=== PATIENT | female | born 1970 | race Caucasian/White ===

== ENCOUNTER 2016-12-27 12:06 | Emergency (ER) | payer OTHER ==
[2016-12-27 12:50] VITALS: TEMP 98.1
[2016-12-27] MEDS ORDERED: HYDROmorphone 1 MG/ML 1 ML SYRINGE IM STA (13:23)
--- NOTE | 2016-12-27 13:26 | ED ---
General Adult HPI - General Chief complaint: Back Pain/Injury Stated complaint: Back/leg pain Time Seen by Provider: 12/27/16 13:00 Source: patient, RN notes reviewed Mode of arrival: ambulatory Limitations: no limitations - History of Present Illness Initial comments: This is a 46-year-old female presents with an exacerbation of chronic low back pain. Patient states she was at her neurologist this morning who sent her over for a computed tomography scan due to worsening symptoms. Patient admits to radicular pain down the posterior right leg and increasing posterior right hip pain. Patient states she does have a history of sciatica but it has never been this bad before. Patient denies any numbness/tingling or weakness. Patient states the pain is worse with coughing and when she coughs she feels weak in her knees from the pain. Patient states she is getting a procedure to help with her nerve pain in 2 weeks by her neurologist. Patient has taken [place] at 7 :30 AM this morning. Patient denies any change in bowel or bladder function or loss of sensation to the saddle area. Patient is able to ambulate, but states is painful. Patient denies any recent fever, chills, shortness breath, chest pain, abdominal pain, nausea/vomiting/diarrhea, hematuria, headache, or visual changes, or any other complaints. - Related Data Home Medications Medication Instructions Recorded Confirmed Ipratropium [place] [Atrovent Hfa] 2 puff INHALATION QID PRN 03/16/14 12/27/16 Ipratropium/Albuterol Sulfate 1 tab PO TID PRN 03/16/14 12/27/16 [Combivent Respimat Inhaler] LORazepam [Ativan] 1 mg PO TID 03/16/14 12/27/16 Previous Rx's Medication Instructions Recorded Albuterol Inhaler [Ventolin Hfa 2 puff INHALATION Q4HR PRN #1 07/27/15 Inhaler] inhaler predniSONE 50 mg PO DAILY #5 tab 07/27/15 predniSONE 50 mg PO DAILY #5 tab 12/20/15 Allergies Allergy/AdvReac Type Severity Reaction Status Date / Time pregabalin [From Lyrica] Allergy Unknown Verified 12/27/16 12:51 Review of Systems ROS Statement: Those systems with pertinent positive or pertinent negative responses have been documented in the HPI. ROS Other: All systems not noted in ROS Statement are negative. Past Medical History Past Medical History: Asthma, COPD Additional Past Medical History / Comment(s): anxiety History of Any Multi-Drug Resistant Organisms: None Reported Past Surgical History: Adenoidectomy, Cholecystectomy, Hysterectomy, Tonsillectomy Past Psychological History: No Psychological Hx Reported Smoking Status: Current every day smoker Past Alcohol Use History: Occasional, Rare Past Drug Use History: None Reported General Exam - General Exam Comments Initial Comments: General: The patient is awake and alert, in no distress, and does not appear acutely ill. Neck: The neck is supple, there is no tenderness or JVD. Cardiovascular: There is a regular rate and rhythm. No murmur, rub or gallop is appreciated. Respiratory: Lungs are clear to auscultation, respirations are non-labored, breath sounds are equal. No wheezes, stridor, rales, or rhonchi. Musculoskeletal: There is tenderness to palpation over the lumbar spine and to the right side paraspinal muscles along with tenderness to palpation of the posterior right hip. Negative straight leg raise. Patient has full range of motion, strength 5/5 and Sensation intact. Posterior tibial pulses 2+ bilaterally. Neurological: A&O x 3. CN II-XII intact, There are no obvious motor or sensory deficits. Coordination appears grossly intact. Speech is normal. Skin: Skin is warm and dry and no rashes or lesions are noted. Psychiatric: Normal mood and affect. Limitations: no limitations Course Vital Signs 12/27/16 12/27/16 12:45 15:02 Temperature 98.1 F 98.1 F Pulse Rate 92 84 Respiratory 16 20 Rate Blood Pressure 146/92 105/84 O2 Sat by Pulse 98 Oximetry Medical Decision Making - Medical Decision Making This is a 46-year-old female with an exacerbation of chronic back pain. Patient is requesting a computed tomography scan for her neurologist. On physical exam patient is neurologically intact. There is tenderness to palpation over the lumbar spine and to the right side paraspinal muscles along with tenderness to palpation of the posterior right hip. Negative straight leg raise. Patient has full range of motion, strength 5/5 and Sensation intact. Posterior tibial pulses 2+ bilaterally. Patient was given Dilaudid in the [facility] for pain and felt relief from this. A CT scan of the lumbar spine without contrast was done and reviewed showing: # 1 no vertebral compression collapse or malalignment. #2 mild multilevel degenerative disc disease with bulging disks. No canal compromise seen. #3 there is mild narrowing of the right sided neural foramina at L4-L5 and L5-S1. Reported by Dr. Sheppard. I discussed results with patient. I discussed a course of steroids to help with the patient's pain but patient states she is restricted from using steroids and NSAIDs until the procedure she is having with her neurologist in a few days. I discussed that with patient should continue her at home pain medication along with heating pads and ice. I discussed return parameters. I discussed that patient should follow-up with her neurologist in the next 1-2 days and also with her primary care physician or return to the [facility] for any worsening symptoms or for any further concerns. Patient was receptive to this plan and patient was discharged home. Disposition Clinical Impression: Acute exacerbation of chronic low back pain Disposition: HOME SELF-CARE Condition: Good Instructions: Chronic Back Pain (ED) Additional Instructions: Please continue your at home pain medications along with ice and heat. Please continue to follow up here neurologist and also follow-up through primary care physician in the next 1-2 days. Please return to the [facility] for worsening symptoms or for any further concerns. Referrals: Isael Palomares DO [Primary Care Provider] - 1-2 days Time of Disposition: 14:57
--- NOTE | 2016-12-27 14:35 | CT ---
EXAMINATION TYPE: CT lumbar spine wo con DATE OF EXAM: 12/27/2016 2:18 PM COMPARISON: NONE HISTORY: 46-year-old female with low back pain. TECHNIQUE: Contiguous axial scanning of the lumbar spine without IV contrast. Coronal and sagittal re constructions performed. CT DLP: 377.6 mGycm Automated exposure control for dose reduction was used. FINDINGS: Moderate atherosclerotic calcifications throughout the abdominal aorta with areas of fusiform dilatat ion and no significant ectasia or aneurysm. Vertebral body heights are preserved and alignment is maintained. Small endplate Schmorl's nodes within the lower thoracic and upper lumbar spine. Very mild bulging di scs in the mid to lower lumbar spine. No significant spinal canal stenosis seen. On the left, no significant neuroforaminal stenosis. On the right, there is mild neuroforaminal narrowing at L4-L5 and L5-S1. IMPRESSION: 1. NO VERTEBRAL COMPRESSION COLLAPSE OR MALALIGNMENT. 2. MILD MULTILEVEL DEGENERATIVE DISC DISEASE WITH BULGING DISCS. NO CANAL COMPROMISE SEEN. 3. THERE IS MILD NARROWING OF THE RIGHT-SIDED NEURAL FORAMINA AT L4-L5 AND L5-S1.
[2016-12-27 15:06] VITALS: BP 105/84; PULSE 84; RESP 20
== END 2016-12-27 15:10 | disposition home or self-care (01) ==
LOC: EC 12:06
DX: G89.29 Other chronic pain (principal); M54.5 Low back pain; M25.551 Pain in right hip; R05 Cough; F17.200 Nicotine dependence, unspecified, uncomplicated; Z88.8 Allergy status to other drugs, medicaments and biological substances
CPT/HCPCS: 72131; 99283; 96372; J1170

== ENCOUNTER → 2017-01-03 | Outpatient (CLI) | payer OTHER ==
--- NOTE | 2017-01-03 12:15 | XR ---
EXAMINATION TYPE: XR Hip Complete RT DATE OF EXAM: 01/03/2017 12:01 PM CLINICAL HISTORY: pain TECHNIQUE: AP and frogleg views of the right hip are obtained. COMPARISON: None. FINDINGS: At the lateral aspect of the obturator foramen there is linear ossific density with cortica l thickening of the adjacent ischium. This is of uncertain etiology may reflect chronic avulsion inju ry. IMPRESSION: 1. Avulsion fracture as discussed above of indeterminate age is difficult to exclude. Similar CT cor relation.
== END | disposition home or self-care (01) ==
LOC: RADXRMAIN 11:37
PROVIDERS: ATTEND Psychiatry & Neurology Neurology
DX: M25.551 Pain in right hip (principal)
CPT/HCPCS: 73502

== ENCOUNTER → 2017-12-16 | Outpatient (CLI) | payer OTHER ==
--- NOTE | 2017-12-16 14:21 | XR ---
EXAMINATION TYPE: XR tibia fibula LT DATE OF EXAM: 12/16/2017 COMPARISON: NONE HISTORY: 47-year-old female with left-sided pain posterior calf. TECHNIQUE: 2 views FINDINGS: No acute fracture, subluxation, or dislocation seen. No periostitis or osteolysis. IMPRESSION: No acute osseous abnormality seen.
== END | disposition home or self-care (01) ==
LOC: RADXRMAIN 12:06
PROVIDERS: ATTEND Family Medicine
DX: M79.605 Pain in left leg (principal)

== ENCOUNTER 2018-02-12 12:28 | Emergency (ER) | payer OTHER ==
[2018-02-12] MEDS ORDERED: methylPREDNISolone SOD SUCCI 125 MG/2 ML VIAL IV STA (13:05)
[2018-02-12] MEDS ORDERED: SODIUM CHLORIDE 0.9% 500 ML IV STA (13:05)
[2018-02-12] MEDS ORDERED: IPRATROPIUM 0.5 MG/2.5 ML NEBU INHALATION STA (13:05)
[2018-02-12] MEDS ORDERED: ALBUTEROL NEBULIZED 2.5 MG/3 ML INHALATION STA (13:05)
--- NOTE | 2018-02-12 13:17 | ED ---
General Adult HPI - General Chief complaint: Shortness of Breath Stated complaint: CHEO, HYPERTENSION Time Seen by Provider: 02/12/18 13:00 Source: patient, RN notes reviewed, old records reviewed Mode of arrival: wheelchair Limitations: no limitations - History of Present Illness Initial comments: 47-year-old female presenting with 5 day history of cough and fatigue. Patient is a smoker, although she is cutting back. She has a history of COPD which has not required significant treatment in the past. She states her cough is productive of white sputum. She is complaining of right-sided posterior chest pain, worse with cough and deep breathing. This pain is sharp in nature. Denies any central chest pain. She has had some belching and central burning with no radiating central chest pain. No history of CAD. No nausea vomiting. No fever, patient has had chills. She complains of some nasal congestion which she attributed to seasonal ALLERGIES. She does have a remote history of spontaneous pneumothorax when she was 20. She states this pain in the right side of her chest is different. - Related Data Home Medications Medication Instructions Recorded Confirmed Ipratropium/Albuterol Sulfate 1 puff INHALATION RT-BID 03/16/14 02/12/18 [Combivent Respimat Inhaler] Albuterol Inhaler [Ventolin Hfa 2 puff INHALATION RT-Q4H PRN 02/12/18 02/12/18 Inhaler] Gabapentin [Neurontin] 100 mg PO DAILY 02/12/18 02/12/18 Gabapentin [Neurontin] 300 mg PO HS 02/12/18 02/12/18 HYDROcodone/APAP 7.5-325MG [[place] 1 tab PO QID 02/12/18 02/12/18 7.5-325] Meclizine [Antivert] 25 mg PO BID 02/12/18 02/12/18 Meloxicam [Mobic] 15 mg PO DAILY 02/12/18 02/12/18 busPIRone HCL 15 mg PO BID 02/12/18 02/12/18 hydrOXYzine HCL [Atarax] 50 mg PO QID 02/12/18 02/12/18 tiZANidine [Zanaflex] 2 mg PO HS 02/12/18 02/12/18 tiZANidine [Zanaflex] 4 mg PO HS 02/12/18 02/12/18 traZODone HCL 100 mg PO HS 02/12/18 02/12/18 Previous Rx's Medication Instructions Recorded Albuterol Inhaler [Ventolin Hfa 1 - 2 puff INHALATION Q4HR PRN #1 02/12/18 Inhaler] inhaler Azithromycin [Zithromax Z-pack] 0 mg PO DIRECTED #6 tab 02/12/18 predniSONE 50 mg PO DAILY #5 tab 02/12/18 Allergies Allergy/AdvReac Type Severity Reaction Status Date / Time pregabalin [From Lyrica] Allergy Unknown Verified 02/12/18 12:55 Review of Systems ROS Statement: Those systems with pertinent positive or pertinent negative responses have been documented in the HPI. ROS Other: All systems not noted in ROS Statement are negative. Past Medical History Past Medical History: Asthma, COPD Additional Past Medical History / Comment(s): anxiety, neuropathy rt side, back and neck pain History of Any Multi-Drug Resistant Organisms: None Reported Past Surgical History: Adenoidectomy, Cholecystectomy, Hysterectomy, Tonsillectomy Additional Past Surgical History / Comment(s): ablation to back Past Psychological History: No Psychological Hx Reported Smoking Status: Current every day smoker Past Alcohol Use History: Rare Past Drug Use History: None Reported General Exam Limitations: no limitations General appearance: alert, in no apparent distress Head exam: Present: atraumatic, normocephalic Eye exam: Present: normal appearance, PERRL, EOMI ENT exam: Present: normal exam Neck exam: Present: normal inspection. Absent: tenderness, meningismus Respiratory exam: Present: decreased breath sounds. Absent: respiratory distress, wheezes, rhonchi, accessory muscle use Cardiovascular Exam: Present: normal rhythm, tachycardia GI/Abdominal exam: Present: soft. Absent: distended, tenderness Extremities exam: Present: normal inspection, normal capillary refill. Absent: tenderness, calf tenderness Neurological exam: Present: alert, oriented X3, CN II-XII intact. Absent: motor sensory deficit Psychiatric exam: Present: normal affect, normal mood Skin exam: Present: warm, dry, intact. Absent: cyanosis, diaphoretic Course Vital Signs 02/12/18 02/12/18 02/12/18 12:33 13:26 13:55 Temperature 96.9 F L Pulse Rate 103 H 84 88 Respiratory 18 Rate Blood Pressure 106/78 O2 Sat by Pulse 98 Oximetry EKG Findings - EKG Comments: EKG Findings:: EKG, normal sinus rhythm, biatrial enlargement, rate of 95, NC interval 126, QRS duration 84, QTC 469, there is no ST segment elevation Medical Decision Making - Medical Decision Making 47-year-old female presenting with cough and sharp chest pain worse with cough. Patient does have history of COPD. On exam she has diminished air entry bilaterally. She is given albuterol, Atrovent and steroids. On reevaluation she is improved air entry and is feeling somewhat better. Laboratory studies are obtained, normal CBC, normal CMP, negative troponin and d-dimer. EKG is nonischemic. Chest x-ray negative for focal pneumonia, and negative for pneumothorax. Patient will be treated for COPD exacerbation and will follow-up with her primary care physician. She is encouraged to quit smoking. - Lab Data Result diagrams: 02/12/18 13:35 02/12/18 13:35 Lab Results 02/12/18 02/12/18 02/12/18 Range/Units 13:35 13:35 13:35 WBC 7.6 (3.8-10.6) k/uL RBC 4.90 (3.80-5.40) m/uL Hgb 15.3 (11.4-16.0) gm/dL Hct 45.0 (34.0-46.0) % MCV 91.9 (80.0-100.0) fL MCH 31.3 (25.0-35.0) pg MCHC 34.0 (31.0-37.0) g/dL RDW 12.6 (11.5-15.5) % Plt Count 269 (150-450) k/uL Neutrophils % 63 % Lymphocytes % 27 % Monocytes % 6 % Eosinophils % 1 % Basophils % 1 % Neutrophils # 4.8 (1.3-7.7) k/uL Lymphocytes # 2.1 (1.0-4.8) k/uL Monocytes # 0.4 (0-1.0) k/uL Eosinophils # 0.1 (0-0.7) k/uL Basophils # 0.1 (0-0.2) k/uL PT (9.0-12.0) sec INR (<1.2) APTT (22.0-30.0) sec D-Dimer (<0.60) mg/L FEU Sodium 141 (137-145) mmol/L Potassium 4.5 (3.5-5.1) mmol/L Chloride 105 (98-107) mmol/L Carbon Dioxide 24 (22-30) mmol/L Anion Gap 12 mmol/L BUN 14 (7-17) mg/dL Creatinine 0.88 (0.52-1.04) mg/dL Est GFR (CKD-EPI)AfAm >90 (>60 ml/min/1.73 sqM) Est GFR (CKD-EPI)NonAf 79 (>60 ml/min/1.73 sqM) Glucose 81 (74-99) mg/dL Calcium 9.8 (8.4-10.2) mg/dL Magnesium 2.0 (1.6-2.3) mg/dL Total Bilirubin 0.5 (0.2-1.3) mg/dL AST 15 (14-36) U/L ALT 17 (9-52) U/L Alkaline Phosphatase 87 (38-126) U/L Total Creatine Kinase 71 (30-135) U/L CK-MB (CK-2) 1.0 (0.0-2.4) ng/mL CK-MB (CK-2) Rel Index 1.4 Troponin I <0.012 (0.000-0.034) ng/mL NT-Pro-B Natriuret Pep pg/mL Total Protein 6.8 (6.3-8.2) g/dL Albumin 4.3 (3.5-5.0) g/dL 02/12/18 02/12/18 Range/Units 13:35 13:35 WBC (3.8-10.6) k/uL RBC (3.80-5.40) m/uL Hgb (11.4-16.0) gm/dL Hct (34.0-46.0) % MCV (80.0-100.0) fL MCH (25.0-35.0) pg MCHC (31.0-37.0) g/dL RDW (11.5-15.5) % Plt Count (150-450) k/uL Neutrophils % % Lymphocytes % % Monocytes % % Eosinophils % % Basophils % % Neutrophils # (1.3-7.7) k/uL Lymphocytes # (1.0-4.8) k/uL Monocytes # (0-1.0) k/uL Eosinophils # (0-0.7) k/uL Basophils # (0-0.2) k/uL PT 10.2 (9.0-12.0) sec INR 1.0 (<1.2) APTT 24.8 (22.0-30.0) sec D-Dimer 0.31 (<0.60) mg/L FEU Sodium (137-145) mmol/L Potassium (3.5-5.1) mmol/L Chloride (98-107) mmol/L Carbon Dioxide (22-30) mmol/L Anion Gap mmol/L BUN (7-17) mg/dL Creatinine (0.52-1.04) mg/dL Est GFR (CKD-EPI)AfAm (>60 ml/min/1.73 sqM) Est GFR (CKD-EPI)NonAf (>60 ml/min/1.73 sqM) Glucose (74-99) mg/dL Calcium (8.4-10.2) mg/dL Magnesium (1.6-2.3) mg/dL Total Bilirubin (0.2-1.3) mg/dL AST (14-36) U/L ALT (9-52) U/L Alkaline Phosphatase (38-126) U/L Total Creatine Kinase (30-135) U/L CK-MB (CK-2) (0.0-2.4) ng/mL CK-MB (CK-2) Rel Index Troponin I (0.000-0.034) ng/mL NT-Pro-B Natriuret Pep 85 pg/mL Total Protein (6.3-8.2) g/dL Albumin (3.5-5.0) g/dL Disposition Clinical Impression: Acute exacerbation of chronic obstructive airways disease Disposition: HOME SELF-CARE Condition: Good Instructions: Chronic Bronchitis (ED) Prescriptions: Albuterol Inhaler [Ventolin Hfa Inhaler] 1 - 2 puff INHALATION Q4HR PRN #1 inhaler PRN Reason: Shortness Of Breath Azithromycin [Zithromax Z-pack] 0 mg PO DIRECTED #6 tab predniSONE 50 mg PO DAILY #5 tab Is patient prescribed a controlled substance at d/c from ED?: No Referrals: Isael Palomares DO [Primary Care Provider] - 1-2 days Time of Disposition: 14:34
--- NOTE | 2018-02-12 13:27 | XR ---
EXAMINATION TYPE: XR chest 2V DATE OF EXAM: 02/12/2018 COMPARISON: Chest x-ray July 27, 2015. HISTORY: History of COPD with cough and chest pain. TECHNIQUE: Frontal and lateral views of the chest are obtained. FINDINGS: Underlying emphysematous change is redemonstrated. There is no focal air space opacity, pl eural effusion, or pneumothorax seen. The cardiac silhouette size is within normal limits. Site unde rlying scoliotic curvature is stable. IMPRESSION: Chronic emphysematous change without acute pulmonary process. No significant change from prior.
[2018-02-12 13:46] LABS: Basophils # (A) 0.1 k/uL (0-0.2); Basophils % (A) 1 %; Eosinophils # (A) 0.1 k/uL (0-0.7); Eosinophils % (A) 1 %; HGB 15.3 gm/dL (11.4-16.0); Lymphocytes # (A) 2.1 k/uL (1.0-4.8); Lymphocytes % (A) 27 %; MCH 31.3 pg (25.0-35.0); MCV 91.9 fL (80.0-100.0); Mean Platelet Volume 7.6; Monocytes # (A) 0.4 k/uL (0-1.0); Monocytes % (A) 6 %; Neutrophils # (A) 4.8 k/uL (1.3-7.7); Neutrophils % (A) 63 %; Platelet Count 269 k/uL (150-450); RDW 12.6 % (11.5-15.5); WBC 7.6 k/uL (3.8-10.6)
[2018-02-12 14:00] LABS: ALT 17 U/L (9-52); AST 15 U/L (14-36); Albumin 4.3 g/dL (3.5-5.0); Alkaline Phosphatase 87 U/L (38-126); Anion Gap 12 mmol/L; Blood Urea Nitrogen 14 mg/dL (7-17); Calcium 9.8 mg/dL (8.4-10.2); Carbon Dioxide 24 mmol/L (22-30); Chloride 105 mmol/L (98-107); D-Dimer 0.31 mg/L FEU (<0.60); Glucose 81 mg/dL (74-99); Partial Thromboplastin Time 24.8 sec (22.0-30.0); Potassium 4.5 mmol/L (3.5-5.1); Prothrombin Time 10.2 sec (9.0-12.0); Sodium 141 mmol/L (137-145); Total Bilirubin 0.5 mg/dL (0.2-1.3); Total Protein 6.8 g/dL (6.3-8.2)
[2018-02-12 14:10] LABS: Creatine Kinase 71 U/L (30-135)
[2018-02-12 14:24] LABS: Troponin I <0.012 ng/mL (0.000-0.034)
[2018-02-12 14:53] VITALS: BP 103/66; PULSE 101; RESP 20; TEMP 98.3
== END 2018-02-12 14:54 | disposition home or self-care (01) ==
LOC: EC 12:28
DX: J44.1 Chronic obstructive pulmonary disease with (acute) exacerbation (principal); I10 Essential (primary) hypertension; F41.9 Anxiety disorder, unspecified; G62.9 Polyneuropathy, unspecified; F17.200 Nicotine dependence, unspecified, uncomplicated; Z79.1 Long term (current) use of non-steroidal anti-inflammatories (NSAID); Z79.891 Long term (current) use of opiate analgesic; Z79.899 Other long term (current) drug therapy; Z88.8 Allergy status to other drugs, medicaments and biological substances
CPT/HCPCS: 36415; 94640; 93005; 85379; 83880; 80053; 82550; 82553; 83735; 84484; 85025; 85610; 85730; 87040; 71046; 99285; 96374; 96361; J2930

== ENCOUNTER → 2018-04-24 | Outpatient (CLI) | payer OTHER ==
--- NOTE | 2018-04-24 15:47 | CT ---
EXAMINATION TYPE: CT abdomen w con DATE OF EXAM: 04/24/2018 COMPARISON: NONE HISTORY: 47-year-old female complains of epigastric pain and nausea. TECHNIQUE: Contiguous axial scanning of the abdomen abdomen following administration of 100 ml Isovue 300 IV contrast. Delayed images through the kidneys and coronal/sagittal reconstructions performed. CT DLP: 219 mGycm Automated exposure control for dose reduction was used. FINDINGS: Heart normal size without pericardial effusion. Some emphysematous changes are noted in the visualize d lower lungs. No pleural effusion. Liver mildly enlarged. 19.0 cm. No focal liver lesion. Portal venous system is patent. Mild prominence to the bile duct 1.1 cm likely due to postcholecystectomy status. This can be confirm ed with alkaline phosphatase and bilirubin levels. Small diverticulum of the second portion of the duodenum projecting to the pancreatic head region. Adrenal glands, right kidney, spleen, and pancreas show no gross abnormality. Somewhat striated appearance to the 2 areas in the upper pole of the left kidney may be due to partia l volume averaging affects on the delayed kidney images, slice 15. No dilated small bowel, free fluid, or free air. Some prominent fluid filled small bowel loops are pr esent in the lower abdomen and there is a moderate to large stool burden in the visualized portions o f the colon. No pericolonic inflammatory change. Moderate atherosclerotic calcifications within the abdominal aorta and iliac arteries with fusiform d ilatation of the distal abdominal aorta up to 2.4 cm after short segment focal 9 mm wide narrowing. T here is also mild fusiform dilatation just above 2.2 cm. No aneurysm. No mesenteric or retroperitoneal lymphadenopathy seen. Pelvis is not imaged. Bones: No osseous destructive process. IMPRESSION: 1. A COUPLE STRIATED AREAS IN THE upper pole of the left kidney on delayed kidney images could be par tial volume artifacts. Correlate to exclude pyelonephritis. 2. Dilated bile duct at 1.1 cm likely secondary to postcholecystectomy status. Correlate with alkalin e phosphatase and bilirubin levels. 3. Mild hepatomegaly (19.0 cm). 4. Moderate to large stool burden. Also, some prominent fluid-filled small bowel loops in the lower a bdomen could represent enteritis. Clinically correlate. 5. Moderate atherosclerotic calcifications. There are 2 segments of fusiform dilatation of the infrar enal abdominal aorta (measuring up to 2.4 cm) with focal narrowing of the aorta down to 9 mm interpos ed between. No yaniv aneurysm.
== END | disposition home or self-care (01) ==
LOC: RADCTMAIN 14:10
PROVIDERS: ATTEND Family Medicine
DX: K83.8 Other specified diseases of biliary tract (principal); R16.0 Hepatomegaly, not elsewhere classified; I70.0 Atherosclerosis of aorta; I77.811 Abdominal aortic ectasia; Q25.1 Coarctation of aorta
CPT/HCPCS: 74160; Q9967

== ENCOUNTER 2019-10-26 13:52 | Emergency (ER) | payer OTHER ==
[2019-10-26 14:42] VITALS: TEMP 97.6
[2019-10-26] MEDS ORDERED: SODIUM CHLORIDE 0.9% 1,000 ML IV STA (15:18)
[2019-10-26] MEDS ORDERED: ONDANSETRON 4 MG/2 ML VIAL IVP STA (15:18)
[2019-10-26] MEDS ORDERED: methylPREDNISolone SOD SUCCI 125 MG/2 ML VIAL IV STA (15:20)
[2019-10-26] MEDS ORDERED: IPRATROPIUM-ALBUTEROL 3 ML NEB INHALATION STA (15:20)
[2019-10-26 15:44] LABS: Basophils # (A) 0.1 k/uL (0-0.2); Basophils % (A) 1 %; Eosinophils # (A) 0.1 k/uL (0-0.7); Eosinophils % (A) 1 %; HCT 43.1 % (34.0-46.0); HGB 14.1 gm/dL (11.4-16.0); Lymphocytes # (A) 2.2 k/uL (1.0-4.8); Lymphocytes % (A) 28 %; MCH 32.5 pg (25.0-35.0); MCHC 32.8 g/dL (31.0-37.0); MCV 99.3 fL (80.0-100.0); Monocytes # (A) 0.4 k/uL (0-1.0); Monocytes % (A) 5 %; Neutrophils # (A) 5.1 k/uL (1.3-7.7); Neutrophils % (A) 64 %; Platelet Count 192 k/uL (150-450); RBC 4.34 m/uL (3.80-5.40); RDW 13.4 % (11.5-15.5)
[2019-10-26 15:52] LABS: Albumin 3.5 g/dL (3.5-5.0); Calcium 9.1 mg/dL (8.4-10.2); Magnesium 1.7 mg/dL (1.6-2.3); Potassium 4.4 mmol/L (3.5-5.1); Total Bilirubin 0.3 mg/dL (0.2-1.3); Total Protein 5.9 g/dL (6.3-8.2)
--- NOTE | 2019-10-26 16:51 | XR ---
EXAMINATION TYPE: XR chest 2V DATE OF EXAM: 10/26/2019 COMPARISON: 08/22/2018 HISTORY: Weakness TECHNIQUE: FINDINGS: Heart is normal. Lungs are clear. Costophrenic angles are clear. There is minimal pleural s carring at the lung apices. There are no hilar masses. There is no pleural effusion. There is mild pu lmonary hyperinflation and flattening of the diaphragm. Bony thorax appears intact. IMPRESSION: There is probably some COPD. No acute lung disease. No change.
--- NOTE | 2019-10-26 16:51 | ED ---
General Adult HPI - General Chief complaint: Nausea/Vomiting/Diarrhea Stated complaint: Dehydration Time Seen by Provider: 10/26/19 14:32 Source: patient Mode of arrival: ambulatory Limitations: no limitations - History of Present Illness Initial comments: The patient is a 49-year-old female with past history of COPD who presents to the emergency room with reported cough, nausea, chest wall pain and diarrhea. She states that her symptoms have been present since Saturday. She has had a cough with yellow-green sputum production. Admits to chills without recorded fevers. She is a COPD patient has been using her for inhalers as directed. States that she still feels short of breath and is wheezing. Admits to multiple sick contacts including her fianc. Denies chest pain but admits to chest wall pain. No ripping or tearing sensation to her back. Does not wear oxygen at home. She denies any abdominal pain. Admits to multiple episodes of nonbloody diarrhea. No recent antibiotic use. Denies history of C. diff. No urinary changes to include dysuria, hematuria or difficulty voiding. There are no alleviating, precipitating or modifying factors - Related Data Home Medications Medication Instructions Recorded Confirmed Ipratropium/Albuterol Sulfate 1 puff INHALATION RT-QID 03/16/14 08/22/18 [Combivent Respimat Inhaler] Gabapentin [Neurontin] 300 mg PO BID 02/12/18 08/22/18 HYDROcodone/APAP 7.5-325MG [[place] 1 tab PO QID 02/12/18 08/22/18 7.5-325] busPIRone HCL 15 mg PO BID 02/12/18 08/22/18 hydrOXYzine HCL [Atarax] 50 mg PO BID 02/12/18 08/22/18 tiZANidine [Zanaflex] 2 mg PO HS 02/12/18 08/22/18 tiZANidine [Zanaflex] 4 mg PO HS 02/12/18 08/22/18 traZODone HCL 100 mg PO HS 02/12/18 08/22/18 Amoxic-Pot Clav 875-125Mg 1 tab PO BID 08/22/18 08/22/18 [Augmentin 875-125] Promethaz-Cod 6.25-10 mg/5 ml 5 ml PO Q4HR PRN 08/22/18 08/22/18 [Phenergan with Codeine] Previous Rx's Medication Instructions Recorded Albuterol Inhaler [Ventolin Hfa 1 - 2 puff INHALATION Q4HR PRN #1 02/12/18 Inhaler] inhaler Ipratropium-Albuterol Nebulize 3 ml INHALATION Q4H #30 neb 08/22/18 [Duoneb 0.5 mg-3 mg/3 ml Soln] predniSONE [Deltasone] 40 mg PO DAILY #8 tab 08/22/18 Azithromycin [Zithromax Z-pack] 250 mg PO DIRECTED #1 pack 10/26/19 guaiFENesin-Coden 100-10MG/5ML 10 ml PO Q6H PRN 3 Days #120 ml 10/26/19 [Robitussin AC] predniSONE [Deltasone] 20 mg PO BID #10 tab 10/26/19 Allergies Allergy/AdvReac Type Severity Reaction Status Date / Time amitriptyline [From Elavil] Allergy Unknown Verified 10/26/19 14:21 pregabalin [From Lyrica] Allergy Unknown Verified 10/26/19 14:21 Review of Systems ROS Statement: Those systems with pertinent positive or pertinent negative responses have been documented in the HPI. ROS Other: All systems not noted in ROS Statement are negative. Past Medical History Past Medical History: Asthma, COPD Additional Past Medical History / Comment(s): anxiety, neuropathy rt side, back and neck pain History of Any Multi-Drug Resistant Organisms: None Reported Past Surgical History: Adenoidectomy, Cholecystectomy, Hysterectomy, Tonsillectomy Additional Past Surgical History / Comment(s): ablation to back Past Psychological History: No Psychological Hx Reported Smoking Status: Current every day smoker Past Alcohol Use History: Rare Past Drug Use History: None Reported General Exam Limitations: no limitations General appearance: alert, in no apparent distress Head exam: Present: atraumatic, normocephalic, normal inspection Eye exam: Present: normal appearance, PERRL, EOMI. Absent: scleral icterus, conjunctival injection, periorbital swelling ENT exam: Present: normal exam, mucous membranes moist Neck exam: Present: normal inspection. Absent: tenderness, meningismus, lymphadenopathy Respiratory exam: Present: wheezes, decreased breath sounds, other (bronchospastic cough). Absent: respiratory distress, rales, rhonchi, stridor Cardiovascular Exam: Present: regular rate, normal rhythm, normal heart sounds. Absent: systolic murmur, diastolic murmur, rubs, gallop, clicks GI/Abdominal exam: Present: soft, normal bowel sounds. Absent: distended, tenderness, guarding, rebound, rigid Extremities exam: Present: normal inspection, full ROM, normal capillary refill. Absent: tenderness, pedal edema, joint swelling, calf tenderness Back exam: Present: normal inspection Neurological exam: Present: alert, oriented X3, CN II-XII intact Psychiatric exam: Present: normal affect, normal mood Skin exam: Present: warm, dry, intact, normal color. Absent: rash Course Vital Signs 10/26/19 10/26/19 10/26/19 14:19 14:41 17:29 Temperature 98.3 F 97.6 F Pulse Rate 86 68 78 Respiratory 22 18 Rate Blood Pressure 116/82 117/92 O2 Sat by Pulse 99 100 Oximetry 10/26/19 10/26/19 17:45 19:13 Temperature 97.6 F Pulse Rate 78 78 Respiratory 16 16 Rate Blood Pressure 94/67 94/67 O2 Sat by Pulse 97 97 Oximetry EKG Findings - EKG Comments: EKG Findings:: EKG demonstrates normal sinus rhythm with ventricular rate of 74. LA interval 128. QRS 84. QTC of 459. No acute ST segment elevations or depressions concerning for ischemic changes Medical Decision Making - Medical Decision Making Upon arrival the patient was placed into room 18. A thorough history and physical exam is performed. The patient does have a bronchospastic cough with wheezing. She is provided with a DuoNeb breathing treatment and 125 mg of Solu- Medrol. I provided her with 4 mg of Zofran for her nausea and a liter bolus because of her reported diarrhea. The patient was sent from her clinic however he did not provide the patient with any treatment. I did recommend laboratory studies. CBC, CMP are unremarkable. Lactic acid 0.9. Urinalysis is negative. Influenza is negative. Chest x-ray demonstrates no acute lung disease. I reevaluated the patient she feels much improved. I discussed diagnosis, differential treatment options. The patient will be discharged home with a prescription for Robitussin-AC. Side effect profile discussed. She does fill out an opiate start talking form. I will also provided patient with a prescription for azithromycin and she is a smoker. Provide her with a steroid burst. She is to continue using her inhalers. Return to the emergency room for any new or worsening symptoms. She needs to follow up with her family care doctor in 2-4 days. The patient was given a work note. She was discharged home in stable condition - Lab Data Result diagrams: 10/26/19 15:20 10/26/19 15:20 Lab Results 10/26/19 10/26/19 10/26/19 Range/Units 15:20 15:20 15:35 WBC 8.0 (3.8-10.6) k/uL RBC 4.34 (3.80-5.40) m/uL Hgb 14.1 (11.4-16.0) gm/dL Hct 43.1 (34.0-46.0) % MCV 99.3 (80.0-100.0) fL MCH 32.5 (25.0-35.0) pg MCHC 32.8 (31.0-37.0) g/dL RDW 13.4 (11.5-15.5) % Plt Count 192 (150-450) k/uL Neutrophils % 64 % Lymphocytes % 28 % Monocytes % 5 % Eosinophils % 1 % Basophils % 1 % Neutrophils # 5.1 (1.3-7.7) k/uL Lymphocytes # 2.2 (1.0-4.8) k/uL Monocytes # 0.4 (0-1.0) k/uL Eosinophils # 0.1 (0-0.7) k/uL Basophils # 0.1 (0-0.2) k/uL Sodium 137 (137-145) mmol/L Potassium 4.4 (3.5-5.1) mmol/L Chloride 109 H (98-107) mmol/L Carbon Dioxide 24 (22-30) mmol/L Anion Gap 4 mmol/L BUN 13 (7-17) mg/dL Creatinine 0.90 (0.52-1.04) mg/dL Est GFR (CKD-EPI)AfAm 87 (>60 ml/min/1.73 sqM) Est GFR (CKD-EPI)NonAf 76 (>60 ml/min/1.73 sqM) Glucose 88 (74-99) mg/dL Plasma Lactic Acid Juan 0.9 (0.7-2.0) mmol/L Calcium 9.1 (8.4-10.2) mg/dL Magnesium 1.7 (1.6-2.3) mg/dL Total Bilirubin 0.3 (0.2-1.3) mg/dL AST 24 (14-36) U/L ALT 16 (4-34) U/L Alkaline Phosphatase 94 (38-126) U/L Total Protein 5.9 L (6.3-8.2) g/dL Albumin 3.5 (3.5-5.0) g/dL Lipase 94 (23-300) U/L Urine Color Urine Appearance (Clear) Urine pH (5.0-8.0) Ur [place] (1.001-1.035) Urine Protein (Negative) Urine Glucose (UA) (Negative) Urine Ketones (Negative) Urine Blood (Negative) Urine Nitrite (Negative) Urine Bilirubin (Negative) Urine Urobilinogen (<2.0) mg/dL Ur Leukocyte Esterase (Negative) Influenza Type A RNA (Not Detectd) Influenza Type B (PCR) (Not Detectd) 10/26/19 10/26/19 Range/Units Unknown Unknown WBC (3.8-10.6) k/uL RBC (3.80-5.40) m/uL Hgb (11.4-16.0) gm/dL Hct (34.0-46.0) % MCV (80.0-100.0) fL MCH (25.0-35.0) pg MCHC (31.0-37.0) g/dL RDW (11.5-15.5) % Plt Count (150-450) k/uL Neutrophils % % Lymphocytes % % Monocytes % % Eosinophils % % Basophils % % Neutrophils # (1.3-7.7) k/uL Lymphocytes # (1.0-4.8) k/uL Monocytes # (0-1.0) k/uL Eosinophils # (0-0.7) k/uL Basophils # (0-0.2) k/uL Sodium (137-145) mmol/L Potassium (3.5-5.1) mmol/L Chloride (98-107) mmol/L Carbon Dioxide (22-30) mmol/L Anion Gap mmol/L BUN (7-17) mg/dL Creatinine (0.52-1.04) mg/dL Est GFR (CKD-EPI)AfAm (>60 ml/min/1.73 sqM) Est GFR (CKD-EPI)NonAf (>60 ml/min/1.73 sqM) Glucose (74-99) mg/dL Plasma Lactic Acid Juan (0.7-2.0) mmol/L Calcium (8.4-10.2) mg/dL Magnesium (1.6-2.3) mg/dL Total Bilirubin (0.2-1.3) mg/dL AST (14-36) U/L ALT (4-34) U/L Alkaline Phosphatase (38-126) U/L Total Protein (6.3-8.2) g/dL Albumin (3.5-5.0) g/dL Lipase (23-300) U/L Urine Color Yellow Urine Appearance Clear (Clear) Urine pH 6.5 (5.0-8.0) Ur [place] 1.019 (1.001-1.035) Urine Protein Negative (Negative) Urine Glucose (UA) Negative (Negative) Urine Ketones Negative (Negative) Urine Blood Negative (Negative) Urine Nitrite Negative (Negative) Urine Bilirubin Negative (Negative) Urine Urobilinogen <2.0 (<2.0) mg/dL Ur Leukocyte Esterase Negative (Negative) Influenza Type A RNA Not Detected (Not Detectd) Influenza Type B (PCR) Not Detected (Not Detectd) Disposition Clinical Impression: Cough, Tracheobronchitis, Diarrhea Disposition: HOME SELF-CARE Condition: Stable Instructions (If sedation given, give patient instructions): Acute Nausea and Vomiting (ED), Acute Diarrhea (ED) Additional Instructions: Please follow up with the primary care doctor in 2-4 days. Return to the emergency room for any new or worsening symptoms Prescriptions: predniSONE [Deltasone] 20 mg PO BID #10 tab guaiFENesin-Coden 100-10MG/5ML [Robitussin AC] 10 ml PO Q6H PRN 3 Days #120 ml PRN Reason: Cough Azithromycin [Zithromax Z-pack] 250 mg PO DIRECTED #1 pack Is patient prescribed a controlled substance at d/c from ED?: Yes When asked, does pt state using other controlled substances?: No If prescribed controlled substance>3 days was MAPS reviewed?: Prescribed <3 Days If opioid is for acute pain is fill amount 7 days or less?: Yes If Rx opioid, was Start Talking consent form obtained?: Yes Referrals: Isael Palomares DO [Primary Care Provider] - 1-2 days Time of Disposition: 18:23
[2019-10-26 17:23] LABS: Appearance,Urine Clear (Clear); Bilirubin,Urine Negative (Negative); Blood,Urine Negative (Negative); Color,Urine Yellow; Glucose,Urine (UA) Negative (Negative); Ketones,Urine Negative (Negative); Leukocyte Esterase,Urine Negative (Negative); Nitrite,Urine Negative (Negative); PH, Urine 6.5 (5.0-8.0); Protein,Urine Negative (Negative); Specific Gravity,Urine 1.019 (1.001-1.035); Urobilinogen,Urine <2.0 mg/dL (<2.0)
[2019-10-26 17:33] VITALS: PULSE 78
[2019-10-26 17:46] VITALS: BP 94/67; RESP 16
== END 2019-10-26 19:14 | disposition home or self-care (01) ==
LOC: EC 13:52
DX: J40 Bronchitis, not specified as acute or chronic (principal); R19.7 Diarrhea, unspecified; F17.200 Nicotine dependence, unspecified, uncomplicated; F41.9 Anxiety disorder, unspecified; Z79.899 Other long term (current) drug therapy; Z88.8 Allergy status to other drugs, medicaments and biological substances
CPT/HCPCS: 99284; 96374; 96375; 36415; 94640; 93005; 80053; 83605; 83690; 83735; 85025; 81003; 87502; 71046; 96361; J2930; J2405

== ENCOUNTER 2019-11-29 20:56 | Inpatient (IN) | payer OTHER ==
[2019-11-29] MEDS ORDERED: IPRATROPIUM-ALBUTEROL 3 ML NEB INHALATION STA (21:22)
[2019-11-29] MEDS ORDERED: methylPREDNISolone SOD SUCCI 125 MG/2 ML VIAL IV STA (21:31)
[2019-11-29] MEDS ORDERED: MAGNESIUM SULFATE-D5W PMX 1 GM in DEXTROSE/WATER 1 100ML.BAG IVPB ONE (21:41)
[2019-11-29] MEDS ORDERED: ALBUTEROL NEBULIZED 2.5 MG/3 ML INHALATION STA (21:42)
[2019-11-29 21:52] LABS: Basophils % (A) 0 %; Eosinophils # (A) 0.1 k/uL (0-0.7); Eosinophils % (A) 1 %; HCT 44.6 % (34.0-46.0); HGB 14.7 gm/dL (11.4-16.0); Lymphocytes # (A) 2.1 k/uL (1.0-4.8); Lymphocytes % (A) 12 %; MCH 32.3 pg (25.0-35.0); MCHC 32.9 g/dL (31.0-37.0); Mean Platelet Volume 7.9; Monocytes % (A) 6 %; Neutrophils # (A) 14.6 k/uL (1.3-7.7); Neutrophils % (A) 81 %; Platelet Count 279 k/uL (150-450); RBC 4.55 m/uL (3.80-5.40)
[2019-11-29 22:01] LABS: ALT 15 U/L (4-34); AST 22 U/L (14-36); African American GFR (CKD) >90 (>60 ml/min/1.73 sqM); Albumin 4.1 g/dL (3.5-5.0); Alkaline Phosphatase 105 U/L (38-126); Anion Gap 6 mmol/L; Blood Urea Nitrogen 11 mg/dL (7-17); Calcium 9.4 mg/dL (8.4-10.2); Carbon Dioxide 29 mmol/L (22-30); Chloride 96 mmol/L (98-107); Glucose 79 mg/dL (74-99); INR 0.9 (<1.2); Non-African American GFR(CKD) 89 (>60 ml/min/1.73 sqM); Potassium 4.3 mmol/L (3.5-5.1); Sodium 131 mmol/L (137-145); Total Bilirubin 0.4 mg/dL (0.2-1.3)
[2019-11-29 22:02] LABS: Partial Thromboplastin Time 24.1 sec (22.0-30.0); Prothrombin Time 9.3 sec (9.0-12.0)
--- NOTE | 2019-11-29 22:29 | XR ---
EXAMINATION TYPE: XR chest 2V DATE OF EXAM: 11/29/2019 COMPARISON: 10/26/2019 HISTORY: Nausea and vomiting TECHNIQUE: 2 views FINDINGS: There is pulmonary hyperinflation with flattening of the diaphragm. Heart is normal. Lungs are clear of consolidation. There are no hilar masses. Bony thorax is intact. IMPRESSION: COPD. No acute lung disease. No change.
[2019-11-29] MEDS ORDERED: SODIUM CHLORIDE 0.9% 1,000 ML IV ONE (22:57)
[2019-11-29] MEDS ORDERED: NALOXONE 0.4 MG/ML 1 ML VIAL IV PRN (23:00)
--- NOTE | 2019-11-29 23:00 | ED ---
SOB HPI - General Chief Complaint: Shortness of Breath Stated Complaint: CHEO Time Seen by Provider: 11/29/19 21:00 Source: patient Mode of arrival: wheelchair Limitations: physical limitation - History of Present Illness Initial Comments: The patient is a 49-year-old female with past medical history of asthma and COPD who presents to the emergency room with reported shortness of breath for the past 3 days. The patient denies being on home oxygen. 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 States that she has had increased cough with yellow sputum production. She was recently hospitalized in October for similar symptoms. States that her symptoms at this time are much worse. She arrives to triage tachycardic with an oxygen saturation of 86%. She has significant increased worker breathing. She admits to chest wall discomfort from coughing. Has not been taking any medications at home [id number] for her symptoms. She does have prescribed inhalers which she states she has almost completely used up because she is using them so frequently. Last dose of steroids with with her recent hospitalization. She denies any cardiac history. No history of DVT or PE. No calf pain or swelling. Admits to chills without fevers. No sick contacts with similar symptoms. Denies ear pain or sore throat. There are no other alleviating, precipitating or modifying factors - Related Data Home Medications Medication Instructions Recorded Confirmed Gabapentin [Neurontin] 600 mg PO BID 02/12/18 11/30/19 HYDROcodone/APAP 7.5-325MG [[place] 1 tab PO Q6H PRN 02/12/18 11/30/19 7.5-325] busPIRone HCL 15 mg PO BID 02/12/18 11/30/19 tiZANidine [Zanaflex] 4 mg PO BID 02/12/18 11/30/19 traZODone HCL 150 mg PO HS 02/12/18 11/30/19 ARIPiprazole [Abilify] 2 mg PO HS 11/30/19 11/30/19 Butalbital/Aspirin/Caffeine 1 tab PO Q8H PRN 11/30/19 11/30/19 [Fvqorx-Efabcin-Lawsizll 50-325-40 mg] Cyanocobalamin [Vitamin B-12 1,000 mcg IM Q60D 11/30/19 11/30/19 Injection] Desvenlafaxine Succinate [Pristiq 50 mg PO HS 11/30/19 11/30/19 ER] Desvenlafaxine [Pristiq ER] 100 mg PO HS 11/30/19 11/30/19 Fluticasone Nasal [place] [Flonase 2 spr EA NOSTRIL DAILY 11/30/19 11/30/19 Nasal [place]] Primidone [Mysoline] 50 mg PO HS 11/30/19 11/30/19 Previous Rx's Medication Instructions Recorded Albuterol Inhaler [Ventolin Hfa 1 - 2 puff INHALATION RT-Q4H PRN 12/02/19 Inhaler] #1 puff Beclomethasone Dip 80 Mcg/Puff 1 puff INHALATION RT-BID #1 puff 12/02/19 [Qvar 80 mcg] Ipratropium-Albuterol Nebulize 3 ml INHALATION QID #120 neb 12/02/19 [Duoneb 0.5 mg-3 mg/3 ml Soln] Nicotine 21Mg/24Hr Patch [Habitrol] 1 patch TRANSDERM DAILY #14 patch 12/02/19 Salmeterol Xinafoate [Serevent 1 puff INHALATION RT-BID #1 device 12/02/19 Diskus] predniSONE 10 mg PO DAILY #30 tab 12/02/19 Allergies Allergy/AdvReac Type Severity Reaction Status Date / Time amitriptyline [From Elavil] Allergy Unknown Verified 11/30/19 10:11 pregabalin [From Lyrica] Allergy Unknown Verified 11/30/19 10:11 Review of Systems ROS Statement: Those systems with pertinent positive or pertinent negative responses have been documented in the HPI. ROS Other: All systems not noted in ROS Statement are negative. Past Medical History Past Medical History: Asthma, COPD Additional Past Medical History / Comment(s): anxiety, neuropathy rt side, back and neck pain History of Any Multi-Drug Resistant Organisms: None Reported Past Surgical History: Adenoidectomy, Cholecystectomy, Hysterectomy, Tonsillectomy Additional Past Surgical History / Comment(s): ablation to back Past Psychological History: No Psychological Hx Reported Smoking Status: Current every day smoker Past Alcohol Use History: Rare Past Drug Use History: None Reported - Past Family History Mother Family Medical History: No Reported History General Exam Limitations: physical limitation General appearance: alert, in distress Head exam: Present: atraumatic, normocephalic, normal inspection Eye exam: Present: normal appearance, PERRL, EOMI. Absent: scleral icterus, conjunctival injection, periorbital swelling ENT exam: Present: normal exam, mucous membranes moist Neck exam: Present: normal inspection. Absent: tenderness, meningismus, lymphadenopathy Respiratory exam: Present: respiratory distress, wheezes, accessory muscle use. Absent: rales, rhonchi, stridor Cardiovascular Exam: Present: normal rhythm, tachycardia, normal heart sounds. Absent: systolic murmur, diastolic murmur, rubs, gallop, clicks GI/Abdominal exam: Present: soft, normal bowel sounds. Absent: distended, tenderness, guarding, rebound, rigid Extremities exam: Present: normal inspection, full ROM, normal capillary refill. Absent: tenderness, pedal edema, joint swelling, calf tenderness Back exam: Present: normal inspection Neurological exam: Present: alert, oriented X3, CN II-XII intact Psychiatric exam: Present: normal affect, normal mood Skin exam: Present: warm, dry, intact, normal color. Absent: rash Course Vital Signs 11/29/19 11/29/19 11/29/19 21:00 21:05 21:24 Temperature 98.7 F Pulse Rate 106 H 102 H Respiratory 24 26 H Rate Blood Pressure 123/86 O2 Sat by Pulse 86 L 97 Oximetry 11/29/19 11/29/19 11/29/19 21:31 21:44 21:53 Temperature Pulse Rate 108 H 111 H 110 H Respiratory 29 H Rate Blood Pressure 126/90 O2 Sat by Pulse 99 Oximetry 11/29/19 11/29/19 11/29/19 22:04 22:26 23:15 Temperature 98.5 F Pulse Rate 110 H 108 H 107 H Respiratory 25 H 16 Rate Blood Pressure 122/76 118/88 O2 Sat by Pulse 94 L 98 Oximetry 11/29/19 11/29/19 23:42 23:54 Temperature Pulse Rate 107 H 111 H Respiratory Rate Blood Pressure O2 Sat by Pulse Oximetry Medical Decision Making - Medical Decision Making Upon arrival the patient was placed into room 5. She is placed on supplemental oxygen. The patient has extremely diminished breath sounds bilaterally. Because of this respiratory is called. They do give the patient 1 DuoNeb breathing treatment followed by 3 albuterol breathing treatments. Peripheral IV was established and the patient was given 1 g of magnesium and 125 mg of Solu- Medrol. Laboratory studies were conducted. Patient's white blood cell count is elevated at 18,000. Sodium mildly low at 131. Influenza A and B are not detected. Chest x-ray demonstrates signs of COPD however no acute lung disease. I reevaluated the patient. She is resting much more comfortably in bed. I did recommend hospital admission for breathing treatments, steroids and pulmonology evaluation. I will also place her on antibiotics as she still currently smokes and I am concerned for tracheobronchitis. The patient did agree to this. She was admitted to Dr. Acosta and was transported to floor in stable condition - Lab Data Result diagrams: 11/30/19 06:56 11/30/19 16:04 Lab Results 11/29/19 11/29/19 11/29/19 Range/Units 21:15 21:15 21:15 WBC 18.0 H (3.8-10.6) k/uL RBC 4.55 (3.80-5.40) m/uL Hgb 14.7 (11.4-16.0) gm/dL Hct 44.6 (34.0-46.0) % MCV 98.0 (80.0-100.0) fL MCH 32.3 (25.0-35.0) pg MCHC 32.9 (31.0-37.0) g/dL RDW 13.0 (11.5-15.5) % Plt Count 279 (150-450) k/uL Neutrophils % 81 % Lymphocytes % 12 % Monocytes % 6 % Eosinophils % 1 % Basophils % 0 % Neutrophils # 14.6 H (1.3-7.7) k/uL Lymphocytes # 2.1 (1.0-4.8) k/uL Monocytes # 1.0 (0-1.0) k/uL Eosinophils # 0.1 (0-0.7) k/uL Basophils # 0.0 (0-0.2) k/uL PT (9.0-12.0) sec INR (<1.2) APTT (22.0-30.0) sec Sodium 131 L (137-145) mmol/L Potassium 4.3 (3.5-5.1) mmol/L Chloride 96 L (98-107) mmol/L Carbon Dioxide 29 (22-30) mmol/L Anion Gap 6 mmol/L BUN 11 (7-17) mg/dL Creatinine 0.79 (0.52-1.04) mg/dL Est GFR (CKD-EPI)AfAm >90 (>60 ml/min/1.73 sqM) Est GFR (CKD-EPI)NonAf 89 (>60 ml/min/1.73 sqM) Glucose 79 (74-99) mg/dL Plasma Lactic Acid Juan 1.0 (0.7-2.0) mmol/L Calcium 9.4 (8.4-10.2) mg/dL Total Bilirubin 0.4 (0.2-1.3) mg/dL AST 22 (14-36) U/L ALT 15 (4-34) U/L Alkaline Phosphatase 105 (38-126) U/L Troponin I (0.000-0.034) ng/mL Total Protein 7.0 (6.3-8.2) g/dL Albumin 4.1 (3.5-5.0) g/dL Influenza Type A RNA (Not Detectd) Influenza Type B (PCR) (Not Detectd) 11/29/19 11/29/19 11/29/19 Range/Units 21:15 21:15 21:41 WBC (3.8-10.6) k/uL RBC (3.80-5.40) m/uL Hgb (11.4-16.0) gm/dL Hct (34.0-46.0) % MCV (80.0-100.0) fL MCH (25.0-35.0) pg MCHC (31.0-37.0) g/dL RDW (11.5-15.5) % Plt Count (150-450) k/uL Neutrophils % % Lymphocytes % % Monocytes % % Eosinophils % % Basophils % % Neutrophils # (1.3-7.7) k/uL Lymphocytes # (1.0-4.8) k/uL Monocytes # (0-1.0) k/uL Eosinophils # (0-0.7) k/uL Basophils # (0-0.2) k/uL PT 9.3 (9.0-12.0) sec INR 0.9 (<1.2) APTT 24.1 (22.0-30.0) sec Sodium (137-145) mmol/L Potassium (3.5-5.1) mmol/L Chloride (98-107) mmol/L Carbon Dioxide (22-30) mmol/L Anion Gap mmol/L BUN (7-17) mg/dL Creatinine (0.52-1.04) mg/dL Est GFR (CKD-EPI)AfAm (>60 ml/min/1.73 sqM) Est GFR (CKD-EPI)NonAf (>60 ml/min/1.73 sqM) Glucose (74-99) mg/dL Plasma Lactic Acid Juan (0.7-2.0) mmol/L Calcium (8.4-10.2) mg/dL Total Bilirubin (0.2-1.3) mg/dL AST (14-36) U/L ALT (4-34) U/L Alkaline Phosphatase (38-126) U/L Troponin I <0.012 (0.000-0.034) ng/mL Total Protein (6.3-8.2) g/dL Albumin (3.5-5.0) g/dL Influenza Type A RNA Not Detected (Not Detectd) Influenza Type B (PCR) Not Detected (Not Detectd) - EKG Data EKG Comments: EKG demonstrates a sinus tachycardia with a ventricular rate of 101. [place] interval 122. QRS knee. QTC of 446. No acute ST segment elevations or depressions concerning for ischemic changes. Disposition Clinical Impression: COPD exacerbation, Hypoxia, Leukocytosis Disposition: ADMITTED IP TO THIS HOSP Condition: Stable Is patient prescribed a controlled substance at d/c from ED?: No Decision to Admit Reason: Admit from EC Decision Date: 11/29/19 Decision Time: 23:00
[2019-11-29] MEDS: traZODone HCL 100 MG TAB PO SCH (23:14)
[2019-11-29] MEDS ORDERED: AZITHROMYCIN 500 MG in SODIUM CHLORIDE 0.9% 250 ML IVPB ONE (23:30)
[2019-11-29] MEDS: IPRATROPIUM-ALBUTEROL 3 ML NEB INHALATION SCH (23:42)
[2019-11-30] MEDS: methylPREDNISolone SOD SUCCI 40 MG/ML 1 ML VIAL IV SCH ×3 (00:35→17:27)
[2019-11-30] MEDS: SODIUM CHLORIDE 0.9% 1,000 ML IV SCH ×2 (00:35→07:38)
[2019-11-30] MEDS: guaiFENesin-Coden 100-10MG/5ML 10 ML CUP PO PRN ×4 (01:34→23:37)
[2019-11-30] MEDS: hydrOXYzine HCL 25 MG TAB PO SCH ×3 (01:35→20:21)
[2019-11-30] MEDS: GABAPENTIN 300 MG CAP PO SCH ×3 (01:35→20:22)
[2019-11-30] MEDS: busPIRone HCl 5 MG TAB PO SCH ×3 (01:36→20:22)
[2019-11-30] MEDS: PRIMIDONE 50 MG TAB PO SCH ×2 (01:36→20:23)
[2019-11-30] MEDS: tiZANidine 4 MG TAB PO SCH ×3 (01:36→20:23)
[2019-11-30] MEDS: ARIPiprazole 2 MG TAB PO SCH ×2 (01:36→20:23)
[2019-11-30] MEDS: IPRATROPIUM-ALBUTEROL 3 ML NEB INHALATION SCH ×5 (04:11→21:08)
[2019-11-30 07:17] LABS: Basophils % (A) 0 %; Eosinophils # (A) 0.1 k/uL (0-0.7); Eosinophils % (A) 1 %; HCT 42.3 % (34.0-46.0); HGB 13.2 gm/dL (11.4-16.0); Lymphocytes # (A) 0.6 k/uL (1.0-4.8); Lymphocytes % (A) 4 %; MCH 31.2 pg (25.0-35.0); MCHC 31.1 g/dL (31.0-37.0); MCV 100.1 fL (80.0-100.0); Mean Platelet Volume 7.8; Monocytes # (A) 0.3 k/uL (0-1.0); Monocytes % (A) 2 %; Neutrophils # (A) 12.1 k/uL (1.3-7.7); Neutrophils % (A) 92 %; Platelet Count 263 k/uL (150-450); RBC 4.23 m/uL (3.80-5.40); RDW 12.9 % (11.5-15.5); WBC 13.2 k/uL (3.8-10.6)
[2019-11-30 07:25] LABS: Glucose,Whole Blood 148 mg/dL (75-99)
[2019-11-30 07:28] LABS: African American GFR (CKD) >90 (>60 ml/min/1.73 sqM); Anion Gap 3 mmol/L; Blood Urea Nitrogen 12 mg/dL (7-17); Carbon Dioxide 26 mmol/L (22-30); Chloride 109 mmol/L (98-107); Glucose 172 mg/dL (74-99); Non-African American GFR(CKD) 89 (>60 ml/min/1.73 sqM); Potassium 5.9 mmol/L (3.5-5.1); Sodium 138 mmol/L (137-145)
[2019-11-30] MEDS: INSULIN ASPART (NovoLOG) 100 UNIT/ML VIAL SQ SCH ×4 (07:36→22:51)
[2019-11-30] MEDS ORDERED: HYDROcodone/APAP 7.5-325MG 1 EACH TAB PO SCH (09:00)
[2019-11-30] MEDS: HYDROcodone/APAP 7.5-325MG 1 EACH TAB PO PRN ×3 (09:02→20:24)
[2019-11-30] MEDS: NICOTINE 21MG/24HR PATCH TRANSDERM SCH (11:18)
[2019-11-30] MEDS: ENOXAPARIN 40 MG/0.4 ML SYRINGE SQ SCH (11:18)
[2019-11-30 11:35] LABS: Glucose,Whole Blood 131 mg/dL (75-99)
[2019-11-30 11:52] VITALS: BMI 18.0
--- NOTE | 2019-11-30 15:57 | P.HPIM ---
History of Present Illness H&P Date: 11/30/19 Chief Complaint: Short of breath History of presenting complaint: This is a pleasant [address] Palomares. Chronic stable medical conditions include anxiety some neuropathy, back and neck pain. Patient long- standing smoker. For 2 days patient became increasingly short of breath cough congested wheezing. Chest tightness. Symptoms began getting worse decided to c ome in. Patient smokes close to a pack a day sometimes more. Denies ANY fever and chills Review of systems: GEN.: Tired EYES: None HEENT: None NECK: None RESPIRATORY: As above CARDIOVASCULAR: None GASTROINTESTINAL: None GENITOURINARY: None MUSCULOSKELETAL: Neck and back pain, chronic LYMPHATICS: None HEMATOLOGICAL: None PSYCHIATRY: None NEUROLOGICAL: Some neuropathy Past medical history to include: COPD, anxiety, neuropathy the right side, back and neck pain, smoker Social history: Lives with fijelena, smoking average of more than pack a day for close to 39 years alcohol rarely Family history: Reviewed, noncontributory to presentation Physical examination: VITAL SIGNS: 98.7, 106, 26, 123/86, 86% on room air GENERAL: BMI 18, sitting up short of breath. EYES: Pupils equal. Conjunctiva normal. HEENT: External appearance of nose and ears normal, oral cavity grossly normal. NECK: JVD not raised; masses not palpable. HEART: First and second heart sounds are normal; no edema. LUNGS: Respiratory rate increased, decreased breath sounds prolonged expiration, ecstasy muscles are working, not able to speak in full sentences. ABDOMEN: Soft, nontender, liver spleen not palpable, no masses palpable. PSYCH: Alert and oriented x3; mood and affect anxiousl. NEUROLOGICAL: Cranial nerves grossly intact; no facial asymmetry, power and sensation grossly intact. LYMPHATICS: No lymph nodes palpable in the axilla and neck INVESTIGATIONS, reviewed in the clinical context: White count 18 hemoglobin 14.7 potassium 4.3 bun 11 creatinine 0.7 9 repeat potassium 5.9 Influenza A and B both negative EKG tracing personally reviewed by me-sinus tachycardia Chest x-ray film personally reviewed by me-hyperinflation, prominent pulmonary artery, prominent interstitium Assessment: -Acute severe COPD exacerbation in a current smoker -Acute tracheobronchitis versus viral pneumonitis -Chronic nicotine dependence patient's cigarette smoker -Anxiety not otherwise specified -Hyperglycemia secondary to steroids numbers are 172, 148, 131 -Hyperkalemia will check if it is a lab error. Plan: Patient be started on nebulized bronchodilators every 4 hours, IV steroids, inhaled steroids. Also add Perforomist. Lovenox for DVT prophylaxis. Also add Omnicef. Smoke cessation counseling: This was done with the patient. Nicotine patch is being given. More than 3 minutes was spent for this Past Medical History Past Medical History: Asthma, COPD Additional Past Medical History / Comment(s): anxiety, neuropathy rt side, back and neck pain History of Any Multi-Drug Resistant Organisms: None Reported Past Surgical History: Adenoidectomy, Cholecystectomy, Hysterectomy, Tonsillectomy Additional Past Surgical History / Comment(s): ablation to back Past Psychological History: No Psychological Hx Reported Smoking Status: Current every day smoker Past Alcohol Use History: Rare Past Drug Use History: None Reported - Past Family History Mother Family Medical History: No Reported History Medications and Allergies Home Medications Medication Instructions Recorded Confirmed Type Ipratropium/Albuterol Sulfate 1 puff INHALATION RT-BID 03/16/14 11/30/19 History [Combivent Respimat Inhaler] Gabapentin [Neurontin] 600 mg PO BID 02/12/18 11/30/19 History HYDROcodone/APAP 7.5-325MG [[place] 1 tab PO Q6H PRN 02/12/18 11/30/19 History 7.5-325] busPIRone HCL 15 mg PO BID 02/12/18 11/30/19 History hydrOXYzine HCL [Atarax] 50 mg PO Q8H PRN 02/12/18 11/30/19 History tiZANidine [Zanaflex] 4 mg PO BID 02/12/18 11/30/19 History traZODone HCL 150 mg PO HS 02/12/18 11/30/19 History guaiFENesin-Coden 100-10MG/5ML 10 ml PO Q6H PRN 3 Days #120 ml 10/26/19 11/30/19 Rx [Robitussin AC] ARIPiprazole [Abilify] 2 mg PO HS 11/30/19 11/30/19 History Albuterol Inhaler [Ventolin Hfa 1 - 2 puff INHALATION RT-Q4H PRN 11/30/19 11/30/19 History Inhaler] Beclomethasone Dip 80 Mcg/Puff 1 puff INHALATION RT-BID 11/30/19 11/30/19 History [Qvar 80 mcg] Butalbital/Aspirin/Caffeine 1 tab PO Q8H PRN 11/30/19 11/30/19 History [Kerbpp-Ehvakzv-Duepxqut 50-325-40 mg] Cyanocobalamin [Vitamin B-12 1,000 mcg IM Q60D 11/30/19 11/30/19 History Injection] Desvenlafaxine Succinate [Pristiq 50 mg PO HS 11/30/19 11/30/19 History ER] Desvenlafaxine [Pristiq ER] 100 mg PO HS 11/30/19 11/30/19 History Fluticasone Nasal [place] [Flonase 2 spr EA NOSTRIL DAILY 11/30/19 11/30/19 History Nasal [place]] Ipratropium-Albuterol Nebulize 3 ml INHALATION RT-Q4H 11/30/19 11/30/19 History [Duoneb 0.5 mg-3 mg/3 ml Soln] Meclizine [Antivert] 25 mg PO BID 11/30/19 11/30/19 History Primidone [Mysoline] 50 mg PO HS 11/30/19 11/30/19 History Salmeterol Xinafoate [Serevent 1 puff INHALATION RT-BID 11/30/19 11/30/19 History Diskus] Allergies Allergy/AdvReac Type Severity Reaction Status Date / Time amitriptyline [From Elavil] Allergy Unknown Verified 11/30/19 10:11 pregabalin [From Lyrica] Allergy Unknown Verified 11/30/19 10:11 Physical Exam Vitals: Vital Signs Temp Pulse Pulse Resp BP BP Pulse Ox 11/30/19 08:24 92 11/30/19 08:11 86 94 L 11/30/19 07:12 18 11/30/19 07:00 98.1 F 87 18 102/70 98 11/30/19 04:22 104 H 11/30/19 04:11 104 H 11/30/19 04:00 18 11/30/19 02:01 107 H 20 11/30/19 00:47 97.7 F 109 H 16 116/82 94 L 11/29/19 23:54 111 H 11/29/19 23:42 107 H 11/29/19 23:15 98.5 F 107 H 16 118/88 98 11/29/19 22:26 108 H 25 H 122/76 94 L 11/29/19 22:04 110 H 11/29/19 21:53 110 H 11/29/19 21:44 111 H 11/29/19 21:31 108 H 29 H 126/90 99 11/29/19 21:24 102 H 11/29/19 21:05 98.7 F 106 H 26 H 123/86 97 11/29/19 21:00 24 86 L Intake and Output 11/29/19 11/30/19 11/30/19 22:59 06:59 14:59 Intake Total 2320 Balance 2320 Intake: Intake, IV Titration 2200 Amount Sodium Chloride 0.9% 1, 1200 000 ml @ 100 mls/hr IV . Q10H [facility] Rx#:[id number] Sodium Chloride 0.9% 1, 1000 000 ml @ 999 mls/hr IV . Q1H1M ONE Rx#:[id number] Oral 120 Other: Voiding Method Toilet Toilet # Voids 2 Weight 47.627 kg 47.627 kg Results CBC & Chem 7: 11/30/19 06:56 11/30/19 06:56 Labs: Abnormal Lab Results - Last 24 Hours (Table) 11/29/19 11/29/19 11/30/19 Range/Units 21:15 21:15 06:56 WBC 18.0 H 13.2 H (3.8-10.6) k/uL MCV 100.1 H (80.0-100.0) fL Neutrophils # 14.6 H 12.1 H (1.3-7.7) k/uL Lymphocytes # 0.6 L (1.0-4.8) k/uL Sodium 131 L (137-145) mmol/L Potassium (3.5-5.1) mmol/L Chloride 96 L (98-107) mmol/L Glucose (74-99) mg/dL POC Glucose (mg/dL) (75-99) mg/dL 11/30/19 11/30/19 Range/Units 06:56 07:13 WBC (3.8-10.6) k/uL MCV (80.0-100.0) fL Neutrophils # (1.3-7.7) k/uL Lymphocytes # (1.0-4.8) k/uL Sodium (137-145) mmol/L Potassium 5.9 H (3.5-5.1) mmol/L Chloride 109 H (98-107) mmol/L Glucose 172 H (74-99) mg/dL POC Glucose (mg/dL) 148 H (75-99) mg/dL Thrombosis Risk Factor Assmnt - Choose All That Apply Each Factor Represents 1 point: Age 41-60 years Thrombosis Risk Factor Assessment Total Risk Factor Score: 1 Thrombosis Risk Factor Assessment Level: Low Risk
[2019-11-30 16:31] LABS: African American GFR (CKD) >90 (>60 ml/min/1.73 sqM); Anion Gap 2 mmol/L; Blood Urea Nitrogen 16 mg/dL (7-17); Carbon Dioxide 29 mmol/L (22-30); Chloride 105 mmol/L (98-107); Glucose 128 mg/dL (74-99); Non-African American GFR(CKD) 86 (>60 ml/min/1.73 sqM); Potassium 4.8 mmol/L (3.5-5.1); Sodium 136 mmol/L (137-145)
[2019-11-30] MEDS: FORMOTEROL FUMARATE 20 MCG/2 ML NEBU INHALATION SCH ×2 (16:40→21:07)
[2019-11-30] MEDS: BUDESONIDE 1 MG/2 ML NEBU INHALATION SCH ×2 (16:40→21:07)
[2019-11-30 17:15] LABS: Glucose,Whole Blood 131 mg/dL (75-99)
[2019-11-30] MEDS: traZODone HCL 100 MG TAB PO SCH (20:22)
[2019-11-30 22:30] LABS: Glucose,Whole Blood 147 mg/dL (75-99)
[2019-11-30] MEDS ORDERED: traZODone HCL 50 MG TAB PO ONE (23:30)
[2019-12-01] MEDS: IPRATROPIUM-ALBUTEROL 3 ML NEB INHALATION SCH ×7 (00:27→23:20)
[2019-12-01] MEDS: methylPREDNISolone SOD SUCCI 40 MG/ML 1 ML VIAL IV SCH ×4 (00:41→23:12)
[2019-12-01] MEDS: HYDROcodone/APAP 7.5-325MG 1 EACH TAB PO PRN ×4 (02:43→23:11)
[2019-12-01] MEDS: guaiFENesin-Coden 100-10MG/5ML 10 ML CUP PO PRN ×3 (05:44→19:22)
[2019-12-01 06:52] LABS: Glucose,Whole Blood 148 mg/dL (75-99)
[2019-12-01] MEDS: NICOTINE 21MG/24HR PATCH TRANSDERM SCH (07:26)
[2019-12-01] MEDS: ENOXAPARIN 40 MG/0.4 ML SYRINGE SQ SCH (07:26)
[2019-12-01] MEDS: busPIRone HCl 5 MG TAB PO SCH ×2 (07:27→20:42)
[2019-12-01] MEDS: GABAPENTIN 300 MG CAP PO SCH ×2 (07:27→20:41)
[2019-12-01] MEDS: INSULIN ASPART (NovoLOG) 100 UNIT/ML VIAL SQ SCH ×4 (07:27→21:07)
[2019-12-01] MEDS: hydrOXYzine HCL 25 MG TAB PO SCH ×2 (07:28→20:42)
[2019-12-01] MEDS: tiZANidine 4 MG TAB PO SCH ×2 (07:28→20:41)
[2019-12-01] MEDS: FORMOTEROL FUMARATE 20 MCG/2 ML NEBU INHALATION SCH ×2 (08:28→19:40)
[2019-12-01] MEDS: BUDESONIDE 1 MG/2 ML NEBU INHALATION SCH ×2 (08:29→19:40)
[2019-12-01 12:03] LABS: Glucose,Whole Blood 136 mg/dL (75-99)
[2019-12-01] MEDS ORDERED: POLYETHYLENE GLYCOL 3350 17 GM POWD.PACK PO PRN (15:45)
[2019-12-01 16:50] LABS: Glucose,Whole Blood 123 mg/dL (75-99)
[2019-12-01] MEDS: PRIMIDONE 50 MG TAB PO SCH (20:41)
[2019-12-01] MEDS: ARIPiprazole 2 MG TAB PO SCH (20:42)
[2019-12-01] MEDS ORDERED: traZODone HCL 100 MG TAB PO SCH (21:00)
[2019-12-01 21:05] LABS: Glucose,Whole Blood 116 mg/dL (75-99)
--- NOTE | 2019-12-01 22:04 | P.PN ---
Progress Note - Text Progress Note Date: 12/01/19 Chief Complaint: Short of breath History of presenting complaint: This is a pleasant [address] Palomares. Chronic stable medical conditions include anxiety some neuropathy, back and neck pain. Patient long- standing smoker. For 2 days patient became increasingly short of breath cough congested wheezing. Chest tightness. Symptoms began getting worse decided to come in. Patient smokes close to a pack a day sometimes more. Denies ANY fever and chills Admitted with severe COPD exacerbation, acute tracheobronchitis and viral pneumonitis. Today-short of breath remains wheezing. Mild improvement. Did tolerate some diet. Sitting up. Cough. Minimum sputum. Review of systems: Was done for constitutional, cardiovascular, GI, pulmonary. relevant finding as above Active Medications Hydrocodone Bitart/Acetaminophen ([place] 7.5-325) 1 each PO Q6H PRN PRN Reason: Pain Last Admin: 12/01/19 16:31 Dose: 1 each Documented by: Albuterol/Ipratropium (Duoneb 0.5 Mg-3 Mg/3 Ml Soln) 3 ml INHALATION RT-Q4H [facility] Last Admin: 12/01/19 19:40 Dose: 3 ml Documented by: Aripiprazole (Abilify) 2 mg PO HS [facility] Last Admin: 12/01/19 20:42 Dose: 2 mg Documented by: Budesonide (Pulmicort) 1 mg INHALATION RT-BID [facility] Last Admin: 12/01/19 19:40 Dose: 1 mg Documented by: Buspirone HCl (Buspar) 15 mg PO BID [facility] Last Admin: 12/01/19 20:42 Dose: 15 mg Documented by: Enoxaparin Sodium (Lovenox) 40 mg SQ DAILY [facility] Last Admin: 12/01/19 07:26 Dose: 40 mg Documented by: Formoterol Fumarate (Perforomist) 20 mcg INHALATION RT-BID [facility] Last Admin: 12/01/19 19:40 Dose: 20 mcg Documented by: Gabapentin (Neurontin) 600 mg PO BID [facility] Last Admin: 12/01/19 20:41 Dose: 600 mg Documented by: Guaifenesin/Codeine Phosphate (Robitussin Ac) 10 ml PO Q6H PRN PRN Reason: Cough Last Admin: 12/01/19 19:22 Dose: 10 ml Documented by: Hydroxyzine HCl (Atarax) 50 mg PO BID [facility] Last Admin: 12/01/19 20:42 Dose: 50 mg Documented by: Insulin Aspart (Novolog) 0 unit SQ [facility]; Protocol Last Admin: 12/01/19 21:07 Dose: Not Given Documented by: Methylprednisolone Sodium Succinate (Solu-Medrol) 40 mg IV Q8HR [facility] Last Admin: 12/01/19 16:30 Dose: 40 mg Documented by: Naloxone HCl (Narcan) 0.2 mg IV Q2M PRN PRN Reason: Opioid Reversal Nicotine (Habitrol 21mg/24hr Patch) 1 patch TRANSDERM DAILY [facility] Last Admin: 12/01/19 07:26 Dose: 1 patch Documented by: Polyethylene Glycol (Miralax) 17 gm PO DAILY PRN PRN Reason: Constipation Last Admin: 12/01/19 16:30 Dose: 17 gm Documented by: Primidone (Mysoline) 50 mg PO [facility] Last Admin: 12/01/19 20:41 Dose: 50 mg Documented by: Tizanidine HCl (Zanaflex) 4 mg PO [facility] Last Admin: 12/01/19 20:41 Dose: 4 mg Documented by: Tizanidine HCl (Zanaflex) 4 mg PO -BRKT [facility] Last Admin: 12/01/19 07:28 Dose: 4 mg Documented by: Trazodone HCl (Desyrel) 150 mg PO [facility] Last Admin: 12/01/19 20:40 Dose: 150 mg Documented by: Physical examination: VITAL SIGNS: 98.1, 101, 18, 135/85, 93% on room air GENERAL: Propped up in bed, short of breath. EYES: Pupils equal. Conjunctiva normal. HEENT: External appearance of nose and ears normal, oral cavity grossly normal. NECK: JVD not raised; masses not palpable. HEART: First and second heart sounds are normal; no edema. LUNGS: Respiratory rate increased, decreased breath sounds prolonged expiration, ABDOMEN: Soft, nontender, liver spleen not palpable, no masses palpable. PSYCH: Alert and oriented x3; mood and affect anxiousl. INVESTIGATIONS, reviewed in the clinical context: Accu-Cheks noted Prior testing White count 18 hemoglobin 14.7 potassium 4.3 bun 11 creatinine 0.7 9 repeat potassium 5.9 Influenza A and B both negative EKG tracing personally reviewed by me-sinus tachycardia Chest x-ray film personally reviewed by me-hyperinflation, prominent pulmonary artery, prominent interstitium Assessment: -Acute severe COPD exacerbation in a current smoker, slow to respond -Acute tracheobronchitis versus viral pneumonitis -Chronic nicotine dependence patient's cigarette smoker -Anxiety not otherwise specified -Hyperglycemia secondary to steroids numbers are 172, 148, 131 Plan: Continue with nebulized bronchodilators every 4 hours, IV steroids, inhaled ster oids. Perforomist. Omnicef. Encouraged to sit up in a chair. Walking Smoke cessation counseling: This was done with the patient. Nicotine patch is being given. More than 3 minutes was spent for this
[2019-12-01] MEDS: guaiFENesin 600 MG TABLET.ER PO SCH (23:11)
[2019-12-02] MEDS: IPRATROPIUM-ALBUTEROL 3 ML NEB INHALATION SCH ×3 (03:29→11:43)
[2019-12-02] MEDS: HYDROcodone/APAP 7.5-325MG 1 EACH TAB PO PRN ×2 (05:22→12:46)
[2019-12-02 06:47] LABS: Glucose,Whole Blood 143 mg/dL (75-99)
[2019-12-02 07:24] VITALS: BP 113/73; RESP 16; TEMP 98.3
[2019-12-02] MEDS: busPIRone HCl 5 MG TAB PO SCH (07:53)
[2019-12-02] MEDS: ENOXAPARIN 40 MG/0.4 ML SYRINGE SQ SCH (07:53)
[2019-12-02] MEDS: guaiFENesin 600 MG TABLET.ER PO SCH (07:54)
[2019-12-02] MEDS: hydrOXYzine HCL 25 MG TAB PO SCH (07:54)
[2019-12-02] MEDS: GABAPENTIN 300 MG CAP PO SCH (07:54)
[2019-12-02] MEDS: tiZANidine 4 MG TAB PO SCH (07:54)
[2019-12-02] MEDS: INSULIN ASPART (NovoLOG) 100 UNIT/ML VIAL SQ SCH ×2 (07:55→12:41)
[2019-12-02] MEDS: methylPREDNISolone SOD SUCCI 40 MG/ML 1 ML VIAL IV SCH (07:55)
[2019-12-02] MEDS: NICOTINE 21MG/24HR PATCH TRANSDERM SCH (07:55)
[2019-12-02] MEDS: FORMOTEROL FUMARATE 20 MCG/2 ML NEBU INHALATION SCH (07:59)
[2019-12-02] MEDS: BUDESONIDE 1 MG/2 ML NEBU INHALATION SCH (07:59)
--- NOTE | 2019-12-02 10:27 | CDI ---
Documentation Clarification Form Date: 12/02/2019 09:59:46 AM From: Alis Lundberg RN CCDS Admit Date: 11/29/2019 11:00:00 PM Patient Name: Tamiko Lui Visit Number: [id number] Discharge Date: ATTENTION: The Clinical Documentation Specialists (CDI) and [facility] Coding Staff appreciate your assistance in clarifying documentation. Please respond to the clarification below the line at the bottom and electronically sign. The CDI & [facility] Coding staff will review the response and follow-up if needed. Please note: Queries are made part of the Legal Health Record. If you have any questions, please contact the author of this message via ITS. Dr. Reagan Acosta The patient presented with shortness of breath. History/Risk Factors: 49-year-old female with tachycardia, oxygen saturation of 86% and chest wall discomfort from coughing. Medical history of Asthma and COPD. From ED Note 11/29 Home Oxygen: Patient denies. Tobacco use: Cigarettes current every day. Clinical Indicators: 10/29 2100 Oxygen Saturation 86% room air 24 RR 11/295 123/86 106 98.7 26 97% 3L nasal cannula ED Note She arrives to triage tachycardic with an oxygen saturation of 86% Vital signs: Lung/Breathing assessment: 11/30 H&P For 2 days patient became increasingly short of breath cough congested wheezing. Tightness. Treatment: Breathing tx 11/29 Duoneb Q 4 hrs [place]; Solumedrol IV Q 8hrs; 11/30 Pulmicort Bid; Perforomist BID [place]; 11/29 Oxygen 3L nasal cannula; 12/02 Room Air In your professional opinion, can you please clarify if these findings signify one of the following conditions? Acute Respiratory Failure Acute Respiratory Distress Acute Respiratory Insufficiency Other Diagnosis, please specify Unable to determine Specificity: If known, further specify (if known): With hypercapnia? (pCO2 >50 and pH <7.35) With hypoxia? (pO2 <60 mm Hg or SpO2 <91% on room air) (Last Query Form Revision: June 2019) acute hypoxic respiratory failure, POA MTDD
[2019-12-02 11:28] LABS: Glucose,Whole Blood 116 mg/dL (75-99)
[2019-12-02 11:55] VITALS: PULSE 104
[2019-12-02] MEDS ORDERED: predniSONE 20 MG TAB PO STA (13:31)
--- NOTE | 2019-12-02 23:08 | P.DS ---
Providers Date of admission: 11/29/19 23:00 Expected date of discharge: 12/02/19 Attending physician: Reagan Acosta Primary care physician: Isael Palomares [facility] Course: Chief Complaint: Short of breath History of presenting complaint: This is a pleasant [address] Palomares. Chronic stable medical conditions include anxiety some neuropathy, back and neck pain. Patient long- standing smoker. For 2 days patient became increasingly short of breath cough congested wheezing. Chest tightness. Symptoms began getting worse decided to come in. Patient smokes close to a pack a day sometimes more. Denies ANY fever and chills Admitted with severe COPD exacerbation, acute tracheobronchitis and viral pneumonitis.responded well to nebulized bronchodilators, steroids. Today-breathing much improved. Up in the hallway. Tolerating a diet. Counseled about smoking again. Medications were discussed. Discussion and discharge planning more than 35 minutes Physical examination: VITAL SIGNS: 98.3, 98, 16, 1130 73, 96% room air GENERAL: sitting up, comfortable EYES: Pupils equal. Conjunctiva normal. HEENT: External appearance of nose and ears normal, oral cavity grossly normal. NECK: JVD not raised; masses not palpable. HEART: First and second heart sounds are normal; no edema. LUNGS: Respiratory rate inormal, decreased breath sounds ABDOMEN: Soft, nontender, liver spleen not palpable, no masses palpable. PSYCH: Alert and oriented x3; mood and affect anxiousl. INVESTIGATIONS, reviewed in the clinical context: Accu-Cheks noted Prior testing White count 18 hemoglobin 14.7 potassium 4.3 bun 11 creatinine 0.7 9 repeat potassium 5.9 Influenza A and B both negative EKG tracing personally reviewed by me-sinus tachycardia Chest x-ray film personally reviewed by me-hyperinflation, prominent pulmonary artery, prominent interstitium Assessment: -Acute severe COPD exacerbation in a current smoker, -Acute tracheobronchitis versus viral pneumonitis -Chronic nicotine dependence patient's cigarette smoker -Anxiety not otherwise specified -Hyperglycemia secondary to steroids numbers are 172, 148, 131 disposition: Home Patient Condition at Discharge: Stable Plan - Discharge Summary Discharge Rx Participant: No New Discharge Prescriptions: New Nicotine 21Mg/24Hr Patch [Habitrol] 1 patch TRANSDERM DAILY #14 patch predniSONE 10 mg PO DAILY #30 tab Continue HYDROcodone/APAP 7.5-325MG [[place] 7.5-325] 1 tab PO Q6H PRN PRN Reason: Pain traZODone HCL 150 mg PO HS Gabapentin [Neurontin] 600 mg PO BID tiZANidine [Zanaflex] 4 mg PO BID busPIRone HCL 15 mg PO BID Primidone [Mysoline] 50 mg PO HS Fluticasone Nasal [place] [Flonase Nasal [place]] 2 spr EA NOSTRIL DAILY Cyanocobalamin [Vitamin B-12 Injection] 1,000 mcg IM Q60D Desvenlafaxine [Pristiq ER] 100 mg PO HS Desvenlafaxine Succinate [Pristiq ER] 50 mg PO HS Butalbital/Aspirin/Caffeine [Sakmfs-Kngbjwr-Etbsfyvs 50-325-40 mg] 1 tab PO Q8H PRN PRN Reason: Headache ARIPiprazole [Abilify] 2 mg PO HS Beclomethasone Dip 80 Mcg/Puff [Qvar 80 mcg] 1 puff INHALATION RT-BID #1 puff Salmeterol Xinafoate [Serevent Diskus] 1 puff INHALATION RT-BID #1 device Albuterol Inhaler [Ventolin Hfa Inhaler] 1 - 2 puff INHALATION RT-Q4H PRN #1 puff PRN Reason: Shortness Of Breath Changed Ipratropium-Albuterol Nebulize [Duoneb 0.5 mg-3 mg/3 ml Soln] 3 ml INHALATION QID #120 neb Discontinued Ipratropium/Albuterol Sulfate [Combivent Respimat Inhaler] 1 puff INHALATION RT-BID hydrOXYzine HCL [Atarax] 50 mg PO Q8H PRN PRN Reason: Itching guaiFENesin-Coden 100-10MG/5ML [Robitussin AC] 10 ml PO Q6H PRN 3 Days #120 ml PRN Reason: Cough Meclizine [Antivert] 25 mg PO BID Discharge Medication List Gabapentin [Neurontin] 600 mg PO BID 02/12/18 [History] HYDROcodone/APAP 7.5-325MG [[place] 7.5-325] 1 tab PO Q6H PRN 02/12/18 [History] busPIRone HCL 15 mg PO BID 02/12/18 [History] tiZANidine [Zanaflex] 4 mg PO BID 02/12/18 [History] traZODone HCL 150 mg PO HS 02/12/18 [History] ARIPiprazole [Abilify] 2 mg PO HS 11/30/19 [History] Butalbital/Aspirin/Caffeine [Qiezpp-Hxvwwmc-Scciuzwi 50-325-40 mg] 1 tab PO Q8H PRN 11/30/19 [History] Cyanocobalamin [Vitamin B-12 Injection] 1,000 mcg IM Q60D 11/30/19 [History] Desvenlafaxine Succinate [Pristiq ER] 50 mg PO HS 11/30/19 [History] Desvenlafaxine [Pristiq ER] 100 mg PO HS 11/30/19 [History] Fluticasone Nasal [place] [Flonase Nasal [place]] 2 spr EA NOSTRIL DAILY 11/30/19 [History] Primidone [Mysoline] 50 mg PO HS 11/30/19 [History] Albuterol Inhaler [Ventolin Hfa Inhaler] 1 - 2 puff INHALATION RT-Q4H PRN #1 puff 12/02/19 [Rx] Beclomethasone Dip 80 Mcg/Puff [Qvar 80 mcg] 1 puff INHALATION RT-BID #1 puff 12/02/19 [Rx] Ipratropium-Albuterol Nebulize [Duoneb 0.5 mg-3 mg/3 ml Soln] 3 ml INHALATION QID #120 neb 12/02/19 [Rx] Nicotine 21Mg/24Hr Patch [Habitrol] 1 patch TRANSDERM DAILY #14 patch 12/02/19 [Rx] Salmeterol Xinafoate [Serevent Diskus] 1 puff INHALATION RT-BID #1 device 12/02/19 [Rx] predniSONE 10 mg PO DAILY #30 tab 12/02/19 [Rx] Follow up Appointment(s)/Referral(s): [facility] [NON-STAFF] - As Needed (nebulizer) Isael Palomares DO [Primary Care Provider] - 12/15/19 11:15 am Patient Instructions/Handouts: How to Stop Smoking (DC), How to Use a Nebulizer (DC) Discharge Disposition: HOME SELF-CARE
== END 2019-12-02 15:32 | disposition home or self-care (01) | DRG 190 ==
LOC: EC 20:56 → 4SSUR 23:00
PROVIDERS: ADMIT Hospitalist; ATTEND Hospitalist
DX: J44.1 Chronic obstructive pulmonary disease with (acute) exacerbation (principal); J12.9 Viral pneumonia, unspecified; J96.01 Acute respiratory failure with hypoxia; J44.0 Chronic obstructive pulmonary disease with (acute) lower respiratory infection; F17.210 Nicotine dependence, cigarettes, uncomplicated; J20.9 Acute bronchitis, unspecified; Z71.6 Tobacco abuse counseling; E87.5 Hyperkalemia; F41.9 Anxiety disorder, unspecified; G62.9 Polyneuropathy, unspecified; T38.0X5A Adverse effect of glucocorticoids and synthetic analogues, initial encounter; Z79.899 Other long term (current) drug therapy; Z90.710 Acquired absence of both cervix and uterus; Z90.49 Acquired absence of other specified parts of digestive tract; R73.9 Hyperglycemia, unspecified
CPT/HCPCS: 36415; 71046; 80048; 80053; 83605; 84484; 85025; 85610; 85730; 87040; 87502; 93005; 94640; 94644; 94760; 96365; 96367; 96375; 99285

== ENCOUNTER → 2020-05-10 | Outpatient (CLI) | payer OTHER ==
--- NOTE | 2020-05-10 12:21 | US ---
EXAMINATION TYPE: US venous doppler duplex UE RT DATE OF EXAM: 05/10/2020 COMPARISON: NONE CLINICAL HISTORY: R22.31 Swelling Mass and Lump rt upper limb. Painful swelling in right medial forea rm, no injury, no h/o dvt SIDE PERFORMED: Right Right Arm: Negative for DVT internal echoes within noncompressible right basilic vein that extend f rom medial forearm up through upper extremity tech impression relayed to office @ 12:15 IMPRESSION: 1. Right upper extremity ultrasound negative for deep venous thrombosis. 2. Superficial thrombosis is noted within the right basilic vein at the palpable abnormality.
== END | disposition home or self-care (01) ==
LOC: RADUSWWP 11:37
PROVIDERS: ATTEND Family Medicine
DX: I82.611 Acute embolism and thrombosis of superficial veins of right upper extremity (principal)

== ENCOUNTER 2020-06-13 21:56 | Inpatient (IN) | payer OTHER ==
--- NOTE | 2020-06-13 22:12 | ED ---
SOB HPI - General Chief Complaint: Shortness of Breath Stated Complaint: SOB Time Seen by Provider: 06/13/20 22:10 Source: patient Mode of arrival: wheelchair Limitations: no limitations - History of Present Illness Initial Comments: Tamiko 49-year-old female with history of COPD who presents the ER today for evaluation of cough, pleuritic chest pain with coughing, fever, chills. Patient reports that she's had a cough for couple days it's been progressively worsening. Today it was so bad that she felt like she couldn't catch her breath, her oxygen was noted to be in the mid 80s at home she did a double breathing treatment prior to coming in. Patient reports she occasionally has COPD exacerbations but never has a fever or discomfort the way she is experiencing today. Patient denies any cardiac history. - Related Data Home Medications Medication Instructions Recorded Confirmed Gabapentin [Neurontin] 600 mg PO BID 02/12/18 11/30/19 HYDROcodone/APAP 7.5-325MG [[place] 1 tab PO Q6H PRN 02/12/18 11/30/19 7.5-325] busPIRone HCL 15 mg PO BID 02/12/18 11/30/19 tiZANidine [Zanaflex] 4 mg PO BID 02/12/18 11/30/19 traZODone HCL 150 mg PO HS 02/12/18 11/30/19 ARIPiprazole [Abilify] 2 mg PO HS 11/30/19 11/30/19 Butalbital/Aspirin/Caffeine 1 tab PO Q8H PRN 11/30/19 11/30/19 [Bfwrcv-Vzcbtka-Amvyfnvh 50-325-40 mg] Cyanocobalamin [Vitamin B-12 1,000 mcg IM Q60D 11/30/19 11/30/19 Injection] Desvenlafaxine Succinate [Pristiq 50 mg PO HS 11/30/19 11/30/19 ER] Desvenlafaxine [Pristiq ER] 100 mg PO HS 11/30/19 11/30/19 Fluticasone Nasal [place] [Flonase 2 spr EA NOSTRIL DAILY 11/30/19 11/30/19 Nasal [place]] Primidone [Mysoline] 50 mg PO HS 11/30/19 11/30/19 Previous Rx's Medication Instructions Recorded Albuterol Inhaler (Mhu) [Ventolin 1 - 2 puff INHALATION RT-Q4H PRN 12/02/19 Hfa Inhaler (Mhu)] #1 puff Beclomethasone Dip 80 Mcg/Puff 1 puff INHALATION RT-BID #1 puff 12/02/19 [Qvar 80 mcg] Ipratropium-Albuterol Nebulize 3 ml INHALATION QID #120 neb 12/02/19 [Duoneb 0.5 mg-3 mg/3 ml Soln] Nicotine 21Mg/24Hr Patch [Habitrol] 1 patch TRANSDERM DAILY #14 patch 12/02/19 Salmeterol Xinafoate [Serevent 1 puff INHALATION RT-BID #1 device 12/02/19 Diskus] predniSONE 10 mg PO DAILY #30 tab 12/02/19 Allergies Allergy/AdvReac Type Severity Reaction Status Date / Time amitriptyline [From Elavil] Allergy Unknown Verified 06/13/20 22:01 pregabalin [From Lyrica] Allergy Unknown Verified 06/13/20 22:01 Review of Systems ROS Statement: Those systems with pertinent positive or pertinent negative responses have been documented in the HPI. ROS Other: All systems not noted in ROS Statement are negative. Past Medical History Past Medical History: Asthma, COPD Additional Past Medical History / Comment(s): anxiety, neuropathy rt side, back and neck pain History of Any Multi-Drug Resistant Organisms: None Reported Past Surgical History: Adenoidectomy, Cholecystectomy, Hysterectomy, Tonsillect kareem Additional Past Surgical History / Comment(s): ablation to back Past Psychological History: No Psychological Hx Reported Smoking Status: Current every day smoker Past Alcohol Use History: Rare Past Drug Use History: Marijuana - Past Family History Mother Family Medical History: No Reported History General Exam - General Exam Comments Initial Comments: Physical Exam GENERAL: Ill and uncomfortable appearing HENT: Normocephalic, Atraumatic. EYES: PERRL, EOMI PULMONARY: Coarse breath sounds on right Wheezing in all lung [place] CARDIOVASCULAR: Tachycardia ABDOMEN: Soft and nontender with normal bowel sounds. SKIN: Dry, warm : Deferred NEUROLOGIC: Patient is alert and oriented x3. Moving all extremities spontaneously MUSCULOSKELETAL: Normal extremities with adequate strength and full range of motion. No lower extremity swelling or edema. No calf tenderness. PSYCHIATRIC: Normal psychiatric evaluation. Limitations: no limitations Course Vital Signs 06/13/20 06/13/20 06/13/20 21:57 22:51 23:04 Temperature 99.4 F Pulse Rate 106 H 107 H 114 H Respiratory 24 Rate Blood Pressure 132/89 O2 Sat by Pulse 88 L Oximetry Procedures - Sepsis Sepsis Focused Exam #1 Sepsis Focused Exam Date: 06/13/20 Sepsis Focused Exam Time: 23:57 Sepsis Focused Exam Complete: Yes Vital Signs & RN Notes Reviewed: Yes Capillary Refill: < 2 Seconds: Fingers, Toes Peripheral Pulses: Normal: Radial (R), Radial (L) Skin Color: Normal for Patient Respiratory Exam: wheezes, decreased breath sounds Cardiovascular Exam: regular rate Medical Decision Making - Medical Decision Making The patient was seen and evaluated upon arrival Patient noted to be tachycardic, tachypnic, febrile and hypoxic CODE Sepsis IVF, Antipyretics, breathing treatment and steroids ordered 22:50 SEPSIS IDENTIFIED CXR reviewed by me concerning for RUL pneumonia - will treat with rocephin and azithromycin Labs with leukocytosis CXR reviewed by radiology confirms RUL pneumonia Patient's tachycardia worsen after breathing treatment however improved with IV fluids as did her oxygen saturation. The patient will be admitted to the hospital for sepsis secondary to pneumonia. COPD medications also ordered for treatment. Patient will be treated with Rocephin and azithromycin for community-acquired pneumonia. She'll be given breathing treatments [id number]. Nicotine patch administered as the patie nt has a current cigarette smoker. - Lab Data Result diagrams: 06/13/20 22:23 06/13/20 22:23 Lab Results 06/13/20 06/13/20 06/13/20 Range/Units 22:23 22:23 22:23 WBC 20.2 H (3.8-10.6) k/uL RBC 4.57 (3.80-5.40) m/uL Hgb 14.6 (11.4-16.0) gm/dL Hct 44.2 (34.0-46.0) % MCV 96.7 (80.0-100.0) fL MCH 31.9 (25.0-35.0) pg MCHC 33.0 (31.0-37.0) g/dL RDW 12.5 (11.5-15.5) % Plt Count 340 (150-450) k/uL Neutrophils % 84 % Lymphocytes % 7 % Monocytes % 6 % Eosinophils % 1 % Basophils % 1 % Neutrophils # 17.1 H (1.3-7.7) k/uL Lymphocytes # 1.4 (1.0-4.8) k/uL Monocytes # 1.1 H (0-1.0) k/uL Eosinophils # 0.3 (0-0.7) k/uL Basophils # 0.2 (0-0.2) k/uL PT 10.3 (9.0-12.0) sec INR 1.0 (<1.2) APTT 25.2 (22.0-30.0) sec Sodium 133 L (137-145) mmol/L Potassium 3.8 (3.5-5.1) mmol/L Chloride 95 L (98-107) mmol/L Carbon Dioxide 27 (22-30) mmol/L Anion Gap 11 mmol/L BUN 11 (7-17) mg/dL Creatinine 0.89 (0.52-1.04) mg/dL Est GFR (CKD-EPI)AfAm 88 (>60 ml/min/1.73 sqM) Est GFR (CKD-EPI)NonAf 76 (>60 ml/min/1.73 sqM) Glucose 124 H (74-99) mg/dL Plasma Lactic Acid Juan (0.7-2.0) mmol/L Calcium 9.7 (8.4-10.2) mg/dL Total Bilirubin 0.5 (0.2-1.3) mg/dL AST 20 (14-36) U/L ALT 14 (4-34) U/L Alkaline Phosphatase 127 H (38-126) U/L Troponin I (0.000-0.034) ng/mL NT-Pro-B Natriuret Pep pg/mL Total Protein 7.0 (6.3-8.2) g/dL Albumin 4.0 (3.5-5.0) g/dL 06/13/20 06/13/20 06/13/20 Range/Units 22:23 22:23 22:23 WBC (3.8-10.6) k/uL RBC (3.80-5.40) m/uL Hgb (11.4-16.0) gm/dL Hct (34.0-46.0) % MCV (80.0-100.0) fL MCH (25.0-35.0) pg MCHC (31.0-37.0) g/dL RDW (11.5-15.5) % Plt Count (150-450) k/uL Neutrophils % % Lymphocytes % % Monocytes % % Eosinophils % % Basophils % % Neutrophils # (1.3-7.7) k/uL Lymphocytes # (1.0-4.8) k/uL Monocytes # (0-1.0) k/uL Eosinophils # (0-0.7) k/uL Basophils # (0-0.2) k/uL PT (9.0-12.0) sec INR (<1.2) APTT (22.0-30.0) sec Sodium (137-145) mmol/L Potassium (3.5-5.1) mmol/L Chloride (98-107) mmol/L Carbon Dioxide (22-30) mmol/L Anion Gap mmol/L BUN (7-17) mg/dL Creatinine (0.52-1.04) mg/dL Est GFR (CKD-EPI)AfAm (>60 ml/min/1.73 sqM) Est GFR (CKD-EPI)NonAf (>60 ml/min/1.73 sqM) Glucose (74-99) mg/dL Plasma Lactic Acid Juan 1.2 (0.7-2.0) mmol/L Calcium (8.4-10.2) mg/dL Total Bilirubin (0.2-1.3) mg/dL AST (14-36) U/L ALT (4-34) U/L Alkaline Phosphatase (38-126) U/L Troponin I <0.012 (0.000-0.034) ng/mL NT-Pro-B Natriuret Pep 190 pg/mL Total Protein (6.3-8.2) g/dL Albumin (3.5-5.0) g/dL Disposition Clinical Impression: Sepsis, Right upper lobe pneumonia, COPD (chronic obstructive pulmonary disease), Tobacco abuse, Hypoxia Disposition: ADMITTED IP TO THIS HOSP Condition: Serious Is patient prescribed a controlled substance at d/c from ED?: No
[2020-06-13] MEDS ORDERED: methylPREDNISolone SOD SUCCI 125 MG/2 ML VIAL IV STA (22:26)
[2020-06-13] MEDS ORDERED: MORPHINE SULFATE 4 MG/ML SYRINGE IVP STA (22:26)
[2020-06-13] MEDS ORDERED: IPRATROPIUM-ALBUTEROL 3 ML NEB INHALATION STA (22:26)
[2020-06-13] MEDS ORDERED: SODIUM CHLORIDE 0.9% 1,000 ML IV ONE (22:26)
[2020-06-13 22:36] LABS: Basophils # (A) 0.2 k/uL (0-0.2); Basophils % (A) 1 %; Eosinophils # (A) 0.3 k/uL (0-0.7); Eosinophils % (A) 1 %; HCT 44.2 % (34.0-46.0); HGB 14.6 gm/dL (11.4-16.0); Lymphocytes # (A) 1.4 k/uL (1.0-4.8); Lymphocytes % (A) 7 %; MCH 31.9 pg (25.0-35.0); MCV 96.7 fL (80.0-100.0); Monocytes # (A) 1.1 k/uL (0-1.0); Monocytes % (A) 6 %; Neutrophils # (A) 17.1 k/uL (1.3-7.7); Neutrophils % (A) 84 %; Platelet Count 340 k/uL (150-450); RBC 4.57 m/uL (3.80-5.40); RDW 12.5 % (11.5-15.5); WBC 20.2 k/uL (3.8-10.6)
[2020-06-13] MEDS ORDERED: ACETAMINOPHEN TAB 325 MG TAB PO STA (22:36)
[2020-06-13] MEDS ORDERED: cefTRIAXone IN SWFI 1,000 MG/10 ML SYRINGE IVP STA (22:36)
[2020-06-13] MEDS ORDERED: AZITHROMYCIN 500 MG in SODIUM CHLORIDE 0.9% 250 ML IVPB STA (22:36)
[2020-06-13] MEDS: SODIUM CHLORIDE 0.9% 1,000 ML IV SCH (22:37)
--- NOTE | 2020-06-13 22:44 | XR ---
EXAMINATION TYPE: XR chest 2V DATE OF EXAM: 06/13/2020 COMPARISON: 11/29/2019 HISTORY: Short of breath TECHNIQUE: 2 views. There is some coarse infiltrate right upper lobe. There is pulmonary hyperinflation and flattening of the diaphragm. Heart size is normal. There are no hilar masses. There are chest leads. Bony thorax i s intact. IMPRESSION: There is some patchy right upper lobe pneumonia that appears new compared to old exam. CO PD. Normal heart.
[2020-06-13 22:48] LABS: Calcium 9.7 mg/dL (8.4-10.2); Potassium 3.8 mmol/L (3.5-5.1); Total Bilirubin 0.5 mg/dL (0.2-1.3)
[2020-06-13 22:52] LABS: Partial Thromboplastin Time 25.2 sec (22.0-30.0); Prothrombin Time 10.3 sec (9.0-12.0)
[2020-06-13] MEDS ORDERED: KETOROLAC 15 MG/ML 1 ML VIAL IVP STA (23:59)
[2020-06-14] MEDS ORDERED: KETOROLAC 15 MG/ML 1 ML VIAL ONE (00:01)
[2020-06-14] MEDS ORDERED: amLODIPine 10 MG TAB PO SCH (09:00)
[2020-06-14] MEDS: IPRATROPIUM-ALBUTEROL 3 ML NEB INHALATION PRN ×4 (09:15→19:26)
[2020-06-14] MEDS ORDERED: BUTALB/APAP/CAFF 50-325-40MG TAB PO PRN (09:54)
[2020-06-14] MEDS: HYDROcodone/APAP 7.5-325MG 1 EACH TAB PO PRN ×3 (10:32→23:23)
[2020-06-14] MEDS ORDERED: guaiFENesin-DM 100-10MG/5ML 10 ML CUP PO PRN (12:00)
[2020-06-14] MEDS: SODIUM CHLORIDE 0.9% 1,000 ML IV SCH ×3 (12:02→21:13)
[2020-06-14] MEDS: FLUTICASONE 50MCG/SPRAY NASAL 16GM EA NOSTRIL SCH (12:02)
[2020-06-14] MEDS: tiZANidine 4 MG TAB PO SCH ×3 (12:52→22:28)
[2020-06-14] MEDS: KETOROLAC 15 MG/ML 1 ML VIAL IVP PRN ×2 (12:52→19:28)
[2020-06-14] MEDS: NICOTINE 14MG/24HR PATCH TRANSDERM SCH (12:52)
[2020-06-14] MEDS: predniSONE 20 MG TAB PO SCH (12:52)
[2020-06-14] MEDS: LEVOFLOXACIN 500 MG TAB PO SCH (12:53)
[2020-06-14] MEDS: FAMOTIDINE 20 MG TAB PO SCH ×2 (12:53→21:12)
[2020-06-14] MEDS: guaiFENesin-Coden 100-10MG/5ML 10 ML CUP PO PRN ×2 (12:53→21:24)
--- NOTE | 2020-06-14 13:03 | P.HPIM ---
History of Present Illness 49-year-old female with history of COPD continues to smoke came in with complaints of severe cough and chest pain when coughing which is pleuritic in nature. Denied any fever chills. Patient had a low-grade fever here patient has a right upper lobe patchy infiltrate suspicious for pneumonia patient has significant bilateral rhonchi. Patient doesn't have much of wheezing is although on the patient denied any significant cough production. Patient denied any lightheadedness diaphoresis. Is presently requiring oxygen presently on 2 L of oxygen Review of Systems REVIEW OF SYSTEMS: CONSTITUTIONAL: No fever, no malaise, no fatigue. HEENT: No recent visual problems or hearing problems. Denied any sore throat. CARDIOVASCULAR: No chest pain, orthopnea, PND, no palpitations, no syncope. PULMONARY: no hemoptysis. GASTROINTESTINAL: No diarrhea, no nausea, no vomiting, no abdominal pain. NEUROLOGICAL: No headaches, no weakness, no numbness. HEMATOLOGICAL: Denies any bleeding or petechiae. GENITOURINARY: Denies any burning micturition, frequency, or urgency. MUSCULOSKELETAL/RHEUMATOLOGICAL: Denies any joint pain, swelling, or any muscle pain. ENDOCRINE: Denies any polyuria or polydipsia. The rest of the 14-point review of systems is negative. Past Medical History Past Medical History: Asthma, COPD Additional Past Medical History / Comment(s): anxiety, neuropathy rt side, back and neck pain History of Any Multi-Drug Resistant Organisms: None Reported Past Surgical History: Adenoidectomy, Cholecystectomy, Hysterectomy, Tonsillectomy Additional Past Surgical History / Comment(s): ablation to back Past Psychological History: No Psychological Hx Reported Smoking Status: Current every day smoker Past Alcohol Use History: Rare Past Drug Use History: Marijuana - Past Family History Mother Family Medical History: No Reported History Medications and Allergies Home Medications Medication Instructions Recorded Confirmed Type HYDROcodone/APAP 7.5-325MG [[place] 1 tab PO Q6H PRN 02/12/18 06/14/20 History 7.5-325] tiZANidine [Zanaflex] 4 mg PO TID 02/12/18 06/14/20 History ARIPiprazole [Abilify] 2 mg PO HS 11/30/19 06/14/20 History Butalbital/Aspirin/Caffeine 1 tab PO Q8H PRN 11/30/19 06/14/20 History [Whqadd-Sojtnvh-Skpzjcta 50-325-40 mg] Cyanocobalamin [Vitamin B-12 1,000 mcg IM Q60D 11/30/19 06/14/20 History Injection] Desvenlafaxine Succinate [Pristiq 50 mg PO HS 11/30/19 06/14/20 History ER] Desvenlafaxine [Pristiq ER] 100 mg PO HS 11/30/19 06/14/20 History Fluticasone Nasal [place] [Flonase 2 spr EA NOSTRIL DAILY 11/30/19 06/14/20 History Nasal [place]] Primidone [Mysoline] 50 - 100 mg PO HS 11/30/19 06/14/20 History Albuterol Sulfate [Ventolin HFA] 2 puff INHALATION RT-Q6H PRN 06/14/20 06/14/20 History Fluticasone Propion/Salmeterol 1 puff INHALATION RT-BID 06/14/20 06/14/20 History [Wixela 250-50 Inhub] Gabapentin [Neurontin] 600 mg PO BID 06/14/20 06/14/20 History Ipratropium-Albuterol Nebulize 3 ml INHALATION RT-QID 06/14/20 06/14/20 History [Duoneb 0.5 mg-3 mg/3 ml Soln] Polyethylene Glycol 3350 [Miralax] 17 gm PO DAILY 06/14/20 06/14/20 History amLODIPine [Norvasc] 10 mg PO DAILY 06/14/20 06/14/20 History Allergies Allergy/AdvReac Type Severity Reaction Status Date / Time amitriptyline [From Elavil] Allergy Unknown Verified 06/14/20 07:03 pregabalin [From Lyrica] Allergy Unknown Verified 06/14/20 07:03 Physical Exam Vitals: Vital Signs Temp Pulse Pulse Resp BP BP Pulse Ox 06/14/20 12:19 92 06/14/20 12:12 97.7 F 84 21 108/80 94 L 06/14/20 12:09 92 06/14/20 09:26 86 06/14/20 09:15 86 06/14/20 08:05 90 18 06/14/20 07:20 97.7 F 90 18 110/83 94 L 06/14/20 06:00 84 18 94/65 98 06/14/20 04:00 90 20 91/68 96 06/14/20 00:30 90 20 101/73 96 06/13/20 23:30 95 20 106/84 96 06/13/20 23:04 114 H 06/13/20 22:51 107 H 06/13/20 22:11 24 06/13/20 21:57 99.4 F 106 H 24 132/89 88 L Intake and Output 06/13/20 06/14/20 06/14/20 22:59 06:59 14:59 Other: Weight 54.431 kg 54.431 kg PHYSICAL EXAMINATION: GENERAL: The patient is alert and oriented x3, not in any acute distress. Well developed, well nourished. HEENT: Pupils are round and equally reacting to light. EOMI. No scleral icterus. No conjunctival pallor. Normocephalic, atraumatic. No pharyngeal erythema. No thyromegaly. CARDIOVASCULAR: S1 and S2 present. No murmurs, rubs, or gallops. PULMONARY: Good air entry into bilateral lung [place] diffuse bilateral rhonchiand wheezing ABDOMEN: Soft, nontender, nondistended, normoactive bowel sounds. No palpable organomegaly. MUSCULOSKELETAL: No joint swelling or deformity. EXTREMITIES: No cyanosis, clubbing, or pedal edema. NEUROLOGICAL: Gross neurological examination did not reveal any focal deficits. SKIN: No rashes. Results CBC & Chem 7: 06/13/20 22:23 06/13/20 22:23 Labs: Abnormal Lab Results - Last 24 Hours (Table) 06/13/20 06/13/20 Range/Units 22:23 22:23 WBC 20.2 H (3.8-10.6) k/uL Neutrophils # 17.1 H (1.3-7.7) k/uL Monocytes # 1.1 H (0-1.0) k/uL Sodium 133 L (137-145) mmol/L Chloride 95 L (98-107) mmol/L Glucose 124 H (74-99) mg/dL Alkaline Phosphatase 127 H (38-126) U/L Thrombosis Risk Factor Assmnt - Choose All That Apply Any of the Below Risk Factors Present?: Yes Each Factor Represents 1 point: Abnormal pulmonary function (COPD), Age 41-60 years Thrombosis Risk Factor Assessment Total Risk Factor Score: 2 Thrombosis Risk Factor Assessment Level: Low Risk Assessment and Plan Plan: -Shortness of breath: Secondary to possible right upper lobe pneumonia with mild COPD exacerbation patient will start on levofloxacin because of suspicion of atypical pneumonia. Patient will also be started on oral steroids and the nicotine cessation counseling was provided, continue with onset as needed -Chest and musculoskeletal from coughing Will use Toradol for pain -COPD with mild acute exacerbation -Leukocytosis secondary to pneumonia -Continued nicotine use -Hypertension -Depression -Peripheral neuropathy -GI prophylaxis with Pepcid but due to prophylaxis with Lovenox -Mild hypovolemic hyponatremia
--- NOTE | 2020-06-14 15:21 | P.CNPUL ---
History of Present Illness Consult date: 06/14/20 Requesting physician: Jay Ibarra Reason for consult: dyspnea, cough, abnormal CXR/CT Chief complaint: Dyspnea, back pain, cough History of present illness: 49-year-old white female patient of Dr. Palomares, chronic smoker, known history of COPD, chronic neck and back pain, marijuana use, anxiety, who came into the hospital on 06/13/2020, for evaluation of cough, pleuritic chest pain, which the patient describes a sharp, brought on by coughing, increased shortness of breath. Patient's pulse ox was in the mid 80s at home, she was having increasing trouble breathing, and nebulized bronchodilators were not helping. She denies any hemoptysis. Denied any fever or chills. Chest x-ray showed patchy right upper lobe pneumonia, lab work revealed white blood cell count of 20.2, hemoglobin of 14.6, platelet count is 340, sodium is 133, potassium 3.8, chloride is 95, the rest of electrolytes and normal renal profile, lactic acid was 1.2, alk phos was 127, AST and ALT were within normal limits, troponin was less than 0.012, proBNP was 190. Patient was started on a combination of jaz thromycin and Rocephin, IV steroids, nebulized bronchodilators, and we were asked to see the patient in consultation for shortness of breath related to right upper lung pneumonia Review of Systems All systems: negative Constitutional: Denies chills, Denies fever Eyes: denies blurred vision, denies pain Ears, nose, mouth and throat: Denies headache, Denies sore throat Cardiovascular: Denies chest pain, Denies shortness of breath Respiratory: Reports cough, Reports dyspnea, Reports pain on inspiration, Reports respiratory infections, Reports wheezing Gastrointestinal: Denies abdominal pain, Denies diarrhea, Denies nausea, Denies vomiting Genitourinary: Denies dysuria, Denies hematuria Musculoskeletal: Denies myalgias Integumentary: Denies pruritus, Denies rash Neurological: Denies numbness, Denies weakness Psychiatric: Denies anxiety, Denies depression Endocrine: Denies fatigue, Denies weight change Past Medical History Past Medical History: Asthma, COPD Additional Past Medical History / Comment(s): anxiety, neuropathy rt side, back and neck pain History of Any Multi-Drug Resistant Organisms: None Reported Past Surgical History: Adenoidectomy, Cholecystectomy, Hysterectomy, Tonsillectomy Additional Past Surgical History / Comment(s): ablation to back Past Psychological History: No Psychological Hx Reported Smoking Status: Current every day smoker Past Alcohol Use History: Rare Past Drug Use History: Marijuana - Past Family History Mother Family Medical History: No Reported History Medications and Allergies Home Medications Medication Instructions Recorded Confirmed Type HYDROcodone/APAP 7.5-325MG [[place] 1 tab PO Q6H PRN 02/12/18 06/14/20 History 7.5-325] tiZANidine [Zanaflex] 4 mg PO TID 02/12/18 06/14/20 History ARIPiprazole [Abilify] 2 mg PO HS 11/30/19 06/14/20 History Butalbital/Aspirin/Caffeine 1 tab PO Q8H PRN 11/30/19 06/14/20 History [Icrddm-Uydvkqm-Ifbrtipp 50-325-40 mg] Cyanocobalamin [Vitamin B-12 1,000 mcg IM Q60D 11/30/19 06/14/20 History Injection] Desvenlafaxine Succinate [Pristiq 50 mg PO HS 11/30/19 06/14/20 History ER] Desvenlafaxine [Pristiq ER] 100 mg PO HS 11/30/19 06/14/20 History Fluticasone Nasal [place] [Flonase 2 spr EA NOSTRIL DAILY 11/30/19 06/14/20 History Nasal [place]] Primidone [Mysoline] 50 - 100 mg PO HS 11/30/19 06/14/20 History Albuterol Sulfate [Ventolin HFA] 2 puff INHALATION RT-Q6H PRN 06/14/20 06/14/20 History Fluticasone Propion/Salmeterol 1 puff INHALATION RT-BID 06/14/20 06/14/20 Hi story [[place]ela 250-50 Inhub] Gabapentin [Neurontin] 600 mg PO BID 06/14/20 06/14/20 History Ipratropium-Albuterol Nebulize 3 ml INHALATION RT-QID 06/14/20 06/14/20 History [Duoneb 0.5 mg-3 mg/3 ml Soln] Polyethylene Glycol 3350 [Miralax] 17 gm PO DAILY 06/14/20 06/14/20 History amLODIPine [Norvasc] 10 mg PO DAILY 06/14/20 06/14/20 History Allergies Allergy/AdvReac Type Severity Reaction Status Date / Time amitriptyline [From Elavil] Allergy Unknown Verified 06/14/20 07:03 pregabalin [From Lyrica] Allergy Unknown Verified 06/14/20 07:03 Physical Exam Vitals: Vital Signs Temp Pulse Pulse Resp BP BP Pulse Ox 06/14/20 12:19 92 06/14/20 12:12 97.7 F 84 21 108/80 94 L 06/14/20 12:09 92 06/14/20 09:26 86 06/14/20 09:15 86 06/14/20 08:05 90 18 06/14/20 07:20 97.7 F 90 18 110/83 94 L 06/14/20 06:00 84 18 94/65 98 06/14/20 04:00 90 20 91/68 96 06/14/20 00:30 90 20 101/73 96 06/13/20 23:30 95 20 106/84 96 06/13/20 23:04 114 H 06/13/20 22:51 107 H 06/13/20 22:11 24 06/13/20 21:57 99.4 F 106 H 24 132/89 88 L Intake and Output 06/14/20 06/14/20 06/14/20 06:59 14:59 22:59 Other: # Voids 3 Weight 54.431 kg GENERAL EXAM: Alert, very pleasant, 49-year-old white female, on 2 L of oxygen with pulse ox of 94%, comfortable in no apparent distress. HEAD: Normocephalic/atraumatic. EYES: Normal reaction of pupils, equal size. Conjunctiva pink, sclera white. NOSE: Clear with pink turbinates. THROAT: No erythema or exudates. NECK: No masses, no JVD, no thyroid enlargement, no adenopathy. CHEST: No chest wall deformity. Symmetrical expansion. LUNGS: Equal air entry with inspiratory crackles over right upper lobe posteriorly, and diffuse wheezes and diminished breath sounds overall CVS: Regular rate and rhythm, normal S1 and S2, no gallops, no murmurs, no rubs ABDOMEN: Soft, nontender. No hepatosplenomegaly, normal bowel sounds, no guarding or rigidity. EXTREMITIES: No clubbing, no edema, no cyanosis, 2+ pulses and upper and lower extremities. MUSCULOSKELETAL: Muscle strength and tone normal. SPINE: No scoliosis or deformity SKIN: No rashes CENTRAL NERVOUS SYSTEM: Alert and oriented -3. No focal deficits, tone is normal in all 4 extremities. PSYCHIATRIC: Alert and oriented -3. Appropriate affect. Intact judgment and insight. Results - Laboratory Findings CBC and BMP: 06/13/20 22:23 06/13/20 22:23 PT/INR, D-dimer PT 10.3 sec (9.0-12.0) 06/13/20 22:23 INR 1.0 (<1.2) 06/13/20 22:23 Abnormal lab findings: Abnormal Labs 06/13/20 06/13/20 22:23 22:23 WBC 20.2 H Neutrophils # 17.1 H Monocytes # 1.1 H Sodium 133 L Chloride 95 L Glucose 124 H Alkaline Phosphatase 127 H - Diagnostic Findings Chest x-ray: report reviewed, image reviewed Assessment and Plan Plan: Assessment: #1. Acute hypoxic respiratory failure related to acute exacerbation of COPD, and right upper lobe pneumonia, NAD acquired #2. Chronic and ongoing history of nicotine dependence #3. Chronic obstructive pulmonary disease #4. Hypertension #5. Anxiety/depression #6. Peripheral neuropathy #7. Chronic back and neck pain #8. Mild hyponatremia, with a sodium of 133, likely hypovolemic Plan: Continue current antibiotic coverage, patient initially was given Rocephin and Zithromax, is currently on Levaquin, continue IV steroids, nebulized bronchodilators. Send a sputum for culture. Monitor febrile pattern, follow-up chest x-ray in the morning. I performed a history & physical examination of the patient and discussed their management with my nurse practitioner, Caroline Hughes. I reviewed the nurse practitioner's note and agree with the documented findings and plan of care. Lung sounds are positive for diffuse wheezes throughout the lung [place]. The findings and the impression was discussed with the patient. I attest to the documentation by the nurse practitioner. Time with Patient: Greater than 30
[2020-06-14] MEDS: SYMBICORT 80-4.5 MCG INHALER INHALATION SCH (19:26)
[2020-06-14] MEDS ORDERED: PRIMIDONE 50 MG TAB PO SCH (21:00)
[2020-06-14] MEDS ORDERED: DESVENLAFAXINE 100 MG PO SCH (21:00)
[2020-06-14] MEDS: DESVENLAFAXINE SUCCINATE 50 MG TAB.ER.24H PO SCH (21:11)
[2020-06-14] MEDS: GABAPENTIN 300 MG CAP PO SCH (21:11)
[2020-06-14] MEDS: ARIPiprazole 2 MG TAB PO SCH (21:11)
[2020-06-14] MEDS: traZODone HCL 100 MG TAB PO SCH (21:12)
[2020-06-15] MEDS: IPRATROPIUM-ALBUTEROL 3 ML NEB INHALATION PRN ×4 (03:39→18:41)
[2020-06-15 03:46] LABS: Appearance,Urine Clear (Clear); Bilirubin,Urine Negative (Negative); Blood,Urine Negative (Negative); Color,Urine Yellow; Glucose,Urine (UA) Negative (Negative); Ketones,Urine Negative (Negative); Leukocyte Esterase,Urine Negative (Negative); Nitrite,Urine Negative (Negative); Protein,Urine Negative (Negative); Specific Gravity,Urine 1.017 (1.001-1.035); Urobilinogen,Urine <2.0 mg/dL (<2.0)
[2020-06-15] MEDS: SODIUM CHLORIDE 0.9% 1,000 ML IV SCH ×3 (06:47→22:17)
[2020-06-15] MEDS: SYMBICORT 80-4.5 MCG INHALER INHALATION SCH ×3 (07:11→18:41)
[2020-06-15] MEDS: KETOROLAC 15 MG/ML 1 ML VIAL IVP PRN ×3 (07:40→18:00)
[2020-06-15] MEDS: FLUTICASONE 50MCG/SPRAY NASAL 16GM EA NOSTRIL SCH (07:41)
[2020-06-15] MEDS: GABAPENTIN 300 MG CAP PO SCH ×2 (07:41→21:06)
[2020-06-15] MEDS: HYDROcodone/APAP 7.5-325MG 1 EACH TAB PO PRN ×3 (07:41→19:39)
[2020-06-15] MEDS: FAMOTIDINE 20 MG TAB PO SCH ×2 (07:41→21:06)
[2020-06-15] MEDS: NICOTINE 14MG/24HR PATCH TRANSDERM SCH ×2 (07:41→16:19)
[2020-06-15] MEDS: predniSONE 20 MG TAB PO SCH (07:42)
[2020-06-15] MEDS: guaiFENesin-Coden 100-10MG/5ML 10 ML CUP PO PRN ×3 (07:48→18:01)
--- NOTE | 2020-06-15 08:27 | XR ---
EXAMINATION TYPE: XR chest 2V DATE OF EXAM: 06/15/2020 COMPARISON: 06/13/2020 TECHNIQUE: PA and lateral views submitted. HISTORY: Shortness of breath FINDINGS: Right upper lobe patchy infiltrate is progressed from the prior exam. Underlying neoplastic process n ot excluded. Heart size normal. Left lung clear. Hyperexpansion suggestive of COPD. No overt failure. Atherosclerotic change aorta. IMPRESSION: 1. Progressive right upper lobe patchy infiltrate correlate for pneumonia. Underlying neoplasm not ex cluded.
[2020-06-15] MEDS ORDERED: ENOXAPARIN 40 MG/0.4 ML SYRINGE SQ SCH (09:00)
[2020-06-15] MEDS: tiZANidine 4 MG TAB PO SCH ×3 (09:12→22:16)
[2020-06-15 10:18] LABS: African American GFR (CKD) >90 (>60 ml/min/1.73 sqM); Anion Gap 5 mmol/L; Blood Urea Nitrogen 12 mg/dL (7-17); Calcium 8.3 mg/dL (8.4-10.2); Carbon Dioxide 22 mmol/L (22-30); Chloride 111 mmol/L (98-107); Glucose 100 mg/dL (74-99); Non-African American GFR(CKD) >90 (>60 ml/min/1.73 sqM); Potassium 3.6 mmol/L (3.5-5.1); Sodium 138 mmol/L (137-145)
[2020-06-15 10:21] LABS: Basophils % (A) 0 %; Eosinophils # (A) 0.1 k/uL (0-0.7); Eosinophils % (A) 0 %; HCT 35.6 % (34.0-46.0); Lymphocytes # (A) 1.1 k/uL (1.0-4.8); Lymphocytes % (A) 6 %; MCH 32.1 pg (25.0-35.0); MCV 100.4 fL (80.0-100.0); Mean Platelet Volume 8.4; Monocytes # (A) 0.6 k/uL (0-1.0); Monocytes % (A) 3 %; Neutrophils # (A) 16.4 k/uL (1.3-7.7); Neutrophils % (A) 90 %; Platelet Count 314 k/uL (150-450); RBC 3.55 m/uL (3.80-5.40); RDW 12.7 % (11.5-15.5); WBC 18.3 k/uL (3.8-10.6)
[2020-06-15 10:22] LABS: HGB 11.4 gm/dL (11.4-16.0)
[2020-06-15] MEDS ORDERED: RX INFO: IV CONTRAST WAS GIVEN 1 EACH MISC MISCELLANE PRN (11:13)
[2020-06-15] MEDS: LIDOCAINE 5% PATCH TOPICAL SCH ×2 (11:49→16:20)
[2020-06-15] MEDS: LEVOFLOXACIN 500 MG TAB PO SCH (11:49)
--- NOTE | 2020-06-15 11:57 | CT ---
EXAMINATION TYPE: CT chest w con DATE OF EXAM: 06/15/2020 COMPARISON: None HISTORY: Back pain, difficulty breathing, pneumonia. CT DLP: 196.7 mGycm Automated exposure control for dose reduction was used. CONTRAST: CT scan of the chest is performed with IV Contrast, patient injected with 100 mL of Isovue 300. FINDINGS: LUNGS: There is bilateral small effusions and consolidation with extensive consolidative process invo lving the right upper lobe suggestive of pneumonia. Underlying diffuse emphysematous changes are seen and there is apical pleural thickening. MEDIASTINUM: There is a 4.9 x 4.5 cm ascending thoracic aortic aneurysm extending from the aortic nicolle t to the level of the aortic arch. Descending thoracic aorta of normal caliber. Mild atherosclerotic changes. There is coronary artery calcification. No pathologic adenopathy. OTHER: Hypertrophic and degenerative change of the spine. There is a prominent spur extending in the upper thoracic spine resulting in compression of the thecal sac. Postsurgical change involving the b reasts is noted. IMPRESSION: 1. Large area of consolidation involving the right upper lobe most typical of pneumonia. Follow-up to resolution to exclude other etiologies. 2. There is a filling defect within upper lobe pulmonary artery branch compatible with acute pulmonar y embolism. Report immediately called to the patient's nurse. Therefore changes in the right upper lo be could represent a combination of pulmonary infarction and pneumonia. Correlate clinically. 3. Ascending aortic aneurysm measuring 4.9 cm 4. COPD.
[2020-06-15] MEDS: APIXABAN 5 MG TAB PO SCH ×2 (12:15→21:06)
--- NOTE | 2020-06-15 12:16 | P.PN ---
Subjective Progress Note Date: 06/15/20 Principal diagnosis: Dyspnea, back pain, cough 49-year-old white female patient of Dr. Palomares, chronic smoker, known history of COPD, chronic neck and back pain, marijuana use, anxiety, who came into the hospital on 06/13/2020, for evaluation of cough, pleuritic chest pain, which the patient describes a sharp, brought on by coughing, increased shortness of breath. Patient's pulse ox was in the mid 80s at home, she was having increasing trouble breathing, and nebulized bronchodilators were not helping. She denies any hemoptysis. Denied any fever or chills. Chest x-ray showed patchy right upper lobe pneumonia, lab work revealed white blood cell count of 20.2, hemoglobin of 14.6, platelet count is 340, sodium is 133, potassium 3.8, chloride is 95, the rest of electrolytes and normal renal profile, lactic acid was 1.2, alk phos was 127, AST and ALT were within normal limits, troponin was less than 0.012, proBNP was 190. Patient was started on a combination of jaz thromycin and Rocephin, IV steroids, nebulized bronchodilators, and we were asked to see the patient in consultation for shortness of breath related to right upper lung pneumonia On 2019 patient seen in follow-up on medical surgical floor, she still dyspneic, but no acute distress, but diaphoretic, she remains on 2 L of oxygen pulse ox of 99%, no fever, at times slightly tachycardic, occasional cough, no chest pain, today's chest x-ray shows worsening of the right upper lobe patchy infiltrate, and these findings have progressed from yesterday's chest x-ray. Patient continues on Levaquin, calcium level did come back elevated at 0.30. White count has slightly trended down, but remains elevated still at 18.3 and today's labs. In view of these findings we obtained a CT chest with contrast which showed a large area of consolidation involving the right upper lobe most typical of pneumonia, no filling defect within the upper lobe pulmonary artery branch compatible with acute pulmonary embolism. Patient will be started on Eliquis Objective - Vital Signs Vital signs: Vital Signs Temp 98.5 F 06/15/20 07:00 Pulse 105 H 06/15/20 11:12 Resp 19 06/15/20 07:00 BP 108/80 06/15/20 07:00 Pulse Ox 99 06/15/20 07:00 Intake & Output 06/14/20 06/15/20 06/15/20 18:59 06:59 18:59 Intake Total 1000 Output Total 400 Balance 600 Intake: Intake, IV Titration 1000 Amount Sodium Chloride 0.9% 1, 1000 000 ml @ 130 mls/hr IV . Q7H42M [facility] Rx#:[id number] Output: Urine 400 Other: # Voids 3 1 - Exam GENERAL EXAM: Alert, very pleasant, 49-year-old white female, on 2 L of oxygen with pulse ox of 99%, comfortable in no apparent distress. HEAD: Normocephalic/atraumatic. EYES: Normal reaction of pupils, equal size. Conjunctiva pink, sclera white. NOSE: Clear with pink turbinates. THROAT: No erythema or exudates. NECK: No masses, no JVD, no thyroid enlargement, no adenopathy. CHEST: No chest wall deformity. Symmetrical expansion. LUNGS: Equal air entry with inspiratory crackles over right upper lobe posteriorly, and diffuse wheezes and diminished breath sounds overall CVS: Regular rate and rhythm, normal S1 and S2, no gallops, no murmurs, no rubs ABDOMEN: Soft, nontender. No hepatosplenomegaly, normal bowel sounds, no guarding or rigidity. EXTREMITIES: No clubbing, no edema, no cyanosis, 2+ pulses and upper and lower extremities. MUSCULOSKELETAL: Muscle strength and tone normal. SPINE: No scoliosis or deformity SKIN: No rashes CENTRAL NERVOUS SYSTEM: Alert and oriented -3. No focal deficits, tone is normal in all 4 extremities. PSYCHIATRIC: Alert and oriented -3. Appropriate affect. Intact judgment and insight. - Labs CBC & Chem 7: 06/15/20 09:18 06/15/20 09:18 Labs: Abnormal Lab Results - Last 24 Hours (Table) 06/13/20 06/15/20 06/15/20 Range/Units 22:23 09:18 09:18 WBC 18.3 H (3.8-10.6) k/uL RBC 3.55 L (3.80-5.40) m/uL MCV 100.4 H (80.0-100.0) fL Neutrophils # 16.4 H (1.3-7.7) k/uL Chloride 111 H (98-107) mmol/L Glucose 100 H (74-99) mg/dL Calcium 8.3 L (8.4-10.2) mg/dL Procalcitonin 0.30 H (0.02-0.09) ng/mL Microbiology - Last 24 Hours (Table) 06/13/20 22:23 Blood Culture - Preliminary Blood No Growth after 24 hours Assessment and Plan Plan: Assessment: #1. Acute hypoxic respiratory failure related to acute exacerbation of COPD, right upper lobe pneumonia, and right upper lung pulmonary embolism #2. Acute pulmonary embolism in the right upper lobe an incidental finding #3. Chronic and ongoing history of nicotine dependence #4. Chronic obstructive pulmonary disease #5. Hypertension #6. Anxiety/depression #7. Peripheral neuropathy #8. Chronic back and neck pain #9. Mild hyponatremia, with a sodium of 133, likely hypovolemic, improved with hydration Plan: CT chest with contrast reviewed with Dr. Walton, showed right upper lobe consolidation most compatible with pneumonia, continue current antibiotic covera ge, and it showed incidental finding of right upper lobe pulmonary embolism, hemodynamically patient is stable, only requiring couple liters of oxygen, no tachycardia, will start the patient on oral Eliquis. Continue bronchodilators, and oral steroids. We'll continue to follow I performed a history & physical examination of the patient and discussed their management with my nurse practitioner, Caroline Hughes. I reviewed the nurse practitioner's note and agree with the documented findings and plan of care. Lung sounds are positive for diffuse wheezes throughout the lung [place]. The findings and the impression was discussed with the patient. I attest to the documentation by the nurse practitioner. Time with Patient: Less than 30
[2020-06-15] MEDS: PRIMIDONE 50 MG TAB PO SCH ×2 (12:51→21:06)
--- NOTE | 2020-06-15 15:08 | CDI ---
Documentation Clarification Form Date: 06/15/2020 CDS: Alis Lundberg RN, CCDS Admit Date: 06/13/2020 Patient Name: Tamiko Lui ATTENTION: The Clinical Documentation Specialists (CDI) and [facility] Coding Staff appreciate your assistance in clarifying documentation. Please respond to the clarification below the line at the bottom and electronically sign. The CDI & [facility] Coding staff will review the response and follow-up if needed. Please note: Queries are made part of the Legal Health Record. If you have any questions, please contact the author of this message via ITS. Jay Jefferson MD The diagnosis of Sepsis is documented in the ED Note. History/Risk Factors: 49-year-old female presents to the ED with severe cough and chest pain when coughing. Medical History: COPD and Asthma. Admitting diagnosis: Pneumonia and COPD exacerbation. Clinical Indicators: Per ED Note Patient presented for evaluation of cough, pleuritic chest pain with coughing, fever and chills. VSS: B/P: 132/89; HR: 106; Temp: 99.4 F; RR: 24; SpO2: 88% Room Air. Labs: 06/13 Wbc 20.2, Neutrophils 17.1, Procalcitonin 0.30, CXR: 06/13 - Patchy right upper lobe pneumonia Treatment: 06/13 Azithromycin Iv x1, Rocephin IVP x1, Solumedrol IV x1, 1L 0.9NS Bolus followed by 130cc/hr., 06/14 Levaquin po., Please clarify if the Sepsis was: Present/active this admission Treated and resolved this admission Ruled out Other, please specify Clinically unable to determine SIRS Criteria (2 or more of the following may indicate SIRS): -Temperature < 96.8F (36C) or > 101.0F (38.3C) -Heart Rate > 90 bpm -Respiratory Rate > 20 breaths/min or PaCO2 < 32 mmHg -White Blood Cell Count > 12,000 or < 4,000 cells/mm3 or > 10% bands -Lactate >2.0 mmol/L (>4.0 is equivalent to septic shock) Documented in the Internal Medicine Progress note 06/15 possible sepsis, present on admission secondary to above (Last Revision: January 2018) ALEISHA
--- NOTE | 2020-06-15 20:32 | P.PN ---
Subjective Progress Note Date: 06/15/20 Principal diagnosis: 49-year-old female with history of COPD continues to smoke came in with complaints of severe cough and chest pain when coughing which is pleuritic in nature. Denied any fever chills. Patient had a low-grade fever here patient has a right upper lobe patchy infiltrate suspicious for pneumonia patient has significant bilateral rhonchi. Patient doesn't have much of wheezing is although on the patient denied any significant cough production. Patient denied any lightheadedness diaphoresis. Is presently requiring oxygen presently on 2 L of oxygen 06/15/2020 Patient is seen and evaluated in follow up and continues to be dyspneic with a cough and pain that is located on the right side of the chest and radiating to her back. Patient underwent CT of the chest which showed a large area of consolidation involving the right upper lobe most typical of pneumonia with a filling defect in the upper pulmonary artery branch compatible with an acute pulmonary embolism. Patient was initiated on eliquis. Review of systems: Constitutional: Reports generalized fatigue, no reports of fevers or chills Cardiovascular: No reports of chest pain or palpitations Respiratory: reports shortness of breath, occasional cough GI: no reports of nausea or vomiting : no reports of dysuria or retention Neurovascular: no reports of weakness or numbness Musculoskeletal: Reports right chest wall discomfort that radiates to the right upper back All medications reviewed. Objective - Vital Signs Vital signs: Vital Signs Temp 98.5 F 06/15/20 07:00 Pulse 105 H 06/15/20 11:12 Resp 19 06/15/20 07:00 BP 108/80 06/15/20 07:00 Pulse Ox 99 06/15/20 07:00 Intake & Output 06/14/20 06/15/20 06/15/20 18:59 06:59 18:59 Intake Total 1000 Output Total 400 Balance 600 Intake: Intake, IV Titration 1000 Amount Sodium Chloride 0.9% 1, 1000 000 ml @ 130 mls/hr IV . Q7H42M [facility] Rx#:[id number] Output: Urine 400 Other: # Voids 3 1 - Exam GENERAL: The patient is alert and oriented x3, not in any acute distress. Well developed, well nourished. HEENT: Pupils are round and equally reacting to light. EOMI. No scleral icterus. No conjunctival pallor. Normocephalic, atraumatic. No pharyngeal erythema. No thyromegaly. CARDIOVASCULAR: S1 and S2 present. No murmurs, rubs, or gallops. PULMONARY: Good air entry into bilateral lung [place] with diffuse bilateral rhonchi and wheezing noted ABDOMEN: Soft, nontender, nondistended, normoactive bowel sounds. No palpable organomegaly. MUSCULOSKELETAL: No joint swelling or deformity. right upper back discomfort on palpation in the mid scapular area EXTREMITIES: No cyanosis, clubbing, or pedal edema. NEUROLOGICAL: Gross neurological examination did not reveal any focal deficits. SKIN: No rashes. - Labs CBC & Chem 7: 06/15/20 09:18 06/15/20 09:18 Labs: Abnormal Lab Results - Last 24 Hours (Table) 06/13/20 06/15/20 06/15/20 Range/Units 22:23 09:18 09:18 WBC 18.3 H (3.8-10.6) k/uL RBC 3.55 L (3.80-5.40) m/uL MCV 100.4 H (80.0-100.0) fL Neutrophils # 16.4 H (1.3-7.7) k/uL Chloride 111 H (98-107) mmol/L Glucose 100 H (74-99) mg/dL Calcium 8.3 L (8.4-10.2) mg/dL Procalcitonin 0.30 H (0.02-0.09) ng/mL Microbiology - Last 24 Hours (Table) 06/13/20 22:23 Blood Culture - Preliminary Blood No Growth after 24 hours Assessment and Plan Assessment: -Shortness of breath: Secondary to possible right upper lobe pneumonia with mild COPD exacerbation patient will start on levofloxacin because of suspicion of atypical pneumonia. Patient will also be started on oral steroids and the nicotine cessation counseling was provided -possible sepsis, present on admission secondary to above -possible pulmonary embolism of the right upper lung as noted on CT, started on Eliquis -Chest and musculoskeletal from coughing Will use Toradol for pain -COPD with mild acute exacerbation -Leukocytosis secondary to pneumonia -Continued nicotine use -Hypertension -Depression -Peripheral neuropathy -GI prophylaxis with Pepcid -DVT prophylaxis with Lovenox -Mild hypovolemic hyponatremia Plan: continue current medications, management, and symptomatic treatment. Pulmonary following. To continue with steroids, antibiotics, and breathing inhalational treatments. Patient was initiated on Eliquis for PE. Will continue to monitor closely. Will repeat am labs. Further recommendations to follow. Possible discharge in 24-48 hours.
[2020-06-15] MEDS: DESVENLAFAXINE SUCCINATE 50 MG TAB.ER.24H PO SCH (21:05)
[2020-06-15] MEDS: ARIPiprazole 2 MG TAB PO SCH (21:06)
[2020-06-15] MEDS: traZODone HCL 100 MG TAB PO SCH (22:17)
[2020-06-16] MEDS: guaiFENesin-Coden 100-10MG/5ML 10 ML CUP PO PRN ×3 (02:09→17:12)
[2020-06-16] MEDS: KETOROLAC 15 MG/ML 1 ML VIAL IVP PRN ×3 (02:09→17:13)
[2020-06-16] MEDS: IPRATROPIUM-ALBUTEROL 3 ML NEB INHALATION PRN ×5 (02:31→19:21)
[2020-06-16] MEDS: SODIUM CHLORIDE 0.9% 1,000 ML IV SCH (05:41)
[2020-06-16] MEDS: SYMBICORT 80-4.5 MCG INHALER INHALATION SCH ×2 (07:13→19:21)
[2020-06-16] MEDS: HYDROcodone/APAP 7.5-325MG 1 EACH TAB PO PRN (07:29)
[2020-06-16] MEDS: GABAPENTIN 300 MG CAP PO SCH ×2 (07:29→20:03)
[2020-06-16] MEDS: FAMOTIDINE 20 MG TAB PO SCH ×2 (07:31→20:03)
[2020-06-16] MEDS: FLUTICASONE 50MCG/SPRAY NASAL 16GM EA NOSTRIL SCH (07:31)
[2020-06-16] MEDS: LEVOFLOXACIN 500 MG TAB PO SCH (07:31)
[2020-06-16] MEDS: PRIMIDONE 50 MG TAB PO SCH ×2 (07:31→20:03)
[2020-06-16] MEDS: APIXABAN 5 MG TAB PO SCH ×2 (07:31→20:02)
[2020-06-16] MEDS: NICOTINE 14MG/24HR PATCH TRANSDERM SCH (07:31)
[2020-06-16] MEDS: predniSONE 20 MG TAB PO SCH (07:31)
[2020-06-16] MEDS: tiZANidine 4 MG TAB PO SCH ×3 (07:33→20:56)
[2020-06-16] MEDS: HYDROcodone/APAP 10-325MG 1 EACH TAB PO PRN ×2 (13:23→20:08)
--- NOTE | 2020-06-16 13:50 | P.PN ---
Subjective Progress Note Date: 06/16/20 Principal diagnosis: Dyspnea, back pain, cough 49-year-old white female patient of Dr. Palomares, chronic smoker, known history of COPD, chronic neck and back pain, marijuana use, anxiety, who came into the hospital on 06/13/2020, for evaluation of cough, pleuritic chest pain, which the patient describes a sharp, brought on by coughing, increased shortness of breath. Patient's pulse ox was in the mid 80s at home, she was having increasing trouble breathing, and nebulized bronchodilators were not helping. She denies any hemoptysis. Denied any fever or chills. Chest x-ray showed patchy right upper lobe pneumonia, lab work revealed white blood cell count of 20.2, hemoglobin of 14.6, platelet count is 340, sodium is 133, potassium 3.8, chloride is 95, the rest of electrolytes and normal renal profile, lactic acid was 1.2, alk phos was 127, AST and ALT were within normal limits, troponin was less than 0.012, proBNP was 190. Patient was started on a combination of jaz thromycin and Rocephin, IV steroids, nebulized bronchodilators, and we were asked to see the patient in consultation for shortness of breath related to right upper lung pneumonia On 2019 patient seen in follow-up on medical surgical floor, she still dyspneic, but no acute distress, but diaphoretic, she remains on 2 L of oxygen pulse ox of 99%, no fever, at times slightly tachycardic, occasional cough, no chest pain, today's chest x-ray shows worsening of the right upper lobe patchy infiltrate, and these findings have progressed from yesterday's chest x-ray. Patient continues on Levaquin, calcium level did come back elevated at 0.30. White count has slightly trended down, but remains elevated still at 18.3 and today's labs. In view of these findings we obtained a CT chest with contrast which showed a large area of consolidation involving the right upper lobe most typical of pneumonia, no filling defect within the upper lobe pulmonary artery branch compatible with acute pulmonary embolism. Patient will be started on Eliquis. On 06/16/2020 patient seen in follow-up. She continues to have pleuritic chest pain on the right side with a deep breathing and coughing, no hemoptysis, afebrile, she is on 4 L of oxygen pulse ox of 94%, hemodynamically stable, no altered mentation, exertional dyspnea, no acute distress. Yesterday's computed tomography scan showed large area of consolidation involving the right upper lobe most typical for pneumonia, and a filling defect within the upper lobe pulmonary artery branch compatible with acute PE. Patient was started on oral Eliquis, vital signs have been stable overnight. Objective - Vital Signs Vital signs: Vital Signs Temp 98.4 F 06/16/20 06:57 Pulse 104 H 06/16/20 11:36 Resp 20 06/16/20 06:57 BP 103/51 06/16/20 06:57 Pulse Ox 94 L 06/16/20 06:57 Intake & Output 06/15/20 06/16/20 06/16/20 18:59 06:59 18:59 Intake Total 450 Balance 450 Intake: Intake, IV Titration 450 Amount Sodium Chloride 0.9% 1, 450 000 ml @ 130 mls/hr IV . Q7H42M [facility] Rx#:[id number] Other: # Voids 3 1 - Exam GENERAL EXAM: Alert, very pleasant, 49-year-old white female, on 4 L of oxygen with pulse ox of 94%, comfortable in no apparent distress. HEAD: Normocephalic/atraumatic. EYES: Normal reaction of pupils, equal size. Conjunctiva pink, sclera white. NOSE: Clear with pink turbinates. THROAT: No erythema or exudates. NECK: No masses, no JVD, no thyroid enlargement, no adenopathy. CHEST: No chest wall deformity. Symmetrical expansion. LUNGS: Equal air entry with inspiratory crackles over right upper lobe posteriorly, and diffuse wheezes and diminished breath sounds overall CVS: Regular rate and rhythm, normal S1 and S2, no gallops, no murmurs, no rubs ABDOMEN: Soft, nontender. No hepatosplenomegaly, normal bowel sounds, no guarding or rigidity. EXTREMITIES: No clubbing, no edema, no cyanosis, 2+ pulses and upper and lower extremities. MUSCULOSKELETAL: Muscle strength and tone normal. SPINE: No scoliosis or deformity SKIN: No rashes CENTRAL NERVOUS SYSTEM: Alert and oriented -3. No focal deficits, tone is normal in all 4 extremities. PSYCHIATRIC: Alert and oriented -3. Appropriate affect. Intact judgment and insight. - Labs CBC & Chem 7: 06/15/20 09:18 06/15/20 09:18 Labs: Microbiology - Last 24 Hours (Table) 06/15/20 22:25 Gram Stain - Preliminary Sputum Sputum Culture - Preliminary 06/13/20 22:23 Blood Culture - Preliminary Blood No Growth after 48 hours Assessment and Plan Plan: Assessment: #1. Acute hypoxic respiratory failure related to acute exacerbation of COPD, right upper lobe pneumonia, and right upper lung pulmonary embolism #2. Acute pulmonary embolism in the right upper lobe an incidental finding #3. Chronic and ongoing history of nicotine dependence #4. Chronic obstructive pulmonary disease #5. Hypertension #6. Anxiety/depression #7. Peripheral neuropathy #8. Chronic back and neck pain #9. Mild hyponatremia, with a sodium of 133, likely hypovolemic, improved with hydration Plan: Continue current antibiotic coverage, continue follow-up chest x-ray in the morning, continue nebulized bronchodilators and steroids. Increase [place] to 10 mg every 6 hours as needed for pain, and continue to closely follow I performed a history & physical examination of the patient and discussed their management with my nurse practitioner, Caroline Hughes. I reviewed the nurse practitioner's note and agree with the documented findings and plan of care. Lung sounds are positive for diffuse wheezes throughout the lung mo[place]. The findings and the impression was discussed with the patient. I attest to the documentation by the nurse practitioner. Time with Patient: Less than 30
--- NOTE | 2020-06-16 15:03 | P.PN ---
Subjective Progress Note Date: 06/16/20 Principal diagnosis: 49-year-old female with history of COPD continues to smoke came in with complaints of severe cough and chest pain when coughing which is pleuritic in nature. Denied any fever chills. Patient had a low-grade fever here patient has a right upper lobe patchy infiltrate suspicious for pneumonia patient has significant bilateral rhonchi. Patient doesn't have much of wheezing is although on the patient denied any significant cough production. Patient denied any lightheadedness diaphoresis. Is presently requiring oxygen presently on 2 L of oxygen 06/15/2020 Patient is seen and evaluated in follow up and continues to be dyspneic with a cough and pain that is located on the right side of the chest and radiating to her back. Patient underwent CT of the chest which showed a large area of consolidation involving the right upper lobe most typical of pneumonia with a filling defect in the upper pulmonary artery branch compatible with an acute pulmonary embolism. Patient was initiated on eliquis. Review of systems: Constitutional: Reports generalized fatigue, no reports of fevers or chills Cardiovascular: No reports of chest pain or palpitations Respiratory: reports shortness of breath, occasional cough GI: no reports of nausea or vomiting : no reports of dysuria or retention Neurovascular: no reports of weakness or numbness Musculoskeletal: Reports right chest wall discomfort that radiates to the right upper back All medications reviewed. 06/16/2020 Patient is seen in follow-up continues to have some right chest wall tenderness and back tenderness with cough and deep breathing. She became hypoxic in the low 80s sometime this morning prior to receiving a breathing treatment and getting up to the bathroom and oxygen was increased to 4 L via nasal cannula. She does not normally wear oxygen at home. Discussed with nursing staff about weaning oxygen and increasing activity as tolerated. Patient continues to have pain and discomfort of the right upper lobe area and medications have been adjusted. Patient was found to have a PE and has been started on Eliquis. Discussed with case management about verifying coverage and insurance is requiring a prior auth and is currently pending at this time. Pulmonary following. Review of systems: Constitutional: Reports fatigue, no reports of fever, or chills Cardiovascular: Reports chest wall pain in the right upper area with no reports of palpitations Respiratory: Reports intermittent shortness of breath and cough with pleuritic discomfort GI: No reports of nausea, vomiting, or diarrhea : No reports of dysuria or retention Neurovascular: No reports of weakness or numbness All medications have been reviewed Objective - Vital Signs Vital signs: Vital Signs Temp 98.4 F 06/16/20 06:57 Pulse 104 H 06/16/20 11:36 Resp 20 06/16/20 06:57 BP 103/51 06/16/20 06:57 Pulse Ox 94 L 06/16/20 06:57 Intake & Output 06/15/20 06/16/20 06/16/20 18:59 06:59 18:59 Intake Total 450 Balance 450 Intake: Intake, IV Titration 450 Amount Sodium Chloride 0.9% 1, 450 000 ml @ 130 mls/hr IV . Q7H42M [facility] Rx#:[id number] Other: # Voids 3 1 - Exam GENERAL: The patient is alert and oriented x3, not in any acute distress. Lethargic but easily arousable. Well developed, well nourished. HEENT: Pupils are round and equally reacting to light. EOMI. No scleral icterus. No conjunctival pallor. Normocephalic, atraumatic. No pharyngeal erythema. No thyromegaly. CARDIOVASCULAR: S1 and S2 present. No murmurs, rubs, or gallops. PULMONARY: Good air entry into bilateral lung [place] with diffuse bilateral rh onchi noted ABDOMEN: Soft, nontender, nondistended, normoactive bowel sounds. No palpable organomegaly. MUSCULOSKELETAL: No joint swelling or deformity. right upper back discomfort on palpation in the mid scapular area EXTREMITIES: No cyanosis, clubbing, or pedal edema. NEUROLOGICAL: Gross neurological examination did not reveal any focal deficits. SKIN: No rashes. - Labs CBC & Chem 7: 06/15/20 09:18 06/15/20 09:18 Labs: Microbiology - Last 24 Hours (Table) 06/15/20 22:25 Gram Stain - Preliminary Sputum Sputum Culture - Preliminary 06/13/20 22:23 Blood Culture - Preliminary Blood No Growth after 48 hours Assessment and Plan Assessment: -Shortness of breath: Secondary to possible right upper lobe pneumonia with mild COPD exacerbation, patient currently maintained on Levaquin along with oral steroids and breathing inhalational treatments. Pulmonary following -possible sepsis, present on admission secondary to above -possible pulmonary embolism of the right upper lung as noted on CT, started on Eliquis -Chest and musculoskeletal pain from coughing Will use Toradol for pain -COPD with mild acute exacerbation -Leukocytosis secondary to pneumonia, improving -Continued nicotine use -Hypertension -Depression -Peripheral neuropathy -GI prophylaxis with Pepcid -DVT prophylaxis with Eliquis -Mild hypovolemic hyponatremia, improved current sodium is 138. IV fluids discontinued. Plan: continue current medications, management, and symptomatic treatment. Pulmonary following. To continue with steroids, antibiotics, and breathing inhalational treatments. Patient was initiated on Eliquis for PE. Case management consulted to verify coverage and anticoagulation is requiring prior authorization. Discussed with nursing staff about weaning off oxygen and increasing activity as tolerated. Will continue to monitor closely. Will repeat am labs. Further recommendations to follow. Possible discharge in 24-48 hours.
[2020-06-16] MEDS: DESVENLAFAXINE SUCCINATE 50 MG TAB.ER.24H PO SCH (20:03)
[2020-06-16] MEDS: traZODone HCL 100 MG TAB PO SCH (20:03)
[2020-06-16] MEDS: ARIPiprazole 2 MG TAB PO SCH (20:03)
[2020-06-17] MEDS: KETOROLAC 15 MG/ML 1 ML VIAL IVP PRN ×2 (00:51→14:17)
[2020-06-17] MEDS: IPRATROPIUM-ALBUTEROL 3 ML NEB INHALATION PRN ×4 (03:22→15:15)
[2020-06-17] MEDS: HYDROcodone/APAP 10-325MG 1 EACH TAB PO PRN ×2 (04:11→11:08)
[2020-06-17] MEDS: SYMBICORT 80-4.5 MCG INHALER INHALATION SCH (07:16)
[2020-06-17 07:37] VITALS: BP 119/85; RESP 17; TEMP 98.2
[2020-06-17 07:56] LABS: Basophils % (A) 0 %; Eosinophils # (A) 0.2 k/uL (0-0.7); Eosinophils % (A) 1 %; HCT 39.5 % (34.0-46.0); HGB 12.3 gm/dL (11.4-16.0); Lymphocytes # (A) 1.4 k/uL (1.0-4.8); Lymphocytes % (A) 7 %; MCHC 31.3 g/dL (31.0-37.0); MCV 99.1 fL (80.0-100.0); Mean Platelet Volume 7.7; Monocytes # (A) 0.8 k/uL (0-1.0); Monocytes % (A) 4 %; Neutrophils # (A) 16.7 k/uL (1.3-7.7); Neutrophils % (A) 87 %; Platelet Count 414 k/uL (150-450); RBC 3.98 m/uL (3.80-5.40); RDW 12.7 % (11.5-15.5); WBC 19.3 k/uL (3.8-10.6)
[2020-06-17] MEDS: LIDOCAINE 5% PATCH TOPICAL SCH (08:19)
[2020-06-17] MEDS: GABAPENTIN 300 MG CAP PO SCH (08:19)
[2020-06-17] MEDS: FAMOTIDINE 20 MG TAB PO SCH (08:19)
[2020-06-17] MEDS: APIXABAN 5 MG TAB PO SCH (08:19)
[2020-06-17] MEDS: predniSONE 20 MG TAB PO SCH (08:19)
[2020-06-17] MEDS: NICOTINE 14MG/24HR PATCH TRANSDERM SCH (08:19)
[2020-06-17] MEDS: PRIMIDONE 50 MG TAB PO SCH (08:19)
[2020-06-17] MEDS: guaiFENesin-Coden 100-10MG/5ML 10 ML CUP PO PRN (08:19)
[2020-06-17] MEDS: FLUTICASONE 50MCG/SPRAY NASAL 16GM EA NOSTRIL SCH (08:20)
[2020-06-17] MEDS: tiZANidine 4 MG TAB PO SCH (08:20)
--- NOTE | 2020-06-17 08:26 | XR ---
EXAMINATION TYPE: XR chest 2V DATE OF EXAM: 06/17/2020 COMPARISON: 06/15/2020 HISTORY: Follow-up pneumonia TECHNIQUE: Frontal and lateral views of the chest are obtained. FINDINGS: Coarse infiltrate throughout the right lung is essentially unchanged. There may be slightly larger sm all pleural effusion. No evidence for pneumothorax. No pleural effusion. The cardiac silhouette size is within normal limits. The osseous structures are grossly intact. IMPRESSION: 1. Coarse infiltrate throughout the right lung is essentially unchanged. There may be slightly large r small pleural effusion.
[2020-06-17 08:30] LABS: African American GFR (CKD) >90 (>60 ml/min/1.73 sqM); Anion Gap 6 mmol/L; Blood Urea Nitrogen 12 mg/dL (7-17); Carbon Dioxide 27 mmol/L (22-30); Chloride 104 mmol/L (98-107); Glucose 85 mg/dL (74-99); Non-African American GFR(CKD) 81 (>60 ml/min/1.73 sqM); Potassium 3.4 mmol/L (3.5-5.1); Sodium 137 mmol/L (137-145)
[2020-06-17] MEDS ORDERED: POTASSIUM CHLORIDE ER 20 MEQ TAB.ER PO STA (09:44)
--- NOTE | 2020-06-17 11:05 | P.PN ---
Subjective Progress Note Date: 06/17/20 Principal diagnosis: Dyspnea, back pain, cough 49-year-old white female patient of Dr. Palomares, chronic smoker, known history of COPD, chronic neck and back pain, marijuana use, anxiety, who came into the hospital on 06/13/2020, for evaluation of cough, pleuritic chest pain, which the patient describes a sharp, brought on by coughing, increased shortness of breath. Patient's pulse ox was in the mid 80s at home, she was having increasing trouble breathing, and nebulized bronchodilators were not helping. She denies any hemoptysis. Denied any fever or chills. Chest x-ray showed patchy right upper lobe pneumonia, lab work revealed white blood cell count of 20.2, hemoglobin of 14.6, platelet count is 340, sodium is 133, potassium 3.8, chloride is 95, the rest of electrolytes and normal renal profile, lactic acid was 1.2, alk phos was 127, AST and ALT were within normal limits, troponin was less than 0.012, proBNP was 190. Patient was started on a combination of jaz thromycin and Rocephin, IV steroids, nebulized bronchodilators, and we were asked to see the patient in consultation for shortness of breath related to right upper lung pneumonia On 2019 patient seen in follow-up on medical surgical floor, she still dyspneic, but no acute distress, but diaphoretic, she remains on 2 L of oxygen pulse ox of 99%, no fever, at times slightly tachycardic, occasional cough, no chest pain, today's chest x-ray shows worsening of the right upper lobe patchy infiltrate, and these findings have progressed from yesterday's chest x-ray. Patient continues on Levaquin, calcium level did come back elevated at 0.30. White count has slightly trended down, but remains elevated still at 18.3 and today's labs. In view of these findings we obtained a CT chest with contrast which showed a large area of consolidation involving the right upper lobe most typical of pneumonia, no filling defect within the upper lobe pulmonary artery branch compatible with acute pulmonary embolism. Patient will be started on Eliquis. On 06/16/2020 patient seen in follow-up. She continues to have pleuritic chest pain on the right side with a deep breathing and coughing, no hemoptysis, afebrile, she is on 4 L of oxygen pulse ox of 94%, hemodynamically stable, no altered mentation, exertional dyspnea, no acute distress. Yesterday's computed tomography scan showed large area of consolidation involving the right upper lobe most typical for pneumonia, and a filling defect within the upper lobe pulmonary artery branch compatible with acute PE. Patient was started on oral Eliquis, vital signs have been stable overnight. On 06/17/2020 patient seen in follow-up on the general medical surgical floor, she is more comfortable today, right-sided pleuritic chest pain has signifi cantly subsided, yesterday we increased patient's dose of [place] to 10 mg every 6 hours, and patient is more comfortable on today's exam, no worsening dyspnea, patient remains on 2 L of oxygen pulse ox of 93%, she has had no fever or chills. Today's labs have been reviewed, blood cell count is 19.3, hemoglobin is 12.3, sodium is 137, potassium 3.4. Electrolytes and renal profile were within normal limits. Sputum Gram stain showed many probably mononuclear leukocytes, rare gram-positive cocci, rare gram-negative bacilli, cultures pending, but clinically patient has remained stable. No hemoptysis, she is on combination of Levaquin, prednisone, and nebulized bronchodilators. Objective - Vital Signs Vital signs: Vital Signs Temp 98.2 F 06/17/20 06:51 Pulse 90 06/17/20 08:04 Resp 17 06/17/20 06:51 BP 119/85 06/17/20 06:51 Pulse Ox 93 L 06/17/20 06:51 Intake & Output 06/16/20 06/17/20 06/17/20 18:59 06:59 18:59 Intake Total 100 Balance 100 Intake: Oral 100 Other: # Voids 2 2 - Exam GENERAL EXAM: Alert, very pleasant, 49-year-old white female, on 2 L of oxygen with pulse ox of 93%, comfortable in no apparent distress. HEAD: Normocephalic/atraumatic. EYES: Normal reaction of pupils, equal size. Conjunctiva pink, sclera white. NOSE: Clear with pink turbinates. THROAT: No erythema or exudates. NECK: No masses, no JVD, no thyroid enlargement, no adenopathy. CHEST: No chest wall deformity. Symmetrical expansion. LUNGS: Equal air entry with inspiratory crackles over right upper lobe posteriorly CVS: Regular rate and rhythm, normal S1 and S2, no gallops, no murmurs, no rubs ABDOMEN: Soft, nontender. No hepatosplenomegaly, normal bowel sounds, no guarding or rigidity. EXTREMITIES: No clubbing, no edema, no cyanosis, 2+ pulses and upper and lower extremities. MUSCULOSKELETAL: Muscle strength and tone normal. SPINE: No scoliosis or deformity SKIN: No rashes CENTRAL NERVOUS SYSTEM: Alert and oriented -3. No focal deficits, tone is normal in all 4 extremities. PSYCHIATRIC: Alert and oriented -3. Appropriate affect. Intact judgment and insight. - Labs CBC & Chem 7: 06/17/20 07:34 06/17/20 07:34 Labs: Abnormal Lab Results - Last 24 Hours (Table) 06/17/20 06/17/20 Range/Units 07:34 07:34 WBC 19.3 H (3.8-10.6) k/uL Neutrophils # 16.7 H (1.3-7.7) k/uL Potassium 3.4 L (3.5-5.1) mmol/L Microbiology - Last 24 Hours (Table) 06/13/20 22:23 Blood Culture - Preliminary Blood No Growth after 72 hours 06/15/20 22:25 Gram Stain - Preliminary Sputum Sputum Culture - Preliminary Assessment and Plan Plan: Assessment: #1. Acute hypoxic respiratory failure related to acute exacerbation of COPD, right upper lobe pneumonia, and right upper lung pulmonary embolism #2. Acute pulmonary embolism in the right upper lobe an incidental finding #3. Chronic and ongoing history of nicotine dependence #4. Chronic obstructive pulmonary disease #5. Hypertension #6. Anxiety/depression #7. Peripheral neuropathy #8. Chronic back and neck pain #9. Mild hyponatremia, with a sodium of 133, likely hypovolemic, improved with hydration Plan: Chest x-ray has been reviewed, showing stable coarse infiltrates throughout the right lung, clinically patient is stable, afebrile, no acute events overnight, no altered mentation, pleural chest pain has subsided, no hemoptysis, vital signs are stable. From pulmonary perspective patient can be considered for discharge home 10 day course of oral Augmentin, prednisone, and nebulized b ronchodilators and outpatient follow-up in 7-10 days. I performed a history & physical examination of the patient and discussed their management with my nurse practitioner, Caroline Hughes. I reviewed the nurse practitioner's note and agree with the documented findings and plan of care. Lung sounds are positive for diffuse wheezes throughout the lung moctezuma. The findings and the impression was discussed with the patient. I attest to the documentation by the nurse practitioner. Time with Patient: Less than 30
[2020-06-17] MEDS: LEVOFLOXACIN 500 MG TAB PO SCH (12:13)
--- NOTE | 2020-06-17 14:04 | P.DS ---
Providers Date of admission: 06/13/20 22:37 Expected date of discharge: 06/17/20 Attending physician: Reagan Acosta Consults: 06/14/20 10:57 Consult Physician Urgent Consulting Provider: Edward Walton Reason/Comments: shortness of breath Do you want consulting provider notified?: Yes Primary care physician: Isael Palomares [facility] Course: Final diagnosis -Shortness of breath: Secondary to possible right upper lobe pneumonia with mild COPD exacerbation -possible sepsis, present on admission secondary to above -possible pulmonary embolism of the right upper lung as noted on CT, started on Eliquis -Chest and musculoskeletal pain from coughing -COPD with mild acute exacerbation -Leukocytosis secondary to pneumonia, improving -Continued nicotine use -Hypertension -Depression -Peripheral neuropathy -GI prophylaxis with Pepcid -DVT prophylaxis with Eliquis -Mild hypovolemic hyponatremia, improved Discharge disposition Patient is being discharged in a stable condition with guarded prognosis to home. Patient will follow-up with Dr. Alis Palomares in the outpatient setting upon discharge. Patient will also follow-up with pulmonary Dr. Ferraro in 7-10 days. Patient will continue on oral antibiotics in the form of Augmentin twice daily for the next 7 days to complete the course. Patient will also continue on a prednisone taper. Patient is to continue with [place] 10 mg twice daily for the next 5 days and then decrease the dose to 5 mg twice daily thereafter. Total time taken is greater than 35 minutes. History of present illness This is a 49-year-old female who was recently admitted with history of COPD and was having worsening shortness of breath along with a severe cough and chest pain that was pleuritic in nature and was being closely monitored. Patient was initiated on IV antibiotics along with IV steroids and breathing inhalational treatments. Patient continued to have extreme dyspnea requiring oxygen and also upper right lobe chest pain that radiated to her back. Patient underwent a CTA with an incidental finding of a pulmonary embolism and was started on Eliquis. Patient will continue with anticoagulant 10 mg twice daily for the next 5 days and then instructed to decrease dose to 5 mg twice daily thereafter. Patient will continue on oral antibiotics in the form of Augmentin twice daily for the next 7 days to complete the course along with a prednisone taper. Patient instructed continue with bronchodilators and will require oxygen upon discharge as she continued to desat into the 80s on room air. Patient instructed and had a lengthy discussion with the patient about refraining from any tobacco use and absolutely no smoking around the oxygen tanks. Patient states she verbalized understanding. Patient will follow up with pulmonary in the outpatient setting in 7-10 days. Patient also instructed to follow-up with her primary care provider upon discharge. Currently no reports of chest pain, worsening s hortness of breath, or palpitations. Patient is afebrile. No reports of nausea or vomiting and patient is tolerating diet. Patient will be discharged today. On exam vital signs are stable. Temp is 98.2F, pulse is 94, respirations are 17, blood pressure is 119/85, oxygen saturation is 93-94 % on 2 L via nasal cannula. Cardio S1, S2 are muffled. Respiratory system shows diminished breath sounds at the bases with some scattered rhonchi and mild wheezing on expiration noted. Abdomen is soft and nontender. Nervous system shows no focal deficits. Please refer to medication reconciliation sheet for a list of medications. Patient Condition at Discharge: Stable Plan - Discharge Summary Discharge Rx Participant: Yes New Discharge Prescriptions: New Apixaban [Eliquis Starter Pack (for VTE)] 0 mg PO DIRECTED 30 Days #1 pack Amoxic-Pot Clav 875-125Mg [Augmentin 875-125] 1 tab PO Q12HR 7 Days #14 tab Lidocaine 5% Patch [Lidoderm 5% Patch] 1 patch TOPICAL DAILY PRN #20 patch PRN Reason: Pain HYDROcodone/APAP 10-325MG [[place] 10-325] 1 each PO Q6H PRN #12 tab PRN Reason: Pain predniSONE 10 mg PO DIRECTED #30 tab guaiFENesin-Coden 100-10MG/5ML [Robitussin AC] 10 ml PO Q6H PRN #120 ml PRN Reason: Cough Continue tiZANidine [Zanaflex] 4 mg PO TID Primidone [Mysoline] 50 - 100 mg PO HS Fluticasone Nasal [place] [Flonase Nasal [place]] 2 spr EA NOSTRIL DAILY Cyanocobalamin [Vitamin B-12 Injection] 1,000 mcg IM Q60D Desvenlafaxine [Pristiq ER] 100 mg PO HS Desvenlafaxine Succinate [Pristiq ER] 50 mg PO HS Butalbital/Aspirin/Caffeine [Xrylbv-Inceldm-Dmeahrev 50-325-40 mg] 1 tab PO Q8H PRN PRN Reason: Headache ARIPiprazole [Abilify] 2 mg PO HS Albuterol Sulfate [Ventolin HFA] 2 puff INHALATION RT-Q6H PRN PRN Reason: Shortness Of Breath Fluticasone Propion/Salmeterol [[place] 250-50 Inhub] 1 puff INHALATION RT-BID Ipratropium-Albuterol Nebulize [Duoneb 0.5 mg-3 mg/3 ml Soln] 3 ml INHALATION RT-QID Gabapentin [Neurontin] 600 mg PO BID Polyethylene Glycol 3350 [Miralax] 17 gm PO DAILY traZODone HCL 100 mg PO HS Discontinued HYDROcodone/APAP 7.5-325MG [[place] 7.5-325] 1 tab PO Q6H PRN PRN Reason: Pain amLODIPine [Norvasc] 10 mg PO DAILY Discharge Medication List tiZANidine [Zanaflex] 4 mg PO TID 02/12/18 [History] ARIPiprazole [Abilify] 2 mg PO HS 11/30/19 [History] Butalbital/Aspirin/Caffeine [Pjoxcr-Sxvfyqg-Rstmbuko 50-325-40 mg] 1 tab PO Q8H PRN 11/30/19 [History] Cyanocobalamin [Vitamin B-12 Injection] 1,000 mcg IM Q60D 11/30/19 [History] Desvenlafaxine Succinate [Pristiq ER] 50 mg PO HS 11/30/19 [History] Desvenlafaxine [Pristiq ER] 100 mg PO HS 11/30/19 [History] Fluticasone Nasal [place] [Flonase Nasal [place]] 2 spr EA NOSTRIL DAILY 11/30/19 [History] Primidone [Mysoline] 50 - 100 mg PO HS 11/30/19 [History] Albuterol Sulfate [Ventolin HFA] 2 puff INHALATION RT-Q6H PRN 06/14/20 [History] Fluticasone Propion/Salmeterol [[place] 250-50 Inhub] 1 puff INHALATION RT-BID 06/14/20 [History] Gabapentin [Neurontin] 600 mg PO BID 06/14/20 [History] Ipratropium-Albuterol Nebulize [Duoneb 0.5 mg-3 mg/3 ml Soln] 3 ml INHALATION RT-QID 06/14/20 [History] Polyethylene Glycol 3350 [Miralax] 17 gm PO DAILY 06/14/20 [History] traZODone HCL 100 mg PO HS 06/14/20 [History] Apixaban [Eliquis Starter Pack (for VTE)] 0 mg PO DIRECTED 30 Days #1 pack 06/16/20 [Rx] Amoxic-Pot Clav 875-125Mg [Augmentin 875-125] 1 tab PO Q12HR 7 Days #14 tab 06/17/20 [Rx] HYDROcodone/APAP 10-325MG [[place] 10-325] 1 each PO Q6H PRN #12 tab 06/17/20 [Rx] Lidocaine 5% Patch [Lidoderm 5% Patch] 1 patch TOPICAL DAILY PRN #20 patch 06/17/20 [Rx] guaiFENesin-Coden 100-10MG/5ML [Robitussin AC] 10 ml PO Q6H PRN #120 ml 06/17/20 [Rx] predniSONE 10 mg PO DIRECTED #30 tab 06/17/20 [Rx] Follow up Appointment(s)/Referral(s): [facility] [NON-STAFF] - As Needed (oxygen) Isael Palomares DO [Primary Care Provider] - 06/20/20 11:15 am () Yovana Ferraro MD [STAFF PHYSICIAN] - 06/29/20 3:15 pm Activity/Diet/Wound Care/Special Instructions: Activity Limited until follow-up Follow-up with primary care provider upon discharge Continue with antibiotics for 7 days Continue prednisone taper Follow-up with pulmonary in the outpatient setting in 7-10 days Continue with Eliquis 10 mg twice daily for the next 5 days and then titrate the dose to 5 mg twice daily thereafter Continue current diet Continue to avoid tobacco use Do not smoke around any oxygen Discharge Disposition: HOME SELF-CARE
[2020-06-17 15:18] VITALS: PULSE 84
== END 2020-06-17 16:27 | disposition home or self-care (01) | DRG 871 ==
LOC: EC 21:56 → 4SSUR 22:37
PROVIDERS: ADMIT Hospitalist; ATTEND Hospitalist
DX: A41.9 Sepsis, unspecified organism (principal); J18.9 Pneumonia, unspecified organism; J96.01 Acute respiratory failure with hypoxia; I26.99 Other pulmonary embolism without acute cor pulmonale; J44.0 Chronic obstructive pulmonary disease with (acute) lower respiratory infection; J44.1 Chronic obstructive pulmonary disease with (acute) exacerbation; E87.1 Hypo-osmolality and hyponatremia; F41.9 Anxiety disorder, unspecified; F32.9 Major depressive disorder, single episode, unspecified; G62.9 Polyneuropathy, unspecified; F17.210 Nicotine dependence, cigarettes, uncomplicated; I10 Essential (primary) hypertension; E86.1 Hypovolemia; R07.89 Other chest pain; G89.29 Other chronic pain; M54.9 Dorsalgia, unspecified; M54.2 Cervicalgia; Z79.52 Long term (current) use of systemic steroids; Z79.899 Other long term (current) drug therapy; Z88.8 Allergy status to other drugs, medicaments and biological substances; Z90.49 Acquired absence of other specified parts of digestive tract; Z90.89 Acquired absence of other organs; Z98.890 Other specified postprocedural states; Z90.710 Acquired absence of both cervix and uterus
CPT/HCPCS: 36415; 71046; 71260; 80048; 80053; 81003; 83605; 83880; 84145; 84484; 85025; 85610; 85730; 87040; 87070; 87205; 93005; 94640; 94760; 96361; 96365; 96375; 99285

== ENCOUNTER → 2020-09-05 | Outpatient (CLI) | payer OTHER ==
[2020-09-05 12:11] LABS: Basophils # (A) 0.1 k/uL (0-0.2); Basophils % (A) 1 %; Eosinophils # (A) 0.2 k/uL (0-0.7); Eosinophils % (A) 2 %; HCT 44.3 % (34.0-46.0); HGB 14.9 gm/dL (11.4-16.0); Lymphocytes # (A) 1.9 k/uL (1.0-4.8); Lymphocytes % (A) 21 %; MCH 32.4 pg (25.0-35.0); MCHC 33.6 g/dL (31.0-37.0); MCV 96.6 fL (80.0-100.0); Mean Platelet Volume 7.7; Monocytes # (A) 0.6 k/uL (0-1.0); Monocytes % (A) 6 %; Neutrophils # (A) 6.1 k/uL (1.3-7.7); Neutrophils % (A) 69 %; Platelet Count 278 k/uL (150-450); RBC 4.59 m/uL (3.80-5.40); RDW 13.6 % (11.5-15.5)
== END | disposition home or self-care (01) ==
LOC: LABWHC1 11:21
PROVIDERS: ATTEND Family Medicine
DX: R79.9 Abnormal finding of blood chemistry, unspecified (principal)
CPT/HCPCS: 36415; 85025

== ENCOUNTER 2021-03-27 12:54 | Inpatient (IN) | payer OTHER ==
[2021-03-27] MEDS ORDERED: SODIUM CHLORIDE 0.9% 500 ML 500 ML IV STA (14:05)
[2021-03-27] MEDS ORDERED: IPRATROPIUM-ALBUTEROL 3 ML NEB INHALATION STA (14:05)
[2021-03-27] MEDS ORDERED: methylPREDNISolone SOD SUCCI 125 MG/2 ML VIAL IV STA (14:05)
--- NOTE | 2021-03-27 14:08 | ED ---
SOB HPI - General Chief Complaint: Shortness of Breath Stated Complaint: COPD, SOB Time Seen by Provider: 03/27/21 13:59 Source: patient Mode of arrival: wheelchair Limitations: physical limitation - History of Present Illness Initial Comments: 50-year-old female with oxygen-dependent COPD presents emergency Department with a chief complaint of shortness of breath. Patient reports she saw the pulmonary physician who started her on steroids and antibiotics. Patient reports there is no significant improvement in symptoms. States there is an increased exertional dyspnea. She used 2 DuoNeb treatments earlier this morning with no significant improvement in symptoms. She denies any chest but feels tightness. She also reports diffuse bilateral wheezing. She denies any fevers or chills. Reports history of COPD exacerbations and this will feels just like it. Patient has history of pulmonary embolism is currently on eliquis. - Related Data Home Medications Medication Instructions Recorded Confirmed Butalbital/Aspirin/Caffeine 1 tab PO Q8H PRN 11/30/19 03/27/21 [Avlmzs-Zuirnoj-Wxwfsdbe 50-325-40 mg] Cyanocobalamin [Vitamin B-12 1,000 mcg IM Q28D 11/30/19 03/27/21 Injection] Desvenlafaxine Succinate [Pristiq 50 mg PO HS 11/30/19 03/27/21 ER] Desvenlafaxine [Pristiq ER] 100 mg PO HS 11/30/19 03/27/21 Primidone [Mysoline] 50 mg PO HS 11/30/19 03/27/21 Albuterol Sulfate [Ventolin HFA] 2 puff INHALATION RT-Q6H PRN 06/14/20 03/27/21 Fluticasone Propion/Salmeterol 1 puff INHALATION RT-BID 06/14/20 03/27/21 [Wixela 250-50 Inhub] Ipratropium-Albuterol Nebulize 3 ml INHALATION RT-Q4H PRN 06/14/20 03/27/21 [Duoneb 0.5 mg-3 mg/3 ml Soln] traZODone HCL 200 mg PO HS 06/14/20 03/27/21 ARIPiprazole [Abilify] 10 mg PO HS 03/27/21 03/27/21 Apixaban [Eliquis] 5 mg PO BID 03/27/21 03/27/21 Allergies Allergy/AdvReac Type Severity Reaction Status Date / Time amitriptyline [From Elavil] Allergy Unknown Verified 03/27/21 12:59 pregabalin [From Lyrica] Allergy Unknown Verified 03/27/21 12:59 Review of Systems ROS Statement: Those systems with pertinent positive or pertinent negative responses have been documented in the HPI. ROS Other: All systems not noted in ROS Statement are negative. Past Medical History Past Medical History: Asthma, COPD Additional Past Medical History / Comment(s): anxiety, neuropathy rt side, back and neck pain History of Any Multi-Drug Resistant Organisms: None Reported Past Surgical History: Adenoidectomy, Cholecystectomy, Hysterectomy, Tonsillectomy Additional Past Surgical History / Comment(s): ablation to back, brain aneurysm Past Psychological History: No Psychological Hx Reported Smoking Status: Current every day smoker Past Alcohol Use History: Rare Past Drug Use History: Marijuana - Past Family History Mother Family Medical History: No Reported History General Exam Limitations: physical limitation General appearance: alert, in no apparent distress Head exam: Present: atraumatic, normocephalic, normal inspection Eye exam: Present: normal appearance, PERRL, EOMI Pupils: Present: normal accommodation ENT exam: Present: normal exam, normal oropharynx, mucous membranes moist Neck exam: Present: normal inspection, full ROM. Absent: tenderness, lymphadenopathy Respiratory exam: Present: respiratory distress, wheezes (Diffuse bilateral wheezing), decreased breath sounds, prolonged expiratory Cardiovascular Exam: Present: regular rate, normal rhythm, normal heart sounds. Absent: systolic murmur GI/Abdominal exam: Present: soft. Absent: distended, tenderness, guarding Extremities exam: Present: normal inspection, full ROM, normal capillary refill. Absent: tenderness, pedal edema Back exam: Present: normal inspection, full ROM Neurological exam: Present: alert, oriented X3 Psychiatric exam: Present: normal affect, normal mood Skin exam: Present: warm, dry, intact, normal color Course Vital Signs 03/27/21 03/27/21 03/27/21 12:55 14:20 14:38 Temperature 97.9 F Pulse Rate 102 H 90 90 Respiratory 18 Rate Blood Pressure 137/94 O2 Sat by Pulse 95 Oximetry 03/27/21 03/27/21 16:37 16:47 Temperature 98.0 F Pulse Rate 87 Respiratory 20 20 Rate Blood Pressure 129/91 O2 Sat by Pulse 98 Oximetry Medical Decision Making - Medical Decision Making 50-year-old female with oxygen-dependent COPD presents emergency Department with a chief complaint of shortness of breath. On physical examination, patient has respiratory retractions along with diffuse bilateral wheezing. She was on 2 L here 95% of oxygen. Patient was given 2 DuoNeb treatments in addition to 125 mg a salmeterol. On reevaluation, her symptoms improved. The wheezing had also improved. CBC showed mild leukocytosis of 11.5. CMP unremarkable. Coags and d-dimer within normal limits. Patient did have noted a troponin 0.114. She has never appeared to have an elevated troponin before. The EKG showed no acute ischemic changes. CT of the chest was performed which showed no signs of p ulmonary embolism. She does have emphysematous changes. Patient will be started on aspirin and Lipitor. She will be admitted for further medical management. Case discussed with Dr. Tinoco. Admitting physician is Dr. Mcelroy. Cardiology consult. - Lab Data Result diagrams: 03/27/21 14:29 03/27/21 14:29 Lab Results 03/27/21 03/27/21 03/27/21 Range/Units 14:29 14:29 14:29 WBC 11.5 H (3.8-10.6) k/uL RBC 4.30 (3.80-5.40) m/uL Hgb 14.4 (11.4-16.0) gm/dL Hct 41.3 (34.0-46.0) % MCV 96.1 (80.0-100.0) fL MCH 33.6 (25.0-35.0) pg MCHC 34.9 (31.0-37.0) g/dL RDW 12.6 (11.5-15.5) % Plt Count 238 (150-450) k/uL MPV 7.7 Neutrophils % 77 % Lymphocytes % 14 % Monocytes % 5 % Eosinophils % 2 % Basophils % 1 % Neutrophils # 8.9 H (1.3-7.7) k/uL Lymphocytes # 1.7 (1.0-4.8) k/uL Monocytes # 0.6 (0-1.0) k/uL Eosinophils # 0.3 (0-0.7) k/uL Basophils # 0.1 (0-0.2) k/uL PT 10.1 (9.0-12.0) sec INR 0.9 (<1.2) APTT 23.3 (22.0-30.0) sec D-Dimer (<0.60) mg/L FEU Sodium 138 (137-145) mmol/L Potassium 3.8 (3.5-5.1) mmol/L Chloride 105 (98-107) mmol/L Carbon Dioxide 29 (22-30) mmol/L Anion Gap 4 mmol/L BUN 8 (7-17) mg/dL Creatinine 0.69 (0.52-1.04) mg/dL Est GFR (CKD-EPI)AfAm >90 (>60 ml/min/1.73 sqM) Est GFR (CKD-EPI)NonAf >90 (>60 ml/min/1.73 sqM) Glucose 113 H (74-99) mg/dL Calcium 9.1 (8.4-10.2) mg/dL Magnesium 1.7 (1.6-2.3) mg/dL Total Bilirubin 0.2 (0.2-1.3) mg/dL AST 19 (14-36) U/L ALT 11 (4-34) U/L Alkaline Phosphatase 104 (38-126) U/L Troponin I (0.000-0.034) ng/mL Total Protein 6.3 (6.3-8.2) g/dL Albumin 4.0 (3.5-5.0) g/dL 03/27/21 03/27/21 Range/Units 14:29 14:29 WBC (3.8-10.6) k/uL RBC (3.80-5.40) m/uL Hgb (11.4-16.0) gm/dL Hct (34.0-46.0) % MCV (80.0-100.0) fL MCH (25.0-35.0) pg MCHC (31.0-37.0) g/dL RDW (11.5-15.5) % Plt Count (150-450) k/uL MPV Neutrophils % % Lymphocytes % % Monocytes % % Eosinophils % % Basophils % % Neutrophils # (1.3-7.7) k/uL Lymphocytes # (1.0-4.8) k/uL Monocytes # (0-1.0) k/uL Eosinophils # (0-0.7) k/uL Basophils # (0-0.2) k/uL PT (9.0-12.0) sec INR (<1.2) APTT (22.0-30.0) sec D-Dimer 0.33 (<0.60) mg/L FEU Sodium (137-145) mmol/L Potassium (3.5-5.1) mmol/L Chloride (98-107) mmol/L Carbon Dioxide (22-30) mmol/L Anion Gap mmol/L BUN (7-17) mg/dL Creatinine (0.52-1.04) mg/dL Est GFR (CKD-EPI)AfAm (>60 ml/min/1.73 sqM) Est GFR (CKD-EPI)NonAf (>60 ml/min/1.73 sqM) Glucose (74-99) mg/dL Calcium (8.4-10.2) mg/dL Magnesium (1.6-2.3) mg/dL Total Bilirubin (0.2-1.3) mg/dL AST (14-36) U/L ALT (4-34) U/L Alkaline Phosphatase (38-126) U/L Troponin I 0.114 H* (0.000-0.034) ng/mL Total Protein (6.3-8.2) g/dL Albumin (3.5-5.0) g/dL - EKG Data EKG Comments: Sinus rhythm with no acute ischemic changes Ventricular rate 89, HI 126, QRS 86, QTC 464. Disposition Clinical Impression: COPD exacerbation, NSTEMI (non-ST elevated myocardial infarction) Disposition: ADMITTED IP TO THIS HOSP Condition: Good Is patient prescribed a controlled substance at d/c from ED?: No Referrals: Isael Palomares DO [Primary Care Provider] - 1-2 days Time of Disposition: 17:12
[2021-03-27] MEDS ORDERED: HYDROcodone/APAP 10-325MG 1 EACH TAB PO ONE (14:39)
[2021-03-27 14:49] LABS: Basophils # (A) 0.1 k/uL (0-0.2); Basophils % (A) 1 %; Eosinophils # (A) 0.3 k/uL (0-0.7); Eosinophils % (A) 2 %; HCT 41.3 % (34.0-46.0); HGB 14.4 gm/dL (11.4-16.0); Lymphocytes # (A) 1.7 k/uL (1.0-4.8); Lymphocytes % (A) 14 %; MCH 33.6 pg (25.0-35.0); MCHC 34.9 g/dL (31.0-37.0); MCV 96.1 fL (80.0-100.0); Mean Platelet Volume 7.7; Monocytes # (A) 0.6 k/uL (0-1.0); Monocytes % (A) 5 %; Neutrophils # (A) 8.9 k/uL (1.3-7.7); Neutrophils % (A) 77 %; Platelet Count 238 k/uL (150-450); RDW 12.6 % (11.5-15.5); WBC 11.5 k/uL (3.8-10.6)
[2021-03-27 15:03] LABS: INR 0.9 (<1.2); Partial Thromboplastin Time 23.3 sec (22.0-30.0); Prothrombin Time 10.1 sec (9.0-12.0)
[2021-03-27 15:14] LABS: AST 19 U/L (14-36); African American GFR (CKD) >90 (>60 ml/min/1.73 sqM); Anion Gap 4 mmol/L; Blood Urea Nitrogen 8 mg/dL (7-17); Calcium 9.1 mg/dL (8.4-10.2); Carbon Dioxide 29 mmol/L (22-30); Chloride 105 mmol/L (98-107); Glucose 113 mg/dL (74-99); Magnesium 1.7 mg/dL (1.6-2.3); Non-African American GFR(CKD) >90 (>60 ml/min/1.73 sqM); Potassium 3.8 mmol/L (3.5-5.1); Sodium 138 mmol/L (137-145); Total Bilirubin 0.2 mg/dL (0.2-1.3); Total Protein 6.3 g/dL (6.3-8.2)
[2021-03-27 15:15] LABS: ALT 11 U/L (4-34); Alkaline Phosphatase 104 U/L (38-126)
--- NOTE | 2021-03-27 15:34 | XR ---
EXAMINATION TYPE: XR chest 2V DATE OF EXAM: 03/27/2021 COMPARISON: 06/17/2020 HISTORY: Difficulty breathing TECHNIQUE: Frontal and lateral views of the chest are obtained. FINDINGS: Interval improvement in right sided patchy airspace disease with minimal right upper lung zone airspa ce disease versus scarring still seen. Cardiac silhouette is unchanged. IMPRESSION: Interval improvement in right sided patchy airspace disease with minimal right upper lung zone airspa ce disease versus scarring still seen. CT could be performed for further evaluation if clinically war ranted.
--- NOTE | 2021-03-27 16:36 | CT ---
EXAMINATION TYPE: CT chest angio for PE DATE OF EXAM: 03/27/2021 COMPARISON: Radiograph same day and previous CT 06/15/2020 HISTORY: 50-year-old female right upper lung opacity, exertional dyspnea, Shortness of breath. TECHNIQUE: Contiguous axial scanning of the chest performed with IV Contrast, patient injected with 1 00ml mL of Isovue 370. Coronal/sagittal MIP reconstructions performed. CT DLP: 184.9 mGycm Automated exposure control for dose reduction was used. FINDINGS: Bilateral breast implants. Heart normal size without pericardial effusion. Aneurysmal aortic root measuring up to 4.1 cm. Possible bicuspid aortic valve. Ascending aorta 4.4 cm, not significantly changed. Proximal arch 4.6 cm, not significantly changed. Bovine configuration to the aortic arch and mild atherosclerotic calcifications. No thoracic lymphadenopathy by CT size criteria. Satisfactory opacification the pulmonary consistent. No evidence for pulmonary embolus. No flattening of the intraventricular septum. Minimal reflux of contrast into the hepatic veins. Moderate to advanced centrilobular emphysema. Biapical pleural parenchymal scarring Focal irregular opacity remains posterior right upper lobe measuring 2.2 x 1.5 cm. Secondary of focal distortion and density subpleural peripheral right upper lobe, axial image 33 probable scarring as t here is no significant soft tissue component. Subpleural irregular opacity lateral left upper lobe is unchanged from 06/15/2020 suggesting pleural parenchymal scarring. Some scattered endobronchial mucous plugging in the lower lobes. No pleural effusion. Visualized upper abdomen shows no gross abnormality. Bones: Central, left paracentral disc osteophyte complex at T6-T7 is unchanged. Scattered small endpl ate Schmorl's nodes. IMPRESSION: 1. COPD WITH MODERATE TO ADVANCED EMPHYSEMA. 2. NO EVIDENCE FOR PULMONARY EMBOLUS. 3. QUERY ANY PREVIOUS WORKUP TO ASSESS FOR POTENTIAL BICUSPID AORTIC VALVE. THE ASCENDING AORTA AND A ORTIC ROOT REMAIN ANEURYSMAL MEASURING UP TO 4.6 CM. VASCULAR SURGERY REFERRAL FOR FUTURE SURVEILLANC E/MANAGEMENT SHOULD BE CONSIDERED. Measurements are not significantly changed from 06/15/2020. 4. IRREGULAR PLEURAL PARENCHYMAL OPACITIES IN THE RIGHT GREATER THAN LEFT UPPER LOBES PROBABLY REPRES ENT SCARRING AND HAVE OVERALL IMPROVED SIGNIFICANTLY FROM 06/15/2020. MINIMAL RESIDUAL INFILTRATE WOULD BE DIFFICULT TO EXCLUDE IF THE PATIENT HAS INFECTIOUS SIGNS/SYMPTOMS. FOLLOW-UP CT IN 6 MONTHS TO EX CLUDE NEOPLASM AT A MORE FOCAL AREA MEASURING 2.2 CM IN THE POSTERIOR RIGHT UPPER LOBE. AGAIN, PLEURA L PARENCHYMAL SCARRING IS FAVORED.
[2021-03-27] MEDS ORDERED: ATORVASTATIN 40 MG TAB PO STA (17:08)
[2021-03-27] MEDS ORDERED: NITROGLYCERIN SL TABS 0.4 MG TAB SUBLINGUAL PRN (17:08)
[2021-03-27] MEDS ORDERED: ASPIRIN 325 MG TAB PO STA (17:08)
[2021-03-27] MEDS ORDERED: NICOTINE 21MG/24HR PATCH TRANSDERM SCH (18:15)
[2021-03-27] MEDS ORDERED: HYDROcodone/APAP 7.5-325MG 1 EACH TAB PO PRN (21:33)
[2021-03-27] MEDS ORDERED: guaiFENesin SYRUP 100MG/5ML 200 MG/10 ML CUP PO PRN (21:33)
[2021-03-27] MEDS ORDERED: BENZONATATE 100 MG CAP PO PRN (21:33)
[2021-03-27] MEDS ORDERED: ONDANSETRON 4 MG/2 ML VIAL IVP PRN (21:46)
[2021-03-27] MEDS ORDERED: HEPARIN SODIUM 1,000 UN/ML (10ML VL) IV ONE (21:48)
[2021-03-27] MEDS ORDERED: HEPARIN SODIUM 1,000 UN/ML (10ML VL) IV PRN (21:48)
[2021-03-27] MEDS ORDERED: HEPARIN SOD,PORK IN 0.45% NACL 25,000 UNIT in 0.45% NACL 1 250ML.BAG IV SCH (22:00)
[2021-03-27] MEDS: busPIRone HCl 5 MG TAB PO SCH (22:05)
[2021-03-27] MEDS: GABAPENTIN 300 MG CAP PO SCH (22:06)
[2021-03-27] MEDS: PRIMIDONE 50 MG TAB PO SCH (22:06)
[2021-03-27] MEDS: DESVENLAFAXINE SUCCINATE 50 MG TAB.ER.24H PO SCH ×2 (22:06)
[2021-03-27] MEDS: traZODone HCL 100 MG TAB PO SCH (22:06)
[2021-03-27] MEDS: IPRATROPIUM-ALBUTEROL 3 ML NEB INHALATION PRN (22:35)
[2021-03-27 22:41] LABS: INR 0.9 (<1.2); Prothrombin Time 10.1 sec (9.0-12.0)
[2021-03-27] MEDS: ALBUTEROL NEBULIZED 2.5 MG/3 ML INHALATION SCH (22:49)
[2021-03-27] MEDS: methocarbamoL 750 MG TAB PO PRN (22:51)
[2021-03-28] MEDS: ALBUTEROL NEBULIZED 2.5 MG/3 ML INHALATION SCH ×6 (02:54→23:25)
[2021-03-28 05:31] LABS: Basophils % (A) 1 %; Eosinophils # (A) 0.1 k/uL (0-0.7); Eosinophils % (A) 1 %; HCT 41.8 % (34.0-46.0); HGB 14.3 gm/dL (11.4-16.0); Lymphocytes # (A) 1.6 k/uL (1.0-4.8); Lymphocytes % (A) 24 %; MCH 33.4 pg (25.0-35.0); MCHC 34.2 g/dL (31.0-37.0); MCV 97.7 fL (80.0-100.0); Mean Platelet Volume 7.6; Monocytes # (A) 0.4 k/uL (0-1.0); Monocytes % (A) 6 %; Neutrophils # (A) 4.4 k/uL (1.3-7.7); Neutrophils % (A) 67 %; Platelet Count 223 k/uL (150-450); RBC 4.28 m/uL (3.80-5.40); RDW 12.7 % (11.5-15.5); WBC 6.5 k/uL (3.8-10.6)
[2021-03-28 05:43] LABS: African American GFR (CKD) >90 (>60 ml/min/1.73 sqM); Anion Gap 2 mmol/L; Blood Urea Nitrogen 9 mg/dL (7-17); Calcium 8.9 mg/dL (8.4-10.2); Carbon Dioxide 29 mmol/L (22-30); Chloride 107 mmol/L (98-107); Glucose 94 mg/dL (74-99); Non-African American GFR(CKD) >90 (>60 ml/min/1.73 sqM); Potassium 4.3 mmol/L (3.5-5.1); Sodium 138 mmol/L (137-145)
[2021-03-28 05:47] LABS: INR 0.9 (<1.2); Partial Thromboplastin Time 32.1 sec (22.0-30.0)
[2021-03-28] MEDS ORDERED: ASPIRIN 325 MG TAB PO SCH (09:00)
[2021-03-28] MEDS: METOPROLOL TARTRATE 25 MG TAB PO SCH ×2 (09:22→19:35)
[2021-03-28] MEDS: busPIRone HCl 5 MG TAB PO SCH ×2 (09:23→19:33)
[2021-03-28] MEDS: amLODIPine 5 MG TAB PO SCH (09:23)
[2021-03-28] MEDS: HYDROcodone/APAP 10-325MG 1 EACH TAB PO PRN ×3 (09:23→23:07)
[2021-03-28] MEDS: GABAPENTIN 300 MG CAP PO SCH ×2 (09:23→19:35)
[2021-03-28] MEDS: IPRATROPIUM-ALBUTEROL 3 ML NEB INHALATION SCH ×3 (11:12→20:43)
--- NOTE | 2021-03-28 11:43 | ECHOF ---
Referral Reason:elevated troponin, LV function MEASUREMENTS -------- HEIGHT: 165.1 cm WEIGHT: 51.7 kg BP: 111/73 IVSd: 1.2 cm (0.6 - 1.1) LVIDd: 4.2 cm (3.9 - 5.3) LVPWd: 1.1 cm (0.6 - 1.1) IVSs: 1.7 cm LVIDs: 3.2 cm LVPWs: 1.4 cm LA Diam: 4.0 cm (2.7 - 3.8) Ao Diam: 3.9 cm (2.0 - 3.7) MV E Anthony: 0.69 m/s MV DecT: 129 ms MV A Anthony: 0.71 m/s MV E/A Ratio: 0.96 AV maxP.04 mmHg AV meanP.55 mmHg RAP: 5.00 mmHg RVSP: 35.07 mmHg FINDINGS -------- Sinus rhythm. This was a technically good study. The left ventricular size is normal. There is mild concentric left ventricular hypertrophy. Overa ll left ventricular systolic function is low-normal with, an EF between 50 - 55 %. The right ventricle is normal in size. The left atrial size is normal. The right atrial size is normal. There is mild aortic regurgitation. Peak/mean gradient across the Aortic Valve is 44.04mmHg / 27.55 mmHg. Functionally bicuspid aortic valve. There is moderate to severe aortic stenosis. Vmax 3.3m /s. Dimnesionless index is 0.20, [place] by continuity 0.46 and stroke volume index of 19.2 all concern ing for paradoxical low flow low gradient severe aortic stenosis. Recommend KARLIE or low dose dobutami ne stress echo to further investigate if clinically indicated. [id number] mitral regurgitation is present. Mild tricuspid regurgitation present. The right ventricular systolic pressure, as measured by Doppl er, is 35.07mmHg. Pulmonic valve not well visualized, elevated velocities around pulmonic valve appear related to aorti c jet. Ascending Aortic root is dilated and measures 3.9cm. There is no pericardial effusion. CONCLUSIONS -------- 1. The left ventricular size is normal. 2. There is mild concentric left ventricular hypertrophy. 3. Overall left ventricular systolic function is low-normal with, an EF between 50 - 55 %. 4. The right ventricle is normal in size. 5. The left atrial size is normal. 6. The right atrial size is normal. 7. There is mild aortic regurgitation. 8. Peak/mean gradient across the Aortic Valve is 44.04mmHg / 27.55mmHg. 9. Functionally bicuspid aortic valve. 10. There is moderate to severe aortic stenosis. Vmax 3.3m/s. Dimnesionless index is 0.20, [place] by continuity 0.46 and stroke volume index of 19.2 all concerning for paradoxical low flow low gradient severe aortic stenosis. Recommend KARLIE or low dose dobutamine stress echo to further investigate if c linically indicated. 11. [id number] mitral regurgitation is present. 12. Mild tricuspid regurgitation present. 13. The right ventricular systolic pressure, as measured by Doppler, is 35.07mmHg. 14. Ascending Aortic root is dilated and measures 3.9cm. 15. There is no pericardial effusion. [facility] MANAGER: Nidia Aiken RDCS
[2021-03-28] MEDS: methylPREDNISolone SOD SUCCI 125 MG/2 ML VIAL IV SCH ×3 (12:17→23:08)
[2021-03-28] MEDS: DOXYCYCLINE 100 MG CAP PO SCH ×2 (12:17→19:34)
--- NOTE | 2021-03-28 13:12 | P.CNPUL ---
History of Present Illness Consult date: 03/28/21 Reason for consult: dyspnea Chief complaint: Shortness of breath History of present illness: This is a 50-year-old white female patient who follows with Dr. Adler in the pulmonary clinic for a history of severe COPD with a baseline FEV1 of 33% of predicted consistent with stage III COPD. Patient is on home oxygen, but not on maintenance prednisone. Other medical history is significant for chronic neck and back pain, hypertension, previous episodes of pneumonia, anxiety, pulmonary embolism on Eliquis, tobacco dependence syndrome. Patient continues to smoke, she carries 53-ltpd-ighb smoking history, and is currently smoking 1 pack a day. She states she was treated on an outpatient basis for acute exacerbation of COPD with Depo-Medrol 80 mg injection, she was given 7 day course of doxycycline 100 mg twice daily, she was started on Spiriva resting mats inhaler 2 puffs daily, and she was given an additional prednisone taper. Patient states as soon as her taper of her prednisone had finished her breathing became worse, she is complaining of shortness of breath, cough, wheezing. She presented to the [facility] department on 03/27/2021 for evaluation. She states her PCP did call in a prescription of antibiotics and steroids for her, but in view of worsening symptoms she came into the emergency department. She did report some chest tightness as well. She had diffuse bilateral wheezing. Denied any fever or chills. Her chest x-ray showed interval improvement in the right-sided patchy airspace disease with minimal right upper lung zone airspace disease versus scarring. Her white count was 11.5, hemoglobin was 14.4, d-dimer was negative at 0.3, electrolytes and renal profile were unremarkable, LFTs were within normal limits, she did have troponin elevation of 0.114, 0.110, and 0.101. She was given a dose of IV steroids in the emergency department, breathing treatments. CTA chest was completed showing COPD with moderate to advanced emphysema, no evidence of pulmonary embolism, there was a possibility of bicuspid aortic valve, and aneurysmal ascending aorta and aortic root measuring 4.6 cm. Vascular surgery referral for future maintenance was recommended. There was irregular pleural parenchymal opacities in the right greater than left upper lobes probably representing scarring that seem to have improved compared to previous CT scans of the chest. Review of Systems All systems: negative Constitutional: Denies chills, Denies fever Eyes: denies blurred vision, denies pain Ears, nose, mouth and throat: Denies headache, Denies sore throat Cardiovascular: Denies chest pain, Denies shortness of breath Respiratory: Reports dyspnea, Reports home oxygen, Reports respiratory infections, Reports wheezing, Denies cough Gastrointestinal: Denies abdominal pain, Denies diarrhea, Denies nausea, Denies vomiting Genitourinary: Denies dysuria, Denies hematuria Musculoskeletal: Denies myalgias Integumentary: Denies pruritus, Denies rash Neurological: Denies numbness, Denies weakness Psychiatric: Denies anxiety, Denies depression Endocrine: Denies fatigue, Denies weight change Past Medical History Past Medical History: Asthma, COPD, Hypertension, Pulmonary Embolus (PE) Additional Past Medical History / Comment(s): anxiety, neuropathy rt side, back and neck pain. Moderna vaccine History of Any Multi-Drug Resistant Organisms: None Reported Past Surgical History: Adenoidectomy, Cholecystectomy, Hysterectomy, Tonsillectomy Additional Past Surgical History / Comment(s): ablation to back, brain aneurysm Past Psychological History: No Psychological Hx Reported Smoking Status: Current every day smoker Past Alcohol Use History: Rare Past Drug Use History: Marijuana - Past Family History Mother Family Medical History: No Reported History Medications and Allergies Home Medications Medication Instructions Recorded Confirmed Type Butalbital/Aspirin/Caffeine 1 tab PO Q8H PRN 11/30/19 03/27/21 History [Cfuhtm-[id number]-[id number] 50-325-40 mg] Cyanocobalamin [Vitamin B-12 1,000 mcg IM Q28D 11/30/19 03/27/21 History Injection] Desvenlafaxine Succinate [Pristiq 50 mg PO HS 11/30/19 03/27/21 History ER] Desvenlafaxine [Pristiq ER] 100 mg PO HS 11/30/19 03/27/21 History Primidone [Mysoline] 50 mg PO HS 11/30/19 03/27/21 History Albuterol Sulfate [Ventolin HFA] 2 puff INHALATION RT-Q6H PRN 06/14/20 03/27/21 History Fluticasone Propion/Salmeterol 1 puff INHALATION RT-BID 06/14/20 03/27/21 History [Wixela 250-50 Inhub] Ipratropium-Albuterol Nebulize 3 ml INHALATION RT-Q4H PRN 06/14/20 03/27/21 History [Duoneb 0.5 mg-3 mg/3 ml Soln] traZODone HCL 200 mg PO HS 06/14/20 03/27/21 History ARIPiprazole [Abilify] 10 mg PO HS 03/27/21 03/27/21 History Apixaban [Eliquis] 5 mg PO BID 03/27/21 03/27/21 History Benzonatate [Tessalon Perles] 200 mg PO TID PRN 03/27/21 03/27/21 History Fexofenadine HCl [Vanessa Allergy] 180 mg PO DAILY 03/27/21 03/27/21 History Gabapentin 300 mg PO BID 03/27/21 03/27/21 History HYDROcodone/APAP 7.5-325MG [[place] 1 tab PO Q6H PRN 03/27/21 03/27/21 History 7.5-325] Levofloxacin [Levaquin] 750 mg PO DAILY 03/27/21 03/27/21 History amLODIPine [Norvasc] 5 mg PO DAILY 03/27/21 03/27/21 History busPIRone HCL [Buspar] 15 mg PO BID 03/27/21 03/27/21 History guaiFENesin [guaiFENesin Oral 10 ml PO Q4H PRN 03/27/21 03/27/21 History Solution] methocarbamoL [Robaxin] 750 mg PO TID PRN 03/27/21 03/27/21 History Allergies Allergy/AdvReac Type Severity Reaction Status Date / Time amitriptyline [From Elavil] Allergy Unknown Verified 03/27/21 12:59 pregabalin [From Lyrica] Allergy Unknown Verified 03/27/21 12:59 Physical Exam Vitals: Vital Signs Temp Pulse Pulse Resp BP BP Pulse Ox 03/28/21 11:23 98 03/28/21 11:12 98 03/28/21 08:05 108 H 03/28/21 07:51 106 H 97 03/28/21 04:15 98 F 83 16 111/73 97 03/28/21 03:03 88 03/28/21 02:55 88 03/27/21 23:00 83 18 102/64 94 L 03/27/21 22:20 100 03/27/21 21:05 98.1 F 85 19 121/76 97 03/27/21 20:00 97.9 F 83 18 120/84 98 03/27/21 18:15 88 18 127/86 97 03/27/21 16:47 20 03/27/21 16:37 98.0 F 87 20 129/91 98 03/27/21 14:38 90 03/27/21 14:20 90 03/27/21 12:55 97.9 F 102 H 18 137/94 95 Intake and Output 03/27/21 03/28/21 03/28/21 22:59 06:59 14:59 Intake Total 48.092 293 Output Total 0 Balance 48.092 293 Intake: Intake, IV Titration 48.092 Amount Heparin Sod,Pork in 0.45% 48.092 NaCl 25,000 unit In 0.45 % NaCl 1 250ml.bag @ 12 UNITS/KG/HR 6.314 mls/hr IV .Q24H [facility] Rx#: [id number] Oral 293 Output: Urine 0 Other: Voiding Method Toilet Toilet # Voids 0 1 Weight 52.617 kg 52.1 kg GENERAL EXAM: Alert, very pleasant 50-year-old white female, on 3 L of oxygen and the pulse ox of 97% comfortable in no apparent distress. HEAD: Normocephalic/atraumatic. EYES: Normal reaction of pupils, equal size. Conjunctiva pink, sclera white. NOSE: Clear with pink turbinates. THROAT: No erythema or exudates. NECK: No masses, no JVD, no thyroid enlargement, no adenopathy. CHEST: No chest wall deformity. Symmetrical expansion. LUNGS: Equal air entry with diminished breath sounds, with expiratory wheezing CVS: Regular rate and rhythm, normal S1 and S2, no gallops, no murmurs, no rubs ABDOMEN: Soft, nontender. No hepatosplenomegaly, normal bowel sounds, no guarding or rigidity. EXTREMITIES: No clubbing, no edema, no cyanosis, 2+ pulses and upper and lower extremities. MUSCULOSKELETAL: Muscle strength and tone normal. SPINE: No scoliosis or deformity SKIN: No rashes CENTRAL NERVOUS SYSTEM: Alert and oriented -3. No focal deficits, tone is normal in all 4 extremities. PSYCHIATRIC: Alert and oriented -3. Appropriate affect. Intact judgment and insight. Results - Laboratory Findings CBC and BMP: 03/28/21 05:10 03/28/21 05:10 PT/INR, D-dimer PT 10.0 sec (9.0-12.0) 03/28/21 05:10 INR 0.9 (<1.2) 03/28/21 05:10 D-Dimer 0.33 mg/L FEU (<0.60) 03/27/21 14:29 Abnormal lab findings: Abnormal Labs 03/27/21 03/27/21 03/27/21 14:29 14:29 14:29 WBC 11.5 H Neutrophils # 8.9 H APTT Glucose 113 H Troponin I 0.114 H* 03/27/21 03/27/21 03/28/21 18:06 20:36 05:10 WBC Neutrophils # APTT 32.1 H Glucose Troponin I 0.110 H* 0.101 H* - Diagnostic Findings Chest x-ray: report reviewed, image reviewed CT scan - chest: report reviewed, image reviewed Additional studies: EKG reviewed Assessment and Plan Plan: Assessment: #1. Acute exacerbation of chronic obstructive pulmonary disease, chest x-ray showed patchy airspace disease in the right lung, likely related to scarring which is actually improved from her last chest x-ray from 2019. CTA chest showed COPD/emphysema, no evidence of pulmonary embolism #2. Failure of outpatient treatment, patient had recently completed a course of antibiotics and second round of outpatient prednisone #3. Elevated troponins, patient is being followed by cardiology, rule out possibility of non-STEMI #4. Pleural parenchymal opacities in the right greater than left upper lobes likely representing scarring is seen on the CT chest #5. Aortic root aneurysmal enlargement measuring up to 4.6 cm seen on the CTA chest and possible bicuspid aortic valve #6. Advanced COPD, with baseline FEV1 of 33% of predicted, consistent with stage III COPD, on home oxygen #7. Chronic and ongoing history of nicotine dependence, patient continued to smoke 1 pack a day, carries 38 years of smoking #8. History of pulmonary embolism on Eliquis #9. Anxiety #10. History of neuropathy on the right side #11. Chronic neck and back pain #12. History of marijuana use Plan: Continue current medical treatment We'll add IV steroids 60 mg every 6 hours We will add doxycycline 100 mg twice daily Continue bronchodilators Cardiology evaluation We'll continue to follow I performed a history & physical examination of the patient and discussed their management with my nurse practitioner, Caroline Hughes. I reviewed the nurse practitioner's note and agree with the documented findings and plan of care. Lung sounds are positive for diffuse wheezes throughout the lung [place]. The findings and the impression was discussed with the patient. I attest to the documentation by the nurse practitioner. Time with Patient: Greater than 30
--- NOTE | 2021-03-28 13:21 | P.CRDCN ---
History of Present Illness History of present illness: HISTORY OF PRESENTING ILLNESS This is a pleasant 50-year-old female past medical history significant for COPD, pulmonary embolism (on Eliquis) diagnosed 06/2020, hypertension, chronic nicotin e dependence. She does not follow with a teacher of the deaf/hard of hearing. We have been asked to see in consultation for elevated troponin. Patient presents to the emergency department shortness of breath. Patient states that starting Saturday she had increased shortness of work. 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 She states 3 weeks ago she saw a linseed oil order filler the first week he started her on a prednisone taper. Second week she had no improvement in symptoms and he started her on another prednisone taper and antibiotic. Saturday she had worsening shortness of breath. She also has midsternal right-sided chest pain is nonradiating, nonexertional. She also has back pain but this is chronic. She does have increased shortness of breath with activity. But does not relieve with rest. She denies symptoms of orthopnea. She does have symptoms of PND. She states after med neb her symptoms are improved. She denies palpitations, lower extremity edema, fatigue, weakness, lightheadedness, syncope. She denies history of coronary artery disease, TX, stroke, diabetes. Family history includes Father had an TX and stents placed, not sure what age. She denies family history of bicuspid aortic valve. She smokes about 1 pack per day. No alcohol use. Current home cardiac medications include amlodipine 5 mg daily, Eliquis 5 mg twice a day. DIAGNOSTICS EKG reveals sinus rhythm, heart rate 89, no significant ST-T wave abnormalities, left ventricular hypertrophy, poor R wave progression. Prior EKG 06/2020 revealed sinus tachycardia, heart rate 114, no significant ST- T wave abnormalities Telemetry tracings indicate sinus mechanism, heart rate in the 80s. Chest xray interval from in the right eye patchy airspace disease with minimal right upper lobe lung airspace disease versus scarring. CT chest revealed, potential bicuspid aortic valve, ascending aorta continue medical remained aneurysmal measuring up to 4.6, measurements are not suddenly change from 06/15/2020, no evidence of PE, COPD with moderate to dense emphysema, minimal residual infiltrate would be difficult excluded the patient has infectious signs or symptoms, bilateral pleural parenchymal opacities in the right greater than left upper lobes probably could represent scarring and have a problem improved significantly from 06/15/2020. Laboratory reviewed, CBC unremarkable, troponin 0.13, d-dimer negative, sodium 130, potassium 4.3, BUN 9, serum creatinine 0.72, magnesium 1.7 REVIEW OF SYSTEMS At the time of my exam: CONSTITUTIONAL: Denies fever or chills. CARDIOVASCULAR: +chest pain , +shortness of breath, +PND Denies orthopnea or palpitations. RESPIRATORY: + cough. GASTROINTESTINAL: Denies abdominal pain, diarrhea, constipation, nausea or vomi ting. MUSCULOSKELETAL: Denies myalgias. NEUROLOGIC: Denies numbness, tingling, headacbe or weakness. ENDOCRINE: Denies fatigue, weight change, polydipsia or polyurina. GENITOURINARY: Denies burning, hematuria or urgency with micturation. HEMATOLOGIC: Denies history of anemia or bleeding. PHYSICAL EXAMINATION Blood pressure 111/73 heart rate 83 afebrile and maintaining oxygen saturation 97% on 2L CONSTITUTIONAL: Short of breath, labored breathing HEENT: Head is normocephalic. Pupils are equal, round. Sclerae anicteric. Mucous membranes of the mouth are moist. No JVD. No carotid bruit. CHEST EXAMINATION: Lungs with decreased air exchange, bilateral wheezing. Mild chest tendernes with palpation and with deep breathing. HEART EXAMINATION: Regular rate and rhythm. S1, S2 heard. Systolic murmur noted at right sternal border, No gallops or rub. ABDOMEN: Soft, nontender. Positive bowel sounds. EXTREMITIES: 2+ peripheral pulses, no lower extremity edema and no calf tenderness. SKIN: intact NEUROLOGIC EXAMINATION: Patient is awake, alert and oriented x3. ASSESSMENT Chest pain, atypical, appears more pleuritic in nature Elevated troponin, most likely due to supply and demand mismatch, not indicative of acute coronary syndrome. No ischemia noted on EKG. Shortness of breath COPD exacerbation Bicuspid aortic valve Moderate to severe aortic stenosis Aortic aneursym PLAN Obtain 2D echocardiogram and doppler study to assess cardiac structure and function- results revealed an EF of 50-55%, mild aortic regurgitation with peak/mean gradient of 44 most mercury/27 mmHg, functionally bicuspid aortic valve, moderate to severe aortic stenosis mild to moderate mitral regurgitation, mild tricuspid regurgitation, ascending aortic root is dilated and measures 3.9 cm At this time due to patient respiratory status we will not perform a KARLIE at this time, will most likely perform outpatient, will discuss with the patient Stop heparin drip Continue patient's amlodipine Start metoprolol tartrate 25mg BID Smoking cessation discussed and highly recommended. Follow up with Dr. Negron, when medically stable for discharge. Further recommendations based on clinical course Nurse Practitioner note has been reviewed, I agree with a documented findings and plan of care. Patient was seen and examined. Past Medical History Past Medical History: Asthma, COPD, Hypertension, Pulmonary Embolus (PE) Additional Past Medical History / Comment(s): anxiety, neuropathy rt side, back and neck pain. Moderna vaccine History of Any Multi-Drug Resistant Organisms: None Reported Past Surgical History: Adenoidectomy, Cholecystectomy, Hysterectomy, Tonsillectomy Additional Past Surgical History / Comment(s): ablation to back, brain aneurysm Past Psychological History: No Psychological Hx Reported Smoking Status: Current every day smoker Past Alcohol Use History: Rare Past Drug Use History: Marijuana - Past Family History Mother Family Medical History: No Reported History Medications and Allergies Home Medications Medication Instructions Recorded Confirmed Type Butalbital/Aspirin/Caffeine 1 tab PO Q8H PRN 11/30/19 03/27/21 History [Mljlue-Yzjovfw-Phiyphxn 50-325-40 mg] Cyanocobalamin [Vitamin B-12 1,000 mcg IM Q28D 11/30/19 03/27/21 History Injection] Desvenlafaxine Succinate [Pristiq 50 mg PO HS 11/30/19 03/27/21 History ER] Desvenlafaxine [Pristiq ER] 100 mg PO HS 11/30/19 03/27/21 History Primidone [Mysoline] 50 mg PO HS 11/30/19 03/27/21 History Albuterol Sulfate [Ventolin HFA] 2 puff INHALATION RT-Q6H PRN 06/14/20 03/27/21 History Fluticasone Propion/Salmeterol 1 puff INHALATION RT-BID 06/14/20 03/27/21 History [Wixela 250-50 Inhub] Ipratropium-Albuterol Nebulize 3 ml INHALATION RT-Q4H PRN 06/14/20 03/27/21 History [Duoneb 0.5 mg-3 mg/3 ml Soln] traZODone HCL 200 mg PO HS 06/14/20 03/27/21 History ARIPiprazole [Abilify] 10 mg PO HS 03/27/21 03/27/21 History Apixaban [Eliquis] 5 mg PO BID 03/27/21 03/27/21 History Benzonatate [Tessalon Perles] 200 mg PO TID PRN 03/27/21 03/27/21 History Fexofenadine HCl [Vanessa Allergy] 180 mg PO DAILY 03/27/21 03/27/21 History Gabapentin 300 mg PO BID 03/27/21 03/27/21 History HYDROcodone/APAP 7.5-325MG [[place] 1 tab PO Q6H PRN 03/27/21 03/27/21 History 7.5-325] Levofloxacin [Levaquin] 750 mg PO DAILY 03/27/21 03/27/21 History amLODIPine [Norvasc] 5 mg PO DAILY 03/27/21 03/27/21 History busPIRone HCL [Buspar] 15 mg PO BID 03/27/21 03/27/21 History guaiFENesin [guaiFENesin Oral 10 ml PO Q4H PRN 03/27/21 03/27/21 History Solution] methocarbamoL [Robaxin] 750 mg PO TID PRN 03/27/21 03/27/21 History Allergies Allergy/AdvReac Type Severity Reaction Status Date / Time amitriptyline [From Elavil] Allergy Unknown Verified 03/27/21 12:59 pregabalin [From Lyrica] Allergy Unknown Verified 03/27/21 12:59 Physical Exam Vitals: Vital Signs Temp Pulse Pulse Resp BP BP Pulse Ox 03/28/21 07:51 106 H 97 03/28/21 04:15 98 F 83 16 111/73 97 03/28/21 03:03 88 03/28/21 02:55 88 03/27/21 23:00 83 18 102/64 94 L 03/27/21 22:20 100 03/27/21 21:05 98.1 F 85 19 121/76 97 03/27/21 20:00 97.9 F 83 18 120/84 98 03/27/21 18:15 88 18 127/86 97 03/27/21 16:47 20 03/27/21 16:37 98.0 F 87 20 129/91 98 03/27/21 14:38 90 03/27/21 14:20 90 03/27/21 12:55 97.9 F 102 H 18 137/94 95 Intake and Output 03/27/21 03/28/21 03/28/21 22:59 06:59 14:59 Intake Total 48.092 Output Total 0 Balance 48.092 Intake: Intake, IV Titration 48.092 Amount Heparin Sod,Pork in 0.45% 48.092 NaCl 25,000 unit In 0.45 % NaCl 1 250ml.bag @ 12 UNITS/KG/HR 6.314 mls/hr IV .Q24H [facility] Rx#: [id number] Output: Urine 0 Other: Voiding Method Toilet Toilet # Voids 0 Weight 52.617 kg 52.1 kg Results 03/28/21 05:10 03/28/21 05:10 Cardiac Enzymes 03/27/21 03/27/21 03/27/21 Range/Units 14:29 14:29 18:06 AST 19 (14-36) U/L Troponin I 0.114 H* 0.110 H* (0.000-0.034) ng/mL 03/27/21 Range/Units 20:36 AST (14-36) U/L Troponin I 0.101 H* (0.000-0.034) ng/mL Coagulation 03/27/21 03/27/21 03/28/21 Range/Units 14:29 21:56 05:10 PT 10.1 10.1 10.0 (9.0-12.0) sec APTT 23.3 23.0 32.1 H (22.0-30.0) sec CBC 03/27/21 03/28/21 Range/Units 14:29 05:10 WBC 11.5 H 6.5 (3.8-10.6) k/uL RBC 4.30 4.28 (3.80-5.40) m/uL Hgb 14.4 14.3 (11.4-16.0) gm/dL Hct 41.3 41.8 (34.0-46.0) % Plt Count 238 223 (150-450) k/uL Comprehensive Metabolic Panel 03/27/21 03/28/21 Range/Units 14:29 05:10 Sodium 138 138 (137-145) mmol/L Potassium 3.8 4.3 (3.5-5.1) mmol/L Chloride 105 107 (98-107) mmol/L Carbon Dioxide 29 29 (22-30) mmol/L BUN 8 9 (7-17) mg/dL Creatinine 0.69 0.72 (0.52-1.04) mg/dL Glucose 113 H 94 (74-99) mg/dL Calcium 9.1 8.9 (8.4-10.2) mg/dL AST 19 (14-36) U/L ALT 11 (4-34) U/L Alkaline Phosphatase 104 (38-126) U/L Total Protein 6.3 (6.3-8.2) g/dL Albumin 4.0 (3.5-5.0) g/dL Current Medications Generic Name Dose Route Start Last Admin Trade Name Freq PRN Reason Stop Dose Admin Hydrocodone Bitart/Acetaminophen 1 each 03/27/21 20:15 Hydrocodone/Apap 10-325mg 1 Each Tab PO Q6H PRN Pain Hydrocodone Bitart/Acetaminophen 1 each 03/27/21 21:33 03/27/21 22:04 Hydrocodone/Apap 7.5-325mg 1 Each Tab PO 1 each Q6H PRN Administration Pain Albuterol Sulfate 2.5 mg 03/28/21 00:00 03/28/21 07:50 Albuterol Nebulized 2.5 Mg/3 Ml INHALATION 2.5 mg RT-Q4H ADILENE Administration Albuterol/Ipratropium 3 ml 03/27/21 21:33 03/27/21 22:35 Ipratropium-Albuterol 3 Ml Neb INHALATION 3 ml RT-Q4H PRN Administration Shortness Of Breath Amlodipine Besylate 5 mg 03/28/21 09:00 Amlodipine 5 Mg Tab PO DAILY AD[facility]ENE Aripiprazole 10 mg 03/28/21 21:00 Aripiprazole 10 Mg Tab PO HS ADILENE Aspirin 325 mg 03/28/21 09:00 Aspirin 325 Mg Tab PO DAILY ADILENE Benzonatate 200 mg 03/27/21 21:33 Benzonatate 100 Mg Cap PO TID PRN Cough Buspirone HCl 15 mg 03/27/21 21:45 03/27/21 22:05 Buspirone Hcl 5 Mg Tab PO 15 mg BID ADILENE Administration Desvenlafaxine Succinate 50 mg 03/27/21 21:45 03/27/21 22:06 Desvenlafaxine Succinate 50 Mg Tab.Er.24h PO 50 mg HS ADILENE Administration Desvenlafaxine Succinate 100 mg 03/27/21 21:45 03/27/21 22:06 Desvenlafaxine Succinate 50 Mg Tab.Er.24h PO 100 mg HS ADILENE Administration Gabapentin 300 mg 03/27/21 21:45 03/27/21 22:06 Gabapentin 300 Mg Cap PO 300 mg BID ADILENE Administration Guaifenesin 200 mg 03/27/21 21:33 Guaifenesin Syrup 100mg/5ml 200 Mg/10 Ml Cup PO Q4H PRN Cough Heparin Sodium (Porcine) 0 unit 03/27/21 21:48 03/28/21 06:27 Heparin Sodium 1,000 Un/Ml (10ml Vl) IV 1,000 unit PER PROTOCOL PRN Administration Low PTT Protocol Heparin Sodium/Sodium Chloride 250 mls @ 6.314 mls/hr 03/27/21 22:00 03/28/21 06:26 25,000 unit/ Sodium Chloride IV 15 units/kg/hr .Q24H [facility] 7.893 mls/hr Titration Protocol 12 UNITS/KG/HR Methocarbamol 750 mg 03/27/21 21:33 03/27/21 22:51 Methocarbamol 750 Mg Tab PO 750 mg TID PRN Administration Pain Nitroglycerin 0.4 mg 03/27/21 17:08 Nitroglycerin Sl Tabs 0.4 Mg Tab SUBLINGUAL Q5M PRN Chest Pain Ondansetron HCl 4 mg 03/27/21 21:46 Ondansetron 4 Mg/2 Ml Vial IVP Q6HR PRN Nausea And Vomiting Primidone 50 mg 03/27/21 21:45 03/27/21 22:06 Primidone 50 Mg Tab PO 50 mg HS ADILENE Administration Trazodone HCl 200 mg 03/27/21 21:45 03/27/21 22:06 Trazodone Hcl 100 Mg Tab PO 200 mg HS ADILENE Administration Intake and Output 03/27/21 03/28/21 03/28/21 22:59 06:59 14:59 Intake Total 48.092 Output Total 0 Balance 48.092 Intake: Intake, IV Titration 48.092 Amount Heparin Sod,Pork in 0.45% 48.092 NaCl 25,000 unit In 0.45 % NaCl 1 250ml.bag @ 12 UNITS/KG/HR 6.314 mls/hr IV .Q24H [facility] Rx#: [id number] Output: Urine 0 Other: Voiding Method Toilet Toilet # Voids 0 Weight 52.617 kg 52.1 kg 03/28/21 05:10 03/28/21 05:10
[2021-03-28 14:06] LABS: Chol/HDL Ratio 2.84; Cholesterol 216 mg/dL (0-200); LDL Cholesterol,Calculated 118.2 mg/dL (0.0-131.0)
[2021-03-28] MEDS ORDERED: NON FORMULARY DRUG (Butalbital/Aspirin/Caffeine [Butalb-Aspirin-Caffeine 50-325-40 Mg] 1 E PO PRN (14:50)
[2021-03-28] MEDS ORDERED: HEPARIN SODIUM,PORCINE/PF 5,000 UNIT/0.5 ML SYRINGE SQ SCH (15:00)
--- NOTE | 2021-03-28 16:13 | HP ---
HISTORY AND PHYSICAL DATE OF SERVICE: 03/28/2021. CHIEF COMPLAINT: Shortness of breath and chest pain. HISTORY OF PRESENT ILLNESS: This 50-year-old woman with a past medical history of asthma, COPD, hypertension, history of pulmonary embolism, history of anxiety, being followed by Dr. Isael Palomares in the outpatient setting was complaining of increased shortness of breath. The patient had some anxiety reactions also, but the patient was started as an outpatient on steroids and antibiotics. Because of lack of improvement patient came to [facility] with increased exertional dyspnea. Patient has used 2 DuoNeb updrafts and the patient also complaining of some bilateral wheezing and some tightness of the chest and epigastrium also. The patient was admitted for further evaluation. Troponins were found to be 0.0117, indicating possible uqd-RC-tcxecvk-elevation myocardial infarction. The chest x-ray and CT angio of the chest were also done which showed COPD with no evidence of pulmonary embolism, possible bicuspid aortic valve, some aneurysm dilatation of the aorta and aortic root. Probable scarring also was noted. A followup CT scan was recommended in 6 months. The patient admitted to the hospital for further recommendations to follow. Cardiology and Pulmonology evaluation is in progress at this time. There is no history of fever, rigors or chills. No history of headache, loss of consciousness or seizures. PAST MEDICAL HISTORY: Asthma, COPD, hypertension, pulmonary embolism, adenoidectomy, cholecystectomy. MEDICATIONS: Home medications are gabapentin, guaifenesin, Levaquin, Tessalon Perles, Robaxin, Vanessa, [place], BuSpar. Norvasc, Eliquis, trazodone, Mysoline, Abilify, DuoNeb, butalbital, Pristiq ER, vitamin B12, Ventolin HFA. ALLERGIES: ELAVIL AND LYRICA. FAMILY HISTORY: No history of heart disease or strokes in the family. SOCIAL HISTORY: History of smoking. History of THC. REVIEW OF SYSTEMS: ENT: No diminished vision. No diminished hearing. CARDIO system: As mentioned earlier. RESPIRATORY: As mentioned earlier. GI: No nausea or vomiting. no dysuria. NERVOUS SYSTEM: No numbness or weakness. ALLERGY/IMMUNOLOGY: No asthma or hayfever. MUSCULOSKELETAL: As mentioned earlier. HEMATOLOGY/ONCOLOGY: As mentioned earlier. ENDOCRINE: No history of diabetes or hypothyroidism. CONSTITUTIONAL: As mentioned earlier. DERMATOLOGY: Negative. RHEUMATOLOGY: Negative. PSYCHIATRIC: As mentioned earlier. PHYSICAL EXAMINATION: Alert and oriented times three. Pulse 108, blood pressure 111/73, respirations 16, temperature 98 degrees, pulse ox 97% on 2 L. HEENT: Conjunctivae normal. NECK: No JVD. CARDIOVASCULAR: S1, S2 muffled. RESPIRATION: Breath sounds diminished in the bases. A few scattered rhonchi and crackles. Expiratory wheezing also heard. ABDOMEN: Soft, nontender. LEGS are no edema. No swelling. NERVOUS SYSTEM: Higher functions as mentioned earlier. Moves all four limbs. No focal deficits. LYMPHATICS: No lymph nodes palpable in the neck, axillae or groin. SKIN: No ulcer, no rash and no bleeding. JOINTS: No active deforming arthropathy. LABS: CBC within normal limits and 216. 2D echo with Doppler showed ejection fraction about 50-55% and also moderate to severe aortic stenosis. ASSESSMENT: 1. Chronic obstructive pulmonary disease acute exacerbation with acute purulent tracheobronchitis. 2. Troponin 0.110, possible acute evz-OJ-qtvcrbv-elevation myocardial infarction with chest pain. 3. Hyperlipidemia. 4. History of asthma. 5. History of chronic obstructive pulmonary disease. 6. Moderate to severe aortic stenosis. Recommended KARLIE. 7. Ascending aorta dilated to 3.9 cm. No change in the recent CAT scan. 8. History of hypertension. 9. History of pulmonary embolism. 10.History of anxiety. 11.History of neuropathy. 12.History of degenerative joint disease. 13.History of cholecystectomy. 14.History of nicotine dependence. 15.History of THC. 16.Mild protein calorie malnutrition with body mass index of 19.1. 17.FULL CODE. RECOMMENDATIONS AND DISCUSSION: This 50-year-old woman who presented with multiple complex medical issues, we will monitor the patient closely, continue the current medications. Continue symptomatic treatment. Continue the bronchodilators. Continue with IV steroids. Continue with antibiotics. Follow closely Dr. Nunn and Cardiology. Prognosis guarded because of multiple complex medical issues. Further recommendations to follow. A copy of this dictation being forwarded to Dr. Isael Palomares, who is the primary physician. See cardiology consultation for further details. MMODL / IJN: [id number] / [facility]
[2021-03-28] MEDS: methocarbamoL 750 MG TAB PO PRN (16:17)
[2021-03-28] MEDS: DESVENLAFAXINE SUCCINATE 50 MG TAB.ER.24H PO SCH ×2 (19:34)
[2021-03-28] MEDS: traZODone HCL 100 MG TAB PO SCH (19:35)
[2021-03-28] MEDS: PRIMIDONE 50 MG TAB PO SCH (19:36)
[2021-03-28] MEDS: NICOTINE 14MG/24HR PATCH TRANSDERM SCH (19:36)
[2021-03-28 20:05] LABS: Glucose,Whole Blood 197 mg/dL (75-99)
[2021-03-28] MEDS: SYMBICORT 80-4.5 MCG INHALER INHALATION SCH (20:41)
[2021-03-28] MEDS: SYMBICORT 160-4.5 MCG INHALER INHALATION SCH (20:41)
[2021-03-28] MEDS: INSULIN ASPART (NovoLOG) 100 UNIT/ML VIAL SQ SCH (20:50)
[2021-03-28] MEDS ORDERED: ARIPiprazole 10 MG TAB PO SCH (21:00)
[2021-03-28] MEDS ORDERED: APIXABAN 5 MG TAB PO SCH (21:00)
[2021-03-28] MEDS: IPRATROPIUM-ALBUTEROL 3 ML NEB INHALATION PRN (23:24)
[2021-03-28 23:57] VITALS: RESP 16
[2021-03-29] MEDS: methocarbamoL 750 MG TAB PO PRN (02:56)
[2021-03-29 06:12] LABS: Glucose,Whole Blood 144 mg/dL (75-99)
[2021-03-29] MEDS: methylPREDNISolone SOD SUCCI 125 MG/2 ML VIAL IV SCH (06:32)
[2021-03-29] MEDS: INSULIN ASPART (NovoLOG) 100 UNIT/ML VIAL SQ SCH (06:32)
[2021-03-29 07:42] LABS: African American GFR (CKD) >90 (>60 ml/min/1.73 sqM); Anion Gap 4 mmol/L; Basophils % (A) 0 %; Blood Urea Nitrogen 15 mg/dL (7-17); Calcium 9.7 mg/dL (8.4-10.2); Carbon Dioxide 30 mmol/L (22-30); Chloride 104 mmol/L (98-107); Eosinophils # (A) 0.1 k/uL (0-0.7); Eosinophils % (A) 1 %; Glucose 113 mg/dL (74-99); HCT 45.3 % (34.0-46.0); HGB 14.9 gm/dL (11.4-16.0); Lymphocytes # (A) 1.2 k/uL (1.0-4.8); Lymphocytes % (A) 12 %; MCH 32.3 pg (25.0-35.0); MCHC 32.8 g/dL (31.0-37.0); MCV 98.5 fL (80.0-100.0); Mean Platelet Volume 7.6; Monocytes # (A) 0.4 k/uL (0-1.0); Monocytes % (A) 4 %; Neutrophils # (A) 7.8 k/uL (1.3-7.7); Neutrophils % (A) 82 %; Non-African American GFR(CKD) 89 (>60 ml/min/1.73 sqM); Platelet Count 262 k/uL (150-450); Potassium 5.2 mmol/L (3.5-5.1); RDW 12.7 % (11.5-15.5); Sodium 138 mmol/L (137-145); WBC 9.5 k/uL (3.8-10.6)
[2021-03-29] MEDS: IPRATROPIUM-ALBUTEROL 3 ML NEB INHALATION SCH ×3 (08:42→15:58)
[2021-03-29] MEDS: SYMBICORT 160-4.5 MCG INHALER INHALATION SCH (08:42)
[2021-03-29] MEDS: SYMBICORT 80-4.5 MCG INHALER INHALATION SCH (08:43)
[2021-03-29] MEDS ORDERED: LORATADINE 10 MG TAB PO SCH (09:00)
[2021-03-29] MEDS: METOPROLOL TARTRATE 25 MG TAB PO SCH ×4 (09:00→17:20)
[2021-03-29] MEDS ORDERED: ATORVASTATIN 20 MG TAB PO SCH (09:15)
[2021-03-29] MEDS ORDERED: METOPROLOL SUCCINATE (ER) 50 MG TAB.ER.24H PO SCH (09:15)
[2021-03-29] MEDS ORDERED: METOPROLOL TARTRATE 50 MG TAB PO SCH (09:15)
[2021-03-29] MEDS: amLODIPine 5 MG TAB PO SCH (09:43)
[2021-03-29] MEDS: busPIRone HCl 5 MG TAB PO SCH (09:43)
[2021-03-29] MEDS: GABAPENTIN 300 MG CAP PO SCH (09:44)
[2021-03-29] MEDS: DOXYCYCLINE 100 MG CAP PO SCH (09:45)
[2021-03-29] MEDS: NICOTINE 14MG/24HR PATCH TRANSDERM SCH (09:45)
[2021-03-29] MEDS: HYDROcodone/APAP 10-325MG 1 EACH TAB PO PRN (10:01)
[2021-03-29] MEDS ORDERED: predniSONE 20 MG TAB PO SCH (10:15)
[2021-03-29 11:12] VITALS: TEMP 98.3
[2021-03-29 11:50] LABS: Glucose,Whole Blood 133 mg/dL (75-99)
--- NOTE | 2021-03-29 12:17 | P.PN ---
Subjective This is a pleasant 50-year-old female past medical history significant for COPD, pulmonary embolism diagnosed on 06/[address] chest (on Eliquis), hypertension, chronic nicotine dependence. She does not follow with a computer publisher. We have been asked to see in consultation for elevated troponin. Patient presents to the emergency department shortness of breath. Patient states that starting Saturday she had increased shortness of work. She works as a dining room cashier and walking back and forth from the counter in the store she had increasing shortness of breath. She states 3 weeks ago she saw a international recruiter the first week he started her on a prednisone taper. Second week she had no improvement in symptoms and he started her on another prednisone taper and antibiotic. Saturday she had worsening shortness of breath. She also has midsternal right-sided chest pain is nonradiating, nonexertional. She also has back pain but this is chronic. She does have increased shortness of breath with activity. But does not relieve with rest. She denies symptoms of orthopnea. She does have symptoms of PND. She states after med neb her symptoms are improved. She denies history of coronary artery disease, [place], stroke, diabetes. Family history includes Father had an AZ and stents placed, not sure what age. She denies family history of bicuspid aortic valve. She smokes about 1 pack per day. No alcohol use. Current home cardiac medications include amlodipine 5 mg daily, Eliquis 5 mg twice a day. 03/27-CT chest revealed, No evidence of PE, potential bicuspid aortic valve, ascending aorta continue medical remained aneurysmal measuring up to 4.6, hadley urements are not suddenly change from 06/15/2020, COPD with moderate to dense emphysema, minimal residual infiltrate would be difficult excluded the patient has infectious signs or symptoms, bilateral pleural parenchymal opacities in the right greater than left upper lobes probably could represent scarring and have a problem improved significantly from 06/15/2020. 03/28: Echocardiogram results revealed an EF of 50-55%, mild aortic regurgitation with peak/mean gradient of 44 most mercury/27 mmHg, functionally bicuspid aortic valve, moderate to severe aortic stenosis mild to moderate mitral regurgitation, mild tricuspid regurgitation, ascending aortic root is dilated and measures 3.9 cm 03/29: Patient seen at bedside, sitting up depending no acute distress. Continues to have some shortness of breath but improving. Overnight patient slightly tachycardic HR 90-100s. Telemetry tracings indicate sinus mechanism, heart rate in the 70-100 Laboratory reviewed, sodium 138, potassium 5.2, BUN 15, serum creatinine 0.78. Patient currently being maintained on Eliquis 5 mg twice a day, amlodipine 5 mg daily, atorvastatin 20 mg daily, Toprol titrate 25 mg twice a day, prednisone 40 mg daily, Duonebs QID, PHYSICAL EXAMINATION Blood pressure 110/74 heart rate 85 afebrile and maintaining oxygen saturation 96% on 3 L CONSTITUTIONAL: Short of breath but improving HEENT: Head is normocephalic. No JVD. CHEST EXAMINATION: Lungs with decreased air exchange, bilateral wheezing. Mild chest tendernes with palpation and with deep breathing. HEART EXAMINATION: Regular rate and rhythm. S1, S2 heard. Systolic murmur noted at right sternal border, No gallops or rub. ABDOMEN: Soft, nontender. Positive bowel sounds. EXTREMITIES: 2+ peripheral pulses, no lower extremity edema and no calf tenderness. NEUROLOGIC EXAMINATION: Patient is awake, alert and oriented x3. ASSESSMENT Chest pain, atypical, appears more pleuritic in nature Elevated troponin, most likely due to supply and demand mismatch, not indicative of acute coronary syndrome. No ischemia noted on EKG. Shortness of breath COPD exacerbation History of pulmonary embolism noted on CT chest incidentally on 06/15/2020- Patient has been treated with Eliquis 5mg BID Bicuspid aortic valve Moderate to severe aortic stenosis Aortic aneursym Hyperkalemia PLAN At this time due to patient respiratory status we will not perform a KARLIE at this time, will most likely perform outpatient, this was discussed with the patient and family at bedside Will will continue amlodipine 5 mg daily Change metoprolol tartrate dosing to 50mg in the morning and 25mg at night. Continue patient's Eliquis 5mg BID Smoking cessation discussed and highly recommended. Follow up with Dr. Negron, when medically stable for discharge. Further recommendations based on clinical course Nurse Practitioner note has been reviewed, I agree with a documented findings and plan of care. Patient was seen and examined. Objective - Vital Signs Vital signs: Vital Signs Temp 98.3 F 03/29/21 08:00 Pulse 100 03/29/21 08:56 Resp 16 03/29/21 08:00 BP 110/74 03/29/21 08:00 Pulse Ox 96 03/29/21 08:00 Intake & Output 03/28/21 03/29/21 03/29/21 18:59 06:59 18:59 Intake Total 1273 240 480 Output Total 0 320 Balance 1273 -80 480 Weight 53 kg Intake: IV 20 0.9 20 Oral 1253 240 480 Output: Urine 0 320 Other: Voiding Method Toilet Toilet Toilet # Voids 4 1 1 - Labs CBC & Chem 7: 03/29/21 07:04 03/29/21 07:04 Labs: Abnormal Lab Results - Last 24 Hours (Table) 03/28/21 03/28/21 03/29/21 Range/Units 05:10 20:04 06:11 Neutrophils # (1.3-7.7) k/uL Potassium (3.5-5.1) mmol/L Glucose (74-99) mg/dL POC Glucose (mg/dL) 197 H 144 H (75-99) mg/dL Cholesterol 216 H (0-200) mg/dL HDL Cholesterol 76.0 H (40.0-60.0) mg/dL 03/29/21 03/29/21 03/29/21 Range/Units 07:04 07:04 11:48 Neutrophils # 7.8 H (1.3-7.7) k/uL Potassium 5.2 H (3.5-5.1) mmol/L Glucose 113 H (74-99) mg/dL POC Glucose (mg/dL) 133 H (75-99) mg/dL Cholesterol (0-200) mg/dL HDL Cholesterol (40.0-60.0) mg/dL
--- NOTE | 2021-03-29 12:41 | P.PN ---
Subjective Progress Note Date: 03/29/21 Principal diagnosis: Shortness of breath This is a 50-year-old white female patient who follows with Dr. Adler in the pulmonary clinic for a history of severe COPD with a baseline FEV1 of 33% of predicted consistent with stage III COPD. Patient is on home oxygen, but not on maintenance prednisone. Other medical history is significant for chronic neck and back pain, hypertension, previous episodes of pneumonia, anxiety, pulmonary embolism on Eliquis, tobacco dependence syndrome. Patient continues to smoke, she carries [id number] smoking history, and is currently smoking 1 pack a day. She states she was treated on an outpatient basis for acute exacerbation of COPD with Depo-Medrol 80 mg injection, she was given 7 day course of doxycycline 100 mg twice daily, she was started on Spiriva resting mats inhaler 2 puffs daily, and she was given an additional prednisone taper. Patient states as soon as her taper of her prednisone had finished her breathing became worse, she is complaining of shortness of breath, cough, wheezing. She presented to the emergency department on 03/27/2021 for evaluation. She states her PCP did call in a prescription of antibiotics and steroids for her, but in view of worsening symptoms she came into the emergency department. She did report some chest tightness as well. She had diffuse bilateral wheezing. Denied any fever or ch ills. Her chest x-ray showed interval improvement in the right-sided patchy airspace disease with minimal right upper lung zone airspace disease versus scarring. Her white count was 11.5, hemoglobin was 14.4, d-dimer was negative at 0.3, electrolytes and renal profile were unremarkable, LFTs were within normal limits, she did have troponin elevation of 0.114, 0.110, and 0.101. She was given a dose of IV steroids in the emergency department, breathing treatments. CTA chest was completed showing COPD with moderate to advanced emphysema, no evidence of pulmonary embolism, there was a possibility of bicuspid aortic valve, and aneurysmal ascending aorta and aortic root measuring 4.6 cm. Vascular surgery referral for future maintenance was recommended. There was irregular pleural parenchymal opacities in the right greater than left upper lobes probably representing scarring that seem to have improved compared to previous CT scans of the chest. On 03/29/2021 patient seen in follow-up on selective care unit, she is breathing easier today, she is on 3 L of oxygen pulse ox is 96%, vital signs have been stable, and she is afebrile, patient's troponins were elevated on admission, with the highest one of 0.114. Cardiology consultation was requested, an echocardiogram showed possibility of bicuspid aortic valve with moderate to severe aortic valve stenosis. Outpatient transesophageal echocardiogram was recommended by cardiology. Overall she states her breathing is improving, feels less short of breath, appears to be breathing comfortably on today's exam, she continues on nebulized bronchodilators, empiric antibiotics, and IV steroids. Less bronchospastic, less congested Objective - Vital Signs Vital signs: Vital Signs Temp 98.3 F 03/29/21 08:00 Pulse 72 03/29/21 12:15 Resp 16 03/29/21 08:00 BP 110/74 03/29/21 08:00 Pulse Ox 96 03/29/21 08:00 Intake & Output 03/28/21 03/29/21 03/29/21 18:59 06:59 18:59 Intake Total 1273 240 480 Output Total 0 320 Balance 1273 -80 480 Weight 53 kg Intake: IV 20 0.9 20 Oral 1253 240 480 Output: Urine 0 320 Other: Voiding Method Toilet Toilet Toilet # Voids 4 1 1 - Exam GENERAL EXAM: Alert, very pleasant 50-year-old white female, on 3 L of oxygen and the pulse ox of 97% comfortable in no apparent distress. HEAD: Normocephalic/atraumatic. EYES: Normal reaction of pupils, equal size. Conjunctiva pink, sclera white. NOSE: Clear with pink turbinates. THROAT: No erythema or exudates. NECK: No masses, no JVD, no thyroid enlargement, no adenopathy. CHEST: No chest wall deformity. Symmetrical expansion. LUNGS: Equal air entry with diminished breath sounds, with expiratory wheezing CVS: Regular rate and rhythm, normal S1 and S2, no gallops, no murmurs, no rubs ABDOMEN: Soft, nontender. No hepatosplenomegaly, normal bowel sounds, no guard ing or rigidity. EXTREMITIES: No clubbing, no edema, no cyanosis, 2+ pulses and upper and lower extremities. MUSCULOSKELETAL: Muscle strength and tone normal. SPINE: No scoliosis or deformity SKIN: No rashes CENTRAL NERVOUS SYSTEM: Alert and oriented -3. No focal deficits, tone is normal in all 4 extremities. PSYCHIATRIC: Alert and oriented -3. Appropriate affect. Intact judgment and insight. - Labs CBC & Chem 7: 03/29/21 07:04 03/29/21 07:04 Labs: Abnormal Lab Results - Last 24 Hours (Table) 03/28/21 03/28/21 03/29/21 Range/Units 05:10 20:04 06:11 Neutrophils # (1.3-7.7) k/uL Potassium (3.5-5.1) mmol/L Glucose (74-99) mg/dL POC Glucose (mg/dL) 197 H 144 H (75-99) mg/dL Cholesterol 216 H (0-200) mg/dL HDL Cholesterol 76.0 H (40.0-60.0) mg/dL 03/29/21 03/29/21 03/29/21 Range/Units 07:04 07:04 11:48 Neutrophils # 7.8 H (1.3-7.7) k/uL Potassium 5.2 H (3.5-5.1) mmol/L Glucose 113 H (74-99) mg/dL POC Glucose (mg/dL) 133 H (75-99) mg/dL Cholesterol (0-200) mg/dL HDL Cholesterol (40.0-60.0) mg/dL Assessment and Plan Plan: Assessment: #1. Acute exacerbation of chronic obstructive pulmonary disease, chest x-ray showed patchy airspace disease in the right lung, likely related to scarring which is actually improved from her last chest x-ray from 2019. CTA chest sh owed COPD/emphysema, no evidence of pulmonary embolism #2. Failure of outpatient treatment, patient had recently completed a course of antibiotics and second round of outpatient prednisone #3. Elevated troponins, patient is being followed by cardiology, rule out possibility of non-STEMI #4. Pleural parenchymal opacities in the right greater than left upper lobes likely representing scarring is seen on the CT chest #5. Aortic root aneurysmal enlargement measuring up to 4.6 cm seen on the CTA chest and possible bicuspid aortic valve #6. Advanced COPD, with baseline FEV1 of 33% of predicted, consistent with stage III COPD, on home oxygen #7. Chronic and ongoing history of nicotine dependence, patient continued to smoke 1 pack a day, carries 38 years of smoking #8. History of pulmonary embolism on Eliquis #9. Anxiety #10. History of neuropathy on the right side #11. Chronic neck and back pain #12. History of marijuana use Plan: Patient is breathing easier Vital signs are stable Less short of breath and less congested Transition IV steroids to oral prednisone Continue doxycycline and nebulized bronchodilators Cardiology recs regarding moderate to severe aortic valve stenosis, KARLIE likely on an outpatient basis We'll continue to follow I performed a history & physical examination of the patient and discussed their management with my nurse practitioner, Caroline Hughes. I reviewed the nurse practitioner's note and agree with the documented findings and plan of care. Lung sounds are positive for diffuse wheezes throughout the lung moctezuma. The findings and the impression was discussed with the patient. I attest to the documentation by the nurse practitioner. Time with Patient: Less than 30
[2021-03-29 14:37] VITALS: BP 100/66
--- NOTE | 2021-03-29 16:06 | P.DS ---
Providers Date of admission: 03/27/21 17:14 Attending physician: Allison Mcelroy Consults: 03/27/21 17:08 Consult Physician Urgent Consulting Provider: Inocente Mcpherson Consult Reason/Comments: NSTEMI Do you want consulting provider notified?: Yes 03/28/21 08:54 Consult Physician Urgent Consulting Provider: Amada Nunn Consult Reason/Comments: copd exac/ known patient Do you want consulting provider notified?: Yes Primary care physician: Isael [facility] Course: 50-year-old female with advanced COPD FEV1 of 33% is admitted for COPD exacerbation presently on 2 L bottles and can use to smoke and willing to quit SMOKING. Patient is also found to have elevated troponins which were believed to be secondary to hypoxemia. Patient is cleared by pulmonary and cardiology and will be discharged today. PHYSICAL EXAMINATION: GENERAL: The patient is alert and oriented x3, not in any acute distress. Well developed, well nourished. HEENT: Pupils are round and equally reacting to light. EOMI. No scleral icterus. No conjunctival pallor. Normocephalic, atraumatic. No pharyngeal erythema. No thyromegaly. CARDIOVASCULAR: S1 and S2 present. No murmurs, rubs, or gallops. PULMONARY: Chest is clear to auscultation, no wheezing or crackles. ABDOMEN: Soft, nontender, nondistended, normoactive bowel sounds. No palpable organomegaly. MUSCULOSKELETAL: No joint swelling or deformity. EXTREMITIES: No cyanosis, clubbing, or pedal edema. NEUROLOGICAL: Gross neurological examination did not reveal any focal deficits. SKIN: No rashes. -Acute on chronic hypoxic and hypercapnic respiratory failure secondary to COPD exacerbation -Elevated troponin secondary to hypoxemia -Continue nicotine use -History of PE on Eliquis Neck and back pain with neuropathy Patient Condition at Discharge: Good Plan - Discharge Summary Discharge Rx Participant: No New Discharge Prescriptions: New Metoprolol Tartrate [Lopressor] 50 mg PO DAILY #30 tab Doxycycline Monohydrate [Monodox] 100 mg PO Q12HR #6 cap Famotidine [Pepcid] 20 mg PO BID #30 tablet Metoprolol Tartrate [Lopressor] 25 mg PO DAILY@1600 #30 tab predniSONE 10 mg PO DAILY #30 tab Continue Primidone [Mysoline] 50 mg PO HS Cyanocobalamin [Vitamin B-12 Injection] 1,000 mcg IM Q28D Desvenlafaxine [Pristiq ER] 100 mg PO HS Desvenlafaxine Succinate [Pristiq ER] 50 mg PO HS Butalbital/Aspirin/Caffeine [Vmfsjk-Thmtxnl-Iluhyssr 50-325-40 mg] 1 tab PO Q8H PRN PRN Reason: Headache Albuterol Sulfate [Ventolin HFA] 2 puff INHALATION RT-Q6H PRN PRN Reason: Shortness Of Breath Fluticasone Propion/Salmeterol [Wixela 250-50 Inhub] 1 puff INHALATION RT-BID Ipratropium-Albuterol Nebulize [Duoneb 0.5 mg-3 mg/3 ml Soln] 3 ml INHALATION RT-Q4H PRN PRN Reason: Shortness Of Breath traZODone HCL 200 mg PO HS ARIPiprazole [Abilify] 10 mg PO HS Benzonatate [Tessalon Perles] 200 mg PO TID PRN PRN Reason: Cough busPIRone HCL [Buspar] 15 mg PO BID Fexofenadine HCl [Vanessa Allergy] 180 mg PO DAILY guaiFENesin [guaiFENesin Oral Solution] 10 ml PO Q4H PRN PRN Reason: Cough HYDROcodone/APAP 7.5-325MG [[employer] 7.5-325] 1 tab PO Q6H PRN PRN Reason: Pain Gabapentin 300 mg PO BID Apixaban [Eliquis] 5 mg PO BID methocarbamoL [Robaxin] 750 mg PO TID PRN PRN Reason: Pain Discontinued amLODIPine [Norvasc] 5 mg PO DAILY Levofloxacin [Levaquin] 750 mg PO DAILY Discharge Medication List Butalbital/Aspirin/Caffeine [Jbhxbs-Wrbmjig-Upnmtbdu 50-325-40 mg] 1 tab PO Q8H PRN 11/30/19 [History] Cyanocobalamin [Vitamin B-12 Injection] 1,000 mcg IM Q28D 11/30/19 [History] Desvenlafaxine Succinate [Pristiq ER] 50 mg PO HS 11/30/19 [History] Desvenlafaxine [Pristiq ER] 100 mg PO HS 11/30/19 [History] Primidone [Mysoline] 50 mg PO HS 11/30/19 [History] Albuterol Sulfate [Ventolin HFA] 2 puff INHALATION RT-Q6H PRN 06/14/20 [History] Fluticasone Propion/Salmeterol [[place]ixela 250-50 Inhub] 1 puff INHALATION RT-BID 06/14/20 [History] Ipratropium-Albuterol Nebulize [Duoneb 0.5 mg-3 mg/3 ml Soln] 3 ml INHALATION RT-Q4H PRN 06/14/20 [History] traZODone HCL 200 mg PO HS 06/14/20 [History] ARIPiprazole [Abilify] 10 mg PO HS 03/27/21 [History] Apixaban [Eliquis] 5 mg PO BID 03/27/21 [History] Benzonatate [Tessalon Perles] 200 mg PO TID PRN 03/27/21 [History] Fexofenadine HCl [Vanessa Allergy] 180 mg PO DAILY 03/27/21 [History] Gabapentin 300 mg PO BID 03/27/21 [History] HYDROcodone/APAP 7.5-325MG [[employer] 7.5-325] 1 tab PO Q6H PRN 03/27/21 [History] busPIRone HCL [Buspar] 15 mg PO BID 03/27/21 [History] guaiFENesin [guaiFENesin Oral Solution] 10 ml PO Q4H PRN 03/27/21 [History] methocarbamoL [Robaxin] 750 mg PO TID PRN 03/27/21 [History] Doxycycline Monohydrate [Monodox] 100 mg PO Q12HR #6 cap 03/29/21 [Rx] Famotidine [Pepcid] 20 mg PO BID #30 tablet 03/29/21 [Rx] Metoprolol Tartrate [Lopressor] 25 mg PO DAILY@1600 #30 tab 03/29/21 [Rx] Metoprolol Tartrate [Lopressor] 50 mg PO DAILY #30 tab 03/29/21 [Rx] predniSONE 10 mg PO DAILY #30 tab 03/29/21 [Rx] Follow up Appointment(s)/Referral(s): Martin Negron MD [STAFF PHYSICIAN] - 2 Weeks Isael Palomares DO [Primary Care Provider] - 1-2 days Patient Instructions/Handouts: Heart Attack (GEN), Heart Healthy Diet (DC), COPD (Chronic Obstructive Pulmonary Disease) (DC) Activity/Diet/Wound Care/Special Instructions: Cardiac and low potassium diet Discharge Disposition: HOME SELF-CARE
[2021-03-29 16:14] VITALS: PULSE 79
[2021-03-29] MEDS ORDERED: APIXABAN 5 MG TAB PO SCH (21:00)
[2021-04-03] MEDS ORDERED: CYANOCOBALAMIN 1,000 MCG/ML 1 ML VIAL IM SCH (09:00)
== END 2021-03-29 17:29 | disposition home or self-care (01) | DRG 190 ==
LOC: EC 12:54 → 3SCARD 17:14
PROVIDERS: ADMIT Hospitalist; ATTEND Hospitalist
DX: J44.1 Chronic obstructive pulmonary disease with (acute) exacerbation (principal); J96.22 Acute and chronic respiratory failure with hypercapnia; J96.21 Acute and chronic respiratory failure with hypoxia; E44.1 Mild protein-calorie malnutrition; Q23.1 Congenital insufficiency of aortic valve; Z68.1 Body mass index [BMI] 19.9 or less, adult; J44.9 Chronic obstructive pulmonary disease, unspecified; F17.210 Nicotine dependence, cigarettes, uncomplicated; D72.829 Elevated white blood cell count, unspecified; E78.5 Hyperlipidemia, unspecified; E87.5 Hyperkalemia; F41.9 Anxiety disorder, unspecified; G89.29 Other chronic pain; M19.90 Unspecified osteoarthritis, unspecified site; I77.819 Aortic ectasia, unspecified site; M54.2 Cervicalgia; R77.8 Other specified abnormalities of plasma proteins; M54.9 Dorsalgia, unspecified; J45.909 Unspecified asthma, uncomplicated; I10 Essential (primary) hypertension; I08.3 Combined rheumatic disorders of mitral, aortic and tricuspid valves; G62.9 Polyneuropathy, unspecified; Z79.01 Long term (current) use of anticoagulants; Z79.899 Other long term (current) drug therapy; Z82.49 Family history of ischemic heart disease and other diseases of the circulatory system; Z86.711 Personal history of pulmonary embolism; Z87.01 Personal history of pneumonia (recurrent); Z90.49 Acquired absence of other specified parts of digestive tract; Z90.710 Acquired absence of both cervix and uterus; Z99.81 Dependence on supplemental oxygen; Z90.89 Acquired absence of other organs; Z88.8 Allergy status to other drugs, medicaments and biological substances
CPT/HCPCS: 36415; 71046; 71275; 80048; 80053; 80061; 83735; 84484; 85025; 85379; 85610; 85730; 93005; 93306; 94640; 94760; 99285

== ENCOUNTER → 2021-05-26 | Outpatient (CLI) | payer OTHER ==
--- NOTE | 2021-05-26 07:59 | US ---
EXAMINATION TYPE: US venous doppler duplex LE DATE OF EXAM: 05/26/2021 7:36 AM COMPARISON: NONE CLINICAL HISTORY: Z86.711 HX PULMONARY EMBOLISM. Patient is currently taking blood thinners pain. SIDE PERFORMED: Bilateral TECHNIQUE: The lower extremity deep venous system is examined utilizing real time linear array sonog tamera with graded compression, doppler sonography and color-flow sonography. VESSELS IMAGED: Common Femoral Vein Deep Femoral Vein Greater Saphenous Vein * Femoral Vein Popliteal Vein Small Saphenous Vein * Proximal Calf Veins (* superficial vessels) Right Leg: Negative for DVT Left Leg: Negative for DVT Grayscale, color doppler, spectral doppler imaging performed of the deep veins of the bilateral lower extremities. There is normal flow, compressibility, vascular waveforms. IMPRESSION: No ultrasound evidence for acute DVT in either lower extremity.
== END | disposition home or self-care (01) ==
LOC: RADUSWWP 07:09
PROVIDERS: ATTEND Internal Medicine Hematology & Oncology
DX: M79.604 Pain in right leg (principal); M79.605 Pain in left leg; Z86.711 Personal history of pulmonary embolism
CPT/HCPCS: 93970

== ENCOUNTER → 2021-06-20 | Outpatient (CLI) | payer OTHER ==
--- NOTE | 2021-06-20 15:50 | US ---
EXAMINATION TYPE: US liver DATE OF EXAM: 06/20/2021 COMPARISON: NONE CLINICAL HISTORY: 50-year-old female R74.8 Abnormal levels of other serum enzymes. Gallbladder remove d 1989 EXAM MEASUREMENTS: Liver Length: 18.1 cm CBD: 0.9 cm Right Kidney: 10.3x3.6x4.5 cm Pancreas: wnl Liver: Mildly enlarged but with overall homogeneous echotexture and no focal lesion. Gallbladder: Removed CBD: Dilated at 9 mm. Right Kidney: No hydronephrosis. Fusiform ectasia distal abdominal aorta at 2.5 cm. IMPRESSION: 1. Mild hepatomegaly at 18.1 cm but otherwise with relatively normal homogeneous sonographic appearan ce. 2. Dilated bile duct at 9 mm may be due to postcholecystectomy status. Correlate with alkaline phosph atase and bilirubin levels. 3. Incidental fusiform ectasia of the distal abdominal aorta at 2.5 cm.
== END | disposition home or self-care (01) ==
LOC: RADUSWWP 09:12
PROVIDERS: ATTEND Family Medicine
DX: R16.0 Hepatomegaly, not elsewhere classified (principal); K83.8 Other specified diseases of biliary tract; Z90.49 Acquired absence of other specified parts of digestive tract; I77.811 Abdominal aortic ectasia
CPT/HCPCS: 76705

== ENCOUNTER 2021-09-18 04:32 | Inpatient (IN) | payer OTHER ==
--- NOTE | 2021-09-18 05:04 | XR ---
EXAMINATION TYPE: XR chest 1V portable DATE OF EXAM: 09/18/2021 COMPARISON: 03/27/2021 HISTORY: Short of breath TECHNIQUE: FINDINGS: Heart is normal. Lungs are clear of consolidation. There are no hilar masses. Costophrenic angles are clear. There is some mild pleural and pulmonary scarring at the lung apices. There is some flattening of the diaphragm. IMPRESSION: COPD. No acute lung disease. Scarring at the lung apices. No change.
[2021-09-18 05:20] LABS: ALT 13 U/L (4-34); AST 23 U/L (14-36); African American GFR (CKD) >90 (>60 ml/min/1.73 sqM); Albumin 3.7 g/dL (3.5-5.0); Alkaline Phosphatase 93 U/L (38-126); Anion Gap 9 mmol/L; Blood Urea Nitrogen 7 mg/dL (7-17); Calcium 8.7 mg/dL (8.4-10.2); Carbon Dioxide 26 mmol/L (22-30); Chloride 100 mmol/L (98-107); Glucose 252 mg/dL (74-99); Non-African American GFR(CKD) 82 (>60 ml/min/1.73 sqM); Potassium 4.6 mmol/L (3.5-5.1); Sodium 135 mmol/L (137-145); Total Bilirubin 0.3 mg/dL (0.2-1.3); Total Protein 6.4 g/dL (6.3-8.2)
[2021-09-18 05:36] LABS: INR 0.9 (<1.2); Partial Thromboplastin Time 22.3 sec (22.0-30.0); Prothrombin Time 9.8 sec (9.0-12.0)
[2021-09-18 05:55] LABS: Basophils % (A) 0 %; Eosinophils # (A) 0.1 k/uL (0-0.7); Eosinophils % (A) 1 %; HCT 41.6 % (34.0-46.0); HGB 13.7 gm/dL (11.4-16.0); Lymphocytes # (A) 1.1 k/uL (1.0-4.8); Lymphocytes % (A) 7 %; MCH 33.2 pg (25.0-35.0); MCHC 32.9 g/dL (31.0-37.0); MCV 100.8 fL (80.0-100.0); Mean Platelet Volume 8.6; Monocytes # (A) 0.9 k/uL (0-1.0); Monocytes % (A) 6 %; Neutrophils # (A) 13.1 k/uL (1.3-7.7); Neutrophils % (A) 86 %; Platelet Count 192 k/uL (150-450); RBC 4.13 m/uL (3.80-5.40); RDW 12.4 % (11.5-15.5); WBC 15.3 k/uL (3.8-10.6)
--- NOTE | 2021-09-18 06:17 | ED ---
SOB HPI - General Chief Complaint: Shortness of Breath Stated Complaint: CHEO Time Seen by Provider: 09/18/21 04:34 Source: EMS Mode of arrival: EMS Limitations: physical limitation (Severe dyspnea) - History of Present Illness MD Complaint: shortness of breath, cough -: hour(s) Severity scale (1-10): 0 Consistency: constant Improves With: upright position Worsens With: nothing Known History Of: COPD Associated Symptoms: denies other symptoms, cough Treatments Prior to Arrival: oxygen, bronchodilator, NIPPV, other - Related Data Home Oxygen Therapy: Yes Home Medications Medication Instructions Recorded Confirmed Butalbital/Aspirin/Caffeine 1 tab PO Q8H PRN 11/30/19 03/27/21 [Odmxbn-Rixbwsb-Miprrwyu 50-325-40 mg] Cyanocobalamin [Vitamin B-12 1,000 mcg IM Q28D 11/30/19 03/27/21 Injection] Desvenlafaxine Succinate [Pristiq 50 mg PO HS 11/30/19 03/27/21 ER] Desvenlafaxine [Pristiq ER] 100 mg PO HS 11/30/19 03/27/21 Primidone [Mysoline] 50 mg PO HS 11/30/19 03/27/21 Albuterol Sulfate [Ventolin HFA] 2 puff INHALATION RT-Q6H PRN 06/14/20 03/27/21 Fluticasone Propion/Salmeterol 1 puff INHALATION RT-BID 06/14/20 03/27/21 [Wixela 250-50 Inhub] Ipratropium-Albuterol Nebulize 3 ml INHALATION RT-Q4H PRN 06/14/20 03/27/21 [Duoneb 0.5 mg-3 mg/3 ml Soln] traZODone HCL 200 mg PO HS 06/14/20 03/27/21 ARIPiprazole [Abilify] 10 mg PO HS 03/27/21 03/27/21 Apixaban [Eliquis] 5 mg PO BID 03/27/21 03/27/21 Benzonatate [Tessalon Perles] 200 mg PO TID PRN 03/27/21 03/27/21 Fexofenadine HCl [Vanessa Allergy] 180 mg PO DAILY 03/27/21 03/27/21 Gabapentin 300 mg PO BID 03/27/21 03/27/21 HYDROcodone/APAP 7.5-325MG [[place] 1 tab PO Q6H PRN 03/27/21 03/27/21 7.5-325] busPIRone HCL [Buspar] 15 mg PO BID 03/27/21 03/27/21 guaiFENesin [guaiFENesin Oral 10 ml PO Q4H PRN 03/27/21 03/27/21 Solution] methocarbamoL [Robaxin] 750 mg PO TID PRN 03/27/21 03/27/21 Previous Rx's Medication Instructions Recorded Doxycycline Monohydrate [Monodox] 100 mg PO Q12HR #6 cap 03/29/21 Famotidine [Pepcid] 20 mg PO BID #30 tablet 03/29/21 Metoprolol Tartrate [Lopressor] 25 mg PO DAILY@1600 #30 tab 03/29/21 Metoprolol Tartrate [Lopressor] 50 mg PO DAILY #30 tab 03/29/21 predniSONE 10 mg PO DAILY #30 tab 03/29/21 Allergies Allergy/AdvReac Type Severity Reaction Status Date / Time amitriptyline [From Elavil] Allergy Unknown Verified 03/27/21 12:59 pregabalin [From Lyrica] Allergy Unknown Verified 03/27/21 12:59 Review of Systems ROS Statement: Those systems with pertinent positive or pertinent negative responses have been documented in the HPI. ROS Other: All systems not noted in ROS Statement are negative. Limitations: ROS unobtainable due to patients medical condition (Dyspnea) Constitutional: Denies: fever, chills Respiratory: Reports: cough, dyspnea, wheezes Cardiovascular: Reports: palpitations. Denies: chest pain, edema, syncope Gastrointestinal: Denies: abdominal pain, vomiting, diarrhea Genitourinary: Denies: dysuria Musculoskeletal: Denies: back pain Skin: Denies: rash Neurological: Denies: headache, weakness Past Medical History Past Medical History: Asthma, COPD, Hypertension, Pulmonary Embolus (PE) Additional Past Medical History / Comment(s): anxiety, neuropathy rt side, back and neck pain. Moderna vaccine History of Any Multi-Drug Resistant Organisms: None Reported Past Surgical History: Adenoidectomy, Cholecystectomy, Hysterectomy, To nsillectomy Additional Past Surgical History / Comment(s): ablation to back, brain aneurysm Past Psychological History: No Psychological Hx Reported Smoking Status: Current every day smoker Past Alcohol Use History: Rare Past Drug Use History: Marijuana - Past Family History Mother Family Medical History: No Reported History General Exam Limitations: no limitations General appearance: alert, in no apparent distress, anxious Head exam: Present: atraumatic, normocephalic Eye exam: Present: normal appearance. Absent: scleral icterus, conjunctival injection Neck exam: Present: normal inspection, full ROM Respiratory exam: Present: respiratory distress, wheezes, accessory muscle use, decreased breath sounds. Absent: rales, rhonchi, stridor Cardiovascular Exam: Present: tachycardia, normal heart sounds. Absent: systolic murmur, diastolic murmur, rubs, gallop GI/Abdominal exam: Present: soft. Absent: distended, tenderness, guarding, rebound, rigid, mass Extremities exam: Present: normal inspection, normal capillary refill. Absent: pedal edema, calf tenderness Back exam: Present: normal inspection. Absent: CVA tenderness (R), CVA tenderne ss (L) Neurological exam: Present: alert Skin exam: Present: warm, dry, intact, normal color. Absent: rash Course Vital Signs 09/18/21 04:38 Temperature 97.6 F Pulse Rate 144 H Respiratory 12 Rate Blood Pressure 120/99 O2 Sat by Pulse 99 Oximetry Medical Decision Making - Lab Data Result diagrams: 09/18/21 04:54 09/18/21 04:54 Lab Results 09/18/21 09/18/21 09/18/21 Range/Units 04:54 04:54 04:54 WBC 15.3 H (3.8-10.6) k/uL RBC 4.13 (3.80-5.40) m/uL Hgb 13.7 (11.4-16.0) gm/dL Hct 41.6 (34.0-46.0) % MCV 100.8 H (80.0-100.0) fL MCH 33.2 (25.0-35.0) pg MCHC 32.9 (31.0-37.0) g/dL RDW 12.4 (11.5-15.5) % Plt Count 192 (150-450) k/uL MPV 8.6 Neutrophils % 86 % Lymphocytes % 7 % Monocytes % 6 % Eosinophils % 1 % Basophils % 0 % Neutrophils # 13.1 H (1.3-7.7) k/uL Lymphocytes # 1.1 (1.0-4.8) k/uL Monocytes # 0.9 (0-1.0) k/uL Eosinophils # 0.1 (0-0.7) k/uL Basophils # 0.0 (0-0.2) k/uL PT 9.8 (9.0-12.0) sec INR 0.9 (<1.2) APTT 22.3 (22.0-30.0) sec D-Dimer 1.02 H (<0.60) mg/L FEU Sodium 135 L (137-145) mmol/L Potassium 4.6 (3.5-5.1) mmol/L Chloride 100 (98-107) mmol/L Carbon Dioxide 26 (22-30) mmol/L Anion Gap 9 mmol/L BUN 7 (7-17) mg/dL Creatinine 0.83 (0.52-1.04) mg/dL Est GFR (CKD-EPI)AfAm >90 (>60 ml/min/1.73 sqM) Est GFR (CKD-EPI)NonAf 82 (>60 ml/min/1.73 sqM) Glucose 252 H (74-99) mg/dL Plasma Lactic Acid Juan (0.7-2.0) mmol/L Calcium 8.7 (8.4-10.2) mg/dL Total Bilirubin 0.3 (0.2-1.3) mg/dL AST 23 (14-36) U/L ALT 13 (4-34) U/L Alkaline Phosphatase 93 (38-126) U/L Troponin I (0.000-0.034) ng/mL NT-Pro-B Natriuret Pep pg/mL Total Protein 6.4 (6.3-8.2) g/dL Albumin 3.7 (3.5-5.0) g/dL 09/18/21 09/18/21 09/18/21 Range/Units 04:54 04:54 04:54 WBC (3.8-10.6) k/uL RBC (3.80-5.40) m/uL Hgb (11.4-16.0) gm/dL Hct (34.0-46.0) % MCV (80.0-100.0) fL MCH (25.0-35.0) pg MCHC (31.0-37.0) g/dL RDW (11.5-15.5) % Plt Count (150-450) k/uL MPV Neutrophils % % Lymphocytes % % Monocytes % % Eosinophils % % Basophils % % Neutrophils # (1.3-7.7) k/uL Lymphocytes # (1.0-4.8) k/uL Monocytes # (0-1.0) k/uL Eosinophils # (0-0.7) k/uL Basophils # (0-0.2) k/uL PT (9.0-12.0) sec INR (<1.2) APTT (22.0-30.0) sec D-Dimer (<0.60) mg/L FEU Sodium (137-145) mmol/L Potassium (3.5-5.1) mmol/L Chloride (98-107) mmol/L Carbon Dioxide (22-30) mmol/L Anion Gap mmol/L BUN (7-17) mg/dL Creatinine (0.52-1.04) mg/dL Est GFR (CKD-EPI)AfAm (>60 ml/min/1.73 sqM) Est GFR (CKD-EPI)NonAf (>60 ml/min/1.73 sqM) Glucose (74-99) mg/dL Plasma Lactic Acid Juan 0.8 (0.7-2.0) mmol/L Calcium (8.4-10.2) mg/dL Total Bilirubin (0.2-1.3) mg/dL AST (14-36) U/L ALT (4-34) U/L Alkaline Phosphatase (38-126) U/L Troponin I 0.117 H* (0.000-0.034) ng/mL NT-Pro-B Natriuret Pep 183 pg/mL Total Protein (6.3-8.2) g/dL Albumin (3.5-5.0) g/dL - EKG Data -: EKG Interpreted by Me EKG shows normal: sinus rhythm, axis (Normal), intervals (Normal), QRS complexes (Normal) Rate: tachycardia (Rate 137 bpm) Interpretation: nonspecific ST-T wave changes Disposition Clinical Impression: COPD exacerbation Disposition: ADMITTED IP TO THIS HOSP Condition: Serious
[2021-09-18] MEDS ORDERED: SYMBICORT 80-4.5 MCG INHALER INHALATION SCH (08:00)
--- NOTE | 2021-09-18 08:49 | CT ---
EXAMINATION TYPE: CT chest angio for PE DATE OF EXAM: 09/18/2021 COMPARISON: 03/27/2021 and radiograph same day HISTORY: 51 year-old female shortness of breath, CHEO, Possible PE TECHNIQUE: Contiguous axial scanning of the chest performed with IV Contrast, patient injected with 1 00 ml mL of Isovue 370. Coronal/sagittal MIP reconstructions performed. CT DLP: 217 mGycm Automated exposure control for dose reduction was used. FINDINGS: Bilateral breast implants. Heart normal size without pericardial effusion. No flattening of the interventricular septum. Slight reflux of contrast into the hepatic veins however is noted. Moderate atherosclerotic calcifications w ithin the LAD. Aortic root aneurysmal at 4.1 cm, unchanged. Ascending aorta is aneurysmal at 4.6 cm, relatively unch anged from the recent 03/27/2021 exam. Bovine configuration to the aortic arch. Satisfactory opacification of the pulmonary arterial system. No pulmonary embolus is identified. New 1.2 cm right hilar lymph node probably reactive. Moderate to advanced emphysematous redemonstrated. Multifocal areas of architectural distortion in th e upper lobes with irregular pleural parenchymal opacities are redemonstrated. More focal areas in th e right upper lobe measuring 1.3 x 2.3 cm mass in anteromedial left mid lung measuring 1.1 x 0.6 cm a ppear relatively unchanged with continued follow-up to document further stability. Moderate bronchial wall thickening. Additional areas of pleural parenchymal opacity are also similar. Possible ectatic infrarenal abdominal aorta partially visualized. Bones: Mild degenerative disc disease in the thoracic spine. There is some oval lucent areas within a few left-sided costochondral junctions. The multiplicity suggests a benign etiology. In addition, f indings are unchanged back to 06/15/2020. IMPRESSION: 1. COPD WITH MODERATE TO ADVANCED EMPHYSEMA AND MULTIPLE AREAS OF ARCHITECTURAL DISTORTION AND IRREGU LAR PLEURAL PARENCHYMAL OPACITIES IN THE UPPER LOBES, PROBABLE SCARRING. FINDINGS ARE RELATIVELY UNCH ANGED FROM 03/27/2021. ADDITIONAL 6 MONTH FOLLOW-UP RECOMMENDED. 2. NO DEFINITE PULMONARY EMBOLUS. 3. ANEURYSMAL ASCENDING AORTA (ROOT 4.1 CM, ASCENDING 4.6 CM) SIMILAR TO THE RECENT PRIOR 03/27/2021. 4. NEW MILDLY ENLARGED 1.2 CM RIGHT INFRAHILAR LYMPH NODE PROBABLY REACTIVE. THIS CAN ALSO BE REASSES SED AT A 6 MONTH FOLLOW-UP.
[2021-09-18] MEDS ORDERED: IPRATROPIUM-ALBUTEROL 3 ML NEB INHALATION PRN (08:57)
[2021-09-18] MEDS ORDERED: APIXABAN 5 MG TAB PO SCH (09:00)
[2021-09-18] MEDS ORDERED: METOPROLOL TARTRATE 50 MG TAB PO SCH (09:00)
[2021-09-18] MEDS: IPRATROPIUM-ALBUTEROL 3 ML NEB INHALATION SCH ×4 (09:13→20:31)
[2021-09-18] MEDS: ALBUTEROL NEBULIZED 2.5 MG/3 ML INHALATION SCH ×4 (09:14→20:31)
[2021-09-18] MEDS: HYDROcodone/APAP 7.5-325MG 1 EACH TAB PO PRN ×2 (09:14→16:06)
[2021-09-18] MEDS: GABAPENTIN 300 MG CAP PO SCH ×2 (09:15→20:24)
[2021-09-18] MEDS: busPIRone HCl 5 MG TAB PO SCH ×2 (09:15→20:24)
--- NOTE | 2021-09-18 11:23 | P.CNPUL ---
History of Present Illness Consult date: 09/18/21 Requesting physician: Delfino Tyler Reason for consult: dyspnea, cough, COPD, hypoxemia, abnormal CXR/CT Chief complaint: Shortness of breath. History of present illness: Pulmonary/critical care consult dated 09/18/2021. 51-year-old female with history of COPD from tobacco use. The patient presents to the emergency department on September 18 complaining of increasing shortness of breath. She did not been feeling well for a couple days. In addition, she complains of cough, wheezing, and phlegm production. The phlegm is brown in color. She denied any fever or chills. There was no chest pain or chest discomfort. We initially went to the ER, she was away from the room getting a CAT scan of the chest. She had a CT angiogram which was negative for pulmonary embolism, but did show significant upper lobe emphysematous changes consistent with tobacco-induced emphysema or what we referred to his proximal acinar emphysema. Her BiPAP settings were 12/6 with 60% FiO2. She was getting saline at 20 mL an hour. She was awake. She did respond appropriately. She did not appear to be in significant respiratory distress. She apparently has a history of COPD, hypertension, pulmonary embolism, anxiety, neuropathy, and chronic neck and back pain. She does smoke marijuana. She drinks alcohol rarely. She does smoke cigarettes every day. White count 15.3, normal hemoglobin, hematocrit, and platelet count. D-dimer was 1.02. Sodium 135, potassium 4.6, chlorides CO2 anion gap BUN and creatinine all normal. Troponin was 0.117. N-terminal proBNP was normal. Chest x-ray was consistent with COPD. CT angiogram showed upper lobe emphysematous changes, without pulmonary embolism. Review of Systems REVIEW OF SYSTEMS: CONSTITUTIONAL: [Negative.] NEUROLOGIC: [ Negative.] HEENT: [ Negative.] CARDIAC: [Negative.] PULMONARY: Shortness breath, cough, wheezing, chest tightness, and phlegm production, which is brown. GI: [Negative.] : [Negative.] RHEUMATOLOGIC: [ Negative.] IMMUNOLOGIC: [ Negative.] ENDOCRINE: [Negative. ] DERMATOLOGIC: [Negative.] Past Medical History Past Medical History: Asthma, COPD, GERD/Reflux, Hypertension, Pneumonia, Pulmonary Embolus (PE), Respiratory Disorder, Vascular Disorder Additional Past Medical History / Comment(s): Brain aneurysm with repair, neuropathy R entire side and L lower extremity, home O2 at 2L/NC ATC mostly, bronchitis, pt cannot recall PEs laterallity, chronic lower back/cervical pain, sinus problems History of Any Multi-Drug Resistant Organisms: None Reported Past Surgical History: Adenoidectomy, Section, Cholecystectomy, Hysterectomy, Tonsillectomy Additional Past Surgical History / Comment(s): D&C, lower back pain clinic procedure/ablation, several mini laparoscopies d/t abnormal vaginal bleeding, brain aneurysm repair, septoplasty/facial cyst excision, dental extractions, bilateral breast implants Past Anesthesia/Blood Transfusion Reactions: No Reported Reaction Additional Past Anesthesia/Blood Transfusion Reaction / Comment(s): Pt received blood in past without reaction. Smoking Status: Current every day smoker - Past Family History Mother Family Medical History: Cancer Additional Family Medical History / Comment(s): Uterine cancer Father Family Medical History: Respiratory Disorder Additional Family Medical History / Comment(s): Father from pulmonary fibrosis. Medications and Allergies Home Medications Medication Instructions Recorded Confirmed Type Butalbital/Aspirin/Caffeine 1 tab PO Q8H PRN 11/30/19 09/18/21 History [Tggbtn-Sukfvmb-Wscrhyrh 50-325-40 mg] Cyanocobalamin [Vitamin B-12 1,000 mcg IM QMONTHLY 11/30/19 09/18/21 History Injection] Desvenlafaxine Succinate [Pristiq 50 mg PO HS 11/30/19 09/18/21 History ER] Desvenlafaxine [Pristiq ER] 100 mg PO HS 11/30/19 09/18/21 History Primidone [Mysoline] 50 mg PO BID 11/30/19 09/18/21 History Ipratropium-Albuterol Nebulize 3 ml INHALATION RT-QID 06/14/20 09/18/21 History [Duoneb 0.5 mg-3 mg/3 ml Soln] traZODone HCL 200 mg PO HS 06/14/20 09/18/21 History ARIPiprazole [Abilify] 10 mg PO HS 03/27/21 09/18/21 History Apixaban [Eliquis] 5 mg PO BID 03/27/21 09/18/21 History Benzonatate [Tessalon Perles] 200 mg PO TID PRN 03/27/21 09/18/21 History Fexofenadine HCl [Vanessa Allergy] 180 mg PO DAILY 03/27/21 09/18/21 History Famotidine [Pepcid] 20 mg PO BID #30 tablet 03/29/21 09/18/21 Rx Albuterol Sulfate [Proair Hfa] 2 puff INHALATION RT-Q4H PRN 09/18/21 09/18/21 History Fluticasone Nasal [place] [Flonase 1 spray EA NOSTRIL DAILY PRN 09/18/21 09/18/21 History Nasal [place]] Fluticasone/Salmeterol [Advair 1 puff INHALATION RT-BID 09/18/21 09/18/21 History 250-50 Diskus] HYDROcodone/APAP 10-325MG [[place] 1 tab PO TID 09/18/21 09/18/21 History 10-325] Methocarbamol [Robaxin-750] 750 mg PO TID PRN 09/18/21 09/18/21 History Oxybutynin Chloride 5 mg PO BID 09/18/21 09/18/21 History busPIRone HCL 15 mg PO BID 09/18/21 09/18/21 History Allergies Allergy/AdvReac Type Severity Reaction Status Date / Time amitriptyline [From Elavil] Allergy Unknown Verified 09/18/21 09:17 pregabalin [From Lyrica] Allergy Unknown Verified 09/18/21 09:17 Physical Exam Osteopathic Statement: *. No significant issues noted on an osteopathic str uctural exam other than those noted in the History and Physical/Consult. Vitals: Vital Signs Temp Pulse Pulse Resp BP BP Pulse Ox 09/18/21 09:23 105 H 09/18/21 09:14 109 H 09/18/21 09:00 98.4 F 105 H 32 H 105/77 100 09/18/21 06:25 117 H 20 102/80 96 09/18/21 05:47 134 H 20 103/79 96 09/18/21 04:47 143 H 20 100/73 98 09/18/21 04:38 97.6 F 144 H 12 120/99 99 Intake and Output 09/17/21 09/18/21 09/18/21 22:59 06:59 14:59 Other: Weight 54.431 kg 54.431 kg No acute distress, oriented 3. BiPAP mask in place. HEENT examination is grossly unremarkable. Neck supple. Full range of motion. No adenopathy thyromegaly or neck vein distention. Cardiovascular examination reveals regular rhythm rate. S1-S2 normal. No S3 or S4. No discernible murmur noted. Heart sounds are distant. Heart rate 94 bpm. Lungs reveal severely diminished bilateral breath sounds. Scattered expiratory wheezes scattered rhonchi are noted. No crackles. There is prolongation on forced maneuver. Abdomen soft bowel sounds are heard. No masses or tenderness. Extremities are intact. No cyanosis clubbing or edema. Skin is without rash or lesion. Neurologic examination is brief but nonfocal. Results - Laboratory Findings CBC and BMP: 09/18/21 04:54 09/18/21 04:54 PT/INR, D-dimer PT 9.8 sec (9.0-12.0) 09/18/21 04:54 INR 0.9 (<1.2) 09/18/21 04:54 D-Dimer 1.02 mg/L FEU (<0.60) H 09/18/21 04:54 Abnormal lab findings: Abnormal Labs 09/18/21 09/18/21 09/18/21 04:54 04:54 04:54 WBC 15.3 H MCV 100.8 H Neutrophils # 13.1 H D-Dimer 1.02 H Sodium 135 L Glucose 252 H Troponin I 09/18/21 04:54 WBC MCV Neutrophils # D-Dimer Sodium Glucose Troponin I 0.117 H* - Diagnostic Findings Chest x-ray: image reviewed CT scan - chest: image reviewed Assessment and Plan Assessment: Acute exacerbation of COPD. History of ongoing tobacco use with nicotine addiction. Negative pulmonary embolism on CT angiogram. History of hypertension. Prior history of pulmonary embolism. History of chronic anxiety. History of neuropathy. Chronic neck and back pain. Plan: Plan dated 09/18/2021. The patient is on albuterol sulfate and ipratropium bromide, as well as Pulmicort 1 mg, and formoterol 20 g. In addition, the patient's receiving Solu-Medrol 60 mg every 6 hours, and is also receiving Rocephin. We did order a pro-calcitonin level on this patient. If it's normal, and I would discontinue antibiotics. Additional recommendations and suggestions are forthcoming. Prog nosis is guarded. The patient encouraged to quit smoking. We will continue to follow make recommendations where appropriate. Time with Patient: Greater than 30
[2021-09-18] MEDS ORDERED: methylPREDNISolone SOD SUCCI 40 MG/ML 1 ML VIAL IV SCH (12:00)
[2021-09-18] MEDS: methylPREDNISolone SOD SUCCI 125 MG/2 ML VIAL IV SCH ×3 (12:23→23:59)
[2021-09-18] MEDS ORDERED: FLUTICASONE 50MCG/SPRAY NASAL 16GM EA NOSTRIL PRN (12:23)
[2021-09-18] MEDS ORDERED: HEPARIN SODIUM 1,000 UN/ML (10ML VL) IV ONE (12:35)
[2021-09-18] MEDS ORDERED: HEPARIN SODIUM 1,000 UN/ML (10ML VL) IV PRN (12:35)
[2021-09-18] MEDS ORDERED: HEPARIN SOD,PORK IN 0.45% NACL 25,000 UNIT in 0.45% NACL 1 250ML.BAG IV SCH (12:45)
[2021-09-18] MEDS: INSULIN ASPART (NovoLOG) 100 UNIT/ML VIAL SQ SCH ×3 (12:48→20:02)
[2021-09-18] MEDS: PANTOPRAZOLE 40 MG/10 ML VIAL IVP SCH (12:48)
--- NOTE | 2021-09-18 13:46 | P.CRDCN ---
History of Present Illness History of present illness: HISTORY OF PRESENTING ILLNESS This is a pleasant 50-year-old female past medical history significant for COPD, pulmonary embolism (on Eliquis) diagnosed 06/2020, hypertension, chronic nicotin e dependence, ascending aortic aneurysm, bicuspid aortic valve diagnosed 03/2021. She does follows with Dr. Negron. We have been asked to see in consultation for elevated troponin. Patient presents to the emergency department shortness of breath. Patient states that starting Saturday she had increased shortness and dyspnea on exertion. She also endorses an episode of left sided chest pain Saturday, it radiated to her left shoulder and left axilla. She states she was short of breath. She denies associated diaphoresis, nausea, lightheadedness or dizziness. She does have increased shortness of breath with activity. But does not relieve with rest. She denies symptoms of orthopnea. She does have symptoms of PND. She denies palpitations, lower extremity edema, fatigue, weakness, lightheadedness, syncope. She denies history of coronary artery disease, SD, stroke, diabetes. Family history includes Father had an SD and stents placed, not sure what age. She denies family history of bicuspid a ortic valve. She smokes about 1 pack per day. No alcohol use. Current home cardiac medications include amlodipine 5 mg daily, Eliquis 5 mg twice a day. DIAGNOSTICS EKG reveals Sinus tachycardia HR 137, no significant ST[facility] abnormalities Echocardiogram 03/28/2021 revealed an EF of 50-55%, mild aortic regurgitation with peak/mean gradient of 44 most mercury/27 mmHg, functionally bicuspid aortic valve, moderate to severe aortic stenosis mild to moderate mitral regurgitation, mild tricuspid regurgitation, ascending aortic root is dilated and measures 3.9 cm Telemetry tracings indicate sinus mechanism, heart rate in the 90s CT chest revealed, COPD with moderate to advanced emphysema, No PE, aneurysmal ascending aorta 4.1 cm, ascending 4.6 cm similar to recent study in 03/2021, Mildly enlarged 1.2 cm right infrahilar lymph node, moderate atherosclerotic calcifications within the LAD Laboratory reviewed, WBC 15.3, Hgb 13.7, Plt 192, d-dimer 1.72, sodium 135, potassium 4.6, BUN 7, serum creatinine 0.8, BNP 183, troponin 0.11-->1.1, covid- 19 negative REVIEW OF SYSTEMS At the time of my exam: CONSTITUTIONAL: Denies fever or chills. CARDIOVASCULAR: +shortness of breath, +PND Denies any further chest pain, Denies orthopnea or palpitations. RESPIRATORY: + cough. GASTROINTESTINAL: Denies abdominal pain, diarrhea, constipation, nausea or vomiting. MUSCULOSKELETAL: Denies myalgias. NEUROLOGIC: Denies numbness, tingling, headacbe or weakness. ENDOCRINE: Denies fatigue, weight change, polydipsia or polyurina. GENITOURINARY: Denies burning, hematuria or urgency with micturation. HEMATOLOGIC: Denies history of anemia or bleeding. PHYSICAL EXAMINATION Blood pressure 90/57 HR 92, afebrile, requiring BIPAP CONSTITUTIONAL: Short of breath, labored breathing HEENT: Head is normocephalic. Pupils are equal, round. Sclerae anicteric. Mucous membranes of the mouth are moist. No JVD. No carotid bruit. CHEST EXAMINATION: Lungs with decreased air exchange, bilateral rhonci and whee zing. Mild chest tendernes with palpation and with deep breathing. HEART EXAMINATION: Regular rate and rhythm. S1, S2 heard. Systolic murmur noted at right sternal border, No gallops or rub. ABDOMEN: Soft, nontender. Positive bowel sounds. EXTREMITIES: 2+ peripheral pulses, no lower extremity edema and no calf tenderness. SKIN: intact NEUROLOGIC EXAMINATION: Patient is awake, alert and oriented x3. ASSESSMENT Acute COPD exacerbation Elevated troponin, likely related to supply and demand mismatch type II event related to hypoxemia, could be an acute ischemic event, but no evidence of EKG Moderate atherosclertoic calcifications within the LAD seen on CT chest Episode of Chest pain on 09/15/21, resolved, denies any further chest pain Shortness of breath Bicuspid aortic valve Moderate to severe aortic stenosis Ascending Aortic aneursym PLAN -Continue IV heparin drip -Start aspirin 81mg daily, and atorvastatin 80mg daily -Metoprolol tartrate 25mg BID -Obtain echo to evaluate aortic valve and LV function Further recommendations based on clinical course Nurse Practitioner note has been reviewed, I agree with a documented findings and plan of care. Patient was seen and examined. Past Medical History Past Medical History: Asthma, COPD, GERD/Reflux, Hypertension, Pneumonia, Pulmonary Embolus (PE), Respiratory Disorder, Vascular Disorder Additional Past Medical History / Comment(s): Brain aneurysm with repair, neuropathy R entire side and L lower extremity, home O2 at 2L/NC ATC mostly, bronchitis, pt cannot recall PEs laterallity, chronic lower back/cervical pain, sinus problems History of Any Multi-Drug Resistant Organisms: None Reported Past Surgical History: Adenoidectomy, Section, Cholecystectomy, Hysterectomy, Tonsillectomy Additional Past Surgical History / Comment(s): D&C, lower back pain clinic procedure/ablation, several mini laparoscopies d/t abnormal vaginal bleeding, brain aneurysm repair, septoplasty/facial cyst excision, dental extractions, bilateral breast implants Past Anesthesia/Blood Transfusion Reactions: No Reported Reaction Additional Past Anesthesia/Blood Transfusion Reaction / Comment(s): Pt received blood in past without reaction. Smoking Status: Current every day smoker - Past Family History Mother Family Medical History: Cancer Additional Family Medical History / Comment(s): Uterine cancer Father Family Medical History: Respiratory Disorder Additional Family Medical History / Comment(s): Father from pulmonary fibrosis. Medications and Allergies Home Medications Medication Instructions Recorded Confirmed Type Butalbital/Aspirin/Caffeine 1 tab PO Q8H PRN 11/30/19 09/18/21 History [Bucpyi-Iyijjvj-Sfuseixd 50-325-40 mg] Cyanocobalamin [Vitamin B-12 1,000 mcg IM QMONTHLY 11/30/19 09/18/21 History Injection] Desvenlafaxine Succinate [Pristiq 50 mg PO HS 11/30/19 09/18/21 History ER] Desvenlafaxine [Pristiq ER] 100 mg PO HS 11/30/19 09/18/21 History Primidone [Mysoline] 50 mg PO BID 11/30/19 09/18/21 History Ipratropium-Albuterol Nebulize 3 ml INHALATION RT-QID 06/14/20 09/18/21 History [Duoneb 0.5 mg-3 mg/3 ml Soln] traZODone HCL 200 mg PO HS 06/14/20 09/18/21 History ARIPiprazole [Abilify] 10 mg PO HS 03/27/21 09/18/21 History Apixaban [Eliquis] 5 mg PO BID 03/27/21 09/18/21 History Benzonatate [Tessalon Perles] 200 mg PO TID PRN 03/27/21 09/18/21 History Fexofenadine HCl [Vanessa Allergy] 180 mg PO DAILY 03/27/21 09/18/21 History Famotidine [Pepcid] 20 mg PO BID #30 tablet 03/29/21 09/18/21 Rx Albuterol Sulfate [Proair Hfa] 2 puff INHALATION RT-Q4H PRN 09/18/21 09/18/21 History Fluticasone Nasal [place] [Flonase 1 spray EA NOSTRIL DAILY PRN 09/18/21 09/18/21 History Nasal [place]] Fluticasone/Salmeterol [Advair 1 puff INHALATION RT-BID 09/18/21 09/18/21 History 250-50 Diskus] HYDROcodone/APAP 10-325MG [[place] 1 tab PO TID 09/18/21 09/18/21 History 10-325] Methocarbamol [Robaxin-750] 750 mg PO TID PRN 09/18/21 09/18/21 History Oxybutynin Chloride 5 mg PO BID 09/18/21 09/18/21 History busPIRone HCL 15 mg PO BID 09/18/21 09/18/21 History Allergies Allergy/AdvReac Type Severity Reaction Status Date / Time amitriptyline [From Elavil] Allergy Unknown Verified 09/18/21 09:17 pregabalin [From Lyrica] Allergy Unknown Verified 09/18/21 09:17 Physical Exam Vitals: Vital Signs Temp Pulse Pulse Resp BP BP Pulse Ox 09/18/21 11:30 97.2 F L 92 20 90/57 100 09/18/21 11:15 94 09/18/21 11:06 94 09/18/21 09:23 105 H 09/18/21 09:14 109 H 09/18/21 09:00 98.4 F 105 H 32 H 105/77 100 09/18/21 06:25 117 H 20 102/80 96 09/18/21 05:47 134 H 20 103/79 96 09/18/21 04:47 143 H 20 100/73 98 09/18/21 04:38 97.6 F 144 H 12 120/99 99 Intake and Output 09/17/21 09/18/21 09/18/21 22:59 06:59 14:59 Intake Total 50 Balance 50 Intake: Intake, IV Titration 50 Amount cefTRIAXone 1 gm In 50 Sodium Chloride 0.9% 50 ml @ 100 mls/hr IVPB Q24HR [facility] Rx#:[id number] Other: # Voids 1 Weight 54.431 kg 54.431 kg Results 09/18/21 04:54 09/18/21 04:54 Cardiac Enzymes 09/18/21 09/18/21 09/18/21 Range/Units 04:54 04:54 09:00 AST 23 (14-36) U/L Troponin I 0.117 H* 1.160 H* (0.000-0.034) ng/mL Coagulation 09/18/21 Range/Units 04:54 PT 9.8 (9.0-12.0) sec APTT 22.3 (22.0-30.0) sec CBC 09/18/21 Range/Units 04:54 WBC 15.3 H (3.8-10.6) k/uL RBC 4.13 (3.80-5.40) m/uL Hgb 13.7 (11.4-16.0) gm/dL Hct 41.6 (34.0-46.0) % Plt Count 192 (150-450) k/uL Comprehensive Metabolic Panel 09/18/21 Range/Units 04:54 Sodium 135 L (137-145) mmol/L Potassium 4.6 (3.5-5.1) mmol/L Chloride 100 (98-107) mmol/L Carbon Dioxide 26 (22-30) mmol/L BUN 7 (7-17) mg/dL Creatinine 0.83 (0.52-1.04) mg/dL Glucose 252 H (74-99) mg/dL Calcium 8.7 (8.4-10.2) mg/dL AST 23 (14-36) U/L ALT 13 (4-34) U/L Alkaline Phosphatase 93 (38-126) U/L Total Protein 6.4 (6.3-8.2) g/dL Albumin 3.7 (3.5-5.0) g/dL Current Medications Generic Name Dose Route Start Last Admin Trade Name Freq PRN Reason Stop Dose Admin Hydrocodone Bitart/Acetaminophen 1 each 09/18/21 08:57 09/18/21 09:14 Hydrocodone/Apap 7.5-325mg 1 Each Tab PO 1 each Q6H PRN Administration Pain Albuterol Sulfate 2.5 mg 09/18/21 08:00 09/18/21 11:05 Albuterol Nebulized 2.5 Mg/3 Ml INHALATION Not Given RT-QID [facility] Albuterol/Ipratropium 3 ml 09/18/21 08:00 09/18/21 11:05 Ipratropium-Albuterol 3 Ml Neb INHALATION 3 ml RT-QID [facility] Administration Albuterol/Ipratropium 3 ml 09/18/21 08:57 Ipratropium-Albuterol 3 Ml Neb INHALATION RT-Q4H PRN Shortness Of Breath Aripiprazole 10 mg 09/18/21 21:00 Aripiprazole 10 Mg Tab PO HS [facility] Budesonide 1 mg 09/18/21 20:00 Budesonide 1 Mg/2 Ml Nebu INHALATION RT-BID [facility] Buspirone HCl 15 mg 09/18/21 09:00 09/18/21 09:15 Buspirone Hcl 5 Mg Tab PO 15 mg BID [facility] Administration Fluticasone Propionate 1 spray 09/18/21 12:23 Fluticasone 50mcg/[place] Nasal 16gm EA NOSTRIL DAILY PRN Congestion Formoterol Fumarate 20 mcg 09/18/21 20:00 Formoterol Fumarate 20 Mcg/2 Ml Nebu INHALATION RT-BID [facility] Gabapentin 300 mg 09/18/21 09:00 09/18/21 09:15 Gabapentin 300 Mg Cap PO 300 mg BID [facility] Administration Heparin Sodium (Porcine) 0 unit 09/18/21 12:35 Heparin Sodium 1,000 Un/Ml (10ml Vl) IV PER PROTOCOL PRN Low PTT Protocol Ceftriaxone Sodium 1 gm/ 50 mls @ 100 mls/hr 09/18/21 09:00 09/18/21 09:15 Sodium Chloride IVPB 100 mls/hr Q24HR [facility] Administration Heparin Sodium/Sodium Chloride 250 mls @ 6.532 mls/hr 09/18/21 12:45 09/18/21 12:55 25,000 unit/ Sodium Chloride IV 12 units/kg/hr .Q24H [facility] 6.532 mls/hr Administration Protocol 12 UNITS/KG/HR Insulin Aspart 0 unit 09/18/21 12:30 09/18/21 12:48 Insulin Aspart (Novolog) 100 Unit/Ml Vial SQ Not Given ACHS [facility] Protocol Methylprednisolone Sodium Succinate 60 mg 09/18/21 12:00 09/18/21 12:23 Methylprednisolone Sod Succi 125 Mg/2 Ml Vial IV 60 mg Q6HR [facility] Administration Metoprolol Tartrate 25 mg 09/18/21 16:00 Metoprolol Tartrate 25 Mg Tab PO DAILY@1600 [facility] Metoprolol Tartrate 50 mg 09/18/21 09:00 09/18/21 09:17 Metoprolol Tartrate 50 Mg Tab PO Not Given DAILY [facility] Oxybutynin Chloride 5 mg 09/18/21 21:00 Oxybutynin Chloride 5 Mg Tab PO BID [facility] Pantoprazole Sodium 40 mg 09/18/21 12:30 09/18/21 12:48 Pantoprazole 40 Mg/10 Ml Vial IVP 40 mg DAILY [facility] Administration Primidone 50 mg 09/18/21 21:00 Primidone 50 Mg Tab PO BID [facility] Trazodone HCl 200 mg 09/18/21 21:00 Trazodone Hcl 100 Mg Tab PO [facility] Intake and Output 09/17/21 09/18/21 09/18/21 22:59 06:59 14:59 Intake Total 50 Balance 50 Intake: Intake, IV Titration 50 Amount cefTRIAXone 1 gm In 50 Sodium Chloride 0.9% 50 ml @ 100 mls/hr IVPB Q24HR [facility] Rx#:[id number] Other: # Voids 1 Weight 54.431 kg 54.431 kg Patient Weight 09/19/21 06:59 Weight 54.431 kg 09/18/21 04:54 09/18/21 04:54
[2021-09-18] MEDS: ASPIRIN 81 MG PO SCH (16:00)
[2021-09-18] MEDS: ATORVASTATIN 80 MG TAB PO SCH (16:00)
[2021-09-18] MEDS: METOPROLOL TARTRATE 25 MG TAB PO SCH ×2 (16:00→20:25)
[2021-09-18] MEDS ORDERED: METOPROLOL TARTRATE 25 MG TAB PO SCH (16:00)
[2021-09-18 17:30] LABS: Glucose,Whole Blood 154 mg/dL (75-99)
[2021-09-18 20:02] LABS: Glucose,Whole Blood 117 mg/dL (75-99)
[2021-09-18] MEDS: OXYBUTYNIN CHLORIDE 5 MG TAB PO SCH (20:25)
[2021-09-18] MEDS: traZODone HCL 100 MG TAB PO SCH (20:25)
[2021-09-18] MEDS: PRIMIDONE 50 MG TAB PO SCH (20:25)
[2021-09-18] MEDS: FORMOTEROL FUMARATE 20 MCG/2 ML NEBU INHALATION SCH (20:32)
[2021-09-18] MEDS: BUDESONIDE 1 MG/2 ML NEBU INHALATION SCH (20:32)
[2021-09-18] MEDS: ARIPiprazole 10 MG TAB PO SCH (21:32)
[2021-09-19 05:24] LABS: Basophils % (A) 0 %; Eosinophils % (A) 0 %; HCT 41.4 % (34.0-46.0); HGB 13.3 gm/dL (11.4-16.0); Lymphocytes # (A) 0.8 k/uL (1.0-4.8); Lymphocytes % (A) 15 %; MCH 33.1 pg (25.0-35.0); MCHC 32.1 g/dL (31.0-37.0); MCV 103.1 fL (80.0-100.0); Macrocytosis Slight; Mean Platelet Volume 8.4; Monocytes # (A) 0.2 k/uL (0-1.0); Monocytes % (A) 3 %; Neutrophils % (A) 80 %; Platelet Count 190 k/uL (150-450); RBC 4.01 m/uL (3.80-5.40); RDW 13.1 % (11.5-15.5)
[2021-09-19 05:33] LABS: INR 0.9 (<1.2); Partial Thromboplastin Time 33.4 sec (22.0-30.0); Prothrombin Time 9.6 sec (9.0-12.0)
[2021-09-19] MEDS ORDERED: HEPARIN SODIUM 1,000 UN/ML (10ML VL) IV PRN (06:25)
[2021-09-19 06:28] LABS: Glucose,Whole Blood 173 mg/dL (75-99)
[2021-09-19] MEDS: INSULIN ASPART (NovoLOG) 100 UNIT/ML VIAL SQ SCH ×4 (06:58→22:23)
[2021-09-19] MEDS: methylPREDNISolone SOD SUCCI 125 MG/2 ML VIAL IV SCH ×4 (06:58→23:46)
[2021-09-19 07:07] LABS: Potassium 5.7 mmol/L (3.5-5.1)
[2021-09-19] MEDS: BUDESONIDE 1 MG/2 ML NEBU INHALATION SCH ×2 (07:55→21:10)
[2021-09-19] MEDS: FORMOTEROL FUMARATE 20 MCG/2 ML NEBU INHALATION SCH ×2 (07:55→21:10)
[2021-09-19] MEDS: ALBUTEROL NEBULIZED 2.5 MG/3 ML INHALATION SCH ×3 (07:55→17:01)
[2021-09-19] MEDS: IPRATROPIUM-ALBUTEROL 3 ML NEB INHALATION SCH ×4 (07:55→21:10)
--- NOTE | 2021-09-19 08:54 | P.HPIM ---
History of Present Illness H&P Date: 09/18/21 Chief Complaint: shortness of breath Tamiko Lui is a 51 yo F with PMH of COPD, PE on eliquis, chronic back pain, tobacco use who presented to the ED with worsening shortness of breath over the past few days. She complains that over the past 4-5 days she has been feeling sh ort of breath and she also experienced some chest pain with her coughing. She states that she has been bringing up clear mucus and noticing wheezing that was not improved with her home inhalres. She denies fever, chills, nausea or diaphoresis. On presentation she was tachycardic and hypoxic requiring BIPAP, WBC 15k, Cr 0.8, Trop 0.15, procalcitonin negative, COVID negative. CTA chest performed and no PE or acute infiltrate. Review of Systems All systems: negative Constitutional: Reports malaise, Denies chills, Denies fever Eyes: denies blurred vision, denies pain Ears, nose, mouth and throat: Denies headache, Denies sore throat Cardiovascular: Denies chest pain, Denies shortness of breath Respiratory: Reports congestion, Reports cough, Reports dyspnea Gastrointestinal: Denies abdominal pain, Denies diarrhea, Denies nausea, Denies vomiting Genitourinary: Denies dysuria, Denies hematuria Musculoskeletal: Denies myalgias Integumentary: Denies pruritus, Denies rash Neurological: Denies numbness, Denies weakness Psychiatric: Denies anxiety, Denies depression Endocrine: Denies fatigue, Denies weight change Past Medical History Past Medical History: Asthma, COPD, GERD/Reflux, Hypertension, Pneumonia, Pulmon yuan Embolus (PE), Respiratory Disorder, Vascular Disorder Additional Past Medical History / Comment(s): Brain aneurysm with repair, neuropathy R entire side and L lower extremity, home O2 at 2L/[place] ATC mostly, bronchitis, pt cannot recall PEs laterallity, chronic lower back/cervical pain, sinus problems History of Any Multi-Drug Resistant Organisms: None Reported Past Surgical History: Adenoidectomy, Section, Cholecystectomy, Hysterectomy, Tonsillectomy Additional Past Surgical History / Comment(s): D&C, lower back pain clinic procedure/ablation, several mini laparoscopies d/t abnormal vaginal bleeding, brain aneurysm repair, septoplasty/facial cyst excision, dental extractions, bilateral breast implants Past Anesthesia/Blood Transfusion Reactions: No Reported Reaction Additional Past Anesthesia/Blood Transfusion Reaction / Comment(s): Pt received blood in past without reaction. Smoking Status: Current every day smoker - Past Family History Mother Family Medical History: Cancer Additional Family Medical History / Comment(s): Uterine cancer Father Family Medical History: Respiratory Disorder Additional Family Medical History / Comment(s): Father from pulmonary fibrosis. Medications and Allergies Home Medications Medication Instructions Recorded Confirmed Type Butalbital/Aspirin/Caffeine 1 tab PO Q8H PRN 11/30/19 09/18/21 History [Sismln-Nvbsoug-Jrmpzlon 50-325-40 mg] Cyanocobalamin [Vitamin B-12 1,000 mcg IM QMONTHLY 11/30/19 09/18/21 History Injection] Desvenlafaxine Succinate [Pristiq 50 mg PO HS 11/30/19 09/18/21 History ER] Desvenlafaxine [Pristiq ER] 100 mg PO HS 11/30/19 09/18/21 History Primidone [Mysoline] 50 mg PO BID 11/30/19 09/18/21 History Ipratropium-Albuterol Nebulize 3 ml INHALATION RT-QID 06/14/20 09/18/21 History [Duoneb 0.5 mg-3 mg/3 ml Soln] traZODone HCL 200 mg PO HS 06/14/20 09/18/21 History ARIPiprazole [Abilify] 10 mg PO HS 03/27/21 09/18/21 History Apixaban [Eliquis] 5 mg PO BID 03/27/21 09/18/21 History Benzonatate [Tessalon Perles] 200 mg PO TID PRN 03/27/21 09/18/21 History Fexofenadine HCl [Vanessa Allergy] 180 mg PO DAILY 03/27/21 09/18/21 History Famotidine [Pepcid] 20 mg PO BID #30 tablet 03/29/21 09/18/21 Rx Albuterol Sulfate [Proair Hfa] 2 puff INHALATION RT-Q4H PRN 09/18/21 09/18/21 History Fluticasone Nasal [place] [Flonase 1 spray EA NOSTRIL DAILY PRN 09/18/21 09/18/21 History Nasal [place]] Fluticasone/Salmeterol [Advair 1 puff INHALATION RT-BID 09/18/21 09/18/21 History 250-50 Diskus] HYDROcodone/APAP 10-325MG [[place] 1 tab PO TID 09/18/21 09/18/21 History 10-325] Methocarbamol [Robaxin-750] 750 mg PO TID PRN 09/18/21 09/18/21 History Oxybutynin Chloride 5 mg PO BID 09/18/21 09/18/21 History busPIRone HCL 15 mg PO BID 09/18/21 09/18/21 History Allergies Allergy/AdvReac Type Severity Reaction Status Date / Time amitriptyline [From Elavil] Allergy Unknown Verified 09/18/21 09:17 pregabalin [From Lyrica] Allergy Unknown Verified 09/18/21 09:17 Physical Exam Vitals: Vital Signs Temp Pulse Pulse Resp BP BP Pulse Ox 09/18/21 21:00 90 09/18/21 20:50 90 09/18/21 20:36 90 09/18/21 17:41 98.4 F 82 27 H 126/81 98 09/18/21 15:57 97.2 F L 96 28 H 100/78 100 09/18/21 11:30 97.2 F L 92 20 90/57 100 09/18/21 11:15 94 09/18/21 11:06 94 09/18/21 09:23 105 H 09/18/21 09:14 109 H 09/18/21 09:00 98.4 F 105 H 32 H 105/77 100 09/18/21 06:25 117 H 20 102/80 96 09/18/21 05:47 134 H 20 103/79 96 09/18/21 04:47 143 H 20 100/73 98 09/18/21 04:38 97.6 F 144 H 12 120/99 99 Intake and Output 09/18/21 09/18/21 09/18/21 06:59 14:59 22:59 Intake Total 288.89 42.676 Balance 288.89 42.676 Intake: Intake, IV Titration 66.89 42.676 Amount Heparin Sod,Pork in 0.45% 16.89 42.676 NaCl 25,000 unit In 0.45 % NaCl 1 250ml.bag @ 12 UNITS/KG/HR 6.532 mls/hr IV .Q24H [facility] Rx#: [id number] cefTRIAXone 1 gm In 50 Sodium Chloride 0.9% 50 ml @ 100 mls/hr IVPB Q24HR [facility] Rx#:[id number] Oral 222 Other: # Voids 1 Weight 54.431 kg 54.431 kg General: well nourished, well developed, NAD. Vitals reviewed Eyes: PERRL, EOMI, conjunctiva normal HENT: normocephalic, mucus membranes moist Neck: supple, no JVD Lungs: normal effort, wheezing and rhonchi throughout. diminished air entry CV: Regular rate and rhythm, no murmur. Peripheral pulses 2+ Abdomen: soft, nondistended, no organomegaly Lymph: no cervical or axillary LAD Skin: warm and dry. Neuro: A&Ox3, normal mood and affect Results CBC & Chem 7: 09/19/21 04:56 09/19/21 04:56 Labs: Abnormal Lab Results - Last 24 Hours (Table) 09/18/21 09/18/21 09/18/21 Range/Units 04:54 04:54 04:54 WBC 15.3 H (3.8-10.6) k/uL MCV 100.8 H (80.0-100.0) fL Neutrophils # 13.1 H (1.3-7.7) k/uL APTT (22.0-30.0) sec D-Dimer 1.02 H (<0.60) mg/L FEU Sodium 135 L (137-145) mmol/L Glucose 252 H (74-99) mg/dL POC Glucose (mg/dL) (75-99) mg/dL Troponin I (0.000-0.034) ng/mL 09/18/21 09/18/21 09/18/21 Range/Units 04:54 09:00 17:29 WBC (3.8-10.6) k/uL MCV (80.0-100.0) fL Neutrophils # (1.3-7.7) k/uL APTT (22.0-30.0) sec D-Dimer (<0.60) mg/L FEU Sodium (137-145) mmol/L Glucose (74-99) mg/dL POC Glucose (mg/dL) 154 H (75-99) mg/dL Troponin I 0.117 H* 1.160 H* (0.000-0.034) ng/mL 09/18/21 09/18/21 Range/Units 18:23 20:00 WBC (3.8-10.6) k/uL MCV (80.0-100.0) fL Neutrophils # (1.3-7.7) k/uL APTT 45.5 H (22.0-30.0) sec D-Dimer (<0.60) mg/L FEU Sodium (137-145) mmol/L Glucose (74-99) mg/dL POC Glucose (mg/dL) 117 H (75-99) mg/dL Troponin I (0.000-0.034) ng/mL Thrombosis Risk Factor Assmnt - Choose All That Apply Any of the Below Risk Factors Present?: Yes Each Factor Represents 1 point: Abnormal pulmonary function (COPD), Age 41-60 years Other Risk Factors: Yes Each Risk Factor Represents 3 Points: History of DVT/PE Other congenital or acquired thrombophilia - If yes, enter type in comment: No Thrombosis Risk Factor Assessment Total Risk Factor Score: 5 Thrombosis Risk Factor Assessment Level: High Risk Assessment and Plan Plan: 1. Acute hypoxic respiratory failure and COPD exacerbation. Supplemental o2 as required to maintain above 88%. Start IV steroids; consult pulmonology. Duonebs and pulmicort 2. Elevated troponin, due to demand ischemia. Cardiology consult. Start IV heparin, hold eliquis 3. Chronic back pain. Continue home norco 4. Mood disorder. Continue home trazodone, abilify, buspar
[2021-09-19] MEDS: ASPIRIN 81 MG PO SCH (09:59)
[2021-09-19] MEDS: GABAPENTIN 300 MG CAP PO SCH ×2 (10:00→22:28)
[2021-09-19] MEDS: busPIRone HCl 5 MG TAB PO SCH ×2 (10:00→22:29)
[2021-09-19] MEDS: METOPROLOL TARTRATE 25 MG TAB PO SCH ×2 (10:00→22:29)
[2021-09-19] MEDS: ATORVASTATIN 80 MG TAB PO SCH (10:00)
[2021-09-19] MEDS: HYDROcodone/APAP 7.5-325MG 1 EACH TAB PO PRN ×2 (10:01→16:34)
[2021-09-19] MEDS: OXYBUTYNIN CHLORIDE 5 MG TAB PO SCH ×2 (10:01→22:29)
[2021-09-19] MEDS: PANTOPRAZOLE 40 MG/10 ML VIAL IVP SCH (10:01)
[2021-09-19 11:41] LABS: Glucose,Whole Blood 112 mg/dL (75-99)
--- NOTE | 2021-09-19 11:41 | P.PN ---
Subjective This is a pleasant 50-year-old female past medical history significant for COPD, pulmonary embolism (on Eliquis) diagnosed 06/2020, hypertension, chronic nicotine dependence, ascending aortic aneurysm, bicuspid aortic valve diagnosed 03/2021. She does follows with Dr. Negron. We have been asked to see in consultation for elevated troponin. Patient presents to the emergency department shortness of breath and currently being treated for COPD exac erbation. troponin 0.11-->1.1-->0.3. She was started on BIPAP and duonebs and states her breathing has improved. Labs, sodium 134, potassium 5.7, BUN 22, serum creatinine 1.04, troponin 0.39 She's currently maintained on IV heparin, aspirin 81 mg daily, atorvastatin 80 mg daily, metoprolol tartrate 25 mg twice a day PHYSICAL EXAMINATION Blood pressure 126/77, heart rate 91, afebrile, saturation status post percent on 5 L nasal cannula CONSTITUTIONAL: Short of breath HEENT: Neck Supple. No JVD CHEST EXAMINATION: Lungs with decreased air exchange, bilateral wheezing. HEART EXAMINATION: Regular rate and rhythm. S1, S2 heard. Systolic murmur noted at right sternal border ABDOMEN: Soft, nontender. Positive bowel sounds. EXTREMITIES: 2+ peripheral pulses, no lower extremity edema and no calf tenderness. NEUROLOGIC EXAMINATION: Patient is awake, alert and oriented x3. ASSESSMENT Acute COPD exacerbation Elevated troponin, likely related to supply and demand mismatch type II event related to hypoxemia Moderate atherosclertoic calcifications within the LAD seen on CT chest Episode of Chest pain on 09/15/21, resolved, denies any further chest pain Shortness of breath Bicuspid aortic valve Moderate to severe aortic stenosis Ascending Aortic aneursym PLAN -Stop IV heparin, restart patient on Eliquis -Continue aspirin 81mg daily, and atorvastatin 80mg daily and metoprolol tartrat e 25mg BID -Echo obtained, will review Further recommendations based on clinical course Nurse Practitioner note has been reviewed, I agree with a documented findings and plan of care. Patient was seen and examined. Objective - Vital Signs Vital signs: Vital Signs Temp 98.2 F 09/19/21 08:05 Pulse 82 09/19/21 11:18 Resp 22 09/19/21 08:05 BP 126/77 09/19/21 08:05 Pulse Ox 96 09/19/21 08:05 Intake & Output 09/18/21 09/19/21 09/19/21 18:59 06:59 18:59 Intake Total 288.89 42.676 75.445 Balance 288.89 42.676 75.445 Weight 54.431 kg 53.5 kg Intake: Intake, IV Titration 66.89 42.676 75.445 Amount Heparin Sod,Pork in 0.45% 16.89 42.676 75.445 NaCl 25,000 unit In 0.45 % NaCl 1 250ml.bag @ 12 UNITS/KG/HR 6.532 mls/hr IV .Q24H [facility] Rx#: [id number] cefTRIAXone 1 gm In 50 Sodium Chloride 0.9% 50 ml @ 100 mls/hr IVPB Q24HR [facility] Rx#:[id number] Oral 222 Other: Voiding Method Bedside Commode Bedside Commode # Voids 1 1 - Labs CBC & Chem 7: 09/19/21 04:56 09/19/21 04:56 Labs: Abnormal Lab Results - Last 24 Hours (Table) 09/18/21 09/18/21 09/18/21 Range/Units 09:00 17:29 18:23 MCV (80.0-100.0) fL Lymphocytes # (1.0-4.8) k/uL APTT 45.5 H (22.0-30.0) sec Sodium (137-145) mmol/L Potassium (3.5-5.1) mmol/L Carbon Dioxide (22-30) mmol/L BUN (7-17) mg/dL Glucose (74-99) mg/dL POC Glucose (mg/dL) 154 H (75-99) mg/dL Troponin I 1.160 H* (0.000-0.034) ng/mL 09/18/21 09/19/21 09/19/21 Range/Units 20:00 04:56 04:56 MCV 103.1 H (80.0-100.0) fL Lymphocytes # 0.8 L (1.0-4.8) k/uL APTT 33.4 H (22.0-30.0) sec Sodium (137-145) mmol/L Potassium (3.5-5.1) mmol/L Carbon Dioxide (22-30) mmol/L BUN (7-17) mg/dL Glucose (74-99) mg/dL POC Glucose (mg/dL) 117 H (75-99) mg/dL Troponin I (0.000-0.034) ng/mL 09/19/21 09/19/21 09/19/21 Range/Units 04:56 04:56 06:26 MCV (80.0-100.0) fL Lymphocytes # (1.0-4.8) k/uL APTT (22.0-30.0) sec Sodium 134 L (137-145) mmol/L Potassium 5.7 H (3.5-5.1) mmol/L Carbon Dioxide 32 H (22-30) mmol/L BUN 22 H (7-17) mg/dL Glucose 162 H (74-99) mg/dL POC Glucose (mg/dL) 173 H (75-99) mg/dL Troponin I 0.399 H* (0.000-0.034) ng/mL
--- NOTE | 2021-09-19 12:14 | P.PN ---
Subjective Progress Note Date: 09/19/21 Principal diagnosis: Shortness of breath. Pulmonary/critical care consult dated 09/18/2021. 51-year-old female with history of COPD from tobacco use. The patient presents to the emergency department on September 18 complaining of increasing shortness of breath. She did not been feeling well for a couple days. In addition, she complains of cough, wheezing, and phlegm production. The phlegm is brown in color. She denied any fever or chills. There was no chest pain or chest discomfort. We initially went to the ER, she was away from the room getting a CAT scan of the chest. She had a CT angiogram which was negative for pulmonary embolism, but did show significant upper lobe emphysematous changes consistent with tobacco-induced emphysema or what we referred to his proximal acinar emphysema. Her BiPAP settings were 12/6 with 60% FiO2. She was getting saline at 20 mL an hour. She was awake. She did respond appropriately. She did not appear to be in significant respiratory distress. She apparently has a history of COPD, hypertension, pulmonary embolism, anxiety, neuropathy, and chronic neck and back pain. She does smoke marijuana. She drinks alcohol rarely. She does smoke cigarettes every day. White count 15.3, normal hemoglobin, hematocrit, and platelet count. D-dimer was 1.02. Sodium 135, potassium 4.6, chlorides CO2 anion gap BUN and creatinine all normal. Troponin was 0.117. N-terminal proBNP was normal. Chest x-ray was consistent with COPD. CT angiogram showed upper lobe emphysematous changes, without pulmonary embolism. Progress note dated 09/19/2021. This is a 51-year-old female seen in room 360. Yesterday we saw her in the emergency department. She was admitted with a diagnosis of COPD exacerbation. Unfortunately, she continues to smoke. This patient sees my nurse practitioner, Dr. Kaitlyn Arizmendi in the office. Currently, she is on BiPAP at 12/6 and an FiO2 of 60%. She's getting saline at 20 mL an hour. She does use home oxygen at 3 L/m, 24. White count 5, hemoglobin 13.3, hematocrit 41.4, platelet count 19 0,000. Sodium 134, potassium 5.7, chlorides 103, CO2 32, BUN 22, and creatinine 1.04. Troponins is 0.399. CT angiogram was negative for PE, but did show upper lobe emphysematous changes. Objective - Vital Signs Vital signs: Vital Signs Temp 98.2 F 09/19/21 08:05 Pulse 82 09/19/21 11:18 Resp 22 09/19/21 08:05 BP 126/77 09/19/21 08:05 Pulse Ox 96 09/19/21 08:05 Intake & Output 09/18/21 09/19/21 09/19/21 18:59 06:59 18:59 Intake Total 288.89 42.676 75.445 Balance 288.89 42.676 75.445 Weight 54.431 kg 53.5 kg Intake: Intake, IV Titration 66.89 42.676 75.445 Amount Heparin Sod,Pork in 0.45% 16.89 42.676 75.445 NaCl 25,000 unit In 0.45 % NaCl 1 250ml.bag @ 12 UNITS/KG/HR 6.532 mls/hr IV .Q24H [facility] Rx#: [id number] cefTRIAXone 1 gm In 50 Sodium Chloride 0.9% 50 ml @ 100 mls/hr IVPB Q24HR [facility] Rx#:[id number] Oral 222 Other: Voiding Method Bedside Commode Bedside Commode # Voids 1 1 - Exam No acute distress, oriented 3. BiPAP mask in place. HEENT examination is grossly unremarkable. Neck supple. Full range of motion. No adenopathy thyromegaly or neck vein distention. Cardiovascular examination reveals regular rhythm rate. S1-S2 normal. No S3 or S4. No discernible murmur noted. Heart sounds are distant. Heart rate 82 bpm. Lungs reveal severely diminished bilateral breath sounds. Scattered expiratory wheezes scattered rhonchi are noted. No crackles. There is prolongation on forced maneuver. Abdomen soft bowel sounds are heard. No masses or tenderness. Extremities are intact. No cyanosis clubbing or edema. Skin is without rash or lesion. Neurologic examination is brief but nonfocal. - Labs CBC & Chem 7: 09/19/21 04:56 09/19/21 04:56 Labs: Abnormal Lab Results - Last 24 Hours (Table) 09/18/21 09/18/21 09/18/21 Range/Units 17:29 18:23 20:00 MCV (80.0-100.0) fL Lymphocytes # (1.0-4.8) k/uL APTT 45.5 H (22.0-30.0) sec Sodium (137-145) mmol/L Potassium (3.5-5.1) mmol/L Carbon Dioxide (22-30) mmol/L BUN (7-17) mg/dL Glucose (74-99) mg/dL POC Glucose (mg/dL) 154 H 117 H (75-99) mg/dL Troponin I (0.000-0.034) ng/mL 09/19/21 09/19/21 09/19/21 Range/Units 04:56 04:56 04:56 MCV 103.1 H (80.0-100.0) fL Lymphocytes # 0.8 L (1.0-4.8) k/uL APTT 33.4 H (22.0-30.0) sec Sodium 134 L (137-145) mmol/L Potassium 5.7 H (3.5-5.1) mmol/L Carbon Dioxide 32 H (22-30) mmol/L BUN 22 H (7-17) mg/dL Glucose 162 H (74-99) mg/dL POC Glucose (mg/dL) (75-99) mg/dL Troponin I (0.000-0.034) ng/mL 09/19/21 09/19/21 09/19/21 Range/Units 04:56 06:26 11:39 MCV (80.0-100.0) fL Lymphocytes # (1.0-4.8) k/uL APTT (22.0-30.0) sec Sodium (137-145) mmol/L Potassium (3.5-5.1) mmol/L Carbon Dioxide (22-30) mmol/L BUN (7-17) mg/dL Glucose (74-99) mg/dL POC Glucose (mg/dL) 173 H 112 H (75-99) mg/dL Troponin I 0.399 H* (0.000-0.034) ng/mL Assessment and Plan Assessment: Acute exacerbation of COPD. History of ongoing tobacco use with nicotine addiction. Elevated troponins, possibly related to supply/demand mismatch. Negative pulmonary embolism on CT angiogram. History of hypertension. Prior history of pulmonary embolism. History of chronic anxiety. History of neuropathy. Chronic neck and back pain. Plan: Plan dated 09/18/2021. The patient is on albuterol sulfate and ipratropium bromide, as well as Pulmicort 1 mg, and formoterol 20 g. In addition, the patient's receiving Solu-Medrol 60 mg every 6 hours, and is also receiving Rocephin. We did order a pro-calcitonin level on this patient. If it's normal, and I would discontinue antibiotics. Additional recommendations and suggestions are forthcoming. Prognosis is guarded. The patient encouraged to quit smoking. We will continue to follow make recommendations where appropriate. Plan dated 09/19/2021. The patient's placed on appropriate medications including albuterol, ipratropium bromide, Pulmicort, and formoterol. In addition, the patient's on Solu-Medrol. She remains on BiPAP, with settings of 12/6, and 60% FiO2. She clinically looks much better today than she did yesterday. She is much more awake and alert. Pro-calcitonin level was 0.05 some antibiotics can be discontinued. The patient may have sustained a non-ST segment elevation myocardial infarction. Troponins are elevated. White count 5, hemoglobin 13.3, hematocrit 41.4, and platelet count 190,000. Sodium 134, potassium 5.7, chlorides 103, CO2 32, BUN and creatinine were 22 and 1.04. We will continue to follow make recommendations where appropriate. Cardiology has seen the patient. Time with Patient: Less than 30
[2021-09-19] MEDS: PRIMIDONE 50 MG TAB PO SCH ×2 (12:33→22:29)
[2021-09-19] MEDS: APIXABAN 5 MG TAB PO SCH ×2 (12:33→22:29)
[2021-09-19 16:36] LABS: Glucose,Whole Blood 169 mg/dL (75-99)
--- NOTE | 2021-09-19 16:42 | P.PN ---
Subjective Progress Note Date: 09/19/21 Tamiko Lui is a 51 yo F with PMH of COPD, PE on eliquis, chronic back pain, tobacco use who presented to the ED with worsening shortness of breath over the past few days. She complains that over the past 4-5 days she has been feeling short of breath and she also experienced some chest pain with her coughing. She states that she has been bringing up clear mucus and noticing wheezing that was not improved with her home inhalres. She denies fever, chills, nausea or diaphoresis. On presentation she was tachycardic and hypoxic requiring BIPAP, WBC 15k, Cr 0.8, Trop 0.15, procalcitonin negative, COVID negative. CTA chest performed and no PE or acute infiltrate. 09/19/2021 maintained on BiPAP throughout the night and this morning with O2 sats in the 90s. Minimal cough, denies increased shortness of breath. Afebrile, normal WBC. Antibiotics discontinued, pro-calcitonin normal. Anticoagulated on heparin drip. Troponin 0.117, 0.160, 0.399. Denies chest pain, palpitations. Objective - Vital Signs Vital signs: Vital Signs Temp 97.4 F L 09/19/21 16:00 Pulse 86 09/19/21 16:00 Resp 19 09/19/21 16:00 BP 105/69 09/19/21 16:00 Pulse Ox 97 09/19/21 16:00 Intake & Output 09/18/21 09/19/21 09/19/21 18:59 06:59 18:59 Intake Total 288.89 42.676 875.445 Balance 288.89 42.676 875.445 Weight 54.431 kg 53.5 kg Intake: IV 140 0.9 140 Intake, IV Titration 66.89 42.676 75.445 Amount Heparin Sod,Pork in 0.45% 16.89 42.676 75.445 NaCl 25,000 unit In 0.45 % NaCl 1 250ml.bag @ 12 UNITS/KG/HR 6.532 mls/hr IV .Q24H [facility] Rx#: [id number] cefTRIAXone 1 gm In 50 Sodium Chloride 0.9% 50 ml @ 100 mls/hr IVPB Q24HR [facility] Rx#:[id number] Oral 222 660 Other: Voiding Method Bedside Commode Bedside Commode # Voids 1 1 3 - Exam General: Alert and oriented 3, sitting up in bed, NAD. Vitals reviewed Eyes: PERRL, EOMI, conjunctiva normal HENT: normocephalic, mucus membranes moist Neck: supple, no JVD Lungs: normal effort, diminished air entry with mild wheezing throughout. CV: Regular rate and rhythm, systolic murmur. Peripheral pulses 2+ Abdomen: soft, nondistended, no organomegaly Skin: warm and dry. Neuro: normal mood and affect, no focal deficits - Labs CBC & Chem 7: 09/19/21 04:56 09/19/21 04:56 Labs: Abnormal Lab Results - Last 24 Hours (Table) 09/18/21 09/18/21 09/18/21 Range/Units 17:29 18:23 20:00 MCV (80.0-100.0) fL Lymphocytes # (1.0-4.8) k/uL APTT 45.5 H (22.0-30.0) sec Sodium (137-145) mmol/L Potassium (3.5-5.1) mmol/L Carbon Dioxide (22-30) mmol/L BUN (7-17) mg/dL Glucose (74-99) mg/dL POC Glucose (mg/dL) 154 H 117 H (75-99) mg/dL Troponin I (0.000-0.034) ng/mL 09/19/21 09/19/21 09/19/21 Range/Units 04:56 04:56 04:56 MCV 103.1 H (80.0-100.0) fL Lymphocytes # 0.8 L (1.0-4.8) k/uL APTT 33.4 H (22.0-30.0) sec Sodium 134 L (137-145) mmol/L Potassium 5.7 H (3.5-5.1) mmol/L Carbon Dioxide 32 H (22-30) mmol/L BUN 22 H (7-17) mg/dL Glucose 162 H (74-99) mg/dL POC Glucose (mg/dL) (75-99) mg/dL Troponin I (0.000-0.034) ng/mL 09/19/21 09/19/21 09/19/21 Range/Units 04:56 06:26 11:39 MCV (80.0-100.0) fL Lymphocytes # (1.0-4.8) k/uL APTT (22.0-30.0) sec Sodium (137-145) mmol/L Potassium (3.5-5.1) mmol/L Carbon Dioxide (22-30) mmol/L BUN (7-17) mg/dL Glucose (74-99) mg/dL POC Glucose (mg/dL) 173 H 112 H (75-99) mg/dL Troponin I 0.399 H* (0.000-0.034) ng/mL Assessment and Plan Assessment: Acute COPD exacerbation Acute on chronic hypoxic respiratory failure secondary to the above, BiPAP dependent. There is 3 L nasal cannula O2 at home Troponins elevated secondary to demand ischemia, possible NSTEMI, cardiology following Moderate to severe aortic stenosis Bicuspid aortic valve Ascending aortic aneurysm, further monitoring outpatient Chronic back pain Mood disorder Ongoing nicotine dependence Plan: Continue on current medication regime ,monitoring and symptomatic treatment. Aggressive pulmonary toileting, steroids and nebulized bronchodilators. Anticoagulated on heparin drip. Echo pending. The impression and plan of care has been dictated as directed. : I performed a history and examination of this patient, discussed the same with the dictator. I agree with the dictator's note ,documented as a scribe. Any additional findings or plans will be noted.
[2021-09-19 20:54] LABS: Glucose,Whole Blood 120 mg/dL (75-99)
[2021-09-19] MEDS: traZODone HCL 100 MG TAB PO SCH (22:29)
[2021-09-19] MEDS: ARIPiprazole 10 MG TAB PO SCH (22:30)
[2021-09-20] MEDS: HYDROcodone/APAP 7.5-325MG 1 EACH TAB PO PRN ×4 (05:30→21:41)
[2021-09-20] MEDS: methylPREDNISolone SOD SUCCI 125 MG/2 ML VIAL IV SCH ×4 (05:30→23:27)
[2021-09-20 06:00] LABS: Basophils % (A) 0 %; Eosinophils % (A) 0 %; HCT 43.4 % (34.0-46.0); HGB 13.6 gm/dL (11.4-16.0); Lymphocytes # (A) 0.8 k/uL (1.0-4.8); Lymphocytes % (A) 8 %; MCH 32.3 pg (25.0-35.0); MCHC 31.3 g/dL (31.0-37.0); MCV 103.1 fL (80.0-100.0); Macrocytosis Slight; Mean Platelet Volume 8.3; Monocytes # (A) 0.3 k/uL (0-1.0); Monocytes % (A) 3 %; Neutrophils # (A) 9.2 k/uL (1.3-7.7); Neutrophils % (A) 88 %; Platelet Count 241 k/uL (150-450); WBC 10.5 k/uL (3.8-10.6)
[2021-09-20 06:04] LABS: Glucose,Whole Blood 117 mg/dL (75-99)
[2021-09-20] MEDS: INSULIN ASPART (NovoLOG) 100 UNIT/ML VIAL SQ SCH ×4 (06:14→21:41)
[2021-09-20 06:20] LABS: Calcium 9.5 mg/dL (8.4-10.2)
[2021-09-20] MEDS: PANTOPRAZOLE 40 MG TABLET PO SCH (06:28)
[2021-09-20] MEDS: BUDESONIDE 1 MG/2 ML NEBU INHALATION SCH ×2 (09:05→21:35)
[2021-09-20] MEDS: IPRATROPIUM-ALBUTEROL 3 ML NEB INHALATION SCH ×4 (09:05→21:35)
[2021-09-20] MEDS: FORMOTEROL FUMARATE 20 MCG/2 ML NEBU INHALATION SCH ×2 (09:05→21:35)
[2021-09-20] MEDS: APIXABAN 5 MG TAB PO SCH ×2 (09:27→21:40)
[2021-09-20] MEDS: ATORVASTATIN 80 MG TAB PO SCH (09:27)
[2021-09-20] MEDS: busPIRone HCl 5 MG TAB PO SCH ×2 (09:27→21:41)
[2021-09-20] MEDS: METOPROLOL TARTRATE 25 MG TAB PO SCH ×2 (09:27→21:40)
[2021-09-20] MEDS: GABAPENTIN 300 MG CAP PO SCH ×2 (09:27→21:41)
[2021-09-20] MEDS: ASPIRIN 81 MG PO SCH (09:27)
[2021-09-20] MEDS: OXYBUTYNIN CHLORIDE 5 MG TAB PO SCH ×2 (09:27→21:41)
[2021-09-20] MEDS: PRIMIDONE 50 MG TAB PO SCH ×2 (09:27→21:41)
[2021-09-20 11:45] LABS: Glucose,Whole Blood 172 mg/dL (75-99)
--- NOTE | 2021-09-20 13:22 | P.PN ---
Subjective This is a pleasant 50-year-old female past medical history significant for COPD, pulmonary embolism (on Eliquis) diagnosed 06/2020, hypertension, chronic nicotine dependence, ascending aortic aneurysm, bicuspid aortic valve diagnosed 03/2021. She does follows with Dr. Negron. We have been asked to see in consultation for elevated troponin. Patient presents to the emergency department shortness of breath and currently being treated for COPD exac erbation. troponin 0.11-->1.1-->0.3. She was started on BIPAP and duonebs. Patient seen and examined at bedside, her breathing has improved. Her echocardiogram revealed EF 35-40%, aortic stenosis with peak/mean gradient 31mmH/20mmHg, cannot exclude bicuspid aortic valve, trace to mild mitral regur gitation, mild tricuspid regurgitation. In March 2021, patient had an EF 50-55%, peak/mean gradient across aortic valve 44/28mmHg, and bicuspid aortic valve. Labs, sodium 135, potassium 5.0, BUN 28, serum creatinine 1.1, WBC 7.5, hemoglobin 13, platelets 241 She's currently maintained on Eliquis 5mg BID, aspirin 81 mg daily, atorvastatin 80 mg daily, metoprolol tartrate 25 mg twice a day PHYSICAL EXAMINATION Blood pressure 126/77, heart rate 91, afebrile, saturation status post percent on 5 L nasal cannula CONSTITUTIONAL: Short of breath HEENT: Neck Supple. No JVD CHEST EXAMINATION: Lungs with decreased air exchange, bilateral wheezing. HEART EXAMINATION: Regular rate and rhythm. S1, S2 heard. Systolic murmur noted at right sternal border ABDOMEN: Soft, nontender. Positive bowel sounds. EXTREMITIES: 2+ peripheral pulses, no lower extremity edema and no calf tenderness. NEUROLOGIC EXAMINATION: Patient is awake, alert and oriented x3. ASSESSMENT Acute COPD exacerbation Elevated troponin, likely related to supply and demand mismatch type II event related to hypoxemia Cardiomyopathy, etiology unclear at this time Moderate atherosclertoic calcifications within the LAD seen on CT chest Episode of Chest pain on 09/15/21, resolved, denies any further chest pain Shortness of breath Bicuspid aortic valve Moderate to severe aortic stenosis Ascending Aortic aneursym PLAN -At this time we do not plan for KARLIE or cardiac catheterization. Continue current medical regimen. Patient follows with Dr. Negron, and further discussion on timing of KARLIE after recovering from COPD exacerbation will be discussed as an outpatient. Nurse Practitioner note has been reviewed, I agree with a documented findings and plan of care. Patient was seen and examined. Objective - Vital Signs Vital signs: Vital Signs Temp 98.4 F 09/20/21 08:00 Pulse 84 09/20/21 09:36 Resp 17 09/20/21 08:00 BP 103/70 09/20/21 08:00 Pulse Ox 97 09/20/21 08:00 Intake & Output 09/19/21 09/20/21 09/20/21 18:59 06:59 18:59 Intake Total 1295.445 477 Balance 1295.445 477 Weight 55.5 kg Intake: IV 140 0.9 140 Intake, IV Titration 75.445 Amount Heparin Sod,Pork in 0.45% 75.445 NaCl 25,000 unit In 0.45 % NaCl 1 250ml.bag @ 12 UNITS/KG/HR 6.532 mls/hr IV .Q24H [facility] Rx#: [id number] Oral 1080 477 Other: Voiding Method Bedside Commode Bedside Commode Bedside Commode # Voids 3 1 - Labs CBC & Chem 7: 09/20/21 05:35 09/20/21 05:35 Labs: Abnormal Lab Results - Last 24 Hours (Table) 09/19/21 09/19/21 09/20/21 Range/Units 16:35 20:53 05:35 MCV 103.1 H (80.0-100.0) fL Neutrophils # 9.2 H (1.3-7.7) k/uL Lymphocytes # 0.8 L (1.0-4.8) k/uL Sodium (137-145) mmol/L BUN (7-17) mg/dL Creatinine (0.52-1.04) mg/dL Glucose (74-99) mg/dL POC Glucose (mg/dL) 169 H 120 H (75-99) mg/dL 09/20/21 09/20/21 09/20/21 Range/Units 05:35 06:02 11:41 MCV (80.0-100.0) fL Neutrophils # (1.3-7.7) k/uL Lymphocytes # (1.0-4.8) k/uL Sodium 135 L (137-145) mmol/L BUN 28 H (7-17) mg/dL Creatinine 1.10 H (0.52-1.04) mg/dL Glucose 119 H (74-99) mg/dL POC Glucose (mg/dL) 117 H 172 H (75-99) mg/dL
--- NOTE | 2021-09-20 14:50 | P.PN ---
Subjective Progress Note Date: 09/20/21 Principal diagnosis: Shortness of breath. Pulmonary/critical care consult dated 09/18/2021. 51-year-old female with history of COPD from tobacco use. The patient presents to the emergency department on September 18 complaining of increasing shortness of breath. She did not been feeling well for a couple days. In addition, she complains of cough, wheezing, and phlegm production. The phlegm is brown in color. She denied any fever or chills. There was no chest pain or chest discomfort. We initially went to the ER, she was away from the room getting a CAT scan of the chest. She had a CT angiogram which was negative for pulmonary embolism, but did show significant upper lobe emphysematous changes consistent with tobacco-induced emphysema or what we referred to his proximal acinar emphysema. Her BiPAP settings were 12/6 with 60% FiO2. She was getting saline at 20 mL an hour. She was awake. She did respond appropriately. She did not appear to be in significant respiratory distress. She apparently has a history of COPD, hypertension, pulmonary embolism, anxiety, neuropathy, and chronic neck and back pain. She does smoke marijuana. She drinks alcohol rarely. She does smoke cigarettes every day. White count 15.3, normal hemoglobin, hematocrit, and platelet count. D-dimer was 1.02. Sodium 135, potassium 4.6, chlorides CO2 anion gap BUN and creatinine all normal. Troponin was 0.117. N-terminal proBNP was normal. Chest x-ray was consistent with COPD. CT angiogram showed upper lobe emphysematous changes, without pulmonary embolism. Progress note dated 09/19/2021. This is a 51-year-old female seen in room 360. Yesterday we saw her in the emergency department. She was admitted with a diagnosis of COPD exacerbation. Unfortunately, she continues to smoke. This patient sees my nurse practitioner, Dr. Kaitlyn Arizmendi in the office. Currently, she is on BiPAP at 12/6 and an FiO2 of 60%. She's getting saline at 20 mL an hour. She does use home oxygen at 3 L/m, 24. White count 5, hemoglobin 13.3, hematocrit 41.4, platelet count 19 0,000. Sodium 134, potassium 5.7, chlorides 103, CO2 32, BUN 22, and creatinine 1.04. Troponins is 0.399. CT angiogram was negative for PE, but did show upper lobe emphysematous changes. Progress note dated 09/20/2021. 51-year-old female, seen again in room 360. Currently, she is doing much be tter. She is on 3 L nasal cannula. This much oxygen she uses at home. She's not on any IV fluids. She is hoping to be discharged tomorrow. Her breathing is much improved. Certainly not back to baseline. She is still coughing and wheezing a bit. Lab data includes a white count 10.5, hemoglobin 13.6, hematocrit 43.4, and a platelet count of 241,000. Sodium 135, potassium 5, chlorides 100, CO2 30, anion gap 5, BUN 28, and creatinine 1.10. CT angiogram was negative for pulmonary embolism. Objective - Vital Signs Vital signs: Vital Signs Temp 97.8 F 09/20/21 13:00 Pulse 104 H 09/20/21 13:34 Resp 16 09/20/21 13:00 BP 97/66 09/20/21 13:00 Pulse Ox 96 09/20/21 13:00 Intake & Output 09/19/21 09/20/21 09/20/21 18:59 06:59 18:59 Intake Total 1583.863 9219 Balance 5192.741 5345 Weight 55.5 kg Intake: IV 140 0.9 140 Intake, IV Titration 75.445 Amount Heparin Sod,Pork in 0.45% 75.445 NaCl 25,000 unit In 0.45 % NaCl 1 250ml.bag @ 12 UNITS/KG/HR 6.532 mls/hr IV .Q24H [facility] Rx#: [id number] Oral [id number] Other: Voiding Method Bedside Commode Bedside Commode Bedside Commode # Voids 3 1 2 - Exam No acute distress, oriented 3. Currently on 3 L nasal cannula. HEENT examination is grossly unremarkable. Neck supple. Full range of motion. No adenopathy thyromegaly or neck vein distention. Cardiovascular examination reveals regular rhythm rate. S1-S2 normal. No S3 or S4. No discernible murmur noted. Heart sounds are distant. Heart rate 93 bpm. Lungs reveal severely diminished bilateral breath sounds. Scattered expiratory wheezes scattered rhonchi are noted. No crackles. There is prolongation on forced maneuver. Breath sounds are much improved. Abdomen soft bowel sounds are heard. No masses or tenderness. Extremities are intact. No cyanosis clubbing or edema. Skin is without rash or lesion. Neurologic examination is brief but nonfocal. - Labs CBC & Chem 7: 09/20/21 05:35 09/20/21 05:35 Labs: Abnormal Lab Results - Last 24 Hours (Table) 09/19/21 09/19/21 09/20/21 Range/Units 16:35 20:53 05:35 MCV 103.1 H (80.0-100.0) fL Neutrophils # 9.2 H (1.3-7.7) k/uL Lymphocytes # 0.8 L (1.0-4.8) k/uL Sodium (137-145) mmol/L BUN (7-17) mg/dL Creatinine (0.52-1.04) mg/dL Glucose (74-99) mg/dL POC Glucose (mg/dL) 169 H 120 H (75-99) mg/dL 09/20/21 09/20/21 09/20/21 Range/Units 05:35 06:02 11:41 MCV (80.0-100.0) fL Neutrophils # (1.3-7.7) k/uL Lymphocytes # (1.0-4.8) k/uL Sodium 135 L (137-145) mmol/L BUN 28 H (7-17) mg/dL Creatinine 1.10 H (0.52-1.04) mg/dL Glucose 119 H (74-99) mg/dL POC Glucose (mg/dL) 117 H 172 H (75-99) mg/dL Assessment and Plan Assessment: Acute exacerbation of COPD. History of ongoing tobacco use with nicotine addiction. Elevated troponins, possibly related to supply/demand mismatch. Negative pulmonary embolism on CT angiogram. History of hypertension. Prior history of pulmonary embolism. History of chronic anxiety. History of neuropathy. Chronic neck and back pain. Plan: Plan dated 09/18/2021. The patient is on albuterol sulfate and ipratropium bromide, as well as Pulmicort 1 mg, and formoterol 20 g. In addition, the patient's receiving Solu-Medrol 60 mg every 6 hours, and is also receiving Rocephin. We did order a pro-calcitonin level on this patient. If it's normal, and I would discontinue antibiotics. Additional recommendations and suggestions are forthcoming. Prog nosis is guarded. The patient encouraged to quit smoking. We will continue to follow make recommendations where appropriate. Plan dated 09/19/2021. The patient's placed on appropriate medications including albuterol, ipratropium bromide, Pulmicort, and formoterol. In addition, the patient's on Solu-Medrol. She remains on BiPAP, with settings of 12/6, and 60% FiO2. She clinically looks much better today than she did yesterday. She is much more awake and alert. Pro-calcitonin level was 0.05 some antibiotics can be discontinued. The patient may have sustained a non-ST segment elevation myocardial infarction. Troponins are elevated. White count 5, hemoglobin 13.3, hematocrit 41.4, and platelet count 190,000. Sodium 134, potassium 5.7, chlorides 103, CO2 32, BUN and creatinine were 22 and 1.04. We will continue to follow make recommendations where appropriate. Cardiology has seen the patient. Plan dated 09/20/2021. Currently, the patient's on 3 L nasal cannula. Yesterday, and the day before, she was on BiPAP. She's not receiving any IV fluids. The patient is hoping to be discharged home tomorrow. The patient's breathing is much improved. Certainly not back to baseline. Labs, x-rays, and medications are all reviewed. From the pulmonary standpoint, the patient is on formoterol, 20 g, twice a day, budesonide, 1 mg, twice a day, albuterol sulfate and ipratropium bromide updrafts, 4 times a day and when necessary, and Solu-Medrol, 60 mg every 6 hours. The patient's pro-calcitonin level was normal, and antibiotics were discontinued. Prognosis is guarded. Time with Patient: Less than 30
--- NOTE | 2021-09-20 16:37 | P.PN ---
Subjective Progress Note Date: 09/20/21 Tamiko Lui is a 51 yo F with PMH of COPD, PE on eliquis, chronic back pain, tobacco use who presented to the ED with worsening shortness of breath over the past few days. She complains that over the past 4-5 days she has been feeling short of breath and she also experienced some chest pain with her coughing. She states that she has been bringing up clear mucus and noticing wheezing that was not improved with her home inhalres. She denies fever, chills, nausea or diaphoresis. On presentation she was tachycardic and hypoxic requiring BIPAP, WBC 15k, Cr 0.8, Trop 0.15, procalcitonin negative, COVID negative. CTA chest performed and no PE or acute infiltrate. 09/19/2021 maintained on BiPAP throughout the night and this morning with O2 sats in the 90s. Minimal cough, denies increased shortness of breath. Afebrile, normal WBC. Antibiotics discontinued, pro-calcitonin normal. Anticoagulated on heparin drip. Troponin 0.117, 0.160, 0.399. Denies chest pain, palpitations. 09/20/2021 maintained on BiPAP during the night and currently maintaining O2 sats in the 90s on 3 L nasal cannula. Afebrile. Labs pending. Objective - Vital Signs Vital signs: Vital Signs Temp 98.1 F 09/20/21 15:41 Pulse 88 09/20/21 15:41 Resp 17 09/20/21 15:41 BP 104/71 09/20/21 15:41 Pulse Ox 99 09/20/21 15:41 Intake & Output 09/19/21 09/20/21 09/20/21 18:59 06:59 18:59 Intake Total 5543.510 0784 Output Total 1100 Balance 1295.445 337 Weight 55.5 kg Intake: IV 140 0.9 140 Intake, IV Titration 75.445 Amount Heparin Sod,Pork in 0.45% 75.445 NaCl 25,000 unit In 0.45 % NaCl 1 250ml.bag @ 12 UNITS/KG/HR 6.532 mls/hr IV .Q24H ADILENE Rx#: [id number] Oral 1080 1437 Output: Urine 1100 Other: Voiding Method Bedside Commode Bedside Commode Bedside Commode # Voids 3 1 2 - Exam General: Alert and oriented 3, sitting up in bed, NAD. Vitals reviewed Eyes: PERRL, EOMI, conjunctiva normal HENT: normocephalic, mucus membranes moist Neck: supple, no JVD Lungs: normal effort, diminished air entry with mild expiratory wheezing throughout. CV: Regular rate and rhythm, systolic murmur. Peripheral pulses 2+ Abdomen: soft, nondistended, no organomegaly Skin: warm and dry. Neuro: normal mood and affect, no focal deficits - Labs CBC & Chem 7: 09/20/21 05:35 09/20/21 05:35 Labs: Abnormal Lab Results - Last 24 Hours (Table) 09/19/21 09/19/21 09/20/21 Range/Units 16:35 20:53 05:35 MCV 103.1 H (80.0-100.0) fL Neutrophils # 9.2 H (1.3-7.7) k/uL Lymphocytes # 0.8 L (1.0-4.8) k/uL Sodium (137-145) mmol/L BUN (7-17) mg/dL Creatinine (0.52-1.04) mg/dL Glucose (74-99) mg/dL POC Glucose (mg/dL) 169 H 120 H (75-99) mg/dL 09/20/21 09/20/21 09/20/21 Range/Units 05:35 06:02 11:41 MCV (80.0-100.0) fL Neutrophils # (1.3-7.7) k/uL Lymphocytes # (1.0-4.8) k/uL Sodium 135 L (137-145) mmol/L BUN 28 H (7-17) mg/dL Creatinine 1.10 H (0.52-1.04) mg/dL Glucose 119 H (74-99) mg/dL POC Glucose (mg/dL) 117 H 172 H (75-99) mg/dL Assessment and Plan Assessment: Acute COPD exacerbation Acute on chronic hypoxic respiratory failure secondary to the above, BiPAP dependent. There is 3 L nasal cannula O2 at home Troponins elevated secondary to demand ischemia, possible NSTEMI, cardiology following Moderate to severe aortic stenosis Bicuspid aortic valve Ascending aortic aneurysm, further monitoring outpatient Chronic back pain Mood disorder Ongoing nicotine dependence Plan: Continue on current medication regime ,monitoring and symptomatic treatment. Aggressive pulmonary toileting, steroids and nebulized bronchodilators. Anticoagulated on Eliquis. Significant clinical improvement.. Discharge planning in progress for tomorrow pending pulmonary final DC recommendations and clearance. The impression and plan of care has been dictated as directed. : I performed a history and examination of this patient, discussed the same with the dictator. I agree with the dictator's note ,documented as a scribe. Any additional findings or plans will be noted.
[2021-09-20 16:47] LABS: Glucose,Whole Blood 104 mg/dL (75-99)
[2021-09-20 20:59] LABS: Glucose,Whole Blood 142 mg/dL (75-99)
[2021-09-20] MEDS: ARIPiprazole 10 MG TAB PO SCH (21:41)
[2021-09-20] MEDS: traZODone HCL 100 MG TAB PO SCH (21:41)
[2021-09-21 06:06] LABS: Glucose,Whole Blood 115 mg/dL (75-99)
[2021-09-21] MEDS: INSULIN ASPART (NovoLOG) 100 UNIT/ML VIAL SQ SCH ×2 (06:08→12:18)
[2021-09-21] MEDS: PANTOPRAZOLE 40 MG TABLET PO SCH (06:29)
[2021-09-21] MEDS: methylPREDNISolone SOD SUCCI 125 MG/2 ML VIAL IV SCH ×2 (06:29→12:17)
[2021-09-21] MEDS: APIXABAN 5 MG TAB PO SCH (08:32)
[2021-09-21] MEDS: ATORVASTATIN 80 MG TAB PO SCH (08:32)
[2021-09-21] MEDS: PRIMIDONE 50 MG TAB PO SCH (08:32)
[2021-09-21] MEDS: ASPIRIN 81 MG PO SCH (08:33)
[2021-09-21] MEDS: METOPROLOL TARTRATE 25 MG TAB PO SCH (08:33)
[2021-09-21] MEDS: HYDROcodone/APAP 7.5-325MG 1 EACH TAB PO PRN (08:33)
[2021-09-21] MEDS: GABAPENTIN 300 MG CAP PO SCH (08:34)
[2021-09-21] MEDS: OXYBUTYNIN CHLORIDE 5 MG TAB PO SCH (08:34)
[2021-09-21] MEDS: busPIRone HCl 5 MG TAB PO SCH (08:36)
[2021-09-21] MEDS: BUDESONIDE 1 MG/2 ML NEBU INHALATION SCH (09:14)
[2021-09-21] MEDS: FORMOTEROL FUMARATE 20 MCG/2 ML NEBU INHALATION SCH (09:14)
[2021-09-21] MEDS: IPRATROPIUM-ALBUTEROL 3 ML NEB INHALATION SCH ×2 (09:14→12:57)
[2021-09-21 09:26] VITALS: PULSE 76
--- NOTE | 2021-09-21 11:22 | P.PN ---
Subjective This is a pleasant 50-year-old female past medical history significant for COPD, pulmonary embolism (on Eliquis) diagnosed 06/2020, hypertension, chronic nicotine dependence, ascending aortic aneurysm, bicuspid aortic valve diagnosed 03/2021. She does follows with Dr. Negron. We have been asked to see in consultation for elevated troponin. Patient presents to the emergency department shortness of breath and currently being treated for COPD exac erbation. troponin 0.11-->1.1-->0.3. She was started on BIPAP and duonebs. Patient seen and examined at bedside, her breathing has improved every day. She has been weaned to 2L nasal cannula. Her echocardiogram revealed EF 35-40%, aortic stenosis with peak/mean gradient 31mmH/20mmHg, cannot exclude bicuspid aortic valve, trace to mild mitral regurgitation, mild tricuspid regurgitation. In March 2021, patient had an EF 50-55%, peak/mean gradient across aortic valve 44/28mmHg, and bicuspid aortic valve. She's currently maintained on Eliquis 5mg BID, aspirin 81 mg daily, atorvastatin 80 mg daily, metoprolol tartrate 25 mg twice a day PHYSICAL EXAMINATION Blood pressure 105/71, heart rate 74, afebrile, saturation >92% on 2 L nasal cannula CONSTITUTIONAL: Short of breath HEENT: Neck Supple. No JVD CHEST EXAMINATION: Lungs with decreased air exchange, bilateral wheezing. HEART EXAMINATION: Regular rate and rhythm. S1, S2 heard. Systolic murmur noted at right sternal border ABDOMEN: Soft, nontender. Positive bowel sounds. EXTREMITIES: 2+ peripheral pulses, no lower extremity edema and no calf tenderness. NEUROLOGIC EXAMINATION: Patient is awake, alert and oriented x3. ASSESSMENT Acute COPD exacerbation Elevated troponin, likely related to supply and demand mismatch type II event related to hypoxemia Cardiomyopathy, etiology unclear at this time Moderate atherosclertoic calcifications within the LAD seen on CT chest Episode of Chest pain on 09/15/21, resolved, denies any further chest pain Shortness of breath Bicuspid aortic valve Moderate to severe aortic stenosis Ascending Aortic aneursym PLAN -At this time we do not plan for KARLIE or cardiac catheterization. Continue current medical regimen. Patient follows with Dr. Negron, and further discussion on timing of KARLIE after recovering from COPD exacerbation will be discussed as an outpatient. Patient to follow up with DR. Negron on 09/26/21 at 3:30pm -We will follow the patient as needed. Please reach out with any further questions or concerns. Nurse Practitioner note has been reviewed, I agree with a documented findings and plan of care. Patient was seen and examined. Objective - Vital Signs Vital signs: Vital Signs Temp 97.7 F 09/21/21 08:19 Pulse 76 09/21/21 09:33 Resp 16 09/21/21 08:19 BP 105/71 09/21/21 08:19 Pulse Ox 98 09/21/21 08:19 Intake & Output 09/20/21 09/21/21 09/21/21 18:59 06:59 18:59 Intake Total 1674 480 Output Total 1100 Balance 574 480 Weight 55.5 kg Intake: Oral 1674 480 Output: Urine 1100 Other: Voiding Method Bedside Commode Bedside Commode # Voids 2 1 - Labs CBC & Chem 7: 09/20/21 05:35 09/20/21 05:35 Labs: Abnormal Lab Results - Last 24 Hours (Table) 09/20/21 09/20/21 09/20/21 Range/Units 11:41 16:45 20:49 POC Glucose (mg/dL) 172 H 104 H 142 H (75-99) mg/dL 09/21/21 Range/Units 05:57 POC Glucose (mg/dL) 115 H (75-99) mg/dL
[2021-09-21 11:30] LABS: Glucose,Whole Blood 117 mg/dL (75-99)
--- NOTE | 2021-09-21 12:02 | P.DS ---
Providers Date of admission: 09/18/21 06:02 Expected date of discharge: 09/21/21 Attending physician: Delfino Tyler MD Consults: 09/18/21 06:09 Consult Physician Routine Consulting Provider: Amada Nunn Consult Reason/Comments: COPD exacerbation Do you want consulting provider notified?: Yes 09/18/21 12:34 Consult Physician Routine Consulting Provider: Sara Gordon Consult Reason/Comments: ELEVATED TROPONIN Do you want consulting provider notified?: Yes Primary care physician: Minal Jauregui Hospital Course: Final diagnoses: Acute COPD exacerbation Acute on chronic hypoxic respiratory failure secondary to the above, BiPAP dependent. Wears 2- 3 L nasal cannula O2 at home Troponins elevated secondary to demand ischemia, possible NSTEMI, cardiology following Moderate to severe aortic stenosis Bicuspid aortic valve Ascending aortic aneurysm, further monitoring outpatient Chronic back pain Mood disorder Ongoing nicotine dependence Hospital course:Tamiko Lui is a 51 yo F with PMH of COPD, PE on eliquis, chronic back pain, tobacco use who presented to the ED with worsening shortness of breath over the past few days. She complains that over the past 4-5 days she has been feeling short of breath and she also experienced some chest pain with her coughing. She states that she has been bringing up clear mucus and noticing wheezing that was not improved with her home inhalres. She denies fever, chills, nausea or diaphoresis. On presentation she was tachycardic and hypoxic requiring BIPAP, WBC 15k, Cr 0.8, Trop 0.15, procalcitonin negative, COVID nega tive. CTA chest performed and no PE or acute infiltrate. 09/19/2021 maintained on BiPAP throughout the night and this morning with O2 sats in the 90s. Minimal cough, denies increased shortness of breath. Afebrile, normal WBC. Antibiotics discontinued, pro-calcitonin normal. Anticoagulated on heparin drip. Troponin 0.117, 0.160, 0.399. Denies chest pain, palpitations. 09/20/2021 maintained on BiPAP during the night and currently maintaining O2 sats in the 90s on 3 L nasal cannula. Afebrile. Labs pending. Significant clinical improvement, did not require BiPAP during the night, main taining O2 sats in the high 90s on 2 L nasal cannula-at baseline. Denies chest pain, palpitations or increased shortness of breath. Minimal wheezing, better air entry. Patient will be discharged home today in a stable condition with guarded prognosis pending final DC recommendations and clearance per pulmonary. The impression and plan of care has been dictated as directed. : I performed a history and examination of this patient, discussed the same with the dictator. I agree with the dictator's note ,documented as a scribe. Any additional findings or plans will be noted. Patient Condition at Discharge: Stable Plan - Discharge Summary Discharge Rx Participant: No New Discharge Prescriptions: New Atorvastatin [Lipitor] 80 mg PO DAILY #30 tab Metoprolol Tartrate [Lopressor] 25 mg PO BID #60 tab Gabapentin [Neurontin] 300 mg PO BID #6 cap Aspirin 81 mg PO DAILY tab predniSONE 10 mg PO DIRECTED #30 tab Continue Primidone [Mysoline] 50 mg PO BID Cyanocobalamin [Vitamin B-12 Injection] 1,000 mcg IM QMONTHLY Desvenlafaxine [Pristiq ER] 100 mg PO HS Desvenlafaxine Succinate [Pristiq ER] 50 mg PO HS Butalbital/Aspirin/Caffeine [Iyftkc-Irshrei-Imbgdkro 50-325-40 mg] 1 tab PO Q8H PRN PRN Reason: Headache Ipratropium-Albuterol Nebulize [Duoneb 0.5 mg-3 mg/3 ml Soln] 3 ml INHALATION RT-QID traZODone HCL 200 mg PO HS ARIPiprazole [Abilify] 10 mg PO HS Benzonatate [Tessalon Perles] 200 mg PO TID PRN PRN Reason: Cough Fexofenadine HCl [Vanessa Allergy] 180 mg PO DAILY Famotidine [Pepcid] 20 mg PO BID #30 tablet Albuterol Sulfate [Proair Hfa] 2 puff INHALATION RT-Q4H PRN PRN Reason: Shortness Of Breath Methocarbamol [Robaxin-750] 750 mg PO TID PRN PRN Reason: Muscle Spasm Apixaban [Eliquis] 5 mg PO BID Oxybutynin Chloride 5 mg PO BID HYDROcodone/APAP 10-325MG [Zimmerman 10-325] 1 tab PO TID Fluticasone Nasal [place] [Flonase Nasal [place]] 1 spray EA NOSTRIL DAILY PRN PRN Reason: Congestion busPIRone HCL 15 mg PO BID Fluticasone/Salmeterol [Advair 250-50 Diskus] 1 puff INHALATION RT-BID Discharge Medication List Butalbital/Aspirin/Caffeine [Dwmutr-Mfjbifs-Tecisuwu 50-325-40 mg] 1 tab PO Q8H PRN 11/30/19 [History] Cyanocobalamin [Vitamin B-12 Injection] 1,000 mcg IM QMONTHLY 11/30/19 [History] Desvenlafaxine Succinate [Pristiq ER] 50 mg PO HS 11/30/19 [History] Desvenlafaxine [Pristiq ER] 100 mg PO HS 11/30/19 [History] Primidone [Mysoline] 50 mg PO BID 11/30/19 [History] Ipratropium-Albuterol Nebulize [Duoneb 0.5 mg-3 mg/3 ml Soln] 3 ml INHALATION RT-QID 06/14/20 [History] traZODone HCL 200 mg PO HS 06/14/20 [History] ARIPiprazole [Abilify] 10 mg PO HS 03/27/21 [History] Apixaban [Eliquis] 5 mg PO BID 03/27/21 [History] Benzonatate [Tessalon Perles] 200 mg PO TID PRN 03/27/21 [History] Fexofenadine HCl [Vanessa Allergy] 180 mg PO DAILY 03/27/21 [History] Famotidine [Pepcid] 20 mg PO BID #30 tablet 03/29/21 [Rx] Albuterol Sulfate [Proair Hfa] 2 puff INHALATION RT-Q4H PRN 09/18/21 [History] Fluticasone Nasal [place] [Flonase Nasal [place]] 1 spray EA NOSTRIL DAILY PRN 09/18/21 [History] Fluticasone/Salmeterol [Advair 250-50 Diskus] 1 puff INHALATION RT-BID 09/18/21 [History] HYDROcodone/APAP 10-325MG [[place] 10-325] 1 tab PO TID 09/18/21 [History] Methocarbamol [Robaxin-750] 750 mg PO TID PRN 09/18/21 [History] Oxybutynin Chloride 5 mg PO BID 09/18/21 [History] busPIRone HCL 15 mg PO BID 09/18/21 [History] Aspirin 81 mg PO DAILY tab 09/21/21 [Rx] Atorvastatin [Lipitor] 80 mg PO DAILY #30 tab 09/21/21 [Rx] Gabapentin [Neurontin] 300 mg PO BID #6 cap 09/21/21 [Rx] Metoprolol Tartrate [Lopressor] 25 mg PO BID #60 tab 09/21/21 [Rx] predniSONE 10 mg PO DIRECTED #30 tab 09/21/21 [Rx] Follow up Appointment(s)/Referral(s): Martin Negron MD [STAFF PHYSICIAN] - 09/26/21 3:30 pm (@ [facility] ([facility])) Delfino Tyler MD [STAFF PHYSICIAN] - 09/22/21 Ambulatory/Diagnostic Orders: Basic Metabolic Panel [LAB.AMB] Time Frame: 3 Days, Location: None Selected
[2021-09-21 12:17] VITALS: BP 119/87; RESP 18; TEMP 98.3
--- NOTE | 2021-09-21 13:45 | PN ---
PROGRESS NOTE This is a 51-year-old female who likely will be discharged home today. She is seen again in room 360. She is doing much better. She does use oxygen at home at 2 L. Currently not on any IV fluids. We did get her an appointment to see Dr. Kaitlyn Adler in the office on September 28 at 4 p.m. The patient is doing much better. She is feeling much less short of breath. I told her she is is going home to rest and take it easy. She should not run around. No smoking. Current vital signs include temperature 98.3, heart rate 76, respiratory rate 18, blood pressure 119/87, mean 97. Two-liter saturation 97%. GENERAL APPEARANCE: She appears in no acute distress. HEENT: Examination is grossly unremarkable. NECK: Supple. Full range of motion. No adenopathy. Neck veins are flat. CARDIOVASCULAR: Examination reveals regular rhythm and rate. S1, S2 normal. No S3, S4 or murmur. LUNGS: Lungs reveal some mild expiratory rhonchi and expiratory wheezes. Breath sounds are equal. Breath sounds are diminished throughout. Breath sounds are much improved. ABDOMEN: Soft. Bowel sounds are heard. EXTREMITIES: Intact. No cyanosis, clubbing or edema. SKIN: Without rash. NEUROLOGIC: Examination is brief but nonfocal. No new labs today. No x-rays to review today. Medications are reviewed. She has appointments with her primary care physician and also Dr. Pérez Negron. ASSESSMENT: 1. Acute exacerbation of chronic obstructive pulmonary disease. 2. History of ongoing tobacco use with nicotine addiction. 3. Elevated troponins, possibly related to supply/demand mismatch. 4. Negative pulmonary embolism on CT angiogram. 5. History of essential hypertension. 6. Prior history of pulmonary embolism. 7. History of chronic anxiety. 8. History of neuropathy. 9. Chronic neck and back pain. PLAN: The patient is doing well. It appears that she will be discharged home today. No additional recommendations are made. We did make her an appointment to follow up with our nurse practitioner. Will continue to follow. Medications are reviewed. MMODL / IJN: [id number] /
--- NOTE | 2021-09-22 08:58 | ECHOF ---
Referral Reason:Repeat to assess aortic valve and LV function MEASUREMENTS -------- HEIGHT: 162.6 cm WEIGHT: 54.4 kg BP: 90/59 RVIDd: 2.7 cm (< 3.3) IVSd: 1.2 cm (0.6 - 1.1) LVIDd: 4.4 cm (3.9 - 5.3) LVPWd: 1.3 cm (0.6 - 1.1) IVSs: 1.6 cm LVIDs: 3.6 cm LVPWs: 1.4 cm LA Diam: 3.0 cm (2.7 - 3.8) LAESV Index (A-L): 15.18 ml/m Ao Diam: 4.1 cm (2.0 - 3.7) AV Cusp: 1.3 cm (1.5 - 2.6) MV EXCURSION: 13.362 mm (> 18.000) MV EF SLOPE: 76 mm/s (70 - 150) EPSS: 0.9 cm MV E Anthony: 0.68 m/s MV DecT: 171 ms MV A Anthony: 0.84 m/s MV E/A Ratio: 0.81 AV maxP.60 mmHg AV meanP.62 mmHg RAP: 5.00 mmHg RVSP: 24.33 mmHg FINDINGS -------- Sinus rhythm. This was a technically adequate study. The left ventricular size is normal. There is mild concentric left ventricular hypertrophy. Overa ll left ventricular systolic function is moderately impaired with, an EF between 35 - 40 %. The right ventricle is normal in size. Normal LA size by volume 22+/-6 ml/m2. The right atrium is normal in size. Interatrial and interventricular septum intact. There is mild aortic valve sclerosis. There is severe aortic stenosis present. Peak/mean gradient across the Aortic Valve is 31.60mmHg / 20.62mmHg. Can't exclude possible Bicuspid Aov. There is trace to mild mitral regurgitation. Mild tricuspid regurgitation present. Right ventricular systolic pressure is normal at < 35 mmHg. The pulmonic valve was not well visualized. The aortic root is dilated measuring 4.1cm. Normal inferior vena cava with normal inspiratory collapse consistent with estimated right atrial pre ssure of 5 mmHg. The inferior vena cava is mildly dilated. There is no pericardial effusion. CONCLUSIONS -------- 1. The left ventricular size is normal. 2. There is mild concentric left ventricular hypertrophy. 3. Overall left ventricular systolic function is moderately impaired with, an EF between 35 - 40 %. 4. There is mild aortic valve sclerosis. 5. There is severe aortic stenosis present. 6 consider KARLIE to asess - gradients underestimating 6. Peak/mean gradient across the Aortic Valve is 31.60mmHg / 20.62mmHg. 7. Can't exclude possible Bicuspid Aov. 8. There is trace to mild mitral regurgitation. 9. Mild tricuspid regurgitation present. 10. The aortic root is dilated measuring 4.1cm. 11. The inferior vena cava is mildly dilated. 12. There is no pericardial effusion. COLLECTOR: Ирина Trevino RDCS
== END 2021-09-21 13:26 | disposition home or self-care (01) | DRG 190 ==
LOC: EC 04:32 → 3SCARD 06:02
PROVIDERS: ADMIT Family Medicine; ATTEND Family Medicine
DX: J44.1 Chronic obstructive pulmonary disease with (acute) exacerbation (principal); J96.21 Acute and chronic respiratory failure with hypoxia; I21.4 Non-ST elevation (NSTEMI) myocardial infarction; I24.8 Other forms of acute ischemic heart disease; I42.9 Cardiomyopathy, unspecified; F12.90 Cannabis use, unspecified, uncomplicated; F17.210 Nicotine dependence, cigarettes, uncomplicated; F39 Unspecified mood [affective] disorder; G89.29 Other chronic pain; I10 Essential (primary) hypertension; I35.0 Nonrheumatic aortic (valve) stenosis; Z20.822 Contact with and (suspected) exposure to COVID-19; Z79.01 Long term (current) use of anticoagulants; Z79.82 Long term (current) use of aspirin; Z79.899 Other long term (current) drug therapy; Z80.49 Family history of malignant neoplasm of other genital organs; Z82.49 Family history of ischemic heart disease and other diseases of the circulatory system; Z86.711 Personal history of pulmonary embolism; Z90.710 Acquired absence of both cervix and uterus; Z98.82 Breast implant status; F41.9 Anxiety disorder, unspecified; G62.9 Polyneuropathy, unspecified; M54.2 Cervicalgia; M54.50 Low back pain, unspecified; K21.9 Gastro-esophageal reflux disease without esophagitis; I71.2 Thoracic aortic aneurysm, without rupture
CPT/HCPCS: 36415; 71045; 71275; 80048; 80053; 83605; 83880; 84145; 84484; 85025; 85379; 85610; 85730; 87635; 93005; 93306; 94640; 94660; 94667; 99285

== ENCOUNTER 2022-02-17 18:11 | Observation (INO) | payer OTHER ==
[2022-02-17] MEDS ORDERED: MAGNESIUM SULFATE-D5W PMX 2 GM in DEXTROSE/WATER 1 100ML.BAG IVPB STA (18:16)
[2022-02-17] MEDS ORDERED: SODIUM CHLORIDE 0.9% 1,000 ML IV STA (18:16)
[2022-02-17] MEDS ORDERED: IPRATROPIUM-ALBUTEROL 3 ML NEB INHALATION STA (18:16)
--- NOTE | 2022-02-17 18:35 | ED ---
SOB HPI - General Chief Complaint: Shortness of Breath Stated Complaint: CHEO Time Seen by Provider: 02/17/22 18:11 Source: patient, EMS, RN notes reviewed, old records reviewed Mode of arrival: EMS Limitations: no limitations - History of Present Illness Initial Comments: 51-year-old female with a history of COPD who presents by EMS with complaints of shortness of breath is been going on for about a week he progressively worse she is on 4 L of oxygen at home she was found have 80% sat home and later he sat it down into the 70s. She will was brought in by EMS he was placed on BiPAP with some improvement upon arrival she was noted have a 99.5 axillary temperature. She denies any fevers chills or sweats she has a cough with minimal phlegm production MD Complaint: shortness of breath - Related Data Home Medications Medication Instructions Recorded Confirmed Desvenlafaxine Succinate [Pristiq 50 mg PO HS 11/30/19 02/17/22 ER] Desvenlafaxine [Pristiq ER] 100 mg PO HS 11/30/19 02/17/22 Primidone [Mysoline] 100 mg PO HS 11/30/19 02/17/22 Ipratropium-Albuterol Nebulize 3 ml INHALATION RT-QID 06/14/20 02/17/22 [Duoneb 0.5 mg-3 mg/3 ml Soln] traZODone HCL 200 mg PO HS 06/14/20 02/17/22 HYDROcodone/APAP 10-325MG [[place] 1 tab PO TID PRN 09/18/21 02/17/22 10-325] Methocarbamol [Robaxin-750] 750 mg PO TID PRN 09/18/21 02/17/22 Albuterol Sulfate [Proair Hfa] 1 - 2 puff INHALATION RT-Q6H PRN 02/17/22 02/17/22 Cariprazine HCl [Vraylar] 3 mg PO HS 02/17/22 02/17/22 Ergocalciferol [Vitamin D2 (1250 1,250 mcg PO MO 02/17/22 02/17/22 Mcg = 92158 Iu)] Fluticasone/Umeclidin/Vilanter 1 puff INHALATION RT-DAILY 02/17/22 02/17/22 [Trelegy Ellipta 100-62.5-25] Previous Rx's Medication Instructions Recorded Gabapentin [Neurontin] 300 mg PO BID #6 cap 09/21/21 Allergies Allergy/AdvReac Type Severity Reaction Status Date / Time amitriptyline [From Elavil] Allergy Unknown Verified 02/17/22 20:01 pregabalin [From Lyrica] Allergy Unknown Verified 02/17/22 20:01 Review of Systems ROS Statement: Those systems with pertinent positive or pertinent negative responses have been documented in the HPI. ROS Other: All systems not noted in ROS Statement are negative. Past Medical History Past Medical History: Asthma, COPD, GERD/Reflux, Hypertension, Pneumonia, Pulmonary Embolus (PE), Respiratory Disorder, Vascular Disorder Additional Past Medical History / Comment(s): Brain aneurysm with repair, neuropathy R entire side and L lower extremity, home O2 at 2L/NC ATC mostly, bronchitis, pt cannot recall PEs laterallity, chronic lower back/cervical pain, sinus problems History of Any Multi-Drug Resistant Organisms: None Reported Past Surgical History: Adenoidectomy, Section, Cholecystectomy, Hysterectomy, Tonsillectomy Additional Past Surgical History / Comment(s): D&C, lower back pain clinic procedure/ablation, several mini laparoscopies d/t abnormal vaginal bleeding, brain aneurysm repair, septoplasty/facial cyst excision, dental extractions, bilateral breast implants Past Anesthesia/Blood Transfusion Reactions: No Reported Reaction Additional Past Anesthesia/Blood Transfusion Reaction / Comment(s): Pt received blood in past without reaction. Past Psychological History: No Psychological Hx Reported Smoking Status: Current every day smoker - Past Family History Mother Family Medical History: Cancer Additional Family Medical History / Comment(s): Uterine cancer Father Family Medical History: Respiratory Disorder Additional Family Medical History / Comment(s): Father from pulmonary fibrosis. General Exam - General Exam Comments Initial Comments: This is a Well-developed thin appearing female who is awake alert oriented x3 demonstrated respiratory distress Limitations: no limitations General appearance: alert, anxious, in distress Head exam: Present: atraumatic, normocephalic, normal inspection Eye exam: Present: normal appearance, PERRL, EOMI. Absent: scleral icterus, conjunctival injection, periorbital swelling ENT exam: Present: mucous membranes dry Neck exam: Present: normal inspection, full ROM, other (No stridor JVD or bruits). Absent: tenderness, meningismus, lymphadenopathy Respiratory exam: Present: normal lung sounds bilaterally, accessory muscle use, other (Tachypnea). Absent: respiratory distress, wheezes, rales, rhonchi, stridor Cardiovascular Exam: Present: normal rhythm, tachycardia, normal heart sounds. Absent: systolic murmur, diastolic murmur, rubs, gallop, clicks GI/Abdominal exam: Present: soft, normal bowel sounds. Absent: distended, tenderness, guarding, rebound, rigid Extremities exam: Present: normal inspection, full ROM, normal capillary refill. Absent: tenderness, pedal edema, joint swelling, calf tenderness Back exam: Present: normal inspection Neurological exam: Present: alert, oriented X3, CN II-XII intact Psychiatric exam: Present: normal affect, normal mood Skin exam: Present: warm, dry, intact, normal color. Absent: rash Course Vital Signs 02/17/22 02/17/22 02/17/22 18:13 18:23 18:34 Temperature 99.5 F Pulse Rate 136 H 134 H 135 H Respiratory 32 H 25 H 24 Rate Blood Pressure 132/96 O2 Sat by Pulse 100 Oximetry 02/17/22 02/17/22 18:50 19:15 Temperature Pulse Rate 122 H Respiratory 30 H 24 Rate Blood Pressure 99/80 O2 Sat by Pulse 98 Oximetry - Reevaluation(s) Reevaluation #1: 02/17/22 21:26 She get some improvement after the initial treatment. Medical Decision Making - Medical Decision Making PT is improvement after aggressive treatment. I did discuss the findings with her and family members patient does have influenza type A. Be admitted for continued treatment of COPD exacerbation as well as the influenza type a. I did discuss the case with Dr. Lewis. - Lab Data Result diagrams: 02/17/22 18:28 02/17/22 18:28 Lab Results 02/17/22 02/17/22 02/17/22 Range/Units 18:28 18:28 18:28 WBC 22.6 H (3.8-10.6) k/uL RBC 4.81 (3.80-5.40) m/uL Hgb 15.2 (11.4-16.0) gm/dL Hct 47.0 H (34.0-46.0) % MCV 97.7 (80.0-100.0) fL MCH 31.6 (25.0-35.0) pg MCHC 32.4 (31.0-37.0) g/dL RDW 13.2 (11.5-15.5) % Plt Count 236 (150-450) k/uL MPV 8.0 Neutrophils % 91 % Lymphocytes % 4 % Monocytes % 3 % Eosinophils % 1 % Basophils % 0 % Neutrophils # 20.5 H (1.3-7.7) k/uL Lymphocytes # 0.9 L (1.0-4.8) k/uL Monocytes # 0.8 (0-1.0) k/uL Eosinophils # 0.1 (0-0.7) k/uL Basophils # 0.1 (0-0.2) k/uL PT 10.0 (9.0-12.0) sec INR 0.9 (<1.2) APTT 24.3 (22.0-30.0) sec D-Dimer 0.53 (<0.60) mg/L FEU Sodium 131 L (137-145) mmol/L Potassium 4.4 (3.5-5.1) mmol/L Chloride 96 L (98-107) mmol/L Carbon Dioxide 26 (22-30) mmol/L Anion Gap 9 mmol/L BUN 9 (7-17) mg/dL Creatinine 0.74 (0.52-1.04) mg/dL Est GFR (CKD-EPI)AfAm >90 (>60 ml/min/1.73 sqM) Est GFR (CKD-EPI)NonAf >90 (>60 ml/min/1.73 sqM) Glucose 166 H (74-99) mg/dL Plasma Lactic Acid Juan (0.7-2.0) mmol/L Calcium 8.8 (8.4-10.2) mg/dL Magnesium 1.7 (1.6-2.3) mg/dL Total Bilirubin 0.5 (0.2-1.3) mg/dL AST 18 (14-36) U/L ALT 14 (4-34) U/L Alkaline Phosphatase 92 (38-126) U/L Troponin I (0.000-0.034) ng/mL NT-Pro-B Natriuret Pep pg/mL Total Protein 6.7 (6.3-8.2) g/dL Albumin 4.2 (3.5-5.0) g/dL Coronavirus (PCR) (Not Detectd) Influenza Type A RNA (Not Detectd) Influenza Type B (PCR) (Not Detectd) 02/17/22 02/17/22 02/17/22 Range/Units 18:28 18:28 18:28 WBC (3.8-10.6) k/uL RBC (3.80-5.40) m/uL Hgb (11.4-16.0) gm/dL Hct (34.0-46.0) % MCV (80.0-100.0) fL MCH (25.0-35.0) pg MCHC (31.0-37.0) g/dL RDW (11.5-15.5) % Plt Count (150-450) k/uL MPV Neutrophils % % Lymphocytes % % Monocytes % % Eosinophils % % Basophils % % Neutrophils # (1.3-7.7) k/uL Lymphocytes # (1.0-4.8) k/uL Monocytes # (0-1.0) k/uL Eosinophils # (0-0.7) k/uL Basophils # (0-0.2) k/uL PT (9.0-12.0) sec INR (<1.2) APTT (22.0-30.0) sec D-Dimer (<0.60) mg/L FEU Sodium (137-145) mmol/L Potassium (3.5-5.1) mmol/L Chloride (98-107) mmol/L Carbon Dioxide (22-30) mmol/L Anion Gap mmol/L BUN (7-17) mg/dL Creatinine (0.52-1.04) mg/dL Est GFR (CKD-EPI)AfAm (>60 ml/min/1.73 sqM) Est GFR (CKD-EPI)NonAf (>60 ml/min/1.73 sqM) Glucose (74-99) mg/dL Plasma Lactic Acid Juan 1.1 (0.7-2.0) mmol/L Calcium (8.4-10.2) mg/dL Magnesium (1.6-2.3) mg/dL Total Bilirubin (0.2-1.3) mg/dL AST (14-36) U/L ALT (4-34) U/L Alkaline Phosphatase (38-126) U/L Troponin I 0.029 (0.000-0.034) ng/mL NT-Pro-B Natriuret Pep 140 pg/mL Total Protein (6.3-8.2) g/dL Albumin (3.5-5.0) g/dL Coronavirus (PCR) (Not Detectd) Influenza Type A RNA (Not Detectd) Influenza Type B (PCR) (Not Detectd) 02/17/22 02/17/22 Range/Units 18:28 18:28 WBC (3.8-10.6) k/uL RBC (3.80-5.40) m/uL Hgb (11.4-16.0) gm/dL Hct (34.0-46.0) % MCV (80.0-100.0) fL MCH (25.0-35.0) pg MCHC (31.0-37.0) g/dL RDW (11.5-15.5) % Plt Count (150-450) k/uL MPV Neutrophils % % Lymphocytes % % Monocytes % % Eosinophils % % Basophils % % Neutrophils # (1.3-7.7) k/uL Lymphocytes # (1.0-4.8) k/uL Monocytes # (0-1.0) k/uL Eosinophils # (0-0.7) k/uL Basophils # (0-0.2) k/uL PT (9.0-12.0) sec INR (<1.2) APTT (22.0-30.0) sec D-Dimer (<0.60) mg/L FEU Sodium (137-145) mmol/L Potassium (3.5-5.1) mmol/L Chloride (98-107) mmol/L Carbon Dioxide (22-30) mmol/L Anion Gap mmol/L BUN (7-17) mg/dL Creatinine (0.52-1.04) mg/dL Est GFR (CKD-EPI)AfAm (>60 ml/min/1.73 sqM) Est GFR (CKD-EPI)NonAf (>60 ml/min/1.73 sqM) Glucose (74-99) mg/dL Plasma Lactic Acid Juan (0.7-2.0) mmol/L Calcium (8.4-10.2) mg/dL Magnesium (1.6-2.3) mg/dL Total Bilirubin (0.2-1.3) mg/dL AST (14-36) U/L ALT (4-34) U/L Alkaline Phosphatase (38-126) U/L Troponin I (0.000-0.034) ng/mL NT-Pro-B Natriuret Pep pg/mL Total Protein (6.3-8.2) g/dL Albumin (3.5-5.0) g/dL Coronavirus (PCR) Not Detected (Not Detectd) Influenza Type A RNA Detected H (Not Detectd) Influenza Type B (PCR) Not Detected (Not Detectd) - EKG Data -: EKG Interpreted by Me EKG shows normal: sinus rhythm (Sinus tachycardia rate 121. Interval 18 QRS duration 81 QT since QTC 338/[address] configuration) - Radiology Data Radiology results: report reviewed (Imaging reviewed no definitive infiltrate seen.), image reviewed Critical Care Time Critical Care Time: Yes Total Critical Care Time: 39 Critical Care Time: Critical care time includes initial presentation with history physical labs x- rays multiple reevaluation the patient to responsive therapy discuss with the EMS crew upon arrival review of old charting discussed with the admitting physician admission orders and documentation the above Disposition Clinical Impression: Influenza A, Acute respiratory distress syndrome in adult, COPD exacerbation, Leukocytosis, Febrile illness, acute Disposition: ADMITTED IP TO THIS HOSP Condition: Fair Referrals: None,Stated [REFERRING] - 1-2 days Decision Date: 02/17/22 Decision Time: 21:28
[2022-02-17 18:36] LABS: Basophils # (A) 0.1 k/uL (0-0.2); Basophils % (A) 0 %; Eosinophils # (A) 0.1 k/uL (0-0.7); Eosinophils % (A) 1 %; HGB 15.2 gm/dL (11.4-16.0); Lymphocytes # (A) 0.9 k/uL (1.0-4.8); Lymphocytes % (A) 4 %; MCH 31.6 pg (25.0-35.0); MCHC 32.4 g/dL (31.0-37.0); MCV 97.7 fL (80.0-100.0); Monocytes # (A) 0.8 k/uL (0-1.0); Monocytes % (A) 3 %; Neutrophils # (A) 20.5 k/uL (1.3-7.7); Neutrophils % (A) 91 %; Platelet Count 236 k/uL (150-450); RBC 4.81 m/uL (3.80-5.40); RDW 13.2 % (11.5-15.5); WBC 22.6 k/uL (3.8-10.6)
[2022-02-17 18:51] LABS: ALT 14 U/L (4-34); AST 18 U/L (14-36); African American GFR (CKD) >90 (>60 ml/min/1.73 sqM); Albumin 4.2 g/dL (3.5-5.0); Alkaline Phosphatase 92 U/L (38-126); Anion Gap 9 mmol/L; Blood Urea Nitrogen 9 mg/dL (7-17); Calcium 8.8 mg/dL (8.4-10.2); Carbon Dioxide 26 mmol/L (22-30); Chloride 96 mmol/L (98-107); Glucose 166 mg/dL (74-99); INR 0.9 (<1.2); Magnesium 1.7 mg/dL (1.6-2.3); Non-African American GFR(CKD) >90 (>60 ml/min/1.73 sqM); Partial Thromboplastin Time 24.3 sec (22.0-30.0); Potassium 4.4 mmol/L (3.5-5.1); Sodium 131 mmol/L (137-145); Total Bilirubin 0.5 mg/dL (0.2-1.3); Total Protein 6.7 g/dL (6.3-8.2)
--- NOTE | 2022-02-17 19:15 | XR ---
EXAMINATION TYPE: XR chest 1V portable DATE OF EXAM: 02/17/2022 COMPARISON: 09/18/2021 HISTORY: Short of breath TECHNIQUE: Single view FINDINGS: There is some pulmonary hyperinflation and flattening of the diaphragm. Are some emphysemat ous changes in the upper lobes. Heart size is normal. Thoracic aorta is atheromatous. There is some m ild fibrotic changes at the lung apices. IMPRESSION: COPD. No acute lung disease. Normal heart. No change
[2022-02-17] MEDS ORDERED: OSELTAMIVIR 75 MG CAP PO STA (21:29)
[2022-02-17] MEDS: HYDROcodone/APAP 10-325MG 1 EACH TAB PO PRN (22:14)
[2022-02-18] MEDS: SODIUM CHLORIDE 0.9% 1,000 ML IV SCH ×3 (00:05→17:23)
[2022-02-18] MEDS: methylPREDNISolone SOD SUCCI 125 MG/2 ML VIAL IV SCH ×4 (00:05→17:22)
[2022-02-18] MEDS ORDERED: GABAPENTIN 300 MG CAP PO STA (00:12)
[2022-02-18] MEDS ORDERED: SYMBICORT 80-4.5 MCG INHALER INHALATION SCH (08:00)
[2022-02-18] MEDS: GABAPENTIN 300 MG CAP PO SCH ×2 (08:09→22:03)
[2022-02-18] MEDS: HYDROcodone/APAP 10-325MG 1 EACH TAB PO PRN ×2 (08:09→17:21)
[2022-02-18] MEDS: OSELTAMIVIR 75 MG CAP PO SCH (08:09)
[2022-02-18] MEDS: IPRATROPIUM-ALBUTEROL 3 ML NEB INHALATION PRN ×3 (08:15→21:27)
[2022-02-18] MEDS ORDERED: methocarbamoL 750 MG TAB PO PRN (09:00)
[2022-02-18 09:16] LABS: Magnesium 2.5 mg/dL (1.5-2.4)
[2022-02-18 09:19] LABS: HCT 47.4 % (37.2-46.3); HGB 14.9 g/dL (12.0-15.0); MCH 30.8 pg (27.0-32.0); MCHC 31.4 g/dL (32.0-37.0); MCV 97.9 fL (80.0-97.0); Mean Platelet Volume 10.9 fL (9.5-12.2); NRBC Per 100 WBC 0 /100 WBCS (0.0-0.0); Platelet Count 181 X 10*3/uL (140-440); RBC 4.84 X 10*6/uL (4.10-5.20); RDW 12.9 % (11.5-14.5); WBC 9.79 X 10*3/uL (4.50-10.00)
[2022-02-18 09:47] LABS: African American GFR (CKD) 98.9 (60.0-200.0); Albumin/Globulin Ratio 1.6 (1.60-3.17); Anion Gap 14.2 mmol/L (10.00-18.00); BUN/Creat Ratio 13.25 Ratio (12.00-20.00); Blood Urea Nitrogen 10.6 mg/dL (9.0-27.0); Calcium 9.3 mg/dL (8.7-10.3); Carbon Dioxide 24.8 mmol/L (20.0-27.5); Globulin 2.5 g/dL (1.6-3.3); Non-African American GFR(CKD) 85.4 (60.0-200.0); Potassium 5.2 mmol/L (3.5-5.5); Total Bilirubin 0.3 mg/dL (0.30-1.20); Total Protein 6.5 g/dL (6.2-8.2)
--- NOTE | 2022-02-18 10:06 | P.CN ---
Psychiatric Consult - . Consult date: 02/18/22 Consult:: 02/18/22 10:00 This is a psychiatric assessment on Tamiko Lui who is a 51-year-old female is currently hospitalized with exacerbation of her COPD Following information is an abstract from the assessment done yesterday: 51-year-old female with a history of COPD who presents by EMS with complaints of shortness of breath is been going on for about a week he progressively worse she is on 4 L of oxygen at home she was found have 80% sat home and later he sat it down into the 70s. She will was brought in by EMS he was placed on BiPAP with some improvement upon arrival she was noted have a 99.5 axillary temperature. She denies any fevers chills or sweats she has a cough with minimal phlegm production MD Complaint: shortness of breath - Related Data Home Medications Medication Instructions Recorded Confirmed Desvenlafaxine Succinate [Pristiq 50 mg PO HS 11/30/19 02/17/22 ER] Desvenlafaxine [Pristiq ER] 100 mg PO HS 11/30/19 02/17/22 Primidone [Mysoline] 100 mg PO HS 11/30/19 02/17/22 Ipratropium-Albuterol Nebulize 3 ml INHALATION RT-QID 06/14/20 02/17/22 [Duoneb 0.5 mg-3 mg/3 ml Soln] traZODone HCL 200 mg PO HS 06/14/20 02/17/22 HYDROcodone/APAP 10-325MG [[place] 1 tab PO TID PRN 09/18/21 02/17/22 10-325] Methocarbamol [Robaxin-750] 750 mg PO TID PRN 09/18/21 02/17/22 Albuterol Sulfate [Proair Hfa] 1 - 2 puff INHALATION RT-Q6H PRN 02/17/22 02/17/22 Cariprazine HCl [Vraylar] 3 mg PO HS 02/17/22 02/17/22 Ergocalciferol [Vitamin D2 (1250 1,250 mcg PO MO 02/17/22 02/17/22 Mcg = 62863 Iu)] Fluticasone/Umeclidin/Vilanter 1 puff INHALATION RT-DAILY 02/17/22 02/17/22 [Trelegy Ellipta 100-62.5-25] Previous Rx's Medication Instructions Recorded Gabapentin [Neurontin] 300 mg PO BID #6 cap 09/21/21 Allergies Allergy/AdvReac Type Severity Reaction Status Date / Time amitriptyline [From Elavil] Allergy Unknown Verified 02/17/22 20:01 pregabalin [From Lyrica] Allergy Unknown Verified 02/17/22 20:01 When seen today patient was pleasant and cooperative Patient admits that she has a history of depression from early adolescence and that she has been treated by her primary care physician all these years She states that the medications have been prescribed by him all along and that she takes and religiously She denies that she has ever been hospitalized on the psychiatry unit or has needed any counselors She denies any history of any suicidal ideations or plans She feels that her psychotropic medication seems to be working fine She states that she realizes that she came here for an anxiety episode but that she does have upper history tract infection She admits that she still smokes about a pack a day and is working on trying to quit smoking She denies that she currently needs any other psychiatric help Mental status examination: Reveals a middle-aged female who looks somewhat older for age Patient is alert and oriented to time place and person Speech was clear coherent and relevant Thought processes are goal-directed sequential and logical There is no evidence of any overt psychosis Patient denies any depression or anxiety Patient denies any auditory or visual hallucinations Patient's formal and operational judgment appears to be fair Insight into her problem appears to be fair Cognitively she appears to be intact Diagnostic impression: Adjustment disorder unspecified Depressive disorder in remission Plan: The patient at this time appears to be psychiatrically stable and does not appear to be in any acute distress Patient is advised to continue her home medications as prescribed and to continue her follow-up care with her physician Thank you very much for your kind referral and please feel free to contact me for any further questions Rene German M.D. 02/18/2022
--- NOTE | 2022-02-18 10:57 | P.HPIM ---
History of Present Illness This is a pleasant 51 female with past medical history of Asthma, COPD, GERD, Hypertension, ,Brain aneurysm with repair, neuropathy R entire side and L lower extremity, home O2 at 2L/NC ATC mostly, bronchitis, chronic lower back/cervical pain, Current every day smoker. Patient presents because of shortness of breath and dyspnea over 2 days duration., As per report. EMS her oxygen dropped and low 80s on 2 L oxygen for home oxygen. Also she has been complaining of from significant coughing and phlegm. But she denies any chest pain. No abdominal pain. No change in the urine or bowel habits. No fever. She smokes 1 pack per day, no alcohol or illicit drugs Patient is afebrile, she is saturating mid 90s on 3 L oxygen. Chest method tachypneic 20-22 Labs show leukocytosis 24.6. Trace of CBC, BMP and liver enzymes are unremarkable. Sodium 131, glucose slightly elevated 166,. Liver enzymes not elevated. Troponin is negative. ProBNP 140. Influenza A RNA is detected while the type B and coronavirus are undetected EKG showing sinus tachycardia at 121, no significant ST-T changes Chest x-ray shows COPD. No acute lung disease. Normal heart. No change In the emergency room patient was started on solid withdrawal 60 mg in Tamiflu MAPS was checked she is on [place] 10-325 mg, and gabapentin 300 mg Review of Systems Review of systems CONSTITUTIONAL: No fever, no malaise, no fatigue. HEENT: No recent visual problems or hearing problems. Denied any sore throat. CARDIOVASCULAR: No orthopnea, PND, no palpitations, no syncope. PULMONARY: No chest wall tenderness cough, no hemoptysis. GASTROINTESTINAL: No diarrhea, no nausea, no vomiting, no abdominal pain. Normoactive bowel sounds. NEUROLOGICAL: No headaches, no weakness, no numbness. HEMATOLOGICAL: Denies any bleeding or petechiae. GENITOURINARY: Denies any burning micturition, frequency, or urgency. MUSCULOSKELETAL/RHEUMATOLOGICAL: Denies any joint pain, swelling, or any muscle pain. ENDOCRINE: Denies any polyuria or polydipsia. Past Medical History Past Medical History: Asthma, Cancer, COPD, GERD/Reflux, Hypertension, Pneumonia, Pulmonary Embolus (PE), Respiratory Disorder, Vascular Disorder Additional Past Medical History / Comment(s): Brain aneurysm with repair, neuropathy R entire side and L lower extremity, home O2 at 2L/NC ATC mostly, bronchitis, pt cannot recall PEs laterallity, chronic lower back/cervical pain, sinus problems, HPV History of Any Multi-Drug Resistant Organisms: None Reported Past Surgical History: Adenoidectomy, Section, Cholecystectomy, Hysterectomy, Tonsillectomy Additional Past Surgical History / Comment(s): D&C, lower back pain clinic procedure/ablation, several mini laparoscopies d/t abnormal vaginal bleeding, brain aneurysm repair, septoplasty/facial cyst excision, dental extractions, bilateral breast implants Past Anesthesia/Blood Transfusion Reactions: No Reported Reaction Additional Past Anesthesia/Blood Transfusion Reaction / Comment(s): Pt received blood in past without reaction. Past Psychological History: Depression Additional Psychological History / Comment(s): Pt resides with her spouse/child. She has home oxygen/nebulizer. She drives. Smoking Status: Current every day smoker Past Alcohol Use History: Rare Additional Past Alcohol Use History / Comment(s): Pt started smoking in 1983 and is a ppd smoker. Past Drug Use History: Marijuana Additional Drug Use History / Comment(s): Marijuana in the past. - Past Family History Mother Family Medical History: Cancer Additional Family Medical History / Comment(s): Uterine cancer Father Family Medical History: Respiratory Disorder Additional Family Medical History / Comment(s): Father from pulmonary fibrosis. Medications and Allergies Home Medications Medication Instructions Recorded Confirmed Type Desvenlafaxine Succinate [Pristiq 50 mg PO HS 11/30/19 02/17/22 History ER] Desvenlafaxine [Pristiq ER] 100 mg PO HS 11/30/19 02/17/22 History Primidone [Mysoline] 100 mg PO HS 11/30/19 02/17/22 History Ipratropium-Albuterol Nebulize 3 ml INHALATION RT-QID 06/14/20 02/17/22 History [Duoneb 0.5 mg-3 mg/3 ml Soln] traZODone HCL 200 mg PO HS 06/14/20 02/17/22 History HYDROcodone/APAP 10-325MG [[place] 1 tab PO TID PRN 09/18/21 02/17/22 History 10-325] Methocarbamol [Robaxin-750] 750 mg PO TID PRN 09/18/21 02/17/22 History Gabapentin [Neurontin] 300 mg PO BID #6 cap 12/16/21 05/14/22 Rx Albuterol Sulfate [Proair Hfa] 1 - 2 puff INHALATION RT-Q6H PRN 02/17/22 02/17/22 History Cariprazine HCl [Vraylar] 3 mg PO HS 02/17/22 02/17/22 History Ergocalciferol [Vitamin D2 (1250 1,250 mcg PO MO 02/17/22 02/17/22 History Mcg = 32881 Iu)] Fluticasone/Umeclidin/Vilanter 1 puff INHALATION RT-DAILY 02/17/22 02/17/22 History [Trelejuanita Ellipta 100-62.5-25] Allergies Allergy/AdvReac Type Severity Reaction Status Date / Time amitriptyline [From Elavil] Allergy Unknown Verified 02/17/22 20:01 pregabalin [From Lyrica] Allergy Unknown Verified 02/17/22 20:01 Physical Exam Vitals: Vital Signs Temp Pulse Pulse Resp BP BP Pulse Ox 02/18/22 08:28 102 H 02/18/22 08:15 102 H 98 02/18/22 08:00 98.1 F 77 110/76 97 02/18/22 03:11 75 16 02/18/22 02:15 97.5 F L 75 16 100/65 98 02/17/22 23:29 98.3 F 85 17 106/78 95 02/17/22 21:59 97 F L 102 H 22 113/95 98 02/17/22 19:15 122 H 24 99/80 98 02/17/22 18:50 30 H 02/17/22 18:34 135 H 24 02/17/22 18:23 134 H 25 H 02/17/22 18:13 99.5 F 136 H 32 H 132/96 100 Intake and Output 02/17/22 02/18/22 02/18/22 22:59 06:59 14:59 Other: Voiding Method Bedside Commode Bedpan # Voids 2 Weight 52.617 kg GENERAL: The patient is alert and oriented x3, not in any acute distress. Well developed, well nourished. HEENT: Pupils are round and equally reacting to light. EOMI. No scleral icterus. No conjunctival pallor. Normocephalic, atraumatic. No pharyngeal erythema. No thyromegaly. CARDIOVASCULAR: S1 and S2 present. No murmurs, rubs, or gallops. -PULMONARY: Chest is clear to auscultation, scattered bilateral wheezing ABDOMEN: Soft, nontender, nondistended, normoactive bowel sounds. No palpable organomegaly. MUSCULOSKELETAL: No joint swelling or deformity. EXTREMITIES: No cyanosis, clubbing, or pedal edema. NEUROLOGICAL: Gross neurological examination did not reveal any focal deficits. SKIN: No rashes. no petechiae. Results CBC & Chem 7: 02/18/22 04:17 02/18/22 04:17 Labs: Abnormal Lab Results - Last 24 Hours (Table) 02/17/22 02/17/22 02/17/22 Range/Units 18:28 18:28 18:28 WBC 22.6 H (3.8-10.6) k/uL Hct 47.0 H (34.0-46.0) % MCV (80.0-97.0) fL MCHC (32.0-37.0) g/dL Neutrophils # 20.5 H (1.3-7.7) k/uL Lymphocytes # 0.9 L (1.0-4.8) k/uL Sodium 131 L (137-145) mmol/L Chloride 96 L (98-107) mmol/L Glucose 166 H (74-99) mg/dL Magnesium (1.5-2.4) mg/dL Influenza Type A RNA Detected H (Not Detectd) 02/18/22 02/18/22 Range/Units 04:17 04:17 WBC (3.8-10.6) k/uL Hct 47.4 H (34.0-46.0) % MCV 97.9 H (80.0-97.0) fL MCHC 31.4 L (32.0-37.0) g/dL Neutrophils # (1.3-7.7) k/uL Lymphocytes # (1.0-4.8) k/uL Sodium 134 L (137-145) mmol/L Chloride 95 L (98-107) mmol/L Glucose 137 H (74-99) mg/dL Magnesium 2.5 H (1.5-2.4) mg/dL Influenza Type A RNA (Not Detectd) Thrombosis Risk Factor Assmnt - Choose All That Apply Each Factor Represents 1 point: Abnormal pulmonary function (COPD), Age 41-60 years Each Risk Factor Represents 3 Points: History of DVT/PE Other congenital or acquired thrombophilia - If yes, enter type in comment: No Thrombosis Risk Factor Assessment Total Risk Factor Score: 5 Thrombosis Risk Factor Assessment Level: High Risk Assessment and Plan Assessment: Acute influenza A Acute COPD exacerbation Nicotine dependence Hypertension Schizophrenia and depression History of GERD Chronic hypoxic respiratory failure Plan: This is a pleasant 51 female who presents with influenza A and COPD exacerbation Continue with Tamiflu Continue with steroids and bronchodilators Pulmonary consult Consult psych team Labs and medication were reviewed.. Continue same treatment. Continue with symptomatic treatment. Resume home medication. Monitor lytes and vitals. DVT and GI prophylaxis. Further recommendationsas per clinical course of the patient DVT prophylaxis: Subcutaneous heparin GI Prophylaxis: Pepcid Prognosis is guarded
[2022-02-18 11:06] LABS: Basophils # (A) 0.01 X 10*3/uL (0.00-0.10); Basophils % (A) 0.1 %; Eosinophils # (A) 0 X 10*3/uL (0.04-0.35); Eosinophils % (A) 0 %; Lymphocytes # (A) 0.51 X 10*3/uL (0.90-5.00); Lymphocytes % (A) 5.2 %; Monocytes # (A) 0.12 X 10*3/uL (0.20-1.00); Monocytes % (A) 1.2 %; Neutrophils # (A) 9.05 X 10*3/uL (1.80-7.70); Neutrophils % (A) 92.5 %; RBC Morphology NORMAL
[2022-02-18] MEDS: INSULIN ASPART (NovoLOG) 100 UNIT/ML VIAL SQ SCH ×3 (12:34→22:18)
--- NOTE | 2022-02-18 12:53 | P.CNPUL ---
History of Present Illness Consult date: 02/18/22 Requesting physician: Taye E Joshua Reason for consult: dyspnea Chief complaint: Shortness of breath History of present illness: 51-year-old female patient with known history of COPD, on home oxygen at 2 L/m, with baseline FEV1 of 0.84 L or 29% of predicted, stage IV COPD, history of tobacco dependence, prior history of right upper lobe pulmonary embolism on Eliquis, chronic back and neck pain, hypertension, previous episodes of pneumonia, and anxiety. Patient came into the emergency department on 02/17/2022 for evaluation of shortness of breath which has been progressive for a period of one week, with worsening hypoxia, and patient was having low O2 saturations as low as 70s and 80 percent on 4 L of oxygen. She was brought in by EMS, she was placed on BiPAP support for severe respiratory distress. She had a low-grade fever on presentation with a temp of 99.5 axillary. Chest x- ray showed COPD, without evidence of acute lung disease. Patient tested negative for COVID-19, however tested positive for influenza A, and negative for influenza B. White blood cell count was 22.6, hemoglobin was 15.2, d-dimer was 0.53, correlation profile was unremarkable, sodium was 131, potassium is 4.4, chloride is 96, CO2 is 26, BUN is 9, creatinine 0.74, LFTs were within normal limits, proBNP was 140, troponin was negative at 0.029. Pro-calcitonin level came back elevated at 0.34 with a normal renal function. Patient was started on IV steroids with Solu-Medrol 60 mg every 6 hours, she was started on Tamiflu, and nebulized bronchodilators. Review of Systems All systems: negative Constitutional: Reports fever, Denies chills Eyes: denies blurred vision, denies pain Ears, nose, mouth and throat: Denies headache, Denies sore throat Cardiovascular: Denies chest pain, Denies shortness of breath Respiratory: Reports cough, Reports dyspnea Gastrointestinal: Denies abdominal pain, Denies diarrhea, Denies nausea, Denies vomiting Genitourinary: Denies dysuria, Denies hematuria Musculoskeletal: Denies myalgias Integumentary: Denies pruritus, Denies rash Neurological: Denies numbness, Denies weakness Psychiatric: Denies anxiety, Denies depression Endocrine: Denies fatigue, Denies weight change Past Medical History Past Medical History: Asthma, Cancer, COPD, GERD/Reflux, Hypertension, Pneumonia, Pulmonary Embolus (PE), Respiratory Disorder, Vascular Disorder Additional Past Medical History / Comment(s): Brain aneurysm with repair, neuropathy R entire side and L lower extremity, home O2 at 2L/NC ATC mostly, bronchitis, pt cannot recall PEs laterallity, chronic lower back/cervical pain, sinus problems, HPV History of Any Multi-Drug Resistant Organisms: None Reported Past Surgical History: Adenoidectomy, Section, Cholecystectomy, Hysterectomy, Tonsillectomy Additional Past Surgical History / Comment(s): D&C, lower back pain clinic procedure/ablation, several mini laparoscopies d/t abnormal vaginal bleeding, brain aneurysm repair, septoplasty/facial cyst excision, dental extractions, bilateral breast implants Past Anesthesia/Blood Transfusion Reactions: No Reported Reaction Additional Past Anesthesia/Blood Transfusion Reaction / Comment(s): Pt received blood in past without reaction. Past Psychological History: Depression Additional Psychological History / Comment(s): Pt resides with her spouse/child. She has home oxygen/nebulizer. She drives. Smoking Status: Current every day smoker Past Alcohol Use History: Rare Additional Past Alcohol Use History / Comment(s): Pt started smoking in 1983 and is a ppd smoker. Past Drug Use History: Marijuana Additional Drug Use History / Comment(s): Marijuana in the past. - Past Family History Mother Family Medical History: Cancer Additional Family Medical History / Comment(s): Uterine cancer Father Family Medical History: Respiratory Disorder Additional Family Medical History / Comment(s): Father from pulmonary fibrosis. Medications and Allergies Home Medications Medication Instructions Recorded Confirmed Type Desvenlafaxine Succinate [Pristiq 50 mg PO HS 11/30/19 02/17/22 History ER] Desvenlafaxine [Pristiq ER] 100 mg PO HS 11/30/19 02/17/22 History Primidone [Mysoline] 100 mg PO HS 11/30/19 02/17/22 History Ipratropium-Albuterol Nebulize 3 ml INHALATION RT-QID 06/14/20 02/17/22 History [Duoneb 0.5 mg-3 mg/3 ml Soln] traZODone HCL 200 mg PO HS 06/14/20 02/17/22 History HYDROcodone/APAP 10-325MG [[place] 1 tab PO TID PRN 09/18/21 02/17/22 History 10-325] Methocarbamol [Robaxin-750] 750 mg PO TID PRN 09/18/21 02/17/22 History Gabapentin [Neurontin] 300 mg PO BID #6 cap 09/21/21 02/17/22 Rx Albuterol Sulfate [Proair Hfa] 1 - 2 puff INHALATION RT-Q6H PRN 02/17/2202/04 History Cariprazine HCl [Vraylar] 3 mg PO HS 02/17/22 02/17/22 History Ergocalciferol [Vitamin D2 (1250 1,250 mcg PO MO 02/17/22 02/17/22 History Mcg = 26956 Iu)] Fluticasone/Umeclidin/Vilanter 1 puff INHALATION RT-DAILY 02/17/22 02/17/22 History [Trelegy Ellipta 100-62.5-25] Allergies Allergy/AdvReac Type Severity Reaction Status Date / Time amitriptyline [From Elavil] Allergy Unknown Verified 02/17/22 20:01 pregabalin [From Lyrica] Allergy Unknown Verified 02/17/22 20:01 Physical Exam Vitals: Vital Signs Temp Pulse Pulse Resp BP BP Pulse Ox 02/18/22 08:28 102 H 02/18/22 08:15 102 H 98 02/18/22 08:00 98.1 F 77 110/76 97 02/18/22 03:11 75 16 02/18/22 02:15 97.5 F L 75 16 100/65 98 02/17/22 23:29 98.3 F 85 17 106/78 95 02/17/22 21:59 97 F L 102 H 22 113/95 98 02/17/22 19:15 122 H 24 99/80 98 02/17/22 18:50 30 H 02/17/22 18:34 135 H 24 02/17/22 18:23 134 H 25 H 02/17/22 18:13 99.5 F 136 H 32 H 132/96 100 Intake and Output 02/17/22 02/18/22 02/18/22 22:59 06:59 14:59 Other: Voiding Method Bedside Commode Bedside Commode Bedpan Bedpan # Voids 2 Weight 52.617 kg GENERAL EXAM: Alert, very pleasant, 51-year-old white female, on 3 L of oxygen pulse ox is 98% comfortable in no apparent distress. HEAD: Normocephalic/atraumatic. EYES: Normal reaction of pupils, equal size. Conjunctiva pink, sclera white. NOSE: Clear with pink turbinates. THROAT: No erythema or exudates. NECK: No masses, no JVD, no thyroid enlargement, no adenopathy. CHEST: No chest wall deformity. Symmetrical expansion. LUNGS: Equal air entry with few scattered rhonchi, diminished breath sounds CVS: Regular rate and rhythm, normal S1 and S2, no gallops, no murmurs, no rubs ABDOMEN: Soft, nontender. No hepatosplenomegaly, normal bowel sounds, no guarding or rigidity. EXTREMITIES: No clubbing, no edema, no cyanosis, 2+ pulses and upper and lower extremities. MUSCULOSKELETAL: Muscle strength and tone normal. SPINE: No scoliosis or deformity SKIN: No rashes CENTRAL NERVOUS SYSTEM: Alert and oriented -3. No focal deficits, tone is normal in all 4 extremities. PSYCHIATRIC: Alert and oriented -3. Appropriate affect. Intact judgment and insight. Results - Laboratory Findings CBC and BMP: 02/18/22 04:17 02/18/22 04:17 PT/INR, D-dimer PT 10.0 sec (9.0-12.0) 02/17/22 18:28 INR 0.9 (<1.2) 02/17/22 18:28 D-Dimer 0.53 mg/L FEU (<0.60) 02/17/22 18:28 Abnormal lab findings: Abnormal Labs 02/17/22 02/17/22 02/17/22 18:28 18:28 18:28 WBC 22.6 H Hct 47.0 H MCV MCHC Immature Gran # Neutrophils # 20.5 H Lymphocytes # 0.9 L Monocytes # Eosinophils # Sodium 131 L Chloride 96 L Glucose 166 H Magnesium Procalcitonin Influenza Type A RNA Detected H 02/18/22 02/18/22 02/18/22 04:17 04:17 04:17 WBC Hct 47.4 H MCV 97.9 H MCHC 31.4 L Immature Gran # 0.10 H Neutrophils # 9.05 H Lymphocytes # 0.51 L Monocytes # 0.12 L Eosinophils # 0 L Sodium 134 L Chloride 95 L Glucose 137 H Magnesium 2.5 H Procalcitonin 0.34 H Influenza Type A RNA - Diagnostic Findings Chest x-ray: report reviewed, image reviewed Assessment and Plan Plan: Assessment: #1. Acute influenza A infection. Patient tested negative for influenza B, COVID-19 was negative #2. Acute exacerbation of COPD related to the above #3. Advanced COPD, stage IV, with baseline FEV1 of 0.84 L or 29% of predicted #4. Acute on chronic hypoxic respiratory failure related to the above, normally wears 2 L of oxygen on a regular basis #5. Chronic and ongoing history of smoking #6. History of PE on [place] #7. Chronic back and neck pain #8. Anxiety #9. Previous episode of pneumonia #10. Depression #11. Hypertension #12. History of neuropathy Plan: Continue Tamiflu Continue IV steroids We will add doxycycline 100 mg twice daily for empiric antibiotic coverage We'll send a sputum specimen Continue nebulized bronchodilators We'll continue to follow patient's clinical course I have personally seen and examined the patient, performed the documentation and the assessment and plan as written. Number of minutes spent on the visit: [15] Time with Patient: Greater than 30
[2022-02-18] MEDS: DOXYCYCLINE 100 MG CAP PO SCH ×2 (17:21→22:04)
[2022-02-18] MEDS ORDERED: NON FORMULARY DRUG (Cariprazine Hcl [Vraylar] 3 MG Capsule) PO SCH (21:00)
[2022-02-18] MEDS ORDERED: NON FORMULARY DRUG (Desvenlafaxine [Pristiq Er] 100 MG Tab.Er.24h) PO SCH (21:00)
[2022-02-18] MEDS ORDERED: DESVENLAFAXINE SUCCINATE 50 MG TAB.ER.24H PO SCH (21:00)
[2022-02-18] MEDS ORDERED: PRIMIDONE 50 MG TAB PO SCH (21:00)
[2022-02-18] MEDS ORDERED: traZODone HCL 100 MG TAB PO SCH (21:00)
[2022-02-18] MEDS: HEPARIN SODIUM,PORCINE/PF 5,000 UNIT/0.5 ML SYRINGE SQ SCH (22:01)
[2022-02-18] MEDS: FAMOTIDINE 20 MG/2 ML VIAL IV SCH (22:04)
[2022-02-18 22:16] LABS: Glucose,Whole Blood 138 mg/dL (75-99)
[2022-02-18] MEDS ORDERED: NICOTINE 14MG/24HR PATCH TRANSDERM SCH (23:43)
[2022-02-19] MEDS: HYDROcodone/APAP 10-325MG 1 EACH TAB PO PRN ×3 (00:29→15:48)
[2022-02-19] MEDS: methylPREDNISolone SOD SUCCI 125 MG/2 ML VIAL IV SCH ×3 (00:30→11:12)
[2022-02-19] MEDS: OSELTAMIVIR 75 MG CAP PO SCH ×2 (00:31→07:38)
[2022-02-19] MEDS: IPRATROPIUM 0.5 MG/2.5 ML NEBU INHALATION SCH ×2 (04:26→04:27)
[2022-02-19] MEDS: SODIUM CHLORIDE 0.9% 1,000 ML IV SCH ×2 (05:30→13:28)
[2022-02-19 07:25] LABS: Glucose,Whole Blood 131 mg/dL (75-99)
[2022-02-19] MEDS: INSULIN ASPART (NovoLOG) 100 UNIT/ML VIAL SQ SCH ×2 (07:34→13:28)
[2022-02-19] MEDS: FAMOTIDINE 20 MG/2 ML VIAL IV SCH (07:37)
[2022-02-19] MEDS: GABAPENTIN 300 MG CAP PO SCH (07:37)
[2022-02-19] MEDS: DOXYCYCLINE 100 MG CAP PO SCH (07:38)
[2022-02-19] MEDS: HEPARIN SODIUM,PORCINE/PF 5,000 UNIT/0.5 ML SYRINGE SQ SCH (07:38)
[2022-02-19 07:45] VITALS: RESP 16
[2022-02-19] MEDS: IPRATROPIUM-ALBUTEROL 3 ML NEB INHALATION PRN ×2 (08:08→15:59)
[2022-02-19] MEDS ORDERED: NICOTINE 14MG/24HR PATCH TRANSDERM SCH ×2 (09:00→23:00)
[2022-02-19] MEDS ORDERED: ERGOCALCIFEROL 1,250 MCG (50,000 IU) CAPSULE PO SCH (09:00)
[2022-02-19 11:18] LABS: African American GFR (CKD) >90 (>60 ml/min/1.73 sqM); Anion Gap 4 mmol/L; Blood Urea Nitrogen 20 mg/dL (7-17); Calcium 8.8 mg/dL (8.4-10.2); Carbon Dioxide 25 mmol/L (22-30); Chloride 105 mmol/L (98-107); Glucose 157 mg/dL (74-99); Non-African American GFR(CKD) 89 (>60 ml/min/1.73 sqM); Potassium 4.7 mmol/L (3.5-5.1); Sodium 134 mmol/L (137-145)
[2022-02-19 11:46] LABS: Glucose,Whole Blood 138 mg/dL (75-99)
[2022-02-19 15:51] VITALS: BP 115/75; TEMP 98.9
--- NOTE | 2022-02-19 15:54 | P.PN ---
Subjective Progress Note Date: 02/19/22 Principal diagnosis: Shortness of breath 51-year-old female patient with known history of COPD, on home oxygen at 2 L/m, with baseline FEV1 of 0.84 L or 29% of predicted, stage IV COPD, history of tobacco dependence, prior history of right upper lobe pulmonary embolism on Eliquis, chronic back and neck pain, hypertension, previous episodes of pneumonia, and anxiety. Patient came into the emergency department on 02/17/2022 for evaluation of shortness of breath which has been progressive for a period of one week, with worsening hypoxia, and patient was having low O2 saturations as low as 70s and 80 percent on 4 L of oxygen. She was brought in by EMS, she was placed on BiPAP support for severe respiratory distress. She had a low-grade fever on presentation with a temp of 99.5 axillary. Chest x- ray showed COPD, without evidence of acute lung disease. Patient tested negative for COVID-19, however tested positive for influenza A, and negative for influenza B. White blood cell count was 22.6, hemoglobin was 15.2, d-dimer was 0.53, correlation profile was unremarkable, sodium was 131, potassium is 4.4, chloride is 96, CO2 is 26, BUN is 9, creatinine 0.74, LFTs were within normal limits, proBNP was 140, troponin was negative at 0.029. Pro-calcitonin level came back elevated at 0.34 with a normal renal function. Patient was started on IV steroids with Solu-Medrol 60 mg every 6 hours, she was started on Tamiflu, and nebulized bronchodilators. On 02/19/2022 patient seen in follow-up on medical surgical floor, she states she is feeling better, breathing easier, she remains on 3 L of oxygen pulse ox is 98%, less dyspneic, less bronchospastic, no fever or chills, a lot of sensitivity stable. She's had no acute events overnight. Patient remains on nebulized bronchodilators, she is on day 2 of Tamiflu treatment, she is on doxycycline for empiric antibiotic coverage. Blood cultures were negative, sputum culture has been sent showing moderate gram-positive cocci, many gram- positive bacilli, many PMNs, final culture is pending. Pro-calcitonin level came back at 0.34, moderately elevated, chest x-ray showed no acute lung disease. Objective - Vital Signs Vital signs: Vital Signs Temp 98.0 F 02/19/22 07:39 Pulse 92 02/19/22 08:18 Resp 16 02/19/22 07:39 BP 112/81 02/19/22 07:39 Pulse Ox 98 02/19/22 07:39 Intake & Output 02/18/22 02/19/22 02/19/22 18:59 06:59 18:59 Intake Total 200 Balance 200 Intake: Oral 200 Other: Voiding Method Bedside Commode Bedside Commode Bedside Commode Bedpan Bedpan # Voids 2 - Exam GENERAL EXAM: Alert, very pleasant, 51-year-old white female, on 3 L of oxygen pulse ox is 98% comfortable in no apparent distress. HEAD: Normocephalic/atraumatic. EYES: Normal reaction of pupils, equal size. Conjunctiva pink, sclera white. NOSE: Clear with pink turbinates. THROAT: No erythema or exudates. NECK: No masses, no JVD, no thyroid enlargement, no adenopathy. CHEST: No chest wall deformity. Symmetrical expansion. LUNGS: Equal air entry with few scattered rhonchi, diminished breath sounds CVS: Regular rate and rhythm, normal S1 and S2, no gallops, no murmurs, no rubs ABDOMEN: Soft, nontender. No hepatosplenomegaly, normal bowel sounds, no guard ing or rigidity. EXTREMITIES: No clubbing, no edema, no cyanosis, 2+ pulses and upper and lower extremities. MUSCULOSKELETAL: Muscle strength and tone normal. SPINE: No scoliosis or deformity SKIN: No rashes CENTRAL NERVOUS SYSTEM: Alert and oriented -3. No focal deficits, tone is normal in all 4 extremities. PSYCHIATRIC: Alert and oriented -3. Appropriate affect. Intact judgment and insight. - Labs CBC & Chem 7: 02/18/22 04:17 02/19/22 10:43 Labs: Abnormal Lab Results - Last 24 Hours (Table) 02/18/22 02/19/22 02/19/22 Range/Units 22:14 07:17 10:43 Sodium 134 L (137-145) mmol/L BUN 20 H (7-17) mg/dL Glucose 157 H (74-99) mg/dL POC Glucose (mg/dL) 138 H 131 H (75-99) mg/dL 02/19/22 Range/Units 11:37 Sodium (137-145) mmol/L BUN (7-17) mg/dL Glucose (74-99) mg/dL POC Glucose (mg/dL) 138 H (75-99) mg/dL Microbiology - Last 24 Hours (Table) 02/19/22 08:15 Gram Stain - Preliminary Sputum Sputum Culture - Preliminary 02/17/22 18:45 Blood Culture - Preliminary Blood No Growth after 24 hours 02/17/22 18:28 Blood Culture - Preliminary Blood No Growth after 24 hours Assessment and Plan Plan: Assessment: #1. Acute influenza A infection. Patient tested negative for influenza B, COVID-19 was negative #2. Acute exacerbation of COPD related to the above #3. Advanced COPD, stage IV, with baseline FEV1 of 0.84 L or 29% of predicted #4. Acute on chronic hypoxic respiratory failure related to the above, normally wears 2 L of oxygen on a regular basis #5. Chronic and ongoing history of smoking #6. History of PE on [place] #7. Chronic back and neck pain #8. Anxiety #9. Previous episode of pneumonia #10. Depression #11. Hypertension #12. History of neuropathy Plan: Clinically patient is improving No fever or chills Increase activity as tolerated From pulmonary perspective patient could be considered for discharge home today to complete a total of 5 days of Tamiflu, and doxycycline 100 mg twice daily for 14 days Patient can resume her nebulized DuoNeb She can resume her Trelegy Ellipta Outpatient follow-up with Dr. Walton in the office in 7-10 days I have personally seen and examined the patient, performed the documentation and the assessment and plan as written. Number of minutes spent on the visit: [15] Time with Patient: Less than 30
[2022-02-19 16:11] VITALS: PULSE 82
[2022-02-19] MEDS ORDERED: FAMOTIDINE 20 MG TAB PO SCH (21:00)
[2022-02-20] MEDS ORDERED: predniSONE 20 MG TAB PO SCH (09:00)
--- NOTE | 2022-02-21 16:52 | P.DS ---
Providers Date of admission: 02/17/22 21:34 Attending physician: Taye Lewis MD Consults: 02/17/22 21:31 Consult Physician Routine Consulting Provider: Edward Walton Consult Reason/Comments: COPD, influenza type A Do you want consulting provider notified?: Yes 02/18/22 01:02 Consult Physician Routine Consulting Provider: Juan Daniel Consult Reason/Comments: Schizophrenia, depression, on multiple medications Do you want consulting provider notified?: Yes, Notify in am Primary care physician: JAMES Resendez Hospital Course: Final Diagnosis Acute influenza A Acute COPD exacerbation Nicotine dependence Hypertension Schizophrenia and depression History of GERD Chronic hypoxic respiratory failure Discharge Disposition Patient is stable for discharge home. She will complete a course of tamiflu, oral steroid taper. Continue with home nebulizer treatment. Patient will also finish a course of oral doxycycline. Follow up in the primary care office with ALLAN MirandaC, and Dr Walton. Hospital Course This is a pleasant 51-year-old female who presents to the hospital with complaints of shortness of breath and dyspnea over the last 2 days. As per report EMS had found her oxygen to be in the low 80s on 2 L nasal cannula which is her home oxygen dose. She is also complaining of cough and phlegm. Patient is a past history significant for asthma, COPD, GERD, hypertension, brain aneurysm with repair, neuropathy right entire side and left lower extremity. There is also history of chronic back pain/cervical pain, bronchitis, home O2 at 2 L nasal cannula. Patient misses smoking one pack of cigarettes per day, denies alcohol, denies illicit drug use. She denies chest pain, no abdominal pain, denies dysuria. She denied fever and chills. Upon admission the patient was saturating mid 90s on 3 L of nasal cannula, she was slightly tachypneic. Initial diagnostics include leukocytosis of 24.6, CBC, BMP liver enzymes are unremarkable. Sodium 131, glucose elevated at 166. Liver enzymes unremarkable, troponin is negative, proBNP 140 [place] virus is negative, influenza B is negative Influenza A RNA is positive EKG on admission showing sinus tachycardia at [address] or T-wave changes. Chest x-ray shows COPD with no acute lung disease. Patient was admitted to the hospitalist consult placed to pulmonary services and was started on Tamiflu and IV Solu-Medrol. Patient was also evaluated by psychiatric services for history of depression. Determined to be psychiatrically stable, and will continue with prescribed home medications. Patient was evaluated in consult by pulmonary services who recommended continuing Tamiflu, oral prednisone taper and nicotine patch on discharge. They will follow-up with patient in the office next week. 02/19/2022 Patient evaluated today sitting up in bed. She is alert and appropriate, does not appear to be in acute distress. She was to be discharged home. She is currently maintaining oxygen saturation at 90% on her 3 L nasal cannula. She is afebrile, heart rate 83, blood pressure 115/75. She is transitioned to oral steroid taper. She denies cough. Labs today show sodium 134 which is stable, potassium 4.7, BUN 20, creatinine 0.78, calcium 8.8. Procalcitonin level was found to be 0.34. Blood glucose in the 130s consistently. She is denying chest pain, shortness of breath, abdominal pain, nausea, vomiting, or diarrhea. Lungs are clear, s1, s2 auscultated, abdomen is soft and non tender. Focal neurological exam is negative. Repeat labs in 2-3 days outpatient to follow up on sodium level. Please see medication reconciliation for a list of current medication. Thank you for allowing us to participate in the care of this patient. The impression and plan of care has been dictated by Jacy Sanon, Nurse Practitioner as directed. Dr. Fred MD I have performed a history and physical examination and medical decision making of this patient, discussed the same with the dictator, and agree with the dictators assessment and plan as written, documented as a scribe. Based on total visit time, I have performed more than 50% of this visit. Patient Condition at Discharge: Stable Plan - Discharge Summary Discharge Rx Participant: Yes New Discharge Prescriptions: New Oseltamivir Phosphate 75 mg PO BID 7 Days #14 capsule Famotidine [Pepcid] 20 mg PO BID 30 Days #60 tab Nicotine 14Mg/24Hr Patch [Habitrol] 1 patch TRANSDERM 2300 7 Days #7 patch predniSONE 0 mg PO DIRECTED 9 Days #21 tab Doxycycline [Vibramycin] 100 mg PO BID 14 Days #28 cap Continue Primidone [Mysoline] 100 mg PO HS Desvenlafaxine [Pristiq ER] 100 mg PO HS Desvenlafaxine Succinate [Pristiq ER] 50 mg PO HS Ipratropium-Albuterol Nebulize [Duoneb 0.5 mg-3 mg/3 ml Soln] 3 ml INHALATION RT-QID traZODone HCL 200 mg PO HS Methocarbamol [Robaxin-750] 750 mg PO TID PRN PRN Reason: Muscle Spasm Gabapentin [Neurontin] 300 mg PO BID #6 cap Fluticasone/Umeclidin/Vilanter [Trelegy Ellipta 100-62.5-25] 1 puff INHALATION RT-DAILY HYDROcodone/APAP 10-325MG [[place] 10-325] 1 tab PO TID PRN PRN Reason: Pain Ergocalciferol [Vitamin D2 (1250 Mcg = 50649 Iu)] 1,250 mcg PO MO Albuterol Sulfate [Proair Hfa] 1 - 2 puff INHALATION RT-Q6H PRN PRN Reason: Shortness Of Breath Cariprazine HCl [Vraylar] 3 mg PO HS Discharge Medication List Desvenlafaxine Succinate [Pristiq ER] 50 mg PO HS 11/30/19 [History] Desvenlafaxine [Pristiq ER] 100 mg PO HS 11/30/19 [History] Primidone [Mysoline] 100 mg PO HS 11/30/19 [History] Ipratropium-Albuterol Nebulize [Duoneb 0.5 mg-3 mg/3 ml Soln] 3 ml INHALATION RT-QID 06/14/20 [History] traZODone HCL 200 mg PO HS 06/14/20 [History] HYDROcodone/APAP 10-325MG [[place] 10-325] 1 tab PO TID PRN 09/18/21 [History] Methocarbamol [Robaxin-750] 750 mg PO TID PRN 09/18/21 [History] Gabapentin [Neurontin] 300 mg PO BID #6 cap 09/21/21 [Rx] Albuterol Sulfate [Proair Hfa] 1 - 2 puff INHALATION RT-Q6H PRN 02/17/22 [History] Cariprazine HCl [Vraylar] 3 mg PO HS 02/17/22 [History] Ergocalciferol [Vitamin D2 (1250 Mcg = 31265 Iu)] 1,250 mcg PO MO 02/17/22 [History] Fluticasone/Umeclidin/Vilanter [Trelegy Ellipta 100-62.5-25] 1 puff INHALATION RT-DAILY 02/17/22 [History] Doxycycline [Vibramycin] 100 mg PO BID 14 Days #28 cap 02/19/22 [Rx] Famotidine [Pepcid] 20 mg PO BID 30 Days #60 tab 02/19/22 [Rx] Nicotine 14Mg/24Hr Patch [Habitrol] 1 patch TRANSDERM 2300 7 Days #7 patch 02/19/22 [Rx] Oseltamivir Phosphate 75 mg PO BID 7 Days #14 capsule 02/19/22 [Rx] predniSONE 0 mg PO DIRECTED 9 Days #21 tab 02/19/22 [Rx] Follow up Appointment(s)/Referral(s): Donna Monaco [Other] - 02/20/22 11:15 am (Please make sure you wear a face mask to your appointment. Please call the office when you arrive outside the building. 33 ) Edward Walton DO [Doctor of Osteopathic Medicine] - 03/15/22 9:45 am Ambulatory/Diagnostic Orders: Basic Metabolic Panel [LAB.AMB] Time Frame: 2 Days, Location: None Selected Patient Instructions/Handouts: Influenza (DC), COPD (Chronic Obstructive Pulmonary Disease) (DC) Activity/Diet/Wound Care/Special Instructions: Continue with Tamiflu, Doxycycline and Steroid Taper. Pepcid prescribed to take with new medications. Increase activity as tolerated. Discharge Disposition: HOME SELF-CARE
== END 2022-02-19 16:56 | disposition home or self-care (01) ==
LOC: EC 18:11 → 4SSUR 21:34 → INTOOBSV 21:34 → UNDODISIN 02-19 16:56
PROVIDERS: ADMIT Internal Medicine; ATTEND Internal Medicine
PROC: 5A09357 Assistance with Respiratory Ventilation, Less than 24 Consecutive Hours, Continuous Positive Airway Pressure (ICD-10-PCS; principal; 2022-02-17)
DX: J10.1 Influenza due to other identified influenza virus with other respiratory manifestations (principal); J44.1 Chronic obstructive pulmonary disease with (acute) exacerbation; J96.21 Acute and chronic respiratory failure with hypoxia; F17.210 Nicotine dependence, cigarettes, uncomplicated; F43.20 Adjustment disorder, unspecified; K21.9 Gastro-esophageal reflux disease without esophagitis; I10 Essential (primary) hypertension; G62.9 Polyneuropathy, unspecified; G89.29 Other chronic pain; M54.2 Cervicalgia; M54.50 Low back pain, unspecified; F32.A Depression, unspecified; F20.9 Schizophrenia, unspecified; F41.9 Anxiety disorder, unspecified; Z99.81 Dependence on supplemental oxygen; Z79.899 Other long term (current) drug therapy; Z20.822 Contact with and (suspected) exposure to COVID-19; Z88.8 Allergy status to other drugs, medicaments and biological substances; Z87.01 Personal history of pneumonia (recurrent); Z90.49 Acquired absence of other specified parts of digestive tract; Z86.79 Personal history of other diseases of the circulatory system; Z98.891 History of uterine scar from previous surgery; Z90.710 Acquired absence of both cervix and uterus; Z98.82 Breast implant status; Z86.711 Personal history of pulmonary embolism; Z86.19 Personal history of other infectious and parasitic diseases; Z98.890 Other specified postprocedural states; Z82.5 Family history of asthma and other chronic lower respiratory diseases; Z80.49 Family history of malignant neoplasm of other genital organs
CPT/HCPCS: 96376 ×2; 96361; 96372 ×2; 96375; 96365; 96366; 99291; 36415; 94660 ×2; 94640 ×5; 93005; 85379; 83880; 80053 ×2; 80048; 83605; 83735 ×2; 84484; 85025 ×2; 85610; 85730; 87040; 87070; 87205; 87502; 84145; 87635; 71045; G0378 ×3; S4990; J2930 ×2; J3475; J1644 ×2

== ENCOUNTER 2022-03-08 08:31 | Day surgery (SDC) | payer OTHER ==
[2022-03-07 10:01] VITALS: BMI 19.9
[~2022-03-08 08:31] MED LIST: LACTATED RINGERS 1,000 ML IV SCH
[2022-03-08 09:02] VITALS: TEMP 97.8
--- NOTE | 2022-03-08 09:24 | P.GSHP ---
History of Present Illness H&P Date: 03/08/22 Chief Complaint: Family history: Cancer, screening colon Is a 51-year-old female presents today for screening colonoscopy. Patient has a family history of colon cancer. Past Medical History Past Medical History: Asthma, COPD, GERD/Reflux, Hypertension, Musculoskeletal Disorder, Osteoarthritis (OA), Pneumonia, Pulmonary Embolus (PE), Renal Disease, Respiratory Disorder Additional Past Medical History / Comment(s): Hx Brain aneurysm w/ repair, thoracic aortic aneurysm, neuropathy R entire side and LLE, home O2 at 3L/NC @ HS & prn ATC, bronchitis, pt cannot recall PEs, chronic lower back/cervical pain, sinus problems, stage 3 kidney disease History of Any Multi-Drug Resistant Organisms: None Reported Past Surgical History: Adenoidectomy, Breast Surgery, Section, Cholecystectomy, Hysterectomy, Tonsillectomy Additional Past Surgical History / Comment(s): D&C, lower back pain clinic procedure/ablation, several mini laparoscopies d/t abn vaginal bleeding, brain aneurysm repair, septoplasty/facial cyst excision, dental extractions, bilateral breast implants Past Anesthesia/Blood Transfusion Reactions: No Reported Reaction Additional Past Anesthesia/Blood Transfusion Reaction / Comment(s): Pt received blood in past without reaction. Smoking Status: Current every day smoker - Past Family History Mother Family Medical History: Cancer Additional Family Medical History / Comment(s): Colon, Uterine cancer w/ mets Father Family Medical History: COPD, Respiratory Disorder Additional Family Medical History / Comment(s): Father from pulmonary fibrosis. Medications and Allergies Home Medications Medication Instructions Recorded Confirmed Type Desvenlafaxine Succinate [Pristiq 50 mg PO HS 11/30/19 03/08/22 History ER] Desvenlafaxine [Pristiq ER] 100 mg PO HS 11/30/19 03/08/22 History Primidone [Mysoline] 100 mg PO HS 11/30/19 03/08/22 History Ipratropium-Albuterol Nebulize 3 ml INHALATION RT-QID PRN 06/14/20 03/08/22 History [Duoneb 0.5 mg-3 mg/3 ml Soln] traZODone HCL 200 mg PO HS 06/14/20 03/08/22 History HYDROcodone/APAP 10-325MG [[place] 1 tab PO TID PRN 09/18/21 03/08/22 History 10-325] Methocarbamol [Robaxin-750] 750 mg PO TID PRN 09/18/21 03/08/22 History Gabapentin [Neurontin] 300 mg PO BID #6 cap 09/21/21 03/08/22 Rx Albuterol Sulfate [Proair Hfa] 1 - 2 puff INHALATION RT-Q6H PRN 02/17/22 03/08/22 History Cariprazine HCl [Vraylar] 3 mg PO HS 02/17/22 03/08/22 History Ergocalciferol [Vitamin D2 (1250 1,250 mcg PO MO 02/17/22 03/08/22 History Mcg = 45751 Iu)] Fluticasone/Umeclidin/Vilanter 1 puff INHALATION RT-DAILY 02/17/22 03/08/22 History [Trelegy Ellipta 100-62.5-25] Famotidine [Pepcid] 20 mg PO BID 30 Days #60 tab 02/19/22 03/08/22 Rx Oxybutynin Chloride 5 mg PO BID 03/07/22 03/08/22 History Allergies Allergy/AdvReac Type Severity Reaction Status Date / Time amitriptyline [From Elavil] AdvReac loss of Verified 03/08/22 08:55 libido pregabalin [From Lyrica] AdvReac "felt Verified 03/08/22 08:55 super high" Surgical - Exam Vital Signs Temp Pulse Resp BP Pulse Ox 97.8 F 110 H 22 139/91 100 03/08/22 09:00 03/08/22 09:00 03/08/22 09:00 03/08/22 09:00 03/08/22 09:00 - General well developed, well nourished, no distress - Eyes PERRL - ENT normal pinna - Neck no masses - Respiratory normal expansion - Cardiovascular Rhythm: regular - Abdomen Abdomen: soft, non tender Assessment and Plan Assessment: Perform screening colonoscopy
[2022-03-08] MEDS ORDERED: PROPOFOL 10 MG/ML 20 ML VIAL IV ONE (09:28)
[2022-03-08] MEDS ORDERED: GLUCAGON 1 MG/ML VIAL ONE (09:28)
--- NOTE | 2022-03-08 10:10 | P.OP ---
Date of Procedure: 03/08/22 Preoperative Diagnosis: Family history: Cancer Screening colonoscopy Postoperative Diagnosis: Diverticulosis Rectal polyp Procedure(s) Performed: Colonoscopy Anesthesia: MAC Surgeon: Chris Mills Pathology: other (Rectal polyp) Condition: stable Disposition: PACU Description of Procedure: Patient's placed on the endoscopy table in the lateral position. She received IV sedation. Digital rectal exam was performed. There were some internal and external hemorrhoids. The flexible colonoscope was then placed patient anus and passed throughout the entire colon. Due to large amount liquid stool in the right colon was limited view of the mucosa. Scope withdrawn. The distal right colon mucosa seen there is no evidence of any polyps. The transverse colon appeared normal. The descending colon and sigmoid colon had some diverticulosis. Scope was brought back the rectum and on the posterior portion of the full there was a small polyp seen. Attempts were made to remove the polyp was snare however due to the positioning the polyp was impossible. Next, portion of polyp was biopsied with the cold forcep. Scope was then withdrawn. Patient tolerated procedure well.
[2022-03-08 10:14] VITALS: RESP 16
[2022-03-08 10:29] VITALS: BP 113/80; PULSE 89
== END 2022-03-08 11:15 | disposition home or self-care (01) ==
LOC: ORWHC2ENDO 08:31
PROVIDERS: ATTEND Surgery
DX: Z12.11 Encounter for screening for malignant neoplasm of colon (principal); D12.8 Benign neoplasm of rectum; K57.30 Diverticulosis of large intestine without perforation or abscess without bleeding; Z80.0 Family history of malignant neoplasm of digestive organs; K64.8 Other hemorrhoids; K64.4 Residual hemorrhoidal skin tags; J44.9 Chronic obstructive pulmonary disease, unspecified; K21.9 Gastro-esophageal reflux disease without esophagitis; I12.9 Hypertensive chronic kidney disease with stage 1 through stage 4 chronic kidney disease, or unspecified chronic kidney disease; N18.9 Chronic kidney disease, unspecified; M19.90 Unspecified osteoarthritis, unspecified site; Z86.711 Personal history of pulmonary embolism; G89.29 Other chronic pain; M54.9 Dorsalgia, unspecified; M54.2 Cervicalgia; Z97.2 Presence of dental prosthetic device (complete) (partial); G62.9 Polyneuropathy, unspecified; Z99.81 Dependence on supplemental oxygen; Z98.890 Other specified postprocedural states; F17.200 Nicotine dependence, unspecified, uncomplicated; Z80.49 Family history of malignant neoplasm of other genital organs; Z83.6 Family history of other diseases of the respiratory system; Z79.51 Long term (current) use of inhaled steroids; Z79.899 Other long term (current) drug therapy; Z88.8 Allergy status to other drugs, medicaments and biological substances
CPT/HCPCS: 88305; 45380; J1610; J2704

== ENCOUNTER → 2022-06-29 | Day surgery (SDC) | payer OTHER ==
[2022-06-28 10:44] VITALS: BMI 19.2
[~2022-06-29] MED LIST changes: +BENZOCAINE SPRAY 1 CAN MUCOUS MEM ONE; -LACTATED RINGERS 1,000 ML IV SCH; +SODIUM CHLORIDE 0.9% 500 ML 500 ML IV ONE; +fentaNYL (PF) 50 MCG/ML 2 ML AMP ONE
[2022-06-29 10:26] VITALS: TEMP 97.9
[2022-06-29] MEDS: MIDAZOLAM 2 MG/2 ML VIAL IVP ONE ×2 (11:01→11:05)
[2022-06-29] MEDS: fentaNYL (PF) 50 MCG/ML 2 ML AMP IVP ONE ×2 (11:01→11:04)
[2022-06-29 13:43] VITALS: RESP 16
[2022-06-29 13:45] VITALS: BP 94/61; PULSE 81
--- NOTE | 2022-06-30 10:23 | ECHOT ---
TRANSESOPHAGEAL ECHOCARDIOGRAM INDICATIONS: Bicuspid aortic valve. PROCEDURE NOTE: After obtaining informed consent, transesophageal echocardiogram is performed in left lateral position using an Omniplane probe. Local and IV sedation were obtained using 1.5 mg of Versed and 50 mcg of fentanyl. The patient tolerated the procedure well without any obvious immediate complications. 2D, color Doppler, and spectral analysis had been performed. FINDINGS: 1. Aortic valve is a bicuspid aortic valve with moderate restriction in leaflet mobility. It is heavily calcified, and there is a significant subvalvular calcification. The noncoronary cusp seems to prolapse. By planimetry, the valve area is 1.8 cm2, consistent with [id number]-[id number] aortic stenosis. Ascending aorta appears aneurysmally dilated measuring . There is mild aortic regurgitation noted. There is mild mitral regurgitation noted. There is mild tricuspid regurgitation noted. 2. Interatrial septum: There is no evidence of xzaf-rw-qpxpi shunt by color-flow Doppler or jeiyc-vi-namk shunt by agitated saline contrast study. 3. Left atrium appears mildly enlarged. 4. Right atrium and right ventricle seen within normal limits. 5. Left ventricle has normal size and preserved LV function with an ejection fraction of 55%. CONCLUSIONS: 1. Bicuspid aortic valve with yeks-rh-ujcfcdzh aortic stenosis. 2. Mild aortic regurgitation. 3. Ascending aortic aneurysm measuring about . PLAN: The patient will follow up with Dr. Kojo Negron, her primary plate straightener, for further care. MMODL / IJN: [id number] /
== END ==
LOC: CATHCVL 09:36
PROVIDERS: ATTEND Internal Medicine Cardiovascular Disease
DX: Q23.1 Congenital insufficiency of aortic valve (principal); I70.0 Atherosclerosis of aorta; I71.2 Thoracic aortic aneurysm, without rupture; J44.9 Chronic obstructive pulmonary disease, unspecified; I10 Essential (primary) hypertension; Z86.711 Personal history of pulmonary embolism; E78.5 Hyperlipidemia, unspecified; F17.210 Nicotine dependence, cigarettes, uncomplicated; Z99.81 Dependence on supplemental oxygen; Z79.899 Other long term (current) drug therapy; Z88.8 Allergy status to other drugs, medicaments and biological substances
CPT/HCPCS: 93312; 93320; 93325; J2250; J3010

== ENCOUNTER → 2022-07-14 | Outpatient (CLI) | payer OTHER ==
--- NOTE | 2022-07-17 10:46 | PE ---
EXAMINATION TYPE: PET CT fusion skull to thigh DATE OF EXAM: 07/14/2022 CLINICAL INDICATION:Female, 51 years old with history of R91.8; TECHNIQUE: Following the intravenous administration of 10.66 mCi of F-18 FDG, whole body images are performed from the skull base to the midthigh. Images are reviewed on the computer in the coronal, axial, and sagittal planes. Reconstructed rotating images are created on independent workstation and reviewed on the computer. A non-contrast CT is performed in conjunction with the PET scan. Glucose level 73 mg/dL COMPARISON: CT 09/18/2021, CT 03/27/2021, PET/CT None, FINDINGS: Mediastinal SUV mean is 1.4. Hepatic parenchyma SUV mean is 1.7. SKULL BASE AND NECK: No suspicious FDG activity. CHEST, MEDIASTINUM, AND HILAR REGION: * There is a left upper lobe pulmonary nodule measuring up to 2.5 x 2.4 cm which is increased in siz e from 2020 where it previously measured 0.9 x 0.5 cm max SUV 4.7. * Left pulmonary hilum lymph node max SUV 1.9 measuring up to 7 mm in short axis. * Additional left upper lobe peripheral wedge-shaped area with max SUV 2 and streaky FDG activity in the lung apex also are present with max SUV 3.4. ABDOMEN AND PELVIS: * Multiple hepatic masses with peripheral FDG activity and central decreased FDG activity most consi stent with necrotic neoplasms. The largest in the right hepatic lobe measuring 12.9 x 9.2 cm and left hepatic lobe measuring up to 6.1 x 6.0 cm. OSSEOUS STRUCTURES: No suspicious FDG activity. OTHER CT: Atherosclerosis of the arterial vasculature. There is ascending thoracic aorta dilation up to 4.6 cm which is stable back to 09/18/2021. Infrarenal aneurysmal ectasia up to 2.2 cm. Bilateral b reast implants which appear intact. Severe emphysematous changes are seen throughout the lungs. IMPRESSION: 1. Left upper lobe enlarging nodule with increased FDG activity consistent with a malignancy. Subtle FDG activity within a left pulmonary hilum lymph node may represent metastatic disease. 2. Multiple centrally necrotic masses within the liver with peripheral metabolic activity. Findings favored to represent metastatic disease given the multiplicity and single suspicious pulmonary nodule in the lung. These are new from 09/18/2021. Tissue sampling recommended. 3. Additional areas within the lung of streaky FDG activity which is indeterminate but could represe nt streaky atelectasis. Attention on follow-up PET/CT.
== END | disposition home or self-care (01) ==
LOC: RADPETMAIN 08:17
PROVIDERS: ATTEND Internal Medicine Critical Care Medicine
DX: R91.8 Other nonspecific abnormal finding of lung field (principal)
CPT/HCPCS: 78815; A9552

== ENCOUNTER 2022-07-24 21:43 | Inpatient (IN) | payer OTHER ==
[2022-07-24] MEDS ORDERED: MORPHINE SULFATE 4 MG/ML SYRINGE IVP STA (22:15)
--- NOTE | 2022-07-24 22:25 | ED ---
General Adult HPI - General Chief complaint: Abdominal Pain Stated complaint: Abdominal pain Time Seen by Provider: 07/24/22 21:48 Source: patient, RN notes reviewed Mode of arrival: EMS Limitations: no limitations - History of Present Illness Initial comments: Patient is a 52-year-old female presenting to the emergency room with complaints of severe abdominal pain not controlled with recent prescription of Percocet that she received from [facility]. She states that she was previously on Roggen for chronic pain but recently was diagnosed with lung and liver cancer which has caused an increase in abdominal pain and dy spnea. She reports that she has not seen oncology at it is scheduled for a biopsy soon. She completed a PET scan already. She states that she has not contacted her primary care provider for adjustment in pain management but states that last time she saw her primary care provider she was advised that she would not be able to prescribe her anything other than her Roggen she was RAD prescribed. She denies any increase in abdominal swelling or abdominal mass. She does have nausea without emesis. She has chronic shortness of breath and is on 3 L nasal cannula and states the increase in abdominal pain has caused an increase in dyspnea. She denies any typical chest pain, headaches, dizziness, fevers or chills. In addition to her recently diagnosed lung and liver cancer she has a past medical history significant for COPD, chronic back pain, neuropathy, asthma, hypertension, hyperlipidemia, chronic kidney disease and GERD. - Related Data Home Medications Medication Instructions Recorded Confirmed Desvenlafaxine [Pristiq ER] 150 mg PO HS 11/30/19 06/29/22 Primidone [Mysoline] 100 mg PO HS 11/30/19 06/29/22 Ipratropium-Albuterol Nebulize 3 ml INHALATION RT-QID PRN 06/14/20 06/28/22 [Duoneb 0.5 mg-3 mg/3 ml Soln] traZODone HCL 200 mg PO HS 06/14/20 06/29/22 HYDROcodone/APAP 10-325MG [Roggen 1 tab PO TID PRN 09/18/21 06/29/22 10-325] methocarbamoL [Robaxin-750] 750 mg PO TID PRN 09/18/21 06/29/22 Albuterol Sulfate [Proair Hfa] 1 - 2 puff INHALATION RT-Q6H PRN 02/17/22 06/28/22 Cariprazine HCl [Vraylar] 3 mg PO HS 02/17/22 06/29/22 Ergocalciferol [Vitamin D2 (1250 1,250 mcg PO MO 02/17/22 06/29/22 Mcg = 64935 Iu)] Fluticasone/Umeclidin/Vilanter 1 puff INHALATION RT-DAILY 02/17/22 06/29/22 [Trelegy Ellipta 100-62.5-25] Oxybutynin Chloride 5 mg PO BID 03/07/22 06/29/22 Fluticasone/Umeclidin/Vilanter 1 puff INHALATION DAILY 06/28/22 06/29/22 [Trelegy Ellipta 200-62.5-25] Previous Rx's Medication Instructions Recorded Gabapentin [Neurontin] 300 mg PO BID #6 cap 09/21/21 Allergies Allergy/AdvReac Type Severity Reaction Status Date / Time amitriptyline [From Elavil] AdvReac loss of Verified 06/28/22 10:37 libido pregabalin [From Lyrica] AdvReac "felt Verified 06/28/22 10:37 super high" Review of Systems ROS Statement: Those systems with pertinent positive or pertinent negative responses have been documented in the HPI. ROS Other: All systems not noted in ROS Statement are negative. Past Medical History Past Medical History: Asthma, COPD, GERD/Reflux, Hyperlipidemia, Hypertension, Osteoarthritis (OA), Pneumonia, Pulmonary Embolus (PE), Renal Disease, Respiratory Disorder, Vascular Disorder Additional Past Medical History / Comment(s): Brain aneurysm with repair, peripheral neuropathy, home O2 at 3L AT NIGHT AND PRN , chronic lower back/cervical pain, CHRONIC KIDNEY DISEASE History of Any Multi-Drug Resistant Organisms: None Reported Past Surgical History: Adenoidectomy, Breast Surgery, Section, Cholecystectomy, Hysterectomy, Tonsillectomy Additional Past Surgical History / Comment(s): D&C, lower back pain clinic procedure/ablation, several mini laparoscopies d/t abnormal vaginal bleeding, brain aneurysm repair, septoplasty/facial cyst excision, dental extractions, bilateral breast implants Past Anesthesia/Blood Transfusion Reactions: No Reported Reaction, Family History of Problems w/ Anesthesia Additional Past Anesthesia/Blood Transfusion Reaction / Comment(s): Pt received blood in past without reaction. SISTER HAS POST OP NAUSEA AND VOMITING Smoking Status: Current every day smoker - Past Family History Mother Family Medical History: Cancer Additional Family Medical History / Comment(s): Colon, Uterine cancer w/ mets Father Family Medical History: COPD, Respiratory Disorder Additional Family Medical History / Comment(s): Father from pulmonary fibrosis. General Exam Limitations: no limitations General appearance: alert, in no apparent distress Head exam: Present: atraumatic, normocephalic, normal inspection Eye exam: Present: normal appearance, PERRL, EOMI. Absent: scleral icterus, conjunctival injection, periorbital swelling ENT exam: Present: normal exam, mucous membranes moist Neck exam: Present: normal inspection Respiratory exam: Present: wheezes, accessory muscle use (Occasional purse lipped breathing), decreased breath sounds. Absent: respiratory distress, rales Cardiovascular Exam: Present: regular rate, normal rhythm, normal heart sounds. Absent: systolic murmur, diastolic murmur, rubs, gallop, clicks GI/Abdominal exam: Present: distended, tenderness, mass Extremities exam: Present: normal inspection. Absent: pedal edema, joint swelling Back exam: Present: normal inspection Neurological exam: Present: alert, oriented X3, CN II-XII intact Psychiatric exam: Present: normal affect, normal mood Skin exam: Present: warm, dry, intact, normal color. Absent: rash Course Vital Signs 07/24/22 07/25/22 21:46 00:25 Temperature 99.1 F Pulse Rate 117 H 107 H Respiratory 22 18 Rate Blood Pressure 130/90 113/76 O2 Sat by Pulse 99 97 Oximetry Medical Decision Making - Medical Decision Making 52-year-old female presenting with increase in abdominal pain and shortness of breath which she reports is due to malignancy. Denies any increase in abdominal size or requiring more oxygen. Will check chest x-ray. No need for abdominal imaging due to no increase in ascites or persistent vomiting. Will give morphine for pain and monitor. No response from morphine for abdominal pain will give Dilaudid. Chest x-ray reveals COPD increase lung scarring and lung mass. Will monitor closely. Some relief from Dilaudid but significant pain persists and with increase in nausea after administration. Will give Zofran. Will need admission for i ntractable abdominal pain. Will check CBC and BMP. Abdominal imaging of computed tomography scan evaluated via cell phone photos. Attempting to obtain from [facility] revealed significant intra-abdominal mass with increased growth over 2 weeks. CBC revealed mild leukocytosis and anemia. BMP shows slightly low sodium and chloride levels BUN and creatinine normal. Daughter reports concerns regarding decreased urine output. Will check bladder scan along with urinalysis, covid swab, and influenza swab. Bladder scan revealed 150 mL bladder; will await urinalysis no need for urinary catheter at this time. Will add LFTs. No indication for antibiotic therapy at this time. COVID and influenza negative. Will admit for intractable abdominal pain and place her nougat cutter machine along with oncology on board. Admission to Dr. Fox planned as he is on-call for city call. No callback at this time will plan for admission and place orders. Case discussed with Dr. Jauregui. - Lab Data Result diagrams: 07/24/22 21:50 07/24/22 21:50 Lab Results 07/24/22 07/24/22 07/25/22 Range/Units 21:50 21:50 00:47 WBC 16.2 H (3.8-10.6) k/uL RBC 3.31 L (3.80-5.40) m/uL Hgb 10.4 L (11.4-16.0) gm/dL Hct 31.0 L (34.0-46.0) % MCV 93.7 (80.0-100.0) fL MCH 31.3 (25.0-35.0) pg MCHC 33.4 (31.0-37.0) g/dL RDW 12.1 (11.5-15.5) % Plt Count 583 H (150-450) k/uL MPV 9.3 Neutrophils % 81 % Lymphocytes % 10 % Monocytes % 7 % Eosinophils % 1 % Basophils % 0 % Neutrophils # 13.1 H (1.3-7.7) k/uL Lymphocytes # 1.7 (1.0-4.8) k/uL Monocytes # 1.2 H (0-1.0) k/uL Eosinophils # 0.1 (0-0.7) k/uL Basophils # 0.0 (0-0.2) k/uL Sodium 131 L (137-145) mmol/L Potassium 4.1 (3.5-5.1) mmol/L Chloride 96 L (98-107) mmol/L Carbon Dioxide 26 (22-30) mmol/L Anion Gap 9 mmol/L BUN 7 (7-17) mg/dL Creatinine 0.65 (0.52-1.04) mg/dL Est GFR (CKD-EPI)AfAm >90 (>60 ml/min/1.73 sqM) Est GFR (CKD-EPI)NonAf >90 (>60 ml/min/1.73 sqM) Glucose 101 H (74-99) mg/dL Calcium 8.2 L (8.4-10.2) mg/dL Coronavirus (PCR) (Not Detectd) Influenza Type A RNA Not Detected (Not Detectd) Influenza Type B (PCR) Not Detected (Not Detectd) 07/25/22 Range/Units 00:47 WBC (3.8-10.6) k/uL RBC (3.80-5.40) m/uL Hgb (11.4-16.0) gm/dL Hct (34.0-46.0) % MCV (80.0-100.0) fL MCH (25.0-35.0) pg MCHC (31.0-37.0) g/dL RDW (11.5-15.5) % Plt Count (150-450) k/uL MPV Neutrophils % % Lymphocytes % % Monocytes % % Eosinophils % % Basophils % % Neutrophils # (1.3-7.7) k/uL Lymphocytes # (1.0-4.8) k/uL Monocytes # (0-1.0) k/uL Eosinophils # (0-0.7) k/uL Basophils # (0-0.2) k/uL Sodium (137-145) mmol/L Potassium (3.5-5.1) mmol/L Chloride (98-107) mmol/L Carbon Dioxide (22-30) mmol/L Anion Gap mmol/L BUN (7-17) mg/dL Creatinine (0.52-1.04) mg/dL Est GFR (CKD-EPI)AfAm (>60 ml/min/1.73 sqM) Est GFR (CKD-EPI)NonAf (>60 ml/min/1.73 sqM) Glucose (74-99) mg/dL Calcium (8.4-10.2) mg/dL Coronavirus (PCR) Not Detected (Not Detectd) Influenza Type A RNA (Not Detectd) Influenza Type B (PCR) (Not Detectd) - Radiology Data Radiology results: report reviewed, image reviewed Two-view chest x-ray impression COPD. Scarring of the upper lobes which is increased compared to old exam. Retro-sternal mass in the anterior segment of th e left upper lobe present on recent PET scan on 07/14/2022 consistent with tumor. Disposition Clinical Impression: Abdominal pain Disposition: ADMITTED IP TO THIS HOSP Condition: Stable Is patient prescribed a controlled substance at d/c from ED?: No Referrals: Donna Monaco NPC [Primary Care Provider] - 1-2 days Time of Disposition: 02:30
--- NOTE | 2022-07-24 22:43 | XR ---
EXAMINATION TYPE: XR chest 2V DATE OF EXAM: 07/24/2022 COMPARISON: 03/27/2021 HISTORY: Short of breath TECHNIQUE: 2 views FINDINGS: Heart is normal. There is no pleural effusion. There is emphysematous changes in the upper lobes. There is coarse linear density in both upper lobes. No hilar mass. There is a sharply marginat ed mass adjacent to the sternum and best seen on the lateral view measuring 4 x 2 cm in the anterior segment left upper lobe. The bony thorax is intact. Sternum is intact. There is mild pulmonary hyperi nflation. IMPRESSION: There is COPD. Scarring in the upper lobes which is increased slightly compared to old ex am. There is retrosternal mass in the anterior segment left upper lobe that is also present on recent PET /CT scan of 07/14/2022 and consistent with tumor.
[2022-07-24] MEDS ORDERED: HYDROmorphone 1 MG/ML 1 ML SYRINGE IVP STA (23:14)
[2022-07-24 23:56] LABS: Basophils % (A) 0 %; Eosinophils # (A) 0.1 k/uL (0-0.7); Eosinophils % (A) 1 %; HGB 10.4 gm/dL (11.4-16.0); Lymphocytes # (A) 1.7 k/uL (1.0-4.8); Lymphocytes % (A) 10 %; MCH 31.3 pg (25.0-35.0); MCHC 33.4 g/dL (31.0-37.0); MCV 93.7 fL (80.0-100.0); Mean Platelet Volume 9.3; Monocytes # (A) 1.2 k/uL (0-1.0); Monocytes % (A) 7 %; Neutrophils # (A) 13.1 k/uL (1.3-7.7); Neutrophils % (A) 81 %; Platelet Count 583 k/uL (150-450); RBC 3.31 m/uL (3.80-5.40); RDW 12.1 % (11.5-15.5); WBC 16.2 k/uL (3.8-10.6)
[2022-07-25 00:07] LABS: African American GFR (CKD) >90 (>60 ml/min/1.73 sqM); Anion Gap 9 mmol/L; Blood Urea Nitrogen 7 mg/dL (7-17); Calcium 8.2 mg/dL (8.4-10.2); Carbon Dioxide 26 mmol/L (22-30); Chloride 96 mmol/L (98-107); Glucose 101 mg/dL (74-99); Non-African American GFR(CKD) >90 (>60 ml/min/1.73 sqM); Potassium 4.1 mmol/L (3.5-5.1); Sodium 131 mmol/L (137-145)
[2022-07-25] MEDS ORDERED: ONDANSETRON 4 MG/2 ML VIAL IVP STA (00:39)
[2022-07-25] MEDS ORDERED: NALOXONE 0.4 MG/ML 1 ML VIAL IV PRN (02:18)
[2022-07-25 03:14] LABS: Total Bilirubin 0.6 mg/dL (0.2-1.3)
[2022-07-25] MEDS: HYDROmorphone 1 MG/ML 1 ML SYRINGE IVP PRN ×5 (03:19→23:30)
[2022-07-25] MEDS: ONDANSETRON 4 MG/2 ML VIAL IVP PRN ×2 (03:19→19:57)
[2022-07-25 04:18] LABS: Appearance,Urine Clear (Clear); Bacteria,Urine Rare /hpf; Bilirubin,Urine Negative (Negative); Blood,Urine Negative (Negative); Color,Urine Yellow; Glucose,Urine (UA) Negative (Negative); Ketones,Urine Negative (Negative); Leukocyte Esterase,Urine Trace (Negative); Mucus,Urine Rare /hpf; Nitrite,Urine Negative (Negative); PH, Urine 6.5 (5.0-8.0); Protein,Urine Trace (Negative); RBC,Urine 1 /hpf (0-5); Specific Gravity,Urine 1.012 (1.001-1.035); Squamous Epithelial Cell,Urine 5 /hpf (0-4); WBC,Urine 2 /hpf (0-5)
[2022-07-25] MEDS ORDERED: HYDROmorphone 0.5 MG/0.5 ML SYRINGE IVP STA (05:48)
[2022-07-25] MEDS ORDERED: METOCLOPRAMIDE 5 MG/ML 2 ML VIAL IVP STA (05:48)
[2022-07-25] MEDS ORDERED: IOPAMIDOL CONTRAST (ORAL USE) VIAL PO PRN (08:25)
[2022-07-25 10:07] LABS: Amylase <30 U/L (30-110); Lipase 15 U/L (23-300)
--- NOTE | 2022-07-25 10:17 | CT ---
EXAMINATION TYPE: CT abdomen pelvis w con DATE OF EXAM: 07/25/2022 COMPARISON: 07/14/2022 HISTORY: 52-year-old female with abdominal pain, nausea, recent diagnosis of lung cancer. TECHNIQUE: Contiguous axial scanning of the abdomen and pelvis following administration of 100 ml Iso roberto 300 IV contrast. Delayed images through the kidneys and coronal/sagittal reconstructions perform ed. CT DLP: 527.3 mGycm Automated exposure control for dose reduction was used. FINDINGS: Heart normal size without pericardial effusion. Ascending aortic aneurysm seen on the patie nt's and 05/26/2022 PET/CT not included in the kidym-rl-eand. Emphysematous changes in the visualized lower lungs. Very large hepatic masses. 2 of them measuring up to 14.4 and 13.8 cm. Slight enlargement by approxim ately a centimeter. Smaller lesions measuring up to 7.1 and 6.9 cm. The largest masses protrude onto the anterior abdominal wall. Portal venous system is patent. Bile duct mildly dilated 8 mm, acceptabl e given postcholecystectomy status. Possible abnormal soft tissue nodule left peripancreatic retroperitoneum measuring 1.2 cm, axial imag e 16 not clearly seen previously. Adrenal glands, kidneys, spleen, and pancreas otherwise show no gross abnormality. There is new mild abdominal pelvic ascites. Moderate atherosclerotic plaque and calcification throughout the abdominal aorta and iliac arteries. Bilobed fusiform ectasia infrarenal abdominal aorta at 2.9 and 2.6 cm. No dilated small bowel or free air. Some prominent fluid-filled small bowel loops in the mid to lower abdomen and pelvis and suggestion of fold thickening throughout left-sided jejunal loops. Correlate for possible enteritis. Some retained oral contrast material is noted scattered throughout the colon. Redundant sigmoid colon. No pericolonic inflammatory change. Bladder is urine distended. Uterus appears surgically absent. Possible cystic lesion of the right ovary measuring 3.6 x 2.4 cm, unchanged from 07/14/2022. Bones: No osseous destructive process. IMPRESSION: 1. VERY LARGE HEPATIC MASSES MEASURING UP TO 14.4 CM HAVE INCREASED BY APPROXIMATELY 1 CM COMPARED TO 07/14/2022. THE LARGEST MEASURE UP TO 14.4 CM AND PROTRUDE AGAINST THE ANTERIOR ABDOMINAL WALL. THESE OCCUPY A SIGNIFICANT PORTION OF THE HEPATIC PARENCHYMA. 2. PROMINENT FLUID-FILLED SMALL BOWEL LOOPS AND JEJUNAL FOLD THICKENING ALONG THE LEFT SIDE OF THE AB DOMEN. FINDINGS MAY REPRESENT ENTERITIS. 3. NEW MILD ABDOMINOPELVIC ASCITES. 4. Moderate atherosclerotic change abdominal aorta and iliac arteries. Bilobed fusiform ectasia infra renal abdominal aorta up to 2.9 cm. Ascending aortic aneurysm seen on the patient's 07/14/2022 PET/CT is not included in the [id number]-gz-[id number]. 5. Possible 2.6 cm cystic lesion of the right ovary. Correlate with patient's menopausal status. Cyst ic epithelial ovarian neoplasm not excluded. Recommend further characterization with pelvic ultrasoun d on a nonemergent basis.
--- NOTE | 2022-07-25 11:25 | P.CNPUL ---
History of Present Illness Consult date: 07/25/22 Requesting physician: Jose Fox Reason for consult: abnormal CXR/CT Chief complaint: Abdominal pain History of present illness: This a very pleasant 52-year-old female patient who has a history of anxiety, chronic back pain, chronic neck pain, depression, hypertension, pulmonary embolism. She also has a 40 year history of chronic and ongoing tobacco dependence and chronic obstructive pulmonary disease, severe with an FEV1 value 33% of predicted. She is maintained on Trelegy ellipta, DuoNeb inhalations, pro-air. She also has a known history of a lung mass that had been followed in the outpatient setting. Her most recent CAT scan of the chest was performed at [facility] in the emergency room with complaints of shortness of breath. She was found to have a solid lung nodule measuring 2.4 cm in the left upper lobe medially as well as a nodular density pleural-based measuring 1 cm. Cavitary type masses seen within the left lung apex measuring 2.6 x 2.0 which also could reflect infected left apical bulla. There is noted hepatic masses. She been seen and evaluated by Dr. Walton in our office as a post hospital follow-up. He ordered a PET scan which was performed on 07/16/2022 which did reveal left upper lobe enlarging nodule with increased FDG activity consistent with malignancy. There is also a left pulmonary hilum lymph node with FDG activity. There is multiple centrally necrotic masses within the liver with peripheral metabolic activity. Suspect metastatic from lung. She had been scheduled for a liver biopsy on 08/06/2022. She presented here to the emergency room yesterday with ongoing abdominal pain mostly in the right upper quadrant. White count 16.2. Hemoglobin 10.4. Sodium 131. Potassium 4.1. BUN 7. Creatinine 0.65. AST 43. ALT 13. Amylase less than 30. Lipase 15. Carroll virus not detected. Influenza screen negative. Chest x-ray shows evidence of COPD. Scarring in the upper lobes which is increased slightly compared to old exam. There is a retrosternal mass in the anterior segment left upper lobe. She is seen in consultation in the emergency department. Currently sitting up on the stretcher. Awake and alert in no acute distress. She is maintaining O2 saturations up to 100% on 3 L/m per nasal cannula. She's afebrile. Hemodynamically stable. She is having abdominal distention and discomfort. A computed tomography scan of the abdomen and pelvis reveals a very large hepatic masses measuring up to 14.4 cm which have increased by 1 cm compared to 07/14/2022. The largest measured at 14.4 and protrudes against anterior abdominal wall. These occupy significant portion of the hepatic parenchymal. There is also prominent fluid-filled small bowel loops and jejunal fold thickening along the left side of the abdomen. Findings may represent enteritis. Mild abdominal pelvic ascites. Review of Systems REVIEW OF SYSTEMS: CONSTITUTIONAL: Denies any recent significant weight loss or weight gain. EYES: Denies change in vision. EARS, NOSE, MOUTH, THROAT: Denies headaches, denies sore throat. CARDIOVASCULAR: Denies chest pain, palpitations or syncopal episodes. RESPIRATORY: Positive for shortness of breath, cough, congestion no hemoptysis. GASTROINTESTINAL: Positive for abdominal pain GENITOURINARY: Denies hematuria, denies infections. MUSKULOSKELETAL: Denies pain, denies swelling. INTEGUMENTARY: Denies rash, denies eczema. NEUROLOGICAL: Denies recent memory loss, no recent seizure activity. PSYCHIATRIC: Denies anxiety, denies depression. HEMATOLOGIC/LYMPHATIC: Denies anemia, denies enlarged lymph nodes. Past Medical History Past Medical History: Asthma, COPD, GERD/Reflux, Hyperlipidemia, Hypertension, Osteoarthritis (OA), Pneumonia, Pulmonary Embolus (PE), Renal Disease, Respiratory Disorder, Vascular Disorder Additional Past Medical History / Comment(s): Brain aneurysm with repair, peripheral neuropathy, home O2 at 3L AT NIGHT AND PRN , chronic lower back/cervical pain, CHRONIC KIDNEY DISEASE History of Any Multi-Drug Resistant Organisms: None Reported Past Surgical History: Adenoidectomy, Breast Surgery, Section, Cholecystectomy, Hysterectomy, Tonsillectomy Additional Past Surgical History / Comment(s): D&C, lower back pain clinic procedure/ablation, several mini laparoscopies d/t abnormal vaginal bleeding, brain aneurysm repair, septoplasty/facial cyst excision, dental extractions, bilateral breast implants Past Anesthesia/Blood Transfusion Reactions: No Reported Reaction, Family History of Problems w/ Anesthesia Additional Past Anesthesia/Blood Transfusion Reaction / Comment(s): Pt received blood in past without reaction. SISTER HAS POST OP NAUSEA AND VOMITING Smoking Status: Current every day smoker - Past Family History Mother Family Medical History: Cancer Additional Family Medical History / Comment(s): Colon, Uterine cancer w/ mets Father Family Medical History: COPD, Respiratory Disorder Additional Family Medical History / Comment(s): Father from pulmonary fibrosis. Medications and Allergies Home Medications Medication Instructions Recorded Confirmed Type Desvenlafaxine [Pristiq ER] 100 mg PO HS 11/30/19 07/25/22 History Primidone [Mysoline] 100 mg PO HS 11/30/19 07/25/22 History Ipratropium-Albuterol Nebulize 3 ml INHALATION RT-TID PRN 06/14/20 07/25/22 History [Duoneb 0.5 mg-3 mg/3 ml Soln] traZODone HCL 200 mg PO HS 06/14/20 07/25/22 History methocarbamoL [Robaxin-750] 750 mg PO TID PRN 09/18/21 07/25/22 History Gabapentin [Neurontin] 300 mg PO BID #6 cap 09/21/21 07/25/22 Rx Albuterol Sulfate [Proair Hfa] 1 - 2 puff INHALATION RT-Q6H PRN 02/17/22 07/25/22 History Cariprazine HCl [Vraylar] 3 mg PO HS 02/17/22 07/25/22 History Ergocalciferol [Vitamin D2 (1250 1,250 mcg PO MO 02/17/22 07/25/22 History Mcg = 29911 Iu)] Fluticasone/Umeclidin/Vilanter 1 puff INHALATION RT-DAILY 02/17/22 07/25/22 History [Trelegy Ellipta 100-62.5-25] Oxybutynin Chloride 5 mg PO BID 03/07/22 07/25/22 History Fluticasone/Umeclidin/Vilanter 1 puff INHALATION RT-DAILY 06/28/22 07/25/22 History [Trelegy Ellipta 200-62.5-25] Desvenlafaxine Succinate [Pristiq 50 mg PO HS 07/25/22 07/25/22 History ER] Ondansetron Odt [Zofran Odt] 8 mg PO Q8H PRN 07/25/22 07/25/22 History Prochlorperazine [Compazine] 10 mg PO BID PRN 07/25/22 07/25/22 History oxyCODONE-APAP 7.5-325MG [Percocet 1 tab PO TID PRN 07/25/22 07/25/22 History 7.5-325 mg] Allergies Allergy/AdvReac Type Severity Reaction Status Date / Time amitriptyline [From Elavil] AdvReac loss of Verified 07/25/22 08:08 libido pregabalin [From Lyrica] AdvReac "felt Verified 07/25/22 08:08 super high" Physical Exam Vitals: Vital Signs Temp Pulse Resp BP Pulse Ox 07/25/22 09:31 93 16 111/90 100 07/25/22 05:54 107 H 20 102/78 95 07/25/22 03:36 98.5 F 102 H 22 123/86 97 07/25/22 03:01 92 15 97 07/25/22 00:25 107 H 18 113/76 97 07/24/22 21:46 99.1 F 117 H 22 130/90 99 Intake and Output 07/24/22 07/25/22 07/25/22 22:59 06:59 14:59 Other: Weight 49.895 kg GENERAL EXAM: Alert, pleasant 52-year-old female, appears older than stated age, currently on 3 L nasal cannula, fairly comfortable in no apparent distress. HEAD: Normocephalic. EYES: Normal reaction of pupils, equal size. NOSE: Clear with pink turbinates. THROAT: No erythema or exudates. NECK: No masses, no JVD. CHEST: No chest wall deformity. LUNGS: Equal air entry with no crackles, wheeze, rhonchi or dullness. Diminished. CVS: S1 and S2 normal with no audible murmur, regular rhythm. ABDOMEN: Positive hepatomegaly, tenderness, distentio, normal bowel sounds. SPINE: No scoliosis or deformity SKIN: No rashes CENTRAL NERVOUS SYSTEM: No focal deficits, tone is normal in all 4 extremities. EXTREMITIES: There is no peripheral edema. No clubbing, no cyanosis. Peripheral pulses are intact. Results - Laboratory Findings CBC and BMP: 07/24/22 21:50 07/24/22 21:50 Abnormal lab findings: Abnormal Labs 07/24/22 07/24/22 07/24/22 21:50 21:50 21:50 WBC 16.2 H RBC 3.31 L Hgb 10.4 L Hct 31.0 L Plt Count 583 H Neutrophils # 13.1 H Monocytes # 1.2 H Sodium 131 L Chloride 96 L Glucose 101 H Calcium 8.2 L AST 43 H Amylase Lipase Urine Protein Ur Leukocyte Esterase Ur Squamous Epith Cells Urine Bacteria Urine Mucus 07/25/22 07/25/22 03:36 09:25 WBC RBC Hgb Hct Plt Count Neutrophils # Monocytes # Sodium Chloride Glucose Calcium AST Amylase <30 L Lipase 15 L Urine Protein Trace H Ur Leukocyte Esterase Trace H Ur Squamous Epith Cells 5 H Urine Bacteria Rare H Urine Mucus Rare H - Diagnostic Findings Chest x-ray: image reviewed Assessment and Plan Assessment: Abdominal discomfort. Computed tomography scan of the abdomen and pelvis reveals a very large hepatic masses measuring up to 14.4 cm which have increased by 1 cm compared to 07/14/2022. The largest measured at 14.4 and protrudes against anterior abdominal wall. These occupy significant portion of the hepatic parenchymal. There is also prominent fluid-filled small bowel loops and jejunal fold thickening along the left side of the abdomen. Findings may represent enteritis. Mild abdominal pelvic ascites. Lung masses. Her most recent CAT scan of the chest was performed at [facility] in the emergency room with complaints of shortness of breath. She was found to have a solid lung nodule measuring 2.4 cm in the left upper lobe medially as well as a nodular density pleural-based measuring 1 cm. Cavitary type masses seen within the left lung apex measuring 2.6 x 2.0 which also could reflect infected left apical bulla. There is noted hepatic masses. She been seen and evaluated by Dr. Walton in our office as a post hospital follow-up. He ordered a PET scan which was performed on 07/16/2022 which did reveal left upper lobe enlarging nodule with increased FDG activity consistent with malignancy. There is also a left pulmonary hilum lymph node with FDG activity. There is multiple centrally necrotic masses within the liver with peripheral metabolic activity. Suspect metastatic from lung. She had been scheduled for a liver biopsy on 08/06/2022. Possible 2.6 cm cystic lesion of the right ovary measuring 3.6 x 2.4 cm. Further characterization with pelvic ultrasound on an emergent basis recommended. Cannot rule out neoplasm. Chronic and ongoing tobacco dependence of approximately 40 years Chronic obstructive pulmonary disease, severe with an FEV1 value 33% of predicted Chronic anxiety/depression Chronic neck and back pain History of pulmonary embolism Hyperlipidemia Plan: The patient was seen and evaluated Chest x-ray, CAT scan, labs and medications reviewed We will see if IR could do the liver biopsy this admission Patient is aware she may have lung cancer with liver metastasis She is educated regarding the importance of complete smoking cessation Continue Symbicort, DuoNeb inhalations Continue adequate pain control We will continue to follow and make further recommendations based on her clinical status I have personally seen and examined the patient, performed the documentation and the assessment and plan as written. Number of minutes spent on the visit: 20.
[2022-07-25] MEDS: IPRATROPIUM-ALBUTEROL 3 ML NEB INHALATION SCH ×3 (11:48→20:13)
[2022-07-25 13:23] LABS: INR 1.2 (<1.2); Prothrombin Time 12.6 sec (9.0-12.0)
[2022-07-25] MEDS ORDERED: IPRATROPIUM-ALBUTEROL 3 ML NEB INHALATION PRN (15:34)
[2022-07-25] MEDS ORDERED: ONDANSETRON ODT 8 MG TAB.RAPDIS PO PRN (15:34)
--- NOTE | 2022-07-25 17:16 | P.CONS ---
History of Present Illness - Reason for Consult Consult date: 07/25/22 Concern for metastatic cancer - Chief Complaint Abdominal pain - History of Present Illness Ms. Lui is a 52-year-old woman with a past medical history significant for COPD along with current cigarette smoking who presented to the ED with progressive abdominal discomfort. She noted this began in June 2022 and had gotten progressively worse. She reports having had an abdominal ultrasound done in June 2022, which revealed abnormal liver lesions. Given her smoking history, she was arranged to have a PET CT performed on 07/16/2022 which revealed a left upper lobe nodule measuring 2.5 x 2.4 cm with an SUV of 4.7. This nodule had increased in size from prior CT imaging on 09/18/2021. In addition she is noted to have a left pulmonary hilar lymph node measuring 7 mm in size with an SUV of 1.9. Additional streaky activity in the left upper lobe was noted with an SUV of 3.4. She was also noted to have multiple hepatic masses with peripheral FDG activity and decreased FDG activity centrally that was consistent with necrotic neoplasm. The largest lesion in the right hepatic lobe measured 12.9 x 9.2 cm with the largest lesion in the left hepatic lobe measuring 6.1 x 6 cm. She was initially on Percocet 7.5 mg/325 mg 3 times daily, but continues to have progressive abdominal pain to the point where she was no longer eating and having nausea with vomiting. Given her progressive abdominal pain, anorexia, nausea, vomiting she presented to the ED for additional management and monitoring. While in the ED, she had a CT of the abdomen and pelvis which revealed large he patic masses measuring 14.4 and 13.8 cm respectively causing protrusion on the anterior abdominal wall. Labs revealed white blood cell count 16.2 (ANC 13), hemoglobin 10.4, platelets 583. CMP revealed no acute metabolic abnormalities with no evidence of hyperbilirubinemia. Amylase and lipase were within normal limits. She was negative for COVID-19, flu A, & flu B. she was given a total of morphine 4 mg IV, Dilaudid 1.5 mg IV. She was started on Dilaudid 1 mg IV every 3 hours along with Zofran 4 mg IV every 8 hours. She was admitted to internal medicine for additional management and monitoring Review of Systems 14 point review of systems conducted with pertinent positives and negatives as noted per HPI Past Medical History Past Medical History: Asthma, COPD, GERD/Reflux, Hyperlipidemia, Hypertension, Osteoarthritis (OA), Pneumonia, Pulmonary Embolus (PE), Renal Disease, Respiratory Disorder, Vascular Disorder Additional Past Medical History / Comment(s): Brain aneurysm with repair, perip heral neuropathy, home O2 at 3L AT NIGHT AND PRN , chronic lower back/cervical pain, CHRONIC KIDNEY DISEASE History of Any Multi-Drug Resistant Organisms: None Reported Past Surgical History: Adenoidectomy, Breast Surgery, Section, Cholecystectomy, Hysterectomy, Tonsillectomy Additional Past Surgical History / Comment(s): D&C, lower back pain clinic procedure/ablation, several mini laparoscopies d/t abnormal vaginal bleeding, brain aneurysm repair, septoplasty/facial cyst excision, dental extractions, bilateral breast implants Past Anesthesia/Blood Transfusion Reactions: No Reported Reaction, Family History of Problems w/ Anesthesia Additional Past Anesthesia/Blood Transfusion Reaction / Comm: Pt received blood in past without reaction. SISTER HAS POST OP NAUSEA AND VOMITING Smoking Status: Current every day smoker - Past Family History Mother Family Medical History: Cancer Additional Family Medical History / Comment(s): Colon, Uterine cancer w/ mets Father Family Medical History: COPD, Respiratory Disorder Additional Family Medical History / Comment(s): Father from pulmonary fibro sis. Medications and Allergies Home Medications Medication Instructions Recorded Confirmed Type Desvenlafaxine [Pristiq ER] 100 mg PO HS 11/30/19 07/25/22 History Primidone [Mysoline] 100 mg PO HS 11/30/19 07/25/22 History Ipratropium-Albuterol Nebulize 3 ml INHALATION RT-TID PRN 06/14/20 07/25/22 History [Duoneb 0.5 mg-3 mg/3 ml Soln] traZODone HCL 200 mg PO HS 06/14/20 07/25/22 History methocarbamoL [Robaxin-750] 750 mg PO TID PRN 09/18/21 07/25/22 History Gabapentin [Neurontin] 300 mg PO BID #6 cap 09/21/21 07/25/22 Rx Albuterol Sulfate [Proair Hfa] 1 - 2 puff INHALATION RT-Q6H PRN 02/17/22 07/25/22 History Cariprazine HCl [Vraylar] 3 mg PO HS 02/17/22 07/25/22 History Ergocalciferol [Vitamin D2 (1250 1,250 mcg PO MO 02/17/22 07/25/22 History Mcg = 52457 Iu)] Fluticasone/Umeclidin/Vilanter 1 puff INHALATION RT-DAILY 02/17/22 07/25/22 History [Trelegy Ellipta 100-62.5-25] Oxybutynin Chloride 5 mg PO BID 03/07/22 07/25/22 History Fluticasone/Umeclidin/Vilanter 1 puff INHALATION RT-DAILY 06/28/22 07/25/22 History [Trelegy Ellipta 200-62.5-25] Desvenlafaxine Succinate [Pristiq 50 mg PO HS 07/25/22 07/25/22 History ER] Ondansetron Odt [Zofran Odt] 8 mg PO Q8H PRN 07/25/22 07/25/22 History Prochlorperazine [Compazine] 10 mg PO BID PRN 07/25/22 07/25/22 History oxyCODONE-APAP 7.5-325MG [Percocet 1 tab PO TID PRN 07/25/22 07/25/22 History 7.5-325 mg] Allergies Allergy/AdvReac Type Severity Reaction Status Date / Time amitriptyline [From Elavil] AdvReac loss of Verified 07/25/22 08:08 libido pregabalin [From Lyrica] AdvReac "felt Verified 07/25/22 08:08 super high" Physical Exam Vitals: Vital Signs Temp Pulse Resp BP Pulse Ox 07/25/22 16:49 18 07/25/22 15:43 111 H 18 103/84 97 07/25/22 14:36 100 18 07/25/22 14:28 100 18 07/25/22 11:54 100 18 07/25/22 11:48 96 18 96 07/25/22 09:31 93 16 111/90 100 07/25/22 05:54 107 H 20 102/78 95 07/25/22 03:36 98.5 F 102 H 22 123/86 97 07/25/22 03:01 92 15 97 07/25/22 00:25 107 H 18 113/76 97 07/24/22 21:46 99.1 F 117 H 22 130/90 99 Intake and Output 07/25/22 07/25/22 07/25/22 06:59 14:59 22:59 Other: Voiding Method Toilet Weight 49.895 kg - Constitutional General appearance: average body habitus, mild distress - EENT Eyes: EOMI - Respiratory Respiratory: bilateral: CTA - Cardiovascular Rhythm: regular - Gastrointestinal General gastrointestinal: distended, hepatomegaly Localized gastrointestinal: tender: epigastric periumbilical (Periumbilical tend erness the site of the umbilicus) - Integumentary Integumentary: no rash - Neurologic Neurologic: CNII-XII intact Results CBC & Chem 7: 07/24/22 21:50 07/24/22 21:50 Labs: Abnormal Lab Results - Last 24 Hours (Table) 07/24/22 07/24/22 07/24/22 Range/Units 21:50 21:50 21:50 WBC 16.2 H (3.8-10.6) k/uL RBC 3.31 L (3.80-5.40) m/uL Hgb 10.4 L (11.4-16.0) gm/dL Hct 31.0 L (34.0-46.0) % Plt Count 583 H (150-450) k/uL Neutrophils # 13.1 H (1.3-7.7) k/uL Monocytes # 1.2 H (0-1.0) k/uL PT (9.0-12.0) sec INR (<1.2) Sodium 131 L (137-145) mmol/L Chloride 96 L (98-107) mmol/L Glucose 101 H (74-99) mg/dL Calcium 8.2 L (8.4-10.2) mg/dL AST 43 H (14-36) U/L Amylase (30-110) U/L Lipase (23-300) U/L Urine Protein (Negative) Ur Leukocyte Esterase (Negative) Ur Squamous Epith Cells (0-4) /hpf Urine Bacteria (None) /hpf Urine Mucus (None) /hpf 07/25/22 07/25/22 07/25/22 Range/Units 03:36 09:25 13:04 WBC (3.8-10.6) k/uL RBC (3.80-5.40) m/uL Hgb (11.4-16.0) gm/dL Hct (34.0-46.0) % Plt Count (150-450) k/uL Neutrophils # (1.3-7.7) k/uL Monocytes # (0-1.0) k/uL PT 12.6 H (9.0-12.0) sec INR 1.2 H (<1.2) Sodium (137-145) mmol/L Chloride (98-107) mmol/L Glucose (74-99) mg/dL Calcium (8.4-10.2) mg/dL AST (14-36) U/L Amylase <30 L (30-110) U/L Lipase 15 L (23-300) U/L Urine Protein Trace H (Negative) Ur Leukocyte Esterase Trace H (Negative) Ur Squamous Epith Cells 5 H (0-4) /hpf Urine Bacteria Rare H (None) /hpf Urine Mucus Rare H (None) /hpf CT scan - abdomen: report reviewed Assessment and Plan Assessment: Ms. Lui is a 52-year-old woman with a past medical history significant for COPD and cigarette smoking who presented with progressive abdominal pain and deepa sea. PET/CT on 07/16/[address] abdomen and pelvis on 07/25/2022 who has noted multiple large hepatic masses concerning for metastatic disease. Based on the findings of the PET/CT, she has radiographic evidence concerning for primary lung malignancy with metastasis to the liver. (1) Abdominal pain Current Visit: Yes Status: Acute Code(s): R10.9 - UNSPECIFIED ABDOMINAL PAIN SNOMED Code(s): 42541386 (2) Liver mass Current Visit: Yes Status: Acute Code(s): R16.0 - HEPATOMEGALY, NOT ELSEWHERE CLASSIFIED SNOMED Code(s): 412221958 Plan: #Liver masses -She is noted to have multiple large hepatic masses in both the right and left hepatic lobes on PET CT along with CT abdomen and pelvis on admission -Given the finding of a primary left upper lobe nodule along with left hilar lymphadenopathy, this is suspicious for primary lung cancer with metastasis to the liver -This clinical suspicion was discussed with Ms. Lui, who was already aware of the findings of PET/CT before our discussion -She noted she had a liver biopsy scheduled for 08/06/2022 as an outpatient -Given her progressive abdominal pain along with clinically evident hepatomegaly, this biopsy should be performed as an inpatient to help expedite her workup -Liver biopsy with interventional radiology has already been ordered by the pulmonary team, appreciate their assistance -If indeed a metastatic lung cancer is confirmed with biopsy, she will also need a brain MRI to complete the full staging workup #Abdominal pain -Secondary to likely metastatic liver masses noted above -Her pain is currently improved on Dilaudid 1 mg IV every 3 hours -We will assess her inpatient requirements and subsequently transitioned those to a tolerable oral regimen prior to discharge -We did discuss that the ultimate treatment for her abdominal pain would be treatment of any primary malignancy
[2022-07-25] MEDS: SYMBICORT 160-4.5 MCG INHALER INHALATION SCH (20:14)
[2022-07-25] MEDS: GABAPENTIN 300 MG CAP PO SCH (21:27)
[2022-07-25] MEDS: DESVENLAFAXINE SUCCINATE 50 MG TAB.ER.24H PO SCH ×2 (21:27)
[2022-07-25] MEDS: OXYBUTYNIN CHLORIDE 5 MG TAB PO SCH (21:27)
[2022-07-25] MEDS: traZODone HCL 100 MG TAB PO SCH (21:27)
[2022-07-25] MEDS: PRIMIDONE 50 MG TAB PO SCH (21:27)
[2022-07-25] MEDS: NON FORMULARY DRUG (Cariprazine Hcl [Vraylar] 3 MG Capsule) PO SCH (23:40)
[2022-07-26] MEDS: oxyCODONE-APAP 7.5-325MG 1 EACH TAB PO PRN (01:34)
[2022-07-26] MEDS: ONDANSETRON 4 MG/2 ML VIAL IVP PRN (01:34)
[2022-07-26] MEDS: HYDROmorphone 1 MG/ML 1 ML SYRINGE IVP PRN ×5 (04:32→22:06)
[2022-07-26] MEDS: SYMBICORT 160-4.5 MCG INHALER INHALATION SCH ×2 (07:26→20:16)
[2022-07-26] MEDS: IPRATROPIUM-ALBUTEROL 3 ML NEB INHALATION SCH ×4 (07:26→20:16)
[2022-07-26] MEDS ORDERED: ONDANSETRON 4 MG/2 ML VIAL IVP PRN (08:12)
--- NOTE | 2022-07-26 08:34 | HP ---
HISTORY AND PHYSICAL HISTORY OF PRESENT ILLNESS: This 52-year-old female came to emergency room with severe abdominal pain, not controlled with Percocet. She came to the hospital where she was found to have liver and lung cancer, progressively worsening to the liver. She is supposed to get a possible interventional biopsy of her liver as she has not had a biopsy, hopefully it would be done by when she is here, pain control is her main concern. Her breathing is about the same as normal on 3 L nasal cannula. Has neuropathy, asthma, COPD, chronic kidney disease, GERD, lipids, dyslipidemia, smoking for many years. MEDICATIONS: See list. ALLERGIES: Amitriptyline, pregabalin. REVIEW OF SYSTEMS: A 14-point review of systems, severe abdominal pain and back pain, otherwise negative. PAST MEDICAL HISTORY: Osteoarthritis; pneumonia; history of PE; renal disease; respiratory disorder; vascular disorder; lung cancer into the liver, unclear what pathology it is; asthma; COPD; GERD. PAST SURGICAL HISTORY: , breast surgery, adenoidectomy, cholecystectomy, hysterectomy, tonsillectomy, and D&C. FAMILY HISTORY: Cancer of colon and uterine in mom, father COPD. PHYSICAL EXAMINATION: VITAL SIGNS: Reviewed. She has 2-3 L oxygen set in the mid 90s. Temp 99.1, pulse 107- 117, respiratory rate 18-22, blood pressure is 113 to 130 over 70s to 90s, O2 97-99. HEENT: Pupils are equal, round, and reactive. No jaundice on the eyes, no scleral icterus. NECK: Supple. RESPIRATORY: Wheezes, mild accessory muscle use. No rales. CARDIOVASCULAR: S1, S2. ABDOMEN: Distended. Tenderness to palpation throughout the upper abdomen. EXTREMITIES: No cyanosis, clubbing, or edema. NEUROLOGIC: Cranial nerves intact. PSYCH: Fair mood and affect. SKIN: Warm, dry, intact. We are going to give her Dilaudid for pain. Chest x-ray is reviewed. She has lung cancer into the liver with increasing abdominal pain secondary to liver. Abdominal swelling due to ascites which is causing her pain as well as the liver metastases. Hopefully, we can get some kind of biopsy done. Get oncology consulted. Pulmonary for COPD and lung cancer. COVID is negative, influenza is negative. Prognosis guarded. Please see further orders. MMODL / IJN: [id number] /
[2022-07-26] MEDS: OXYBUTYNIN CHLORIDE 5 MG TAB PO SCH ×2 (09:07→22:07)
[2022-07-26] MEDS: GABAPENTIN 300 MG CAP PO SCH ×2 (09:07→22:07)
[2022-07-26] MEDS: methylPREDNISolone SOD SUCCI 125 MG/2 ML VIAL IV SCH ×3 (09:07→17:52)
[2022-07-26 09:08] LABS: Basophils # (A) 0.04 X 10*3/uL (0.00-0.10); Basophils % (A) 0.3 %; Eosinophils # (A) 0.06 X 10*3/uL (0.04-0.35); Eosinophils % (A) 0.4 %; HCT 27.5 % (37.2-46.3); HGB 8.9 g/dL (12.0-15.0); Immature Grans, Automated 0.9 %; Lymphocytes % (A) 7.6 %; MCH 30.5 pg (27.0-32.0); MCHC 32.4 g/dL (32.0-37.0); MCV 94.2 fL (80.0-97.0); Mean Platelet Volume 10.3 fL (9.5-12.2); Monocytes # (A) 1.29 X 10*3/uL (0.20-1.00); Monocytes % (A) 8.1 %; NRBC Per 100 WBC 0 /100 WBCS (0.0-0.0); Neutrophils # (A) 13.13 X 10*3/uL (1.80-7.70); Neutrophils % (A) 82.7 %; Platelet Count 563 X 10*3/uL (140-440); RBC 2.92 X 10*6/uL (4.10-5.20); RDW 12.8 % (11.5-14.5); WBC 15.87 X 10*3/uL (4.50-10.00)
[2022-07-26 09:21] LABS: Albumin 2.5 g/dL (3.8-4.9); Albumin/Globulin Ratio 0.99 (1.60-3.17); BUN/Creat Ratio 13.51 Ratio (12.00-20.00); Calcium 8.6 mg/dL (8.7-10.3); Carbon Dioxide 31.6 mmol/L (20.0-27.5); Globulin 2.5 g/dL (1.6-3.3); Non-African American GFR(CKD) 93.1 (60.0-200.0); Potassium 3.9 mmol/L (3.5-5.5); Total Bilirubin 0.5 mg/dL (0.30-1.20)
--- NOTE | 2022-07-26 11:04 | P.PN ---
Subjective Progress Note Date: 07/26/22 This a very pleasant 52-year-old female patient who has a history of anxiety, chronic back pain, chronic neck pain, depression, hypertension, pulmonary embolism. She also has a 40 year history of chronic and ongoing tobacco dependence and chronic obstructive pulmonary disease, severe with an FEV1 value 33% of predicted. She is maintained on Trelegy ellipta, DuoNeb inhalations, pro-air. She also has a known history of a lung mass that had been followed in the outpatient setting. Her most recent CAT scan of the chest was performed at [facility] in the emergency room with complaints of shortness of breath. She was found to have a solid lung nodule measuring 2.4 cm in the left upper lobe medially as well as a nodular density pleural-based measuring 1 cm. Cavitary type masses seen within the left lung apex measuring 2.6 x 2.0 which also could reflect infected left apical bulla. There is noted hepatic masses. She been seen and evaluated by Dr. Walton in our office as a post hospital follow-up. He ordered a PET scan which was performed on 07/16/2022 which did reveal left upper lobe enlarging nodule with increased FDG activity consistent with malignancy. There is also a left pulmonary hilum lymph node with FDG activity. There is multiple centrally necrotic masses within the liver with peripheral metabolic activity. Suspect metastatic from lung. She had been scheduled for a liver biopsy on 08/06/2022. She presented here to the emergency room yesterday with ongoing abdominal pain mostly in the right upper quadrant. White count 16.2. Hemoglobin 10.4. Sodium 131. Potassium 4.1. BUN 7. Creatinine 0.65. AST 43. ALT 13. Amylase less than 30. Lipase 15. Carroll virus not detected. Influenza screen negative. Chest x-ray shows evidence of COPD. Scarring in the upper lobes which is increased slightly compared to old exam. There is a retrosternal mass in the anterior segment left upper lobe. She is seen in consultation in the emergency department. Currently sitting up on the stretcher. Awake and alert in no acute distress. She is maintaining O2 saturations up to 100% on 3 L/m per nasal cannula. She's afebrile. Hemodynamically stable. She is having abdominal distention and discomfort. A computed tomography scan of the abdomen and pelvis reveals a very large hepatic masses measuring up to 14.4 cm which have increased by 1 cm compared to . The largest measured at 14.4 and protrudes against anterior abdominal wall. These occupy significant portion of the hepatic parenchymal. There is also prominent fluid-filled small bowel loops and jejunal fold thickening along the left side of the abdomen. Findings may represent enteritis. Mild abdominal pelvic ascites. The patient is seen today 07/26/2022 on the regular medical floor in follow-up. She is currently sitting up in bed. Awake and alert in no acute distress. Feeling a bit better today compared to yesterday. Still with some abdominal discomfort. Still with some cough and congestion. She is maintaining O2 saturations in the mid 90s on 3 L/m per nasal cannula. Afebrile. White count 15.8. Hemoglobin 8.9. Sodium 135. Potassium 3.9. BUN 10. Creatinine 0.7. Amylase less than 30. Lipase 15. AST 60. ALT 10. Alk phos 293. She is continued on Symbicort, DuoNeb inhalations, IV Solu-Medrol. Pain is adequately controlled. Objective - Vital Signs Vital signs: Vital Signs Temp 98.1 F 07/26/22 05:00 Pulse 112 H 07/26/22 05:00 Resp 16 07/26/22 05:00 BP 98/70 07/26/22 05:00 Pulse Ox 96 07/26/22 05:00 FiO2 Intake & Output 07/25/22 07/26/22 07/26/22 18:59 06:59 18:59 Intake Total 240 590 Balance 240 590 Weight 49.895 kg Intake: Oral 240 590 Other: Voiding Method Toilet Toilet # Voids 2 2 - Exam GENERAL EXAM: Alert, 52-year-old female, appears older than stated age, currently on 3 L nasal cannula, comfortable in no apparent distress. HEAD: Normocephalic. EYES: Normal reaction of pupils, equal size. NOSE: Clear with pink turbinates. THROAT: No erythema or exudates. NECK: No masses, no JVD. CHEST: No chest wall deformity. LUNGS: Equal air entry with no crackles, wheeze, rhonchi or dullness. Diminished. CVS: S1 and S2 normal with no audible murmur, regular rhythm. ABDOMEN: Positive hepatomegaly, tenderness, distended, normal bowel sounds. SPINE: No scoliosis or deformity SKIN: No rashes CENTRAL NERVOUS SYSTEM: No focal deficits, tone is normal in all 4 extremities. EXTREMITIES: There is no peripheral edema. No clubbing, no cyanosis. Peripheral pulses are intact. - Labs CBC & Chem 7: 07/26/22 04:38 07/26/22 04:38 Labs: Abnormal Lab Results - Last 24 Hours (Table) 07/25/22 07/26/22 07/26/22 Range/Units 13:04 04:38 04:38 WBC 15.87 H (4.50-10.00) X 10*3/uL RBC 2.92 L (4.10-5.20) X 10*6/uL Hgb 8.9 L (12.0-15.0) g/dL Hct 27.5 L (37.2-46.3) % Plt Count 563 H (140-440) X 10*3/uL Immature Gran # 0.15 H (0.00-0.04) X 10*3/uL Neutrophils # 13.13 H (1.80-7.70) X 10*3/uL Monocytes # 1.29 H (0.20-1.00) X 10*3/uL PT 12.6 H (9.0-12.0) sec INR 1.2 H (<1.2) Chloride 92 L (96-109) mmol/L Carbon Dioxide 31.6 H (20.0-27.5) mmol/L Glucose 113 H (70-110) mg/dL Calcium 8.6 L (8.7-10.3) mg/dL AST 60 H (13-35) U/L Alkaline Phosphatase 293 H (41-126) U/L Total Protein 5.0 L (6.2-8.2) g/dL Albumin 2.5 L (3.8-4.9) g/dL Albumin/Globulin Ratio 0.99 L (1.60-3.17) g/dL Assessment and Plan Assessment: Abdominal discomfort. Computed tomography scan of the abdomen and pelvis reveals a very large hepatic masses measuring up to 14.4 cm which have increased by 1 cm compared to 07/14/2022. The largest measured at 14.4 and protrudes against anterior abdominal wall. These occupy significant portion of the hepatic parenchymal. There is also prominent fluid-filled small bowel loops and jejunal fold thickening along the left side of the abdomen. Findings may represent enteritis. Mild abdominal pelvic ascites. Lung masses. Her most recent CAT scan of the chest was performed at [facility] in the emergency room with complaints of shortness of breath. She was found to have a solid lung nodule measuring 2.4 cm in the left upper lobe medially as well as a nodular density pleural-based measuring 1 cm. C avitary type masses seen within the left lung apex measuring 2.6 x 2.0 which also could reflect infected left apical bulla. There is noted hepatic masses. PET scan which was performed on 07/16/2022 which did reveal left upper lobe enlarging nodule with increased FDG activity consistent with malignancy. There is also a left pulmonary hilum lymph node with FDG activity. There is multiple centrally necrotic masses within the liver with peripheral metabolic activity. Suspect metastatic from lung. She had been scheduled for a biopsy on 08/06/2022, We have requested IR to perform the procedure this admission if possible. Possible 2.6 cm cystic lesion of the right ovary measuring 3.6 x 2.4 cm. Further characterization with pelvic ultrasound on an emergent basis recommended. Cannot rule out neoplasm. Chronic and ongoing tobacco dependence of approximately 40 years Acute exacerbation of chronic obstructive pulmonary disease, severe with an FEV1 value 33% of predicted Chronic anxiety/depression Chronic neck and back pain History of pulmonary embolism Hyperlipidemia Plan: The patient was seen and evaluated Labs and medications reviewed Add Solu-Medrol 60 mg IV every 6 hours Continue Symbicort, DuoNeb inhalations Continue adequate pain control We will continue to follow I have personally seen and examined the patient, performed the documentation and the assessment and plan as written. Number of minutes spent on the visit: 10.
--- NOTE | 2022-07-26 13:48 | P.PCN ---
Date of Procedure: 07/26/22 Preoperative Diagnosis: liver mass Postoperative Diagnosis: same Procedure(s) Performed: u/s liver biopsy Anesthesia: local Estimated Blood Loss (ml): 1 Pathology: other (to path in formalin) Condition: stable Disposition: no change Operative Findings: 1 pass 18 ga midline anterior left lobe liver mass
--- NOTE | 2022-07-26 14:31 | US ---
EXAMINATION TYPE: US biopsy liver DATE OF EXAM: 07/26/2022 HISTORY: Liver mass. Correlation to CT scan 07/25/2022 FINDINGS: Maximal barrier technique was utilized. Hand hygiene achieved with soap and water and alco hol-based hand rub. The skin overlying a suitable path to the patient's mass in the left lobe of the liver was localized with ultrasound and the overlying skin prepped and draped. Ultrasound was utiliz ed with sterile technique. Lidocaine was used for local anesthesia. A skin jani was made with a sca lpel. An 18-gauge needle was advanced under direct ultrasound guidance and core specimen obtained of the mass. Specimen submitted in formalin to Pathology. Following the procedure, hemostasis achieve d and the patient is discharged in stable condition without complication. IMPRESSION:STATUS POST ULTRASOUND GUIDED CORE BIOPSY OF left lobe liver MASS, PATHOLOGY IS PENDING. THIS PROCEDURE IS PERFORMED BY THE UNDERSIGNED.
[2022-07-26 17:28] VITALS: BMI 18.8
[2022-07-26] MEDS: PRIMIDONE 50 MG TAB PO SCH (22:07)
[2022-07-26] MEDS: traZODone HCL 100 MG TAB PO SCH (22:07)
[2022-07-26] MEDS: DESVENLAFAXINE SUCCINATE 50 MG TAB.ER.24H PO SCH ×2 (22:08)
[2022-07-27] MEDS: NON FORMULARY DRUG (Cariprazine Hcl [Vraylar] 3 MG Capsule) PO SCH ×2 (00:23→20:42)
[2022-07-27] MEDS: methylPREDNISolone SOD SUCCI 125 MG/2 ML VIAL IV SCH ×5 (00:25→23:45)
[2022-07-27] MEDS: oxyCODONE-APAP 7.5-325MG 1 EACH TAB PO PRN ×4 (00:25→23:44)
[2022-07-27] MEDS: HYDROmorphone 1 MG/ML 1 ML SYRINGE IVP PRN ×3 (04:38→13:26)
[2022-07-27] MEDS: IPRATROPIUM-ALBUTEROL 3 ML NEB INHALATION SCH ×4 (07:16→19:15)
[2022-07-27] MEDS: SYMBICORT 160-4.5 MCG INHALER INHALATION SCH ×2 (07:16→19:15)
[2022-07-27] MEDS: GABAPENTIN 300 MG CAP PO SCH ×2 (09:12→20:34)
[2022-07-27] MEDS: OXYBUTYNIN CHLORIDE 5 MG TAB PO SCH ×2 (09:13→20:52)
[2022-07-27] MEDS: FAMOTIDINE 20 MG TAB PO SCH ×2 (10:35→20:34)
--- NOTE | 2022-07-27 11:44 | P.PN ---
Subjective Progress Note Date: 07/27/22 This a very pleasant 52-year-old female patient who has a history of anxiety, chronic back pain, chronic neck pain, depression, hypertension, pulmonary embolism. She also has a 40 year history of chronic and ongoing tobacco dependence and chronic obstructive pulmonary disease, severe with an FEV1 value 33% of predicted. She is maintained on Trelegy ellipta, DuoNeb inhalations, pro-air. She also has a known history of a lung mass that had been followed in the outpatient setting. Her most recent CAT scan of the chest was performed at [facility] in the emergency room with complaints of shortness of breath. She was found to have a solid lung nodule measuring 2.4 cm in the left upper lobe medially as well as a nodular density pleural-based measuring 1 cm. Cavitary type masses seen within the left lung apex measuring 2.6 x 2.0 which also could reflect infected left apical bulla. There is noted hepatic masses. She been seen and evaluated by Dr. Walton in our office as a post hospital follow-up. He ordered a PET scan which was performed on 07/16/2022 which did reveal left upper lobe enlarging nodule with increased FDG activity consistent with malignancy. There is also a left pulmonary hilum lymph node with FDG activity. There is multiple centrally necrotic masses within the liver with peripheral metabolic activity. Suspect metastatic from lung. She had been scheduled for a liver biopsy on 08/06/2022. She presented here to the emergency room yesterday with ongoing abdominal pain mostly in the right upper quadrant. White count 16.2. Hemoglobin 10.4. Sodium 131. Potassium 4.1. BUN 7. Creatinine 0.65. AST 43. ALT 13. Amylase less than 30. Lipase 15. Carroll virus not detected. Influenza screen negative. Chest x-ray shows evidence of COPD. Scarring in the upper lobes which is increased slightly compared to old exam. There is a retrosternal mass in the anterior segment left upper lobe. She is seen in consultation in the emergency department. Currently sitting up on the stretcher. Awake and alert in no acute distress. She is maintaining O2 saturations up to 100% on 3 L/m per nasal cannula. She's afebrile. Hemodynamically stable. She is having abdominal distention and discomfort. A computed tomography scan of the abdomen and pelvis reveals a very large hepatic masses measuring up to 14.4 cm which have increased by 1 cm compared to . The largest measured at 14.4 and protrudes against anterior abdominal wall. These occupy significant portion of the hepatic parenchymal. There is also prominent fluid-filled small bowel loops and jejunal fold thickening along the left side of the abdomen. Findings may represent enteritis. Mild abdominal pelvic ascites. The patient is seen today 07/26/2022 on the regular medical floor in follow-up. She is currently sitting up in bed. Awake and alert in no acute distress. Feeling a bit better today compared to yesterday. Still with some abdominal discomfort. Still with some cough and congestion. She is maintaining O2 saturations in the mid 90s on 3 L/m per nasal cannula. Afebrile. White count 15.8. Hemoglobin 8.9. Sodium 135. Potassium 3.9. BUN 10. Creatinine 0.7. Amylase less than 30. Lipase 15. AST 60. ALT 10. Alk phos 293. She is continued on Symbicort, DuoNeb inhalations, IV Solu-Medrol. Pain is adequately controlled. The patient is seen today 07/27/2022 in follow-up on the regular medical floor. She is awake and alert in no acute distress. She is sitting up in bed. She did undergo a liver biopsy yesterday. She tolerated the procedure well. She denies any worsening shortness of breath, cough or congestion. Still with some abdominal discomfort. She is maintaining O2 saturation in the 90s on 3 L/m per nasal cannula. Afebrile. She remains on DuoNeb inhalations, IV Solu-Medrol and Symbicort. Objective - Vital Signs Vital signs: Vital Signs Temp 98.1 F 07/27/22 09:14 Pulse 118 H 07/27/22 09:14 Resp 15 07/27/22 09:14 BP 99/67 07/27/22 09:14 Pulse Ox 91 L 07/27/22 09:14 FiO2 Intake & Output 07/26/22 07/27/22 07/27/22 18:59 06:59 18:59 Intake Total 590 Balance 590 Weight 49.895 kg Intake: Oral 590 Other: Voiding Method Toilet Toilet # Voids 3 3 - Exam GENERAL EXAM: Alert, 52-year-old female, appears older than stated age, currently on 3 L nasal cannula, comfortable in no apparent distress. HEAD: Normocephalic. EYES: Normal reaction of pupils, equal size. NOSE: Clear with pink turbinates. THROAT: No erythema or exudates. NECK: No masses, no JVD. CHEST: No chest wall deformity. LUNGS: Equal air entry with no crackles, wheeze, rhonchi or dullness. Diminished. CVS: S1 and S2 normal with no audible murmur, regular rhythm. ABDOMEN: Positive hepatomegaly, tenderness, distended, normal bowel sounds. SPINE: No scoliosis or deformity SKIN: No rashes CENTRAL NERVOUS SYSTEM: No focal deficits, tone is normal in all 4 extremities. EXTREMITIES: There is no peripheral edema. No clubbing, no cyanosis. Peripheral pulses are intact. - Labs CBC & Chem 7: 07/26/22 04:38 07/26/22 04:38 Assessment and Plan Assessment: Abdominal discomfort. Computed tomography scan of the abdomen and pelvis reveals a very large hepatic masses measuring up to 14.4 cm which have increased by 1 cm compared to 07/14/2022. The largest measured at 14.4 and protrudes against anterior abdominal wall. These occupy significant portion of the hepatic parenchymal. There is also prominent fluid-filled small bowel loops and jejunal fold thickening along the left side of the abdomen. Findings may represent enteritis. Mild abdominal pelvic ascites. Liver biopsy performed 07/26/2022, pathology pending Lung masses. Her most recent CAT scan of the chest was performed at [facility] in the emergency room with complaints of shortness of breath. She was found to have a solid lung nodule measuring 2.4 cm in the left upper lobe medially as well as a nodular density pleural-based measuring 1 cm. Cavitary type masses seen within the left lung apex measuring 2.6 x 2.0 which also could reflect infected left apical bulla. There is noted hepatic masses. PET scan which was performed on 07/16/2022 which did reveal left upper lobe enlarging nodule with increased FDG activity consistent with malignancy. There is also a left pulmonary hilum lymph node with FDG activity. There is multiple centrally necrotic masses within the liver with peripheral metabolic activity. Suspect metastatic from lung. She had been scheduled for a biopsy on 08/06/2022, We have requested IR to perform the procedure this admission if possible. Possible 2.6 cm cystic lesion of the right ovary measuring 3.6 x 2.4 cm. Further characterization with pelvic ultrasound on an emergent basis gilson mmended. Cannot rule out neoplasm. Chronic and ongoing tobacco dependence of approximately 40 years Acute exacerbation of chronic obstructive pulmonary disease, severe with an FEV1 value 33% of predicted Chronic anxiety/depression Chronic neck and back pain History of pulmonary embolism Hyperlipidemia Plan: The patient was seen and evaluated Stable from the pulmonary standpoint Could be discharged to home Evaluated for home oxygen Continue Symbicort, DuoNeb inhalations Complete a prednisone taper starting at 40 mg daily for 4 days Continue adequate pain control To follow up closely with medical oncology Keep appointment as scheduled 08/17/2022 in our office I have personally seen and examined the patient, performed the documentation and the assessment and plan as written. Number of minutes spent on the visit: 10.
[2022-07-27] MEDS: methocarbamoL 750 MG TAB PO PRN ×2 (13:39→20:52)
--- NOTE | 2022-07-27 16:12 | P.PN ---
Subjective Progress Note Date: 07/27/22 The pt currently looks comfortable. Per Nsg she still reports a pain level of between 5-6 even she appears comfortable. S/P liver biopsy. No f/c/v Objective - Vital Signs Vital signs: Vital Signs Temp 97.6 F 07/27/22 11:52 Pulse 100 07/27/22 15:19 Resp 16 07/27/22 11:52 BP 111/77 07/27/22 11:52 Pulse Ox 95 07/27/22 15:09 FiO2 Intake & Output 07/26/22 07/27/22 07/27/22 18:59 06:59 18:59 Intake Total 590 Balance 590 Weight 49.895 kg Intake: Oral 590 Other: Voiding Method Toilet Toilet # Voids 3 3 - Constitutional General appearance: Present: no acute distress - EENT Eyes: Present: EOMI ENT: Present: hearing grossly normal, normal oropharynx - Respiratory Respiratory: bilateral: CTA - Cardiovascular Rhythm: regular Heart sounds: normal: S1, S2 - Gastrointestinal General gastrointestinal: Present: hepatomegaly (marked, extending into RLQ, epig, crossing midline. Liver margin and surface irreg), soft - Integumentary Integumentary: Present: normal - Neurologic Neurologic: Present: CNII-XII intact - Musculoskeletal Musculoskeletal: Present: generalized weakness, strength equal bilaterally - Psychiatric Psychiatric: Present: A&O x's 3, appropriate affect - Labs CBC & Chem 7: 07/26/22 04:38 07/26/22 04:38 Assessment and Plan (1) Liver mass Narrative/Plan: At this time mets from lung primary is felt to be more likely. Await biopsy results Current Visit: Yes Status: Acute Code(s): R16.0 - HEPATOMEGALY, NOT ELSEWHERE CLASSIFIED SNOMED Code(s): 289189023 (2) Abdominal pain Narrative/Plan: Neoplasm related. The pt is on 2 short acting meds, Dilaudid and Percocet. - D/C Dilaudid in preparation for outpt regimen - Increase dose of Percocet - Depending on Percocet need, add long preparation if needed - D/W pt in detail, as well as Nsg Current Visit: Yes Status: Acute Code(s): R10.9 - UNSPECIFIED ABDOMINAL PAIN SNOMED Code(s): 14687432
[2022-07-27] MEDS: traZODone HCL 100 MG TAB PO SCH (20:34)
[2022-07-27] MEDS: DESVENLAFAXINE SUCCINATE 50 MG TAB.ER.24H PO SCH ×2 (20:51→20:52)
[2022-07-27] MEDS: PRIMIDONE 50 MG TAB PO SCH (21:05)
--- NOTE | 2022-07-27 22:08 | PN ---
PROGRESS NOTE SUBJECTIVE: A 52-year-old white female with lung cancer going to the liver. She is status post liver biopsy today. Waiting for pathology report. Pain is not controlled with Percocet. She needed IV Dilaudid. She wants to stay here over the weekend until pathology is back and start chemo versus radiation treatment next week on Saturday. OBJECTIVE: CARDIOVASCULAR: S1, S2. LUNGS: Scattered rhonchi and wheeze. PSYCH: Fair mood and affect. NEUROLOGIC: Alert and oriented x3. ABDOMEN: Diffuse tenderness, right upper quadrant. ASSESSMENT: Lung cancer, metastases to the liver, intractable abdominal pain, chronic obstructive pulmonary disease, nicotine addiction. Prognosis guarded. Await for pathology report. Pain control. MMODL / IJN: [id number] /
--- NOTE | 2022-07-28 01:50 | PN ---
PROGRESS NOTE SUBJECTIVE: A 52-year-old white female with apparently unclear type of lung cancer radiating into the liver. She has severe pain. She does not think she can go home. She is saturating 95 on 3 L. Pulse is low 100s, temperature 97.6. She wants to stay here until she gets the pathology back. Possibly get radiation and chemo while she is here. Dr. Varela saw her today. She is status post liver biopsy. Pain level between 5 and 6 on Dilaudid as well as Percocet. White count is 15.8, hemoglobin is 8.9. She has hepatomegaly, right upper quadrant swelling. OBJECTIVE: INTEGUMENT: Dry skin turgor. NEUROLOGIC: Cranial nerves intact. PSYCH: Fair mood and affect. ASSESSMENT: Mets in lung, primary into the liver with liver mass, awaiting biopsies, chronic abdominal pain, neoplasm related. She is on Dilaudid, Percocet. Increase Percocet. We have to control her pain. Wait for biopsy report to come back and then possibly give radiation and chemo while she is here on Saturday. MMODL / IJN: [id number] /
[2022-07-28] MEDS: methylPREDNISolone SOD SUCCI 125 MG/2 ML VIAL IV SCH (04:42)
[2022-07-28] MEDS: oxyCODONE-APAP 7.5-325MG 1 EACH TAB PO PRN ×5 (04:42→21:43)
[2022-07-28] MEDS: SYMBICORT 160-4.5 MCG INHALER INHALATION SCH ×2 (07:49→19:18)
[2022-07-28] MEDS: IPRATROPIUM-ALBUTEROL 3 ML NEB INHALATION SCH ×4 (07:49→19:18)
[2022-07-28] MEDS: GABAPENTIN 300 MG CAP PO SCH ×2 (09:32→20:54)
[2022-07-28] MEDS: FAMOTIDINE 20 MG TAB PO SCH ×2 (09:32→20:54)
[2022-07-28] MEDS: OXYBUTYNIN CHLORIDE 5 MG TAB PO SCH ×2 (09:33→20:55)
--- NOTE | 2022-07-28 11:16 | P.PN ---
Subjective Progress Note Date: 07/28/22 This a very pleasant 52-year-old female patient who has a history of anxiety, chronic back pain, chronic neck pain, depression, hypertension, pulmonary embolism. She also has a 40 year history of chronic and ongoing tobacco dependence and chronic obstructive pulmonary disease, severe with an FEV1 value 33% of predicted. She is maintained on Trelegy ellipta, DuoNeb inhalations, pro-air. She also has a known history of a lung mass that had been followed in the outpatient setting. Her most recent CAT scan of the chest was performed at [facility] in the emergency room with complaints of shortness of breath. She was found to have a solid lung nodule measuring 2.4 cm in the left upper lobe medially as well as a nodular density pleural-based measuring 1 cm. Cavitary type masses seen within the left lung apex measuring 2.6 x 2.0 which also could reflect infected left apical bulla. There is noted hepatic masses. She been seen and evaluated by Dr. Walton in our office as a post hospital follow-up. He ordered a PET scan which was performed on 07/16/2022 which did reveal left upper lobe enlarging nodule with increased FDG activity consistent with malignancy. There is also a left pulmonary hilum lymph node with FDG activity. There is multiple centrally necrotic masses within the liver with peripheral metabolic activity. Suspect metastatic from lung. She had been scheduled for a liver biopsy on 08/06/2022. She presented here to the emergency room yesterday with ongoing abdominal pain mostly in the right upper quadrant. White count 16.2. Hemoglobin 10.4. Sodium 131. Potassium 4.1. BUN 7. Creatinine 0.65. AST 43. ALT 13. Amylase less than 30. Lipase 15. Carroll virus not detected. Influenza screen negative. Chest x-ray shows evidence of COPD. Scarring in the upper lobes which is increased slightly compared to old exam. There is a retrosternal mass in the anterior segment left upper lobe. She is seen in consultation in the emergency department. Currently sitting up on the stretcher. Awake and alert in no acute distress. She is maintaining O2 saturations up to 100% on 3 L/m per nasal cannula. She's afebrile. Hemodynamically stable. She is having abdominal distention and discomfort. A computed tomography scan of the abdomen and pelvis reveals a very large hepatic masses measuring up to 14.4 cm which have increased by 1 cm compared to . The largest measured at 14.4 and protrudes against anterior abdominal wall. These occupy significant portion of the hepatic parenchymal. There is also prominent fluid-filled small bowel loops and jejunal fold thickening along the left side of the abdomen. Findings may represent enteritis. Mild abdominal pelvic ascites. The patient is seen today 07/26/2022 on the regular medical floor in follow-up. She is currently sitting up in bed. Awake and alert in no acute distress. Feeling a bit better today compared to yesterday. Still with some abdominal discomfort. Still with some cough and congestion. She is maintaining O2 saturations in the mid 90s on 3 L/m per nasal cannula. Afebrile. White count 15.8. Hemoglobin 8.9. Sodium 135. Potassium 3.9. BUN 10. Creatinine 0.7. Amylase less than 30. Lipase 15. AST 60. ALT 10. Alk phos 293. She is continued on Symbicort, DuoNeb inhalations, IV Solu-Medrol. Pain is adequately controlled. The patient is seen today 07/27/2022 in follow-up on the regular medical floor. She is awake and alert in no acute distress. She is sitting up in bed. She did undergo a liver biopsy yesterday. She tolerated the procedure well. She denies any worsening shortness of breath, cough or congestion. Still with some abdominal discomfort. She is maintaining O2 saturation in the 90s on 3 L/m per nasal cannula. Afebrile. She remains on DuoNeb inhalations, IV Solu-Medrol and Symbicort. The patient is seen today 07/28/2022 in follow-up on the regular medical floor. She is resting comfortably in bed. Awake and alert in no acute distress. No significant events overnight. No worsening shortness of breath cough or congestion. She is feeling better. No nausea. Eating breakfast. No new labs today. Liver biopsy results pending. Continued on DuoNeb inhalations, Symbicort, IV Solu-Medrol. Objective - Vital Signs Vital signs: Vital Signs Temp 98 F 07/28/22 04:48 Pulse 90 07/28/22 04:48 Resp 16 07/28/22 04:48 BP 116/79 07/28/22 04:48 Pulse Ox 91 L 07/28/22 04:48 FiO2 Intake & Output 07/27/22 07/28/22 07/28/22 18:59 06:59 18:59 Intake Total 540 Balance 540 Intake: Oral 540 Other: Voiding Method Toilet Toilet Toilet # Voids 4 4 - Exam GENERAL EXAM: Alert, 52-year-old female, on 3 L nasal cannula, comfortable in no apparent distress. HEAD: Normocephalic. EYES: Normal reaction of pupils, equal size. NOSE: Clear with pink turbinates. THROAT: No erythema or exudates. NECK: No masses, no JVD. CHEST: No chest wall deformity. LUNGS: Equal air entry with no crackles, wheeze, rhonchi or dullness. Diminished. CVS: S1 and S2 normal with no audible murmur, regular rhythm. ABDOMEN: Positive hepatomegaly, tenderness, distended, normal bowel sounds. SPINE: No scoliosis or deformity SKIN: No rashes CENTRAL NERVOUS SYSTEM: No focal deficits, tone is normal in all 4 extremities. EXTREMITIES: There is no peripheral edema. No clubbing, no cyanosis. Peripheral pulses are intact. - Labs CBC & Chem 7: 07/26/22 04:38 07/26/22 04:38 Assessment and Plan Assessment: Abdominal discomfort. Computed tomography scan of the abdomen and pelvis reveals a very large hepatic masses measuring up to 14.4 cm which have increased by 1 cm compared to 07/14/2022. The largest measured at 14.4 and protrudes against anterior abdominal wall. These occupy significant portion of the hepatic parenchymal. There is also prominent fluid-filled small bowel loops and jejunal fold thickening along the left side of the abdomen. Findings may represent enteritis. Mild abdominal pelvic ascites. Liver biopsy performed 07/26/2022, pathology pending Lung masses. Her most recent CAT scan of the chest was performed at [facility] in the emergency room with complaints of shortness of breath. She was found to have a solid lung nodule measuring 2.4 cm in the left upper lobe medially as well as a nodular density pleural-based measuring 1 cm. Cavitary type masses seen within the left lung apex measuring 2.6 x 2.0 which also could reflect infected left apical bulla. There is noted hepatic masses. PET scan which was performed on 07/16/2022 which did reveal left upper lobe enlarging nodule with increased FDG activity consistent with malignancy. There is also a left pulmonary hilum lymph node with FDG activity. There is multiple centrally necrotic masses within the liver with peripheral metabolic activity. Suspect metastatic from lung. Liver biopsy performed 07/26/2022, pathology pending Possible 2.6 cm cystic lesion of the right ovary measuring 3.6 x 2.4 cm. Further characterization with pelvic ultrasound on an emergent basis recommended. Cannot rule out neoplasm. Chronic and ongoing tobacco dependence of approximately 40 years Acute exacerbation of chronic obstructive pulmonary disease, severe with an FEV1 value 33% of predicted Chronic anxiety/depression Chronic neck and back pain History of pulmonary embolism Hyperlipidemia Plan: The patient was seen and evaluated Could be discharged to home Evaluated for home oxygen Continue her home Trelegy, ProAir, DuoNeb inhalations Complete a prednisone taper starting at 40 mg daily for 4 days Keep appointment as scheduled 08/17/2022 in our office I have personally seen and examined the patient, performed the documentation and the assessment and plan as written. Number of minutes spent on the visit: 10.
[2022-07-28] MEDS ORDERED: predniSONE 20 MG TAB PO STA (11:45)
[2022-07-28 12:53] LABS: HCT 27.1 % (37.2-46.3); HGB 8.7 g/dL (12.0-15.0); MCH 30.3 pg (27.0-32.0); MCHC 32.1 g/dL (32.0-37.0); MCV 94.4 fL (80.0-97.0); NRBC Per 100 WBC 0 /100 WBCS (0.0-0.0); Platelet Count 596 X 10*3/uL (140-440); RBC 2.87 X 10*6/uL (4.10-5.20); RDW 12.5 % (11.5-14.5); WBC 23.35 X 10*3/uL (4.50-10.00)
[2022-07-28 13:04] LABS: African American GFR (CKD) 115.5 (60.0-200.0); Albumin 2.6 g/dL (3.8-4.9); Albumin/Globulin Ratio 1.04 (1.60-3.17); Anion Gap 6.9 mmol/L (10.00-18.00); BUN/Creat Ratio 18.71 Ratio (12.00-20.00); Blood Urea Nitrogen 13.1 mg/dL (9.0-27.0); Calcium 8.7 mg/dL (8.7-10.3); Carbon Dioxide 32.1 mmol/L (20.0-27.5); Globulin 2.5 g/dL (1.6-3.3); Non-African American GFR(CKD) 99.6 (60.0-200.0); Potassium 4.9 mmol/L (3.5-5.5); Total Bilirubin 0.3 mg/dL (0.30-1.20); Total Protein 5.1 g/dL (6.2-8.2)
[2022-07-28 13:45] LABS: Acanthocytes 2+; Basophils # (A) 0.02 X 10*3/uL (0.00-0.10); Basophils % (A) 0.1 %; Eosinophils # (A) 0 X 10*3/uL (0.04-0.35); Eosinophils % (A) 0 %; Immature Grans, Automated 0.7 %; Lymphocytes % (A) 2.1 %; Monocytes % (A) 1.7 %; Neutrophils # (A) 22.27 X 10*3/uL (1.80-7.70); Neutrophils % (A) 95.4 %
[2022-07-28] MEDS: polyethylene glycoL 3350 17 GM POWD.PACK PO SCH (14:03)
[2022-07-28] MEDS: DOCUSATE 100 MG CAP PO SCH ×2 (14:03→21:43)
--- NOTE | 2022-07-28 14:37 | P.PN ---
Subjective Progress Note Date: 07/28/22 Principal diagnosis: Abdominal pain secondary to likely liver metastasis -No acute events overnight -Reports her pain is much better than on initial presentation -She notes that she is having increased pain before the 6 hour markers for when she is due for her Percocet -She is eating and drinking without nausea or vomiting -She has not yet had a bowel movement this admission Objective - Vital Signs Vital signs: Vital Signs Temp 98.5 F 07/28/22 11:14 Pulse 90 07/28/22 11:44 Resp 16 07/28/22 11:14 BP 111/72 07/28/22 11:14 Pulse Ox 94 L 07/28/22 11:14 FiO2 Intake & Output 07/27/22 07/28/22 07/28/22 18:59 06:59 18:59 Intake Total 540 Balance 540 Intake: Oral 540 Other: Voiding Method Toilet Toilet Toilet # Voids 4 4 - Constitutional General appearance: Present: average body habitus, no acute distress - EENT Eyes: Present: EOMI - Respiratory Respiratory: bilateral: CTA - Cardiovascular Rhythm: regular Heart sounds: normal: S1, S2 - Gastrointestinal General gastrointestinal: Present: distended, hepatomegaly, tenderness Localized gastrointestinal: tender: epigastric periumbilical (Palpable hepatomegaly in the right upper quadrant extending to the midline) - Integumentary Integumentary: Absent: rash - Neurologic Neurologic: Present: CNII-XII intact. Absent: focal deficits - Labs CBC & Chem 7: 07/28/22 06:43 07/28/22 06:43 Labs: Abnormal Lab Results - Last 24 Hours (Table) 07/28/22 07/28/22 Range/Units 06:43 06:43 WBC 23.35 H (4.50-10.00) X 10*3/uL RBC 2.87 L (4.10-5.20) X 10*6/uL Hgb 8.7 L (12.0-15.0) g/dL Hct 27.1 L (37.2-46.3) % Plt Count 596 H (140-440) X 10*3/uL Plt Count Comment INCREASED A Immature Gran # 0.16 H (0.00-0.04) X 10*3/uL Neutrophils # 22.27 H (1.80-7.70) X 10*3/uL Lymphocytes # 0.50 L (0.90-5.00) X 10*3/uL Eosinophils # 0 L (0.04-0.35) X 10*3/uL Sodium 132 L (135-145) mmol/L Chloride 93 L (96-109) mmol/L Carbon Dioxide 32.1 H (20.0-27.5) mmol/L Anion Gap 6.90 L (10.00-18.00) mmol/L Glucose 119 H (70-110) mg/dL AST 62 H (13-35) U/L Alkaline Phosphatase 332 H (41-126) U/L Total Protein 5.1 L (6.2-8.2) g/dL Albumin 2.6 L (3.8-4.9) g/dL Albumin/Globulin Ratio 1.04 L (1.60-3.17) g/dL Assessment and Plan Assessment: Ms. Lui is a 52-year-old woman with a past medical history significant for COPD and cigarette smoking who presented with progressive abdominal pain and nausea. PET/CT on 07/16/[address] abdomen and pelvis on 07/25/2022 who has noted multiple large hepatic masses concerning for metastatic disease. Based on the findings of the PET/CT, she has radiographic evidence concerning for primary lung malignancy with metastasis to the liver. (1) Abdominal pain Current Visit: Yes Status: Acute Code(s): R10.9 - UNSPECIFIED ABDOMINAL PAIN SNOMED Code(s): 82152048 (2) Liver mass Current Visit: Yes Status: Acute Code(s): R16.0 - HEPATOMEGALY, NOT ELSEWHERE CLASSIFIED SNOMED Code(s): 508450938 Plan: #Liver masses -She is noted to have multiple large hepatic masses in both the right and left hepatic lobes on PET CT along with CT abdomen and pelvis on admission -Given the finding of a primary left upper lobe nodule along with left hilar lymphadenopathy, this is suspicious for primary lung cancer with metastasis to the liver -This clinical suspicion was discussed with Ms. Lui, who was already aware of the findings of PET/CT -Underwent percutaneous liver biopsy with interventional radiology on 07/26/2022 -We will follow-up results of pathology -If indeed a metastatic lung cancer is confirmed with biopsy, she will also need a brain MRI to complete the full staging workup #Abdominal pain -Secondary to likely metastatic liver masses noted above -Her pain is currently improved from admission -She was transitioned from dilaudid 1 mg IV every 3 hours to Percocet 7.5/325 every 6 hours as needed -She is having breakthrough pain about 2 hours for she is due for her next Percocet -We will increase Percocet from every 6 hours every 4 hours as needed -We will then transition her to long-acting pain medication based on her requirements -Colace twice a day along with MiraLAX daily added for bowel regimen given this is what she takes at home
[2022-07-28] MEDS: traZODone HCL 100 MG TAB PO SCH (20:54)
[2022-07-28] MEDS: PRIMIDONE 50 MG TAB PO SCH (20:54)
[2022-07-28] MEDS: DESVENLAFAXINE SUCCINATE 50 MG TAB.ER.24H PO SCH ×2 (20:55)
[2022-07-28] MEDS: NON FORMULARY DRUG (Cariprazine Hcl [Vraylar] 3 MG Capsule) PO SCH (21:02)
[2022-07-29] MEDS: oxyCODONE-APAP 7.5-325MG 1 EACH TAB PO PRN ×4 (02:02→15:34)
[2022-07-29] MEDS: IPRATROPIUM-ALBUTEROL 3 ML NEB INHALATION SCH ×4 (07:24→19:50)
[2022-07-29] MEDS: SYMBICORT 160-4.5 MCG INHALER INHALATION SCH ×2 (07:25→19:50)
[2022-07-29] MEDS: FAMOTIDINE 20 MG TAB PO SCH ×2 (08:37→21:12)
[2022-07-29] MEDS: predniSONE 20 MG TAB PO SCH (08:37)
[2022-07-29] MEDS: DOCUSATE 100 MG CAP PO SCH ×2 (08:37→21:12)
[2022-07-29] MEDS: GABAPENTIN 300 MG CAP PO SCH ×2 (08:37→21:12)
[2022-07-29] MEDS: polyethylene glycoL 3350 17 GM POWD.PACK PO SCH (08:37)
[2022-07-29] MEDS: OXYBUTYNIN CHLORIDE 5 MG TAB PO SCH ×2 (08:38→21:13)
--- NOTE | 2022-07-29 10:35 | P.PN ---
Subjective Progress Note Date: 07/29/22 Principal diagnosis: Abdominal pain, etiology is not clear however Suspect stage IV metastatic lung cancer This a very pleasant 52-year-old female patient who has a history of anxiety, chronic back pain, chronic neck pain, depression, hypertension, pulmonary embolism. She also has a 40 year history of chronic and ongoing tobacco dependence and chronic obstructive pulmonary disease, severe with an FEV1 value 33% of predicted. She is maintained on Trelegy ellipta, DuoNeb inhalations, pro-air. She also has a known history of a lung mass that had been followed in the outpatient setting. Her most recent CAT scan of the chest was performed at [facility] in the emergency room with complaints of shortness of breath. She was found to have a solid lung nodule measuring 2.4 cm in the left upper lobe medially as well as a nodular density pleural-based measuring 1 cm. Cavitary type masses seen within the left lung apex measuring 2.6 x 2.0 which also could reflect infected left apical bulla. There is noted hepatic masses. She been seen and evaluated by Dr. Walton in our office as a post hospital follow-up. He ordered a PET scan which was performed on 07/16/2022 which did reveal left upper lobe enlarging nodule with increased FDG activity consistent with malignancy. There is also a left pulmonary hilum lymph node with FDG activity. There is multiple centrally necrotic masses within the liver with peripheral metabolic activity. Suspect metastatic from lung. She had been scheduled for a liver biopsy on 08/06/2022. She presented here to the emergency room yesterday with ongoing abdominal pain mostly in the right upper quadrant. White count 16.2. Hemoglobin 10.4. Sodium 131. Potassium 4.1. BUN 7. Creatinine 0.65. AST 43. ALT 13. Amylase less than 30. Lipase 15. Carroll virus not detected. Influenza screen negative. Chest x-ray shows evidence of COPD. Scarring in the upper lobes which is increased slightly compared to old exam. There is a retrosternal mass in the anterior segment left upper lobe. She is seen in consultation in the emergency department. Currently sitting up on the stretcher. Awake and alert in no acute distress. She is maintaining O2 saturations up to 100% on 3 L/m per nasal cannula. She's afebrile. Hemodynamically stable. She is having abdominal distention and discomfort. A computed tomography scan of the abdomen and pelvis reveals a very large hepatic masses measuring up to 14.4 cm which have increased by 1 cm compared to 07/14/2022. The largest measured at 14.4 and protrudes against anterior abdominal wall. These occupy significant portion of the hepatic parenchymal. There is also prominent fluid-filled small bowel loops and jejunal fold thickening along the left side of the abdomen. Findings may represent enteritis. Mild abdominal pelvic ascites. The patient is seen today 07/26/2022 on the regular medical floor in follow-up. She is currently sitting up in bed. Awake and alert in no acute distress. Feeling a bit better today compared to yesterday. Still with some abdominal discomfort. Still with some cough and congestion. She is maintaining O2 saturations in the mid 90s on 3 L/m per nasal cannula. Afebrile. White count 15.8. Hemoglobin 8.9. Sodium 135. Potassium 3.9. BUN 10. Creatinine 0.7. Amylase less than 30. Lipase 15. AST 60. ALT 10. Alk phos 293. She is continued on Symbicort, DuoNeb inhalations, IV Solu-Medrol. Pain is adequately controlled. The patient is seen today 07/27/2022 in follow-up on the regular medical floor. She is awake and alert in no acute distress. She is sitting up in bed. She did undergo a liver biopsy yesterday. She tolerated the procedure well. She denies any worsening shortness of breath, cough or congestion. Still with some abdominal discomfort. She is maintaining O2 saturation in the 90s on 3 L/m per nasal cannula. Afebrile. She remains on DuoNeb inhalations, IV Solu-Medrol and Symbicort. The patient is seen today 07/28/2022 in follow-up on the regular medical floor. She is resting comfortably in bed. Awake and alert in no acute distress. No significant events overnight. No worsening shortness of breath cough or congestion. She is feeling better. No nausea. Eating breakfast. No new labs today. Liver biopsy results pending. Continued on DuoNeb inhalations, Symbicort, IV Solu-Medrol. Reevaluated today on 07/29/22, continues to have intermittent episodes of abdominal pain and nausea, but no vomiting. Obviously considering her abdominal pain, the patient is "not quite ready for discharge planning, and she is being followed by many consultants including oncology. Her core liver biopsy results are pending. Pulmonary-lay no cough no wheezing no shortness of breath Objective - Vital Signs Vital signs: Vital Signs Temp 98.2 F 07/29/22 04:23 Pulse 89 07/29/22 07:35 Resp 18 07/29/22 04:23 BP 104/70 07/29/22 04:23 Pulse Ox 96 07/29/22 04:23 FiO2 Intake & Output 07/28/22 07/29/22 07/29/22 18:59 06:59 18:59 Other: Voiding Method Toilet # Voids 3 - Exam Physical Exam: Revealed a 52-year-old female in no distress Head: Atraumatic normocephalic HEENT:[Neck is supple.] [No neck masses.] [No thyromegaly.] [No JVD.] Chest: Diminished breath sounds at the bases no rhonchi and no wheezes Cardiac Exam: [Normal S1 and S2, no S3 gallop, no murmur.] Abdomen: [Soft, globular, slightly tender on palpation,, positive enlarged liver, no rebound, no guarding, normal bowel sounds.] Extremities: [No clubbing, no edema, no cyanosis.] Neurological Exam: [No focal neurologic deficit.] Alert oriented 3. Skin: No rashes Musculoskeletal: No deformities and no limitation in range of motion - Labs CBC & Chem 7: 07/28/22 06:43 07/28/22 06:43 Labs: Abnormal Lab Results - Last 24 Hours (Table) 07/28/22 07/28/22 Range/Units 06:43 06:43 WBC 23.35 H (4.50-10.00) X 10*3/uL RBC 2.87 L (4.10-5.20) X 10*6/uL Hgb 8.7 L (12.0-15.0) g/dL Hct 27.1 L (37.2-46.3) % Plt Count 596 H (140-440) X 10*3/uL Plt Count Comment INCREASED A Immature Gran # 0.16 H (0.00-0.04) X 10*3/uL Neutrophils # 22.27 H (1.80-7.70) X 10*3/uL Lymphocytes # 0.50 L (0.90-5.00) X 10*3/uL Eosinophils # 0 L (0.04-0.35) X 10*3/uL Sodium 132 L (135-145) mmol/L Chloride 93 L (96-109) mmol/L Carbon Dioxide 32.1 H (20.0-27.5) mmol/L Anion Gap 6.90 L (10.00-18.00) mmol/L Glucose 119 H (70-110) mg/dL AST 62 H (13-35) U/L Alkaline Phosphatase 332 H (41-126) U/L Total Protein 5.1 L (6.2-8.2) g/dL Albumin 2.6 L (3.8-4.9) g/dL Albumin/Globulin Ratio 1.04 L (1.60-3.17) g/dL Assessment and Plan Assessment: Impression: Abdominal pain, most likely secondary to metastatic lung disease to liver Suspect metastatic lung cancer Chronic obstructive pulmonary disease Acute exacerbation of COPD, improving Generalized anxiety disorder Remote history of pulmonary embolism Dyslipidemia Recommendation: Continue pain meds Continue bronchodilators Awaiting liver biopsy report Continue prednisone and taper on outpatient basis We will continue to follow Time with Patient: Less than 30
[2022-07-29 11:27] LABS: Basophils # (A) 0.02 X 10*3/uL (0.00-0.10); Basophils % (A) 0.1 %; Eosinophils # (A) 0 X 10*3/uL (0.04-0.35); Eosinophils % (A) 0 %; HCT 28.8 % (37.2-46.3); HGB 9.3 g/dL (12.0-15.0); Immature Grans, Automated 0.7 %; Lymphocytes # (A) 0.63 X 10*3/uL (0.90-5.00); MCH 30.5 pg (27.0-32.0); MCHC 32.3 g/dL (32.0-37.0); MCV 94.4 fL (80.0-97.0); Mean Platelet Volume 9.9 fL (9.5-12.2); Monocytes % (A) 5.2 %; NRBC Per 100 WBC 0 /100 WBCS (0.0-0.0); Neutrophils # (A) 19.37 X 10*3/uL (1.80-7.70); Platelet Count 659 X 10*3/uL (140-440); RBC 3.05 X 10*6/uL (4.10-5.20); RDW 12.8 % (11.5-14.5); WBC 21.26 X 10*3/uL (4.50-10.00)
[2022-07-29 11:58] LABS: African American GFR (CKD) 115.5 (60.0-200.0); Anion Gap 6.5 mmol/L (10.00-18.00); BUN/Creat Ratio 23.71 Ratio (12.00-20.00); Blood Urea Nitrogen 16.6 mg/dL (9.0-27.0); Calcium 8.5 mg/dL (8.7-10.3); Carbon Dioxide 31.5 mmol/L (20.0-27.5); Non-African American GFR(CKD) 99.6 (60.0-200.0); Potassium 4.8 mmol/L (3.5-5.5)
--- NOTE | 2022-07-29 13:27 | P.PN ---
Subjective Progress Note Date: 07/29/22 Principal diagnosis: Abdominal pain secondary to likely liver metastasis -No acute events overnight -Has required a total of 45 mg of oxycodone over the past 24 hours since increa sing frequency from every 6 hours every 4 hours as needed -Abdominal pain persists without nausea or vomiting currently -She is currently trying to eat lunch and does have ensure dietary supplement on her lunch tray -She has not had a bowel movement since starting Colace and MiraLAX Objective - Vital Signs Vital signs: Vital Signs Temp 98.1 F 07/29/22 11:23 Pulse 93 07/29/22 11:23 Resp 16 07/29/22 11:23 BP 107/76 07/29/22 11:23 Pulse Ox 93 L 07/29/22 11:23 FiO2 Intake & Output 07/28/22 07/29/22 07/29/22 18:59 06:59 18:59 Other: Voiding Method Toilet Toilet # Voids 3 - Exam Seed upright and attempting to eat lunch, appears more comfortable - Constitutional General appearance: Present: average body habitus, cooperative, no acute distress - EENT Eyes: Present: EOMI - Respiratory Respiratory: bilateral: diminished, negative: dullness, rales, rhonchi, wheezing - Cardiovascular Rhythm: regular - Gastrointestinal General gastrointestinal: Present: distended, hepatomegaly, normal bowel sounds, tenderness Localized gastrointestinal: mass: RUQ, epigastric periumbilical (Hepatomegaly extending from the right upper quadrant to the periumbilical region) - Neurologic Neurologic: Present: CNII-XII intact. Absent: focal deficits - Psychiatric Psychiatric: Present: appropriate affect - Labs CBC & Chem 7: 07/29/22 07:30 07/29/22 07:30 Labs: Abnormal Lab Results - Last 24 Hours (Table) 07/28/22 07/29/22 07/29/22 Range/Units 06:43 07:30 07:30 WBC 21.26 H (4.50-10.00) X 10*3/uL RBC 3.05 L (4.10-5.20) X 10*6/uL Hgb 9.3 L (12.0-15.0) g/dL Hct 28.8 L (37.2-46.3) % Plt Count 659 H (140-440) X 10*3/uL Plt Count Comment INCREASED A Immature Gran # 0.16 H 0.14 H (0.00-0.04) X 10*3/uL Neutrophils # 22.27 H 19.37 H (1.80-7.70) X 10*3/uL Lymphocytes # 0.50 L 0.63 L (0.90-5.00) X 10*3/uL Monocytes # 1.10 H (0.20-1.00) X 10*3/uL Eosinophils # 0 L 0 L (0.04-0.35) X 10*3/uL Sodium 129 L (135-145) mmol/L Chloride 91 L (96-109) mmol/L Carbon Dioxide 31.5 H (20.0-27.5) mmol/L Anion Gap 6.50 L (10.00-18.00) mmol/L BUN/Creatinine Ratio 23.71 H (12.00-20.00) Ratio Calcium 8.5 L (8.7-10.3) mg/dL Assessment and Plan Assessment: Ms. Lui is a 52-year-old woman with a past medical history significant for COPD and cigarette smoking who presented with progressive abdominal pain and nausea. PET/CT on 07/16/[address] abdomen and pelvis on 07/25/2022 who has noted multiple large hepatic masses concerning for metastatic disease. Based on the findings of the PET/CT, she has radiographic evidence concerning for primary lung malignancy with metastasis to the liver. (1) Abdominal pain Current Visit: Yes Status: Acute Code(s): R10.9 - UNSPECIFIED ABDOMINAL PAIN SNOMED Code(s): 83499257 (2) Liver mass Current Visit: Yes Status: Acute Code(s): R16.0 - HEPATOMEGALY, NOT ELSEWHERE CLASSIFIED SNOMED Code(s): 275669812 (3) Normocytic anemia Current Visit: Yes Status: Acute Code(s): D64.9 - ANEMIA, UNSPECIFIED SNOMED Code(s): 408908822 (4) Neutrophilic leukocytosis Current Visit: Yes Status: Acute Code(s): D72.9 - DISORDER OF WHITE BLOOD CELLS, UNSPECIFIED SNOMED Code(s): 595627360 Plan: #Liver masses -She is noted to have multiple large hepatic masses in both the right and left hepatic lobes on PET CT along with CT abdomen and pelvis on admission -Given the finding of a primary left upper lobe nodule along with left hilar lymphadenopathy, this is suspicious for primary lung cancer with metastasis to the liver -This clinical suspicion was discussed with Ms. Hu, who was already aware of the findings of PET/CT -Underwent percutaneous liver biopsy with interventional radiology on 07/26/2022 -We will follow-up results of pathology -If indeed a metastatic lung cancer is confirmed with biopsy, she will also need a brain MRI to complete the full staging workup #Abdominal pain -Secondary to likely metastatic liver masses noted above -Her pain is currently improved from admission -She was transitioned from dilaudid 1 mg IV every 3 hours to Percocet 7.5/325 every 6 hours as needed -She is having breakthrough pain about 2 hours for she is due for her next P ercocet -She has required a total of 45 mg of oxycodone over the past 24 hours -Morphine 30 mg extended release twice daily added to her pain regimen starting tonight in addition to oxycodone when necessary. This was discussed with pharmacy, who are in agreement with this plan -Continue colace twice a day along with MiraLAX daily added for bowel regimen -We discussed makes mixing dietary supplement with ice cream to help make this more peeling #Normocytic normochromic anemia -Hemoglobin 9.3 this morning with normal MCV -Previous hemoglobins as recently as February 2022 have been within normal range -Given her heavy disease burden for malignancy, I anticipate this is likely anemia of inflammation -Ferritin, iron studies, vitamin B12, and folate ordered for tomorrow to rule out potential nutritional etiologies given her anorexia #Neutrophilic leukocytosis -Likely secondary to Solu-Medrol and now prednisone per pulmonology for COPD -She has no evidence of infection at this time -Continue to monitor
--- NOTE | 2022-07-29 16:58 | PN ---
PROGRESS NOTE DATE OF SERVICE: 07/28/2022 SUBJECTIVE: This 52-year-old woman, who was admitted with abdominal discomfort, had a significant large hepatic mass and multiple lung masses also. The biopsies are pending at this time. No chest pain. No palpitations. No fever. OBJECTIVE: VITAL SIGNS: Pulse is 70, blood pressure is 111/78, respirations 16. HEENT: Conjunctivae normal. NECK: No JVD. CARDIOVASCULAR: S1, S2. RESPIRATION: Breath sounds diminished at the bases. ABDOMEN: Soft. Hepatomegaly present. NERVOUS SYSTEM: Nonfocal. LABORATORY DATA: Reviewed. Hemoglobin 8.7. ASSESSMENT: 1. Large hepatomegaly and lung masses, status post biopsy. 2. Chronic obstructive pulmonary disease acute exacerbation. 3. Anxiety and depression. 4. Multiple medical issues. RECOMMENDATIONS: I recommend to continue current medications and symptomatic treatment. Otherwise at this time, I would recommend repeat labs in the morning and closely follow with Pulmonary and Hematology/Oncology. Guarded prognosis. Further recommendations to follow. MMODL / IJN: [id number] /
[2022-07-29] MEDS ORDERED: HYDROmorphone 0.5 MG/0.5 ML SYRINGE IVP PRN (17:55)
[2022-07-29] MEDS: traZODone HCL 100 MG TAB PO SCH (21:12)
[2022-07-29] MEDS: MORPHINE SULFATE ER 30 MG TABLET PO SCH (21:12)
[2022-07-29] MEDS: PRIMIDONE 50 MG TAB PO SCH (21:13)
[2022-07-29] MEDS: DESVENLAFAXINE SUCCINATE 50 MG TAB.ER.24H PO SCH ×2 (21:13)
[2022-07-29] MEDS: NON FORMULARY DRUG (Cariprazine Hcl [Vraylar] 3 MG Capsule) PO SCH (21:15)
--- NOTE | 2022-07-30 04:25 | PN ---
PROGRESS NOTE DATE OF SERVICE: 07/29/2022 SUBJECTIVE: This 52-year-old woman, who was admitted with large hepatomegaly and lung mass, had biopsy. Patient complaining of severe abdominal pain. No chest pain. No palpitations. No fever. Oncology following the patient closely. PHYSICAL EXAMINATION: VITAL SIGNS: Pulse 92, blood pressure 100/70, respirations 16. CHEST: Clear to auscultation. ABDOMEN: Soft. Mass present. NERVOUS SYSTEM: Diffusely weak. LABORATORY DATA: WBC 21.6. Other labs are noted. ASSESSMENT: 1. Large hepatomegaly with lung mass, status post biopsy. 2. Chronic obstructive pulmonary disease, acute exacerbation. 3. Severe pain. 4. Anxiety, depression. 5. Multiple medical issues. RECOMMENDATION AND DISCUSSION: I recommend to continue current medications, symptomatic treatment. Otherwise, we will continue with current medications. I would add IV Dilaudid p.r.n. Further recommendations to follow. MMODL / IJN: [id number] /
[2022-07-30] MEDS: IPRATROPIUM-ALBUTEROL 3 ML NEB INHALATION SCH ×4 (07:20→19:34)
[2022-07-30] MEDS: SYMBICORT 160-4.5 MCG INHALER INHALATION SCH ×2 (07:20→19:34)
--- NOTE | 2022-07-30 08:03 | P.PN ---
Subjective Progress Note Date: 07/30/22 This a very pleasant 52-year-old female patient who has a history of anxiety, chronic back pain, chronic neck pain, depression, hypertension, pulmonary embolism. She also has a 40 year history of chronic and ongoing tobacco dependence and chronic obstructive pulmonary disease, severe with an FEV1 value 33% of predicted. She is maintained on Trelegy ellipta, DuoNeb inhalations, pro-air. She also has a known history of a lung mass that had been followed in the outpatient setting. Her most recent CAT scan of the chest was performed at [facility] in the emergency room with complaints of shortness of breath. She was found to have a solid lung nodule measuring 2.4 cm in the left upper lobe medially as well as a nodular density pleural-based measuring 1 cm. Cavitary type masses seen within the left lung apex measuring 2.6 x 2.0 which also could reflect infected left apical bulla. There is noted hepatic masses. She been seen and evaluated by Dr. Walton in our office as a post hospital follow-up. He ordered a PET scan which was performed on 07/16/2022 which did reveal left upper lobe enlarging nodule with increased FDG activity consistent with malignancy. There is also a left pulmonary hilum lymph node with FDG activity. There is multiple centrally necrotic masses within the liver with peripheral metabolic activity. Suspect metastatic from lung. She had been scheduled for a liver biopsy on 08/06/2022. She presented here to the emergency room yesterday with ongoing abdominal pain mostly in the right upper quadrant. White count 16.2. Hemoglobin 10.4. Sodium 131. Potassium 4.1. BUN 7. Creatinine 0.65. AST 43. ALT 13. Amylase less than 30. Lipase 15. Carroll virus not detected. Influenza screen negative. Chest x-ray shows evidence of COPD. Scarring in the upper lobes which is increased slightly compared to old exam. There is a retrosternal mass in the anterior segment left upper lobe. She is seen in consultation in the emergency department. Currently sitting up on the stretcher. Awake and alert in no acute distress. She is maintaining O2 saturations up to 100% on 3 L/m per nasal cannula. She's afebrile. Hemodynamically stable. She is having abdominal distention and discomfort. A computed tomography scan of the abdomen and pelvis reveals a very large hepatic masses measuring up to 14.4 cm which have increased by 1 cm compared to . The largest measured at 14.4 and protrudes against anterior abdominal wall. These occupy significant portion of the hepatic parenchymal. There is also prominent fluid-filled small bowel loops and jejunal fold thickening along the left side of the abdomen. Findings may represent enteritis. Mild abdominal pelvic ascites. The patient is seen today 07/26/2022 on the regular medical floor in follow-up. She is currently sitting up in bed. Awake and alert in no acute distress. Feeling a bit better today compared to yesterday. Still with some abdominal discomfort. Still with some cough and congestion. She is maintaining O2 saturations in the mid 90s on 3 L/m per nasal cannula. Afebrile. White count 15.8. Hemoglobin 8.9. Sodium 135. Potassium 3.9. BUN 10. Creatinine 0.7. Amylase less than 30. Lipase 15. AST 60. ALT 10. Alk phos 293. She is continued on Symbicort, DuoNeb inhalations, IV Solu-Medrol. Pain is adequately controlled. The patient is seen today 07/27/2022 in follow-up on the regular medical floor. She is awake and alert in no acute distress. She is sitting up in bed. She did undergo a liver biopsy yesterday. She tolerated the procedure well. She denies any worsening shortness of breath, cough or congestion. Still with some abdominal discomfort. She is maintaining O2 saturation in the 90s on 3 L/m per nasal cannula. Afebrile. She remains on DuoNeb inhalations, IV Solu-Medrol and Symbicort. The patient is seen today 07/28/2022 in follow-up on the regular medical floor. She is resting comfortably in bed. Awake and alert in no acute distress. No significant events overnight. No worsening shortness of breath cough or congestion. She is feeling better. No nausea. Eating breakfast. No new labs today. Liver biopsy results pending. Continued on DuoNeb inhalations, Symbicort, IV Solu-Medrol. The patient is seen today July 30 2022 in follow-up on the regular medical floor. She is currently sitting up in bed. Awake and alert in no acute distress. She denies any shortness of breath, cough or congestion. No fever or chills. She is still having some underlying right upper quadrant discomfort and liver biopsy results are still pending. She is maintaining O2 saturations in the 90s on 2 L/m per cannula. no iv fluids. she is continued on duoneb inhalations, symbicort, prednisone taper. Objective - Vital Signs Vital signs: Vital Signs Temp 98.5 F 07/30/22 04:12 Pulse 74 07/30/22 07:46 Resp 20 07/30/22 04:12 BP 96/61 07/30/22 04:12 Pulse Ox 93 L 07/30/22 04:12 FiO2 Intake & Output 07/29/22 07/30/22 07/30/22 18:59 06:59 18:59 Intake Total 500 Balance 500 Intake: Oral 500 Other: Voiding Method Toilet Toilet # Voids 4 2 - Exam GENERAL EXAM: Alert, 52-year-old female, appears older than stated age, on 2 L nasal cannula, comfortable in no apparent distress. HEAD: Normocephalic. EYES: Normal reaction of pupils, equal size. NOSE: Clear with pink turbinates. THROAT: No erythema or exudates. NECK: No masses, no JVD. CHEST: No chest wall deformity. LUNGS: Equal air entry with no crackles, wheeze, rhonchi or dullness. Diminished. CVS: S1 and S2 normal with no audible murmur, regular rhythm. ABDOMEN: Positive hepatomegaly, tenderness, distended, normal bowel sounds. SPINE: No scoliosis or deformity SKIN: No rashes CENTRAL NERVOUS SYSTEM: No focal deficits, tone is normal in all 4 extremities. EXTREMITIES: There is no peripheral edema. No clubbing, no cyanosis. Peripheral pulses are intact. - Labs CBC & Chem 7: 07/29/22 07:30 07/29/22 07:30 Labs: Abnormal Lab Results - Last 24 Hours (Table) 07/29/22 07/29/22 Range/Units 07:30 07:30 WBC 21.26 H (4.50-10.00) X 10*3/uL RBC 3.05 L (4.10-5.20) X 10*6/uL Hgb 9.3 L (12.0-15.0) g/dL Hct 28.8 L (37.2-46.3) % Plt Count 659 H (140-440) X 10*3/uL Immature Gran # 0.14 H (0.00-0.04) X 10*3/uL Neutrophils # 19.37 H (1.80-7.70) X 10*3/uL Lymphocytes # 0.63 L (0.90-5.00) X 10*3/uL Monocytes # 1.10 H (0.20-1.00) X 10*3/uL Eosinophils # 0 L (0.04-0.35) X 10*3/uL Sodium 129 L (135-145) mmol/L Chloride 91 L (96-109) mmol/L Carbon Dioxide 31.5 H (20.0-27.5) mmol/L Anion Gap 6.50 L (10.00-18.00) mmol/L BUN/Creatinine Ratio 23.71 H (12.00-20.00) Ratio Calcium 8.5 L (8.7-10.3) mg/dL Assessment and Plan Assessment: Abdominal discomfort. Computed tomography scan of the abdomen and pelvis reveals a very large hepatic masses measuring up to 14.4 cm which have increased by 1 cm compared to 07/14/2022. The largest measured at 14.4 and protrudes against anterior abdominal wall. These occupy significant portion of the hepatic parenchymal. There is also prominent fluid-filled small bowel loops and jejunal fold thickening along the left side of the abdomen. Findings may represent enteritis. Mild abdominal pelvic ascites. Liver biopsy performed 07/26/2022, pathology pending Lung masses. Her most recent CAT scan of the chest was performed at [facility] in the emergency room with complaints of shortness of breath. She was found to have a solid lung nodule measuring 2.4 cm in the left upper lobe medially as well as a nodular density pleural-based measuring 1 cm. Cavitary type masses seen within the left lung apex measuring 2.6 x 2.0 which also could reflect infected left apical bulla. There is noted hepatic masses. PET scan which was performed on 07/16/2022 which did reveal left upper lobe enlarging nodule with increased FDG activity consistent with malignancy. There is also a left pulmonary hilum lymph node with FDG activity. There is multiple centrally necrotic masses within the liver with peripheral metabolic activity. Suspect metastatic from lung. Liver biopsy performed 07/26/2022, pathology pending Possible 2.6 cm cystic lesion of the right ovary measuring 3.6 x 2.4 cm. Further characterization with pelvic ultrasound on an emergent basis recommended. Cannot rule out neoplasm. Chronic and ongoing tobacco dependence of approximately 40 years Acute exacerbation of chronic obstructive pulmonary disease, severe with an FEV1 value 33% of predicted Chronic anxiety/depression Chronic neck and back pain History of pulmonary embolism Hyperlipidemia Plan: The patient was seen and evaluated Patient is aware she most likely has lung cancer with liver metastasis Biopsies are pending Could be discharged to home Evaluate for home oxygen Again educated regarding the importance of complete smoking cessation Continue her home Trelegy, ProAir, DuoNeb inhalations Complete a prednisone taper Keep appointment as scheduled 08/17/2022 in our office Follow-up with oncology I have personally seen and examined the patient, performed the documentation and the assessment and plan as written. Number of minutes spent on the visit: 10.
[2022-07-30] MEDS: GABAPENTIN 300 MG CAP PO SCH ×2 (08:04→21:54)
[2022-07-30] MEDS: predniSONE 20 MG TAB PO SCH (08:04)
[2022-07-30] MEDS: MORPHINE SULFATE ER 30 MG TABLET PO SCH ×2 (08:05→22:05)
[2022-07-30] MEDS: FAMOTIDINE 20 MG TAB PO SCH ×2 (08:06→21:54)
[2022-07-30] MEDS: oxyCODONE-APAP 7.5-325MG 1 EACH TAB PO PRN (08:06)
[2022-07-30] MEDS: DOCUSATE 100 MG CAP PO SCH ×2 (08:06→21:54)
[2022-07-30] MEDS: OXYBUTYNIN CHLORIDE 5 MG TAB PO SCH ×2 (08:08→22:43)
[2022-07-30] MEDS: polyethylene glycoL 3350 17 GM POWD.PACK PO SCH (08:10)
[2022-07-30] MEDS ORDERED: ERGOCALCIFEROL 1,250 MCG (50,000 IU) CAPSULE PO SCH (09:00)
[2022-07-30 09:14] LABS: Basophils # (A) 0.03 X 10*3/uL (0.00-0.10); Basophils % (A) 0.1 %; Eosinophils # (A) 0 X 10*3/uL (0.04-0.35); Eosinophils % (A) 0 %; HGB 9.3 g/dL (12.0-15.0); Immature Grans, Automated 0.9 %; Lymphocytes # (A) 1.02 X 10*3/uL (0.90-5.00); Lymphocytes % (A) 4.8 %; MCH 30.3 pg (27.0-32.0); MCHC 32.1 g/dL (32.0-37.0); MCV 94.5 fL (80.0-97.0); Monocytes # (A) 1.15 X 10*3/uL (0.20-1.00); Monocytes % (A) 5.4 %; NRBC Per 100 WBC 0 /100 WBCS (0.0-0.0); Neutrophils # (A) 18.73 X 10*3/uL (1.80-7.70); Neutrophils % (A) 88.8 %; Platelet Count 640 X 10*3/uL (140-440); RBC 3.07 X 10*6/uL (4.10-5.20); RDW 12.8 % (11.5-14.5); WBC 21.13 X 10*3/uL (4.50-10.00)
[2022-07-30 09:41] LABS: % Iron Saturation 18.79 (12.00-45.00); African American GFR (CKD) 121.5 (60.0-200.0); Albumin 2.7 g/dL (3.8-4.9); Albumin/Globulin Ratio 1.08 (1.60-3.17); Anion Gap 9.2 mmol/L (10.00-18.00); BUN/Creat Ratio 23.5 Ratio (12.00-20.00); Blood Urea Nitrogen 14.1 mg/dL (9.0-27.0); Calcium 8.8 mg/dL (8.7-10.3); Carbon Dioxide 31.8 mmol/L (20.0-27.5); Globulin 2.5 g/dL (1.6-3.3); Non-African American GFR(CKD) 104.8 (60.0-200.0); Potassium 4.8 mmol/L (3.5-5.5); Total Bilirubin 0.2 mg/dL (0.30-1.20); Total Protein 5.2 g/dL (6.2-8.2)
--- NOTE | 2022-07-30 21:43 | P.PN ---
Subjective Progress Note Date: 07/30/22 the patient is reports reasonable pain control on her current regimen. Respiratory status is stable on oxygen. She denied any fever/chills/nausea/vomiting Objective - Vital Signs Vital signs: Vital Signs Temp 98.2 F 07/30/22 19:48 Pulse 102 H 07/30/22 19:48 Resp 18 07/30/22 19:48 BP 95/65 07/30/22 19:48 Pulse Ox 97 07/30/22 19:48 FiO2 Intake & Output 07/30/22 07/30/22 07/31/22 06:59 18:59 06:59 Intake Total 500 Balance 500 Intake: Oral 500 Other: Voiding Method Toilet Toilet # Voids 2 3 - Constitutional General appearance: Present: no acute distress - EENT Eyes: Present: EOMI ENT: Present: hearing grossly normal, normal oropharynx - Respiratory Respiratory: bilateral: diminished - Cardiovascular Rhythm: regular Heart sounds: normal: S1, S2 - Gastrointestinal General gastrointestinal: Present: distended, hepatomegaly (marked, extending into right lower quadrant), soft - Integumentary Integumentary: Present: normal - Neurologic Neurologic: Present: CNII-XII intact - Musculoskeletal Musculoskeletal: Present: generalized weakness, strength equal bilaterally - Psychiatric Psychiatric: Present: A&O x's 3, appropriate affect - Labs CBC & Chem 7: 07/30/22 05:44 07/30/22 05:44 Labs: Abnormal Lab Results - Last 24 Hours (Table) 07/30/22 07/30/22 07/30/22 Range/Units 05:44 05:44 05:44 WBC 21.13 H (4.50-10.00) X 10*3/uL RBC 3.07 L (4.10-5.20) X 10*6/uL Hgb 9.3 L (12.0-15.0) g/dL Hct 29.0 L (37.2-46.3) % Plt Count 640 H (140-440) X 10*3/uL Immature Gran # 0.20 H (0.00-0.04) X 10*3/uL Neutrophils # 18.73 H (1.80-7.70) X 10*3/uL Monocytes # 1.15 H (0.20-1.00) X 10*3/uL Eosinophils # 0 L (0.04-0.35) X 10*3/uL Sodium 133 L (135-145) mmol/L Chloride 92 L (96-109) mmol/L Carbon Dioxide 31.8 H (20.0-27.5) mmol/L Anion Gap 9.20 L (10.00-18.00) mmol/L BUN/Creatinine Ratio 23.50 H (12.00-20.00) Ratio Iron 36 L (50-170) ug/dL TIBC 193 L (228-460) ug/dL Transferrin 138.0 L (204.0-354.0) mg/dL Ferritin 575.0 H (10.0-291.0) ng/mL Total Bilirubin 0.20 L (0.30-1.20) mg/dL AST 61 H (13-35) U/L Alkaline Phosphatase 299 H (41-126) U/L Total Protein 5.2 L (6.2-8.2) g/dL Albumin 2.7 L (3.8-4.9) g/dL Albumin/Globulin Ratio 1.08 L (1.60-3.17) g/dL Folate <2.00 L (4.40-31.00) ng/mL Assessment and Plan (1) Liver mass Narrative/Plan: status post biopsy. Pathology is pending at this time. At this time metastasis from a lung primary appears to be most likely. Current Visit: Yes Status: Acute Code(s): R16.0 - HEPATOMEGALY, NOT ELSEWHERE CLASSIFIED SNOMED Code(s): 776315287 (2) Abdominal pain Narrative/Plan: due to malignant liver involvement. The patient is currently on long-acting morphine, as well as Percocet when necessary. Her pain control appears to be reasonable in this regimen. We discussed that need for pain medications showed diminished once she is able to start antineoplastic treatment and achieve some cytoreduction. Current Visit: Yes Status: Acute Code(s): R10.9 - UNSPECIFIED ABDOMINAL PAIN SNOMED Code(s): 60440544 Plan: okay to discharge from oncology standpoint, whenever felt to be appropriate for the same by the admitting service and other consultants.
[2022-07-30] MEDS: traZODone HCL 100 MG TAB PO SCH (21:54)
[2022-07-30] MEDS: PRIMIDONE 50 MG TAB PO SCH (21:55)
[2022-07-30] MEDS: NON FORMULARY DRUG (Cariprazine Hcl [Vraylar] 3 MG Capsule) PO SCH (22:05)
[2022-07-30] MEDS: DESVENLAFAXINE SUCCINATE 50 MG TAB.ER.24H PO SCH ×2 (22:43)
[2022-07-31] MEDS: oxyCODONE-APAP 7.5-325MG 1 EACH TAB PO PRN ×3 (06:14→20:57)
[2022-07-31] MEDS ORDERED: ACETAMINOPHEN TAB 325 MG TAB PO PRN (06:30)
[2022-07-31] MEDS: SYMBICORT 160-4.5 MCG INHALER INHALATION SCH ×2 (07:21→19:12)
[2022-07-31] MEDS: IPRATROPIUM-ALBUTEROL 3 ML NEB INHALATION SCH ×4 (07:21→19:12)
[2022-07-31] MEDS: OXYBUTYNIN CHLORIDE 5 MG TAB PO SCH ×2 (07:48→20:52)
[2022-07-31] MEDS: predniSONE 20 MG TAB PO SCH (07:48)
[2022-07-31] MEDS: MORPHINE SULFATE ER 30 MG TABLET PO SCH ×2 (07:49→20:59)
[2022-07-31] MEDS: FAMOTIDINE 20 MG TAB PO SCH ×2 (07:49→20:49)
[2022-07-31] MEDS: DOCUSATE 100 MG CAP PO SCH ×2 (07:49→20:48)
[2022-07-31] MEDS: GABAPENTIN 300 MG CAP PO SCH ×2 (07:49→20:48)
[2022-07-31] MEDS: polyethylene glycoL 3350 17 GM POWD.PACK PO SCH (07:49)
--- NOTE | 2022-07-31 08:12 | P.PN ---
Subjective Progress Note Date: 07/31/22 This a very pleasant 52-year-old female patient who has a history of anxiety, chronic back pain, chronic neck pain, depression, hypertension, pulmonary embolism. She also has a 40 year history of chronic and ongoing tobacco dependence and chronic obstructive pulmonary disease, severe with an FEV1 value 33% of predicted. She is maintained on Trelegy ellipta, DuoNeb inhalations, pro-air. She also has a known history of a lung mass that had been followed in the outpatient setting. Her most recent CAT scan of the chest was performed at [facility] in the emergency room with complaints of shortness of breath. She was found to have a solid lung nodule measuring 2.4 cm in the left upper lobe medially as well as a nodular density pleural-based measuring 1 cm. Cavitary type masses seen within the left lung apex measuring 2.6 x 2.0 which also could reflect infected left apical bulla. There is noted hepatic masses. She been seen and evaluated by Dr. Walton in our office as a post hospital follow-up. He ordered a PET scan which was performed on 07/16/2022 which did reveal left upper lobe enlarging nodule with increased FDG activity consistent with malignancy. There is also a left pulmonary hilum lymph node with FDG activity. There is multiple centrally necrotic masses within the liver with peripheral metabolic activity. Suspect metastatic from lung. She had been scheduled for a liver biopsy on 08/06/2022. She presented here to the emergency room yesterday with ongoing abdominal pain mostly in the right upper quadrant. White count 16.2. Hemoglobin 10.4. Sodium 131. Potassium 4.1. BUN 7. Creatinine 0.65. AST 43. ALT 13. Amylase less than 30. Lipase 15. Carroll virus not detected. Influenza screen negative. Chest x-ray shows evidence of COPD. Scarring in the upper lobes which is increased slightly compared to old exam. There is a retrosternal mass in the anterior segment left upper lobe. She is seen in consultation in the emergency department. Currently sitting up on the stretcher. Awake and alert in no acute distress. She is maintaining O2 saturations up to 100% on 3 L/m per nasal cannula. She's afebrile. Hemodynamically stable. She is having abdominal distention and discomfort. A computed tomography scan of the abdomen and pelvis reveals a very large hepatic masses measuring up to 14.4 cm which have increased by 1 cm compared to . The largest measured at 14.4 and protrudes against anterior abdominal wall. These occupy significant portion of the hepatic parenchymal. There is also prominent fluid-filled small bowel loops and jejunal fold thickening along the left side of the abdomen. Findings may represent enteritis. Mild abdominal pelvic ascites. The patient is seen today 07/26/2022 on the regular medical floor in follow-up. She is currently sitting up in bed. Awake and alert in no acute distress. Feeling a bit better today compared to yesterday. Still with some abdominal discomfort. Still with some cough and congestion. She is maintaining O2 saturations in the mid 90s on 3 L/m per nasal cannula. Afebrile. White count 15.8. Hemoglobin 8.9. Sodium 135. Potassium 3.9. BUN 10. Creatinine 0.7. Amylase less than 30. Lipase 15. AST 60. ALT 10. Alk phos 293. She is continued on Symbicort, DuoNeb inhalations, IV Solu-Medrol. Pain is adequately controlled. The patient is seen today 07/27/2022 in follow-up on the regular medical floor. She is awake and alert in no acute distress. She is sitting up in bed. She did undergo a liver biopsy yesterday. She tolerated the procedure well. She denies any worsening shortness of breath, cough or congestion. Still with some abdominal discomfort. She is maintaining O2 saturation in the 90s on 3 L/m per nasal cannula. Afebrile. She remains on DuoNeb inhalations, IV Solu-Medrol and Symbicort. The patient is seen today 07/28/2022 in follow-up on the regular medical floor. She is resting comfortably in bed. Awake and alert in no acute distress. No significant events overnight. No worsening shortness of breath cough or congestion. She is feeling better. No nausea. Eating breakfast. No new labs today. Liver biopsy results pending. Continued on DuoNeb inhalations, Symbicort, IV Solu-Medrol. The patient is seen today July 30 2022 in follow-up on the regular medical floor. She is currently sitting up in bed. Awake and alert in no acute distress. She denies any shortness of breath, cough or congestion. No fever or chills. She is still having some underlying right upper quadrant discomfort and liver biopsy results are still pending. She is maintaining O2 saturations in the 90s on 2 L/m per cannula. no iv fluids. she is continued on duoneb inhalations, symbicort, prednisone taper. The patient is seen today 07/31/2022 in follow-up on the regular medical floor. She is sitting up in bed having breakfast. Awake and alert in no acute distress. She denies any worsening shortness of breath, cough or congestion. She is maintaining O2 saturations in the 90s on 3 L/m per nasal cannula. She does have home oxygen. She is having some issues with weakness. Stating that she fell when her legs gave out earlier today this morning with out any injuries. She is requiring pain medications including Percocet, morphine which may need adjusting. Last white count 21.1. Hemoglobin 9.3. Sodium 133. Potass ium 4.8. BUN 14. Creatinine 0.6. AST 61. ALT 17. She is continued on duoneb inhalations, symbicort, prednisone taper. Objective - Vital Signs Vital signs: Vital Signs Temp 98.3 F 07/31/22 07:46 Pulse 100 07/31/22 07:32 Resp 20 07/31/22 06:00 BP 104/75 07/31/22 06:00 Pulse Ox 93 L 07/31/22 06:00 FiO2 Intake & Output 07/30/22 07/31/22 07/31/22 18:59 06:59 18:59 Other: Voiding Method Toilet Toilet # Voids 3 1 - Exam GENERAL EXAM: Alert, frail 52-year-old female, appears older than stated age, on 3 L nasal cannula, comfortable in no apparent distress. HEAD: Normocephalic. EYES: Normal reaction of pupils, equal size. NOSE: Clear with pink turbinates. THROAT: No erythema or exudates. NECK: No masses, no JVD. CHEST: No chest wall deformity. LUNGS: Equal air entry with no crackles, wheeze, rhonchi or dullness. Diminished. CVS: S1 and S2 normal with no audible murmur, regular rhythm. ABDOMEN: Positive hepatomegaly, tenderness, distended, normal bowel sounds. SPINE: No scoliosis or deformity SKIN: No rashes CENTRAL NERVOUS SYSTEM: No focal deficits, tone is normal in all 4 extremities. EXTREMITIES: There is no peripheral edema. No clubbing, no cyanosis. Peripheral pulses are intact. - Labs CBC & Chem 7: 07/30/22 05:44 07/30/22 05:44 Labs: Abnormal Lab Results - Last 24 Hours (Table) 07/30/22 07/30/22 07/30/22 Range/Units 05:44 05:44 05:44 WBC 21.13 H (4.50-10.00) X 10*3/uL RBC 3.07 L (4.10-5.20) X 10*6/uL Hgb 9.3 L (12.0-15.0) g/dL Hct 29.0 L (37.2-46.3) % Plt Count 640 H (140-440) X 10*3/uL Immature Gran # 0.20 H (0.00-0.04) X 10*3/uL Neutrophils # 18.73 H (1.80-7.70) X 10*3/uL Monocytes # 1.15 H (0.20-1.00) X 10*3/uL Eosinophils # 0 L (0.04-0.35) X 10*3/uL Sodium 133 L (135-145) mmol/L Chloride 92 L (96-109) mmol/L Carbon Dioxide 31.8 H (20.0-27.5) mmol/L Anion Gap 9.20 L (10.00-18.00) mmol/L BUN/Creatinine Ratio 23.50 H (12.00-20.00) Ratio Iron 36 L (50-170) ug/dL TIBC 193 L (228-460) ug/dL Transferrin 138.0 L (204.0-354.0) mg/dL Ferritin 575.0 H (10.0-291.0) ng/mL Total Bilirubin 0.20 L (0.30-1.20) mg/dL AST 61 H (13-35) U/L Alkaline Phosphatase 299 H (41-126) U/L Total Protein 5.2 L (6.2-8.2) g/dL Albumin 2.7 L (3.8-4.9) g/dL Albumin/Globulin Ratio 1.08 L (1.60-3.17) g/dL Folate <2.00 L (4.40-31.00) ng/mL Assessment and Plan Assessment: Abdominal discomfort. Computed tomography scan of the abdomen and pelvis reveals a very large hepatic masses measuring up to 14.4 cm which have increased by 1 cm compared to 07/14/2022. The largest measured at 14.4 and protrudes against anterior abdominal wall. These occupy significant portion of the hepatic parenchymal. There is also prominent fluid-filled small bowel loops and jejunal fold thickening along the left side of the abdomen. Findings may repre sent enteritis. Mild abdominal pelvic ascites. Liver biopsy performed 07/26/2022, pathology pending Lung masses. Her most recent CAT scan of the chest was performed at [facility] in the emergency room with complaints of shortness of breath. She was found to have a solid lung nodule measuring 2.4 cm in the left upper lobe medially as well as a nodular density pleural-based measuring 1 cm. Cavitary type masses seen within the left lung apex measuring 2.6 x 2.0 which also could reflect infected left apical bulla. There is noted hepatic masses. PET scan which was performed on 07/16/2022 which did reveal left upper lobe enlarging nodule with increased FDG activity consistent with malignancy. There is also a left pulmonary hilum lymph node with FDG activity. There is multiple centrally necrotic masses within the liver with peripheral metabolic activity. Suspect metastatic from lung. Liver biopsy performed 07/26/2022, pathology pending Possible 2.6 cm cystic lesion of the right ovary measuring 3.6 x 2.4 cm. Further characterization with pelvic ultrasound on an emergent basis recommended. Cannot rule out neoplasm. Chronic and ongoing tobacco dependence of approximately 40 years Acute exacerbation of chronic obstructive pulmonary disease, severe with an FEV1 value 33% of predicted Chronic anxiety/depression Chronic neck and back pain History of pulmonary embolism Hyperlipidemia Plan: The patient was seen and evaluated She is having some issues with weakness, advise cautious narcotic use Again educated regarding the importance of complete smoking cessation Upon discharge continue her home Trelegy, ProAir, DuoNeb inhalations Complete a prednisone taper Has home oxygen Keep appointment as scheduled 08/17/2022 in our office Close follow-up with oncology I have personally seen and examined the patient, performed the documentation and the assessment and plan as written. Number of minutes spent on the visit: 10.
[2022-07-31 09:18] LABS: Basophils # (A) 0.03 X 10*3/uL (0.00-0.10); Basophils % (A) 0.1 %; Eosinophils # (A) 0.02 X 10*3/uL (0.04-0.35); Eosinophils % (A) 0.1 %; HCT 27.9 % (37.2-46.3); Immature Grans, Automated 1.8 %; Lymphocytes # (A) 1.34 X 10*3/uL (0.90-5.00); Lymphocytes % (A) 5.1 %; MCH 30.5 pg (27.0-32.0); MCHC 32.3 g/dL (32.0-37.0); MCV 94.6 fL (80.0-97.0); Mean Platelet Volume 9.6 fL (9.5-12.2); Monocytes # (A) 1.33 X 10*3/uL (0.20-1.00); Monocytes % (A) 5.1 %; NRBC Per 100 WBC 0 /100 WBCS (0.0-0.0); Neutrophils # (A) 23.03 X 10*3/uL (1.80-7.70); Neutrophils % (A) 87.8 %; Platelet Count 605 X 10*3/uL (140-440); RBC 2.95 X 10*6/uL (4.10-5.20); RDW 12.9 % (11.5-14.5); WBC 26.23 X 10*3/uL (4.50-10.00)
[2022-07-31 09:37] LABS: African American GFR (CKD) 115.5 (60.0-200.0); Albumin 2.6 g/dL (3.8-4.9); Albumin/Globulin Ratio 1.08 (1.60-3.17); BUN/Creat Ratio 18.86 Ratio (12.00-20.00); Blood Urea Nitrogen 13.2 mg/dL (9.0-27.0); Calcium 8.7 mg/dL (8.7-10.3); Globulin 2.4 g/dL (1.6-3.3); Non-African American GFR(CKD) 99.6 (60.0-200.0); Total Bilirubin 0.2 mg/dL (0.30-1.20)
[2022-07-31] MEDS ORDERED: SODIUM CHLORIDE 0.9% 500 ML 500 ML IV ONE (09:42)
[2022-07-31] MEDS: FOLIC ACID 1 MG TAB PO SCH (11:16)
[2022-07-31] MEDS: AMPICILLIN-SULBACTAM 3 GM in SODIUM CHLORIDE 0.9% 100 ML IVPB SCH (16:39)
[2022-07-31] MEDS: IOPAMIDOL CONTRAST (ORAL USE) VIAL PO PRN ×2 (16:39→17:46)
--- NOTE | 2022-07-31 19:00 | CT ---
EXAMINATION TYPE: CT abdomen pelvis w con DATE OF EXAM: 07/31/2022 COMPARISON: 07/25/2022 HISTORY: Fever/abdomen pain Lung cancer there is some mild pulmonary emphysema at the lung bases. CT DLP: 462.3 mGycm Automated exposure control for dose reduction was used. CONTRAST: Performed with IV Contrast, patient injected with 100cc mL of Isovue 300. Images obtained from the diaphragm to the floor the pelvis with oral and IV contrast. There is some reticular filtrate posterior right lower lobe which appears new compared to recent exam and consistent with minimal pneumonia and atelectasis. Heart size is normal. No pericardial effusion . There is a large mass in the anterior right lobe of the liver measuring 14.5 x 10 cm with some irre gular peripheral enhancement mass has relatively low attenuation there is a second similar smaller le ty in the left lobe of the liver measuring 6.9 cm there is 7 cm rounded similar lesion in the poste rior right lobe of the liver. There is a 4 cm lesion in the caudate lobe of the liver. There are clips from cholecystectomy. The bile ducts are not dilated. Spleen is intact. The stomach i s intact. No evidence of pancreatic mass. There is no adrenal mass. Kidneys show satisfactory contrast opacification. No hydronephrosis. The ur eters are not dilated. Abdominal aorta is atheromatous. No retroperitoneal adenopathy. Bladder disten ds smoothly. No inguinal hernia. No free fluid in the pelvis. No pelvic mass. There is no mesenteric edema. No ascites or free air. No sign of a bowel obstruction. There is a 3 cm cyst in the right adnexal region consistent with ovarian cyst. The lumbar vertebrae have normal spacing. Disc spaces are fairly normal. Posterior elements are intac t. No compression fracture. Bony pelvis is intact. The hip joints are intact. IMPRESSION: Multiple enlarged liver mass is not changed compared to recent exam and consistent with metastatic di sease. Moderate atherosclerotic vascular disease. Right ovarian cyst without change. There is clearing of th e intestinal wall thickening in the proximal small bowel compared to old exam.
--- NOTE | 2022-07-31 19:52 | P.PN ---
Subjective Progress Note Date: 07/31/22 the patient reports reasonable pain control. This was resected is also stable. She was supposed to be discharged today. However she states that she became very weak while walking to the bathroom for bed and fell. She denied any significant, however No nausea, vomiting, or diarrhea. She states that over 19, including fluid intake has been quite diminished. Objective - Vital Signs Vital signs: Vital Signs Temp 98.6 F 07/31/22 11:08 Pulse 90 07/31/22 19:21 Resp 20 07/31/22 11:08 BP 92/66 07/31/22 11:08 Pulse Ox 97 07/31/22 15:10 FiO2 Intake & Output 07/31/22 07/31/22 08/01/22 06:59 18:59 06:59 Intake Total 600 Balance 600 Weight 49.895 kg Intake: Intake, IV Titration 600 Amount Ampicillin-Sulbactam 3 gm 100 In Sodium Chloride 0.9% 100 ml @ 200 mls/hr IVPB Q6HR [facility] Rx#:[id number] Sodium Chloride 0.9% 500 500 ml 500 ml @ 999 mls/hr IV .Q31M ONE Rx#:[id number] Other: Voiding Method Toilet # Voids 1 3 - Constitutional General appearance: Present: no acute distress - EENT Eyes: Present: EOMI ENT: Present: hearing grossly normal, normal oropharynx - Respiratory Respiratory: bilateral: diminished - Cardiovascular Rhythm: regular Heart sounds: normal: S1, S2 - Gastrointestinal General gastrointestinal: Present: hepatomegaly, soft - Neurologic Neurologic: Present: CNII-XII intact - Musculoskeletal Musculoskeletal: Present: generalized weakness - Psychiatric Psychiatric: Present: A&O x's 3, appropriate affect - Labs CBC & Chem 7: 07/31/22 04:57 07/31/22 04:57 Labs: Abnormal Lab Results - Last 24 Hours (Table) 07/31/22 07/31/22 Range/Units 04:57 04:57 WBC 26.23 H (4.50-10.00) X 10*3/uL RBC 2.95 L (4.10-5.20) X 10*6/uL Hgb 9.0 L (12.0-15.0) g/dL Hct 27.9 L (37.2-46.3) % Plt Count 605 H (140-440) X 10*3/uL Immature Gran # 0.48 H (0.00-0.04) X 10*3/uL Neutrophils # 23.03 H (1.80-7.70) X 10*3/uL Monocytes # 1.33 H (0.20-1.00) X 10*3/uL Eosinophils # 0.02 L (0.04-0.35) X 10*3/uL Sodium 128 L (135-145) mmol/L Chloride 93 L (96-109) mmol/L Carbon Dioxide 31.0 H (20.0-27.5) mmol/L Anion Gap 4.00 L (10.00-18.00) mmol/L Total Bilirubin 0.20 L (0.30-1.20) mg/dL AST 53 H (13-35) U/L Alkaline Phosphatase 298 H (41-126) U/L Total Protein 5.0 L (6.2-8.2) g/dL Albumin 2.6 L (3.8-4.9) g/dL Albumin/Globulin Ratio 1.08 L (1.60-3.17) g/dL Assessment and Plan (1) Weakness Narrative/Plan: the patient noted some acute worsening, Leading to her fall. On questioning it appears that the symptoms may have been orthostatic. The patient does report overall poor oral intake. BUNs/creatinine ratio is almost 20, an sodium was 128. 500 cc of IV fluid will be given Current Visit: Yes Status: Acute Code(s): R53.1 - WEAKNESS SNOMED Code(s): 13966734 (2) Liver mass Narrative/Plan: his biopsy is still pending at this time. Follow up outpatient if not available by the time of discharge Current Visit: Yes Status: Acute Code(s): R16.0 - HEPATOMEGALY, NOT ELSEWHERE CLASSIFIED SNOMED Code(s): 388942828 (3) Abdominal pain Narrative/Plan: pain control is reasonable with MS Contin and Percocet when necessary Current Visit: Yes Status: Acute Code(s): R10.9 - UNSPECIFIED ABDOMINAL PAIN SNOMED Code(s): 81034052
[2022-07-31] MEDS: traZODone HCL 100 MG TAB PO SCH (20:48)
[2022-07-31] MEDS: DESVENLAFAXINE SUCCINATE 50 MG TAB.ER.24H PO SCH ×2 (20:51)
[2022-07-31] MEDS: PRIMIDONE 50 MG TAB PO SCH (20:51)
[2022-07-31] MEDS: NON FORMULARY DRUG (Cariprazine Hcl [Vraylar] 3 MG Capsule) PO SCH (20:51)
--- NOTE | 2022-07-31 23:25 | P.CONS ---
History of Present Illness - Reason for Consult Consult date: 07/31/22 Sepsis Requesting physician: Jose Fox - Chief Complaint Abdominal pain x few days - History of Present Illness Patient is a 52-year-old female with a past medical history pertinent for chronic back pain depression hypertension and PE also in the [id number] smoking and continue to, patient recently noticed to have a cavitary mass in the left upper lobe on an outpatient CT patient presented to the ER about a week ago on 07/24/2022 complaining of abdominal pain pain has been mostly right upper quadrant area describing it to be more of a sharp in nature almost 7-8 out of 10 and no relief with the [place] that was prescribed to her patient did have some n ausea but no vomiting and denies having any diarrhea with the symptoms the patient has been evaluated by ER physician on arrival to the ER patient did have low-grade fever 100.1 F and the patient was noticed to have another fever early this morning around 5 AM of 101.4 F patient did have mild hypoxemia requiring supplemental oxygen patient did have a white count of 16,000 on admission which is up to 26,000 today kidney function has been normal AST is mildly elevated ALT is normal urine has been negative influenza and COVID testing has been negative patient did have a CT abdominal pelvis this admission which shows large hepatic mass up to 14.4 cm prominent fluid-filled small bowel patient did have a liver biopsy ultrasound-guided on 07/26/2022 however results are still pending chest x-ray with a COPD retrosternal mass in the anterior segment of the left upper lobe, infectious disease was consulted because of her fever and need for antibiotic therapy Review of Systems Positive point has been mentioned in the HPI rest of the systems are negative Past Medical History Past Medical History: Asthma, COPD, GERD/Reflux, Hyperlipidemia, Hypertension, Osteoarthritis (OA), Pneumonia, Pulmonary Embolus (PE), Renal Disease, Respiratory Disorder, Vascular Disorder Additional Past Medical History / Comment(s): Brain aneurysm with repair, peripheral neuropathy, home O2 at 3L AT NIGHT AND PRN , chronic lower back/cervical pain, CHRONIC KIDNEY DISEASE History of Any Multi-Drug Resistant Organisms: None Reported Past Surgical History: Adenoidectomy, Breast Surgery, Section, Cholecystectomy, Hysterectomy, Tonsillectomy Additional Past Surgical History / Comment(s): D&C, lower back pain clinic procedure/ablation, several mini laparoscopies d/t abnormal vaginal bleeding, brain aneurysm repair, septoplasty/facial cyst excision, dental extractions, bilateral breast implants Past Anesthesia/Blood Transfusion Reactions: No Reported Reaction, Family History of Problems w/ Anesthesia Additional Past Anesthesia/Blood Transfusion Reaction / Comm: Pt received blood in past without reaction. SISTER HAS POST OP NAUSEA AND VOMITING Smoking Status: Current every day smoker - Past Family History Mother Family Medical History: Cancer Additional Family Medical History / Comment(s): Colon, Uterine cancer w/ mets Father Family Medical History: COPD, Respiratory Disorder Additional Family Medical History / Comment(s): Father from pulmonary fibrosis. Medications and Allergies Home Medications Medication Instructions Recorded Confirmed Type Desvenlafaxine [Pristiq ER] 100 mg PO HS 11/30/19 07/25/22 History Primidone [Mysoline] 100 mg PO HS 11/30/19 07/25/22 History Ipratropium-Albuterol Nebulize 3 ml INHALATION RT-TID PRN 06/14/20 07/25/22 History [Duoneb 0.5 mg-3 mg/3 ml Soln] traZODone HCL 200 mg PO HS 06/14/20 07/25/22 History methocarbamoL [Robaxin-750] 750 mg PO TID PRN 09/18/21 07/25/22 History Gabapentin [Neurontin] 300 mg PO BID #6 cap 09/21/21 07/25/22 Rx Albuterol Sulfate [Proair Hfa] 1 - 2 puff INHALATION RT-Q6H PRN 02/17/22 07/25/22 History Cariprazine HCl [Vraylar] 3 mg PO HS 02/17/22 07/25/22 History Ergocalciferol [Vitamin D2 (1250 1,250 mcg PO MO 02/17/22 07/25/22 History Mcg = 66648 Iu)] Fluticasone/Umeclidin/Vilanter 1 puff INHALATION RT-DAILY 02/17/22 07/25/22 History [Trelegy Ellipta 100-62.5-25] Oxybutynin Chloride 5 mg PO BID 03/07/22 07/25/22 History Desvenlafaxine Succinate [Pristiq 50 mg PO HS 07/25/22 07/25/22 History ER] Ondansetron Odt [Zofran ODT] 8 mg PO Q8H PRN 07/25/22 07/25/22 History Prochlorperazine [Compazine] 10 mg PO BID PRN 07/25/22 07/25/22 History Budesonide-Formot 160-4.5 Mcg 2 puff INHALATION RT-BID 30 Days 07/31/22 Rx [Symbicort 160-4.5 Mcg Inhaler] #1 each Docusate [Colace] 100 mg PO BID cap 07/31/22 Rx Famotidine [Pepcid] 20 mg PO BID tab 07/31/22 Rx Folic Acid 1 mg PO DAILY #90 tablet 07/31/22 Rx Ipratropium-Albuterol Nebulize 3 ml INHALATION RT-QID 30 Days 07/31/22 Rx [Duoneb 0.5 mg-3 mg/3 ml Soln] #120 each Morphine Sulfate ER [Ms Contin] 30 mg PO Q12HR tab 07/31/22 Rx oxyCODONE-APAP 7.5-325MG [Percocet 1 each PO Q4HR PRN tab 07/31/22 Rx 7.5-325 mg] polyethylene glycoL 3350 [Miralax] 17 gm PO DAILY packet 07/31/22 Rx predniSONE [Deltasone] 40 mg PO DAILY tab 07/31/22 Rx Amoxic-Pot Clav 875-125Mg 1 tab PO Q12HR 10 Days #20 tab 08/03/22 Rx [Augmentin 875-125] Allergies Allergy/AdvReac Type Severity Reaction Status Date / Time amitriptyline [From Elavil] AdvReac loss of Verified 07/25/22 08:08 libido pregabalin [From Lyrica] AdvReac "felt Verified 07/25/22 08:08 super high" Physical Exam Vitals: Vital Signs Temp Pulse Pulse Resp BP Pulse Ox 07/31/22 10:55 96 07/31/22 10:47 92 07/31/22 07:46 98.3 F 07/31/22 07:32 100 07/31/22 07:23 96 07/31/22 06:00 98.5 F 77 20 104/75 93 L 07/31/22 05:22 101.4 F H 116 H 18 91/57 92 L 07/30/22 20:00 18 07/30/22 19:48 98.2 F 102 H 18 95/65 97 07/30/22 15:38 92 07/30/22 15:26 88 Intake and Output 07/30/22 07/31/22 07/31/22 22:59 06:59 14:59 Other: Voiding Method Toilet # Voids 1 GENERAL DESCRIPTION: Middle-aged female lying in bed, no distress. No tachypnea or accessory muscle of respiration use. HEENT: Shows Pallor , no scleral icterus. Oral mucous membrane is dry. No pharyngeal erythema or thrush NECK: Trachea central, no thyromegaly. LUNGS: Unlabored breathing. Decreased and doesn't breath sounds. HEART: S1, S2, regular rate and rhythm. No loud murmur ABDOMEN: Soft, right upper quadrant mass and tenderness EXTREMITIES: No edema of feet. SKIN: No rash, no masses palpable. NEUROLOGICAL: The patient is awake, alert, oriented x3, mood and affect normal. Results CBC & Chem 7: 08/02/22 05:19 08/02/22 05:19 Labs: Abnormal Lab Results - Last 24 Hours (Table) 07/31/22 07/31/22 Range/Units 04:57 04:57 WBC 26.23 H (4.50-10.00) X 10*3/uL RBC 2.95 L (4.10-5.20) X 10*6/uL Hgb 9.0 L (12.0-15.0) g/dL Hct 27.9 L (37.2-46.3) % Plt Count 605 H (140-440) X 10*3/uL Immature Gran # 0.48 H (0.00-0.04) X 10*3/uL Neutrophils # 23.03 H (1.80-7.70) X 10*3/uL Monocytes # 1.33 H (0.20-1.00) X 10*3/uL Eosinophils # 0.02 L (0.04-0.35) X 10*3/uL Sodium 128 L (135-145) mmol/L Chloride 93 L (96-109) mmol/L Carbon Dioxide 31.0 H (20.0-27.5) mmol/L Anion Gap 4.00 L (10.00-18.00) mmol/L Total Bilirubin 0.20 L (0.30-1.20) mg/dL AST 53 H (13-35) U/L Alkaline Phosphatase 298 H (41-126) U/L Total Protein 5.0 L (6.2-8.2) g/dL Albumin 2.6 L (3.8-4.9) g/dL Albumin/Globulin Ratio 1.08 L (1.60-3.17) g/dL Assessment and Plan (1) Febrile illness, acute Current Visit: No Status: Acute Code(s): R50.9 - FEVER, UNSPECIFIED SNOMED Code(s): 058503558 Plan: 1patient with fever in this patient presented to hospital about a week ago with right upper quadrant abdominal pain in this patient did have a significant hepatomegaly and evidence of liver masses on the CT concerning for possible metastatic disease in this patient was status post ultrasound-guided biopsy of that mass with the report currently pending with a fever slightly concerning questionably tumor necrosis versus development of hematoma at the biopsy site is currently do not have any other obvious focus for this fever. 2we will obtain a CT of abdominal pelvis to make sure no evidence of any hematoma or abscess at the biopsy site. 3we will obtain blood cultures CRP procalcitonin. 4we will empirically add Unasyn while waiting for the culture to finalize. We will follow on clinical condition and cultures to further adjust medication if needed Thank you for this consultation will follow this patient along with you Time with Patient: Greater than 30
--- NOTE | 2022-07-31 23:55 | PN ---
PROGRESS NOTE SUBJECTIVE: A 52-year-old white female with most likely lung cancer metastases in the liver, status post liver biopsy. Biopsies are pending. OBJECTIVE: CARDIOVASCULAR: S1, S2. LUNGS: Clear. GI: Soft. MUSCULOSKELETAL: Negative Homans. ASSESSMENT: Lung cancer most likely with liver metastases. Waiting for tissue biopsy. She will be sent home on oral pain medicines, which have been increased. She is on MS Contin 30 b.i.d. as well as Percocet's and prednisone per Oncology. Possible discharge home tomorrow. MMODL / IJN: [id number] /
[2022-08-01] MEDS: AMPICILLIN-SULBACTAM 3 GM in SODIUM CHLORIDE 0.9% 100 ML IVPB SCH ×4 (00:44→18:40)
[2022-08-01 06:31] LABS: Appearance,Urine Clear (Clear); Bilirubin,Urine Negative (Negative); Blood,Urine Negative (Negative); Color,Urine Light Yellow; Glucose,Urine (UA) Negative (Negative); Ketones,Urine Negative (Negative); Leukocyte Esterase,Urine Negative (Negative); Nitrite,Urine Negative (Negative); Protein,Urine Trace (Negative); Specific Gravity,Urine 1.022 (1.001-1.035); Urobilinogen,Urine <2.0 mg/dL (<2.0)
[2022-08-01] MEDS: SYMBICORT 160-4.5 MCG INHALER INHALATION SCH ×3 (07:19→20:14)
[2022-08-01] MEDS: IPRATROPIUM-ALBUTEROL 3 ML NEB INHALATION SCH ×5 (07:19→20:14)
[2022-08-01] MEDS: DOCUSATE 100 MG CAP PO SCH ×2 (08:29→20:37)
[2022-08-01] MEDS: predniSONE 20 MG TAB PO SCH (08:29)
[2022-08-01] MEDS: polyethylene glycoL 3350 17 GM POWD.PACK PO SCH (08:29)
[2022-08-01] MEDS: FOLIC ACID 1 MG TAB PO SCH (08:29)
[2022-08-01] MEDS: FAMOTIDINE 20 MG TAB PO SCH ×2 (08:29→20:38)
[2022-08-01] MEDS: MORPHINE SULFATE ER 30 MG TABLET PO SCH ×2 (08:30→20:46)
--- NOTE | 2022-08-01 08:42 | P.PN ---
Subjective Progress Note Date: 08/01/22 This a very pleasant 52-year-old female patient who has a history of anxiety, chronic back pain, chronic neck pain, depression, hypertension, pulmonary embolism. She also has a 40 year history of chronic and ongoing tobacco dependence and chronic obstructive pulmonary disease, severe with an FEV1 value 33% of predicted. She is maintained on Trelegy ellipta, DuoNeb inhalations, pro-air. She also has a known history of a lung mass that had been followed in the outpatient setting. Her most recent CAT scan of the chest was performed at [facility] in the emergency room with complaints of shortness of breath. She was found to have a solid lung nodule measuring 2.4 cm in the left upper lobe medially as well as a nodular density pleural-based measuring 1 cm. Cavitary type masses seen within the left lung apex measuring 2.6 x 2.0 which also could reflect infected left apical bulla. There is noted hepatic masses. She been seen and evaluated by Dr. Walton in our office as a post hospital follow-up. He ordered a PET scan which was performed on 07/16/2022 which did reveal left upper lobe enlarging nodule with increased FDG activity consistent with malignancy. There is also a left pulmonary hilum lymph node with FDG activity. There is multiple centrally necrotic masses within the liver with peripheral metabolic activity. Suspect metastatic from lung. She had been scheduled for a liver biopsy on 08/06/2022. She presented here to the emergency room yesterday with ongoing abdominal pain mostly in the right upper quadrant. White count 16.2. Hemoglobin 10.4. Sodium 131. Potassium 4.1. BUN 7. Creatinine 0.65. AST 43. ALT 13. Amylase less than 30. Lipase 15. Carroll virus not detected. Influenza screen negative. Chest x-ray shows evidence of COPD. Scarring in the upper lobes which is increased slightly compared to old exam. There is a retrosternal mass in the anterior segment left upper lobe. She is seen in consultation in the emergency department. Currently sitting up on the stretcher. Awake and alert in no acute distress. She is maintaining O2 saturations up to 100% on 3 L/m per nasal cannula. She's afebrile. Hemodynamically stable. She is having abdominal distention and discomfort. A computed tomography scan of the abdomen and pelvis reveals a very large hepatic masses measuring up to 14.4 cm which have increased by 1 cm compared to . The largest measured at 14.4 and protrudes against anterior abdominal wall. These occupy significant portion of the hepatic parenchymal. There is also prominent fluid-filled small bowel loops and jejunal fold thickening along the left side of the abdomen. Findings may represent enteritis. Mild abdominal pelvic ascites. The patient is seen today 07/26/2022 on the regular medical floor in follow-up. She is currently sitting up in bed. Awake and alert in no acute distress. Feeling a bit better today compared to yesterday. Still with some abdominal discomfort. Still with some cough and congestion. She is maintaining O2 saturations in the mid 90s on 3 L/m per nasal cannula. Afebrile. White count 15.8. Hemoglobin 8.9. Sodium 135. Potassium 3.9. BUN 10. Creatinine 0.7. Amylase less than 30. Lipase 15. AST 60. ALT 10. Alk phos 293. She is continued on Symbicort, DuoNeb inhalations, IV Solu-Medrol. Pain is adequately controlled. The patient is seen today 07/27/2022 in follow-up on the regular medical floor. She is awake and alert in no acute distress. She is sitting up in bed. She did undergo a liver biopsy yesterday. She tolerated the procedure well. She denies any worsening shortness of breath, cough or congestion. Still with some abdominal discomfort. She is maintaining O2 saturation in the 90s on 3 L/m per nasal cannula. Afebrile. She remains on DuoNeb inhalations, IV Solu-Medrol and Symbicort. The patient is seen today 07/28/2022 in follow-up on the regular medical floor. She is resting comfortably in bed. Awake and alert in no acute distress. No significant events overnight. No worsening shortness of breath cough or congestion. She is feeling better. No nausea. Eating breakfast. No new labs today. Liver biopsy results pending. Continued on DuoNeb inhalations, Symbicort, IV Solu-Medrol. The patient is seen today July 30 2022 in follow-up on the regular medical floor. She is currently sitting up in bed. Awake and alert in no acute distress. She denies any shortness of breath, cough or congestion. No fever or chills. She is still having some underlying right upper quadrant discomfort and liver biopsy results are still pending. She is maintaining O2 saturations in the 90s on 2 L/m per cannula. no iv fluids. she is continued on duoneb inhalations, symbicort, prednisone taper. The patient is seen today 07/31/2022 in follow-up on the regular medical floor. She is sitting up in bed having breakfast. Awake and alert in no acute distress. She denies any worsening shortness of breath, cough or congestion. She is maintaining O2 saturations in the 90s on 3 L/m per nasal cannula. She does have home oxygen. She is having some issues with weakness. Stating that she fell when her legs gave out earlier today this morning with out any injuries. She is requiring pain medications including Percocet, morphine which may need adjusting. Last white count 21.1. Hemoglobin 9.3. Sodium 133. Potass ium 4.8. BUN 14. Creatinine 0.6. AST 61. ALT 17. She is continued on duoneb inhalations, symbicort, prednisone taper. The patient is seen today 08/01/2022 in follow-up on the regular growth regular medical floor. She is awake and alert in no acute distress. Sitting up having breakfast. Maintaining good O2 saturations in the upper 90s on 3 L/m per nasal cannula. Liver biopsy was positive for metastatic non-small cell carcinoma having features of poorly differentiated adenocarcinoma. Computed tomography scan of the abdomen and pelvis revealed multiple enlarged liver mass not change compared to previous. Consistent with metastatic disease. Right ovarian cyst without change. She remains on DuoNeb inhalations, Symbicort, prednisone taper. She had been seen by infectious disease regarding fevers. Empirically on Unasyn. Cultures pending. Procalcitonin pending. Objective - Vital Signs Vital signs: Vital Signs Temp 98.4 F 08/01/22 05:01 Pulse 91 08/01/22 05:01 Resp 16 08/01/22 05:01 BP 93/64 08/01/22 05:01 Pulse Ox 98 08/01/22 05:01 FiO2 Intake & Output 07/31/22 08/01/22 08/01/22 18:59 06:59 18:59 Intake Total 600 Balance 600 Weight 49.895 kg Intake: Intake, IV Titration 600 Amount Ampicillin-Sulbactam 3 gm 100 In Sodium Chloride 0.9% 100 ml @ 200 mls/hr IVPB Q6HR [facility] Rx#:[id number] Sodium Chloride 0.9% 500 500 ml 500 ml @ 999 mls/hr IV .Q31M ONE Rx#:[id number] Other: Voiding Method Toilet # Voids 3 1 - Exam GENERAL EXAM: Alert, 52-year-old female, appears older than stated age, on 3 L nasal cannula, comfortable in no apparent distress. HEAD: Normocephalic. EYES: Normal reaction of pupils, equal size. NOSE: Clear with pink turbinates. THROAT: No erythema or exudates. NECK: No masses, no JVD. CHEST: No chest wall deformity. LUNGS: Equal air entry with no crackles, wheeze, rhonchi or dullness. Diminished. CVS: S1 and S2 normal with no audible murmur, regular rhythm. ABDOMEN: Positive hepatomegaly, tenderness, distended, normal bowel sounds. SPINE: No scoliosis or deformity SKIN: No rashes CENTRAL NERVOUS SYSTEM: No focal deficits, tone is normal in all 4 extremities. EXTREMITIES: There is no peripheral edema. No clubbing, no cyanosis. Peripheral pulses are intact. - Labs CBC & Chem 7: 07/31/22 04:57 07/31/22 04:57 Labs: Abnormal Lab Results - Last 24 Hours (Table) 07/31/22 07/31/22 08/01/22 Range/Units 04:57 04:57 06:10 WBC 26.23 H (4.50-10.00) X 10*3/uL RBC 2.95 L (4.10-5.20) X 10*6/uL Hgb 9.0 L (12.0-15.0) g/dL Hct 27.9 L (37.2-46.3) % Plt Count 605 H (140-440) X 10*3/uL Immature Gran # 0.48 H (0.00-0.04) X 10*3/uL Neutrophils # 23.03 H (1.80-7.70) X 10*3/uL Monocytes # 1.33 H (0.20-1.00) X 10*3/uL Eosinophils # 0.02 L (0.04-0.35) X 10*3/uL Sodium 128 L (135-145) mmol/L Chloride 93 L (96-109) mmol/L Carbon Dioxide 31.0 H (20.0-27.5) mmol/L Anion Gap 4.00 L (10.00-18.00) mmol/L Total Bilirubin 0.20 L (0.30-1.20) mg/dL AST 53 H (13-35) U/L Alkaline Phosphatase 298 H (41-126) U/L Total Protein 5.0 L (6.2-8.2) g/dL Albumin 2.6 L (3.8-4.9) g/dL Albumin/Globulin Ratio 1.08 L (1.60-3.17) g/dL Urine Protein Trace H (Negative) Assessment and Plan Assessment: Abdominal discomfort. Computed tomography scan of the abdomen and pelvis rev eals a very large hepatic masses measuring up to 14.4 cm which have increased by 1 cm compared to 07/14/2022. The largest measured at 14.4 and protrudes against anterior abdominal wall. These occupy significant portion of the hepatic parenchymal. There is also prominent fluid-filled small bowel loops and jejunal fold thickening along the left side of the abdomen. Findings may represent enteritis. Mild abdominal pelvic ascites. Liver biopsy performed 07/26/2022, pathology positive for metastatic adenocarcinoma Lung masses. Her most recent CAT scan of the chest was performed at [facility] in the emergency room with complaints of shortness of breath. She was found to have a solid lung nodule measuring 2.4 cm in the left upper lobe medially as well as a nodular density pleural-based measuring 1 cm. Cavitary type masses seen within the left lung apex measuring 2.6 x 2.0 which also could reflect infected left apical bulla. There is noted hepatic masses. PET scan which was performed on 07/16/2022 which did reveal left upper lobe enlarging nodule with increased FDG activity consistent with malignancy. There is also a left pulmonary hilum lymph node with FDG activity. There is multiple centrally necrotic masses within the liver with peripheral metabolic activity. Suspect metastatic from lung. Liver biopsy performed 07/26/2022, pathology positive for metastatic adenocarcinoma Possible 2.6 cm cystic lesion of the right ovary measuring 3.6 x 2.4 cm. Further characterization with pelvic ultrasound on an emergent basis recommended. Cannot rule out neoplasm. Chronic and ongoing tobacco dependence of approximately 40 years Acute exacerbation of chronic obstructive pulmonary disease, severe with an FEV1 value 33% of predicted Chronic anxiety/depression Chronic neck and back pain History of pulmonary embolism Hyperlipidemia Plan: The patient was seen and evaluated CAT scans, labs and medications reviewed Empirically on Unasyn, cultures and Procalcitonin pending Patient is aware of her metastatic cancer diagnosis Plan Will be to follow up with medical oncology in the outpatient setting Upon discharge continue her home Trelegy, ProAir, DuoNeb inhalations Complete a prednisone taper Has home oxygen Keep appointment as scheduled 08/17/2022 in our office I have personally seen and examined the patient, performed the documentation and the assessment and plan as written. Number of minutes spent on the visit: 10.
--- NOTE | 2022-08-01 08:56 | CT ---
EXAMINATION TYPE: CT chest wo con DATE OF EXAM: 08/01/2022 COMPARISON: CTA chest September 18, 2021. PET/CT July 14, 2022 HISTORY: HAP. History of lung cancer metastatic to the liver. Shortness of breath CT DLP: 121.4 mGycm. Automated Exposure Control for Dose Reduction was Utilized. TECHNIQUE: CT scan of the thorax is performed without IV contrast. FINDINGS: LUNGS: Moderate to advanced underlying emphysematous change is remonstrated. Persistent 3.3 x 1.6 cm spiculated left upper lobe nodule axial image 10 that is suspicious on recent PET/CT. Persistent susp icious anterior 2.2 x 2.1 cm left upper to midlung nodule axial image 27. Scattered mild to moderate upper lung linear parenchymal scarring. No pleural effusion or pneumothorax seen bilaterally. No new consolidation. There is new or less well-visualized 8 x 5 mm right upper lobe nodule axial image 15 v ersus recent PET/CT. MEDIASTINUM: Lack of IV contrast is noted to limit evaluation for mediastinal and especially hilar ad enopathy. There are no definitive greater than 1 cm hilar or mediastinal lymph nodes. No cardiomega ly or pericardial effusion is seen. Stable ascending aortic aneurysm up to 4.4 cm axial image 29. Cor onary artery calcification redemonstrated which is noted marked of underlying coronary artery disease . Mild calcified plaque of the aorta extends into branch vessels OTHER: Heterogeneous enlarged liver with enlarging Central mass measuring 14.6 cm long axis axial rodolfo ge 38 even more prominent versus recent PET/CT. Additional heterogeneous masses are partially imaged. Cholecystectomy clips are redemonstrated. Bilateral breast implants are redemonstrated. Slight scoli otic curvature in the upper thoracic spine. IMPRESSION: Moderate to advanced emphysematous change with suspicious left lung lesions redemonstrate d. No new acute pulmonary process. Hepatomegaly with metastatic disease redemonstrated.
[2022-08-01 09:02] LABS: Basophils # (A) 0.03 X 10*3/uL (0.00-0.10); Basophils % (A) 0.1 %; Eosinophils # (A) 0.07 X 10*3/uL (0.04-0.35); Eosinophils % (A) 0.3 %; HCT 26.7 % (37.2-46.3); HGB 8.6 g/dL (12.0-15.0); Immature Grans, Automated 2.3 %; Lymphocytes # (A) 1.18 X 10*3/uL (0.90-5.00); Lymphocytes % (A) 5.1 %; MCH 30.1 pg (27.0-32.0); MCHC 32.2 g/dL (32.0-37.0); MCV 93.4 fL (80.0-97.0); Mean Platelet Volume 9.3 fL (9.5-12.2); Monocytes # (A) 1.24 X 10*3/uL (0.20-1.00); Monocytes % (A) 5.4 %; NRBC Per 100 WBC 0 /100 WBCS (0.0-0.0); Neutrophils # (A) 19.93 X 10*3/uL (1.80-7.70); Neutrophils % (A) 86.8 %; Platelet Count 600 X 10*3/uL (140-440); RBC 2.86 X 10*6/uL (4.10-5.20); RDW 13.1 % (11.5-14.5); WBC 22.99 X 10*3/uL (4.50-10.00)
[2022-08-01 09:27] LABS: African American GFR (CKD) 98.2 (60.0-200.0); Albumin 2.6 g/dL (3.8-4.9); Albumin/Globulin Ratio 1.08 (1.60-3.17); Anion Gap 10.7 mmol/L (10.00-18.00); BUN/Creat Ratio 14.63 Ratio (12.00-20.00); Blood Urea Nitrogen 11.7 mg/dL (9.0-27.0); C Reactive Protein 15.4 mg/dL (0.00-0.80); Calcium 8.8 mg/dL (8.7-10.3); Carbon Dioxide 29.3 mmol/L (20.0-27.5); Globulin 2.4 g/dL (1.6-3.3); Non-African American GFR(CKD) 84.8 (60.0-200.0); Potassium 4.5 mmol/L (3.5-5.5); Total Bilirubin 0.2 mg/dL (0.30-1.20)
[2022-08-01] MEDS: oxyCODONE-APAP 7.5-325MG 1 EACH TAB PO PRN (15:51)
--- NOTE | 2022-08-01 18:28 | P.PN ---
Subjective Progress Note Date: 08/01/22 Principal diagnosis: Intractable abd pain, liver lesions. In f/u today pt denies fever, nausea, vomiting, SOB, abd pain fairly well controlled. Objective - Vital Signs Vital signs: Vital Signs Temp 97.9 F 08/01/22 11:11 Pulse 86 08/01/22 11:11 Resp 16 08/01/22 11:11 BP 99/69 08/01/22 11:11 Pulse Ox 97 08/01/22 11:11 FiO2 Intake & Output 07/31/22 08/01/22 08/01/22 18:59 06:59 18:59 Intake Total 600 Balance 600 Weight 49.895 kg Intake: Intake, IV Titration 600 Amount Ampicillin-Sulbactam 3 gm 100 In Sodium Chloride 0.9% 100 ml @ 200 mls/hr IVPB Q6HR [facility] Rx#:[id number] Sodium Chloride 0.9% 500 500 ml 500 ml @ 999 mls/hr IV .Q31M ONE Rx#:[id number] Other: Voiding Method Toilet # Voids 3 1 - Constitutional Constitutional Comment(s): petite General appearance: Present: average body habitus, cooperative, no acute distress - EENT Eyes: Present: anicteric sclerae, EOMI ENT: Present: hearing grossly normal - Respiratory Details: resp even and unlabored - Neurologic Neurologic: Present: CNII-XII intact - Musculoskeletal Musculoskeletal: Present: strength equal bilaterally - Psychiatric Psychiatric: Present: A&O x's 3, appropriate affect, intact judgment & insight - Labs CBC & Chem 7: 08/01/22 06:32 08/01/22 06:32 Labs: Abnormal Lab Results - Last 24 Hours (Table) 08/01/22 08/01/22 08/01/22 Range/Units 06:10 06:32 06:32 WBC 22.99 H (4.50-10.00) X 10*3/uL RBC 2.86 L (4.10-5.20) X 10*6/uL Hgb 8.6 L (12.0-15.0) g/dL Hct 26.7 L (37.2-46.3) % Plt Count 600 H (140-440) X 10*3/uL MPV 9.3 L (9.5-12.2) fL Immature Gran # 0.54 H (0.00-0.04) X 10*3/uL Neutrophils # 19.93 H (1.80-7.70) X 10*3/uL Monocytes # 1.24 H (0.20-1.00) X 10*3/uL Sodium (135-145) mmol/L Chloride (96-109) mmol/L Carbon Dioxide (20.0-27.5) mmol/L Total Bilirubin (0.30-1.20) mg/dL AST (13-35) U/L Alkaline Phosphatase (41-126) U/L C-Reactive Protein (0.00-0.80) mg/dL Total Protein (6.2-8.2) g/dL Albumin (3.8-4.9) g/dL Albumin/Globulin Ratio (1.60-3.17) g/dL Procalcitonin >100.00 H (0.02-0.09) ng/mL Urine Protein Trace H (Negative) 08/01/22 Range/Units 06:32 WBC (4.50-10.00) X 10*3/uL RBC (4.10-5.20) X 10*6/uL Hgb (12.0-15.0) g/dL Hct (37.2-46.3) % Plt Count (140-440) X 10*3/uL MPV (9.5-12.2) fL Immature Gran # (0.00-0.04) X 10*3/uL Neutrophils # (1.80-7.70) X 10*3/uL Monocytes # (0.20-1.00) X 10*3/uL Sodium 133 L (135-145) mmol/L Chloride 93 L (96-109) mmol/L Carbon Dioxide 29.3 H (20.0-27.5) mmol/L Total Bilirubin 0.20 L (0.30-1.20) mg/dL AST 57 H (13-35) U/L Alkaline Phosphatase 267 H (41-126) U/L C-Reactive Protein 15.40 H (0.00-0.80) mg/dL Total Protein 5.0 L (6.2-8.2) g/dL Albumin 2.6 L (3.8-4.9) g/dL Albumin/Globulin Ratio 1.08 L (1.60-3.17) g/dL Procalcitonin (0.02-0.09) ng/mL Urine Protein (Negative) - Imaging and Cardiology CT scan - chest: report reviewed Assessment and Plan (1) Abdominal pain Current Visit: Yes Status: Acute Code(s): R10.9 - UNSPECIFIED ABDOMINAL PAIN SNOMED Code(s): 76661219 (2) Liver mass Current Visit: Yes Status: Acute Priority: High Code(s): R16.0 - HEPATOMEGALY, NOT ELSEWHERE CLASSIFIED SNOMED Code(s): 186268669 Plan: Reviewed with pt path results. Based on IHC staining upper GI/pancreatobiliary considered, lung primary can't be excluded-TF1 and Napsin neg, CK7 and CDX2 positive. On DC will sched pt for EGD/EUS of pancreas to assess for primary upper GI lesion Will request tissue to be sent for cancertype ID, reflux to Neotype for NGS and PD-L1 testing F/U with Oncology in about 2 weeks for results of all testing. Pt verbalized understanding. Ok for DC from Hem/Onc once cleared by Attending and Consulting Physicians Time with Patient: Greater than 30
[2022-08-01] MEDS: traZODone HCL 100 MG TAB PO SCH (20:38)
[2022-08-01] MEDS: DESVENLAFAXINE SUCCINATE 50 MG TAB.ER.24H PO SCH ×2 (20:39)
[2022-08-01] MEDS: NON FORMULARY DRUG (Cariprazine Hcl [Vraylar] 3 MG Capsule) PO SCH (20:39)
[2022-08-02] MEDS: AMPICILLIN-SULBACTAM 3 GM in SODIUM CHLORIDE 0.9% 100 ML IVPB SCH ×4 (00:11→18:11)
[2022-08-02] MEDS: oxyCODONE-APAP 7.5-325MG 1 EACH TAB PO PRN (05:30)
[2022-08-02] MEDS: SYMBICORT 160-4.5 MCG INHALER INHALATION SCH ×2 (07:22→20:13)
[2022-08-02] MEDS: IPRATROPIUM-ALBUTEROL 3 ML NEB INHALATION SCH ×4 (07:22→20:13)
[2022-08-02] MEDS: FOLIC ACID 1 MG TAB PO SCH (08:39)
[2022-08-02] MEDS: predniSONE 20 MG TAB PO SCH (08:40)
[2022-08-02] MEDS: FAMOTIDINE 20 MG TAB PO SCH ×2 (08:40→20:34)
[2022-08-02] MEDS: DOCUSATE 100 MG CAP PO SCH ×2 (08:40→20:34)
[2022-08-02] MEDS: polyethylene glycoL 3350 17 GM POWD.PACK PO SCH (08:40)
[2022-08-02 08:41] LABS: Basophils # (A) 0.04 X 10*3/uL (0.00-0.10); Basophils % (A) 0.2 %; Eosinophils # (A) 0.08 X 10*3/uL (0.04-0.35); Eosinophils % (A) 0.4 %; HCT 27.5 % (37.2-46.3); HGB 8.9 g/dL (12.0-15.0); Immature Grans, Automated 4.1 %; Lymphocytes # (A) 1.15 X 10*3/uL (0.90-5.00); Lymphocytes % (A) 5.2 %; MCH 30.4 pg (27.0-32.0); MCHC 32.4 g/dL (32.0-37.0); MCV 93.9 fL (80.0-97.0); Mean Platelet Volume 9.4 fL (9.5-12.2); Monocytes # (A) 1.18 X 10*3/uL (0.20-1.00); Monocytes % (A) 5.3 %; NRBC Per 100 WBC 0 /100 WBCS (0.0-0.0); Neutrophils # (A) 18.87 X 10*3/uL (1.80-7.70); Neutrophils % (A) 84.8 %; Platelet Count 629 X 10*3/uL (140-440); RBC 2.93 X 10*6/uL (4.10-5.20); RDW 13.2 % (11.5-14.5); WBC 22.22 X 10*3/uL (4.50-10.00)
[2022-08-02] MEDS: MORPHINE SULFATE ER 30 MG TABLET PO SCH ×2 (08:43→20:33)
[2022-08-02 08:46] LABS: African American GFR (CKD) 115.5 (60.0-200.0); Albumin 2.6 g/dL (3.8-4.9); Albumin/Globulin Ratio 1.08 (1.60-3.17); Anion Gap 10.9 mmol/L (10.00-18.00); BUN/Creat Ratio 14.86 Ratio (12.00-20.00); Blood Urea Nitrogen 10.4 mg/dL (9.0-27.0); Calcium 8.8 mg/dL (8.7-10.3); Carbon Dioxide 30.1 mmol/L (20.0-27.5); Globulin 2.4 g/dL (1.6-3.3); Non-African American GFR(CKD) 99.6 (60.0-200.0); Potassium 4.6 mmol/L (3.5-5.5); Total Bilirubin 0.2 mg/dL (0.30-1.20)
--- NOTE | 2022-08-02 08:47 | P.PN ---
Subjective Progress Note Date: 08/02/22 This a very pleasant 52-year-old female patient who has a history of anxiety, chronic back pain, chronic neck pain, depression, hypertension, pulmonary embolism. She also has a 40 year history of chronic and ongoing tobacco dependence and chronic obstructive pulmonary disease, severe with an FEV1 value 33% of predicted. She is maintained on Trelegy ellipta, DuoNeb inhalations, pro-air. She also has a known history of a lung mass that had been followed in the outpatient setting. Her most recent CAT scan of the chest was performed at [facility] in the emergency room with complaints of shortness of breath. She was found to have a solid lung nodule measuring 2.4 cm in the left upper lobe medially as well as a nodular density pleural-based measuring 1 cm. Cavitary type masses seen within the left lung apex measuring 2.6 x 2.0 which also could reflect infected left apical bulla. There is noted hepatic masses. She been seen and evaluated by Dr. Walton in our office as a post hospital follow-up. He ordered a PET scan which was performed on 07/16/2022 which did reveal left upper lobe enlarging nodule with increased FDG activity consistent with malignancy. There is also a left pulmonary hilum lymph node with FDG activity. There is multiple centrally necrotic masses within the liver with peripheral metabolic activity. Suspect metastatic from lung. She had been scheduled for a liver biopsy on 08/06/2022. She presented here to the emergency room yesterday with ongoing abdominal pain mostly in the right upper quadrant. White count 16.2. Hemoglobin 10.4. Sodium 131. Potassium 4.1. BUN 7. Creatinine 0.65. AST 43. ALT 13. Amylase less than 30. Lipase 15. Carroll virus not detected. Influenza screen negative. Chest x-ray shows evidence of COPD. Scarring in the upper lobes which is increased slightly compared to old exam. There is a retrosternal mass in the anterior segment left upper lobe. She is seen in consultation in the emergency department. Currently sitting up on the stretcher. Awake and alert in no acute distress. She is maintaining O2 saturations up to 100% on 3 L/m per nasal cannula. She's afebrile. Hemodynamically stable. She is having abdominal distention and discomfort. A computed tomography scan of the abdomen and pelvis reveals a very large hepatic masses measuring up to 14.4 cm which have increased by 1 cm compared to . The largest measured at 14.4 and protrudes against anterior abdominal wall. These occupy significant portion of the hepatic parenchymal. There is also prominent fluid-filled small bowel loops and jejunal fold thickening along the left side of the abdomen. Findings may represent enteritis. Mild abdominal pelvic ascites. The patient is seen today 07/26/2022 on the regular medical floor in follow-up. She is currently sitting up in bed. Awake and alert in no acute distress. Feeling a bit better today compared to yesterday. Still with some abdominal discomfort. Still with some cough and congestion. She is maintaining O2 saturations in the mid 90s on 3 L/m per nasal cannula. Afebrile. White count 15.8. Hemoglobin 8.9. Sodium 135. Potassium 3.9. BUN 10. Creatinine 0.7. Amylase less than 30. Lipase 15. AST 60. ALT 10. Alk phos 293. She is continued on Symbicort, DuoNeb inhalations, IV Solu-Medrol. Pain is adequately controlled. The patient is seen today 07/27/2022 in follow-up on the regular medical floor. She is awake and alert in no acute distress. She is sitting up in bed. She did undergo a liver biopsy yesterday. She tolerated the procedure well. She denies any worsening shortness of breath, cough or congestion. Still with some abdominal discomfort. She is maintaining O2 saturation in the 90s on 3 L/m per nasal cannula. Afebrile. She remains on DuoNeb inhalations, IV Solu-Medrol and Symbicort. The patient is seen today 07/28/2022 in follow-up on the regular medical floor. She is resting comfortably in bed. Awake and alert in no acute distress. No significant events overnight. No worsening shortness of breath cough or congestion. She is feeling better. No nausea. Eating breakfast. No new labs today. Liver biopsy results pending. Continued on DuoNeb inhalations, Symbicort, IV Solu-Medrol. The patient is seen today July 30 2022 in follow-up on the regular medical floor. She is currently sitting up in bed. Awake and alert in no acute distress. She denies any shortness of breath, cough or congestion. No fever or chills. She is still having some underlying right upper quadrant discomfort and liver biopsy results are still pending. She is maintaining O2 saturations in the 90s on 2 L/m per cannula. no iv fluids. she is continued on duoneb inhalations, symbicort, prednisone taper. The patient is seen today 07/31/2022 in follow-up on the regular medical floor. She is sitting up in bed having breakfast. Awake and alert in no acute distress. She denies any worsening shortness of breath, cough or congestion. She is maintaining O2 saturations in the 90s on 3 L/m per nasal cannula. She does have home oxygen. She is having some issues with weakness. Stating that she fell when her legs gave out earlier today this morning with out any injuries. She is requiring pain medications including Percocet, morphine which may need adjusting. Last white count 21.1. Hemoglobin 9.3. Sodium 133. Potass ium 4.8. BUN 14. Creatinine 0.6. AST 61. ALT 17. She is continued on duoneb inhalations, symbicort, prednisone taper. The patient is seen today 08/01/2022 in follow-up on the regular [facility] regular medical floor. She is awake and alert in no acute distress. Sitting up having breakfast. Maintaining good O2 saturations in the upper 90s on 3 L/m per nasal cannula. Liver biopsy was positive for metastatic non-small cell carcinoma having features of poorly differentiated adenocarcinoma. Computed tomography scan of the abdomen and pelvis revealed multiple enlarged liver mass not change compared to previous. Consistent with metastatic disease. Right ovarian cyst without change. She remains on DuoNeb inhalations, Symbicort, prednisone taper. She had been seen by infectious disease regarding fevers. Empirically on Unasyn. Cultures pending. Procalcitonin pending. The patient is seen today 08/02/2022 in follow-up on the regular medical floor. She is resting comfortably in bed. Awake and alert in no acute distress. Maintaining O2 saturations up to 100% on 3 L/m per nasal cannula. The patient had another CAT scan of the chest yesterday that revealed moderate to advanced e mphysematous changes with suspicious left lung lesions redemonstrated. No new acute pulmonary process. Hepatomegaly with metastatic disease. Liver biopsy was positive for metastatic adenocarcinoma. White count 20.9. Hemoglobin 8.6. Sodium 133. Potassium 4.5. AST 57. ALT 14. C-reactive protein 15.4. Pro- calcitonin greater than 100. She remains on Unasyn per infectious disease. Objective - Vital Signs Vital signs: Vital Signs Temp 97.9 F 08/02/22 03:52 Pulse 92 08/02/22 07:36 Resp 14 08/02/22 03:52 BP 103/71 08/02/22 03:52 Pulse Ox 100 08/02/22 03:52 FiO2 Intake & Output 08/01/22 08/02/22 08/02/22 18:59 06:59 18:59 Intake Total 100 Balance 100 Intake: Intake, IV Titration 100 Amount Ampicillin-Sulbactam 3 gm 100 In Sodium Chloride 0.9% 100 ml @ 200 mls/hr IVPB Q6HR [facility] Rx#:[id number] Other: Voiding Method Toilet # Voids 4 1 - Exam GENERAL EXAM: Alert, pleasant 52-year-old female, appears older than stated age, on 3 L nasal cannula, comfortable in no apparent distress. HEAD: Normocephalic. EYES: Normal reaction of pupils, equal size. NOSE: Clear with pink turbinates. THROAT: No erythema or exudates. NECK: No masses, no JVD. CHEST: No chest wall deformity. LUNGS: Equal air entry with no crackles, wheeze, rhonchi or dullness. Diminished. CVS: S1 and S2 normal with no audible murmur, regular rhythm. ABDOMEN: Positive hepatomegaly, tenderness, distended, normal bowel sounds. SPINE: No scoliosis or deformity SKIN: No rashes CENTRAL NERVOUS SYSTEM: No focal deficits, tone is normal in all 4 extremities. EXTREMITIES: There is no peripheral edema. No clubbing, no cyanosis. Peripheral pulses are intact. - Labs CBC & Chem 7: 08/01/22 06:32 08/01/22 06:32 Labs: Abnormal Lab Results - Last 24 Hours (Table) 08/01/22 08/01/22 08/01/22 Range/Units 06:32 06:32 06:32 WBC 22.99 H (4.50-10.00) X 10*3/uL RBC 2.86 L (4.10-5.20) X 10*6/uL Hgb 8.6 L (12.0-15.0) g/dL Hct 26.7 L (37.2-46.3) % Plt Count 600 H (140-440) X 10*3/uL MPV 9.3 L (9.5-12.2) fL Immature Gran # 0.54 H (0.00-0.04) X 10*3/uL Neutrophils # 19.93 H (1.80-7.70) X 10*3/uL Monocytes # 1.24 H (0.20-1.00) X 10*3/uL Sodium 133 L (135-145) mmol/L Chloride 93 L (96-109) mmol/L Carbon Dioxide 29.3 H (20.0-27.5) mmol/L Total Bilirubin 0.20 L (0.30-1.20) mg/dL AST 57 H (13-35) U/L Alkaline Phosphatase 267 H (41-126) U/L C-Reactive Protein 15.40 H (0.00-0.80) mg/dL Total Protein 5.0 L (6.2-8.2) g/dL Albumin 2.6 L (3.8-4.9) g/dL Albumin/Globulin Ratio 1.08 L (1.60-3.17) g/dL Procalcitonin >100.00 H (0.02-0.09) ng/mL Microbiology - Last 24 Hours (Table) 07/31/22 11:19 Blood Culture - Preliminary Blood No Growth after 24 hours 07/31/22 11:23 Blood Culture - Preliminary Blood No Growth after 24 hours Assessment and Plan Assessment: Abdominal discomfort secondary to multiple liver masses positive for metastatic adenocarcinoma. Liver biopsy was done 07/26/2022. Suspect lung primary however upper GI/pancreaticobiliary is considered based on staining. Lung masses. Her most recent CAT scan of the chest was performed at [facility] in the emergency room with complaints of shortness of breath. She was found to have a solid lung nodule measuring 2.4 cm in the left upper lobe medially as well as a nodular density pleural-based measuring 1 cm. Cavitary type masses seen within the left lung apex measuring 2.6 x 2.0 which also could reflect infected left apical bulla. There is noted hepatic masses. PET scan which was performed on 07/16/2022 which did reveal left upper lobe enlarging nodule with increased FDG activity consistent with malignancy. There is also a left pulmonary hilum lymph node with FDG activity. There is multiple centrally necrotic masses within the liver with peripheral metabolic activity. Suspect metastatic from lung. Liver biopsy performed 07/26/2022, pathology positive for metastatic adenocarcinoma. Follow-up computed tomography scan of the chest revealed no new acute pulmonary process. Possible 2.6 cm cystic lesion of the right ovary measuring 3.6 x 2.4 cm. Further characterization with pelvic ultrasound on an emergent basis rec ommended. Cannot rule out neoplasm. Chronic and ongoing tobacco dependence of approximately 40 years Acute exacerbation of chronic obstructive pulmonary disease, severe with an FEV1 value 33% of predicted Chronic anxiety/depression Chronic neck and back pain History of pulmonary embolism Hyperlipidemia Leukocytosis proCalcitonin greater than 100. Currently on Unasyn. Cultures pending. Urinalysis negative. Plan: The patient was seen and evaluated CAT scans, labs and medications reviewed On Unasyn, calcitonin greater than 100, cultures pending Infectious diseases on the case Patient is aware of her metastatic cancer diagnosis Plan will be to follow up with medical oncology in the outpatient setting Upon discharge continue her home Trelegy, ProAir, DuoNeb inhalations Complete a prednisone taper Has home oxygen Keep appointment as scheduled 08/17/2022 in our office I have personally seen and examined the patient, performed the documentation and the assessment and plan as written. Number of minutes spent on the visit: 10.
--- NOTE | 2022-08-02 15:21 | MR ---
EXAMINATION TYPE: MR brain wo con DATE OF EXAM: 08/02/2022 3:04 PM COMPARISON: PET CT 07/14/2022, MRI brain 10/10/2015. CLINICAL INDICATION:Female, 52 years old with history of AMS Mets lung cancer. TECHNIQUE: Multi planar, multi sequence imaging was performed through the brain without the administr ation of contrast. FINDINGS: Motion degraded examination. The rodriguez-white junctions, ventricular system, and cisterns appear unremarkable. Patchy areas of high T2 signal intensity are seen within the periventricular white matter. These appear similar to prior examination in 2016. Midline structures show no abnormality. Diffusion-weighted imaging shows no evid ence of restricted diffusion. There is a focus of increased signal on diffusion weighted images that does not have corresponding low ADC values in the right frontal lobe cortex and likely represents T2 shine through. Postsurgical changes of the posterior right temporal lobe with the formation and surro unding gliosis related to prior aneurysm repair. The bone marrow signal is within normal limits. The paranasal sinuses and globes are unremarkable. Le ft posterior neck subcentimeter focus likely representing sebaceous cyst. No corresponding activity o n recent PET/CT. IMPRESSION: Limited evaluation due to motion degradation and lack of IV contrast. 1. No definitive evidence of intracranial mass or acute/subacute infarct. 2. Similar nonspecific white matter changes dating back to 2016, likely secondary to small vessel isc hemic disease.
--- NOTE | 2022-08-02 19:31 | P.PN ---
Subjective Progress Note Date: 08/02/22 Principal diagnosis: Intractable abd pain, liver lesions. In f/u today pt not having significant pain complaints, she has been started on folic acid, explained to her that she is going to be scheduled for an EGD and EUS outpatient. Patient explained her social situation, she is living and her mother's home, this is own by her sister. Patient denied to me concerns about becoming homeless, she also reports adequate access to food. She has an automobile. Objective - Vital Signs Vital signs: Vital Signs Temp 98.3 F 08/02/22 18:21 Pulse 97 08/02/22 18:21 Resp 17 08/02/22 18:21 BP 91/53 08/02/22 18:21 Pulse Ox 94 L 08/02/22 18:21 FiO2 Intake & Output 08/02/22 08/02/22 08/03/22 06:59 18:59 06:59 Other: Voiding Method Toilet Toilet # Voids 1 2 - Constitutional General appearance: Present: cooperative, no acute distress, thin - EENT Eyes: Present: anicteric sclerae, EOMI ENT: Present: hearing grossly normal - Respiratory Respiratory: bilateral: CTA - Cardiovascular Rhythm: regular Heart sounds: normal: S1, S2 Abnormal Heart Sounds: Absent: systolic murmur, diastolic murmur, rub, S3 Gallop, S4 Gallop, click, other - Peripheral edema leg Peripheral Edema: bilateral: None - Musculoskeletal Musculoskeletal: Present: strength equal bilaterally - Psychiatric Psychiatric: Present: A&O x's 3, appropriate affect, intact judgment & insight - Labs CBC & Chem 7: 08/02/22 05:19 08/02/22 05:19 Labs: Abnormal Lab Results - Last 24 Hours (Table) 08/02/22 08/02/22 Range/Units 05:19 05:19 WBC 22.22 H (4.50-10.00) X 10*3/uL RBC 2.93 L (4.10-5.20) X 10*6/uL Hgb 8.9 L (12.0-15.0) g/dL Hct 27.5 L (37.2-46.3) % Plt Count 629 H (140-440) X 10*3/uL MPV 9.4 L (9.5-12.2) fL Immature Gran # 0.90 H (0.00-0.04) X 10*3/uL Neutrophils # 18.87 H (1.80-7.70) X 10*3/uL Monocytes # 1.18 H (0.20-1.00) X 10*3/uL Sodium 133 L (135-145) mmol/L Chloride 92 L (96-109) mmol/L Carbon Dioxide 30.1 H (20.0-27.5) mmol/L Total Bilirubin 0.20 L (0.30-1.20) mg/dL AST 59 H (13-35) U/L Alkaline Phosphatase 277 H (41-126) U/L Total Protein 5.0 L (6.2-8.2) g/dL Albumin 2.6 L (3.8-4.9) g/dL Albumin/Globulin Ratio 1.08 L (1.60-3.17) g/dL Microbiology - Last 24 Hours (Table) 07/31/22 11:19 Blood Culture - Preliminary Blood No Growth after 48 hours 07/31/22 11:23 Blood Culture - Preliminary Blood No Growth after 48 hours Assessment and Plan (1) Abdominal pain Current Visit: Yes Status: Acute Code(s): R10.9 - UNSPECIFIED ABDOMINAL PAIN SNOMED Code(s): 51073860 (2) Liver mass Current Visit: Yes Status: Acute Priority: High Code(s): R16.0 - HEPATOMEGALY, NOT ELSEWHERE CLASSIFIED SNOMED Code(s): 320677432 Plan: On DC will sched pt for EGD/EUS of pancreas to assess for primary upper GI lesion specimen requested so it can be sent for cancertype ID, reflux to Neotype for NGS and PD-L1 testing F/U with Oncology in about 2 weeks for results of all testing. Pt verbalized understanding. Nursing is reporting patient having hallucinations. Dr. Varela ordered MRI of the brain to rule out metastatic disease. Ok for DC from Hem/Onc once cleared by Attending and Consulting Physicians
[2022-08-02] MEDS: NON FORMULARY DRUG (Cariprazine Hcl [Vraylar] 3 MG Capsule) PO SCH (20:20)
[2022-08-02] MEDS: traZODone HCL 100 MG TAB PO SCH (20:33)
[2022-08-02] MEDS: DESVENLAFAXINE SUCCINATE 50 MG TAB.ER.24H PO SCH ×2 (20:34)
--- NOTE | 2022-08-02 21:56 | PN ---
PROGRESS NOTE SUBJECTIVE: A 52-year-old white female. She was little confused yesterday, stopped medications that could be causing her confusion including Ditropan, gabapentin, and discomfort on her pain medicine as she has metastatic cancer, being treated for septic workup with elevated white count, now is 22.9, hemoglobin is 8.6, sodium 133, potassium 4.5. Underwent a CAT scan of the chest, monitor advanced emphysema, suspicious left lung lesions re-demonstrated, hepatomegaly with metastatic disease, some clear-cut pneumonia, waiting for urine culture. Urine apparently is negative metabolic encephalopathy. She was apparently seeing some babies last night in her room, so I stopped some medications last night. Septic workup is in place. She is saturating 97% on 3 L. OBJECTIVE: VITAL SIGNS: Temperature 97.9, pulse 80, respiratory rate 16-18. ASSESSMENT: Metabolic encephalopathy, metastatic lung cancer to the liver. Prognosis is extremely guarded. Wait for biopsy to be done and continue current treatments for possible outpatient treatment for cancer at this point. Apparently, her metastatic non-small cell cancer is poorly differentiated adenocarcinoma, so some treatment for that going and prognosis is guarded. MMODL / IJN: [id number] /
[2022-08-03] MEDS: AMPICILLIN-SULBACTAM 3 GM in SODIUM CHLORIDE 0.9% 100 ML IVPB SCH ×5 (00:34→23:56)
--- NOTE | 2022-08-03 07:56 | P.PN ---
Subjective Progress Note Date: 08/03/22 This a very pleasant 52-year-old female patient who has a history of anxiety, chronic back pain, chronic neck pain, depression, hypertension, pulmonary embolism. She also has a 40 year history of chronic and ongoing tobacco dependence and chronic obstructive pulmonary disease, severe with an FEV1 value 33% of predicted. She is maintained on Trelegy ellipta, DuoNeb inhalations, pro-air. She also has a known history of a lung mass that had been followed in the outpatient setting. Her most recent CAT scan of the chest was performed at [facility] in the emergency room with complaints of shortness of breath. She was found to have a solid lung nodule measuring 2.4 cm in the left upper lobe medially as well as a nodular density pleural-based measuring 1 cm. Cavitary type masses seen within the left lung apex measuring 2.6 x 2.0 which also could reflect infected left apical bulla. There is noted hepatic masses. She been seen and evaluated by Dr. Walton in our office as a post hospital follow-up. He ordered a PET scan which was performed on 07/16/2022 which did reveal left upper lobe enlarging nodule with increased FDG activity consistent with malignancy. There is also a left pulmonary hilum lymph node with FDG activity. There is multiple centrally necrotic masses within the liver with peripheral metabolic activity. Suspect metastatic from lung. She had been scheduled for a liver biopsy on 08/06/2022. She presented here to the emergency room yesterday with ongoing abdominal pain mostly in the right upper quadrant. White count 16.2. Hemoglobin 10.4. Sodium 131. Potassium 4.1. BUN 7. Creatinine 0.65. AST 43. ALT 13. Amylase less than 30. Lipase 15. Carroll virus not detected. Influenza screen negative. Chest x-ray shows evidence of COPD. Scarring in the upper lobes which is increased slightly compared to old exam. There is a retrosternal mass in the anterior segment left upper lobe. She is seen in consultation in the emergency department. Currently sitting up on the stretcher. Awake and alert in no acute distress. She is maintaining O2 saturations up to 100% on 3 L/m per nasal cannula. She's afebrile. Hemodynamically stable. She is having abdominal distention and discomfort. A computed tomography scan of the abdomen and pelvis reveals a very large hepatic masses measuring up to 14.4 cm which have increased by 1 cm compared to . The largest measured at 14.4 and protrudes against anterior abdominal wall. These occupy significant portion of the hepatic parenchymal. There is also prominent fluid-filled small bowel loops and jejunal fold thickening along the left side of the abdomen. Findings may represent enteritis. Mild abdominal pelvic ascites. The patient is seen today 07/26/2022 on the regular medical floor in follow-up. She is currently sitting up in bed. Awake and alert in no acute distress. Feeling a bit better today compared to yesterday. Still with some abdominal discomfort. Still with some cough and congestion. She is maintaining O2 saturations in the mid 90s on 3 L/m per nasal cannula. Afebrile. White count 15.8. Hemoglobin 8.9. Sodium 135. Potassium 3.9. BUN 10. Creatinine 0.7. Amylase less than 30. Lipase 15. AST 60. ALT 10. Alk phos 293. She is continued on Symbicort, DuoNeb inhalations, IV Solu-Medrol. Pain is adequately controlled. The patient is seen today 07/27/2022 in follow-up on the regular medical floor. She is awake and alert in no acute distress. She is sitting up in bed. She did undergo a liver biopsy yesterday. She tolerated the procedure well. She denies any worsening shortness of breath, cough or congestion. Still with some abdominal discomfort. She is maintaining O2 saturation in the 90s on 3 L/m per nasal cannula. Afebrile. She remains on DuoNeb inhalations, IV Solu-Medrol and Symbicort. The patient is seen today 07/28/2022 in follow-up on the regular medical floor. She is resting comfortably in bed. Awake and alert in no acute distress. No significant events overnight. No worsening shortness of breath cough or congestion. She is feeling better. No nausea. Eating breakfast. No new labs today. Liver biopsy results pending. Continued on DuoNeb inhalations, Symbicort, IV Solu-Medrol. The patient is seen today July 30 2022 in follow-up on the regular medical floor. She is currently sitting up in bed. Awake and alert in no acute distress. She denies any shortness of breath, cough or congestion. No fever or chills. She is still having some underlying right upper quadrant discomfort and liver biopsy results are still pending. She is maintaining O2 saturations in the 90s on 2 L/m per cannula. no iv fluids. she is continued on duoneb inhalations, symbicort, prednisone taper. The patient is seen today 07/31/2022 in follow-up on the regular medical floor. She is sitting up in bed having breakfast. Awake and alert in no acute distress. She denies any worsening shortness of breath, cough or congestion. She is maintaining O2 saturations in the 90s on 3 L/m per nasal cannula. She does have home oxygen. She is having some issues with weakness. Stating that she fell when her legs gave out earlier today this morning with out any injuries. She is requiring pain medications including Percocet, morphine which may need adjusting. Last white count 21.1. Hemoglobin 9.3. Sodium 133. Potass ium 4.8. BUN 14. Creatinine 0.6. AST 61. ALT 17. She is continued on duoneb inhalations, symbicort, prednisone taper. The patient is seen today 08/01/2022 in follow-up on the regular [facility] regular medical floor. She is awake and alert in no acute distress. Sitting up having breakfast. Maintaining good O2 saturations in the upper 90s on 3 L/m per nasal cannula. Liver biopsy was positive for metastatic non-small cell carcinoma having features of poorly differentiated adenocarcinoma. Computed tomography scan of the abdomen and pelvis revealed multiple enlarged liver mass not change compared to previous. Consistent with metastatic disease. Right ovarian cyst without change. She remains on DuoNeb inhalations, Symbicort, prednisone taper. She had been seen by infectious disease regarding fevers. Empirically on Unasyn. Cultures pending. Procalcitonin pending. The patient is seen today 08/02/2022 in follow-up on the regular medical floor. She is resting comfortably in bed. Awake and alert in no acute distress. Maintaining O2 saturations up to 100% on 3 L/m per nasal cannula. The patient had another CAT scan of the chest yesterday that revealed moderate to advanced e mphysematous changes with suspicious left lung lesions redemonstrated. No new acute pulmonary process. Hepatomegaly with metastatic disease. Liver biopsy was positive for metastatic adenocarcinoma. White count 20.9. Hemoglobin 8.6. Sodium 133. Potassium 4.5. AST 57. ALT 14. C-reactive protein 15.4. Pro- calcitonin greater than 100. She remains on Unasyn per infectious disease. The patient is seen today over 2021 in follow-up on the regular medical floor. Awake and alert in no acute distress. Resting comfortably in bed. Her pain is well managed. She denies any worsening shortness of breath, cough or congestion. No hemoptysis. Maintaining O2 saturations up to 100% on 3 L/m per nasal cannula. Brain MRI did not reveal any evidence of metastasis. Plan per medical oncology is for EGD/EUS to evaluate the pancreas in the outpatient setting. The cultures revealed no growth. We'll see recent labs with white count of 22.2. Hemoglobin 8.9. Sodium 133. Potassium 4.6. BUN 10. Creatinine 0.7. AST 59. ALT 18. She remains on Unasyn. Continue on Symbicort, DuoNeb inhalations, prednisone taper. Objective - Vital Signs Vital signs: Vital Signs Temp 98.0 F 08/03/22 05:00 Pulse 93 08/03/22 05:00 Resp 16 08/03/22 05:00 BP 107/74 08/03/22 05:00 Pulse Ox 100 08/03/22 05:00 FiO2 Intake & Output 08/02/22 08/03/22 08/03/22 18:59 06:59 18:59 Intake Total 1070 Balance 1070 Intake: Oral 1070 Other: Voiding Method Toilet Toilet # Voids 2 3 - Exam GENERAL EXAM: Alert, 52-year-old female, appears older than stated age, on 3 L nasal cannula, comfortable in no apparent distress. HEAD: Normocephalic. EYES: Normal reaction of pupils, equal size. NOSE: Clear with pink turbinates. THROAT: No erythema or exudates. NECK: No masses, no JVD. CHEST: No chest wall deformity. LUNGS: Equal air entry with no crackles, wheeze, rhonchi or dullness. Diminished. CVS: S1 and S2 normal with no audible murmur, regular rhythm. ABDOMEN: Positive hepatomegaly, tenderness, distended, normal bowel sounds. SPINE: No scoliosis or deformity SKIN: No rashes CENTRAL NERVOUS SYSTEM: No focal deficits, tone is normal in all 4 extremities. EXTREMITIES: There is no peripheral edema. No clubbing, no cyanosis. Peripheral pulses are intact. - Labs CBC & Chem 7: 08/02/22 05:19 08/02/22 05:19 Labs: Abnormal Lab Results - Last 24 Hours (Table) 08/02/22 08/02/22 Range/Units 05:19 05:19 WBC 22.22 H (4.50-10.00) X 10*3/uL RBC 2.93 L (4.10-5.20) X 10*6/uL Hgb 8.9 L (12.0-15.0) g/dL Hct 27.5 L (37.2-46.3) % Plt Count 629 H (140-440) X 10*3/uL MPV 9.4 L (9.5-12.2) fL Immature Gran # 0.90 H (0.00-0.04) X 10*3/uL Neutrophils # 18.87 H (1.80-7.70) X 10*3/uL Monocytes # 1.18 H (0.20-1.00) X 10*3/uL Sodium 133 L (135-145) mmol/L Chloride 92 L (96-109) mmol/L Carbon Dioxide 30.1 H (20.0-27.5) mmol/L Total Bilirubin 0.20 L (0.30-1.20) mg/dL AST 59 H (13-35) U/L Alkaline Phosphatase 277 H (41-126) U/L Total Protein 5.0 L (6.2-8.2) g/dL Albumin 2.6 L (3.8-4.9) g/dL Albumin/Globulin Ratio 1.08 L (1.60-3.17) g/dL Microbiology - Last 24 Hours (Table) 07/31/22 11:19 Blood Culture - Preliminary Blood No Growth after 48 hours 07/31/22 11:23 Blood Culture - Preliminary Blood No Growth after 48 hours Assessment and Plan Assessment: Abdominal discomfort secondary to multiple liver masses positive for metastatic adenocarcinoma. Liver biopsy was done 07/26/2022. Suspect lung primary however upper GI/pancreaticobiliary is considered based on staining. MRI of the brain revealed no metastatic lesions. Plan is for EGD/EUS to evaluate the pancreas in the outpatient setting per medical oncology. Lung masses. Her most recent CAT scan of the chest was performed at [facility] in the emergency room with complaints of shortness of breath. She was found to have a solid lung nodule measuring 2.4 cm in the left upper lobe medially as well as a nodular density pleural-based measuring 1 cm. Cavitary type masses seen within the left lung apex measuring 2.6 x 2.0 which also could reflect infected left apical bulla. There is noted hepatic masses. PET scan which was performed on 07/16/2022 which did reveal left upper lobe enlarging nodule with increased FDG activity consistent with malignancy. There is also a left pulmonary hilum lymph node with FDG activity. There is multiple centrally necrotic masses within the liver with peripheral metabolic activity. Suspect metastatic from lung. Liver biopsy performed 07/26/2022, pathology positive for metastatic adenocarcinoma. Follow-up computed tomography scan of the chest revealed no new acute pulmonary process. Possible 2.6 cm cystic lesion of the right ovary measuring 3.6 x 2.4 cm. Further characterization with pelvic ultrasound on an emergent basis recommended. Cannot rule out neoplasm. Chronic and ongoing tobacco dependence of approximately 40 years Acute exacerbation of chronic obstructive pulmonary disease, severe with an FEV1 value 33% of predicted Chronic anxiety/depression Chronic neck and back pain History of pulmonary embolism Hyperlipidemia Leukocytosis proCalcitonin greater than 100. Currently on Unasyn. Cultures pending. Urinalysis negative. Plan: The patient was seen and evaluated MRI and medications reviewed Patient is aware of her metastatic cancer diagnosis Plan will be to follow up with medical oncology in the outpatient setting Upon discharge continue her home Trelegy, ProAir, DuoNeb inhalations Complete a prednisone taper Has home oxygen Keep appointment as scheduled 08/17/2022 in our office I have personally seen and examined the patient, performed the documentation and the assessment and plan as written. Number of minutes spent on the visit: 10.
[2022-08-03] MEDS: IPRATROPIUM-ALBUTEROL 3 ML NEB INHALATION SCH ×4 (08:36→20:26)
[2022-08-03] MEDS: SYMBICORT 160-4.5 MCG INHALER INHALATION SCH ×2 (08:36→20:26)
[2022-08-03] MEDS: polyethylene glycoL 3350 17 GM POWD.PACK PO SCH (08:51)
[2022-08-03] MEDS: FOLIC ACID 1 MG TAB PO SCH (08:51)
[2022-08-03] MEDS: MORPHINE SULFATE ER 30 MG TABLET PO SCH ×2 (08:51→21:37)
[2022-08-03] MEDS: predniSONE 20 MG TAB PO SCH (08:51)
[2022-08-03] MEDS: FAMOTIDINE 20 MG TAB PO SCH ×2 (08:52→21:37)
[2022-08-03] MEDS: DOCUSATE 100 MG CAP PO SCH ×2 (08:52→21:37)
--- NOTE | 2022-08-03 14:50 | P.PN ---
Subjective Progress Note Date: 08/03/22 Principal diagnosis: Intractable abd pain, liver lesions. In f/u today pt has no specific physical complaints. Daughters are confirming that patient's mental status is not her baseline. Patient is hallucinating, talking to her that parents. Patient is able to convey that she feels her abd pain is fairly well controlled on current analgesic regimen. She is tolerating oral intake. Objective - Vital Signs Vital signs: Vital Signs Temp 97.8 F 08/03/22 12:24 Pulse 86 08/03/22 13:20 Resp 18 08/03/22 12:24 BP 107/74 08/03/22 12:24 Pulse Ox 100 08/03/22 12:24 FiO2 Intake & Output 08/02/22 08/03/22 08/03/22 18:59 06:59 18:59 Intake Total 1070 Balance 1070 Intake: Oral 1070 Other: Voiding Method Toilet Toilet Toilet # Voids 2 3 - Constitutional General appearance: Present: average body habitus, cooperative, no acute distress - EENT Eyes: Present: anicteric sclerae, EOMI ENT: Present: hearing grossly normal - Respiratory Details: respirations even and unlabored at rest - Neurologic Neurologic: Present: CNII-XII intact (grossly) - Musculoskeletal Musculoskeletal: Present: generalized weakness, strength equal bilaterally - Psychiatric Psychiatric: Present: A&O x's 3, appropriate affect, intact judgment & insight - Labs CBC & Chem 7: 08/02/22 05:19 08/02/22 05:19 Labs: Microbiology - Last 24 Hours (Table) 07/31/22 11:19 Blood Culture - Preliminary Blood No Growth after 72 hours 07/31/22 11:23 Blood Culture - Preliminary Blood No Growth after 72 hours - Imaging and Cardiology MRI - head: report reviewed Assessment and Plan (1) Abdominal pain Current Visit: Yes Status: Acute Code(s): R10.9 - UNSPECIFIED ABDOMINAL PAIN SNOMED Code(s): 77729935 (2) Liver mass Current Visit: Yes Status: Acute Priority: High Code(s): R16.0 - HEPATOMEGALY, NOT ELSEWHERE CLASSIFIED SNOMED Code(s): 320490976 Plan: Discussed with patient's 2 daughters, one at the bedside, one on the phone, her hospital course. We reviewed the positive pathology results with the undetermined primary source of malignancy. Reviewed the plan. EGD/EUS to assess for an upper GI malignancy. Patient's daughter does prefer [facility]. We will schedule patient for the same at this facility. Patient's pathology specimen has been requested to be sent for cancertype ID, reflux to Neotype for NGS and PD-L1 testing F/U with Oncology in about 2 weeks for results of all testing. Pt and 2 daughters verbalized understanding. MRI of the brain was ordered without contrast, Will order with contrast. Ok for DC from Hem/Onc once cleared by Attending and Consulting Physicians
--- NOTE | 2022-08-03 15:26 | P.PN ---
Subjective Progress Note Date: 08/01/22 Principal diagnosis: Fever Patient is a 52 year old female chronic back pain hypertension history of smoking with the recent Finding of cavitating mass in the left upper lobe presented to the hospital right upper quadrant abdominal pain noticed to have a liver mass concerning for metastasis status post a biopsy developing a new fever on 07/31/2022. On today's evaluation that is 08/01/2022, the patient is afebrile patient is breathing comfortably currently on Atripla lesion is currently, patient denies having any chest pain she did have a cough a bit of any sputum no worsening abdominal pain no diarrhea Objective - Vital Signs Vital signs: Vital Signs Temp 97.9 F 08/01/22 11:11 Pulse 86 08/01/22 11:11 Resp 16 08/01/22 11:11 BP 99/69 08/01/22 11:11 Pulse Ox 97 08/01/22 11:11 FiO2 Intake & Output 07/31/22 08/01/22 08/01/22 18:59 06:59 18:59 Intake Total 600 Balance 600 Weight 49.895 kg Intake: Intake, IV Titration 600 Amount Ampicillin-Sulbactam 3 gm 100 In Sodium Chloride 0.9% 100 ml @ 200 mls/hr IVPB Q6HR [facility] Rx#:[id number] Sodium Chloride 0.9% 500 500 ml 500 ml @ 999 mls/hr IV .Q31M ONE Rx#:[id number] Other: Voiding Method Toilet # Voids 3 1 1 - Exam GENERAL DESCRIPTION: Middle-aged female lying in bed in no distress RESPIRATORY SYSTEM: Unlabored breathing , decreased breath sounds at bases HEART: S1 S2 regular rate and rhythm , ABDOMEN: Soft , no tenderness EXTREMITIES: No edema feet - Labs CBC & Chem 7: 08/02/22 05:19 08/02/22 05:19 Labs: Abnormal Lab Results - Last 24 Hours (Table) 08/01/22 08/01/22 08/01/22 Range/Units 06:10 06:32 06:32 WBC 22.99 H (4.50-10.00) X 10*3/uL RBC 2.86 L (4.10-5.20) X 10*6/uL Hgb 8.6 L (12.0-15.0) g/dL Hct 26.7 L (37.2-46.3) % Plt Count 600 H (140-440) X 10*3/uL MPV 9.3 L (9.5-12.2) fL Immature Gran # 0.54 H (0.00-0.04) X 10*3/uL Neutrophils # 19.93 H (1.80-7.70) X 10*3/uL Monocytes # 1.24 H (0.20-1.00) X 10*3/uL Sodium (135-145) mmol/L Chloride (96-109) mmol/L Carbon Dioxide (20.0-27.5) mmol/L Total Bilirubin (0.30-1.20) mg/dL AST (13-35) U/L Alkaline Phosphatase (41-126) U/L C-Reactive Protein (0.00-0.80) mg/dL Total Protein (6.2-8.2) g/dL Albumin (3.8-4.9) g/dL Albumin/Globulin Ratio (1.60-3.17) g/dL Procalcitonin >100.00 H (0.02-0.09) ng/mL Urine Protein Trace H (Negative) 08/01/22 Range/Units 06:32 WBC (4.50-10.00) X 10*3/uL RBC (4.10-5.20) X 10*6/uL Hgb (12.0-15.0) g/dL Hct (37.2-46.3) % Plt Count (140-440) X 10*3/uL MPV (9.5-12.2) fL Immature Gran # (0.00-0.04) X 10*3/uL Neutrophils # (1.80-7.70) X 10*3/uL Monocytes # (0.20-1.00) X 10*3/uL Sodium 133 L (135-145) mmol/L Chloride 93 L (96-109) mmol/L Carbon Dioxide 29.3 H (20.0-27.5) mmol/L Total Bilirubin 0.20 L (0.30-1.20) mg/dL AST 57 H (13-35) U/L Alkaline Phosphatase 267 H (41-126) U/L C-Reactive Protein 15.40 H (0.00-0.80) mg/dL Total Protein 5.0 L (6.2-8.2) g/dL Albumin 2.6 L (3.8-4.9) g/dL Albumin/Globulin Ratio 1.08 L (1.60-3.17) g/dL Procalcitonin (0.02-0.09) ng/mL Urine Protein (Negative) Assessment and Plan (1) Febrile illness, acute Current Visit: No Status: Acute Code(s): R50.9 - FEVER, UNSPECIFIED SNOMED Code(s): 863876044 Plan: 1patient with fever in this patient presented to hospital about a week ago with right upper quadrant abdominal pain in this patient did have a significant hepatomegaly and evidence of liver masses on the CT concerning for possible metastatic disease in this patient was status post ultrasound-guided biopsy of that mass with the report currently pending with a fever slightly concerning questionably tumor necrosis, or possible postoperative pneumonia in this patient did have significantly elevated pro calcitonin CT abdominal pelvis was negative for any abscess 2we'll try to obtain a sputum for Gram stain and culture and wait for the blood culture to be finalize 3patient to continue with Unasyn and monitor clinical course closely Time with Patient: Less than 30
--- NOTE | 2022-08-03 15:30 | P.PN ---
Subjective Progress Note Date: 08/02/22 Principal diagnosis: Fever Patient is a 52 year old female chronic back pain hypertension history of smoking with the recent Finding of cavitating mass in the left upper lobe presented to the hospital right upper quadrant abdominal pain noticed to have a liver mass concerning for metastasis status post a biopsy developing a new fever on 07/31/2022. On today's evaluation that is 08/02/2022, the patient a remains to be febrile patient is breathing comfortably currently on3 L nasal cannulapatient denies having any chest pain she did h cough but not bringing up any sputum abdominal pain is currently controlled and no diarrhea Objective - Vital Signs Vital signs: Vital Signs Temp 98.1 F 08/02/22 11:54 Pulse 102 H 08/02/22 11:54 Resp 18 08/02/22 11:54 BP 100/69 08/02/22 11:54 Pulse Ox 100 08/02/22 11:54 FiO2 Intake & Output 08/01/22 08/02/22 08/02/22 18:59 06:59 18:59 Intake Total 100 Balance 100 Intake: Intake, IV Titration 100 Amount Ampicillin-Sulbactam 3 gm 100 In Sodium Chloride 0.9% 100 ml @ 200 mls/hr IVPB Q6HR [facility] Rx#:[id number] Other: Voiding Method Toilet Toilet # Voids 4 1 - Exam GENERAL DESCRIPTION: Middle-aged female lying in bed in no distress RESPIRATORY SYSTEM: Unlabored breathing , decreased breath sounds at bases HEART: S1 S2 regular rate and rhythm , ABDOMEN: Soft , no tenderness EXTREMITIES: No edema feet - Labs CBC & Chem 7: 08/02/22 05:19 08/02/22 05:19 Labs: Abnormal Lab Results - Last 24 Hours (Table) 08/02/22 08/02/22 Range/Units 05:19 05:19 WBC 22.22 H (4.50-10.00) X 10*3/uL RBC 2.93 L (4.10-5.20) X 10*6/uL Hgb 8.9 L (12.0-15.0) g/dL Hct 27.5 L (37.2-46.3) % Plt Count 629 H (140-440) X 10*3/uL MPV 9.4 L (9.5-12.2) fL Immature Gran # 0.90 H (0.00-0.04) X 10*3/uL Neutrophils # 18.87 H (1.80-7.70) X 10*3/uL Monocytes # 1.18 H (0.20-1.00) X 10*3/uL Sodium 133 L (135-145) mmol/L Chloride 92 L (96-109) mmol/L Carbon Dioxide 30.1 H (20.0-27.5) mmol/L Total Bilirubin 0.20 L (0.30-1.20) mg/dL AST 59 H (13-35) U/L Alkaline Phosphatase 277 H (41-126) U/L Total Protein 5.0 L (6.2-8.2) g/dL Albumin 2.6 L (3.8-4.9) g/dL Albumin/Globulin Ratio 1.08 L (1.60-3.17) g/dL Microbiology - Last 24 Hours (Table) 07/31/22 11:19 Blood Culture - Preliminary Blood No Growth after 48 hours 07/31/22 11:23 Blood Culture - Preliminary Blood No Growth after 48 hours Assessment and Plan (1) Febrile illness, acute Current Visit: No Status: Acute Code(s): R50.9 - FEVER, UNSPECIFIED SNOMED Code(s): 640068839 (2) Right upper lobe pneumonia Current Visit: No Status: Acute Code(s): J18.9 - PNEUMONIA, UNSPECIFIED ORGANISM SNOMED Code(s): 723649000 Plan: 1patient with fever in this patient presented to hospital about a week ago with right upper quadrant abdominal pain in this patient did have a significant hepatomegaly and evidence of liver masses on the CT concerning for possible metastatic disease in this patient was status post ultrasound-guided biopsy of that mass with the report currently pending with a fever slightly concerning questionably tumor necrosis, or possible postoperative pneumonia in this patient did have significantly elevated pro calcitonin CT abdominal pelvis was negative for any abscess 2patient blood culture had been negative so far sputum has not been collected 3patient fever has resolved and white count is trending down , patient to continue with Unasyn and monitor clinical course closely Time with Patient: Less than 30
--- NOTE | 2022-08-03 15:32 | P.PN ---
Subjective Progress Note Date: 08/03/22 Principal diagnosis: Fever Patient is a 52 year old female chronic back pain hypertension history of smoking with the recent Finding of cavitating mass in the left upper lobe presented to the hospital right upper quadrant abdominal pain noticed to have a liver mass concerning for metastasis status post a biopsy developing a new fever on 07/31/2022. On today's evaluation that is 08/03/2022, the patient continues to be afebrile, patient is breathing comfortably on3 L nasal cannula, the patient denies having any chest pain , the patient denies any worsening cough or sputum production no abdominal pain and diarrhea Objective - Vital Signs Vital signs: Vital Signs Temp 98.0 F 08/03/22 05:00 Pulse 93 08/03/22 05:00 Resp 16 08/03/22 05:00 BP 107/74 08/03/22 05:00 Pulse Ox 100 08/03/22 05:00 FiO2 Intake & Output 08/02/22 08/03/22 08/03/22 18:59 06:59 18:59 Intake Total 1070 Balance 1070 Intake: Oral 1070 Other: Voiding Method Toilet Toilet Toilet # Voids 2 3 - Exam GENERAL DESCRIPTION: Middle-aged female lying in bed in no distress RESPIRATORY SYSTEM: Unlabored breathing , decreased breath sounds at bases HEART: S1 S2 regular rate and rhythm , ABDOMEN: Soft , no tenderness EXTREMITIES: No edema feet - Labs CBC & Chem 7: 08/02/22 05:19 08/02/22 05:19 Labs: Microbiology - Last 24 Hours (Table) 07/31/22 11:19 Blood Culture - Preliminary Blood No Growth after 48 hours 07/31/22 11:23 Blood Culture - Preliminary Blood No Growth after 48 hours Assessment and Plan (1) Febrile illness, acute Current Visit: No Status: Acute Code(s): R50.9 - FEVER, UNSPECIFIED SNOMED Code(s): 434875995 (2) Right upper lobe pneumonia Current Visit: No Status: Acute Code(s): J18.9 - PNEUMONIA, UNSPECIFIED ORGANISM SNOMED Code(s): 250162932 Plan: 1patient with fever in this patient presented to hospital about a week ago with right upper quadrant abdominal pain in this patient did have a significant hepatomegaly and evidence of liver masses on the CT concerning for possible metastatic disease in this patient was status post ultrasound-guided biopsy of that mass with the report currently pending with a fever slightly concerning questionably tumor necrosis, or possible postobstructive pneumonia in this patient did have significantly elevated pro calcitonin CT abdominal pelvis was negative for any abscess 2patient blood culture had been negative so far sputum has not been collected 3patient fever has resolved and white count is trending down , patient is feeling better and insisting on going home we will continue Unasyn finishing therapy with oral Augmentin Time with Patient: Less than 30
--- NOTE | 2022-08-03 19:17 | MR ---
EXAMINATION TYPE: MR brain w con DATE OF EXAM: 08/03/2022 COMPARISON: 08/02/2022 HISTORY: Patient with suspected cancer, rule out mets CONTRAST: Standard multiplanar, multisequence MRI departmental protocol images were obtained without contrast a nd with 6 mL intravenous Gadavist gadolinium contrast. T1 weighted postcontrast images of the brain were obtained. Corpus callosum is intact. There is normal enhancement of the venous sinuses. Brainstem is intact. Th ere is mild cerebral atrophy. There is no midline shift. No mass effect. There is normal enhancement of the anterior middle and posterior cerebral arteries bilaterally. Sella turcica is normal. No evidence of orbital mass. There is some metal artifact which obscures detail of the right posterior temporal lobe and the right side temporal bone. This patient has an old right temporal craniotomy defect on the old CT scan of . IMPRESSION: No evidence of intracranial metastatic disease. Cerebral atrophy.
[2022-08-03] MEDS: oxyCODONE-APAP 7.5-325MG 1 EACH TAB PO PRN (20:05)
[2022-08-03] MEDS: NON FORMULARY DRUG (Cariprazine Hcl [Vraylar] 3 MG Capsule) PO SCH (21:23)
[2022-08-03] MEDS: traZODone HCL 100 MG TAB PO SCH (21:37)
[2022-08-03] MEDS: DESVENLAFAXINE SUCCINATE 50 MG TAB.ER.24H PO SCH ×2 (21:38)
[2022-08-04 06:20] LABS: Basophils # (A) 0.1 k/uL (0-0.2); Basophils % (A) 0 %; Eosinophils # (A) 0.1 k/uL (0-0.7); Eosinophils % (A) 0 %; HCT 29.7 % (34.0-46.0); HGB 9.2 gm/dL (11.4-16.0); Hypochromasia Moderate; Lymphocytes # (A) 1.5 k/uL (1.0-4.8); Lymphocytes % (A) 9 %; MCH 29.8 pg (25.0-35.0); MCV 96.3 fL (80.0-100.0); Mean Platelet Volume 7.9; Monocytes # (A) 0.8 k/uL (0-1.0); Monocytes % (A) 5 %; Neutrophils # (A) 14.8 k/uL (1.3-7.7); Neutrophils % (A) 85 %; Platelet Count 687 k/uL (150-450); RBC 3.09 m/uL (3.80-5.40); WBC 17.5 k/uL (3.8-10.6)
[2022-08-04] MEDS: AMPICILLIN-SULBACTAM 3 GM in SODIUM CHLORIDE 0.9% 100 ML IVPB SCH ×2 (06:21→12:21)
[2022-08-04 06:41] LABS: ALT 17 U/L (4-34); AST 37 U/L (14-36); African American GFR (CKD) >90 (>60 ml/min/1.73 sqM); Albumin 2.5 g/dL (3.5-5.0); Alkaline Phosphatase 260 U/L (38-126); Anion Gap 3 mmol/L; Blood Urea Nitrogen 11 mg/dL (7-17); Calcium 8.7 mg/dL (8.4-10.2); Carbon Dioxide 35 mmol/L (22-30); Chloride 94 mmol/L (98-107); Globulin 2.4 g/dL; Glucose 90 mg/dL (74-99); Magnesium 2.2 mg/dL (1.6-2.3); Non-African American GFR(CKD) 79 (>60 ml/min/1.73 sqM); Potassium 4.4 mmol/L (3.5-5.1); Sodium 132 mmol/L (137-145); Total Bilirubin 0.3 mg/dL (0.2-1.3); Total Protein 4.9 g/dL (6.3-8.2)
[2022-08-04] MEDS: SYMBICORT 160-4.5 MCG INHALER INHALATION SCH (07:36)
[2022-08-04] MEDS: IPRATROPIUM-ALBUTEROL 3 ML NEB INHALATION SCH ×3 (07:36→15:13)
[2022-08-04 08:37] LABS: LDH 2049 U/L (313-618)
[2022-08-04] MEDS: FOLIC ACID 1 MG TAB PO SCH (08:57)
[2022-08-04] MEDS: MORPHINE SULFATE ER 30 MG TABLET PO SCH (08:58)
[2022-08-04] MEDS: predniSONE 20 MG TAB PO SCH (08:58)
[2022-08-04] MEDS: FAMOTIDINE 20 MG TAB PO SCH (08:58)
[2022-08-04] MEDS: DOCUSATE 100 MG CAP PO SCH (08:58)
[2022-08-04] MEDS: polyethylene glycoL 3350 17 GM POWD.PACK PO SCH (08:58)
[2022-08-04 12:08] VITALS: BP 95/67; PULSE 85; RESP 15; TEMP 97.8
[2022-08-04] MEDS ORDERED: AMOXIC-POT CLAV 875-125MG 1 EACH TAB PO SCH (12:30)
--- NOTE | 2022-08-04 15:25 | P.PN ---
Subjective Progress Note Date: 08/04/22 Principal diagnosis: Fever Patient is a 52 year old female chronic back pain hypertension history of smoking with the recent Finding of cavitating mass in the left upper lobe presented to the hospital right upper quadrant abdominal pain noticed to have a liver mass concerning for metastasis status post a biopsy developing a new fever on 07/31/2022. On today's evaluation that is 08/04/2022, the patient remains to be afebrile, patient is breathing comfortably on room air, the patient denies having any chest pain , the patient cough is decreased intensity not bringing up any sputum, denies abdominal pain no diarrhea Objective - Vital Signs Vital signs: Vital Signs Temp 97.8 F 08/04/22 12:06 Pulse 85 08/04/22 12:06 Resp 15 08/04/22 12:06 BP 95/67 08/04/22 12:06 Pulse Ox 98 08/04/22 12:06 FiO2 Intake & Output 08/03/22 08/04/22 08/04/22 18:59 06:59 18:59 Intake Total 100 590 Balance 100 590 Weight 49.895 kg Intake: Intake, IV Titration 100 Amount Ampicillin-Sulbactam 3 gm 100 In Sodium Chloride 0.9% 100 ml @ 200 mls/hr IVPB Q6HR [facility] Rx#:[id number] Oral 590 Other: Voiding Method Toilet Toilet Toilet # Voids 2 1 - Exam GENERAL DESCRIPTION: Middle-aged female lying in bed in no distress RESPIRATORY SYSTEM: Unlabored breathing , decreased breath sounds at bases HEART: S1 S2 regular rate and rhythm , ABDOMEN: Soft , no tenderness EXTREMITIES: No edema feet - Labs CBC & Chem 7: 08/04/22 05:55 08/04/22 05:55 Labs: Abnormal Lab Results - Last 24 Hours (Table) 08/04/22 08/04/22 Range/Units 05:55 05:55 WBC 17.5 H (3.8-10.6) k/uL RBC 3.09 L (3.80-5.40) m/uL Hgb 9.2 L (11.4-16.0) gm/dL Hct 29.7 L (34.0-46.0) % Plt Count 687 H (150-450) k/uL Neutrophils # 14.8 H (1.3-7.7) k/uL Sodium 132 L (137-145) mmol/L Chloride 94 L (98-107) mmol/L Carbon Dioxide 35 H (22-30) mmol/L AST 37 H (14-36) U/L Alkaline Phosphatase 260 H (38-126) U/L Lactate Dehydrogenase 2049 H (313-618) U/L Total Protein 4.9 L (6.3-8.2) g/dL Albumin 2.5 L (3.5-5.0) g/dL Microbiology - Last 24 Hours (Table) 07/31/22 11:19 Blood Culture - Preliminary Blood No Growth after 96 hours 07/31/22 11:23 Blood Culture - Preliminary Blood No Growth after 96 hours Assessment and Plan (1) Febrile illness, acute Status: Acute Code(s): R50.9 - FEVER, UNSPECIFIED SNOMED Code(s): 543890670 (2) Right upper lobe pneumonia Status: Acute Code(s): J18.9 - PNEUMONIA, UNSPECIFIED ORGANISM SNOMED Code(s): 080255363 Plan: 1patient with fever in this patient presented to hospital about a week ago with right upper quadrant abdominal pain in this patient did have a significant hepatomegaly and evidence of liver masses on the CT concerning for possible metastatic disease in this patient was status post ultrasound-guided biopsy of that mass with the report currently pending with a fever slightly concerning questionably tumor necrosis, or possible postobstructive pneumonia in this patient did have significantly elevated pro calcitonin CT abdominal pelvis was negative for any abscess 2patient blood culture had been negative so far sputum has not been collected 3patient fever has resolved and white count is down to 71,000, patient to finish therapy with oral Augmentin and close outpatient follow-up Time with Patient: Less than 30
--- NOTE | 2022-08-04 20:56 | PN ---
PROGRESS NOTE DATE OF SERVICE: 08/03/2022 The patient has lung cancer, adenocarcinoma, radiating into the liver. She is resting comfortably on 3 L oxygen, temperature 98, pulse 93, respiratory rate 16, blood pressure 107/74, O2 of 100%. She had negative blood cultures lately for 48 hours. She has febrile illness, unspecified. She has liver metastases, status post biopsy. CAT scan is negative for any abscess. . White count is trending down. to go home. We will continue Unasyn in conjunction with Augmentin over the next 24 to 48 hours. Possible discharge home with chemotherapy setup for the patient in the next 24 to 48 hours. Brain MRI is also going to be done to rule out metastases to the brain. MMODL / IJN: [id number] /
== END 2022-08-04 15:17 | disposition home or self-care (01) | DRG 435 ==
LOC: EC 21:43 → 5NMEDONC 07-25 03:00 → OBSVTOIN 07-25 11:55 → 5NMEDONC 07-25 14:57
PROVIDERS: ADMIT Family Medicine; ATTEND Family Medicine
PROC: 0FB23ZX Excision of Left Lobe Liver, Percutaneous Approach, Diagnostic (ICD-10-PCS; principal; 2022-07-25)
DX: C78.7 Secondary malignant neoplasm of liver and intrahepatic bile duct (principal); G93.41 Metabolic encephalopathy; J18.9 Pneumonia, unspecified organism; C34.12 Malignant neoplasm of upper lobe, left bronchus or lung; R18.8 Other ascites; J44.1 Chronic obstructive pulmonary disease with (acute) exacerbation; J44.0 Chronic obstructive pulmonary disease with (acute) lower respiratory infection; E78.5 Hyperlipidemia, unspecified; D63.0 Anemia in neoplastic disease; I73.9 Peripheral vascular disease, unspecified; Z20.822 Contact with and (suspected) exposure to COVID-19; G89.3 Neoplasm related pain (acute) (chronic); I12.9 Hypertensive chronic kidney disease with stage 1 through stage 4 chronic kidney disease, or unspecified chronic kidney disease; R09.02 Hypoxemia; F32.A Depression, unspecified; F41.1 Generalized anxiety disorder; M54.50 Low back pain, unspecified; M54.2 Cervicalgia; G62.9 Polyneuropathy, unspecified; N18.9 Chronic kidney disease, unspecified; K21.9 Gastro-esophageal reflux disease without esophagitis; M19.90 Unspecified osteoarthritis, unspecified site; N83.201 Unspecified ovarian cyst, right side; F17.210 Nicotine dependence, cigarettes, uncomplicated; Z71.6 Tobacco abuse counseling; Z99.81 Dependence on supplemental oxygen; Z79.51 Long term (current) use of inhaled steroids; Z79.899 Other long term (current) drug therapy; Z86.711 Personal history of pulmonary embolism; Z88.8 Allergy status to other drugs, medicaments and biological substances; W19.XXXA Unspecified fall, initial encounter
CPT/HCPCS: 36415; 47000; 70551; 70552; 71046; 71250; 74177; 76942; 80048; 80053; 81001; 81003; 82140; 82150; 82247; 82607; 82728; 82746; 83540; 83550; 83615; 83690; 83735; 84145; 84450; 84460; 85025; 85610; 86140; 87040; 87502; 87635; 88307; 88341; 88342; 94640; 94760; 96374; 96375; 96376; 99285

== ENCOUNTER 2022-08-16 14:47 | Inpatient (IN) | payer OTHER ==
[2022-08-16] MEDS ORDERED: IPRATROPIUM-ALBUTEROL 3 ML NEB INHALATION STA (15:55)
[2022-08-16] MEDS ORDERED: SODIUM CHLORIDE 0.9% 1,000 ML IV STA (15:55)
[2022-08-16] MEDS ORDERED: fentaNYL (PF) 50 MCG/ML 2 ML AMP IVP STA (15:56)
--- NOTE | 2022-08-16 16:36 | XR ---
EXAMINATION TYPE: XR chest 2V DATE OF EXAM: 08/16/2022 COMPARISON: Chest CT August 01, 2022 HISTORY: Difficulty in breathing. TECHNIQUE: Frontal and lateral views of the chest are obtained. FINDINGS: Background chronic emphysematous change with new left mid to lower lung peripheral increas ed opacities. Persistent anterior left mid lung 4.0 cm mass worrisome for neoplasm. The cardiac silho uette size is stable and within normal limits. Underlying scoliosis redemonstrated. IMPRESSION: New left mid to lower lung peripheral acute infiltrate.
[2022-08-16 17:02] LABS: Albumin 2.4 g/dL (3.5-5.0); Calcium 8.6 mg/dL (8.4-10.2); Magnesium 1.6 mg/dL (1.6-2.3); Potassium 4.1 mmol/L (3.5-5.1); Total Bilirubin 0.6 mg/dL (0.2-1.3); Total Protein 5.2 g/dL (6.3-8.2)
[2022-08-16 17:06] LABS: INR 1.3 (<1.2)
--- NOTE | 2022-08-16 17:12 | ED ---
General Adult HPI - General Chief complaint: Shortness of Breath Stated complaint: CHEO, trouble swallowing Time Seen by Provider: 08/16/22 15:45 Source: patient, EMS, RN notes reviewed, old records reviewed Mode of arrival: EMS Limitations: no limitations - History of Present Illness Initial comments: Patient is a 52-year-old female with past medical history remarkable for stage IV cancer with metastasis in the abdomen, lung who had an EGD performed at [facility] yesterday presents emergency Department complaining of a sore throat since yesterday. Also has a history COPD on 3 L nasal cannula at home. States she has not been eating or drinking much since yesterday. Patient describes a sore throat with swallowing. She has not yet undergone chemo or radiation but does believe the plan is to do chemo. Does have chronic abdominal pain over this period of time as well as chronic joint pain since the diagnosis of cancer. Denies any change in bowel movements. Denies constipation. Denies worsening of her chronic abdominal pain. Denies any urinary retention. Denies any nausea or vomiting. Denies any chest pain or shortness of breath. Denies any cough. Has no other acute complaints at this time. Presents over concern for her sore throat from yesterday, as well as decreased oral intake believe she is dehydrated. - Related Data Home Medications Medication Instructions Recorded Confirmed Desvenlafaxine [Pristiq ER] 100 mg PO HS 11/30/19 08/16/22 Primidone [Mysoline] 100 mg PO HS 11/30/19 08/16/22 Ipratropium-Albuterol Nebulize 3 ml INHALATION RT-TID PRN 06/14/20 08/16/22 [Duoneb 0.5 mg-3 mg/3 ml Soln] traZODone HCL 200 mg PO HS 06/14/20 08/16/22 methocarbamoL [Robaxin-750] 750 mg PO TID PRN 09/18/21 08/16/22 Albuterol Sulfate [Proair Hfa] 2 puff INHALATION RT-Q6H PRN 02/17/22 08/16/22 Cariprazine HCl [Vraylar] 3 mg PO HS 02/17/22 08/16/22 Ergocalciferol [Vitamin D2 (1250 1,250 mcg PO MO 02/17/22 08/16/22 Mcg = 59805 Iu)] Fluticasone/Umeclidin/Vilanter 1 puff INHALATION RT-DAILY 02/17/22 08/16/22 [Trelejuanita Ellipta 100-62.5-25] Oxybutynin Chloride 5 mg PO BID 03/07/22 08/16/22 Desvenlafaxine Succinate [Pristiq 50 mg PO HS 07/25/22 08/16/22 ER] Ondansetron Odt [Zofran ODT] 8 mg PO Q8H PRN 07/25/22 08/16/22 Prochlorperazine [Compazine] 10 mg PO BID PRN 07/25/22 08/16/22 Fluconazole [Diflucan] 200 mg PO DIRECTED 08/16/22 08/16/22 Omeprazole [PriLOSEC] 20 mg PO DIRECTED 08/16/22 08/16/22 oxyCODONE-APAP 7.5-325MG [Percocet 1 tab PO Q4HR PRN 08/16/22 08/16/22 7.5-325 mg] predniSONE [Deltasone] 20 mg PO DAILY 08/16/22 08/16/22 Previous Rx's Medication Instructions Recorded Gabapentin [Neurontin] 300 mg PO BID #6 cap 09/21/21 Budesonide-Formot 160-4.5 Mcg 2 puff INHALATION RT-BID 30 Days 07/31/22 [Symbicort 160-4.5 Mcg Inhaler] #1 each Docusate [Colace] 100 mg PO BID cap 07/31/22 Famotidine [Pepcid] 20 mg PO BID tab 07/31/22 Folic Acid 1 mg PO DAILY #90 tablet 07/31/22 Ipratropium-Albuterol Nebulize 3 ml INHALATION RT-QID 30 Days 07/31/22 [Duoneb 0.5 mg-3 mg/3 ml Soln] #120 each Morphine Sulfate ER [Ms Contin] 30 mg PO Q12HR tab 07/31/22 polyethylene glycoL 3350 [Miralax] 17 gm PO DAILY packet 07/31/22 Allergies Allergy/AdvReac Type Severity Reaction Status Date / Time amitriptyline [From Elavil] AdvReac loss of Verified 08/16/22 17:21 libido pregabalin [From Lyrica] AdvReac "felt Verified 08/16/22 17:21 super high" Review of Systems ROS Statement: Those systems with pertinent positive or pertinent negative responses have been documented in the HPI. Review of Systems: CONST: Denies fever EYES: Denies blurry vision ENT: Endorses sore throat C/V: Denies Chest pain RESP: Denies shortness of breath GI: Endorses abdominal pain : Denies dysuria SKIN: Denies rash. MSK: Denies joint pain. NEURO: Denies headache ROS Other: All systems not noted in ROS Statement are negative. Past Medical History Past Medical History: Asthma, COPD, GERD/Reflux, Hyperlipidemia, Hypertension, Osteoarthritis (OA), Pneumonia, Pulmonary Embolus (PE), Renal Disease, Respiratory Disorder, Vascular Disorder Additional Past Medical History / Comment(s): Brain aneurysm with repair, peripheral neuropathy, home O2 at 3L AT NIGHT AND PRN , chronic lower back/cervi edwar pain, CHRONIC KIDNEY DISEASE History of Any Multi-Drug Resistant Organisms: None Reported Past Surgical History: Adenoidectomy, Breast Surgery, Section, Cholecystectomy, Hysterectomy, Tonsillectomy Additional Past Surgical History / Comment(s): D&C, lower back pain clinic procedure/ablation, several mini laparoscopies d/t abnormal vaginal bleeding, brain aneurysm repair, septoplasty/facial cyst excision, dental extractions, bilateral breast implants Past Anesthesia/Blood Transfusion Reactions: No Reported Reaction, Family History of Problems w/ Anesthesia Additional Past Anesthesia/Blood Transfusion Reaction / Comment(s): Pt received blood in past without reaction. SISTER HAS POST OP NAUSEA AND VOMITING Past Psychological History: Anxiety, Depression Smoking Status: Current every day smoker - Past Family History Mother Family Medical History: Cancer Additional Family Medical History / Comment(s): Colon, Uterine cancer w/ mets Father Family Medical History: COPD, Respiratory Disorder Additional Family Medical History / Comment(s): Father from pulmonary f ibrosis. General Exam - General Exam Comments Initial Comments: General: Appears in mild distress secondary to abdominal pain. HEAD: Normal with no signs of head trauma. EYES: PERRLA, EOMI, conjunctiva normal, no discharge. ENT: Hearing grossly intact, normal oropharynx. Patient has thrush on the tongue. Posterior oropharynx within normal limits. Uvula midline. No stridor auscultated. RESPIRATORY: Minimal wheezing bilaterally. No increased work of breathing. Normal oxygen saturation on home 3 L nasal cannula. C/V: Mildly tachycardic likely secondary to pain. S1 and S2 auscultated. Peripheral pulses 2+ intact throughout. Bilateral lower extremity swelling that is symmetrical. ABD: Abdomen is distended which is chronic since the diagnosis of cancer. No specific tenderness to palpation. No guarding. No peritoneal signs. No rebound tenderness. Masses palpated. EXT: Normal range of motion, no obvious deformity SKIN: No rashes or lesions observed on exposed skin. NEURO: Alert and oriented 4. No Focal deficits. Limitations: no limitations Course Vital Signs 08/16/22 08/16/22 08/16/22 14:57 15:00 15:15 Temperature 98.4 F Pulse Rate 130 H 118 H Respiratory 16 16 16 Rate Blood Pressure 96/75 90/69 O2 Sat by Pulse 96 95 Oximetry 08/16/22 08/16/22 08/16/22 15:30 16:00 16:30 Temperature Pulse Rate 117 H 119 H 120 H Respiratory 16 16 16 Rate Blood Pressure 88/75 91/75 96/76 O2 Sat by Pulse 95 96 95 Oximetry 08/16/22 08/16/22 16:32 16:42 Temperature Pulse Rate 113 H 116 H Respiratory Rate Blood Pressure O2 Sat by Pulse Oximetry Medical Decision Making - Medical Decision Making Based on the patient's presentation and physical exam, I do believe she is likely expressing her sore throat from the EGD yesterday, however I'm concerned for dehydration the patient at this time. We will obtain infectious labs as well. She was in agreement this plan. She'll be given a breathing treatment. She'll be given IV fluids. We will continue her home 3 L nasal cannula. Patient recently was admitted and therefore we will avoid CT imaging of the abdomen and chest at this time, as it was recently done 15 days ago. It showed metastatic disease at this time. She'll be given IV analgesia medications. Patient's EKG showed no signs of acute ischemia. Chest x-ray as interpreted by myself reveals new left Sided pulmonary infiltrate. Cancer is redemonstrated. Patient's laboratory studies are remarkable for leukocytosis of 20.2, with her being on chronic steroids. Typically he has had an elevated white blood cell count.To be within her baseline. Patient also has a chronic normocytic anemia with hemoglobin 9.8 which is stable. Lactic acid is slightly elevated to 2.2. Patient's glucose is 49 and she'll be given an amp of D50. We will monitor her glucose closely. This is likely secondary to her not eating. Blood cultures were obtained and sent. Patient's LFTs and alk phos are chronically elevated likely secondary to her cancer. Covid employer negative. Urinalysis is still pending at this time. At this time, patient was started on continued IV fluids, as well as antibiotics. She is not septic. She is being treated for her pneumonia. Leukocytosis appears to be chronic. Vital signs are within acceptable limits. She was in agreement this plan. We discussed the remainder of her results. She'll be admitted to the hospital for failure to thrive, pneumonia, as well as intractable pain secondary to her cancer. I will consult her oncologist Dr. Varela . I did clarify the patient's PCP is Dr. Daya Tyler which she agreed with. I did contact the covering physician, Dr. Tyler who accepted the patient and was in agreement this plan. Patient was admitted in stable condition. - Lab Data Result diagrams: 08/16/22 15:59 08/16/22 15:59 Lab Results 08/16/22 08/16/22 08/16/22 Range/Units 15:59 15:59 15:59 WBC 20.2 H (3.8-10.6) k/uL RBC 3.23 L (3.80-5.40) m/uL Hgb 9.8 L (11.4-16.0) gm/dL Hct 30.1 L (34.0-46.0) % MCV 93.1 (80.0-100.0) fL MCH 30.4 (25.0-35.0) pg MCHC 32.6 (31.0-37.0) g/dL RDW 14.3 (11.5-15.5) % Plt Count 386 (150-450) k/uL MPV 8.6 Neutrophils % 94 % Lymphocytes % 2 % Monocytes % 2 % Eosinophils % 0 % Basophils % 0 % Neutrophils # 19.0 H (1.3-7.7) k/uL Lymphocytes # 0.5 L (1.0-4.8) k/uL Monocytes # 0.4 (0-1.0) k/uL Eosinophils # 0.0 (0-0.7) k/uL Basophils # 0.0 (0-0.2) k/uL Hypochromasia Slight PT 14.0 H (9.0-12.0) sec INR 1.3 H (<1.2) APTT 21.0 L (22.0-30.0) sec Sodium 133 L (137-145) mmol/L Potassium 4.1 (3.5-5.1) mmol/L Chloride 95 L (98-107) mmol/L Carbon Dioxide 32 H (22-30) mmol/L Anion Gap 6 mmol/L BUN 12 (7-17) mg/dL Creatinine 0.88 (0.52-1.04) mg/dL Est GFR (CKD-EPI)AfAm 88 (>60 ml/min/1.73 sqM) Est GFR (CKD-EPI)NonAf 76 (>60 ml/min/1.73 sqM) Glucose 49 L* (74-99) mg/dL Lactic Ac Sepsis Rflx Plasma Lactic Acid Juan (0.7-2.0) mmol/L Calcium 8.6 (8.4-10.2) mg/dL Magnesium 1.6 (1.6-2.3) mg/dL Total Bilirubin 0.6 (0.2-1.3) mg/dL AST 122 H (14-36) U/L ALT 55 H (4-34) U/L Alkaline Phosphatase 1247 H (38-126) U/L NT-Pro-B Natriuret Pep pg/mL Total Protein 5.2 L (6.3-8.2) g/dL Albumin 2.4 L (3.5-5.0) g/dL Coronavirus (PCR) (Not Detectd) Influenza Type A RNA (Not Detectd) Influenza Type B (PCR) (Not Detectd) 08/16/22 08/16/22 08/16/22 Range/Units 15:59 15:59 15:59 WBC (3.8-10.6) k/uL RBC (3.80-5.40) m/uL Hgb (11.4-16.0) gm/dL Hct (34.0-46.0) % MCV (80.0-100.0) fL MCH (25.0-35.0) pg MCHC (31.0-37.0) g/dL RDW (11.5-15.5) % Plt Count (150-450) k/uL MPV Neutrophils % % Lymphocytes % % Monocytes % % Eosinophils % % Basophils % % Neutrophils # (1.3-7.7) k/uL Lymphocytes # (1.0-4.8) k/uL Monocytes # (0-1.0) k/uL Eosinophils # (0-0.7) k/uL Basophils # (0-0.2) k/uL Hypochromasia PT (9.0-12.0) sec INR (<1.2) APTT (22.0-30.0) sec Sodium (137-145) mmol/L Potassium (3.5-5.1) mmol/L Chloride (98-107) mmol/L Carbon Dioxide (22-30) mmol/L Anion Gap mmol/L BUN (7-17) mg/dL Creatinine (0.52-1.04) mg/dL Est GFR (CKD-EPI)AfAm (>60 ml/min/1.73 sqM) Est GFR (CKD-EPI)NonAf (>60 ml/min/1.73 sqM) Glucose (74-99) mg/dL Lactic Ac Sepsis Rflx Plasma Lactic Acid Juan 2.2 H* (0.7-2.0) mmol/L Calcium (8.4-10.2) mg/dL Magnesium (1.6-2.3) mg/dL Total Bilirubin (0.2-1.3) mg/dL AST (14-36) U/L ALT (4-34) U/L Alkaline Phosphatase (38-126) U/L NT-Pro-B Natriuret Pep 1140 pg/mL Total Protein (6.3-8.2) g/dL Albumin (3.5-5.0) g/dL Coronavirus (PCR) (Not Detectd) Influenza Type A RNA Not Detected (Not Detectd) Influenza Type B (PCR) Not Detected (Not Detectd) 08/16/22 08/16/22 Range/Units 16:10 17:10 WBC (3.8-10.6) k/uL RBC (3.80-5.40) m/uL Hgb (11.4-16.0) gm/dL Hct (34.0-46.0) % MCV (80.0-100.0) fL MCH (25.0-35.0) pg MCHC (31.0-37.0) g/dL RDW (11.5-15.5) % Plt Count (150-450) k/uL MPV Neutrophils % % Lymphocytes % % Monocytes % % Eosinophils % % Basophils % % Neutrophils # (1.3-7.7) k/uL Lymphocytes # (1.0-4.8) k/uL Monocytes # (0-1.0) k/uL Eosinophils # (0-0.7) k/uL Basophils # (0-0.2) k/uL Hypochromasia PT (9.0-12.0) sec INR (<1.2) APTT (22.0-30.0) sec Sodium (137-145) mmol/L Potassium (3.5-5.1) mmol/L Chloride (98-107) mmol/L Carbon Dioxide (22-30) mmol/L Anion Gap mmol/L BUN (7-17) mg/dL Creatinine (0.52-1.04) mg/dL Est GFR (CKD-EPI)AfAm (>60 ml/min/1.73 sqM) Est GFR (CKD-EPI)NonAf (>60 ml/min/1.73 sqM) Glucose (74-99) mg/dL Lactic Ac Sepsis Rflx Y Plasma Lactic Acid Juan (0.7-2.0) mmol/L Calcium (8.4-10.2) mg/dL Magnesium (1.6-2.3) mg/dL Total Bilirubin (0.2-1.3) mg/dL AST (14-36) U/L ALT (4-34) U/L Alkaline Phosphatase (38-126) U/L NT-Pro-B Natriuret Pep pg/mL Total Protein (6.3-8.2) g/dL Albumin (3.5-5.0) g/dL Coronavirus (PCR) Not Detected (Not Detectd) Influenza Type A RNA (Not Detectd) Influenza Type B (PCR) (Not Detectd) - EKG Data -: EKG Interpreted by Me EKG Comments: 12-lead Electrocardiogram Interpretation Note EKG was reviewed and interpreted by myself. 12-lead ECG performed at 1710 is interpreted by me as revealing sinus tachycardia at a rate of 116 beats per minute. [place] is normal. MI interval is 128 ms, QRS duration 71 ms, QTc is 410 ms.. There were no ST or T wave abnormalities to suggest myocardial ischemia or injury. R wave progression across the precordium was satisfactory. By my interpretation this EKG is non-diagnostic for acute ischemia. Disposition Clinical Impression: Pneumonia, Failure to thrive, Dehydration, Chronic pain, COPD (chronic obstructive pulmonary disease), Cancer, Thrush, Hypoglycemia Disposition: ADMITTED IP TO THIS HOSP Condition: Stable Time of Disposition: 17:30
[2022-08-16] MEDS ORDERED: DEXTROSE 50% SYRINGE 50 ML IVP STA (17:15)
[2022-08-16 17:19] LABS: Basophils % (A) 0 %; Eosinophils % (A) 0 %; HCT 30.1 % (34.0-46.0); HGB 9.8 gm/dL (11.4-16.0); Hypochromasia Slight; Lymphocytes # (A) 0.5 k/uL (1.0-4.8); Lymphocytes % (A) 2 %; MCH 30.4 pg (25.0-35.0); MCHC 32.6 g/dL (31.0-37.0); MCV 93.1 fL (80.0-100.0); Mean Platelet Volume 8.6; Monocytes # (A) 0.4 k/uL (0-1.0); Monocytes % (A) 2 %; Neutrophils % (A) 94 %; Platelet Count 386 k/uL (150-450); RBC 3.23 m/uL (3.80-5.40); RDW 14.3 % (11.5-15.5); WBC 20.2 k/uL (3.8-10.6)
[2022-08-16] MEDS ORDERED: LIDOCAINE VISCOUS 2% 15 ML CUP MUCOUS MEM ONE (17:19)
[2022-08-16] MEDS ORDERED: PIPERACILLIN-TAZOBACTAM 3.375 GM in SODIUM CHLORIDE 0.9% 100 ML IVPB STA (17:26)
[2022-08-16] MEDS ORDERED: AZITHROMYCIN 500 MG in SODIUM CHLORIDE 0.9% 250 ML IVPB STA (17:26)
[2022-08-16] MEDS ORDERED: PNEUMONIA PROTOCOL UTILIZED 1 EACH MISC PO PRN (17:26)
[2022-08-16] MEDS ORDERED: NALOXONE 0.4 MG/ML 1 ML VIAL IV PRN (17:48)
[2022-08-16] MEDS ORDERED: ACETAMINOPHEN TAB 325 MG TAB PO PRN (17:48)
[2022-08-16] MEDS ORDERED: ALBUTEROL HFA INHALER INHALATION PRN (18:03)
[2022-08-16] MEDS ORDERED: methocarbamoL 750 MG TAB PO PRN (18:03)
[2022-08-16] MEDS ORDERED: PROCHLORPERAZINE 10 MG TAB PO PRN (18:03)
[2022-08-16] MEDS ORDERED: IPRATROPIUM-ALBUTEROL 3 ML NEB INHALATION PRN (18:03)
[2022-08-16] MEDS: SODIUM CHLORIDE 0.9% 1,000 ML IV SCH (18:17)
[2022-08-16 18:36] LABS: Glucose,Whole Blood 127 mg/dL (70-110)
[2022-08-16] MEDS: SYMBICORT 160-4.5 MCG INHALER INHALATION SCH (19:29)
[2022-08-16] MEDS: IPRATROPIUM-ALBUTEROL 3 ML NEB INHALATION SCH (19:29)
[2022-08-16 20:12] LABS: Glucose,Whole Blood 103 mg/dL (70-110)
[2022-08-16] MEDS ORDERED: DESVENLAFAXINE SUCCINATE 50 MG TAB.ER.24H PO SCH (21:00)
[2022-08-16] MEDS: FAMOTIDINE 20 MG TAB PO SCH (21:38)
[2022-08-16] MEDS: NYSTATIN 100,000 UNIT/ML SUSP 500,000 UNIT/5 ML CUP PO SCH ×2 (21:38→21:41)
[2022-08-16] MEDS: OXYBUTYNIN CHLORIDE 5 MG TAB PO SCH (21:38)
[2022-08-16] MEDS: GABAPENTIN 300 MG CAP PO SCH (21:38)
[2022-08-16] MEDS: DESVENLAFAXINE SUCCINATE 50 MG TAB.ER.24H PO SCH (21:38)
[2022-08-16] MEDS: FLUCONAZOLE 100 MG TAB PO SCH (21:38)
[2022-08-16] MEDS: NON FORMULARY DRUG (Cariprazine Hcl [Vraylar] 3 MG Capsule) PO SCH (21:40)
[2022-08-16] MEDS: PANTOPRAZOLE 40 MG TABLET PO SCH (21:40)
[2022-08-16] MEDS: MORPHINE SULFATE 4 MG/ML SYRINGE IV PRN (21:57)
[2022-08-16] MEDS: HEPARIN SODIUM,PORCINE/PF 5,000 UNIT/0.5 ML SYRINGE SQ SCH (23:42)
[2022-08-16] MEDS: PIPERACILLIN-TAZOBACTAM 3.375 GM in SODIUM CHLORIDE 0.9% 100 ML IVPB SCH (23:43)
[2022-08-17] MEDS: MORPHINE SULFATE 4 MG/ML SYRINGE IV PRN ×4 (03:47→18:19)
[2022-08-17 05:26] LABS: Amorphous Sediment,Urine Occasional /hpf; Appearance,Urine Cloudy (Clear); Bilirubin,Urine Negative (Negative); Blood,Urine Negative (Negative); Color,Urine Yellow; Glucose,Urine (UA) 1+ (Negative); Hyaline Casts,Urine 5 /lpf (0-2); Ketones,Urine Trace (Negative); Leukocyte Esterase,Urine Negative (Negative); Mucus,Urine Rare /hpf; Nitrite,Urine Negative (Negative); Protein,Urine 1+ (Negative); RBC,Urine 1 /hpf (0-5); Specific Gravity,Urine 1.032 (1.001-1.035); Squamous Epithelial Cell,Urine 5 /hpf (0-4); WBC,Urine 2 /hpf (0-5)
[2022-08-17 07:23] LABS: Glucose,Whole Blood 87 mg/dL (70-110)
[2022-08-17] MEDS: SYMBICORT 160-4.5 MCG INHALER INHALATION SCH ×3 (07:23→19:15)
[2022-08-17] MEDS: IPRATROPIUM-ALBUTEROL 3 ML NEB INHALATION SCH ×5 (07:23→19:15)
--- NOTE | 2022-08-17 07:57 | XR ---
EXAMINATION TYPE: XR chest 2V DATE OF EXAM: 08/17/2022 COMPARISON: 08/16/2022 INDICATION: Pneumonia TECHNIQUE: Frontal and lateral views of the chest are obtained. FINDINGS: The heart size is normal. The pulmonary vasculature is normal. There is a peripheral left lung infiltrate. On the lateral projection anterior mediastinal mass may b e present. This is identified within the anterior left lung on the 08/01/2022 CT. IMPRESSION: 1. Left lung infiltrate likely on the basis of pneumonia. 2. Medial left lung nodule
[2022-08-17] MEDS ORDERED: NON FORMULARY DRUG (Fluticasone/Umeclidin/Vilanter [Trelegy Ellipta 100-62.5-25] 1 EACH Bl INHALATION SCH (08:00)
[2022-08-17] MEDS: SODIUM CHLORIDE 0.9% 1,000 ML IV SCH ×2 (08:12→16:12)
[2022-08-17] MEDS: ONDANSETRON 4 MG/2 ML VIAL IVP PRN ×2 (08:39→16:40)
[2022-08-17] MEDS: PIPERACILLIN-TAZOBACTAM 3.375 GM in SODIUM CHLORIDE 0.9% 100 ML IVPB SCH ×2 (08:40→16:13)
[2022-08-17] MEDS ORDERED: LORazepam 0.5 MG TAB PO PRN (09:21)
[2022-08-17] MEDS ORDERED: METOCLOPRAMIDE 5 MG/ML 2 ML VIAL IVP PRN (09:21)
[2022-08-17] MEDS: FLUCONAZOLE 100 MG TAB PO SCH (10:39)
[2022-08-17] MEDS: NYSTATIN 100,000 UNIT/ML SUSP 500,000 UNIT/5 ML CUP PO SCH ×4 (10:39→22:16)
[2022-08-17] MEDS: predniSONE 20 MG TAB PO SCH (10:39)
[2022-08-17] MEDS: OXYBUTYNIN CHLORIDE 5 MG TAB PO SCH ×2 (10:39→20:29)
[2022-08-17] MEDS: FAMOTIDINE 20 MG TAB PO SCH ×2 (10:40→20:28)
[2022-08-17] MEDS: PANTOPRAZOLE 40 MG TABLET PO SCH (10:40)
[2022-08-17] MEDS: GABAPENTIN 300 MG CAP PO SCH ×2 (10:40→20:28)
[2022-08-17] MEDS: polyethylene glycoL 3350 17 GM POWD.PACK PO SCH (10:40)
[2022-08-17] MEDS: HEPARIN SODIUM,PORCINE/PF 5,000 UNIT/0.5 ML SYRINGE SQ SCH ×2 (10:40→16:13)
[2022-08-17 10:46] LABS: Basophils # (A) 0.03 X 10*3/uL (0.00-0.10); Basophils % (A) 0.1 %; Eosinophils # (A) 0.06 X 10*3/uL (0.04-0.35); Eosinophils % (A) 0.3 %; HGB 7.7 g/dL (12.0-15.0); Immature Grans, Automated 1.2 %; Lymphocytes # (A) 0.62 X 10*3/uL (0.90-5.00); Lymphocytes % (A) 3.1 %; MCH 29.3 pg (27.0-32.0); MCHC 30.8 g/dL (32.0-37.0); MCV 95.1 fL (80.0-97.0); Monocytes # (A) 0.86 X 10*3/uL (0.20-1.00); Monocytes % (A) 4.3 %; NRBC Per 100 WBC 0 /100 WBCS (0.0-0.0); Platelet Count 326 X 10*3/uL (140-440); RBC 2.63 X 10*6/uL (4.10-5.20); RDW 15.3 % (11.5-14.5); WBC 20.12 X 10*3/uL (4.50-10.00)
[2022-08-17 11:02] LABS: African American GFR (CKD) 121.5 (60.0-200.0); Anion Gap 12.3 mmol/L (10.00-18.00); BUN/Creat Ratio 19.67 Ratio (12.00-20.00); Blood Urea Nitrogen 11.8 mg/dL (9.0-27.0); Calcium 8.2 mg/dL (8.7-10.3); Carbon Dioxide 25.7 mmol/L (20.0-27.5); Non-African American GFR(CKD) 104.8 (60.0-200.0); Potassium 4.2 mmol/L (3.5-5.5)
[2022-08-17 11:19] LABS: Glucose,Whole Blood 71 mg/dL (70-110)
[2022-08-17] MEDS ORDERED: IPRATROPIUM-ALBUTEROL 3 ML NEB INHALATION PRN (13:11)
--- NOTE | 2022-08-17 14:19 | P.CONS ---
History of Present Illness - Reason for Consult Consult date: 08/17/22 Metastatic adenocarcinoma - Chief Complaint Shortness of breath - History of Present Illness Ms. Lui is a 52-year-old woman with a past medical history significant for recent diagnosis of metastatic adenocarcinoma of unclear primary who presents with increased shortness of breath. On her last admission, she had a liver biopsy performed on 07/26/2022 which noted poorly differentiated adenocarcinoma that was positive for CK 7, CDX2, and rare CK 20. Staining for TTF-1, Naprosyn A, P 40, gadolinium 3, CA 125, ER, and HSA was negative. Rare WT 1 was noted. Based on these findings, there was concern for a GI origin (specifically pancreaticobiliary) despite the lung lesions that were initially noted on PET/CT and CT of the chest. She was referred to [facility] to have EGD with EUS on discharge. This was performed on 08/15/2022, with operative report noting 1.7 x 1.5 cm hypoechoic mass in the pancreatic body. Multiple passes for biopsy were obtained. She also had evidence of a cyst in the pancreatic body that was suspicious for IPMN. Extrinsic compression of the duodenal bulb secondary to this hypoechoic pancreatic mass and LA grade C esophagitis in the distal esopha bebe were also noted. Since procedure, she is noted throat soreness but also had increased shortness of breath. This prompted her to present to the ED for additional management. In the ED, she is noted to have a infiltrate in the mid to lower left lung, which was concerning for pneumonia. Labs were significant for AST 122, ALC 55, alkaline phosphatase 1000 2047, total bilirubin 0.6. Creatinine was at baseline with low chloride. Cell counts were stable with white blood cell count 20.2 (ANC 9), hemoglobin 9.8, platelets 386. COVID-19, flu A, and flu B PCR is were negative. Urinalysis was not suspicious for infection. She was started on azithromycin and Zosyn along with 1 L bolus of normal saline. She was also given a dose of morphine 4 mg IV and admitted to medicine for additional m anagement and monitoring. Blood cultures are in process. Currently, she notes having dyspnea, which is unchanged from initial presentation. She continues to have anorexia along with progressive abdominal discomfort. She noted she's been having to use her immediate release Percocet every 4 hours in addition to long- acting oxycodone. Review of Systems 14 point review of systems conducted with pertinent positives and negatives as noted per HPI Past Medical History Past Medical History: Asthma, COPD, GERD/Reflux, Hyperlipidemia, Hypertension, Osteoarthritis (OA), Pneumonia, Pulmonary Embolus (PE), Renal Disease, Respiratory Disorder, Vascular Disorder Additional Past Medical History / Comment(s): Brain aneurysm with repair, peripheral neuropathy, home O2 at 3L AT NIGHT AND PRN , chronic lower jimmie k/cervical pain, CHRONIC KIDNEY DISEASE History of Any Multi-Drug Resistant Organisms: None Reported Past Surgical History: Adenoidectomy, Breast Surgery, Section, Cholecystectomy, Hysterectomy, Tonsillectomy Additional Past Surgical History / Comment(s): D&C, lower back pain clinic procedure/ablation, several mini laparoscopies d/t abnormal vaginal bleeding, brain aneurysm repair, septoplasty/facial cyst excision, dental extractions, bilateral breast implants Past Anesthesia/Blood Transfusion Reactions: No Reported Reaction, Family History of Problems w/ Anesthesia Additional Past Anesthesia/Blood Transfusion Reaction / Comm: Pt received blood in past without reaction. SISTER HAS POST OP NAUSEA AND VOMITING Past Psychological History: Anxiety, Depression Smoking Status: Current every day smoker - Past Family History Mother Family Medical History: Cancer Additional Family Medical History / Comment(s): Colon, Uterine cancer w/ mets Father Family Medical History: COPD, Respiratory Disorder Additional Family Medical History / Comment(s): Father from pulmonary fibrosis. Medications and Allergies Home Medications Medication Instructions Recorded Confirmed Type Desvenlafaxine [Pristiq ER] 100 mg PO HS 11/30/19 08/16/22 History Primidone [Mysoline] 100 mg PO HS 11/30/19 08/16/22 History Ipratropium-Albuterol Nebulize 3 ml INHALATION RT-TID PRN 06/14/20 08/16/22 History [Duoneb 0.5 mg-3 mg/3 ml Soln] traZODone HCL 200 mg PO HS 06/14/20 08/16/22 History methocarbamoL [Robaxin-750] 750 mg PO TID PRN 09/18/21 08/16/22 History Gabapentin [Neurontin] 300 mg PO BID #6 cap 09/21/21 08/16/22 Rx Albuterol Sulfate [Proair Hfa] 2 puff INHALATION RT-Q6H PRN 02/17/22 08/16/22 History Cariprazine HCl [Vraylar] 3 mg PO HS 02/17/22 08/16/22 History Ergocalciferol [Vitamin D2 (1250 1,250 mcg PO MO 02/17/22 08/16/22 History Mcg = 45113 Iu)] Fluticasone/Umeclidin/Vilanter 1 puff INHALATION RT-DAILY 02/17/22 08/16/22 History [Trelegy Ellipta 100-62.5-25] Oxybutynin Chloride 5 mg PO BID 03/07/22 08/16/22 History Desvenlafaxine Succinate [Pristiq 50 mg PO HS 07/25/22 08/16/22 History ER] Ondansetron Odt [Zofran ODT] 8 mg PO Q8H PRN 07/25/22 08/16/22 History Prochlorperazine [Compazine] 10 mg PO BID PRN 07/25/22 08/16/22 History Budesonide-Formot 160-4.5 Mcg 2 puff INHALATION RT-BID 30 Days 07/31/22 08/16/22 Rx [Symbicort 160-4.5 Mcg Inhaler] #1 each Docusate [Colace] 100 mg PO BID cap 07/31/22 08/16/22 Rx Famotidine [Pepcid] 20 mg PO BID tab 07/31/22 08/16/22 Rx Folic Acid 1 mg PO DAILY #90 tablet 07/31/22 08/16/22 Rx Ipratropium-Albuterol Nebulize 3 ml INHALATION RT-QID 30 Days 07/31/22 08/16/22 Rx [Duoneb 0.5 mg-3 mg/3 ml Soln] #120 each Morphine Sulfate ER [Ms Contin] 30 mg PO Q12HR tab 07/31/22 08/16/22 Rx polyethylene glycoL 3350 [Miralax] 17 gm PO DAILY packet 07/31/22 08/16/22 Rx Fluconazole [Diflucan] 200 mg PO DIRECTED 08/16/22 08/16/22 History Omeprazole [PriLOSEC] 20 mg PO DIRECTED 08/16/22 08/16/22 History oxyCODONE-APAP 7.5-325MG [Percocet 1 tab PO Q4HR PRN 08/16/22 08/16/22 History 7.5-325 mg] predniSONE [Deltasone] 20 mg PO DAILY 08/16/22 08/16/22 History Allergies Allergy/AdvReac Type Severity Reaction Status Date / Time amitriptyline [From Elavil] AdvReac loss of Verified 08/16/22 17:21 libido pregabalin [From Lyrica] AdvReac "felt Verified 08/16/22 17:21 super high" Physical Exam Vitals: Vital Signs Temp Pulse Pulse Resp BP BP Pulse Ox 08/17/22 11:35 98.5 F 87 15 106/70 94 L 08/17/22 10:56 106 H 08/17/22 10:48 112 H 08/17/22 07:30 85 107/74 08/17/22 04:57 98.1 F 103 H 16 97/76 99 08/16/22 19:37 108 H 08/16/22 19:31 106 H 08/16/22 19:15 98.3 F 106 H 16 99/68 94 L 08/16/22 16:42 116 H 08/16/22 16:32 113 H 08/16/22 16:30 120 H 16 96/76 95 08/16/22 16:00 119 H 16 91/75 96 08/16/22 15:30 117 H 16 88/75 95 08/16/22 15:15 16 08/16/22 15:00 118 H 16 90/69 95 08/16/22 14:57 98.4 F 130 H 16 96/75 96 Intake and Output 08/16/22 08/17/22 08/17/22 22:59 06:59 14:59 Intake Total 2 Output Total 200 Balance 2 -200 Intake: Oral 2 Output: Urine 200 Other: Voiding Method Bedside Commode Weight 51 kg - Constitutional Emotionally distant and frustrated General appearance: mild distress, thin - EENT Eyes: EOMI - Respiratory Respiratory: bilateral: diminished, negative: rhonchi, wheezing - Cardiovascular Tachycardia Rhythm: regular - Gastrointestinal General gastrointestinal: hepatomegaly, normal bowel sounds Localized gastrointestinal: tender: RUQ (Tender hepatomegaly) - Integumentary Integumentary: pale, no rash - Neurologic Neurologic: CNII-XII intact Results CBC & Chem 7: 08/17/22 06:26 08/17/22 06:26 Labs: Abnormal Lab Results - Last 24 Hours (Table) 08/16/22 08/16/22 08/16/22 Range/Units 15:59 15:59 15:59 WBC 20.2 H (3.8-10.6) k/uL RBC 3.23 L (3.80-5.40) m/uL Hgb 9.8 L (11.4-16.0) gm/dL Hct 30.1 L (34.0-46.0) % MCHC (32.0-37.0) g/dL RDW (11.5-14.5) % Immature Gran # (0.00-0.04) X 10*3/uL Neutrophils # 19.0 H (1.3-7.7) k/uL Lymphocytes # 0.5 L (1.0-4.8) k/uL PT 14.0 H (9.0-12.0) sec INR 1.3 H (<1.2) APTT 21.0 L (22.0-30.0) sec Sodium 133 L (137-145) mmol/L Chloride 95 L (98-107) mmol/L Carbon Dioxide 32 H (22-30) mmol/L Glucose 49 L* (74-99) mg/dL POC Glucose (mg/dL) (70-110) mg/dL Plasma Lactic Acid Juan (0.7-2.0) mmol/L Calcium (8.7-10.3) mg/dL AST 122 H (14-36) U/L ALT 55 H (4-34) U/L Alkaline Phosphatase 1247 H (38-126) U/L Total Protein 5.2 L (6.3-8.2) g/dL Albumin 2.4 L (3.5-5.0) g/dL Urine Appearance (Clear) Urine Protein (Negative) Urine Glucose (UA) (Negative) Urine Ketones (Negative) Ur Squamous Epith Cells (0-4) /hpf Amorphous Sediment (None) /hpf Hyaline Casts (0-2) /lpf Urine Mucus (None) /hpf 08/16/22 08/16/22 08/17/22 Range/Units 15:59 18:27 04:38 WBC (3.8-10.6) k/uL RBC (3.80-5.40) m/uL Hgb (11.4-16.0) gm/dL Hct (34.0-46.0) % MCHC (32.0-37.0) g/dL RDW (11.5-14.5) % Immature Gran # (0.00-0.04) X 10*3/uL Neutrophils # (1.3-7.7) k/uL Lymphocytes # (1.0-4.8) k/uL PT (9.0-12.0) sec INR (<1.2) APTT (22.0-30.0) sec Sodium (137-145) mmol/L Chloride (98-107) mmol/L Carbon Dioxide (22-30) mmol/L Glucose (74-99) mg/dL POC Glucose (mg/dL) 127 H (70-110) mg/dL Plasma Lactic Acid Juan 2.2 H* (0.7-2.0) mmol/L Calcium (8.7-10.3) mg/dL AST (14-36) U/L ALT (4-34) U/L Alkaline Phosphatase (38-126) U/L Total Protein (6.3-8.2) g/dL Albumin (3.5-5.0) g/dL Urine Appearance Cloudy H (Clear) Urine Protein 1+ H (Negative) Urine Glucose (UA) 1+ H (Negative) Urine Ketones Trace H (Negative) Ur Squamous Epith Cells 5 H (0-4) /hpf Amorphous Sediment Occasional H (None) /hpf Hyaline Casts 5 H (0-2) /lpf Urine Mucus Rare H (None) /hpf 08/17/22 08/17/22 Range/Units 06:26 06:26 WBC 20.12 H (3.8-10.6) k/uL RBC 2.63 L (3.80-5.40) m/uL Hgb 7.7 L (11.4-16.0) gm/dL Hct 25.0 L (34.0-46.0) % MCHC 30.8 L (32.0-37.0) g/dL RDW 15.3 H (11.5-14.5) % Immature Gran # 0.25 H (0.00-0.04) X 10*3/uL Neutrophils # 18.30 H (1.3-7.7) k/uL Lymphocytes # 0.62 L (1.0-4.8) k/uL PT (9.0-12.0) sec INR (<1.2) APTT (22.0-30.0) sec Sodium (137-145) mmol/L Chloride (98-107) mmol/L Carbon Dioxide (22-30) mmol/L Glucose (74-99) mg/dL POC Glucose (mg/dL) (70-110) mg/dL Plasma Lactic Acid Juan (0.7-2.0) mmol/L Calcium 8.2 L (8.7-10.3) mg/dL AST (14-36) U/L ALT (4-34) U/L Alkaline Phosphatase (38-126) U/L Total Protein (6.3-8.2) g/dL Albumin (3.5-5.0) g/dL Urine Appearance (Clear) Urine Protein (Negative) Urine Glucose (UA) (Negative) Urine Ketones (Negative) Ur Squamous Epith Cells (0-4) /hpf Amorphous Sediment (None) /hpf Hyaline Casts (0-2) /lpf Urine Mucus (None) /hpf Chest x-ray: report reviewed, image reviewed Assessment and Plan Assessment: Ms. Lui is a 52-year-old woman with a past medical history significant for recently diagnosed metastatic adenocarcinoma of unclear primary who presents with increased dyspnea following EGD performed on 08/15/2022 with radiographic evidence concerning for pneumonia (1) Neutrophilic leukocytosis Current Visit: Yes Status: Acute Code(s): D72.9 - DISORDER OF WHITE BLOOD CELLS, UNSPECIFIED SNOMED Code(s): 732566961 (2) Normocytic anemia Current Visit: Yes Status: Acute Code(s): D64.9 - ANEMIA, UNSPECIFIED SNOMED Code(s): 887185520 (3) Cancer Current Visit: Yes Status: Acute Code(s): C80.1 - MALIGNANT (PRIMARY) NEOPLASM, UNSPECIFIED SNOMED Code(s): 850076075 (4) Pneumonia Current Visit: Yes Status: Acute Code(s): J18.9 - PNEUMONIA, UNSPECIFIED ORGANISM SNOMED Code(s): 480137021 Plan: #Metastatic poorly differentiated adenocarcinoma of unclear primary -Initial liver biopsy performed on 07/26/2022 revealed immunohistochemistry concerning for pancreaticobiliary GI origin -EGD with EUS performed on 08/15/2022 at [facility] revealed a 1.5 x 1.7 hypoechoic mass in the pancreatic body that was suspicious for malignancy -Pathology report from EGD biopsy is currently pending -Cancer type ID along with MDS and medial 1 testing from liver biopsy performed on 07/26/2022 is also pending -This was discussed with Ms. Lui. We will need these results before formal discussion of treatment options can be had -Long-acting oxycodone 30 mg twice a day should be added to her regimen -Based on the requirements of IV morphine, this dose may have to be increased given she was requiring breakthrough medication at home every 4 hours #Healthcare acquired pneumonia -Presented with increased dyspnea and found to have a acute infiltrate in the left lower lobe suspicious for pneumonia on chest x-ray -Agree with broad-spectrum antibiotics as ordered per the primary team -Follow-up blood cultures obtained on admission #Neutrophilic leukocytosis -Likely secondary to metastatic malignancy along with superimposed infection -Continue to monitor #Normocytic anemia -Likely secondary to inflammation from malignancy -Continue to monitor
[2022-08-17] MEDS ORDERED: Magnesium Replacement Protocol 1 EACH MISC MISCELLANE PRN (14:33)
--- NOTE | 2022-08-17 14:33 | P.CONS ---
History of Present Illness - Reason for Consult Consult date: 08/17/22 [facility] Requesting physician: Kendra Moreno - Chief Complaint pain to stomach and throat - History of Present Illness The patient is a 52-year-old female with past medical history remarkable for stage IV lung cancer with metastasis to the liver. She presented emergency department on 08/16/22 with complaints of a sore throat since after having an EGD performed at [facility]. She also has a history COPD and is on 3 L NC at home. She denies any constipation or worsening of her chronic abdominal pain. Denies any nausea or vomiting. Denies any chest pain. Denies any cough. Review of Systems Constitutional: Reports as per HPI Past Medical History Past Medical History: Asthma, COPD, GERD/Reflux, Hyperlipidemia, Hypertension, Osteoarthritis (OA), Pneumonia, Pulmonary Embolus (PE), Renal Disease, Respiratory Disorder, Vascular Disorder Additional Past Medical History / Comment(s): Brain aneurysm with repair, peripheral neuropathy, home O2 at 3L AT NIGHT AND PRN , chronic lower back/cervical pain, CHRONIC KIDNEY DISEASE History of Any Multi-Drug Resistant Organisms: None Reported Past Surgical History: Adenoidectomy, Breast Surgery, Section, Cholecystectomy, Hysterectomy, Tonsillectomy Additional Past Surgical History / Comment(s): D&C, lower back pain clinic pro cedure/ablation, several mini laparoscopies d/t abnormal vaginal bleeding, brain aneurysm repair, septoplasty/facial cyst excision, dental extractions, bilateral breast implants Past Anesthesia/Blood Transfusion Reactions: No Reported Reaction, Family History of Problems w/ Anesthesia Additional Past Anesthesia/Blood Transfusion Reaction / Comm: Pt received blood in past without reaction. SISTER HAS POST OP NAUSEA AND VOMITING Past Psychological History: Anxiety, Depression Smoking Status: Current every day smoker - Past Family History Mother Family Medical History: Cancer Additional Family Medical History / Comment(s): Colon, Uterine cancer w/ mets Father Family Medical History: COPD, Respiratory Disorder Additional Family Medical History / Comment(s): Father from pulmonary fibrosis. Medications and Allergies Home Medications Medication Instructions Recorded Confirmed Type Desvenlafaxine [Pristiq ER] 100 mg PO HS 11/30/19 08/16/22 History Primidone [Mysoline] 100 mg PO HS 11/30/19 08/16/22 History Ipratropium-Albuterol Nebulize 3 ml INHALATION RT-TID PRN 06/14/20 08/16/22 History [Duoneb 0.5 mg-3 mg/3 ml Soln] traZODone HCL 200 mg PO HS 06/14/20 08/16/22 History methocarbamoL [Robaxin-750] 750 mg PO TID PRN 09/18/21 08/16/22 History Gabapentin [Neurontin] 300 mg PO BID #6 cap 09/21/21 08/16/22 Rx Albuterol Sulfate [Proair Hfa] 2 puff INHALATION RT-Q6H PRN 02/17/22 08/16/22 History Cariprazine HCl [Vraylar] 3 mg PO HS 02/17/22 08/16/22 History Ergocalciferol [Vitamin D2 (1250 1,250 mcg PO MO 02/17/22 08/16/22 History Mcg = 29548 Iu)] Fluticasone/Umeclidin/Vilanter 1 puff INHALATION RT-DAILY 02/17/22 08/16/22 History [Trelegy Ellipta 100-62.5-25] Oxybutynin Chloride 5 mg PO BID 03/07/22 08/16/22 History Desvenlafaxine Succinate [Pristiq 50 mg PO HS 07/25/22 08/16/22 History ER] Ondansetron Odt [Zofran ODT] 8 mg PO Q8H PRN 07/25/22 08/16/22 History Prochlorperazine [Compazine] 10 mg PO BID PRN 07/25/22 08/16/22 History Budesonide-Formot 160-4.5 Mcg 2 puff INHALATION RT-BID 30 Days 07/31/22 08/16/22 Rx [Symbicort 160-4.5 Mcg Inhaler] #1 each Docusate [Colace] 100 mg PO BID cap 07/31/22 08/16/22 Rx Famotidine [Pepcid] 20 mg PO BID tab 07/31/22 08/16/22 Rx Folic Acid 1 mg PO DAILY #90 tablet 07/31/22 08/16/22 Rx Ipratropium-Albuterol Nebulize 3 ml INHALATION RT-QID 30 Days 07/31/22 08/16/22 Rx [Duoneb 0.5 mg-3 mg/3 ml Soln] #120 each Morphine Sulfate ER [Ms Contin] 30 mg PO Q12HR tab 07/31/22 08/16/22 Rx polyethylene glycoL 3350 [Miralax] 17 gm PO DAILY packet 07/31/22 08/16/22 Rx Fluconazole [Diflucan] 200 mg PO DIRECTED 08/16/22 08/16/22 History Omeprazole [PriLOSEC] 20 mg PO DIRECTED 08/16/22 08/16/22 History oxyCODONE-APAP 7.5-325MG [Percocet 1 tab PO Q4HR PRN 08/16/22 08/16/22 History 7.5-325 mg] predniSONE [Deltasone] 20 mg PO DAILY 08/16/22 08/16/22 History Allergies Allergy/AdvReac Type Severity Reaction Status Date / Time amitriptyline [From Elavil] AdvReac loss of Verified 08/16/22 17:21 libido pregabalin [From Lyrica] AdvReac "felt Verified 08/16/22 17:21 super high" Physical Exam Vitals: Vital Signs Temp Pulse Pulse Resp BP BP Pulse Ox 08/17/22 11:35 98.5 F 87 15 106/70 94 L 08/17/22 10:56 106 H 08/17/22 10:48 112 H 08/17/22 07:30 85 107/74 08/17/22 04:57 98.1 F 103 H 16 97/76 99 08/16/22 19:37 108 H 08/16/22 19:31 106 H 08/16/22 19:15 98.3 F 106 H 16 99/68 94 L 08/16/22 16:42 116 H 08/16/22 16:32 113 H 08/16/22 16:30 120 H 16 96/76 95 08/16/22 16:00 119 H 16 91/75 96 08/16/22 15:30 117 H 16 88/75 95 08/16/22 15:15 16 08/16/22 15:00 118 H 16 90/69 95 08/16/22 14:57 98.4 F 130 H 16 96/75 96 Intake and Output 08/16/22 08/17/22 08/17/22 22:59 06:59 14:59 Intake Total 2 Output Total 200 Balance 2 -200 Intake: Oral 2 Output: Urine 200 Other: Voiding Method Bedside Commode Weight 51 kg General: Well developed. No acute distress. Chronically ill appearing HEENT: Head is atraumatic, normocephalic. Mucus membranes moist. CV: Tachycardic. S1 and S2. Peripheral pulses equal. 2/4 Lungs: Scattered rhonchi throughout. Respirations labored. Abdomen/GI: Soft. No guarding, rigidity. + abdominal tenderness. Musculoskeletal/ Extremities: GARZA. No gross atrophy. + generalized weakness Vascular: Radial pulses equal. 2/4. No peripheral edema Skin: Warm and dry Neurologic: Awake, alert and oriented times 3. CN II-XII grossly intact. No focal deficits. Psychiatric: Flat affect. Results CBC & Chem 7: 08/17/22 06:26 08/17/22 06:26 Labs: Abnormal Lab Results - Last 24 Hours (Table) 08/16/22 08/16/22 08/16/22 Range/Units 15:59 15:59 15:59 WBC 20.2 H (3.8-10.6) k/uL RBC 3.23 L (3.80-5.40) m/uL Hgb 9.8 L (11.4-16.0) gm/dL Hct 30.1 L (34.0-46.0) % MCHC (32.0-37.0) g/dL RDW (11.5-14.5) % Immature Gran # (0.00-0.04) X 10*3/uL Neutrophils # 19.0 H (1.3-7.7) k/uL Lymphocytes # 0.5 L (1.0-4.8) k/uL PT 14.0 H (9.0-12.0) sec INR 1.3 H (<1.2) APTT 21.0 L (22.0-30.0) sec Sodium 133 L (137-145) mmol/L Chloride 95 L (98-107) mmol/L Carbon Dioxide 32 H (22-30) mmol/L Glucose 49 L* (74-99) mg/dL POC Glucose (mg/dL) (70-110) mg/dL Plasma Lactic Acid Juan (0.7-2.0) mmol/L Calcium (8.7-10.3) mg/dL AST 122 H (14-36) U/L ALT 55 H (4-34) U/L Alkaline Phosphatase 1247 H (38-126) U/L Total Protein 5.2 L (6.3-8.2) g/dL Albumin 2.4 L (3.5-5.0) g/dL Urine Appearance (Clear) Urine Protein (Negative) Urine Glucose (UA) (Negative) Urine Ketones (Negative) Ur Squamous Epith Cells (0-4) /hpf Amorphous Sediment (None) /hpf Hyaline Casts (0-2) /lpf Urine Mucus (None) /hpf 08/16/22 08/16/22 08/17/22 Range/Units 15:59 18:27 04:38 WBC (3.8-10.6) k/uL RBC (3.80-5.40) m/uL Hgb (11.4-16.0) gm/dL Hct (34.0-46.0) % MCHC (32.0-37.0) g/dL RDW (11.5-14.5) % Immature Gran # (0.00-0.04) X 10*3/uL Neutrophils # (1.3-7.7) k/uL Lymphocytes # (1.0-4.8) k/uL PT (9.0-12.0) sec INR (<1.2) APTT (22.0-30.0) sec Sodium (137-145) mmol/L Chloride (98-107) mmol/L Carbon Dioxide (22-30) mmol/L Glucose (74-99) mg/dL POC Glucose (mg/dL) 127 H (70-110) mg/dL Plasma Lactic Acid Juan 2.2 H* (0.7-2.0) mmol/L Calcium (8.7-10.3) mg/dL AST (14-36) U/L ALT (4-34) U/L Alkaline Phosphatase (38-126) U/L Total Protein (6.3-8.2) g/dL Albumin (3.5-5.0) g/dL Urine Appearance Cloudy H (Clear) Urine Protein 1+ H (Negative) Urine Glucose (UA) 1+ H (Negative) Urine Ketones Trace H (Negative) Ur Squamous Epith Cells 5 H (0-4) /hpf Amorphous Sediment Occasional H (None) /hpf Hyaline Casts 5 H (0-2) /lpf Urine Mucus Rare H (None) /hpf 08/17/22 08/17/22 Range/Units 06:26 06:26 WBC 20.12 H (3.8-10.6) k/uL RBC 2.63 L (3.80-5.40) m/uL Hgb 7.7 L (11.4-16.0) gm/dL Hct 25.0 L (34.0-46.0) % MCHC 30.8 L (32.0-37.0) g/dL RDW 15.3 H (11.5-14.5) % Immature Gran # 0.25 H (0.00-0.04) X 10*3/uL Neutrophils # 18.30 H (1.3-7.7) k/uL Lymphocytes # 0.62 L (1.0-4.8) k/uL PT (9.0-12.0) sec INR (<1.2) APTT (22.0-30.0) sec Sodium (137-145) mmol/L Chloride (98-107) mmol/L Carbon Dioxide (22-30) mmol/L Glucose (74-99) mg/dL POC Glucose (mg/dL) (70-110) mg/dL Plasma Lactic Acid Juan (0.7-2.0) mmol/L Calcium 8.2 L (8.7-10.3) mg/dL AST (14-36) U/L ALT (4-34) U/L Alkaline Phosphatase (38-126) U/L Total Protein (6.3-8.2) g/dL Albumin (3.5-5.0) g/dL Urine Appearance (Clear) Urine Protein (Negative) Urine Glucose (UA) (Negative) Urine Ketones (Negative) Ur Squamous Epith Cells (0-4) /hpf Amorphous Sediment (None) /hpf Hyaline Casts (0-2) /lpf Urine Mucus (None) /hpf Chest x-ray: report reviewed Assessment and Plan Assessment: Social * Occupation - Unemployed, was previously a customer service cashier * Marital status - Single * Children/grandchildren - 4 adult children and 3 grandchildren * Residence - House * Who do you reside with - Her sister * ETOH - No * Tobacco - active everyday smoker * Illicit drugs - No Functional Assessment * Able to walk independently - yes * Assistive devices - walker * Able to use the bathroom independently - yes * Continent - yes * Require assistance bathing- no * Able to feed self - yes * Who prepares meals - patient and sister * How many meals a day eaten - 1-2 * Able to clean house/do laundry - occasionally * Transportation - has car and drives when she is feeling well * Able to shop - no * Who manages medications -patient * Who manages finances - patient ans sister Psychological/Emotional * Dementia present - No * Insight and judgment - Intact * Depression - No * Suicidal thoughts - No * Good support system - Yes, family * Patients goals - prolonged survival * Frequent hospitalizations - yes * Desire to keep coming back to the hospital for treatment - yes Symptoms * Pain - 9/10 abdominal pain, Continue Morphine IV, Robaxin, and Neurotin. Added MsContin, * Fatigue - decreased energy * SOB - + sob at rest, worsens with activity. Continue Duoneb, Symbicort, Zosyn, Prednisone, and Zithromax * Insomnia - Yes, continue Trazodone * N/V - Yes, intermittent. Continue Zofran, Reglan, and Compazine * Anxiety - Yes, continue Ativan * Depression - Yes, continue Pristiq, and Vraylar * Confusion - No * Agitation - No * Hallucinations - No * Appetite/weight loss - No recent weight loss, + decreased appetite * Dysphagia - No, on a heart healthy diet * Constipation - No, continue Miralax, and * Incontinence - Occasional, continue Ditropan * Itch - No * Cough - No * Thrush - Yes, continue Nystatin swish and swallow Plan: Summary/Goals - The patient is resting in bed. She is A&O x 3 but has trouble finding some of her words. She states that she had severe pain in her stomach and throat and shortness of breath after her EGD and EUS at [facility] yesterday. She states she has just been diagnosed with liver and lung cancer in June. She is still in shock. She states that just lost her mother to cancer in January. Emotional support provided. Dr. Rincon was at the bedside. He told her that there was a mass in the pancreas that looked suspicious yesterday that was biopsied at [facility]. The patient stated that she is waiting for test results to see what her treatment plan will entail. She is tired of being in pain. Her goal is prolonged survival and is interested in treatment if it will give her even a couple extra months to live. Advanced Directives - None on file Code Status - Full code Thank you for this consultation Ella Knutson [facility] Palliative [facility] [id number] Email: [email or web address] Time with Patient: Greater than 30
--- NOTE | 2022-08-17 14:43 | P.HPIM ---
History of Present Illness H&P Date: 08/17/22 Chief Complaint: Worsening shortness of breath, abdominal pain This is a 52-year-old female past medical history of advanced COPD, nicotine dependence, marijuana use , gastroesophageal reflux disease , metastatic adenocarcinoma cancer-etiology unclear, currently being worked up, and multiple other medical issues presented to the ER with complaints of worsening dyspnea 1-2 days, ongoing poor intake, nausea ,vomiting, abdominal pain times days. Reports she was recently at [facility] 1-2 days ago for EGD/EUS with biopsy. No treatment started yet, last at oncology approximately 2 weeks ago. Denies dysuria. Reports regular bowel movements with last bowel movement yesterday. Denies any hemoptysis, rectal bleeding. Denies any chest pain, palpitations. Denies any syncope. Denies any fever, chills, reports nonproductive cough. Chest x-ray reporting new left mid lower lobe peripheral acute infiltrate, persistent anterior left midlung 4.0 cm mass worrisome for neoplasm. Afebrile, WBC 20.2, hemoglobin 9.8, platelets 386, neutrophils 94, INR 1.3, sodium 133, potassium 4.1, bicarb 32. Glucose 49, POC glucose 103. Lactic acid 1.4 ,Renal function stable,T bili 0.6, AST 122, ALT 55, alk phos 1247. BNP 1140. Carroll virus, influenza A and B PCR's negative. Received IV fluid bolus, IV fluid hydration, IV antibiotics of Zosyn and azithromycin, antiemetics and pain management initiated. Blood cultures obtained. Review of Systems ROS Statement: Those systems with pertinent positive or pertinent negative responses have been documented in the HPI. ROS Other: All systems not noted in ROS Statement are negative. Past Medical History Past Medical History: Asthma, COPD, GERD/Reflux, Hyperlipidemia, Hypertension, Osteoarthritis (OA), Pneumonia, Pulmonary Embolus (PE), Renal Disease, Respiratory Disorder, Vascular Disorder Additional Past Medical History / Comment(s): Brain aneurysm with repair, peripheral neuropathy, home O2 at 3L AT NIGHT AND PRN , chronic lower back/cervical pain, CHRONIC KIDNEY DISEASE History of Any Multi-Drug Resistant Organisms: None Reported Past Surgical History: Adenoidectomy, Breast Surgery, Section, Cholecystectomy, Hysterectomy, Tonsillectomy Additional Past Surgical History / Comment(s): D&C, lower back pain clinic procedure/ablation, several mini laparoscopies d/t abnormal vaginal bleeding, brain aneurysm repair, septoplasty/facial cyst excision, dental extractions, bilateral breast implants Past Anesthesia/Blood Transfusion Reactions: No Reported Reaction, Family Hist ory of Problems w/ Anesthesia Additional Past Anesthesia/Blood Transfusion Reaction / Comment(s): Pt received blood in past without reaction. SISTER HAS POST OP NAUSEA AND VOMITING Past Psychological History: Anxiety, Depression Smoking Status: Current every day smoker - Past Family History Mother Family Medical History: Cancer Additional Family Medical History / Comment(s): Colon, Uterine cancer w/ mets Father Family Medical History: COPD, Respiratory Disorder Additional Family Medical History / Comment(s): Father from pulmonary fibrosis. Medications and Allergies Home Medications Medication Instructions Recorded Confirmed Type Desvenlafaxine [Pristiq ER] 100 mg PO HS 11/30/19 08/16/22 History Primidone [Mysoline] 100 mg PO HS 11/30/19 08/16/22 History Ipratropium-Albuterol Nebulize 3 ml INHALATION RT-TID PRN 06/14/20 08/16/22 History [Duoneb 0.5 mg-3 mg/3 ml Soln] traZODone HCL 200 mg PO HS 06/14/20 08/16/22 History methocarbamoL [Robaxin-750] 750 mg PO TID PRN 09/18/21 08/16/22 History Gabapentin [Neurontin] 300 mg PO BID #6 cap 09/21/21 08/16/22 Rx Albuterol Sulfate [Proair Hfa] 2 puff INHALATION RT-Q6H PRN 02/17/22 08/16/22 History Cariprazine HCl [Vraylar] 3 mg PO HS 02/17/22 08/16/22 History Ergocalciferol [Vitamin D2 (1250 1,250 mcg PO MO 02/17/22 08/16/22 History Mcg = 18712 Iu)] Fluticasone/Umeclidin/Vilanter 1 puff INHALATION RT-DAILY 02/17/22 08/16/22 History [Trelegy Ellipta 100-62.5-25] Oxybutynin Chloride 5 mg PO BID 03/07/22 08/16/22 History Desvenlafaxine Succinate [Pristiq 50 mg PO HS 07/25/22 08/16/22 History ER] Ondansetron Odt [Zofran ODT] 8 mg PO Q8H PRN 07/25/22 08/16/22 History Prochlorperazine [Compazine] 10 mg PO BID PRN 07/25/22 08/16/22 History Budesonide-Formot 160-4.5 Mcg 2 puff INHALATION RT-BID 30 Days 07/31/22 08/16/22 Rx [Symbicort 160-4.5 Mcg Inhaler] #1 each Docusate [Colace] 100 mg PO BID cap 07/31/22 08/16/22 Rx Famotidine [Pepcid] 20 mg PO BID tab 07/31/22 08/16/22 Rx Folic Acid 1 mg PO DAILY #90 tablet 07/31/22 08/16/22 Rx Ipratropium-Albuterol Nebulize 3 ml INHALATION RT-QID 30 Days 07/31/22 08/16/22 Rx [Duoneb 0.5 mg-3 mg/3 ml Soln] #120 each Morphine Sulfate ER [Ms Contin] 30 mg PO Q12HR tab 07/31/22 08/16/22 Rx polyethylene glycoL 3350 [Miralax] 17 gm PO DAILY packet 07/31/22 08/16/22 Rx Fluconazole [Diflucan] 200 mg PO DIRECTED 08/16/22 08/16/22 History Omeprazole [PriLOSEC] 20 mg PO DIRECTED 08/16/22 08/16/22 History oxyCODONE-APAP 7.5-325MG [Percocet 1 tab PO Q4HR PRN 08/16/22 08/16/22 History 7.5-325 mg] predniSONE [Deltasone] 20 mg PO DAILY 08/16/22 08/16/22 History Allergies Allergy/AdvReac Type Severity Reaction Status Date / Time amitriptyline [From Elavil] AdvReac loss of Verified 08/16/22 17:21 libido pregabalin [From Lyrica] AdvReac "felt Verified 08/16/22 17:21 super high" Physical Exam Vitals: Vital Signs Temp Pulse Pulse Resp BP BP Pulse Ox 08/17/22 07:30 85 107/74 08/17/22 04:57 98.1 F 103 H 16 97/76 99 08/16/22 19:37 108 H 08/16/22 19:31 106 H 08/16/22 19:15 98.3 F 106 H 16 99/68 94 L 08/16/22 16:42 116 H 08/16/22 16:32 113 H 08/16/22 16:30 120 H 16 96/76 95 08/16/22 16:00 119 H 16 91/75 96 08/16/22 15:30 117 H 16 88/75 95 08/16/22 15:15 16 08/16/22 15:00 118 H 16 90/69 95 08/16/22 14:57 98.4 F 130 H 16 96/75 96 Intake and Output 08/16/22 08/17/22 08/17/22 22:59 06:59 14:59 Intake Total 2 Output Total 200 Balance 2 -200 Intake: Oral 2 Output: Urine 200 Other: Voiding Method Bedside Commode Weight 51 kg GENERAL: Cachexic ,Sitting up in bed, no acute distress HEENT: Normocephalic/atraumatic, PERRLA,conjunctiva pink, sclera white. Oral mucosa dry NECK: Supple, no JVD, no thyroid enlargement LUNGS: Equal air entry with few scattered rhonchi, diminished breath sounds CVS: Regular rate and rhythm, normal S1 and S2, tachycardia no gallops, no murmurs, no rubs ABDOMEN: Firm, distended, mid epigastric, left lower quadrant tenderness, hepatosplenomegaly,no guarding or rigidity, positive bowel sounds. EXTREMITIES: No clubbing, no edema, no cyanosis, + pulses and upper and lower extremities. SKIN: Warm and dry, No rashes NERVOUS SYSTEM: Cranial nerve II through XII grossly intact, no focal deficits, strength and sensation grossly intact. PSYCHIATRIC: Alert and oriented -3. Mood and affect normal. Results CBC & Chem 7: 08/17/22 06:26 08/17/22 06:26 Labs: Abnormal Lab Results - Last 24 Hours (Table) 08/16/22 08/16/22 08/16/22 Range/Units 15:59 15:59 15:59 WBC 20.2 H (3.8-10.6) k/uL RBC 3.23 L (3.80-5.40) m/uL Hgb 9.8 L (11.4-16.0) gm/dL Hct 30.1 L (34.0-46.0) % Neutrophils # 19.0 H (1.3-7.7) k/uL Lymphocytes # 0.5 L (1.0-4.8) k/uL PT 14.0 H (9.0-12.0) sec INR 1.3 H (<1.2) APTT 21.0 L (22.0-30.0) sec Sodium 133 L (137-145) mmol/L Chloride 95 L (98-107) mmol/L Carbon Dioxide 32 H (22-30) mmol/L Glucose 49 L* (74-99) mg/dL POC Glucose (mg/dL) (70-110) mg/dL Plasma Lactic Acid Juan (0.7-2.0) mmol/L AST 122 H (14-36) U/L ALT 55 H (4-34) U/L Alkaline Phosphatase 1247 H (38-126) U/L Total Protein 5.2 L (6.3-8.2) g/dL Albumin 2.4 L (3.5-5.0) g/dL Urine Appearance (Clear) Urine Protein (Negative) Urine Glucose (UA) (Negative) Urine Ketones (Negative) Ur Squamous Epith Cells (0-4) /hpf Amorphous Sediment (None) /hpf Hyaline Casts (0-2) /lpf Urine Mucus (None) /hpf 08/16/22 08/16/22 08/17/22 Range/Units 15:59 18:27 04:38 WBC (3.8-10.6) k/uL RBC (3.80-5.40) m/uL Hgb (11.4-16.0) gm/dL Hct (34.0-46.0) % Neutrophils # (1.3-7.7) k/uL Lymphocytes # (1.0-4.8) k/uL PT (9.0-12.0) sec INR (<1.2) APTT (22.0-30.0) sec Sodium (137-145) mmol/L Chloride (98-107) mmol/L Carbon Dioxide (22-30) mmol/L Glucose (74-99) mg/dL POC Glucose (mg/dL) 127 H (70-110) mg/dL Plasma Lactic Acid Juan 2.2 H* (0.7-2.0) mmol/L AST (14-36) U/L ALT (4-34) U/L Alkaline Phosphatase (38-126) U/L Total Protein (6.3-8.2) g/dL Albumin (3.5-5.0) g/dL Urine Appearance Cloudy H (Clear) Urine Protein 1+ H (Negative) Urine Glucose (UA) 1+ H (Negative) Urine Ketones Trace H (Negative) Ur Squamous Epith Cells 5 H (0-4) /hpf Amorphous Sediment Occasional H (None) /hpf Hyaline Casts 5 H (0-2) /lpf Urine Mucus Rare H (None) /hpf Thrombosis Risk Factor Assmnt - Choose All That Apply Any of the Below Risk Factors Present?: Yes Each Factor Represents 1 point: Age 41-60 years, Swollen legs (current) Other Risk Factors: Yes Each Risk Factor Represents 2 Points: Malignancy Each Risk Factor Represents 3 Points: History of DVT/PE Other congenital or acquired thrombophilia - If yes, enter type in comment: No Thrombosis Risk Factor Assessment Total Risk Factor Score: 7 Thrombosis Risk Factor Assessment Level: High Risk Assessment and Plan Assessment: Acute left mid, lower lung pneumonia, healthcare acquired. Recently at [facility] for her what appears to be EGD with EUS, in a patient with metastatic adenocarcinoma ,unclear primary-workup in progress. Multiple enlarged liver masses reported on CT of 07/31/2022, consistent with metastatic disease, chest x-rays reporting possible anterior mediastinal mass, left midlung 4.0 cm mass. Oncology following Acute on chronic hypoxic respiratory failure, secondary to the above, wears 3 L nasal cannula O2 at home Leukocytosis secondary to the above Anemia, secondary to malignancy COPD, advanced Hypertension Hyperlipidemia Osteoarthritis History of PE Chronic back and neck pain Depression Moderate protein calorie malnutrition, BMI 19.3 Failure to thrive, poor diet intake times weeks Plan: Continue on current medication regime ,monitoring and symptomatic treatment. Current Labs pending. IV fluid hydration, IV antibiotics. Cultures in progress. PPI for GI prophylaxis. Maintain on anti-emetics with Reglan added to regimen. Aggressive pulmonary toileting with nebulized bronchodilators. O btaining [facility] records from recent testing performed,oncology consult in place, recommendations pending. Prognosis guarded given multiple complex medical issues. Consult to palliative care for informational meeting. The impression and plan of care has been dictated as directed. : I performed a history and examination of this patient, discussed the same with the dictator. I agree with the dictator's note ,documented as a scribe. Any additional findings or plans will be noted.
[2022-08-17 17:09] LABS: Glucose,Whole Blood 80 mg/dL (70-110)
[2022-08-17] MEDS ORDERED: AZITHROMYCIN 500 MG in SODIUM CHLORIDE 0.9% 250 ML IVPB SCH (18:00)
[2022-08-17 20:24] LABS: Glucose,Whole Blood 75 mg/dL (70-110)
[2022-08-17] MEDS: NON FORMULARY DRUG (Cariprazine Hcl [Vraylar] 3 MG Capsule) PO SCH (20:28)
[2022-08-17] MEDS: MORPHINE SULFATE ER 30 MG TABLET PO SCH (20:28)
[2022-08-17] MEDS: DESVENLAFAXINE SUCCINATE 50 MG TAB.ER.24H PO SCH (20:28)
[2022-08-17] MEDS: traZODone HCL 100 MG TAB PO SCH (20:30)
[2022-08-17] MEDS: AZITHROMYCIN 500 MG in SODIUM CHLORIDE 0.9% 250 ML IVPB SCH (22:16)
[2022-08-18] MEDS: HEPARIN SODIUM,PORCINE/PF 5,000 UNIT/0.5 ML SYRINGE SQ SCH ×4 (00:41→23:50)
[2022-08-18] MEDS: PIPERACILLIN-TAZOBACTAM 3.375 GM in SODIUM CHLORIDE 0.9% 100 ML IVPB SCH ×4 (00:41→23:50)
[2022-08-18] MEDS: SODIUM CHLORIDE 0.9% 1,000 ML IV SCH ×3 (00:42→12:47)
[2022-08-18] MEDS: MORPHINE SULFATE 4 MG/ML SYRINGE IV PRN ×3 (05:50→18:31)
[2022-08-18 07:19] LABS: Glucose,Whole Blood 74 mg/dL (70-110)
[2022-08-18] MEDS: IPRATROPIUM-ALBUTEROL 3 ML NEB INHALATION SCH ×4 (07:41→19:20)
[2022-08-18] MEDS: SYMBICORT 160-4.5 MCG INHALER INHALATION SCH ×2 (07:41→19:20)
[2022-08-18] MEDS: FLUCONAZOLE 100 MG TAB PO SCH (08:49)
[2022-08-18] MEDS: OXYBUTYNIN CHLORIDE 5 MG TAB PO SCH ×2 (08:49→20:44)
[2022-08-18] MEDS: MORPHINE SULFATE ER 30 MG TABLET PO SCH ×2 (08:50→20:44)
[2022-08-18] MEDS: PANTOPRAZOLE 40 MG TABLET PO SCH (08:50)
[2022-08-18] MEDS: predniSONE 20 MG TAB PO SCH (08:50)
[2022-08-18] MEDS: GABAPENTIN 300 MG CAP PO SCH ×2 (08:50→20:44)
[2022-08-18] MEDS: polyethylene glycoL 3350 17 GM POWD.PACK PO SCH (08:50)
[2022-08-18] MEDS: FAMOTIDINE 20 MG TAB PO SCH ×2 (08:50→20:44)
[2022-08-18] MEDS: NYSTATIN 100,000 UNIT/ML SUSP 500,000 UNIT/5 ML CUP PO SCH ×4 (08:50→21:40)
[2022-08-18 11:19] LABS: Glucose,Whole Blood 82 mg/dL (70-110)
[2022-08-18] MEDS: MAGNESIUM SULFATE-D5W PMX 1 GM in DEXTROSE/WATER 1 100ML.BAG IVPB SCH ×2 (12:47→13:48)
[2022-08-18 17:13] LABS: Glucose,Whole Blood 73 mg/dL (70-110)
[2022-08-18 20:13] LABS: Glucose,Whole Blood 97 mg/dL (70-110)
[2022-08-18] MEDS: NON FORMULARY DRUG (Cariprazine Hcl [Vraylar] 3 MG Capsule) PO SCH (20:42)
[2022-08-18] MEDS: traZODone HCL 100 MG TAB PO SCH (20:44)
[2022-08-18] MEDS: DESVENLAFAXINE SUCCINATE 50 MG TAB.ER.24H PO SCH (20:44)
[2022-08-18] MEDS: AZITHROMYCIN 500 MG in SODIUM CHLORIDE 0.9% 250 ML IVPB SCH (20:58)
[2022-08-19] MEDS: SODIUM CHLORIDE 0.9% 1,000 ML IV SCH ×2 (01:49→16:10)
[2022-08-19] MEDS: MORPHINE SULFATE 4 MG/ML SYRINGE IV PRN (05:00)
[2022-08-19 07:10] LABS: Glucose,Whole Blood 82 mg/dL (70-110)
[2022-08-19] MEDS: FAMOTIDINE 20 MG TAB PO SCH ×2 (08:41→20:35)
[2022-08-19] MEDS: GABAPENTIN 300 MG CAP PO SCH ×2 (08:41→20:35)
[2022-08-19] MEDS: predniSONE 20 MG TAB PO SCH (08:41)
[2022-08-19] MEDS: HEPARIN SODIUM,PORCINE/PF 5,000 UNIT/0.5 ML SYRINGE SQ SCH ×2 (08:41→16:10)
[2022-08-19] MEDS: PANTOPRAZOLE 40 MG TABLET PO SCH (08:41)
[2022-08-19] MEDS: FLUCONAZOLE 100 MG TAB PO SCH (08:41)
[2022-08-19] MEDS: OXYBUTYNIN CHLORIDE 5 MG TAB PO SCH ×2 (08:41→20:35)
[2022-08-19] MEDS: NYSTATIN 100,000 UNIT/ML SUSP 500,000 UNIT/5 ML CUP PO SCH ×4 (08:41→22:33)
[2022-08-19] MEDS: polyethylene glycoL 3350 17 GM POWD.PACK PO SCH (08:42)
[2022-08-19] MEDS: PIPERACILLIN-TAZOBACTAM 3.375 GM in SODIUM CHLORIDE 0.9% 100 ML IVPB SCH ×2 (08:42→16:09)
[2022-08-19] MEDS: MORPHINE SULFATE ER 30 MG TABLET PO SCH (08:42)
[2022-08-19] MEDS: SYMBICORT 160-4.5 MCG INHALER INHALATION SCH ×2 (08:51→20:18)
[2022-08-19] MEDS: IPRATROPIUM-ALBUTEROL 3 ML NEB INHALATION SCH ×4 (08:52→20:16)
[2022-08-19] MEDS ORDERED: MORPHINE SULFATE ER 60 MG TABLET PO SCH (09:30)
[2022-08-19] MEDS ORDERED: MORPHINE SULFATE ER 15 MG TABLET PO SCH (10:00)
[2022-08-19 11:01] LABS: ALT 28 U/L (4-34); AST 55 U/L (14-36); African American GFR (CKD) >90 (>60 ml/min/1.73 sqM); Albumin 1.8 g/dL (3.5-5.0); Albumin/Globulin Ratio 0.8; Alkaline Phosphatase 564 U/L (38-126); Anion Gap 1 mmol/L; Blood Urea Nitrogen 8 mg/dL (7-17); Calcium 7.6 mg/dL (8.4-10.2); Carbon Dioxide 27 mmol/L (22-30); Chloride 109 mmol/L (98-107); Globulin 2.2 g/dL; Glucose 90 mg/dL (74-99); Non-African American GFR(CKD) >90 (>60 ml/min/1.73 sqM); Potassium 3.7 mmol/L (3.5-5.1); Sodium 137 mmol/L (137-145); Total Bilirubin 0.3 mg/dL (0.2-1.3)
[2022-08-19 11:32] LABS: Glucose,Whole Blood 99 mg/dL (70-110)
--- NOTE | 2022-08-19 12:25 | CT ---
EXAMINATION TYPE: CT brain wo con DATE OF EXAM: 08/19/2022 COMPARISON: 06/19/2013 HISTORY: Confusion, rule out acute intracranial process CT DLP: 1081.[address] of the brain was performed. The ventricles, basal cisterns and sulci overlying the cerebral convexities demonstrate mild enlargem ent. Postoperative encephalomalacia right temporal lobe. Craniotomy changes noted right temporal farshad on. There is no evidence for intracranial hemorrhage or sulcal effacement. There is decreased attenuation about the periventricular white matter and deep white matter of both c erebral hemispheres, compatible with chronic small vessel ischemia. Differential diagnosis does inclu de demyelination. No mass effects are seen.No midline shift. Osseous calvarium is intact. If symptoms persist consider MRI. IMPRESSION: 1. Age related atrophic and chronic small vessel ischemic change without acute intracranial process s een at this time. Postoperative encephalomalacia right temporal lobe.
[2022-08-19] MEDS: MAGNESIUM SULFATE-D5W PMX 1 GM in DEXTROSE/WATER 1 100ML.BAG IVPB SCH ×2 (12:28→13:37)
--- NOTE | 2022-08-19 13:10 | P.PN ---
Subjective Progress Note Date: 08/19/22 Principal diagnosis: Metastatic poorly differentiated adenocarcinoma of unknown primary -No acute events overnight -Noted to have acute metabolic encephalopathy this morning with occasional difficulty speaking along with new onset tremors of the hands -Mr. Lui notes she feels slightly more confused than usual Objective - Vital Signs Vital signs: Vital Signs Temp 98 F 08/19/22 11:30 Pulse 101 H 08/19/22 11:30 Resp 16 08/19/22 11:30 BP 90/58 08/19/22 11:30 Pulse Ox 97 08/19/22 11:30 FiO2 Intake & Output 08/18/22 08/19/22 08/19/22 18:59 06:59 18:59 Intake Total 1300 240 Balance 1300 240 Intake: Intake, IV Titration 1300 Amount Magnesium Sulfate-D5w Pmx 200 1 gm In Dextrose/Water 1 100ml.bag @ 100 mls/hr IVPB Q1H [facility] Rx#: [id number] Piperacillin-Tazobactam 3 100 .375 gm In Sodium Chloride 0.9% 100 ml @ 25 mls/hr IVPB Q8HR [facility] Rx# :[id number] Sodium Chloride 0.9% 1, 1000 000 ml @ 100 mls/hr IV . Q10H [facility] Rx#:[id number] Oral 240 Other: Voiding Method Bedside Commode # Voids 1 1 - Constitutional Constitutional Comment(s): Appears slightly more confused with bilateral tremors of the hands General appearance: Present: no acute distress - EENT Eyes: Present: EOMI - Respiratory Respiratory: left: other (Inspiratory crackles at the left lung base) - Gastrointestinal General gastrointestinal: Present: distended, hepatomegaly, normal bowel sounds - Integumentary Integumentary: Present: pale. Absent: rash - Neurologic Neurologic Comment(s): Bilateral tremors in the hand - Labs CBC & Chem 7: 08/17/22 06:26 08/19/22 10:26 Labs: Abnormal Lab Results - Last 24 Hours (Table) 08/19/22 Range/Units 10:26 Chloride 109 H (98-107) mmol/L Calcium 7.6 L (8.4-10.2) mg/dL AST 55 H (14-36) U/L Alkaline Phosphatase 564 H (38-126) U/L Total Protein 4.0 L (6.3-8.2) g/dL Albumin 1.8 L (3.5-5.0) g/dL Microbiology - Last 24 Hours (Table) 08/18/22 17:21 Sputum Culture - Preliminary Sputum 08/16/22 18:00 Blood Culture - Preliminary Blood No Growth after 48 hours 08/16/22 18:15 Blood Culture - Preliminary Blood No Growth after 48 hours Assessment and Plan Assessment: Ms. Lui is a 52-year-old woman with a past medical history significant for recently diagnosed metastatic adenocarcinoma of unclear primary who presents with increased dyspnea following EGD performed on 08/15/2022 with radiographic evidence concerning for pneumonia (1) Neutrophilic leukocytosis Current Visit: Yes Status: Acute Code(s): D72.9 - DISORDER OF WHITE BLOOD CELLS, UNSPECIFIED SNOMED Code(s): 026565082 (2) Normocytic anemia Current Visit: Yes Status: Acute Code(s): D64.9 - ANEMIA, UNSPECIFIED SNOMED Code(s): 134120066 (3) Cancer Current Visit: Yes Status: Acute Code(s): C80.1 - MALIGNANT (PRIMARY) NEOPLASM, UNSPECIFIED SNOMED Code(s): 329069098 (4) Pneumonia Current Visit: Yes Status: Acute Code(s): J18.9 - PNEUMONIA, UNSPECIFIED ORGANISM SNOMED Code(s): 199220945 (5) Acute metabolic encephalopathy Current Visit: Yes Status: Acute Code(s): G93.41 - METABOLIC ENCEPHALOPATHY SNOMED Code(s): 16360077 (6) Swelling of right upper extremity Current Visit: Yes Status: Acute Code(s): M79.89 - OTHER SPECIFIED SOFT TISSUE DISORDERS SNOMED Code(s): 806932598 Plan: #Metastatic poorly differentiated adenocarcinoma of unclear primary -Initial liver biopsy performed on 07/26/2022 revealed immunohistochemistry concerning for pancreaticobiliary GI origin -EGD with EUS performed on 08/15/2022 at [facility] revealed a 1.5 x 1.7 hypoechoic mass in the pancreatic body that was suspicious for malignancy -Pathology report from EGD biopsy is currently pending -Cancer type ID along with an NGS and PD-L1 testing is pending #Acute metabolic encephalopathy -Noted to have increased confusion this morning with bilateral tremors of the hands -Noted to have received a total of 16 mg of IV morphine over the past 24 hours for breakthrough pain -I suspect this is likely contributing to her acute metabolic encephalopathy -CMP from this morning with no acute changes compared to admission with down trending LFTs -Morphine 4 mg IV every 4 hours as needed was discontinued -Continue morphine extended release 30 mg every 12 hours -CT the head without contrast ordered to rule out acute intracranial process -Follow-up CBC results #Right arm swelling -Noted to have mild increase in swelling of the right arm compared to the left -We will obtain duplex of the right arm to rule out DVT #Healthcare acquired pneumonia -Presented with increased dyspnea and found to have a acute infiltrate in the left lower lobe suspicious for pneumonia on chest x-ray -Agree with broad-spectrum antibiotics as ordered per the primary team -Blood cultures to date are negative #Neutrophilic leukocytosis -Likely secondary to metastatic malignancy along with superimposed infection -Continue to monitor #Normocytic anemia -Likely secondary to inflammation from malignancy -Continue to monitor
--- NOTE | 2022-08-19 15:08 | US ---
EXAMINATION TYPE: US venous doppler duplex UE RT DATE OF EXAM: 08/19/2022 COMPARISON: NONE CLINICAL HISTORY: Right upper extremity swollen compared to the left. Edema SIDE PERFORMED: Right Right Arm: Thrombus visualized in the Cephalic Vein. IMPRESSION: There is no deep vein thrombosis. There is limited superficial thrombus in the cephalic vein.
[2022-08-19 17:10] LABS: Glucose,Whole Blood 95 mg/dL (70-110)
[2022-08-19 17:15] LABS: Basophils # (A) 0.04 X 10*3/uL (0.00-0.10); Basophils % (A) 0.2 %; Eosinophils # (A) 0.01 X 10*3/uL (0.04-0.35); Eosinophils % (A) 0.1 %; HGB 6.8 g/dL (12.0-15.0); Immature Grans, Automated 3.1 %; Lymphocytes # (A) 0.66 X 10*3/uL (0.90-5.00); Lymphocytes % (A) 3.8 %; MCH 29.3 pg (27.0-32.0); MCHC 29.6 g/dL (32.0-37.0); MCV 99.1 fL (80.0-97.0); Mean Platelet Volume 9.9 fL (9.5-12.2); Monocytes # (A) 0.55 X 10*3/uL (0.20-1.00); Monocytes % (A) 3.1 %; NRBC Per 100 WBC 0 /100 WBCS (0.0-0.0); Neutrophils # (A) 15.76 X 10*3/uL (1.80-7.70); Neutrophils % (A) 89.7 %; Platelet Count 369 X 10*3/uL (140-440); RBC 2.32 X 10*6/uL (4.10-5.20); RDW 15.3 % (11.5-14.5); WBC 17.57 X 10*3/uL (4.50-10.00)
--- NOTE | 2022-08-19 18:41 | P.PN ---
Subjective Progress Note Date: 08/18/22 Principal diagnosis: GENERAL: Cachexic ,Sitting up in bed, no acute distress HEENT: Normocephalic/atraumatic, PERRLA,conjunctiva pink, sclera white. Oral mucosa dry NECK: Supple, no JVD, no thyroid enlargement LUNGS: Equal air entry with few scattered rhonchi, diminished breath sounds CVS: Regular rate and rhythm, normal S1 and S2, tachycardia no gallops, no murmurs, no rubs ABDOMEN: Firm, distended, mid epigastric, left lower quadrant tenderness, hepatosplenomegaly,no guarding or rigidity, positive bowel sounds. EXTREMITIES: No clubbing, no edema, no cyanosis, + pulses and upper and lower extremities. SKIN: Warm and dry, No rashes NERVOUS SYSTEM: Cranial nerve II through XII grossly intact, no focal deficits, strength and sensation grossly intact. PSYCHIATRIC: Alert and oriented -3. Mood and affect normal. 52-year-old female past medical history of advanced COPD, nicotine dependence, marijuana use , gastroesophageal reflux disease , metastatic adenocarcinoma ca ncer-etiology unclear, currently being worked up, and multiple other medical issues presented to the ER with complaints of worsening dyspnea 1-2 days, ongoing poor intake, nausea ,vomiting, abdominal pain times days. Reports she was recently at [facility] 1-2 days ago for EGD/EUS with biopsy. No treatment started yet, last at oncology approximately 2 weeks ago. Denies dysuria. Reports regular bowel movements with last bowel movement yesterday. Denies any hemoptysis, rectal bleeding. Denies any chest pain, palpitations. Denies any syncope. Denies any fever, chills, reports nonproductive cough. Chest x-ray reporting new left mid lower lobe peripheral acute infiltrate, persistent anterior left midlung 4.0 cm mass worrisome for neoplasm. Afebrile, WBC 20.2, hemoglobin 9.8, platelets 386, neutrophils 94, INR 1.3, sodium 133, potassium 4.1, bicarb 32. Glucose 49, POC glucose 103. Lactic acid 1.4 ,Renal function stable,T bili 0.6, AST 122, ALT 55, alk phos 1247. BNP 1140. Carroll virus, influenza A and B PCR's negative. Received IV fluid bolus, IV fluid hydration, IV antibiotics of Zosyn and azithromycin, antiemetics and pain management initiated. Blood cultures obtained. Objective - Vital Signs Vital signs: Vital Signs Temp 97.7 F 08/18/22 11:16 Pulse 96 08/18/22 11:43 Resp 16 08/18/22 11:16 BP 89/62 08/18/22 11:16 Pulse Ox 96 08/18/22 11:16 FiO2 Intake & Output 08/17/22 08/18/22 08/18/22 18:59 06:59 18:59 Intake Total 240 Balance 240 Intake: Oral 240 Other: Voiding Method Bedside Commode # Voids 2 1 - Labs CBC & Chem 7: 08/19/22 10:26 08/19/22 10:26 Labs: Microbiology - Last 24 Hours (Table) 08/16/22 18:15 Blood Culture - Preliminary Blood No Growth after 24 hours 08/16/22 18:00 Blood Culture - Preliminary Blood No Growth after 24 hours Assessment and Plan Assessment: Acute left mid, lower lung pneumonia, healthcare acquired. Recently at [place] for her what appears to be EGD with EUS, in a patient with metastatic adenocarcinoma ,unclear primary-workup in progress. Multiple enlarged liver masses reported on CT of 07/31/2022, consistent with metastatic disease, chest x-rays reporting possible anterior mediastinal mass, left midlung 4.0 cm mass. Oncology following Acute on chronic hypoxic respiratory failure, secondary to the above, wears 3 L nasal cannula O2 at home Leukocytosis secondary to the above Anemia, secondary to malignancy COPD, advanced Hypertension Hyperlipidemia Osteoarthritis History of PE Chronic back and neck pain Depression Moderate protein calorie malnutrition, BMI 19.3 Failure to thrive, poor diet intake times weeks Plan: Continue on current medication regime ,monitoring and symptomatic treatment. Current Labs pending. IV fluid hydration, IV antibiotics. Cultures in progress. PPI for GI prophylaxis. Maintain on anti-emetics with Reglan added to regimen. Aggressive pulmonary toileting with nebulized bronchodilators. Obtaining [place] records from recent testing performed,oncology consult in place, recommendations pending. Prognosis guarded given multiple complex medical issues.
--- NOTE | 2022-08-19 18:52 | P.PN ---
Subjective Progress Note Date: 08/19/22 Principal diagnosis: Left mid and lower lobe pneumonia Acute on chronic hypoxic respiratory failure Altered mental status; likely related to narcotic use 52-year-old female past medical history of advanced COPD, nicotine dependence, marijuana use , gastroesophageal reflux disease , metastatic adenocarcinoma cancer-etiology unclear, currently being worked up, and multiple other medical issues presented to the ER with complaints of worsening dyspnea 1-2 days, ongoing poor intake, nausea ,vomiting, abdominal pain times days. Reports she was recently at [facility] 1-2 days ago for EGD/EUS with biopsy. No treatment started yet, last at oncology approximately 2 weeks ago. Denies dysuria. Reports regular bowel movements with last bowel movement yesterday. Denies any hemoptysis, rectal bleeding. Denies any chest pain, palpitations. Denies any syncope. Denies any fever, chills, reports nonproductive cough. Chest x-ray reporting new left mid lower lobe peripheral acute infiltrate, persistent anterior left midlung 4.0 cm mass worrisome for neoplasm. Afebrile, WBC 20.2, hemoglobin 9.8, platelets 386, neutrophils 94, INR 1.3, sodium 133, potassium 4.1, bicarb 32. Glucose 49, POC glucose 103. Lactic acid 1.4 ,Renal function stable,T bili 0.6, AST 122, ALT 55, alk phos 1247. BNP 1140. Carroll virus, influenza A and B PCR's negative. Received IV fluid bolus, IV fluid hydration, IV antibiotics of Zosyn and azithromycin, antiemetics and pain management initiated. Blood cultures obtained. 08/19/2022 Patient is seen and evaluated with nursing staff at bedside; currently awake alert and oriented; according to RN patient had an episode of altered mental status and confusion and to is having difficulty speaking with some tremors in the hands; CT of the head is completed and is unremarkable; changes mental status likely related to narcotic overuse; patient is currently on morphine 4 mg IV every 4 hours along with extended release morphine 30 mg every 12 hours; dose of morphine is reduced; patient is comfortable on oral home regimen Remains on broad-spectrum IV antibiotics for healthcare associated pneumonia Objective - Vital Signs Vital signs: Vital Signs Temp 98 F 08/19/22 11:30 Pulse 101 H 08/19/22 16:14 Resp 16 08/19/22 11:30 BP 96/65 08/19/22 16:14 Pulse Ox 97 08/19/22 11:30 FiO2 Intake & Output 08/18/22 08/19/22 08/19/22 18:59 06:59 18:59 Intake Total 1300 240 Balance 1300 240 Intake: Intake, IV Titration 1300 Amount Magnesium Sulfate-D5w Pmx 200 1 gm In Dextrose/Water 1 100ml.bag @ 100 mls/hr IVPB Q1H [facility] Rx#: [id number] Piperacillin-Tazobactam 3 100 .375 gm In Sodium Chloride 0.9% 100 ml @ 25 mls/hr IVPB Q8HR [facility] Rx# :[id number] Sodium Chloride 0.9% 1, 1000 000 ml @ 100 mls/hr IV . Q10H [facility] Rx#:[id number] Oral 240 Other: Voiding Method Bedside Commode # Voids 1 1 - Exam HEENT: Normocephalic/atraumatic, PERRLA,conjunctiva pink, sclera white. Oral mucosa dry NECK: Supple, no JVD, no thyroid enlargement LUNGS: Equal air entry with few scattered rhonchi, diminished breath sounds CVS: Regular rate and rhythm, normal S1 and S2, tachycardia no gallops, no murmurs, no rubs ABDOMEN: Firm, distended, mid epigastric, left lower quadrant tenderness, hepatosplenomegaly,no guarding or rigidity, positive bowel sounds. EXTREMITIES: No clubbing, no edema, no cyanosis, + pulses and upper and lower extremities. SKIN: Warm and dry, No rashes NERVOUS SYSTEM: Cranial nerve II through XII grossly intact, no focal deficits, strength and sensation grossly intact. PSYCHIATRIC: Alert and oriented -3. Mood and affect normal. - Labs CBC & Chem 7: 08/19/22 10:26 08/19/22 10:26 Labs: Abnormal Lab Results - Last 24 Hours (Table) 08/19/22 Range/Units 10:26 Chloride 109 H (98-107) mmol/L Calcium 7.6 L (8.4-10.2) mg/dL AST 55 H (14-36) U/L Alkaline Phosphatase 564 H (38-126) U/L Total Protein 4.0 L (6.3-8.2) g/dL Albumin 1.8 L (3.5-5.0) g/dL Microbiology - Last 24 Hours (Table) 08/18/22 17:21 Gram Stain - Preliminary Sputum Sputum Culture - Preliminary Gram Neg Bacilli 08/16/22 18:00 Blood Culture - Preliminary Blood No Growth after 48 hours 08/16/22 18:15 Blood Culture - Preliminary Blood No Growth after 48 hours Assessment and Plan Assessment: Acute left mid, lower lung pneumonia, healthcare acquired. Recently at [place] for her what appears to be EGD with EUS, in a patient with metastatic adenocarcinoma ,unclear primary-workup in progress. Multiple enlarged liver masses reported on CT of 07/31/2022, consistent with metastatic disease, chest x-rays reporting possible anterior mediastinal mass, left midlung 4.0 cm mass. Oncology following Acute on chronic hypoxic respiratory failure, secondary to the above, wears 3 L nasal cannula O2 at home Leukocytosis secondary to the above Anemia, secondary to malignancy COPD, advanced Hypertension Hyperlipidemia Osteoarthritis History of PE Chronic back and neck pain Depression Moderate protein calorie malnutrition, BMI 19.3 Failure to thrive, poor diet intake times weeks Plan: Continue on current medication regime ,monitoring and symptomatic treatment. Current Labs pending. IV fluid hydration, IV antibiotics. Cultures in progress. PPI for GI prophylaxis. Maintain on anti-emetics with Reglan added to regimen. Aggressive pulmonary toileting with nebulized bronchodilators. Obtaining [place] records from recent testing performed,oncology consult in place, recommendations pending. Prognosis guarded given multiple complex medical issues.
[2022-08-19 20:21] LABS: Glucose,Whole Blood 63 mg/dL (70-110)
[2022-08-19] MEDS: DESVENLAFAXINE SUCCINATE 50 MG TAB.ER.24H PO SCH (20:34)
[2022-08-19] MEDS: traZODone HCL 100 MG TAB PO SCH (20:35)
[2022-08-19] MEDS: NON FORMULARY DRUG (Cariprazine Hcl [Vraylar] 3 MG Capsule) PO SCH (20:40)
[2022-08-19 21:08] LABS: Glucose,Whole Blood 59 mg/dL (70-110)
[2022-08-19 21:46] LABS: Glucose,Whole Blood 86 mg/dL (70-110)
[2022-08-19 22:22] LABS: Glucose,Whole Blood 68 mg/dL (70-110)
[2022-08-19 22:59] LABS: Glucose,Whole Blood 72 mg/dL (70-110)
[2022-08-20 00:20] LABS: Glucose,Whole Blood 111 mg/dL (70-110)
[2022-08-20] MEDS: MORPHINE SULFATE ER 30 MG TABLET PO SCH ×4 (00:20→22:15)
[2022-08-20] MEDS: PIPERACILLIN-TAZOBACTAM 3.375 GM in SODIUM CHLORIDE 0.9% 100 ML IVPB SCH ×3 (00:21→15:39)
[2022-08-20] MEDS: HEPARIN SODIUM,PORCINE/PF 5,000 UNIT/0.5 ML SYRINGE SQ SCH ×3 (00:21→15:39)
[2022-08-20] MEDS: SODIUM CHLORIDE 0.9% 1,000 ML IV SCH ×2 (01:43→13:26)
[2022-08-20 04:14] LABS: Glucose,Whole Blood 84 mg/dL (70-110)
[2022-08-20 05:57] LABS: Glucose,Whole Blood 84 mg/dL (70-110)
[2022-08-20 07:37] LABS: Glucose,Whole Blood 75 mg/dL (70-110)
[2022-08-20 07:39] LABS: ALT 25 U/L (4-34); AST 47 U/L (14-36); African American GFR (CKD) >90 (>60 ml/min/1.73 sqM); Albumin 1.8 g/dL (3.5-5.0); Albumin/Globulin Ratio 0.9; Alkaline Phosphatase 495 U/L (38-126); Anion Gap -1 mmol/L; Blood Urea Nitrogen 7 mg/dL (7-17); Calcium 7.8 mg/dL (8.4-10.2); Carbon Dioxide 27 mmol/L (22-30); Chloride 111 mmol/L (98-107); Globulin 2.1 g/dL; Glucose 74 mg/dL (74-99); Magnesium 1.9 mg/dL (1.6-2.3); Non-African American GFR(CKD) >90 (>60 ml/min/1.73 sqM); Potassium 3.8 mmol/L (3.5-5.1); Sodium 137 mmol/L (137-145); Total Bilirubin 0.4 mg/dL (0.2-1.3); Total Protein 3.9 g/dL (6.3-8.2)
[2022-08-20] MEDS: SYMBICORT 160-4.5 MCG INHALER INHALATION SCH ×2 (07:41→19:56)
[2022-08-20] MEDS: IPRATROPIUM-ALBUTEROL 3 ML NEB INHALATION SCH ×4 (07:41→19:56)
[2022-08-20] MEDS: GABAPENTIN 300 MG CAP PO SCH ×3 (09:08→21:29)
[2022-08-20] MEDS: NYSTATIN 100,000 UNIT/ML SUSP 500,000 UNIT/5 ML CUP PO SCH ×4 (09:08→21:30)
[2022-08-20] MEDS: PANTOPRAZOLE 40 MG TABLET PO SCH (09:08)
[2022-08-20] MEDS: FLUCONAZOLE 100 MG TAB PO SCH (09:09)
[2022-08-20] MEDS: polyethylene glycoL 3350 17 GM POWD.PACK PO SCH (09:09)
[2022-08-20] MEDS: OXYBUTYNIN CHLORIDE 5 MG TAB PO SCH ×2 (09:09→21:30)
[2022-08-20] MEDS: FAMOTIDINE 20 MG TAB PO SCH ×2 (09:09→21:28)
[2022-08-20] MEDS: predniSONE 20 MG TAB PO SCH (09:09)
[2022-08-20] MEDS: SENNOSIDES-DOCUSATE SODIUM 1 EACH TAB PO SCH (09:11)
[2022-08-20 10:18] LABS: Basophils # (A) 0.09 X 10*3/uL (0.00-0.10); Basophils % (A) 0.5 %; Eosinophils # (A) 0.03 X 10*3/uL (0.04-0.35); Eosinophils % (A) 0.2 %; HCT 26.9 % (37.2-46.3); HGB 8.2 g/dL (12.0-15.0); Immature Grans, Automated 4.8 %; Lymphocytes # (A) 0.73 X 10*3/uL (0.90-5.00); Lymphocytes % (A) 4.4 %; MCH 29.7 pg (27.0-32.0); MCHC 30.5 g/dL (32.0-37.0); MCV 97.5 fL (80.0-97.0); Mean Platelet Volume 9.7 fL (9.5-12.2); Monocytes # (A) 0.58 X 10*3/uL (0.20-1.00); Monocytes % (A) 3.5 %; NRBC Per 100 WBC 0 /100 WBCS (0.0-0.0); Neutrophils # (A) 14.38 X 10*3/uL (1.80-7.70); Neutrophils % (A) 86.6 %; Platelet Count 396 X 10*3/uL (140-440); RBC 2.76 X 10*6/uL (4.10-5.20); RDW 15.9 % (11.5-14.5)
--- NOTE | 2022-08-20 12:28 | XR ---
EXAMINATION TYPE: XR KUB DATE OF EXAM: 08/20/2022 Comparison: None Clinical History: 52-year-old female abdominal distension Findings: Cholecystectomy clips. Increased generalized density of the abdomen. Mass effect displacing the stoma ch inferiorly and to the left. No dilated small bowel. Scattered colonic air extending distally to th e rectum. No suspicious calcifications are seen. Focal left midlung opacity partially visualized. The re appears to be some improvement in aeration compared to 08/17/2022. Supine imaging limited for asse ssment of free intraperitoneal air. IMPRESSION: Known very large hepatic masses. This results in increased abdominal radiographic density. There is m ass effect displacing the stomach inferiorly. Nonobstructive bowel gas pattern.
[2022-08-20 12:50] LABS: Glucose,Whole Blood 76 mg/dL (70-110)
--- NOTE | 2022-08-20 14:47 | P.PN ---
Subjective Progress Note Date: 08/20/22 The patient is a 52-year-old female with past medical history remarkable for stage IV lung cancer with metastasis to the liver. She presented emergency department on 08/16/22 with complaints of a sore throat since after having an EGD performed at [facility]. She also has a history COPD and is on 3 L NC at home. She denies any constipation or worsening of her chronic abdominal pain. Denies any nausea or vomiting. Denies any chest pain. Denies any cough. 08/17 The patient is resting in bed. She is A&O x 3 but has trouble finding some of her words. She states that she had severe pain in her stomach and throat and shortness of breath after her EGD and EUS at [facility] yesterday. She states she has just been diagnosed with liver and lung cancer in June. She is still in shock. She states that just lost her mother to cancer in January. Emotional support provided. Dr. Rincon was at the bedside. He told her that there was a mass in the pancreas that looked suspicious yesterday that was biopsied at [facility]. The patient stated that she is waiting for test results to see what her treatment plan will entail. She is tired of being in pain. Her goal is prolonged survival and is interested in treatment if it will give her even a couple extra months to live. Objective - Vital Signs Vital signs: Vital Signs Temp 98.7 F 08/20/22 11:32 Pulse 127 H 08/20/22 11:39 Resp 22 08/20/22 11:32 BP 122/87 08/20/22 11:32 Pulse Ox 90 L 08/20/22 11:32 FiO2 Intake & Output 08/19/22 08/20/22 08/20/22 18:59 06:59 18:59 Intake Total 2710 Balance 2710 Intake: Intake, IV Titration 2400 Amount Magnesium Sulfate-D5w Pmx 200 1 gm In Dextrose/Water 1 100ml.bag @ 100 mls/hr IVPB Q1H [facility] Rx#: [id number] Piperacillin-Tazobactam 3 200 .375 gm In Sodium Chloride 0.9% 100 ml @ 25 mls/hr IVPB Q8HR [facility] Rx# :[id number] Sodium Chloride 0.9% 1, 2000 000 ml @ 100 mls/hr IV . Q10H [facility] Rx#:[id number] Blood Product 310 Rc As-1 Unit 310 [id number] Other: Voiding Method Bedside Commode # Voids 1 1 - Exam General: Well developed. Mild distress. Chronically ill appearing HEENT: Head is atraumatic, normocephalic. Mucus membranes dry. CV: Tachycardic. S1 and S2. Peripheral pulses equal. 2/4 Lungs: Scattered rhonchi throughout. Respirations labored. 2L NC Abdomen/GI: Distended and firm, + abdominal tenderness. Musculoskeletal/ Extremities: GARZA. No gross atrophy. + generalized weakness Vascular: Radial pulses equal. 2/4. + upper extremity edema R>L. Trace LE edema. Skin: Warm and dry Neurologic: Awake, alert and oriented times 3. Confused at times. Bilataeral hand tremor. Psychiatric: Flat affect. - Labs CBC & Chem 7: 08/20/22 06:25 08/20/22 06:25 Labs: Abnormal Lab Results - Last 24 Hours (Table) 08/19/22 08/19/22 08/19/22 Range/Units 10:26 18:00 20:20 WBC 17.57 H (4.50-10.00) X 10*3/uL RBC 2.32 L (4.10-5.20) X 10*6/uL Hgb 6.8 L* (12.0-15.0) g/dL Hct 23.0 L (37.2-46.3) % MCV 99.1 H (80.0-97.0) fL MCHC 29.6 L (32.0-37.0) g/dL RDW 15.3 H (11.5-14.5) % Immature Gran # 0.55 H (0.00-0.04) X 10*3/uL Neutrophils # 15.76 H (1.80-7.70) X 10*3/uL Lymphocytes # 0.66 L (0.90-5.00) X 10*3/uL Eosinophils # 0.01 L (0.04-0.35) X 10*3/uL Chloride (98-107) mmol/L POC Glucose (mg/dL) 63 L (70-110) mg/dL Calcium (8.4-10.2) mg/dL AST (14-36) U/L Alkaline Phosphatase (38-126) U/L Total Protein (6.3-8.2) g/dL Albumin (3.5-5.0) g/dL Crossmatch See Detail 08/19/22 08/19/22 08/20/22 Range/Units 21:05 22:20 00:19 WBC (4.50-10.00) X 10*3/uL RBC (4.10-5.20) X 10*6/uL Hgb (12.0-15.0) g/dL Hct (37.2-46.3) % MCV (80.0-97.0) fL MCHC (32.0-37.0) g/dL RDW (11.5-14.5) % Immature Gran # (0.00-0.04) X 10*3/uL Neutrophils # (1.80-7.70) X 10*3/uL Lymphocytes # (0.90-5.00) X 10*3/uL Eosinophils # (0.04-0.35) X 10*3/uL Chloride (98-107) mmol/L POC Glucose (mg/dL) 59 L 68 L 111 H (70-110) mg/dL Calcium (8.4-10.2) mg/dL AST (14-36) U/L Alkaline Phosphatase (38-126) U/L Total Protein (6.3-8.2) g/dL Albumin (3.5-5.0) g/dL Crossmatch 08/20/22 08/20/22 Range/Units 06:25 06:25 WBC 16.60 H (4.50-10.00) X 10*3/uL RBC 2.76 L (4.10-5.20) X 10*6/uL Hgb 8.2 L (12.0-15.0) g/dL Hct 26.9 L (37.2-46.3) % MCV 97.5 H (80.0-97.0) fL MCHC 30.5 L (32.0-37.0) g/dL RDW 15.9 H (11.5-14.5) % Immature Gran # 0.79 H (0.00-0.04) X 10*3/uL Neutrophils # 14.38 H (1.80-7.70) X 10*3/uL Lymphocytes # 0.73 L (0.90-5.00) X 10*3/uL Eosinophils # 0.03 L (0.04-0.35) X 10*3/uL Chloride 111 H (98-107) mmol/L POC Glucose (mg/dL) (70-110) mg/dL Calcium 7.8 L (8.4-10.2) mg/dL AST 47 H (14-36) U/L Alkaline Phosphatase 495 H (38-126) U/L Total Protein 3.9 L (6.3-8.2) g/dL Albumin 1.8 L (3.5-5.0) g/dL Crossmatch Microbiology - Last 24 Hours (Table) 08/18/22 17:21 Gram Stain - Final Sputum Sputum Culture - Final Pseudomonas aeruginosa 08/16/22 18:15 Blood Culture - Preliminary Blood No Growth after 72 hours 08/16/22 18:00 Blood Culture - Preliminary Blood No Growth after 72 hours Assessment and Plan Assessment: Symptoms * Pain - 10 abdominal pain, Continue, Robaxin, and Neurotin. Added MsContin, * Fatigue - decreased energy * SOB - + sob at rest, worsens with activity. Continue Duoneb, Symbicort, Zosyn, Prednisone * Insomnia - Yes, continue Trazodone * N/V - Yes, intermittent. Continue Zofran, Reglan, and Compazine * Anxiety - Yes, continue Ativan * Depression - Yes, continue Pristiq, and Vraylar * Confusion - Yes, new onset * Agitation - No * Hallucinations - Yes, new onset * Appetite/weight loss - No recent weight loss, + decreased appetite * Dysphagia - No, on a heart healthy diet * Constipation - No, continue Miralax, and Senokot-S * Incontinence - Occasional, continue Ditropan * Itch - No * Cough - No * Thrush - Yes, continue Nystatin swish and swallow Plan: Summary/Goals - The patient can answer all questions correctly. However at other times she is not following the conversation. The RN reports the patient is also hallucinating. She is aware that she is confused. The patient has head a Head CT wich only revealed age related changes, no acute process. Her abdomen appears slightly more distended and firm today. Her LBM was [employer]. Her confusion is thought to be caused by her pain medication. She is still on her long acting morphine, but the short acting IV pushes have been discontinued since yesterday. The oncology team was also at the bedside. They have asked for a family meeting tomorrow at 0930. RN aware. Registration Scheduling Specialist called the patient's sister, Tammi, who stated she would call the patient's children and significant other to let them know. Advanced Directives - None on file Code Status - Full code Thank you for this consultation Ella Knutson [facility]- Palliative Care Spectralink [id number] Email: [email or web address] Time with Patient: Greater than 30
--- NOTE | 2022-08-20 15:50 | P.PN ---
Subjective Progress Note Date: 08/20/22 H&P Date: 08/17/22 Chief Complaint: Worsening shortness of breath, abdominal pain This is a 52-year-old female past medical history of advanced COPD, nicotine dependence, marijuana use , gastroesophageal reflux disease , metastatic adenocarcinoma cancer-etiology unclear, currently being worked up, and multiple other medical issues presented to the ER with complaints of worsening dyspnea 1-2 days, ongoing poor intake, nausea ,vomiting, abdominal pain times days. Reports she was recently at [facility] 1-2 days ago for EGD/EUS with biopsy. No treatment started yet, last at oncology approximately 2 weeks ago. Denies dysuria. Reports regular bowel movements with last bowel movement yesterday. Denies any hemoptysis, rectal bleeding. Denies any chest pain, palpitations. Denies any syncope. Denies any fever, chills, reports nonproductive cough. Chest x-ray reporting new left mid lower lobe peripheral acute infiltrate, persistent anterior left midlung 4.0 cm mass worrisome for neoplasm. Afebrile, WBC 20.2, hemoglobin 9.8, platelets 386, neutrophils 94, INR 1.3, sodium 133, potassium 4.1, bicarb 32. Glucose 49, POC glucose 103. Lactic acid 1.4 ,Renal function stable,T bili 0.6, AST 122, ALT 55, alk phos 1247. BNP 1140. Carroll virus, influenza A and B PCR's negative. Received IV fluid bolus, IV fluid hydration, IV antibiotics of Zosyn and azithromycin, antiemetics and pain management initiated. Blood cultures obtained. 08/20/2022 no acute overnight events. Continues to have uncontrolled abdominal pain, malaise, weakness. KUB ordered. Hallucinating this morning, "seeing her uzmaren in the room", in a patient on high doses of morphine. Patient had a palliative/hospice informational meeting and wishes to pursue treatment at this time. Maintaining O2 sats in the 90s, on 3 L nasal cannula. Objective - Vital Signs Vital signs: Vital Signs Temp 98.7 F 08/20/22 11:32 Pulse 127 H 08/20/22 11:39 Resp 22 08/20/22 11:32 BP 122/87 08/20/22 11:32 Pulse Ox 90 L 08/20/22 11:32 FiO2 Intake & Output 08/19/22 08/20/22 08/20/22 18:59 06:59 18:59 Intake Total 2710 Balance 2710 Intake: Intake, IV Titration 2400 Amount Magnesium Sulfate-D5w Pmx 200 1 gm In Dextrose/Water 1 100ml.bag @ 100 mls/hr IVPB Q1H [facility] Rx#: [id number] Piperacillin-Tazobactam 3 200 .375 gm In Sodium Chloride 0.9% 100 ml @ 25 mls/hr IVPB Q8HR [facility] Rx# :[id number] Sodium Chloride 0.9% 1, 2000 000 ml @ 100 mls/hr IV . Q10H ADILENE Rx#:[id number] Blood Product 310 Rc As-1 Unit 310 [id number] Other: Voiding Method Bedside Commode # Voids 1 1 - Exam GENERAL: Cachexic ,Sitting up in bed, no acute distress, fluctuating mild hallucinations. HEENT: Normocephalic/atraumatic, PERRLA,conjunctiva pink, sclera white. Oral mucosa dry NECK: Supple, no JVD, no thyroid enlargement LUNGS: Equal air entry with few scattered rhonchi, diminished breath sounds CVS: Regular rate and rhythm, normal S1 and S2, tachycardia no gallops, no murmurs, no rubs ABDOMEN: Increased firmness, more distended, mid epigastric, left lower quadrant tenderness, hepatosplenomegaly,no guarding or rigidity, positive bowel sounds. EXTREMITIES: Right upper extremity edema greater than the left, no cyanosis, + pulses and upper and lower extremities. SKIN: Warm and dry, No rashes NERVOUS SYSTEM: Cranial nerve II through XII grossly intact, no focal deficits, strength and sensation grossly intact. PSYCHIATRIC: Alert and oriented -3, with mild hallucinations. Flat affect - Labs CBC & Chem 7: 08/20/22 06:25 08/20/22 06:25 Labs: Abnormal Lab Results - Last 24 Hours (Table) 08/19/22 08/19/22 08/19/22 Range/Units 10:26 18:00 20:20 WBC 17.57 H (4.50-10.00) X 10*3/uL RBC 2.32 L (4.10-5.20) X 10*6/uL Hgb 6.8 L* (12.0-15.0) g/dL Hct 23.0 L (37.2-46.3) % MCV 99.1 H (80.0-97.0) fL MCHC 29.6 L (32.0-37.0) g/dL RDW 15.3 H (11.5-14.5) % Immature Gran # 0.55 H (0.00-0.04) X 10*3/uL Neutrophils # 15.76 H (1.80-7.70) X 10*3/uL Lymphocytes # 0.66 L (0.90-5.00) X 10*3/uL Eosinophils # 0.01 L (0.04-0.35) X 10*3/uL Chloride (98-107) mmol/L POC Glucose (mg/dL) 63 L (70-110) mg/dL Calcium (8.4-10.2) mg/dL AST (14-36) U/L Alkaline Phosphatase (38-126) U/L Total Protein (6.3-8.2) g/dL Albumin (3.5-5.0) g/dL Crossmatch See Detail 08/19/22 08/19/22 08/20/22 Range/Units 21:05 22:20 00:19 WBC (4.50-10.00) X 10*3/uL RBC (4.10-5.20) X 10*6/uL Hgb (12.0-15.0) g/dL Hct (37.2-46.3) % MCV (80.0-97.0) fL MCHC (32.0-37.0) g/dL RDW (11.5-14.5) % Immature Gran # (0.00-0.04) X 10*3/uL Neutrophils # (1.80-7.70) X 10*3/uL Lymphocytes # (0.90-5.00) X 10*3/uL Eosinophils # (0.04-0.35) X 10*3/uL Chloride (98-107) mmol/L POC Glucose (mg/dL) 59 L 68 L 111 H (70-110) mg/dL Calcium (8.4-10.2) mg/dL AST (14-36) U/L Alkaline Phosphatase (38-126) U/L Total Protein (6.3-8.2) g/dL Albumin (3.5-5.0) g/dL Crossmatch 08/20/22 08/20/22 Range/Units 06:25 06:25 WBC 16.60 H (4.50-10.00) X 10*3/uL RBC 2.76 L (4.10-5.20) X 10*6/uL Hgb 8.2 L (12.0-15.0) g/dL Hct 26.9 L (37.2-46.3) % MCV 97.5 H (80.0-97.0) fL MCHC 30.5 L (32.0-37.0) g/dL RDW 15.9 H (11.5-14.5) % Immature Gran # 0.79 H (0.00-0.04) X 10*3/uL Neutrophils # 14.38 H (1.80-7.70) X 10*3/uL Lymphocytes # 0.73 L (0.90-5.00) X 10*3/uL Eosinophils # 0.03 L (0.04-0.35) X 10*3/uL Chloride 111 H (98-107) mmol/L POC Glucose (mg/dL) (70-110) mg/dL Calcium 7.8 L (8.4-10.2) mg/dL AST 47 H (14-36) U/L Alkaline Phosphatase 495 H (38-126) U/L Total Protein 3.9 L (6.3-8.2) g/dL Albumin 1.8 L (3.5-5.0) g/dL Crossmatch Microbiology - Last 24 Hours (Table) 08/18/22 17:21 Gram Stain - Final Sputum Sputum Culture - Final Pseudomonas aeruginosa 08/16/22 18:15 Blood Culture - Preliminary Blood No Growth after 72 hours 08/16/22 18:00 Blood Culture - Preliminary Blood No Growth after 72 hours Assessment and Plan Assessment: Acute left mid, lower lung pneumonia, healthcare acquired. Recently at [place] for EGD with EUS with biopsies-reporting suspicious pancreatic mass ,pathology pending, in a patient with metastatic adenocarcinoma ,unclear primary-workup in progress. Multiple enlarged liver masses reported on CT of 07/31/2022, consistent with metastatic disease, chest x-rays reporting possible anterior mediastinal mass, left midlung 4.0 cm mass. Oncology following Acute on chronic hypoxic respiratory failure, secondary to the above, wears 3 L nasal cannula O2 at home Leukocytosis secondary to the above Anemia, secondary to malignancy COPD, advanced Hypertension Hyperlipidemia Osteoarthritis History of PE Chronic back and neck pain Depression Moderate protein calorie malnutrition, BMI 19.3 Failure to thrive, poor diet intake times weeks Acute metabolic encephalopathy, suspect medication induced, brain CT reported no acute intracranial process, pain management adjusted Right arm swelling ,Venous Doppler reporting no DVT, limited superficial cephalic vein thrombus. Plan: Continue on current medication regime ,monitoring and symptomatic treatment. ammonia level,KUB pending.Per Oncology, EGD with EUS performed at [facility] on 08/15/2022 reporting suspicious mass in the pancreas- Pathology pending. Patient requesting treatment over palliative/hospice care at this time. Oncology requesting family meeting tomorrow at: 9:30. Prognosis gua rded given multiple complex medical issues. maintain supportive care. The impression and plan of care has been dictated as directed. : I performed a history and examination of this patient, discussed the same with the dictator. I agree with the dictator's note ,documented as a scribe. Any additional findings or plans will be noted.
[2022-08-20 17:22] LABS: Glucose,Whole Blood 70 mg/dL (70-110)
[2022-08-20 20:16] LABS: Glucose,Whole Blood 60 mg/dL (70-110)
[2022-08-20 20:42] LABS: Glucose,Whole Blood 63 mg/dL (70-110)
[2022-08-20] MEDS ORDERED: DEXTROSE 50% SYRINGE 50 ML IVP ONE (20:44)
[2022-08-20 21:20] LABS: Glucose,Whole Blood 101 mg/dL (70-110)
[2022-08-20] MEDS: DESVENLAFAXINE SUCCINATE 50 MG TAB.ER.24H PO SCH (21:29)
[2022-08-20] MEDS: traZODone HCL 100 MG TAB PO SCH (21:29)
[2022-08-20] MEDS: NON FORMULARY DRUG (Cariprazine Hcl [Vraylar] 3 MG Capsule) PO SCH (21:33)
[2022-08-20] MEDS ORDERED: oxyCODONE-APAP 7.5-325MG 1 EACH TAB PO PRN (21:44)
--- NOTE | 2022-08-20 21:48 | P.PN ---
Subjective Progress Note Date: 08/20/22 Principal diagnosis: failure to thrive, pending path form EUS and Bx In f/u today pt remains confused at times, but, this is better then yesterday. Pt pain is 7/10, she has not been on any of her pain meds since admit. She has a congested cough, abd is distended and tender Objective - Vital Signs Vital signs: Vital Signs Temp 98.7 F 08/20/22 05:53 Pulse 90 08/20/22 07:53 Resp 14 08/20/22 05:53 BP 94/67 08/20/22 05:53 Pulse Ox 100 08/20/22 05:53 FiO2 Intake & Output 08/19/22 08/20/22 08/20/22 18:59 06:59 18:59 Intake Total 2710 Balance 2710 Intake: Intake, IV Titration 2400 Amount Magnesium Sulfate-D5w Pmx 200 1 gm In Dextrose/Water 1 100ml.bag @ 100 mls/hr IVPB Q1H [facility] Rx#: [id number] Piperacillin-Tazobactam 3 200 .375 gm In Sodium Chloride 0.9% 100 ml @ 25 mls/hr IVPB Q8HR [facility] Rx# :[id number] Sodium Chloride 0.9% 1, 2000 000 ml @ 100 mls/hr IV . Q10H [facility] Rx#:[id number] Blood Product 310 Rc As-1 Unit 310 [id number] Other: Voiding Method Bedside Commode # Voids 1 1 - Constitutional General appearance: Present: cooperative, no acute distress, thin - EENT Eyes: Present: anicteric sclerae, EOMI ENT: Present: hearing grossly normal - Respiratory Respiratory: bilateral: diminished, other (congested cough) - Cardiovascular Rhythm: regular Heart sounds: normal: S1, S2 Abnormal Heart Sounds: Absent: systolic murmur, diastolic murmur, rub, S3 Gallop, S4 Gallop, click, other - Peripheral edema leg Peripheral Edema: bilateral: None - Gastrointestinal Gastrointestinal Comment(s): firm abd, no rebound, hypoactive BS General gastrointestinal: Present: distended - Neurologic Neurologic Comment(s): Generalized upper extremity tremor - Musculoskeletal Musculoskeletal: Present: generalized weakness - Psychiatric Psychiatric Comment(s): Alert, oriented to self, place. She knows she is confused. Started talking about the floor in the middle of conversation - Labs CBC & Chem 7: 08/20/22 06:25 08/20/22 06:25 Labs: Abnormal Lab Results - Last 24 Hours (Table) 08/19/22 08/19/22 08/19/22 Range/Units 10:26 18:00 20:20 WBC 17.57 H (4.50-10.00) X 10*3/uL RBC 2.32 L (4.10-5.20) X 10*6/uL Hgb 6.8 L* (12.0-15.0) g/dL Hct 23.0 L (37.2-46.3) % MCV 99.1 H (80.0-97.0) fL MCHC 29.6 L (32.0-37.0) g/dL RDW 15.3 H (11.5-14.5) % Immature Gran # 0.55 H (0.00-0.04) X 10*3/uL Neutrophils # 15.76 H (1.80-7.70) X 10*3/uL Lymphocytes # 0.66 L (0.90-5.00) X 10*3/uL Eosinophils # 0.01 L (0.04-0.35) X 10*3/uL Chloride (98-107) mmol/L POC Glucose (mg/dL) 63 L (70-110) mg/dL Calcium (8.4-10.2) mg/dL AST (14-36) U/L Alkaline Phosphatase (38-126) U/L Total Protein (6.3-8.2) g/dL Albumin (3.5-5.0) g/dL Crossmatch See Detail 08/19/22 08/19/22 08/20/22 Range/Units 21:05 22:20 00:19 WBC (4.50-10.00) X 10*3/uL RBC (4.10-5.20) X 10*6/uL Hgb (12.0-15.0) g/dL Hct (37.2-46.3) % MCV (80.0-97.0) fL MCHC (32.0-37.0) g/dL RDW (11.5-14.5) % Immature Gran # (0.00-0.04) X 10*3/uL Neutrophils # (1.80-7.70) X 10*3/uL Lymphocytes # (0.90-5.00) X 10*3/uL Eosinophils # (0.04-0.35) X 10*3/uL Chloride (98-107) mmol/L POC Glucose (mg/dL) 59 L 68 L 111 H (70-110) mg/dL Calcium (8.4-10.2) mg/dL AST (14-36) U/L Alkaline Phosphatase (38-126) U/L Total Protein (6.3-8.2) g/dL Albumin (3.5-5.0) g/dL Crossmatch 08/20/22 08/20/22 Range/Units 06:25 06:25 WBC 16.60 H (4.50-10.00) X 10*3/uL RBC 2.76 L (4.10-5.20) X 10*6/uL Hgb 8.2 L (12.0-15.0) g/dL Hct 26.9 L (37.2-46.3) % MCV 97.5 H (80.0-97.0) fL MCHC 30.5 L (32.0-37.0) g/dL RDW 15.9 H (11.5-14.5) % Immature Gran # 0.79 H (0.00-0.04) X 10*3/uL Neutrophils # 14.38 H (1.80-7.70) X 10*3/uL Lymphocytes # 0.73 L (0.90-5.00) X 10*3/uL Eosinophils # 0.03 L (0.04-0.35) X 10*3/uL Chloride 111 H (98-107) mmol/L POC Glucose (mg/dL) (70-110) mg/dL Calcium 7.8 L (8.4-10.2) mg/dL AST 47 H (14-36) U/L Alkaline Phosphatase 495 H (38-126) U/L Total Protein 3.9 L (6.3-8.2) g/dL Albumin 1.8 L (3.5-5.0) g/dL Crossmatch Microbiology - Last 24 Hours (Table) 08/16/22 18:15 Blood Culture - Preliminary Blood No Growth after 72 hours 08/16/22 18:00 Blood Culture - Preliminary Blood No Growth after 72 hours 08/18/22 17:21 Gram Stain - Preliminary Sputum Sputum Culture - Preliminary Gram Neg Bacilli - Imaging and Cardiology CT Scan - head: report reviewed Venous US: report reviewed Assessment and Plan (1) Right upper lobe pneumonia Current Visit: Yes Status: Acute Priority: High Code(s): J18.9 - PNEUMONIA, UNSPECIFIED ORGANISM SNOMED Code(s): 422480664 (2) Distended abdomen Current Visit: Yes Status: Acute Priority: High Code(s): R14.0 - ABDOMINAL DISTENSION (GASEOUS) SNOMED Code(s): 64002478 (3) Failure to thrive Current Visit: Yes Status: Acute Priority: High Code(s): DDS4355 - SNOMED Code(s): 81875256 (4) Swelling of right upper extremity Current Visit: Yes Status: Acute Priority: High Code(s): M79.89 - OTHER SPECIFIED SOFT TISSUE DISORDERS SNOMED Code(s): 144332161 (5) Liver mass Current Visit: Yes Status: Acute Priority: High Code(s): R16.0 - HEP ATOMEGALY, NOT ELSEWHERE CLASSIFIED SNOMED Code(s): 364793900 (6) Weakness Current Visit: Yes Status: Acute Priority: High Code(s): R53.1 - WEAKNESS SNOMED Code(s): 13236553 Plan: Pneumonia, cont treatment per IM Abd pain and distension. KUB abd ordered Pain in abd and back. Since admit, pt has been on no pain meds. IR morphine held because of AMS. Nursing held ER oxycontin due to mental status-checked MAR, No oxy ER given. Pt has robaxin for muscle spasms. Since all of her pain meds have been held, will DC for now. Reorder home percocet so pt has something available for pain. Cont aggressive bowel regimen for prevention of narcotic induced constipation Pending EUS biopsy results Warm compresses for superficial thrombus in the RUE Reviewed with pt CT brain without contrast, no met suspected. Family meeting in AM to discuss pt clinical course, pt and family expectations, pt wishes. We hope to be able to address code status as well. Case discussed with palliative care DUST COLLECTOR Attests: I have seen and examined pt, performed H&P, developed impression and plan of care. Discussed with dictator. Agree with documentation, dictated as a scribe.
[2022-08-21] MEDS: HEPARIN SODIUM,PORCINE/PF 5,000 UNIT/0.5 ML SYRINGE SQ SCH ×2 (00:56→09:05)
[2022-08-21] MEDS: PIPERACILLIN-TAZOBACTAM 3.375 GM in SODIUM CHLORIDE 0.9% 100 ML IVPB SCH ×2 (00:56→09:51)
[2022-08-21] MEDS: SODIUM CHLORIDE 0.9% 1,000 ML IV SCH ×2 (00:57→09:51)
[2022-08-21 01:47] LABS: Glucose,Whole Blood 78 mg/dL (70-110)
[2022-08-21 05:55] VITALS: BP 105/74; RESP 18; TEMP 98.2
[2022-08-21 07:14] LABS: Glucose,Whole Blood 68 mg/dL (70-110)
[2022-08-21] MEDS ORDERED: DEXTROSE 50% SYRINGE 50 ML IVP ONE (07:24)
[2022-08-21 07:43] LABS: Glucose,Whole Blood 114 mg/dL (70-110)
[2022-08-21] MEDS: IPRATROPIUM-ALBUTEROL 3 ML NEB INHALATION SCH ×2 (08:06→11:51)
[2022-08-21] MEDS: SYMBICORT 160-4.5 MCG INHALER INHALATION SCH (08:06)
[2022-08-21] MEDS ORDERED: ACETAMINOPHEN IV (For NPO) 1,000 MG in EMPTY BAG 1 BAG IVPB STA (08:37)
[2022-08-21] MEDS ORDERED: DEXTROSE 5%-0.45% NACL 1,000 ML IV SCH (08:45)
[2022-08-21] MEDS: polyethylene glycoL 3350 17 GM POWD.PACK PO SCH (09:05)
[2022-08-21] MEDS: FAMOTIDINE 20 MG TAB PO SCH (09:05)
[2022-08-21] MEDS: predniSONE 20 MG TAB PO SCH (09:05)
[2022-08-21] MEDS: SENNOSIDES-DOCUSATE SODIUM 1 EACH TAB PO SCH (09:05)
[2022-08-21] MEDS: PANTOPRAZOLE 40 MG TABLET PO SCH (09:05)
[2022-08-21] MEDS: NYSTATIN 100,000 UNIT/ML SUSP 500,000 UNIT/5 ML CUP PO SCH (09:06)
[2022-08-21] MEDS: FLUCONAZOLE 100 MG TAB PO SCH (09:06)
[2022-08-21] MEDS: OXYBUTYNIN CHLORIDE 5 MG TAB PO SCH (09:06)
[2022-08-21 09:24] LABS: Basophils # (A) 0.07 X 10*3/uL (0.00-0.10); Basophils % (A) 0.3 %; Eosinophils # (A) 0.02 X 10*3/uL (0.04-0.35); Eosinophils % (A) 0.1 %; HCT 29.3 % (37.2-46.3); HGB 8.7 g/dL (12.0-15.0); Immature Grans, Automated 4.9 %; Lymphocytes # (A) 0.56 X 10*3/uL (0.90-5.00); Lymphocytes % (A) 2.6 %; MCH 28.8 pg (27.0-32.0); MCHC 29.7 g/dL (32.0-37.0); Mean Platelet Volume 9.8 fL (9.5-12.2); Monocytes # (A) 0.82 X 10*3/uL (0.20-1.00); Monocytes % (A) 3.9 %; NRBC Per 100 WBC 0 /100 WBCS (0.0-0.0); Neutrophils # (A) 18.64 X 10*3/uL (1.80-7.70); Neutrophils % (A) 88.2 %; Platelet Count 417 X 10*3/uL (140-440); RBC 3.02 X 10*6/uL (4.10-5.20); WBC 21.15 X 10*3/uL (4.50-10.00)
--- NOTE | 2022-08-21 09:33 | XR ---
EXAMINATION TYPE: XR abdomen 1V DATE OF EXAM: 08/21/2022 9:06 AM CLINICAL HISTORY: Abdominal distention. TECHNIQUE: Two supine KUB images of the abdomen are obtained. COMPARISON: Abdominal x-ray one day earlier. CT abdomen and pelvis July 31, 2022 FINDINGS: Cholecystectomy clips are redemonstrated. Marked hepatomegaly again seen with significant m ass effect causing deviated bowel loops to the left abdomen and into the pelvis. Scattered gas seen i n nondistended small and large bowel loops. Lung bases redemonstrate partial visualization of improvi ng lateral lower lung acute infiltrate and/or atelectasis. Correlate clinically. Vascular calcificati on noted overlying the abdominal aorta redemonstrated. Osseous structures are intact. Increasing mild /moderate diffuse subcutaneous edema now present. IMPRESSION: Hepatomegaly with hepatic masses likely metastatic disease having significant mass effect in the abdomen redemonstrated. Overall nonobstructive bowel gas pattern. No significant change from recent studies. More prominent subcutaneous edema noted suggesting desired fluid overload state. Cor relate clinically.
[2022-08-21 09:55] LABS: Albumin 1.9 g/dL (3.8-4.9); Albumin/Globulin Ratio 0.83 (1.60-3.17); Anion Gap 11.8 mmol/L (10.00-18.00); BUN/Creat Ratio 15.8 Ratio (12.00-20.00); Blood Urea Nitrogen 7.9 mg/dL (9.0-27.0); Calcium 8.3 mg/dL (8.7-10.3); Carbon Dioxide 21.2 mmol/L (20.0-27.5); Globulin 2.3 g/dL (1.6-3.3); Non-African American GFR(CKD) 111.3 (60.0-200.0); Potassium 3.7 mmol/L (3.5-5.5); Total Bilirubin 0.2 mg/dL (0.30-1.20); Total Protein 4.2 g/dL (6.2-8.2)
--- NOTE | 2022-08-21 10:01 | CDI ---
Documentation Clarification Form Date: 08/21/2022 09:15:37 AM From: Alis Lundberg RN CCDS Admit Date: 08/16/2022 05:50:00 PM Patient Name: Tamiko Lui Visit Number: [id number] Discharge Date: ATTENTION: The Clinical Documentation Specialists (CDI) and [facility] Coding Staff appreciate your assistance in clarifying documentation. Please respond to the clarification below the line at the bottom and electronically sign. The CDI & [facility] Coding staff will review the response and follow-up if needed. Please note: Queries are made part of the Legal Health Record. If you have any questions, please contact the author of this message via ITS. Dr. Delfino [facility] acquired Pneumonia is documented 08/17, H&P thru 08/20, Medicine note. Additional clarification regarding the type of pneumonia is requested. History/Risk Factors: 52-year-old female presents to the ED with worsening shortness of breath and abdominal pain. Medical History: Advanced COPD, recently at [facility] for EGD / EUS, Metastatic adenocarcinoma cancer with unknown etiology and everyday smoker. 08/17, H&P. Clinical Indicators: WBC/Left shift: 08/20 Wbc 20.2; Neutrophils 19.0 Chest x-ray: 08/16 New infiltrate mid to lower peripheral acute infiltrate. Lung/Breathing assessment: 08/17, H&P Equal air entry with few scattered rhonchi, diminished breath sounds. Treatment: Antibiotics: 08/16 Azithromycin VIB x 1; 08/17 Azithromycin IVPB Q24 x 2 bags ordered; 08/17 Zosyn IVPB Q8HR. O2: 08/16 3L nasal cannula; 08/21 Venti Mask 15 L Breathing Tx: 08/16 Duoneb Inhalation RT x 1; 08/16 Duoneb Inhalation RT QID ADILENE; 08/17 Duoneb Inhalation RT Q2H PRN. Please clarify the type of pneumonia, if known: [ X] Gram Negative Bacterial Pneumonia [ ] Other bacteria (please specify) [ ] Other, please specify [ ] Unable to determine (Template Last Revised: December 2020) Gram Negative Bacterial Pneumonia MTDD
[2022-08-21] MEDS: GABAPENTIN 300 MG CAP PO SCH (10:38)
--- NOTE | 2022-08-21 11:51 | P.PN ---
Subjective Progress Note Date: 08/21/22 The patient is a 52-year-old female with past medical history remarkable for stage IV lung cancer with metastasis to the liver. She presented emergency department on 08/16/22 with complaints of a sore throat since after having an EGD performed at [facility]. She also has a history COPD and is on 3 L NC at home. She denies any constipation or worsening of her chronic abdominal pain. Denies any nausea or vomiting. Denies any chest pain. Denies any cough. 08/17 The patient is resting in bed. She is A&O x 3 but has trouble finding some of her words. She states that she had severe pain in her stomach and throat and shortness of breath after her EGD and EUS at [place] yesterday. She states she has just been diagnosed with liver and lung cancer in June. She is still in shock. She states that just lost her mother to cancer in January. Emotional support provided. Dr. Rincon was at the bedside. He told her that there was a mass in the pancreas that looked suspicious yesterday that was biopsied at [place]. The patient stated that she is waiting for test results to see what her treatment plan will entail. She is tired of being in pain. Her goal is prolonged survival and is interested in treatment if it will give her even a couple extra months to live. 08/20 The patient can answer all questions correctly. However at other times she is not following the conversation. The RN reports the patient is also hallucinating. She is aware that she is confused. The patient has head a Head CT which only revealed age related changes, no acute process. Her abdomen a ppears slightly more distended and firm today. Her LBM was [employer]. Her confusion is thought to be caused by her pain medication. She is still on her long acting morphine, but the short acting IV pushes have been discontinued since yesterday. The oncology team was also at the bedside. They have asked for a family meeting tomorrow at 0930. RN aware. Innovation Manager called the patient's sister, Tammi, who stated she would call the patient's children and significant other to let them know. Objective - Vital Signs Vital signs: Vital Signs Temp 98.2 F 08/21/22 05:41 Pulse 124 H 08/21/22 08:22 Resp 18 08/21/22 05:41 BP 105/74 08/21/22 05:41 Pulse Ox 98 08/21/22 08:10 FiO2 40 08/21/22 08:10 Intake & Output 08/20/22 08/21/22 08/21/22 18:59 06:59 18:59 Intake Total 1400 1550 Output Total 300 Balance 1400 1250 Intake: Intake, IV Titration 1400 1300 Amount Piperacillin-Tazobactam 3 200 100 .375 gm In Sodium Chloride 0.9% 100 ml @ 25 mls/hr IVPB Q8HR ADILENE Rx# :[id number] Sodium Chloride 0.9% 1, 1200 1200 000 ml @ 100 mls/hr IV . Q10H ADILENE Rx#:[id number] Oral 250 Output: Urine 300 Stool 0 Other: Voiding Method Bedside Commode # Voids 1 1 # Bowel Movements 0 - Exam General: Moderate respiratory distress. Chronically ill appearing Appears older than stated age HEENT: Head is atraumatic, normocephalic. Mucus membranes dry. CV: Tachycardic. S1 and S2. Peripheral pulses equal. 2/4 Lungs: Scattered rhonchi throughout. Respirations labored. 15L Ventimask Abdomen/GI: Distended and firm, + abdominal tenderness. Musculoskeletal/ Extremities: No gross atrophy. + generalized weakness Vascular: Radial pulses equal. 2/4. + upper extremity edema R>L. Trace LE edema. Skin: Warm and dry Neurologic: Lethargic Confused at times. Bilateral hand tremor. Psychiatric: Flat affect. - Labs CBC & Chem 7: 08/21/22 03:50 08/21/22 03:50 Labs: Abnormal Lab Results - Last 24 Hours (Table) 08/20/22 08/20/22 08/21/22 Range/Units 20:15 20:41 03:50 WBC 21.15 H (4.50-10.00) X 10*3/uL RBC 3.02 L (4.10-5.20) X 10*6/uL Hgb 8.7 L (12.0-15.0) g/dL Hct 29.3 L (37.2-46.3) % MCHC 29.7 L (32.0-37.0) g/dL RDW 16.0 H (11.5-14.5) % Immature Gran # 1.04 H (0.00-0.04) X 10*3/uL Neutrophils # 18.64 H (1.80-7.70) X 10*3/uL Lymphocytes # 0.56 L (0.90-5.00) X 10*3/uL Eosinophils # 0.02 L (0.04-0.35) X 10*3/uL BUN (9.0-27.0) mg/dL Creatinine (0.6-1.5) mg/dL Glucose (70-110) mg/dL POC Glucose (mg/dL) 60 L 63 L (70-110) mg/dL Calcium (8.7-10.3) mg/dL Total Bilirubin (0.30-1.20) mg/dL AST (13-35) U/L Alkaline Phosphatase (41-126) U/L Total Protein (6.2-8.2) g/dL Albumin (3.8-4.9) g/dL Albumin/Globulin Ratio (1.60-3.17) g/dL 08/21/22 08/21/22 08/21/22 Range/Units 03:50 07:13 07:41 WBC (4.50-10.00) X 10*3/uL RBC (4.10-5.20) X 10*6/uL Hgb (12.0-15.0) g/dL Hct (37.2-46.3) % MCHC (32.0-37.0) g/dL RDW (11.5-14.5) % Immature Gran # (0.00-0.04) X 10*3/uL Neutrophils # (1.80-7.70) X 10*3/uL Lymphocytes # (0.90-5.00) X 10*3/uL Eosinophils # (0.04-0.35) X 10*3/uL BUN 7.9 L (9.0-27.0) mg/dL Creatinine 0.5 L (0.6-1.5) mg/dL Glucose 67 L (70-110) mg/dL POC Glucose (mg/dL) 68 L 114 H (70-110) mg/dL Calcium 8.3 L (8.7-10.3) mg/dL Total Bilirubin 0.20 L (0.30-1.20) mg/dL AST 59 H (13-35) U/L Alkaline Phosphatase 495 H (41-126) U/L Total Protein 4.2 L (6.2-8.2) g/dL Albumin 1.9 L (3.8-4.9) g/dL Albumin/Globulin Ratio 0.83 L (1.60-3.17) g/dL Microbiology - Last 24 Hours (Table) 08/16/22 18:00 Blood Culture - Preliminary Blood No Growth after 96 hours 08/16/22 18:15 Blood Culture - Preliminary Blood No Growth after 96 hours 08/18/22 17:21 Gram Stain - Final Sputum Sputum Culture - Final Pseudomonas aeruginosa Assessment and Plan Assessment: Symptoms * Pain - 8/10 abdominal pain, Continue, Robaxin, and Neurotin. Added MsContin, and Percocet * Fatigue - decreased energy * SOB - + sob at rest, worsens with activity. Continue Duoneb, Symbicort, Zosyn, Prednisone, on 15L Ventimask * Insomnia - Yes, continue Trazodone * N/V - Yes, intermittent. Continue Zofran, Reglan, and Compazine * Anxiety - Yes, continue Ativan * Depression - Yes, continue Pristiq, and Vraylar * Confusion - Yes, new onset * Agitation - No * Hallucinations - Yes, new onset * Appetite/weight loss - No recent weight loss, + decreased appetite * Dysphagia - Yes, has had trouble swallowing pills. Pills given with applesauce * Constipation - No, continue Miralax, and Senokot-S * Incontinence - Occasional, continue Ditropan * Itch - No * Cough - No * Thrush - Yes, continue Nystatin swish and swallow Plan: Summary/Goals - Per nursing staff, the patient has been tachycardic i ntermittently as high as 160bpm. She is not eating or drinking very much causing her blood sugars to be low. Her respiratory status has also declined and she is now requiring 15L O2 via ventimask. Family meeting with oncology, Dr. Rincon held. The patient, her 4 children, her sister, and her significant other were present. The patient is lethargic and confused. She is not able to follow the conversation. Dr. Rincon spent a lot of time explaining to the family the patient's liver,lung, and pancreatic cancer. The patient is too debilitated, weak and fragile to tolerate any kind of treatment. The patient's family is in agreement that they do not want her to suffer. The value quality o f life over quantity. They have decided to take her home with hospice. A consult has been placed. The family is also in agreement that they would like her to be a DNR. Advanced Directives - None on file Code Status - DNR Thank you for this consultation Ella Knutson [facility]- Palliative Care [facility] [id number] Email: [email or web address] Time with Patient: Greater than 30
[2022-08-21 12:06] VITALS: PULSE 121
--- NOTE | 2022-08-21 14:28 | P.DS ---
Providers Date of admission: 08/16/22 17:50 Expected date of discharge: 08/21/22 Attending physician: Delfino Tyler MD Consults: 08/16/22 17:48 Consult Physician Routine Consulting Provider: Figueroa Varela Consult Reason/Comments: stage 4 cancer Do you want consulting provider notified?: Yes, Notify in am 08/17/22 10:40 Consult to Palliative Care Routine Consulting Provider: Ella Knutson Consult Reason/Comments: informational mtg Do you want consulting provider notified?: Yes Primary care physician: Daya Tyler [facility] Course: Metastatic adenocarcinoma of the liver, primary unclear Acute left mid, lower lung pneumonia, healthcare acquired. Recently at [place] for EGD with EUS with biopsies-reporting suspicious pancreatic mass ,pathology pending, in a patient with metastatic adenocarcinoma ,unclear primary-workup in progress. Multiple enlarged liver masses reported on CT of 07/31/2022, consistent with metastatic disease, chest x-rays reporting possible anterior mediastinal mass, left midlung 4.0 cm mass. Oncology following Acute on chronic hypoxic respiratory failure, secondary to the above, wears 3 L nasal cannula O2 at home Leukocytosis secondary to the above Anemia, secondary to malignancy COPD, advanced Hypertension Hyperlipidemia Osteoarthritis History of PE Chronic back and neck pain Depression Moderate protein calorie malnutrition, BMI 19.3 Failure to thrive, poor diet intake times weeks Acute metabolic encephalopathy, suspect medication induced, brain CT reported no acute intracranial process, pain management adjusted Right arm swelling ,Venous Doppler reporting no DVT, limited superficial cephalic vein thrombus. No code, no CPR, no intubation This is a 52-year-old female past medical history of advanced COPD, nicotine dependence, marijuana use , gastroesophageal reflux disease , metastatic adenocarcinoma cancer-etiology unclear, currently being worked up, and multiple other medical issues presented to the ER with complaints of worsening dyspnea 1-2 days, ongoing poor intake, nausea ,vomiting, abdominal pain times days. Reports she was recently at [facility] 1-2 days ago for EGD/EUS with biopsy. No treatment started yet, last at oncology approximately 2 weeks ago. Denies dysuria. Reports regular bowel movements with last bowel movement yesterday. Denies any hemoptysis, rectal bleeding. Denies any chest pain, palpitations. Denies any syncope. Denies any fever, chills, reports nonproductive cough. Chest x-ray reporting new left mid lower lobe peripheral acute infiltrate, persistent anterior left midlung 4.0 cm mass worrisome for neoplasm. Afebrile, WBC 20.2, hemoglobin 9.8, platelets 386, neutrophils 94, INR 1.3, sodium 133, potassium 4.1, bicarb 32. Glucose 49, POC glucose 103. L actic acid 1.4 ,Renal function stable,T bili 0.6, AST 122, ALT 55, alk phos 1247. BNP 1140. Carroll virus, influenza A and B PCR's negative. Received IV fluid bolus, IV fluid hydration, IV antibiotics of Zosyn and azithromycin, antiemetics and pain management initiated. Blood cultures obtained. 08/20/2022 no acute overnight events. Continues to have uncontrolled abdominal pain, malaise, weakness. KUB ordered. Hallucinating this morning, "seeing her chikdren in the room", in a patient on high doses of morphine. Patient had a palliative/hospice informational meeting and wishes to pursue treatment at this time. Maintaining O2 sats in the 90s, on 3 L nasal cannula. 08/21/2022 respiratory status declined overnight. Yesterday he required 3 L nasal cannula O2 to maintain O2 sats in the 30s currently at 12 L and team as to maintain O2 sats in the low 90s, mild confusion. Tachycardic. Yesterday the pain medication regimen adjusted secondary to lethargy and hallucinations, currently on Percocet. Increased abdominal firmness with significant increase in pain. Hypoglycemic, requiring D50. Extremely fatigued. KUB reported nonobstructive bowel gas pattern, very large hepatic masses, increased density of the abdomen, mass effect displacing stomach inferiorly. Flat plate of the abdomen reported significant mass effect of the abdomen redemonstrated with hepatomegaly, hepatic masses likely metastatic disease, overall nonobstructive bowel gas pattern, no significant change from recent study, more prominent subcutaneous edema noted. Family meeting with oncology completed; given her declined patient is not a candidate for treatment at this time, patient elected hospice care. Refer to oncology's notes regarding Rm's pathology reported grade 2 neuroendocrine tumor, EGD reported hypodense pancreatic mass, possible 2 separate cancers or single metastatic neuroendocrine tumor related to differing pathology reports. Patient will proceed with GI. Hospice today with request to transfer home tomorrow once equipment is arranged. Comfort care pathway in progress. Prognosis guarded given multiple complex medical issues. The impression and plan of care has been dictated as directed. : I performed a history and examination of this patient, discussed the same with the dictator. I agree with the dictator's note ,documented as a scribe. Any additional findings or plans will be noted. Patient Condition at Discharge: Poor Plan - Discharge Summary Discharge Rx Participant: No New Discharge Prescriptions: Continue Fluticasone/Umeclidin/Vilanter [Trelegy Ellipta 100-62.5-25] 1 puff INHALATION RT-DAILY Oxybutynin Chloride 5 mg PO BID Discontinued Primidone [Mysoline] 100 mg PO HS Desvenlafaxine [Pristiq ER] 100 mg PO HS traZODone HCL 200 mg PO HS Gabapentin [Neurontin] 300 mg PO BID #6 cap Ondansetron Odt [Zofran ODT] 8 mg PO Q8H PRN PRN Reason: Nausea Morphine Sulfate ER [Ms Contin] 30 mg PO Q12HR tab Famotidine [Pepcid] 20 mg PO BID tab Omeprazole [PriLOSEC] 20 mg PO DIRECTED Ergocalciferol [Vitamin D2 (1250 Mcg = 14616 Iu)] 1,250 mcg PO MO Cariprazine HCl [Vraylar] 3 mg PO HS Prochlorperazine [Compazine] 10 mg PO BID PRN PRN Reason: Nausea Desvenlafaxine Succinate [Pristiq ER] 50 mg PO HS Docusate [Colace] 100 mg PO BID cap polyethylene glycoL 3350 [Miralax] 17 gm PO DAILY packet Folic Acid 1 mg PO DAILY #90 tablet predniSONE [Deltasone] 20 mg PO DAILY oxyCODONE-APAP 7.5-325MG [Percocet 7.5-325 mg] 1 tab PO Q4HR PRN PRN Reason: Breakthrough Pain Fluconazole [Diflucan] 200 mg PO DIRECTED No Action Ipratropium-Albuterol Nebulize [Duoneb 0.5 mg-3 mg/3 ml Soln] 3 ml INHALATION RT-TID PRN PRN Reason: Shortness Of Breath methocarbamoL [Robaxin-750] 750 mg PO TID PRN PRN Reason: Muscle Spasm Albuterol Sulfate [Proair Hfa] 2 puff INHALATION RT-Q6H PRN PRN Reason: Shortness Of Breath Ipratropium-Albuterol Nebulize [Duoneb 0.5 mg-3 mg/3 ml Soln] 3 ml INHALATION RT-QID 30 Days #120 each Budesonide-Formot 160-4.5 Mcg [Symbicort 160-4.5 Mcg Inhaler] 2 puff INHALATION RT-BID 30 Days #1 each Discharge Medication List Ipratropium-Albuterol Nebulize [Duoneb 0.5 mg-3 mg/3 ml Soln] 3 ml INHALATION RT-TID PRN 06/14/20 [History] methocarbamoL [Robaxin-750] 750 mg PO TID PRN 09/18/21 [History] Albuterol Sulfate [Proair Hfa] 2 puff INHALATION RT-Q6H PRN 02/17/22 [History] Fluticasone/Umeclidin/Vilanter [Trelegy Ellipta 100-62.5-25] 1 puff INHALATION RT-DAILY 02/17/22 [History] Oxybutynin Chloride 5 mg PO BID 03/07/22 [History] Budesonide-Formot 160-4.5 Mcg [Symbicort 160-4.5 Mcg Inhaler] 2 puff INHALATION RT-BID 30 Days #1 each 07/31/22 [Rx] Ipratropium-Albuterol Nebulize [Duoneb 0.5 mg-3 mg/3 ml Soln] 3 ml INHALATION RT-QID 30 Days #120 each 07/31/22 [Rx] Follow up Appointment(s)/Referral(s): Figueroa Varela MD [STAFF PHYSICIAN] - 08/27/22 4:15 pm (This appt is at the office located behind [facility]) Daya Tyler DO [Primary Care Provider] - As Needed Activity/Diet/Wound Care/Special Instructions: Transition into [facility] hospice Discharge Disposition: DISCH TO HOSPICE MED FACILTY
--- NOTE | 2022-08-23 13:40 | CDI ---
Documentation Clarification Form Date: 08/23/2022 01:22:00 PM From: Lashell Ruvalcaba Admit Date: 08/16/2022 05:50:00 PM Patient Name: Tamiko Lui Visit Number: [id number] Discharge Date: 08/21/2022 12:03:00 PM ATTENTION: The Clinical Documentation Specialists (CDI) and [facility] Coding Staff appreciate your assistance in clarifying documentation. Please respond to the clarification below the line at the bottom and electronically sign. The CDI & [facility] Coding staff will review the response and follow-up if needed. Please note: Queries are made part of the Legal Health Record. If you have any questions, please contact the author of this message via ITS. Dr. Delfino Tyler Healthcare Acquired Pneumonia is documented in H&P, progress notes, and the Discharge Summary. Patient recently had an EGD with EUS with biopsies at [place] on 08/15/22. Additional clarification is requested regarding the relationship, if any, that exists between the diagnosis and the procedure. Patients Admitting Diagnosis: Hospital Acquired Pneumonia Post-Operative Diagnosis: work up for pancreatic mass Procedure performed: EGD with EUS and Biopsies History/Risk Factors: Metastatic adenocarcinoma of the liver, primary unclear, pancreatic mass, lung mass, acute on chronic hypoxic respiratory failure, leukocytosis, HTN, COPD, failure to thrive, SOB, sore throat. Clinical Indicators: SOB, leukocytosis, sore throat, pulse 130, BP 96/75 Treatment: IV fluids, hydration, IV antibiotics of Zosyn and azithromycin, anti-emetics and pain management Consults: onc, hospice, medical What relationship, if any, exists between the diagnosis of healthcare acquired pneumonia and the procedure: [ ] HAC Pneumonia is a complication of surgical procedure [ ] HAC Pneumonia is related to patients co-morbid condition(s) and not a complication of the procedure [ ] HAC Pneumonia has been ruled out [ ] Other please specify ____ [ ] Unable to determine MTDD
== END 2022-08-21 12:03 | disposition hospice, inpatient (51) | DRG 177 ==
LOC: EC 14:47 → 5NMEDONC 17:50
PROVIDERS: ADMIT Family Medicine; ATTEND Family Medicine
DX: J15.6 Pneumonia due to other Gram-negative bacteria (principal); G92.8 Other toxic encephalopathy; J96.21 Acute and chronic respiratory failure with hypoxia; J44.0 Chronic obstructive pulmonary disease with (acute) lower respiratory infection; Z68.1 Body mass index [BMI] 19.9 or less, adult; C78.7 Secondary malignant neoplasm of liver and intrahepatic bile duct; R64 Cachexia; E44.0 Moderate protein-calorie malnutrition; B37.0 Candidal stomatitis; C78.00 Secondary malignant neoplasm of unspecified lung; I82.611 Acute embolism and thrombosis of superficial veins of right upper extremity; C80.1 Malignant (primary) neoplasm, unspecified; R62.7 Adult failure to thrive; I67.1 Cerebral aneurysm, nonruptured; Z66 Do not resuscitate; Z51.5 Encounter for palliative care; I12.9 Hypertensive chronic kidney disease with stage 1 through stage 4 chronic kidney disease, or unspecified chronic kidney disease; N18.9 Chronic kidney disease, unspecified; F32.A Depression, unspecified; D63.0 Anemia in neoplastic disease; Z99.81 Dependence on supplemental oxygen; E86.0 Dehydration; K21.00 Gastro-esophageal reflux disease with esophagitis, without bleeding; M19.90 Unspecified osteoarthritis, unspecified site; E78.5 Hyperlipidemia, unspecified; Y95 Nosocomial condition; Z20.822 Contact with and (suspected) exposure to COVID-19; E16.2 Hypoglycemia, unspecified; R32 Unspecified urinary incontinence; G62.9 Polyneuropathy, unspecified; M54.50 Low back pain, unspecified; R25.1 Tremor, unspecified; F17.200 Nicotine dependence, unspecified, uncomplicated; F41.9 Anxiety disorder, unspecified; T40.2X5A Adverse effect of other opioids, initial encounter; G47.00 Insomnia, unspecified; R53.81 Other malaise; M54.2 Cervicalgia; G89.3 Neoplasm related pain (acute) (chronic); K86.9 Disease of pancreas, unspecified; Z87.01 Personal history of pneumonia (recurrent); Z98.82 Breast implant status; Z86.711 Personal history of pulmonary embolism; Z79.51 Long term (current) use of inhaled steroids; Z79.52 Long term (current) use of systemic steroids; Z79.899 Other long term (current) drug therapy; Z88.8 Allergy status to other drugs, medicaments and biological substances; Z63.4 Disappearance and death of family member
CPT/HCPCS: 36415; 70450; 71046; 74018; 80048; 80053; 81001; 82140; 83605; 83735; 83880; 85025; 85610; 85730; 86850; 86900; 86901; 86920; 87040; 87070; 87077; 87186; 87205; 87502; 87635; 93005; 94640; 94760; 96361; 96365; 96368; 96375; 99285

== ENCOUNTER 2022-08-21 11:21 | Inpatient (IN) | payer MEDICAID ==
[2022-08-21] MEDS ORDERED: ATROPINE OPHTH SOLN 1% 5ML BTL SUBLINGUAL PRN (11:26)
[2022-08-21] MEDS ORDERED: ACETAMINOPHEN TAB 325 MG TAB PO PRN (11:26)
[2022-08-21] MEDS ORDERED: ONDANSETRON 4 MG/2 ML VIAL IVP PRN (11:26)
[2022-08-21] MEDS: MORPHINE CONC SOLN 10mg/0.5mL ORAL SYRG PO SCH ×3 (12:36→21:28)
[2022-08-21] MEDS: LORazepam 0.5 MG TAB PO SCH ×2 (12:37→18:02)
[2022-08-21] MEDS: SCOPOLAMINE 1 MG/72 HR PATCH TRANSDERM SCH (12:37)
--- NOTE | 2022-08-21 13:10 | P.PN ---
Subjective Progress Note Date: 08/21/22 Principal diagnosis: Metastatic adenocarcinoma -Noted to have progressive hypoxia and tachycardia overnight with HR 160s and now on 12 L NC -KUB revealed no obstruction, but inferiorly displaced stomach due to known large hepatic masses -She appears to be intermittently confused today, but she was able to recognize me Objective - Vital Signs Vital signs: Intake & Output 08/20/22 08/21/22 08/21/22 18:59 06:59 18:59 Weight 51 kg - Constitutional Constitutional Comment(s): Somnolent with intermittently being able to follow conversation, appears more fatigued, moderate distress - EENT Eyes: Present: EOMI - Gastrointestinal General gastrointestinal: Present: distended, hepatomegaly - Integumentary Integumentary: Present: pale - Psychiatric Psychiatric Comment(s): Unable to follow conversation fully Assessment and Plan Assessment: Ms. Lui is a 52 year old woman with previously diagnosed adenocarcinoma of the liver of unclear primary who presented with increased cough and weakness following EGD concerning for pneumonia. Her clinical status has decompensated despite appropriate supportive measures such as broad spectrum antibiotics and blood transfusion. (1) Metastatic adenocarcinoma Current Visit: Yes Status: Acute Code(s): C79.9 - SECONDARY MALIGNANT NEOPLASM OF UNSPECIFIED SITE SNOMED Code(s): 766000236660257 Plan: #Metastatic adenocarcinoma -Known from liver biopsy on 07/26/22, IHC concerning for GI primary -EGD on 08/15/22 revealing hypodense pancreatic mass measuring 1.5 x 1.7 cm -Pathology reported from [facility] notes grade 2 neuroendocrine tumor -It is unclear whether she has 2 separate cancers or single metastatic neuroendocrine tumors given differing pathology reports -Clinically, she has been decompensating with increased confusion, abdominal distention, and now hypoxia, and tachycardia -Goals of care meeting held with Palliative care and multiple family members, including her daughter -We discussed her current decline and that she would not be a candidate for treatment at this moment regardless of histologic diagnosis -Family notes their main goal is for increased quality of life, not quantity. This was relayed to Ms. Lui, which she agrees with -Following our discussion, she has elected for hospice care, which is appropriate given her rapid clinical decline -Hospice will be arranged for Ms. Lui We remain available should any further questions or concerns arise. Time with Patient: Greater than 30
[2022-08-21] MEDS: SENNOSIDES-DOCUSATE SODIUM 1 EACH TAB PO SCH (21:08)
[2022-08-21] MEDS: GABAPENTIN 300 MG CAP PO SCH (21:08)
[2022-08-21] MEDS: OXYBUTYNIN CHLORIDE 5 MG TAB PO SCH (21:22)
[2022-08-22] MEDS: LORazepam 0.5 MG TAB PO SCH ×2 (02:06→08:46)
[2022-08-22] MEDS: MORPHINE CONC SOLN 10mg/0.5mL ORAL SYRG PO SCH ×4 (04:04→14:42)
[2022-08-22] MEDS: OXYBUTYNIN CHLORIDE 5 MG TAB PO SCH (08:46)
[2022-08-22] MEDS: GABAPENTIN 300 MG CAP PO SCH (08:46)
[2022-08-22] MEDS: SENNOSIDES-DOCUSATE SODIUM 1 EACH TAB PO SCH (08:46)
[2022-08-22] MEDS ORDERED: ACETAMINOPHEN SUPPOSITORY 650 MG SUPP RECTAL PRN (11:29)
[2022-08-22] MEDS: MORPHINE SULFATE (100 MG/2 ML) 100 MG in SODIUM CHLORIDE 0.9% 100 ML IV SCH (12:33)
[2022-08-22] MEDS ORDERED: MORPHINE SULFATE 2 MG/ML SYRINGE IVP PRN (14:55)
[2022-08-23 01:10] VITALS: RESP 18
[2022-08-23] MEDS: GLYCOPYRROLATE 0.2 MG/ML 2 ML VIAL IVP SCH ×3 (13:37→23:15)
[2022-08-23] MEDS: LORazepam 1 MG/0.5 ML VIAL IV PRN ×2 (15:19→21:03)
--- NOTE | 2022-08-23 17:21 | P.PN ---
Progress Note - Text Progress Note Date: 08/23/22 Continues on [facility] hospice. Maintained on morphine drip, rate increased. Resting calmly, appears comfortable. Joshua added for increased secretions. Son at bedside, questions and concerns addressed. Support given. The impression and plan of care has been dictated as directed. : I performed a history and examination of this patient, discussed the same with the dictator. I agree with the dictator's note ,documented as a scribe. Any additional findings or plans will be noted.
[2022-08-23] MEDS: MORPHINE SULFATE (100 MG/2 ML) 100 MG in SODIUM CHLORIDE 0.9% 100 ML IV SCH (17:39)
[2022-08-24] MEDS: GLYCOPYRROLATE 0.2 MG/ML 2 ML VIAL IVP SCH ×2 (05:17→12:36)
[2022-08-24] MEDS: LORazepam 1 MG/0.5 ML VIAL IV PRN (05:26)
[2022-08-24] MEDS: MORPHINE SULFATE (100 MG/2 ML) 100 MG in SODIUM CHLORIDE 0.9% 100 ML IV SCH (12:36)
[2022-08-24] MEDS: SCOPOLAMINE 1 MG/72 HR PATCH TRANSDERM SCH (13:14)
== END 2022-08-24 08:10 | disposition expired | DRG 951 ==
LOC: 5NMEDONC 12:07
PROVIDERS: ADMIT Family Medicine; ATTEND Family Medicine
DX: Z51.5 Encounter for palliative care (principal); J18.9 Pneumonia, unspecified organism; J96.21 Acute and chronic respiratory failure with hypoxia; E44.0 Moderate protein-calorie malnutrition; R62.7 Adult failure to thrive; Z68.1 Body mass index [BMI] 19.9 or less, adult; J44.0 Chronic obstructive pulmonary disease with (acute) lower respiratory infection; C7A.8 Other malignant neuroendocrine tumors; D63.0 Anemia in neoplastic disease; Z20.822 Contact with and (suspected) exposure to COVID-19; G62.9 Polyneuropathy, unspecified; F32.A Depression, unspecified; E78.5 Hyperlipidemia, unspecified; R00.0 Tachycardia, unspecified; N18.9 Chronic kidney disease, unspecified; I12.9 Hypertensive chronic kidney disease with stage 1 through stage 4 chronic kidney disease, or unspecified chronic kidney disease; K21.9 Gastro-esophageal reflux disease without esophagitis; F17.210 Nicotine dependence, cigarettes, uncomplicated; M19.90 Unspecified osteoarthritis, unspecified site; J45.909 Unspecified asthma, uncomplicated; G89.29 Other chronic pain; F41.9 Anxiety disorder, unspecified; Z88.8 Allergy status to other drugs, medicaments and biological substances; Z86.711 Personal history of pulmonary embolism; Z90.49 Acquired absence of other specified parts of digestive tract